=== PATIENT | female | born 1960 | race Caucasian/White ===

== ENCOUNTER 2023-05-26 19:11 | Inpatient (IN) ==
[2023-05-26] MEDS ORDERED: HYDROmorphone INJ 1 MG/ML SYRINGE IV STA (19:18)
[2023-05-26] MEDS ORDERED: OPTIRAY 320 500ml IV ONE (20:01)
[2023-05-26] MEDS ORDERED: LORazepam 2 MG/1 ML VIAL IV STA (20:02)
--- NOTE | 2023-05-26 20:21 | CT Scan Report ---
Exam(s): CTA CHEST W/WO Contrast IV Amt: 108 ml opti 320 EXAM: CT Angiography Chest Without and With Intravenous Contrast CLINICAL HISTORY: Reason for exam: ro dissection. TECHNIQUE: Axial computed tomographic angiography images of the chest without and with intravenous contrast. CTDI is 48 mGy and DLP is 1765.87 mGy-cm. Automated exposure control was utilized for the study. A dose lowering technique was utilized adhering to the principles of ALARA. MIP reconstructed images were created and reviewed. CONTRAST: Patient received 108 ml opti 320 of IV contrast COMPARISON: None FINDINGS: Pulmonary arteries: Unremarkable. No pulmonary embolus identified. Aorta: Atherosclerotic changes of the aorta. No aortic aneurysm or dissection. Lungs: Focal consolidation in the left lower lobe may represent pneumonia. Nonspecific mass cannot be excluded. Follow-up exam could be performed to reevaluate. Emphysematous changes. Pleural space: Unremarkable. No significant effusion. No pneumothorax. Heart: Coronary artery and aortic valve calcifications. No significant pericardial effusion. No evidence of RV dysfunction. Bones/joints: Degenerative changes of the spine. No acute fracture. No dislocation. Soft tissues: Unremarkable. Lymph nodes: Unremarkable. No enlarged lymph nodes. Liver: Hepatic steatosis. Kidneys and ureters: Left renal cyst. IMPRESSION: 1. No pulmonary embolus identified. 2. Focal consolidation in the left lower lobe may represent pneumonia. Nonspecific mass cannot be excluded. Follow-up exam could be performed to reevaluate. 3. Atherosclerotic changes of the aorta. No aortic aneurysm or dissection. 4. Emphysematous changes. Electronically signed by: Cherie Calzada M.D. 05/26/23 20:20 PM
--- NOTE | 2023-05-26 20:27 | CT Scan Report ---
Exam(s): CTA ABDOMEN + PELVIS With Contrast IV Amt: 108 ml opti 320 EXAM: CT Angiography Abdomen and Pelvis With Intravenous Contrast CLINICAL HISTORY: Reason for exam: ro dissection. TECHNIQUE: Axial computed tomographic angiography images of the abdomen and pelvis with intravenous contrast. CTDI is 48 mGy and DLP is 1765.87 mGy-cm. Automated exposure control was utilized for the study. A dose lowering technique was utilized adhering to the principles of ALARA. MIP reconstructed images were created and reviewed. CONTRAST: Patient received 108 ml opti 320 of IV contrast COMPARISON: None FINDINGS: VASCULATURE: Aorta: Atherosclerotic changes of the vasculature. Mild aneurysmal dilatation of the abdominal aorta, measuring approximately 3.4 cm in diameter. No aortic dissection. Celiac trunk and mesenteric arteries: No acute findings. No occlusion or significant stenosis. Renal arteries: No acute findings. No occlusion or significant stenosis. Iliac arteries: No acute findings. No occlusion or significant stenosis. Lung bases: Please see accompanying CT chest for further details. ABDOMEN: Liver: Hepatic steatosis. Hepatomegaly. Gallbladder and bile ducts: Unremarkable. No calcified stones. No ductal dilation. Pancreas: Unremarkable. No ductal dilation. No mass. Spleen: Splenomegaly. Adrenals: Unremarkable. No mass. Kidneys and ureters: Excreting contrast in the renal collecting systems. No hydronephrosis. Atrophy of the left kidney, hypoenhancement, and asymmetrically decreased excreting contrast. Left renal cyst. Stomach and bowel: Unremarkable. No mucosal thickening. No bowel obstruction or inflammation. PELVIS: Appendix: Normal appendix. Bladder: Distended bladder. Reproductive: Unremarkable as visualized. ABDOMEN and PELVIS: Intraperitoneal space: Unremarkable. No significant fluid collection. No free air. Bones/joints: Mild degenerative changes of the spine. No acute fracture. No dislocation. Soft tissues: Injection granulomas in the right gluteal soft tissues. Lymph nodes: Unremarkable. No enlarged lymph nodes. IMPRESSION: 1. Hepatic steatosis. Hepatomegaly. 2. Splenomegaly. 3. Atherosclerotic changes of the vasculature. Mild aneurysmal dilatation of the abdominal aorta, measuring approximately 3.4 cm in diameter. No aortic dissection. Electronically signed by: Cherie Calzada M.D. 05/26/23 20:25 PM
[2023-05-26 20:32] LABS: Basophils # (auto) 0.05 K/uL (0.00-0.20); Basophils % (auto) 0.6 %; Eosinophils # (auto) 0.11 K/uL (0.00-0.50); Eosinophils % (auto) 1.3 %; Hematocrit (blood only) 44.6 % (37.0-47.0); Hemoglobin 15.4 g/dl (12.0-16.0); Immature Granulocytes # (auto) 0.09 K/uL (0.01-0.20); Immature Granulocytes % (auto) 1.1 %; Lymphocytes # (auto) 1.78 K/uL (1.20-3.40); Lymphocytes % (auto) 21.3 %; Mean Corpuscular Hemoglobin 30.6 pg (25.0-34.0); Mean Corpuscular Hgb Conc 34.5 g/dL (32.0-36.0); Mean Corpuscular Volume 88.7 fL (80.0-100.0); Mean Platelet Volume 10.7 fL (9.4-12.4); Monocytes # (auto) 0.74 K/uL (0.11-0.59); Monocytes % (auto) 8.9 %; Neutrophils # (auto) 5.59 K/uL (1.40-6.50); Neutrophils % (auto) 66.8 %; Platelet Count 252 K/uL (130-400); RDW Coefficient of Variation 12.6 % (11.5-14.5); RDW Standard Deviation 40.7 fL (36.4-46.3); Red Blood Count 5.03 M/uL (4.20-5.40); White Blood Count 8.36 K/ul (4.8-10.8)
[2023-05-26 20:33] LABS: iSTAT Creatinine 0.8 mg/dl (0.6-1.3); iSTAT Hemoglobin 15.3 g/dl (12.0-16.0); iSTAT Ionized Calcium 1.13 mmol/l (1.12-1.32); iSTAT Potassium 5.2 mmol/L (3.3-5.0)
--- NOTE | 2023-05-26 20:38 | Emergency Department Note ---
History of Present Illness General Chief Complaint: Chest Pain Stated Complaint: CHEST PAIN, SOB Time Seen by Provider: 05/26/23 19:12 History of Present Illness Provider Complaint: chest pain Time: 12:00 Duration: intermittent Onset: during rest Pain Location: substernal and left chest Pain Radiation: LUE and jaw/teeth Severity: severe Maximum Pain Intensity: 10 Current Pain Intensity: 10 Quality: + heaviness and + sharp Relieved By: + nitroglycerin and + other (Morphine) Exacerbated By: + nothing Context: no recent illness, no recent surgery, no recent immobilization, no recent travel, no trauma/injury, no new medications or no history of DVT/PE Associated symptoms: + dyspnea; no nausea, no vomiting, no diaphoresis, no syncope, no palpitations, no fever, no cough or no leg swelling Treatments prior to arrival: aspirin, nitroglycerin, oxygen and other (Morphine) Home Medications Medication Instructions Recorded Confirmed Type aspirin 81 mg tablet,delayed 81 mg PO DAILY 01/09/20 05/26/23 History release (Adult Low Dose Aspirin) levothyroxine 50 mcg tablet 50 mcg PO DAILY 01/09/20 05/26/23 History (Synthroid) ondansetron HCl 4 mg tablet 4 mg PO QID PRN nausea and 07/28/22 05/26/23 Rx vomiting #30 tabs albuterol sulfate 90 mcg/actuation 2 puff inhalation QID PRN 01/13/23 05/26/23 Rx aerosol inhaler shortness of breath or wheezing #6.7 grams budesonide-formoterol HFA 80 2 puff inhalation BID #10.2 grams 01/13/23 05/26/23 Rx mcg-4.5 mcg/actuation aerosol inhaler (Symbicort) nitroglycerin 0.4 mg sublingual 0.4 mg sublingual Q5M PRN chest 01/14/23 05/26/23 Rx tablet pain #30 tabs clopidogrel 75 mg tablet (Plavix) 75 mg PO DAILY #90 tabs 03/30/23 05/26/23 Rx pregabalin 150 mg capsule (Lyrica) 150 mg PO TID #90 caps 04/30/23 05/26/23 Rx carvedilol 25 mg tablet 25 mg PO BID #60 tabs 05/05/23 05/26/23 Rx furosemide 40 mg tablet 40 mg PO DAILY PRN edema #30 tabs 05/05/23 05/26/23 Rx prednisone 20 mg tablet 40 mg PO DAILY 5 days #10 tabs 05/17/23 05/26/23 Rx metformin 500 mg tablet 500 mg PO BID #60 tabs 05/18/23 05/26/23 Rx hydrocodone 10 mg-acetaminophen 1 tab PO Q8H PRN pain #90 tabs 05/20/23 05/26/23 Rx 325 mg tablet atorvastatin 40 mg tablet 40 mg PO HS 05/26/23 05/26/23 History cholecalciferol (vitamin D3) 25 25 mcg PO DAILY 05/26/23 05/26/23 History mcg (1,000 unit) tablet (Vitamin D3) levocetirizine 5 mg tablet (Xyzal) 5 mg PO DAILY PRN allergies 05/26/23 05/26/23 History lorazepam 0.5 mg tablet (Ativan) 0.5 mg PO TID PRN anxiety 05/26/23 05/26/23 History Allergies Allergy/AdvReac Type Severity Reaction Status Date / Time Influenza Virus Vaccines AdvReac Unknown developed Verified 05/26/23 22:22 blood clots vaccine adjuvant system, AdvReac blood clots Verified 05/26/23 22:23 [id number] liposomal [From Shingrix (PF)] varicella-zoster virus AdvReac blood clots Verified 05/26/23 22:23 glycoprotein E, recombinant [From Shingrix (PF)] Past Med/Surg History Medical History COPD (chronic obstructive pulmonary disease) CVD (cardiovascular disease) History of myocardial infarction x 5 History of TIA (transient ischemic attack) Hypertensive urgency Hypotension Pt's BPs were changed over the phone by the architectural draftsperson provider a few days ago. she is basically now on the meds listed below. She came in today for a BP check and is dizzy. Her BP is very low. She is alert and awake and able to ambulate on her own. I had asked to go ahead and go home and that I will go over her meds and call her in a bit ( drove her home). pt was agreeable. the following is the task I sent regarding changing her meds (since she is obviously taking too many/too much): Please call pt and tell her that I reviewed her BP meds: she is currently on: -Amlodipine 2.5 mg daily. -Carvedilol 12.5mg BID. -Chlorthalidone 25mg daily. -Losartan 50mg daily. (PLEASE REVIEW THIS WITH HER TO MAKE SURE THAT IS WHAT SHE IS CURRENTLY TAKING). I want her to STOP the losartan but continue with the rest and come for BP check on wednesday (nurse visit). thank you very much! Hypothyroid Onychomycosis Routine health maintenance Surgical History History of section History of cholecystectomy History of cholecystectomy History of coronary artery stent placement Family History Mother Myocardial infarction Daughter Myocardial infarction Denies family history of Ovarian cancer Prostate cancer Breast cancer Colorectal cancer Social History Smoking Status: Former smoker Cigarettes Per Day: 5-10; Second Hand Exposure: Yes; Do You Dip or Chew Tobacco: No; Hx Alcohol Use: No Hx Substance Use: No Preferred Language: Tuvaluan Current Living Situation: Family current occupational status: disabled Feels Safe at Home: Yes caffeine: Yes (Coffee) Dental Care, Regularly: No Physical Activity Frequency: Daily Physical Activity Frequency Comment: Daily housework/activites Seatbelt Use: always Sunscreen Use: No Physical Exam Vital Signs Vital Signs - 24 hr 05/26/23 19:16 05/26/23 19:23 05/26/23 20:08 Temperature 36.9 C Temperature Source Oral Pulse Rate 80 95 H Pulse Rhythm Regular Pulse Strength Normal Respiratory Rate 24 Respiratory Effort / Characteristics Non-Labored Spontaneous Respiratory Depth Normal Respiratory Pattern Regular Blood Pressure 221/136 H Blood Pressure Mean 164 Blood Pressure Position Lying Pulse Oximetry 98 98 Oxygen Delivery Method Nasal Cannula Nasal Cannula Oxygen Flow Rate 2 2 Sepsis Recent Fever Within 48 Hours No Sepsis New/Unexplained Change in Mental Status N/A Sepsis Action Taken by Nursing No Action Required Physical Exam HENT: Exam performed. -Head: Normocephalic and atraumatic. -Mouth/Throat: The oropharynx is clear and moist. No trismus in the jaw. No dental abscesses or uvula swelling. No oropharyngeal exudate or tonsillar abs cesses. NECK: Normal range of motion. Neck supple. No JVD present. No tracheal deviation and normal range of motion present. CV: Normal rate, regular rhythm, normal heart sounds and intact distal pulses. There is no peripheral edema. Palpable radial pulses bue. PULM/CHEST: Scant expiratory wheezes. ABD: The abdomen is soft. There is no tenderness. There is no rebound, no guarding MUSC/SKEL: Normal range of motion. There is no peripheral edema, tenderness or deformity. Palpable radial pulses bilateral upper extremities. NEURO: Motor and sensation grossly intact. Course Course 1911: The patient was evaluated in room B4. A complete history and physical exam was performed Cardiac monitoring: An order was placed for continuous cardiac monitoring. The monitor shows a rate of 90 with sinus rhythm interpreted by me Patient is still reporting chest pain despite nitroglycerin and morphine. Her blood pressure is severely elevated. Patient be taken for CTA of the chest rule out dissection. 1999: CTA of the chest viewed by me shows no dissection. 2109: Vital signs stable. CTA angio of the chest and abdomen pelvis showed no dissection. EKG showed no STEMI. Patient is more comfortable status post Dilaudid. Troponin is mildly elevated at 18.1, [facility] team Dr. Claros notified. Administered Medications Discontinued Medications Hydrocodone Bitart/Acetaminophen (Hydrocodone/Acetaminophen 10/325 Tab) 1 tab PO NOW STA Stop: 05/26/23 21:53 Last Admin: 05/26/23 23:02 Dose: 1 tab Documented By: ACC Atorvastatin Calcium (Atorvastatin 40 Mg Tab) 40 mg PO NOW STA Stop: 05/26/23 21:53 Last Admin: 05/26/23 23:01 Dose: 40 mg Documented By: ACC Carvedilol (Carvedilol 25 Mg Tab) 25 mg PO NOW STA Stop: 05/26/23 21:58 Last Admin: 05/26/23 23:01 Dose: 25 mg Documented By: ACC Hydromorphone HCl (Hydromorphone Inj 1 Mg/Ml Syringe) 1 mg IV NOW STA Stop: 05/26/23 19:19 Last Admin: 05/26/23 20:01 Dose: 1 mg Documented By: ACC Ioversol (Optiray 320 500ml) 108 ml IV ONCE ONE Stop: 05/26/23 20:02 Last Admin: 05/26/23 20:01 Dose: 108 ml Documented By: PLW Lorazepam (Lorazepam 2 Mg/1 Ml Vial) 1 mg IV NOW STA Stop: 05/26/23 20:03 Last Admin: 05/26/23 20:15 Dose: 1 mg Documented By: ACC Lorazepam (Lorazepam 0.5 Mg Tab) 0.5 mg PO NOW STA Stop: 05/26/23 21:53 Last Admin: 05/26/23 23:02 Dose: 0.5 mg Documented By: ACC Pregabalin (Pregabalin 150 Mg Cap) 150 mg PO NOW STA Stop: 05/26/23 21:53 Last Admin: 05/26/23 23:02 Dose: 150 mg Documented By: ACC Medical Decision Making Laboratory Data Attestation: I reviewed the patient's lab results. 05/26/23 20:11 05/26/23 20:11 Labs: Lab Results 05/26/23 05/26/23 05/26/23 Range/Units 20:11 20:11 20:11 WBC 8.36 (4.8-10.8) K/ul RBC 5.03 (4.20-5.40) M/uL Hgb 15.4 (12.0-16.0) g/dl POC Hgb (12.0-16.0) g/dl Hct 44.6 (37.0-47.0) % POC Hct (37-47) % MCV 88.7 (80.0-100.0) fL MCH 30.6 (25.0-34.0) pg MCHC 34.5 (32.0-36.0) g/dL RDW Std Deviation 40.7 (36.4-46.3) fL RDW Coeff of Chanel 12.6 (11.5-14.5) % Plt Count 252 (130-400) K/uL MPV 10.7 (9.4-12.4) fL Immature Gran % (Auto) 1.1 % Neut % (Auto) 66.8 % Lymph % (Auto) 21.3 % Cowley % (Auto) 8.9 % Eos % (Auto) 1.3 % Baso % (Auto) 0.6 % Neut # (Auto) 5.59 (1.40-6.50) K/uL Lymph # (Auto) 1.78 (1.20-3.40) K/uL Cowley # (Auto) 0.74 H (0.11-0.59) K/uL Eos # (Auto) 0.11 (0.00-0.50) K/uL Baso # (Auto) 0.05 (0.00-0.20) K/uL Immature Gran # (Auto) 0.09 (0.01-0.20) K/uL PT 9.7 (9.0-12.0) Seconds INR 0.9 (0.9-1.1) APTT 26.0 (21.0-31.0) Seconds PTT Ratio 0.9 POC Sodium (135-144) mmol/L Sodium 128 L (136-145) mmol/L POC Potassium (3.3-5.0) mmol/L Potassium 4.2 (3.5-5.1) mmol/L POC Chloride (101-112) mmol/L Chloride 96 L (98-107) mmol/L Carbon Dioxide 28 (21-32) mmol/L POC Total CO2 (24-31) mmol/L Anion Gap 4 (3-11) POC Anion Gap (16-25) mmol/L POC BUN (7-18) mg/dl BUN 15 (6-23) mg/dl Creatinine 0.84 (0.6-1.2) mg/dl POC Creatinine (0.6-1.3) mg/dl Est Cr Clr Drug Dosing 85.9 ml/min Est GFR ( Amer) 85.1 ml/min Est GFR (Non-Af Amer) 73.4 ml/min BUN/Creatinine Ratio 17.9 (10-20) Glucose 161 H (70-99(Fasting)) mg/dl POC Glucose (other) (70-99) mg/dl Calcium 9.7 (8.6-10.3) mg/dl POC Ioniz Calcium Mariann (1.12-1.32) mmol/l Total Bilirubin 0.8 (0.2-1.0) mg/dl AST 11 L (13-39) U/L ALT 15 (7-52) U/L Alkaline Phosphatase 106 H (34-104) U/L Troponin I High Sens 18.1 H (0-14) pg/ml Total Protein 7.6 (6.0-8.3) gm/dl Albumin 4.4 (3.4-5.0) gm/dl Globulin 3.2 (2.5-4.0) gm/dl Albumin/Globulin Ratio 1.4 (0.9-2) Lipase 36 (11-82) U/L 05/26/23 Range/Units 20:20 WBC (4.8-10.8) K/ul RBC (4.20-5.40) M/uL Hgb (12.0-16.0) g/dl POC Hgb 15.3 (12.0-16.0) g/dl Hct (37.0-47.0) % POC Hct 45 (37-47) % MCV (80.0-100.0) fL MCH (25.0-34.0) pg MCHC (32.0-36.0) g/dL RDW Std Deviation (36.4-46.3) fL RDW Coeff of Chanel (11.5-14.5) % Plt Count (130-400) K/uL MPV (9.4-12.4) fL Immature Gran % (Auto) % Neut % (Auto) % Lymph % (Auto) % Cowley % (Auto) % Eos % (Auto) % Baso % (Auto) % Neut # (Auto) (1.40-6.50) K/uL Lymph # (Auto) (1.20-3.40) K/uL Cowley # (Auto) (0.11-0.59) K/uL Eos # (Auto) (0.00-0.50) K/uL Baso # (Auto) (0.00-0.20) K/uL Immature Gran # (Auto) (0.01-0.20) K/uL PT (9.0-12.0) Seconds INR (0.9-1.1) APTT (21.0-31.0) Seconds PTT Ratio POC Sodium 130 L (135-144) mmol/L Sodium (136-145) mmol/L POC Potassium 5.2 H (3.3-5.0) mmol/L Potassium (3.5-5.1) mmol/L POC Chloride 94 L (101-112) mmol/L Chloride (98-107) mmol/L Carbon Dioxide (21-32) mmol/L POC Total CO2 28 (24-31) mmol/L Anion Gap (3-11) POC Anion Gap 14.0 L (16-25) mmol/L POC BUN 18 (7-18) mg/dl BUN (6-23) mg/dl Creatinine (0.6-1.2) mg/dl POC Creatinine 0.8 (0.6-1.3) mg/dl Est Cr Clr Drug Dosing ml/min Est GFR ( Amer) ml/min Est GFR (Non-Af Amer) ml/min BUN/Creatinine Ratio (10-20) Glucose (70-99(Fasting)) mg/dl POC Glucose (other) 159 H (70-99) mg/dl Calcium (8.6-10.3) mg/dl POC Ioniz Calcium Mariann 1.13 (1.12-1.32) mmol/l Total Bilirubin (0.2-1.0) mg/dl AST (13-39) U/L ALT (7-52) U/L Alkaline Phosphatase (34-104) U/L Troponin I High Sens (0-14) pg/ml Total Protein (6.0-8.3) gm/dl Albumin (3.4-5.0) gm/dl Globulin (2.5-4.0) gm/dl Albumin/Globulin Ratio (0.9-2) Lipase (11-82) U/L Imaging Data CT scan - chest: Radiologist's impression: Exam(s): CTA CHEST W/WO Contrast IV Amt: 108 ml opti 320 EXAM: CT Angiography Chest Without and With Intravenous Contrast CLINICAL HISTORY: Reason for exam: ro dissection. TECHNIQUE: Axial computed tomographic angiography images of the chest without and with intravenous contrast. CTDI is 48 mGy and DLP is 1765.87 mGy-cm. Automated exposure control was utilized for the study. A dose lowering technique was utilized adhering to the principles of ALARA. MIP reconstructed images were created and reviewed. CONTRAST: Patient received 108 ml opti 320 of IV contrast COMPARISON: None FINDINGS: Pulmonary arteries: Unremarkable. No pulmonary embolus identified. Aorta: Atherosclerotic changes of the aorta. No aortic aneurysm or dissection. Lungs: Focal consolidation in the left lower lobe may represent pneumonia. Nonspecific mass cannot be excluded. Follow-up exam could be performed to reevaluate. Emphysematous changes. Pleural space: Unremarkable. No significant effusion. No pneumothorax. Heart: Coronary artery and aortic valve calcifications. No significant pericardial effusion. No evidence of RV dysfunction. Bones/joints: Degenerative changes of the spine. No acute fracture. No dislocation. Soft tissues: Unremarkable. Lymph nodes: Unremarkable. No enlarged lymph nodes. Liver: Hepatic steatosis. Kidneys and ureters: Left renal cyst. IMPRESSION: 1. No pulmonary embolus identified. 2. Focal consolidation in the left lower lobe may represent pneumonia. Nonspecific mass cannot be excluded. Follow-up exam could be performed to reevaluate. 3. Atherosclerotic changes of the aorta. No aortic aneurysm or dissection. 4. Emphysematous changes. Electronically signed by: Cherie Calzada M.D. 05/26/23 20:20 PM Dictated:05/26/232019 Transcribed: 05/26/232019 CT scan - abdomen: Radiologist's impression: Exam(s): CTA ABDOMEN + PELVIS With Contrast IV Amt: 108 ml opti 320 EXAM: CT Angiography Abdomen and Pelvis With Intravenous Contrast CLINICAL HISTORY: Reason for exam: ro dissection. TECHNIQUE: Axial computed tomographic angiography images of the abdomen and pelvis with intravenous contrast. CTDI is 48 mGy and DLP is 1765.87 mGy-cm. Automated exposure control was utilized for the study. A dose lowering technique was utilized adhering to the principles of ALARA. MIP reconstructed images were created and reviewed. CONTRAST: Patient received 108 ml opti 320 of IV contrast COMPARISON: None FINDINGS: VASCULATURE: Aorta: Atherosclerotic changes of the vasculature. Mild aneurysmal dilatation of the abdominal aorta, measuring approximately 3.4 cm in diameter. No aortic dissection. Celiac trunk and mesenteric arteries: No acute findings. No occlusion or significant stenosis. Renal arteries: No acute findings. No occlusion or significant stenosis. Iliac arteries: No acute findings. No occlusion or significant stenosis. Lung bases: Please see accompanying CT chest for further details. ABDOMEN: Liver: Hepatic steatosis. Hepatomegaly. Gallbladder and bile ducts: Unremarkable. No calcified stones. No ductal dilation. Pancreas: Unremarkable. No ductal dilation. No mass. Spleen: Splenomegaly. Adrenals: Unremarkable. No mass. Kidneys and ureters: Excreting contrast in the renal collecting systems. No hydronephrosis. Atrophy of the left kidney, hypoenhancement, and asymmetrically decreased excreting contrast. Left renal cyst. Stomach and bowel: Unremarkable. No mucosal thickening. No bowel obstruction or inflammation. PELVIS: Appendix: Normal appendix. Bladder: Distended bladder. Reproductive: Unremarkable as visualized. ABDOMEN and PELVIS: Intraperitoneal space: Unremarkable. No significant fluid collection. No free air. Bones/joints: Mild degenerative changes of the spine. No acute fracture. No dislocation. Soft tissues: Injection granulomas in the right gluteal soft tissues. Lymph nodes: Unremarkable. No enlarged lymph nodes. IMPRESSION: 1. Hepatic steatosis. Hepatomegaly. 2. Splenomegaly. 3. Atherosclerotic changes of the vasculature. Mild aneurysmal dilatation of the abdominal aorta, measuring approximately 3.4 cm in diameter. No aortic dissection. Electronically signed by: Cherie Calzada M.D. 05/26/23 20:25 PM Dictated:05/26/232024 Transcribed: 05/26/232024 Chest x-ray: Attestation: I personally reviewed and interpreted this imaging study as follows: My impression: Chest x-ray negative. Airway clear. No pneumothorax. No consolidation. No cardiomegaly or cephalization.. No free air under the diaphragm. No fractures of the skeletal structures. ECG Data Attestation: I personally reviewed and interpreted this ECG as follows: Additional Comments: EKG 1 at 1919: Sinus rhythm with rate of 79. MA 148 QRS [address] elevation or ST depression. EKG #2 at 2001: Sinus rhythm with a rate of 82. MA QRS and QTc intervals within normal limits. No ST elevation or ST depression. [facility] Narrative 1911: The patient was evaluated in room B4. A complete history and physical exam was performed Cardiac monitoring: An order was placed for continuous cardiac monitoring. The monitor shows a rate of 90 with sinus rhythm interpreted by me Patient is still reporting chest pain despite nitroglycerin and morphine. Her blood pressure is severely elevated. Patient be taken for CTA of the chest rule out dissection. 1999: CTA of the chest viewed by me shows no dissection. 2109: Vital signs stable. CTA angio of the chest and abdomen pelvis showed no dissection. EKG showed no STEMI. Patient is more comfortable status post Dilaudid. Troponin is mildly elevated at 18.1, patient will be admitted to the [facility] hospitalist team Dr. Claros notified. Impression & Plan Chest pain Discharge Plan Visit Data Chief Complaint: Chest Pain Stated Complaint: CHEST PAIN, SOB ED Provider: Cruzito Steve Discharge Problem: Chest pain Patient Disposition: Admitted As Inpatient Forms Stand Alone Forms: My [facility] Prescriptions Prescriptions: No Action ondansetron HCl 4 mg tablet 4 mg PO QID PRN (Reason: nausea and vomiting) Qty: 30 0RF clopidogrel [Plavix] 75 mg tablet 75 mg PO DAILY Qty: 90 1RF pregabalin [Lyrica] 150 mg capsule 150 mg PO TID Qty: 90 2RF metformin 500 mg tablet 500 mg PO BID Qty: 60 2RF hydrocodone-acetaminophen 10-325 mg tablet 1 tab PO Q8H PRN (Reason: pain) Qty: 90 0RF albuterol sulfate 90 mcg/actuation HFA aerosol inhaler 2 puff inhalation QID PRN (Reason: shortness of breath or wheezing) Qty: 6.7 0RF budesonide-formoterol [Symbicort] 80-4.5 mcg/actuation HFA aerosol inhaler 2 puff inhalation BID Qty: 10.2 3RF nitroglycerin 0.4 mg tablet, sublingual 0.4 mg sublingual Q5M PRN (Reason: chest pain) Qty: 30 4RF Rx Instructions: do not exceed 3 doses per episode. call 911 if ongoing chest pain. carvedilol 25 mg tablet 25 mg PO BID Qty: 60 5RF Rx Instructions: must administer with a meal/food furosemide 40 mg tablet 40 mg PO DAILY PRN (Reason: edema) Qty: 30 5RF levothyroxine [Synthroid] 50 mcg tablet 50 mcg PO DAILY aspirin [Adult Low Dose Aspirin] 81 mg tablet,delayed release (DR/EC) 81 mg PO DAILY prednisone 20 mg tablet 40 mg PO DAILY 5 Days Qty: 10 0RF Rx Instructions: Filled on 05/18/2023 for 5 days cholecalciferol (vitamin D3) [Vitamin D3] 25 mcg (1,000 unit) Tablet 25 mcg PO DAILY lorazepam [Ativan] 0.5 mg tablet 0.5 mg PO TID PRN (Reason: anxiety) levocetirizine [Xyzal] 5 mg tablet 5 mg PO DAILY PRN (Reason: allergies) atorvastatin 40 mg tablet 40 mg PO HS Rx Instructions: 40 mg PO at bedtime Referrals Referrals: Katarina Andre MD [Primary Care Provider] - Chest pain Qualifiers: Chest pain type: unspecified Qualified Code(s): R07.9 - Chest pain, unspecified
[2023-05-26 20:54] LABS: Albumin Globulin Ratio 1.4 (0.9-2); Albumin Level 4.4 gm/dl (3.4-5.0); BUN Creatinine Ratio 17.9 (10-20); Bilirubin,Total 0.8 mg/dl (0.2-1.0); Calcium 9.7 mg/dl (8.6-10.3); Creatinine Clr Calc Pharmacy 85.9 ml/min; Est GFR (African American) 85.1 ml/min; Est GFR (Non-African American) 73.4 ml/min; Globulin 3.2 gm/dl (2.5-4.0); Potassium 4.2 mmol/L (3.5-5.1); Total Protein 7.6 gm/dl (6.0-8.3)
[2023-05-26 21:00] LABS: Troponin I High Sensitivity 18.1 pg/ml (0-14)
[2023-05-26 21:05] LABS: INR 0.9 (0.9-1.1); Partial Thromboplastin Ratio 0.9; Prothrombin Time 9.7 Seconds (9.0-12.0)
[2023-05-26] MEDS ORDERED: LORazepam 0.5 MG TAB PO STA (21:52)
[2023-05-26] MEDS ORDERED: PREGABALIN 150 MG CAP PO STA (21:52)
[2023-05-26] MEDS ORDERED: ATORVASTATIN 40 MG TAB PO STA (21:52)
[2023-05-26] MEDS ORDERED: HYDROcodone/ACETAMINOPHEN 10/325 TAB PO STA (21:52)
--- NOTE | 2023-05-26 21:52 | History & Physical Report ---
Date of Service May 26, 2023 Assessment & Plan (1) Chest pain: Plan: Etiology unclear. NO acute EKG changes. Troponin very mildly elevated 18 --> 24. Atypical presentation, do not strongly suspect ACS. -Admit to PCU -Trend troponin -Check 2D echo -Morphine PRN pain -Nitro PRN pain (2) COPD (chronic obstructive pulmonary disease): Plan: With diffuse wheezing. Adequate oxygenation on room air -DuoNeb scheduled -Albuterol PRN -Continue Trelegy -Mucinex 1200mg po BID Followup CT to evaluate consolidation (3) Coronary artery disease: Plan: -ASA 81mg po daily -Continue Atorvasttin 40mg po qHS -Continue Carvedilol 25mg po BID -Continue Plavix 75mg po daily (4) HTN (hypertension), benign: Plan: Chronic. Markedly elevated blood pressure on arrival. Now improved -Continue home Carvedilol -Pain control with Morphine PRN (5) Hypothyroid: Plan: Chronic -Continue Synthroid History of Present Illness Chief Complaint: shoulder, chest pain Primary Care Provider: Katarina Andre MD Sanjuanita Santos is a 63yo female with history of COPD, HTN, HLP, Hypothyroidism and prior TIA presenting with episodes of left shoulder pain/chest pain and neck pain. Patient began having episodes of pain 3-4 days ago. They occur intermittently, last several minutes. Pain involves left face, shoulder, arm and chest. Pain 10/10 in severity, aching/stabbing in nature. She has associated nausea/vomiting as well as diaphoresis and SOB. Patient had an episode at 12:00 prior to arrival. She reports that her pain was very severe. She then had 5-6 additional episodes. She took Nitro and ASA with improvement in symptoms. She denies exacerbating factors. She reports the pain feels like when she needed a stent. Patient seen by her PCP on 05/17/23 with fatigue, congestion, cough and fever. She was started on Prednisone ER Course: Dilaudid 1mg Ativan 1mg Atorvastatin 25mg PO Lyrica 150mg PO Ativan 0.5mg po Morphine 2mg IV Zofran 4mg IV Ativan 0.5mg IV Allergies Allergy/AdvReac Type Severity Reaction Status Date / Time Influenza Virus Vaccines AdvReac Unknown developed Verified 05/26/23 22:22 blood clots vaccine adjuvant system, AdvReac blood clots Verified 05/26/23 22:23 AS01B liposomal [From Shing[employer] (PF)] varicella-zoster virus AdvReac blood clots Verified 05/26/23 22:23 glycoprotein E, recombinant [From [facility] ()] Home Medications Medication Instructions Recorded Confirmed Type aspirin 81 mg tablet,delayed 81 mg PO DAILY 01/09/20 05/26/23 History release (Adult Low Dose Aspirin) levothyroxine 50 mcg tablet 50 mcg PO DAILY 01/09/20 05/26/23 History (Synthroid) ondansetron HCl 4 mg tablet 4 mg PO QID PRN nausea and 07/28/22 05/26/23 Rx vomiting #30 tabs albuterol sulfate 90 mcg/actuation 2 puff inhalation QID PRN 01/13/23 05/26/23 Rx aerosol inhaler shortness of breath or wheezing #6.7 grams budesonide-formoterol HFA 80 2 puff inhalation BID #10.2 grams 01/13/23 05/26/23 Rx mcg-4.5 mcg/actuation aerosol inhaler (Symbicort) nitroglycerin 0.4 mg sublingual 0.4 mg sublingual Q5M PRN chest 01/14/23 05/26/23 Rx tablet pain #30 tabs clopidogrel 75 mg tablet (Plavix) 75 mg PO DAILY #90 tabs 03/30/23 05/26/23 Rx pregabalin 150 mg capsule (Lyrica) 150 mg PO TID #90 caps 04/30/23 05/26/23 Rx carvedilol 25 mg tablet 25 mg PO BID #60 tabs 05/05/23 05/26/23 Rx furosemide 40 mg tablet 40 mg PO DAILY PRN edema #30 tabs 05/05/23 05/26/23 Rx prednisone 20 mg tablet 40 mg PO DAILY 5 days #10 tabs 05/17/23 05/26/23 Rx metformin 500 mg tablet 500 mg PO BID #60 tabs 05/18/23 05/26/23 Rx hydrocodone 10 mg-acetaminophen 1 tab PO Q8H PRN pain #90 tabs 05/20/23 05/26/23 Rx 325 mg tablet atorvastatin 40 mg tablet 40 mg PO HS 05/26/23 05/26/23 History cholecalciferol (vitamin D3) 25 25 mcg PO DAILY 05/26/23 05/26/23 History mcg (1,000 unit) tablet (Vitamin D3) levocetirizine 5 mg tablet (Xyzal) 5 mg PO DAILY PRN allergies 05/26/23 05/26/23 History lorazepam 0.5 mg tablet (Ativan) 0.5 mg PO TID PRN anxiety 05/26/23 05/26/23 History Past Med/Surg History Medical History COPD (chronic obstructive pulmonary disease) CVD (cardiovascular disease) History of myocardial infarction x 5 History of TIA (transient ischemic attack) Hypertensive urgency Hypotension Pt's BPs were changed over the phone by the camera control operator provider a few days ago. she is basically now on the meds listed below. She came in today for a BP check and is dizzy. Her BP is very low. She is alert and awake and able to ambulate on her own. I had asked to go ahead and go home and that I will go over her meds and call her in a bit ( drove her home). pt was agreeable. the following is the task I sent regarding changing her meds (since she is obviously taking too many/too much): Please call pt and tell her that I reviewed her BP meds: she is currently on: -Amlodipine 2.5 mg daily. -Carvedilol 12.5mg BID. -Chlorthalidone 25mg daily. -Losartan 50mg daily. (PLEASE REVIEW THIS WITH HER TO MAKE SURE THAT IS WHAT SHE IS CURRENTLY TAKING). I want her to STOP the losartan but continue with the rest and come for BP check on wednesday (nurse visit). thank you very much! Hypothyroid Onychomycosis Routine health maintenance Surgical History History of section History of cholecystectomy History of cholecystectomy History of coronary artery stent placement Family History Mother Myocardial infarction Daughter Myocardial infarction Denies family history of Ovarian cancer Prostate cancer Breast cancer Colorectal cancer Social History Smoking Status: Former smoker Cigarettes Per Day: 5-10; Second Hand Exposure: Yes; Do You Dip or Chew Tobacco: No; Hx Alcohol Use: No Hx Substance Use: No Preferred Language: Vietnamese Communication Ability: Effective Pricer Required: No Beliefs That Will Affect Care: None Current Living Situation: Spouse current occupational status: disabled Other Information That Helps Us Care for You: No Feels Safe at Home: Yes Safety Concerns: Feels Safe At This Time caffeine: Yes (Coffee) Dental Care, Regularly: No Physical Activity Frequency: Daily Physical Activity Frequency Comment: Daily housework/activites Seatbelt Use: always Sunscreen Use: No Assistive Devices: None Review of Systems Review of Systems: All systems reviewed & are unremarkable except as noted in HPI & below Physical Exam Physical Exam: General: patient resting comfortably, NAD, non-toxic in appearance, AA&O x 4 Skin: warm, dry, intact, no rashes or lesions HEENT: NC/AT, PERRL, EOMI, anicteric sclera, conjunctiva without injection, external ear normal to inspection and nontender, nares patent, moist mucus membranes, dentition intact, no oropharyngeal lesions, neck supple, trachea midline, no LAD, no thyromegaly, no JVD Heart: +S1/S2, regular, no m/r/g, chest wall pain reproducible Lungs: equal air entry bilaterally, diffuse inspiratory and expiratory wheezing Abd: +BS, soft, NT/ND, no masses/organomegaly/ascites Ext: warm, 2+ pulses in UE/LE bilaterally, no clubbing/cyanosis or edema Neuro: nonfocal, patient AA&O x 4, speech intact, no facial droop, moving all extremities on command with equal strength 5/5 Results & Data Results & Data Vital Signs (Past 12 Hours) Vital Signs Temp Pulse Resp BP Pulse Ox O2 Del Method O2 Flow Rate 05/26/23 20:08 95 H 05/26/23 19:23 98 Nasal Cannula 2 05/26/23 19:16 36.9 C 80 24 221/136 H 98 Nasal Cannula 2 Laboratory Results Laboratory Results WBC 8.36 K/ul (4.8-10.8) 05/26/23 20:11 RBC 5.03 M/uL (4.20-5.40) 05/26/23 20:11 Hgb 15.4 g/dl (12.0-16.0) 05/26/23 20:11 POC Hgb 15.3 g/dl (12.0-16.0) 05/26/23 20:20 Hct 44.6 % (37.0-47.0) 05/26/23 20:11 POC Hct 45 % (37-47) 05/26/23 20:20 MCV 88.7 fL (80.0-100.0) 05/26/23 20:11 MCH 30.6 pg (25.0-34.0) 05/26/23 20:11 MCHC 34.5 g/dL (32.0-36.0) 05/26/23 20:11 RDW Std Deviation 40.7 fL (36.4-46.3) 05/26/23 20:11 RDW Coeff of Chanel 12.6 % (11.5-14.5) 05/26/23 20:11 Plt Count 252 K/uL (130-400) 05/26/23 20:11 MPV 10.7 fL (9.4-12.4) 05/26/23 20:11 Immature Gran % (Auto) 1.1 % 05/26/23 20:11 Neut % (Auto) 66.8 % 05/26/23 20:11 Lymph % (Auto) 21.3 % 05/26/23 20:11 [place] % (Auto) 8.9 % 05/26/23 20:11 Eos % (Auto) 1.3 % 05/26/23 20:11 Baso % (Auto) 0.6 % 05/26/23 20:11 Neut # (Auto) 5.59 K/uL (1.40-6.50) 05/26/23 20:11 Lymph # (Auto) 1.78 K/uL (1.20-3.40) 05/26/23 20:11 [place] # (Auto) 0.74 K/uL (0.11-0.59) H 05/26/23 20:11 Eos # (Auto) 0.11 K/uL (0.00-0.50) 05/26/23 20:11 Baso # (Auto) 0.05 K/uL (0.00-0.20) 05/26/23 20:11 Immature Gran # (Auto) 0.09 K/uL (0.01-0.20) 05/26/23 20:11 PT 9.7 Seconds (9.0-12.0) 05/26/23 20:11 INR 0.9 (0.9-1.1) 05/26/23 20:11 APTT 26.0 Seconds (21.0-31.0) 05/26/23 20:11 PTT Ratio 0.9 05/26/23 20:11 POC Sodium 130 mmol/L (135-144) L 05/26/23 20:20 Sodium 128 mmol/L (136-145) L 05/26/23 20:11 POC Potassium 5.2 mmol/L (3.3-5.0) H 05/26/23 20:20 Potassium 4.2 mmol/L (3.5-5.1) 05/26/23 20:11 POC Chloride 94 mmol/L (101-112) L 05/26/23 20:20 Chloride 96 mmol/L (98-107) L 05/26/23 20:11 Carbon Dioxide 28 mmol/L (21-32) 05/26/23 20:11 POC Total CO2 28 mmol/L (24-31) 05/26/23 20:20 Anion Gap 4 (3-11) 05/26/23 20:11 POC Anion Gap 14.0 mmol/L (16-25) L 05/26/23 20:20 POC BUN 18 mg/dl (7-18) 05/26/23 20:20 BUN 15 mg/dl (6-23) 05/26/23 20:11 Creatinine 0.84 mg/dl (0.6-1.2) 05/26/23 20:11 POC Creatinine 0.8 mg/dl (0.6-1.3) 05/26/23 20:20 Est Cr Clr Drug Dosing 85.9 ml/min 05/26/23 20:11 Est GFR ( Amer) 85.1 ml/min 05/26/23 20:11 Est GFR (Non-Af Amer) 73.4 ml/min 05/26/23 20:11 BUN/Creatinine Ratio 17.9 (10-20) 05/26/23 20:11 Glucose 161 mg/dl (70-99(Fasting)) H 05/26/23 20:11 POC Glucose (other) 159 mg/dl (70-99) H 05/26/23 20:20 Calcium 9.7 mg/dl (8.6-10.3) 05/26/23 20:11 POC Ioniz Calcium Mariann 1.13 mmol/l (1.12-1.32) 05/26/23 20:20 Magnesium 1.9 mg/dl (1.7-2.4) 05/27/23 00:57 Total Bilirubin 0.8 mg/dl (0.2-1.0) 05/26/23 20:11 AST 11 U/L (13-39) L 05/26/23 20:11 ALT 15 U/L (7-52) 05/26/23 20:11 Alkaline Phosphatase 106 U/L (34-104) H 05/26/23 20:11 Troponin I High Sens 24.1 pg/ml (0-14) H 05/27/23 00:57 Total Protein 7.6 gm/dl (6.0-8.3) 05/26/23 20:11 Albumin 4.4 gm/dl (3.4-5.0) 05/26/23 20:11 Globulin 3.2 gm/dl (2.5-4.0) 05/26/23 20:11 Albumin/Globulin Ratio 1.4 (0.9-2) 05/26/23 20:11 Lipase 36 U/L (11-82) 05/26/23 20:11 Impressions Abdomen/Pelvis CTA 05/26/23 19:19 Exam(s): CTA ABDOMEN + PELVIS With Contrast IV Amt: 108 ml opti 320 EXAM: CT Angiography Abdomen and Pelvis With Intravenous Contrast CLINICAL HISTORY: Reason for exam: ro dissection. TECHNIQUE: Axial computed tomographic angiography images of the abdomen and pelvis with intravenous contrast. CTDI is 48 mGy and DLP is 1765.87 mGy-cm. Automated exposure control was utilized for the study. A dose lowering technique was utilized adhering to the principles of ALARA. MIP reconstructed images were created and reviewed. CONTRAST: Patient received 108 ml opti 320 of IV contrast COMPARISON: None FINDINGS: VASCULATURE: Aorta: Atherosclerotic changes of the vasculature. Mild aneurysmal dilatation of the abdominal aorta, measuring approximately 3.4 cm in diameter. No aortic dissection. Celiac trunk and mesenteric arteries: No acute findings. No occlusion or significant stenosis. Renal arteries: No acute findings. No occlusion or significant stenosis. Iliac arteries: No acute findings. No occlusion or significant stenosis. Lung bases: Please see accompanying CT chest for further details. ABDOMEN: Liver: Hepatic steatosis. Hepatomegaly. Gallbladder and bile ducts: Unremarkable. No calcified stones. No ductal dilation. Pancreas: Unremarkable. No ductal dilation. No mass. Spleen: Splenomegaly. Adrenals: Unremarkable. No mass. Kidneys and ureters: Excreting contrast in the renal collecting systems. No hydronephrosis. Atrophy of the left kidney, hypoenhancement, and asymmetrically decreased excreting contrast. Left renal cyst. Stomach and bowel: Unremarkable. No mucosal thickening. No bowel obstruction or inflammation. PELVIS: Appendix: Normal appendix. Bladder: Distended bladder. Reproductive: Unremarkable as visualized. ABDOMEN and PELVIS: Intraperitoneal space: Unremarkable. No significant fluid collection. No free air. Bones/joints: Mild degenerative changes of the spine. No acute fracture. No dislocation. Soft tissues: Injection granulomas in the right gluteal soft tissues. Lymph nodes: Unremarkable. No enlarged lymph nodes. IMPRESSION: 1. Hepatic steatosis. Hepatomegaly. 2. Splenomegaly. 3. Atherosclerotic changes of the vasculature. Mild aneurysmal dilatation of the abdominal aorta, measuring approximately 3.4 cm in diameter. No aortic dissection. Electronically signed by: Cherie Calzada M.D. 05/26/23 20:25 PM Chest CTA 05/26/23 19:19 Exam(s): CTA CHEST W/WO Contrast IV Amt: 108 ml opti 320 EXAM: CT Angiography Chest Without and With Intravenous Contrast CLINICAL HISTORY: Reason for exam: ro dissection. TECHNIQUE: Axial computed tomographic angiography images of the chest without and with intravenous contrast. CTDI is 48 mGy and DLP is 1765.87 mGy-cm. Automated exposure control was utilized for the study. A dose lowering technique was utilized adhering to the principles of ALARA. MIP reconstructed images were created and reviewed. CONTRAST: Patient received 108 ml opti 320 of IV contrast COMPARISON: None FINDINGS: Pulmonary arteries: Unremarkable. No pulmonary embolus identified. Aorta: Atherosclerotic changes of the aorta. No aortic aneurysm or dissection. Lungs: Focal consolidation in the left lower lobe may represent pneumonia. Nonspecific mass cannot be excluded. Follow-up exam could be performed to reevaluate. Emphysematous changes. Pleural space: Unremarkable. No significant effusion. No pneumothorax. Heart: Coronary artery and aortic valve calcifications. No significant pericardial effusion. No evidence of RV dysfunction. Bones/joints: Degenerative changes of the spine. No acute fracture. No dislocation. Soft tissues: Unremarkable. Lymph nodes: Unremarkable. No enlarged lymph nodes. Liver: Hepatic steatosis. Kidneys and ureters: Left renal cyst. IMPRESSION: 1. No pulmonary embolus identified. 2. Focal consolidation in the left lower lobe may represent pneumonia. Nonspecific mass cannot be excluded. Follow-up exam could be performed to reevaluate. 3. Atherosclerotic changes of the aorta. No aortic aneurysm or dissection. 4. Emphysematous changes. Electronically signed by: Cherie Calzada M.D. 05/26/23 20:20 PM PG Care Time/CCT Total # of Minutes Spent Total Time Spent with Patient: Total time spent is greater than 50% in coordination of care (as documented) at patient's floor/unit and/or counseling patient: Coding Level of Care Code 84110 INT INP/OBS CARE 3/75MIN Diagnoses Chest pain R07.9 Chest pain type: unspecified COPD (chronic obstructive pulmonary disease) J44.9 Coronary artery disease I25.10 HTN (hypertension), benign I10 Hypothyroid E03.9 (1) Chest pain Chest pain type: unspecified Qualified Code(s): R07.9 - Chest pain, unspecified
[2023-05-26] MEDS ORDERED: carvediloL 25 MG TAB PO STA (21:57)
[2023-05-27] MEDS ORDERED: LORazepam 2 MG/1 ML VIAL IV PRN (00:38)
[2023-05-27] MEDS ORDERED: ALBUTEROL HFA 8 GM INHALER INH PRN (00:51)
[2023-05-27] MEDS ORDERED: NITROGLYCERIN SL 0.4 MG/TAB TAB SL PRN (00:51)
[2023-05-27] MEDS ORDERED: KETOROLAC TROMETHAMINE 15 MG/ML VIAL IV PRN (00:51)
[2023-05-27] MEDS ORDERED: ONDANSETRON INJ 2 MG/ML 2 ML VIAL IV PRN (00:51)
[2023-05-27] MEDS ORDERED: ALBUTEROL 0.5% NEB SOLN 2.5 MG/0.5 ML VIAL NEB PRN (00:51)
[2023-05-27] MEDS ORDERED: MoRPHine SULFATE 2 MG/ML CARP IV PRN (00:51)
[2023-05-27 01:27] LABS: Magnesium 1.9 mg/dl (1.7-2.4)
[2023-05-27] MEDS: MoRPHine SULFATE 2 MG/ML CARP IV PRN ×3 (01:30→20:30)
[2023-05-27 01:34] LABS: Troponin I High Sensitivity 24.1 pg/ml (0-14)
[2023-05-27] MEDS: ALBUT/IPRATROP 3MG/0.5MG NEB 3 ML VIAL NEB SCH ×7 (03:31→22:58)
[2023-05-27 04:43] LABS: Hematocrit (blood only) 40.4 % (37.0-47.0); Hemoglobin 14.1 g/dl (12.0-16.0); Mean Corpuscular Hemoglobin 31.2 pg (25.0-34.0); Mean Corpuscular Hgb Conc 34.9 g/dL (32.0-36.0); Mean Corpuscular Volume 89.4 fL (80.0-100.0); Mean Platelet Volume 10.8 fL (9.4-12.4); Platelet Count 199 K/uL (130-400); RDW Coefficient of Variation 12.6 % (11.5-14.5); Red Blood Count 4.52 M/uL (4.20-5.40); White Blood Count 7.46 K/ul (4.8-10.8)
[2023-05-27 04:59] LABS: Albumin Level 3.8 gm/dl (3.4-5.0); BUN Creatinine Ratio 14.5 (10-20); Bilirubin Direct 0.1 mg/dl (0-0.2); Bilirubin,Total 0.6 mg/dl (0.2-1.0); Calcium 9.2 mg/dl (8.6-10.3); Creatinine Clr Calc Pharmacy 86.9 ml/min; Est GFR (African American) 86.4 ml/min; Est GFR (Non-African American) 74.5 ml/min; Potassium 4.2 mmol/L (3.5-5.1); Total Protein 6.6 gm/dl (6.0-8.3)
[2023-05-27] MEDS: LEVOTHYROXINE SODIUM 50 MCG TABLET PO SCH (06:35)
--- NOTE | 2023-05-27 07:39 | XRay Report ---
XR chest 1V portable HISTORY: Chest pain, nonspecific COMPARISON: Chest 01/09/2022. Chest CTA 05/26/2023. FINDINGS: There is a lobular 4.0 x 1.9 cm left lower lobe mass again noted. No pneumothorax. No pleur al effusions. No new focal lung consolidations to suggest a pneumonia. The heart is normal in size. IMPRESSION: 1. Redemonstration of 4.0 x 1.9 cm left lower lobe mass. This is highly suspicious for a neoplasm. Fo llow-up nonemergent pulmonary consultation recommended for further evaluation. 2. This report was called/faxed to emergency department following dictation. ACT 112: Positive. There are findings on this exam that require communication between the performing entity and the patient following Patient Test Result Information Act ([place] Act 112) guidelines. Electronically signed by: Junior Chan M.D. 05/27/2023 7:37 AM
[2023-05-27] MEDS: FLUTICASONE/VILANTEROL 100/25MCG 14 PUFFS/INHALER INH SCH (07:46)
[2023-05-27] MEDS: guaiFENesin 600 MG TABCR PO SCH ×2 (07:46→20:26)
[2023-05-27] MEDS: ASPIRIN 81 MG ECTAB PO SCH (07:46)
[2023-05-27] MEDS: CLOPIDOGREL BISULFATE 75 MG TAB PO SCH (07:46)
[2023-05-27] MEDS: carvediloL 25 MG TAB PO SCH ×2 (07:46→20:26)
[2023-05-27] MEDS: HYDROcodone/ACETAMINOPHEN 10/325 TAB PO PRN ×2 (07:56→17:35)
[2023-05-27] MEDS ORDERED: Nursing to Pharmacy Communication SCH (08:00)
[2023-05-27] MEDS ORDERED: PREGABALIN 150 MG CAP PO SCH ×2 (08:00→09:00)
[2023-05-27] MEDS: PREGABALIN 150 MG CAP PO SCH ×3 (08:11→20:30)
--- NOTE | 2023-05-27 08:27 | Hospitalist Progress Note ---
Date of Service May 27, 2023 Assessment & Plan (1) Chest pain: (2) COPD (chronic obstructive pulmonary disease): (3) Coronary artery disease: (4) HTN (hypertension), benign: (5) Hypothyroid: (6) Mass of lower lobe of left lung: Plan Sanjuanita Santos is a 63yo female with history of CAD, COPD, HTN, HLP, Hypothyroidism and prior TIA presenting with episodes of left shoulder pain/chest pain and neck pain. #Elevated troponin - EKG without dynamic changes; Mildly elevated troponin: 18 -->24-->27-->43 - Echocardiogram ordered, no regional wall motion abnormalities noted, significant for grade 1 diastolic dysfunction, mild to moderate aortic stenosis - Cardiology consulted, recommend: - Given extensive cardiac history - Consider nuclear imaging study #Chest Pain - Given extensive work up without significant findings, it is unlikely that chest pain is of cardiac etiology, more likely to be GI or anxiety related - PPi therapy, start Pantoprazole 40mg daily #CAD - Continue ASA and Plavix - Continue Atorvastatin - Continue Carvedilol #Consolidation/mass of left lower lobe of lung: - CXR: Redemonstration of 4.0 x 1.9 cm left lower lobe mass. This is highly suspicious for a neoplasm. Follow-up nonemergent pulmonary consultation recommended for further evaluation - Recommend follow up in the outpatient setting #COPD - DuoNeb scheduled - Albuterol prn - Continue Trelegy - Mucinex BID #HTN - Continue Metoprolol - given labile blood pressure with hypertensive predominance, start Clonidine 0.1mg BID with additional dosing as needed #Hypothyroidism: - Continue Synthroid #Fibromyalgia -On lyrica #Anxiety -On prn lorazepam at home. -Considering all the stress she is under - recent son , terminally ill - Discussed adding SSRI - will start lexapro in am Diet: HH VTE ppx: Lovenox Admission and Anticipated Discharge Date Admission Date: May 26, 2023 Supervising Physician Co-Signing Physician Notes Resident Physician Supervision Note: I independently interviewed and examined the patient and verified the franks history and physical, reviewed labs and image studies and agree with resident findings and care plan. Subjective Sanjuanita Santos is a 63yo female with history of CAD, COPD, HTN, HLP, Hypothyroidism and prior TIA presenting with episodes of left shoulder pain/chest pain and neck pain. Patient evaluated at bedside, appears to be in mild discomfort. States that chest pain is much better but she still feels a baseline level of discomfort. Also endorses mild nausea, denies vomiting. Denies SOB. Review of Systems Review of Systems: All systems reviewed & are unremarkable except as noted in HPI & below Physical Exam Constitutional: WD/WN, vitals as above + acute distress Neck: trachea midline, no thyromegaly Respiratory: Bilateral wheezes appreciated on auscultation, breath sounds equal bilaterally, mildly diminished breath sounds. Cardiovascular: RRR, mild systolic murmur appreciated on auscultation. Reproducible pain with palpation of anterior chest wall. Gastrointestinal (Abdomen): Non-tender, non-distended. Normal bowel sounds. Skin: no rashes, warm and dry Psychiatric: A+Ox3, euthymic affect Results & Data Results & Data Vital Signs (Past 12 Hours) Vital Signs Pulse Pulse Resp BP BP Pulse Ox O2 Del Method 05/27/23 08:02 Room Air 05/27/23 08:01 74 20 195/114 H 95 Room Air 05/27/23 07:02 71 05/27/23 06:58 77 18 92 Room Air 05/27/23 03:34 78 17 100/60 92 Nasal Cannula 05/27/23 03:00 79 17 166/98 H 92 Nasal Cannula 05/27/23 03:25 85 18 94 Nasal Cannula 05/27/23 02:30 87 19 95 05/27/23 02:01 89 18 94 05/27/23 02:01 132/78 05/27/23 02:00 81 14 95 05/27/23 01:31 81 17 05/27/23 01:00 84 26 H 88 L 05/27/23 01:00 164/112 H 05/27/23 00:52 84 23 90 05/27/23 00:52 160/103 H 05/27/23 00:31 89 18 90 05/27/23 00:04 91 05/26/23 23:30 92 H 20 05/26/23 23:30 212/150 H 05/26/23 23:09 229/146 H 05/26/23 23:09 86 25 H 05/26/23 23:01 91 H 20 05/26/23 22:30 94 H 19 93 05/26/23 22:30 187/112 H 05/26/23 22:01 179/107 H 05/26/23 22:01 93 05/26/23 22:00 94 05/26/23 22:00 46/34 L 05/26/23 21:30 93 H 24 93 05/26/23 21:30 173/101 H 05/26/23 21:00 89 21 92 05/26/23 21:00 203/128 H 05/26/23 20:30 92 H 18 92 05/26/23 20:30 185/114 H 05/27/23 02:27 97 Nasal Cannula 05/27/23 00:51 92 H O2 Flow Rate 05/27/23 08:02 05/27/23 08:01 05/27/23 07:02 05/27/23 06:58 05/27/23 03:34 2 05/27/23 03:00 2 05/27/23 03:25 2 05/27/23 02:30 05/27/23 02:01 05/27/23 02:01 05/27/23 02:00 05/27/23 01:31 05/27/23 01:00 05/27/23 01:00 05/27/23 00:52 05/27/23 00:52 05/27/23 00:31 05/27/23 00:04 05/26/23 23:30 05/26/23 23:30 05/26/23 23:09 05/26/23 23:09 05/26/23 23:01 05/26/23 22:30 05/26/23 22:30 05/26/23 22:01 05/26/23 22:01 05/26/23 22:00 05/26/23 22:00 05/26/23 21:30 05/26/23 21:30 05/26/23 21:00 05/26/23 21:00 05/26/23 20:30 05/26/23 20:30 05/27/23 02:27 2 05/27/23 00:51 Laboratory Results Abnormal lab results 05/26/23 05/26/23 05/26/23 Range/Units 20:11 20:11 20:20 [place] # (Auto) 0.74 H (0.11-0.59) K/uL POC Sodium 130 L (135-144) mmol/L Sodium 128 L (136-145) mmol/L POC Potassium 5.2 H (3.3-5.0) mmol/L POC Chloride 94 L (101-112) mmol/L Chloride 96 L (98-107) mmol/L POC Anion Gap 14.0 L (16-25) mmol/L Glucose 161 H (70-99(Fasting)) mg/dl POC Glucose (other) 159 H (70-99) mg/dl AST 11 L (13-39) U/L Alkaline Phosphatase 106 H (34-104) U/L Troponin I High Sens 18.1 H (0-14) pg/ml 05/27/23 05/27/23 05/27/23 Range/Units 00:57 04:06 10:50 [place] # (Auto) (0.11-0.59) K/uL POC Sodium (135-144) mmol/L Sodium 131 L (136-145) mmol/L POC Potassium (3.3-5.0) mmol/L POC Chloride (101-112) mmol/L Chloride (98-107) mmol/L POC Anion Gap (16-25) mmol/L Glucose 230 H (70-99(Fasting)) mg/dl POC Glucose (other) (70-99) mg/dl AST 12 L (13-39) U/L Alkaline Phosphatase (34-104) U/L Troponin I High Sens 24.1 H 27.0 H 43.0 H D (0-14) pg/ml Diagnostic Findings Chest X-Ray 05/26/23 19:18 XR chest 1V portable HISTORY: Chest pain, nonspecific COMPARISON: Chest 01/09/2022. Chest CTA 05/26/2023. FINDINGS: There is a lobular 4.0 x 1.9 cm left lower lobe mass again noted. No pneumothorax. No pleural effusions. No new focal lung consolidations to suggest a pneumonia. The heart is normal in size. IMPRESSION: 1. Redemonstration of 4.0 x 1.9 cm left lower lobe mass. This is highly suspicious for a neoplasm. Follow-up nonemergent pulmonary consultation recommended for further evaluation. 2. This report was called/faxed to emergency department following dictation. ACT 112: Positive. There are findings on this exam that require communication between the performing entity and the patient following Patient Test Result Information Act ([place] Act 112) guidelines. Electronically signed by: Junior Chan M.D. 05/27/2023 7:37 AM Abdomen/Pelvis CTA 05/26/23 19:19 Exam(s): CTA ABDOMEN + PELVIS With Contrast IV Amt: 108 ml opti 320 EXAM: CT Angiography Abdomen and Pelvis With Intravenous Contrast CLINICAL HISTORY: Reason for exam: ro dissection. TECHNIQUE: Axial computed tomographic angiography images of the abdomen and pelvis with intravenous contrast. CTDI is 48 mGy and DLP is 1765.87 mGy-cm. Automated exposure control was utilized for the study. A dose lowering technique was utilized adhering to the principles of ALARA. MIP reconstructed images were created and reviewed. CONTRAST: Patient received 108 ml opti 320 of IV contrast COMPARISON: None FINDINGS: VASCULATURE: Aorta: Atherosclerotic changes of the vasculature. Mild aneurysmal dilatation of the abdominal aorta, measuring approximately 3.4 cm in diameter. No aortic dissection. Celiac trunk and mesenteric arteries: No acute findings. No occlusion or significant stenosis. Renal arteries: No acute findings. No occlusion or significant stenosis. Iliac arteries: No acute findings. No occlusion or significant stenosis. Lung bases: Please see accompanying CT chest for further details. ABDOMEN: Liver: Hepatic steatosis. Hepatomegaly. Gallbladder and bile ducts: Unremarkable. No calcified stones. No ductal dilation. Pancreas: Unremarkable. No ductal dilation. No mass. Spleen: Splenomegaly. Adrenals: Unremarkable. No mass. Kidneys and ureters: Excreting contrast in the renal collecting systems. No hydronephrosis. Atrophy of the left kidney, hypoenhancement, and asymmetrically decreased excreting contrast. Left renal cyst. Stomach and bowel: Unremarkable. No mucosal thickening. No bowel obstruction or inflammation. PELVIS: Appendix: Normal appendix. Bladder: Distended bladder. Reproductive: Unremarkable as visualized. ABDOMEN and PELVIS: Intraperitoneal space: Unremarkable. No significant fluid collection. No free air. Bones/joints: Mild degenerative changes of the spine. No acute fracture. No dislocation. Soft tissues: Injection granulomas in the right gluteal soft tissues. Lymph nodes: Unremarkable. No enlarged lymph nodes. IMPRESSION: 1. Hepatic steatosis. Hepatomegaly. 2. Splenomegaly. 3. Atherosclerotic changes of the vasculature. Mild aneurysmal dilatation of the abdominal aorta, measuring approximately 3.4 cm in diameter. No aortic dissection. Electronically signed by: Cherie Calzada M.D. 05/26/23 20:25 PM Chest CTA 05/26/23 19:19 Exam(s): CTA CHEST W/WO Contrast IV Amt: 108 ml opti 320 EXAM: CT Angiography Chest Without and With Intravenous Contrast CLINICAL HISTORY: Reason for exam: ro dissection. TECHNIQUE: Axial computed tomographic angiography images of the chest without and with intravenous contrast. CTDI is 48 mGy and DLP is 1765.87 mGy-cm. Automated exposure control was utilized for the study. A dose lowering technique was utilized adhering to the principles of ALARA. MIP reconstructed images were created and reviewed. CONTRAST: Patient received 108 ml opti 320 of IV contrast COMPARISON: None FINDINGS: Pulmonary arteries: Unremarkable. No pulmonary embolus identified. Aorta: Atherosclerotic changes of the aorta. No aortic aneurysm or dissection. Lungs: Focal consolidation in the left lower lobe may represent pneumonia. Nonspecific mass cannot be excluded. Follow-up exam could be performed to reevaluate. Emphysematous changes. Pleural space: Unremarkable. No significant effusion. No pneumothorax. Heart: Coronary artery and aortic valve calcifications. No significant pericardial effusion. No evidence of RV dysfunction. Bones/joints: Degenerative changes of the spine. No acute fracture. No dislocation. Soft tissues: Unremarkable. Lymph nodes: Unremarkable. No enlarged lymph nodes. Liver: Hepatic steatosis. Kidneys and ureters: Left renal cyst. IMPRESSION: 1. No pulmonary embolus identified. 2. Focal consolidation in the left lower lobe may represent pneumonia. Nonspecific mass cannot be excluded. Follow-up exam could be performed to reevaluate. 3. Atherosclerotic changes of the aorta. No aortic aneurysm or dissection. 4. Emphysematous changes. Electronically signed by: Cherie Calzada M.D. 05/26/23 20:20 PM Resident Activity Tracking Resident Involvement: Resident Care Provided Care Provided: Adult Hospital Medicine (1) Chest pain Chest pain type: unspecified Qualified Code(s): R07.9 - Chest pain, unspecified
[2023-05-27] MEDS: ACETAMINOPHEN 325 MG TAB PO PRN (10:06)
--- NOTE | 2023-05-27 11:58 | Cardiology Consultation ---
Date of Consultation May 27, 2023 Assessment & Plan (1) Chest pain: (2) Reflux esophagitis: (3) Labile hypertension: (4) Coronary artery disease: (5) S/P coronary artery stent placement: (6) S/P coronary artery stent placement: (7) COPD (chronic obstructive pulmonary disease): (8) Smoker: Plan 63-year-old woman with ongoing tobacco use and multiple prior percutaneous coronary interventions (at least 4 stents) who presents with severe chest pain and equivocal ECG/troponin findings. Given prior history of suspected gastrointestinal etiology for her symptoms during her 2018 hospitalization elsewhere, as well as recent increase in reflux symptoms and initiation of 2 known gastrointestinal irritants a week and a half ago (azithromycin and prednisone), suspect esophageal reflux with spasm as most likely explanation. As such, would recommend proton pump inhibitor such as pantoprazole 40 mg daily (it appears a dose was ordered but would not be given until tomorrow, recommend dosing today and consider Carafate or additional short-term agent if she has further chest pain). It appears her blood pressure has been quite labile both as an outpatient and inpatient. Chronic pain as well as known significant anxiety contribute to this lability, she takes lorazepam, pregabalin, and hydrocodone routinely. In addition to carvedilol she had previously been on amlodipine and chlorthalidone and she takes furosemide intermittently. She does not appear volume overloaded currently and aggressive volume unloading could exacerbate her tendency to hypotension at times, so no immediate need for diuretic. Would recommend clonidine 0.1 mg twice daily to address labile hypertension with minimal risk of hypotension, additional clonidine doses could be given (another at 0.1 mg up to 2 more times daily) on a PRN basis for any acute BP spike. Depending upon her rate of clonidine utilization and her tolerance of any side effects, could consider transitioning to clonidine patch as outpatient. It is reassuring that even when she has marked hypertension she has not had chest discomfort and that she has not had exertional symptoms, both factors weighing against her current chest pain being anginal. Would continue aspirin and clopidogrel given presence of stents and extensive prior history of CAD. Obtain ECG if she has further chest pain to monitor for any dynamic ECG changes. Could obtain myocardial nuclear imaging study to further quantify ischemic burden, if she remains asymptomatic this could be performed as an outpatient, if she continues to have symptoms could possibly obtain nuclear study tomorrow. Would NOT recommend dobutamine stress echocardiogram given her history of Takotsubo syndrome/stress cardiomyopathy, since adrenergic stimulation of dobutamine could precipitate another episode. Dr. River will be rounding tomorrow, I will ask him to follow-up with this patient. She does not yet have a primary cardiology tech, I would be glad to see her in the [facility] office for cardiology follow-up after discharge. History of Present Illness Reason for Consultation: Chest pain Requesting Physician: Angela Peterson MD Attending Physician: Angela Peterson MD History of Present Illness 63-year-old woman with CAD (at least 4 coronary stents, details unknown as she moved here from [place], first intervention 2014/last intervention 2017), Takotsubo cardiomyopathy 2018, labile hypertension, prior TIA, and ongoing tobacco use who was admitted 05/26/2023 with chest pain. She has been noting severe intermittent chest tightness/pain occurring at rest but not exertion. Pain radiates to her left arm and left neck. Can have associated dyspnea, diaphoresis, nausea, and at least 1 episode of vomiting. Nitroglycerin does not have any immediate effect. She can walk up a flight of stairs slowly without dyspnea or chest pain. Her ambulation in general is very limited by significant knee arthralgias. She does note an increase in reflux type symptoms over the past month. She had a recent cough and was started on prednisone and azithromycin. Records from 2018 include a nuclear study that showed mild ischemia of the mid inferior wall with no infarct, EF 68%. Of note, during an admission in 2018 which prompted the nuclear study, she had atypical chest pain which is felt to be potentially gastrointestinal, she was started on Protonix at that time. Evaluation after ER presentation here included 3 ECGs which show sinus rhythm with very mild anterior ST depression and mild lateral T wave inversions. The ST depression does appear new compared with 05/05/2023 ECG, but is unchanged on the 3 tracings here and does not appear dynamic. Troponin values range between 18 and 43 with an increase on the latest of 4 draws. BP has been very labile with values ranging from 100/60 mmHg to 221/136 mmHg. Rhythm has been sinus with rates of 70-90 bpm and no significant ectopy or dysrhythmias. She has not had chest pain since yesterday. Her BP has been very labile but she has had no symptoms associated with these blood pressure swings. She had no somatic complaints at the time of my evaluation this morning. Allergies Allergy/AdvReac Type Severity Reaction Status Date / Time Influenza Virus Vaccines AdvReac Unknown developed Verified 05/26/23 22: blood clots vaccine adjuvant system, AdvReac blood clots Verified 05/26/23 22:23 [id number] liposomal [From Shingrix (PF)] varicella-zoster virus AdvReac blood clots Verified 05/26/23 22: glycoprotein E, recombinant [From Shingrix (PF)] Home Medications Medication Instructions Recorded Confirmed Type aspirin 81 mg tablet,delayed 81 mg PO DAILY 01/09/20 05/26/23 History release (Adult Low Dose Aspirin) levothyroxine 50 mcg tablet 50 mcg PO DAILY 01/09/20 05/26/23 History (Synthroid) ondansetron HCl 4 mg tablet 4 mg PO QID PRN nausea and 07/28/22 05/26/23 Rx vomiting #30 tabs albuterol sulfate 90 mcg/actuation 2 puff inhalation QID PRN 01/13/23 05/26/23 Rx aerosol inhaler shortness of breath or wheezing #6.7 grams budesonide-formoterol HFA 80 2 puff inhalation BID #10.2 grams 01/13/23 05/26/23 Rx mcg-4.5 mcg/actuation aerosol inhaler (Symbicort) nitroglycerin 0.4 mg sublingual 0.4 mg sublingual Q5M PRN chest 01/14/23 05/26/23 Rx tablet pain #30 tabs clopidogrel 75 mg tablet (Plavix) 75 mg PO DAILY #90 tabs 03/30/23 05/26/23 Rx pregabalin 150 mg capsule (Lyrica) 150 mg PO TID #90 caps 04/30/23 05/26/23 Rx carvedilol 25 mg tablet 25 mg PO BID #60 tabs 05/05/23 05/26/23 Rx furosemide 40 mg tablet 40 mg PO DAILY PRN edema #30 tabs 05/05/23 05/26/23 Rx prednisone 20 mg tablet 40 mg PO DAILY 5 days #10 tabs 05/17/23 05/26/23 Rx metformin 500 mg tablet 500 mg PO BID #60 tabs 05/18/23 05/26/23 Rx hydrocodone 10 mg-acetaminophen 1 tab PO Q8H PRN pain #90 tabs 05/20/23 05/26/23 Rx 325 mg tablet atorvastatin 40 mg tablet 40 mg PO HS 05/26/23 05/26/23 History cholecalciferol (vitamin D3) 25 25 mcg PO DAILY 05/26/23 05/26/23 History mcg (1,000 unit) tablet (Vitamin D3) levocetirizine 5 mg tablet (Xyzal) 5 mg PO DAILY PRN allergies 05/26/23 05/26/23 History lorazepam 0.5 mg tablet (Ativan) 0.5 mg PO TID PRN anxiety 05/26/23 05/26/23 History Patient History Medical History COPD (chronic obstructive pulmonary disease) CVD (cardiovascular disease) History of myocardial infarction x 5 History of TIA (transient ischemic attack) Hypertensive urgency Hypotension Pt's BPs were changed over the phone by the oncology technician provider a few days ago. she is basically now on the meds listed below. She came in today for a BP check and is dizzy. Her BP is very low. She is alert and awake and able to ambulate on her own. I had asked to go ahead and go home and that I will go over her meds and call her in a bit ( drove her home). pt was agreeable. the following is the task I sent regarding changing her meds (since she is obviously taking too many/too much): Please call pt and tell her that I reviewed her BP meds: she is currently on: -Amlodipine 2.5 mg daily. -Carvedilol 12.5mg BID. -Chlorthalidone 25mg daily. -Losartan 50mg daily. (PLEASE REVIEW THIS WITH HER TO MAKE SURE THAT IS WHAT SHE IS CURRENTLY TAKING). I want her to STOP the losartan but continue with the rest and come for BP check on wednesday (nurse visit). thank you very much! Hypothyroid Onychomycosis Routine health maintenance Surgical History History of section History of cholecystectomy History of cholecystectomy History of coronary artery stent placement Family History Mother Myocardial infarction Daughter Myocardial infarction Denies family history of Ovarian cancer Prostate cancer Breast cancer Colorectal cancer Social History Smoking Status: Former smoker Cigarettes Per Day: 5-10; Second Hand Exposure: Yes; Do You Dip or Chew Tobacco: No; Hx Alcohol Use: No Hx Substance Use: No Preferred Language: Iranian Communication Ability: Effective Fountain Attendant Required: No Beliefs That Will Affect Care: None Current Living Situation: Spouse current occupational status: disabled Other Information That Helps Us Care for You: No Feels Safe at Home: Yes Safety Concerns: Feels Safe At This Time caffeine: Yes (Coffee) Dental Care, Regularly: No Physical Activity Frequency: Daily Physical Activity Frequency Comment: Daily housework/activites Seatbelt Use: always Sunscreen Use: No Assistive Devices: None Physical Exam Physical Exam: No distress. Somewhat somnolence but answered all questions appropriately and was fully oriented. Very labile BP, last reading 173/112 mmHg. Skin: no ecchymoses or generalized lesions. HEENT: unremarkable. Neck: JVP demonstrates wide respiratory variation with meniscus only minimally elevated, murmur transmitted to the carotids. Lungs: Moderately decreased breath sounds with occasional expiratory wheeze, no accessory muscle use or crackles. Cardiac: regular rhythm, intact aortic closure sound, 2/6 systolic ejection murmur right upper sternal border rating to the carotids, 2/6 apical holosystolic murmur, no diastolic murmur. Abdomen: Mild epigastric tenderness, nondistended. Extremities: no edema, pulses intact. Neurologic: Somnolent affect but appropriate conversation, grossly nonfocal. Results & Data Laboratory Results Troponin values 18, 24, 27, and 43. Sodium 131, normal potassium, BUN 12, creatinine 0.83. Normal CBC. Cholesterol from earlier this month was 118 total. Diagnostic Findings ECG as noted in HPI. Chest x-ray with left lower lobe mass. Chest CT with no pulmonary embolism but with emphysematous changes, atherosclerosis of the aorta, and focal consolidation of the left lower lobe. Abdominal CT showed hepatomegaly, splenomegaly, atherosclerotic vasculature changes, mild abdominal aortic dilatation (3.4 cm) without dissection. PG Care Time/CCT Total # of Minutes Spent Total Time Spent with Patient: Total time spent is greater than 50% in coordination of care (as documented) at patient's floor/unit and/or counseling patient: Coding Level of Care Code 37871 INT INP/OBS CARE MIN Diagnoses Chest pain R07.9 Chest pain type: unspecified Reflux esophagitis K21.00 Labile hypertension R09.89 Coronary artery disease I25.10 S/P coronary artery stent placement Z95.5 COPD (chronic obstructive pulmonary disease) J44.9 Smoker F17.200 (1) Chest pain Chest pain type: unspecified Qualified Code(s): R07.9 - Chest pain, unspecifi ed
[2023-05-27] MEDS ORDERED: cloNIDine HCL 0.1 MG TAB PO ONE (12:02)
[2023-05-27] MEDS ORDERED: PANTOprazole 40 MG TAB PO ONE (12:56)
--- NOTE | 2023-05-27 13:17 | Electrocardiogram Report ---
Test Reason : Blood Pressure : / mmHG Vent. Rate : 079 BPM Atrial Rate : 079 BPM P-R Int : 148 ms QRS Dur : 076 ms QT Int : 380 ms P-R-T Axes : 025 008 -29 degrees QTc Int : 435 ms Normal sinus rhythm Nonspecific ST abnormality Anterior leads Nonspecific T wave abnormality Lateral leads Abnormal ECG When compared with ECG of 05-MAY-2023 10:02, ST now depressed in Anterior leads Confirmed by Jhonatan Andrade ([id number]) on 05/27/2023 1:17:40 PM Referred By: REFERRED SELF Confirmed By:Jhonatan Andrade
--- NOTE | 2023-05-27 13:18 | Electrocardiogram Report ---
Test Reason : Blood Pressure : / mmHG Vent. Rate : 082 BPM Atrial Rate : 082 BPM P-R Int : 130 ms QRS Dur : 084 ms QT Int : 374 ms P-R-T Axes : -14 016 111 degrees QTc Int : 436 ms Normal sinus rhythm Nonspecific ST abnormality Anterior leads Nonspecific T wave abnormality Lateral leads Abnormal ECG When compared with ECG of 26-MAY-2023 19:20, No significant change was found Confirmed by Jhonatan Andrade ([id number]) on 05/27/2023 1:18:05 PM Referred By: REFERRED SELF Confirmed By:Jhonatan Andrade
--- NOTE | 2023-05-27 13:21 | Electrocardiogram Report ---
Test Reason : Blood Pressure : / mmHG Vent. Rate : 092 BPM Atrial Rate : 092 BPM P-R Int : 184 ms QRS Dur : 084 ms QT Int : 366 ms P-R-T Axes : 072 023 090 degrees QTc Int : 452 ms Normal sinus rhythm Nonspecific ST abnormality Anterior leads Nonspecific T wave abnormality Lateral leads Abnormal ECG When compared with ECG of 26-MAY-2023 20:02, No significant change Confirmed by Jhonatan Andrade ([id number]) on 05/27/2023 1:21:44 PM Referred By: REFERRED SELF Confirmed By:Jhonatan Andrade
--- NOTE | 2023-05-27 13:44 | XCELERA ---
[id number] \\[id number]
[2023-05-27] MEDS ORDERED: MELATONIN 3 MG TAB PO PRN (19:21)
[2023-05-27] MEDS: LORazepam 0.5 MG TAB PO PRN (20:26)
[2023-05-27] MEDS: cloNIDine HCL 0.1 MG TAB PO SCH (20:26)
[2023-05-27] MEDS: NYSTATIN CR 15 GM TUBE EXT SCH (20:30)
[2023-05-27] MEDS ORDERED: ENOXAPARIN INJ 40 MG/0.4 ML SYR SQ SCH (21:00)
[2023-05-27] MEDS ORDERED: ATORVASTATIN 40 MG TAB PO SCH (21:00)
[2023-05-27] MEDS: SUCRALFATE 1 GM TAB PO SCH (21:39)
[2023-05-27] MEDS ORDERED: ALBUT/IPRATROP 3MG/0.5MG NEB 3 ML VIAL NEB PRN (23:13)
[2023-05-28] MEDS: MoRPHine SULFATE 2 MG/ML CARP IV PRN ×2 (03:04→08:59)
[2023-05-28] MEDS ORDERED: METOPROLOL TARTRATE 1 MG/ML VIAL IV STA (03:25)
[2023-05-28] MEDS ORDERED: cloNIDine HCL 0.1 MG TAB PO ONE (03:28)
[2023-05-28] MEDS ORDERED: NICOTINE POLACRILEX 2 MG GUM MT PRN (03:28)
[2023-05-28] MEDS: LORazepam 0.5 MG TAB PO PRN (03:39)
[2023-05-28] MEDS: HYDROcodone/ACETAMINOPHEN 10/325 TAB PO PRN ×2 (03:39→11:53)
[2023-05-28] MEDS: LEVOTHYROXINE SODIUM 50 MCG TABLET PO SCH (05:44)
--- NOTE | 2023-05-28 06:38 | Hospitalist Progress Note ---
Date of Service May 28, 2023 Assessment & Plan (1) Chest pain: (2) COPD (chronic obstructive pulmonary disease): (3) Coronary artery disease: (4) HTN (hypertension), benign: (5) Hypothyroid: (6) Mass of lower lobe of left lung: Plan Sanjuanita Santos is a 63yo female with history of CAD, COPD, HTN, HLP, Hypothyroidism and prior TIA presenting with episodes of left shoulder pain/chest pain and neck pain. #Elevated troponin - EKG without dynamic changes; Mildly elevated troponin: 18 -->24-->27-->43 - Echocardiogram ordered, no regional wall motion abnormalities noted, significant for grade 1 diastolic dysfunction, mild to moderate aortic stenosis - Cardiology consulted, recommend: - Given extensive cardiac history - Consider nuclear imaging study #Chest Pain - Given extensive work up without significant findings, it is unlikely that chest pain is of cardiac etiology, more likely to be GI or anxiety related - PPi therapy, start Pantoprazole 40mg daily #CAD - Continue ASA and Plavix - Continue Atorvastatin - Continue Carvedilol #Consolidation/mass of left lower lobe of lung: - CXR: Redemonstration of 4.0 x 1.9 cm left lower lobe mass. This is highly suspicious for a neoplasm. Follow-up nonemergent pulmonary consultation recommended for further evaluation - Recommend follow up in the outpatient setting #COPD - DuoNeb scheduled - Albuterol prn - Continue Trelegy - Mucinex BID #HTN - Continue Metoprolol - given labile blood pressure with hypertensive predominance, start Clonidine 0.1mg BID with additional dosing as needed #Hypothyroidism: - Continue Synthroid #Fibromyalgia -On lyrica #Anxiety -On prn lorazepam at home. -Considering all the stress she is under - recent son , terminally ill - Discussed adding SSRI - will start lexapro in am Diet: HH VTE ppx: Lovenox Admission and Anticipated Discharge Date Admission Date: May 26, 2023 Subjective Sanjuanita Santos is a 63yo female with history of CAD, COPD, HTN, HLP, Hypothyroidism and prior TIA presenting with episodes of left shoulder pain/chest pain and neck pain. Patient evaluated at bedside, appears to be in mild discomfort. States that chest pain is much better but she still feels a baseline level of discomfort. Also endorses mild nausea, denies vomiting. Denies SOB. Physical Exam Constitutional: WD/WN, vitals as above + acute distress Neck: trachea midline, no thyromegaly Skin: no rashes, warm and dry Psychiatric: A+Ox3, euthymic affect Results & Data Results & Data Vital Signs (Past 12 Hours) Vital Signs Temp Pulse Pulse Resp BP Pulse Ox O2 Del Method 05/28/23 05:25 179/96 H 05/28/23 02:55 36.9 C 91 H 20 211/98 H 93 Room Air 05/27/23 22:59 62 05/27/23 22:45 36.7 C 106 H 20 148/90 H 88 L Room Air 05/27/23 21:17 Room Air 05/27/23 19:22 36.9 C 78 22 173/98 H 97 Room Air (1) Chest pain Chest pain type: unspecified Qualified Code(s): R07.9 - Chest pain, unspecified
[2023-05-28 06:45] LABS: Hematocrit (blood only) 40.7 % (37.0-47.0); Hemoglobin 13.9 g/dl (12.0-16.0); Mean Corpuscular Hemoglobin 30.2 pg (25.0-34.0); Mean Corpuscular Hgb Conc 34.2 g/dL (32.0-36.0); Mean Corpuscular Volume 88.5 fL (80.0-100.0); Mean Platelet Volume 11.1 fL (9.4-12.4); Platelet Count 193 K/uL (130-400); RDW Coefficient of Variation 12.4 % (11.5-14.5); RDW Standard Deviation 40.2 fL (36.4-46.3); White Blood Count 5.76 K/ul (4.8-10.8)
[2023-05-28 07:05] LABS: BUN Creatinine Ratio 19.8 (10-20); Calcium 9.3 mg/dl (8.6-10.3); Creatinine Clr Calc Pharmacy 89.5 ml/min; Est GFR (Non-African American) 76.8 ml/min; Potassium 4.2 mmol/L (3.5-5.1)
[2023-05-28 07:09] LABS: Partial Thromboplastin Time 28.1 Seconds (21.0-31.0)
[2023-05-28] MEDS: SUCRALFATE 1 GM TAB PO SCH ×2 (08:52→11:49)
[2023-05-28] MEDS: cloNIDine HCL 0.1 MG TAB PO SCH (08:53)
[2023-05-28] MEDS: guaiFENesin 600 MG TABCR PO SCH (08:53)
[2023-05-28] MEDS: ASPIRIN 81 MG ECTAB PO SCH (08:53)
[2023-05-28] MEDS: carvediloL 25 MG TAB PO SCH (08:53)
[2023-05-28] MEDS: CLOPIDOGREL BISULFATE 75 MG TAB PO SCH (08:54)
[2023-05-28] MEDS: FLUTICASONE/VILANTEROL 100/25MCG 14 PUFFS/INHALER INH SCH (08:55)
[2023-05-28] MEDS: NYSTATIN CR 15 GM TUBE EXT SCH (08:55)
[2023-05-28] MEDS: ACETAMINOPHEN 325 MG TAB PO PRN (08:59)
[2023-05-28] MEDS: PREGABALIN 150 MG CAP PO SCH ×2 (08:59→13:16)
[2023-05-28] MEDS ORDERED: ESCITALOPRAM OXALATE 10 MG TAB PO SCH (09:00)
[2023-05-28] MEDS ORDERED: PANTOprazole 40 MG TAB PO SCH ×2 (09:00)
[2023-05-28] MEDS ORDERED: ADVANCED PROBIOTIC 1250 MG CAPSULE PO SCH (11:00)
--- NOTE | 2023-05-28 11:45 | Cardiology Progress Note ---
Date of Service May 28, 2023 Assessment & Plan (1) Chest pain: (2) Reflux esophagitis: (3) Labile hypertension: (4) Coronary artery disease: (5) S/P coronary artery stent placement: (6) COPD (chronic obstructive pulmonary disease): (7) Smoker: Plan 1. Chest pain: She has had no further chest discomfort since admission. This is possibly anginal and probably should be investigated but probably can as an outpatient. 2. Coronary disease: She has known coronary disease with stent placement in the past. It is certainly possible she has had progression of disease and even a catheterization may be misleading because she could have progressed and without ischemia. I think a stress test is the best option, I would anticipate scheduling a nuclear stress test as an outpatient. She would like to go home rather than having that done here. I would continue platelet inhibition. 3. Hypertension: Her blood pressure remains elevated although quite labile. She will likely need her blood pressure medications adjusted but we can do this further as an outpatient. Admission and Anticipated Discharge Date Admission Date: May 26, 2023 Subjective She has not had recurrence of her chest discomfort after admission. She tells me that the symptoms prior to admission are identical to what she experienced in the past. Physical Exam Physical Exam: Constitutional: Alert, cooperative and in no distress. Pulmonary: Clear to auscultation bilaterally. Cardiac: Regular rhythm with a grade 2/6 crescendo decrescendo murmur at the base, no gallop or rub. Abdomen: Soft, nontender with normal bowel sounds. Extremities: No edema. Skin: No rash, ecchymoses or petechiae. Results & Data Vital Signs (Past 12 Hours) Vital Signs Temp Pulse Pulse Resp BP Pulse Ox O2 Del Method 05/28/23 08:00 78 05/28/23 08:00 Room Air 05/28/23 07:58 36.8 C 100 H 20 141/109 H 94 Room Air 05/28/23 05:25 179/96 H 05/28/23 02:55 36.9 C 91 H 20 211/98 H 93 Room Air Laboratory Results Cardiac Enzymes 05/27/23 Range/Units 18:18 Troponin I High Sens 44.2 H (0-14) pg/ml Coagulation 05/28/23 Range/Units 05:36 APTT 28.1 (21.0-31.0) Seconds CBC 05/28/23 Range/Units 05:36 WBC 5.76 (4.8-10.8) K/ul RBC 4.60 (4.20-5.40) M/uL Hgb 13.9 (12.0-16.0) g/dl Hct 40.7 (37.0-47.0) % Plt Count 193 (130-400) K/uL Comprehensive Metabolic Panel 05/28/23 Range/Units 05:36 Sodium 132 L (136-145) mmol/L Potassium 4.2 (3.5-5.1) mmol/L Chloride 97 L (98-107) mmol/L Carbon Dioxide 28 (21-32) mmol/L BUN 16 (6-23) mg/dl Creatinine 0.81 (0.6-1.2) mg/dl Glucose 272 H (70-99(Fasting)) mg/dl Calcium 9.3 (8.6-10.3) mg/dl Intake and Output 05/27/23 05/28/23 05/28/23 22:59 06:59 14:59 Intake Total 500 / 750 250 / 750 Balance 500 / 750 250 / 750 Intake: Oral 500 / 750 250 / 750 Other: # Unmeasured Voids 3 2 Weight 106.2 kg Weight Measurement Method Built in [facility] Diagnostic Findings Telemetry: Sinus rhythm with PVCs PG Care Time/CCT Total # of Minutes Spent Total Time Spent with Patient: Total time spent is greater than 50% in coordination of care (as documented) at patient's floor/unit and/or counseling patient: Coding Level of Care Code 08305 SUB INP/OBS CARE 2/35MIN Diagnoses Chest pain R07.9 Chest pain type: unspecified Reflux esophagitis K21.00 Labile hypertension R09.89 Coronary artery disease I25.10 S/P coronary artery stent placement Z95.5 COPD (chronic obstructive pulmonary disease) J44.9 Smoker F17.200 (1) Chest pain Chest pain type: unspecified Qualified Code(s): R07.9 - Chest pain, unspecified
--- NOTE | 2023-05-28 14:41 | Discharge Summary ---
Date of Service May 28, 2023 Admission HPI Per Admitting Provider Sanjuanita Santos is a 63yo female with history of COPD, HTN, HLP, Hypothyroidism and prior TIA presenting with episodes of left shoulder pain/chest pain and neck pain. Patient began having episodes of pain 3-4 days ago. They occur intermittently, last several minutes. Pain involves left face, shoulder, arm and chest. Pain 10/10 in severity, aching/stabbing in nature. She has associated nausea/vomiting as well as diaphoresis and SOB. Patient had an episode at 12:00 prior to arrival. She reports that her pain was very severe. She then had 5-6 additional episodes. She took Nitro and ASA with improvement in symptoms. She denies exacerbating factors. She reports the pain feels like when she needed a stent. Patient seen by her PCP on 05/17/23 with fatigue, congestion, cough and fever. She was started on Prednisone ER Course: Dilaudid 1mg Ativan 1mg Atorvastatin 25mg PO Lyrica 150mg PO Ativan 0.5mg po Morphine 2mg IV Zofran 4mg IV Ativan 0.5mg IV Admission Exam Per Admitting Provider General: patient resting comfortably, NAD, non-toxic in appearance, AA&O x 4 Skin: warm, dry, intact, no rashes or lesions HEENT: NC/AT, PERRL, EOMI, anicteric sclera, conjunctiva without injection, external ear normal to inspection and nontender, nares patent, moist mucus membranes, dentition intact, no oropharyngeal lesions, neck supple, trachea midline, no LAD, no thyromegaly, no JVD Heart: +S1/S2, regular, no m/r/g, chest wall pain reproducible Lungs: equal air entry bilaterally, diffuse inspiratory and expiratory wheezing Abd: +BS, soft, NT/ND, no masses/organomegaly/ascites Ext: warm, 2+ pulses in UE/LE bilaterally, no clubbing/cyanosis or edema Neuro: nonfocal, patient AA&O x 4, speech intact, no facial droop, moving all extremities on command with equal strength 5/5 Principal Diagnosis Chest pain Discharge Exam Constitutional WD/WN, vitals as above Respiratory good respiratory effort, with diminished breath sounds bilaterally, significant wheezes bilaterally Cardiovascular RRR, mild systolic ejection murmur Skin no rashes, warm and dry Psychiatric A+Ox3, euthymic affect Discharge Data Allergies Allergy/AdvReac Type Severity Reaction Status Date / Time Influenza Virus Vaccines AdvReac Unknown developed Verified 05/26/23 22:22 blood clots vaccine adjuvant system, AdvReac blood clots Verified 05/26/23 22:23 AS01B liposomal [From Shingrix (PF)] varicella-zoster virus AdvReac blood clots Verified 05/26/23 22:23 glycoprotein E, recombinant [From Shingrix (PF)] Consultations 05/27/23 00:51 Consult Cardiology Routine Ordered Studies 05/26/23 19:19 CT angio abdomen pelvis w con Stat CT angio chest dissec wo/w con Stat Hospital Course (1) Chest pain: (2) COPD (chronic obstructive pulmonary disease): (3) Coronary artery disease: (4) HTN (hypertension), benign: (5) Hypothyroid: (6) Mass of lower lobe of left lung: Plan Sanjuanita Santos is a 63yo female with history of CAD, COPD, HTN, HLP, Hypothyroidism and prior TIA who presented with episodes of left shoulder pain/chest pain and neck pain. #Elevated troponin - EKGs were without dynamic changes; Mildly elevated troponin: 18 -->24-->27-->43 - Echocardiogram demonstrated no regional wall motion abnormalities, was significant for grade 1 diastolic dysfunction, mild to moderate aortic stenosis - Cardiology consulted, recommended: - Given extensive cardiac history, could consider nuclear imaging study in the outpatient setting if chest pain persists #Chest Pain - Given extensive work up (CTA chest, CTA A/P, Echo, CXR) without significant findings, chest pain unlikely of cardiac etiology, more likely to be GI or anxiety related - Recommend PPi therapy, started Pantoprazole 40mg daily, continue for 14 days following discharged #CAD - Continued ASA and Plavix - Continued Atorvastatin - Continued Carvedilol #Consolidation/mass of left lower lobe of lung: - CXR was significant for:Redemonstration of 4.0 x 1.9 cm left lower lobe mass. This is highly suspicious for a neoplasm. Follow-up nonemergent pulmonary consultation recommended for further evaluation - Recommend follow up in the outpatient setting #COPD - DuoNeb scheduled - Albuterol prn - Continued Trelegy - Mucinex BID #HTN - Continued Carvedilol - given labile blood pressure with hypertensive predominance, Clonidine .1mg BID was started as recommended by cardiology - Patient also discharged on Amlodipine 2.5 mg daily - Recommend continued titration of antihypertensive regimen in the outpatient setting #Hypothyroidism: - Continued Synthroid #Fibromyalgia -Lyrica continued #Anxiety -On prn lorazepam at home. -Considering all the stress she is under - recent son , terminally ill - Discussed adding SSRI - Lexapro started in hospital, patient discharged on Lexapro 10mg daily Total Time Total Time Spent Total Time Spent (In Minutes): see attending attestation Discharge Plan Discharge Items Patient Disposition: Home - Self-Care Reason For Visit: CHEST PAIN Discharge Diagnosis: chest pain Activity: As commented below Activity Comment: Activity as tolerated Non-emergency contact: Primary Care Provider and Sign Designer Call non-emergency contact if: you have any medication questions, your symptoms worsen and your pain is not controlled Follow-up/Referrals: Katarina Andre MD [Primary Care Provider] - 06/01/23 10:30 am (Your appointment is with Nenita LUCERO) Diet: Heart Healthy Addtl Attending Provider Instructions: You were admitted to the hospital for evaluation of chest pain. You underwent multiple tests that indicated that the cause of your chest pain is not due to a blocked vessel of the heart. You were also seen by cardiology. It seems that the chest pain that you are experiencing is likely due to a combination of acid reflux and anxiety. To help address these issues, you were started on new medications, listed below. A discharge summary will be sent to your primary care physician to ensure continuity of care. Please bring this discharge summary with you to your next office appointment so that your provider can review it at that time. Medications: Your medication list has been reviewed and reconciled upon discharge to ensure accuracy and continuity of care. An updated list of all your medications is included with your hospital discharge paperwork. Please review this list closely and make note of any changes to your medications. THe medications below have been sent to your pharmacy. - You were started on a medication called Pantoprazole, this medication helps reduce symptoms of acid reflux, which can sometimes cause the feeling of chest pain. Please take this medication once daily for 14 days. - We also recommend trial of a probiotic. This can be purchased over the counter. - You were also started on Lexapro (Escitalopram), this medication is to help with anxiety but may take several weeks before you notice any improvement. Please take 1 10mg tablet daily. - You were also started on Clonidine, a medication that helps to lower blood pressure but may also help reduce feelings of anxiety. Place take this medication twice daily, morning and evening. - You are also being discharged with another medication to help lower your blood pressure medication called Amlodipine. Please take one tablet daily. Follow up appointments: - Make a follow up appointment with your PCP within the next week. It is very important that you follow up with them shortly after discharge from the hospital. - Please follow up with you copy coordinator as soon as possible. They can help determine whether any additional studies should be done. - Keep all of your follow up appointments as already scheduled. If you cannot make an appointment, notify your provider. CONTACT YOUR PRIMARY CARE PROVIDER if you experience any of the following: - Lack of symptom improvement over time - Difficulty following your treatment plan - Difficulty taking any of your medications CALL 911 OR GO TO THE EMERGENCY DEPARTMENT if you experience any of the followin g: - Sudden, severe abdominal pain or nausea/vomiting - Severe chest pain or chest pain that radiates to your jaw or arm - Sudden, severe shortness of breath or difficulty breathing Pending Studies at Discharge: No Stand-Alone Forms: My [facility] ChannelAdvisor, Smoking Cessation Medications and DC Order Prescriptions: New clonidine HCl 0.1 mg Tablet 0.1 mg PO BID 30 Days Qty: 60 0RF pantoprazole 40 mg Tablet,Delayed Release (Dr/Ec) 40 mg PO QAM 14 Days Qty: 14 0RF escitalopram oxalate 10 mg Tablet 10 mg PO QAM 30 Days Qty: 30 0RF amlodipine 2.5 mg tablet 2.5 mg PO DAILY Qty: 30 0RF Continued ondansetron HCl 4 mg tablet 4 mg PO QID PRN (Reason: nausea and vomiting) Qty: 30 0RF clopidogrel [Plavix] 75 mg tablet 75 mg PO DAILY Qty: 90 1RF pregabalin [Lyrica] 150 mg capsule 150 mg PO TID Qty: 90 2RF metformin 500 mg tablet 500 mg PO BID Qty: 60 2RF hydrocodone-acetaminophen 10-325 mg tablet 1 tab PO Q8H PRN (Reason: pain) Qty: 90 0RF albuterol sulfate 90 mcg/actuation HFA aerosol inhaler 2 puff inhalation QID PRN (Reason: shortness of breath or wheezing) Qty: 6.7 0RF budesonide-formoterol [Symbicort] 80-4.5 mcg/actuation HFA aerosol inhaler 2 puff inhalation BID Qty: 10.2 3RF nitroglycerin 0.4 mg tablet, sublingual 0.4 mg sublingual Q5M PRN (Reason: chest pain) Qty: 30 4RF Rx Instructions: do not exceed 3 doses per episode. call 911 if ongoing chest pain. carvedilol 25 mg tablet 25 mg PO BID Qty: 60 5RF Rx Instructions: must administer with a meal/food furosemide 40 mg tablet 40 mg PO DAILY PRN (Reason: edema) Qty: 30 5RF levothyroxine [Synthroid] 50 mcg tablet 50 mcg PO DAILY aspirin [Adult Low Dose Aspirin] 81 mg tablet,delayed release (DR/EC) 81 mg PO DAILY prednisone 20 mg tablet 40 mg PO DAILY 5 Days Qty: 10 0RF Rx Instructions: Filled on 05/18/2023 for 5 days cholecalciferol (vitamin D3) [Vitamin D3] 25 mcg (1,000 unit) Tablet 25 mcg PO DAILY lorazepam [Ativan] 0.5 mg tablet 0.5 mg PO TID PRN (Reason: anxiety) levocetirizine [Xyzal] 5 mg tablet 5 mg PO DAILY PRN (Reason: allergies) atorvastatin 40 mg tablet 40 mg PO HS Rx Instructions: 40 mg PO at bedtime Discharge Orders: Discharge Order (Routine); Ordered 05/28/23 Ordered By: Cruzito Galaviz Admission Data Admit Date/Time: 05/26/23 21:51 Attending Provider: Angela Peetrson Admit Provider: Nasreen Claros Primary Care Provider: Katarina Andre Other Providers: Juan Luis Arrieta Other Interventions: Discharge Summary Assessment (RN) Last Done: 05/28/23 13:04 Supervising Physician Co-Signing Physician Notes Resident Physician Supervision Note: I independently interviewed and examined the patient and verified the franks history and physical, reviewed labs and image studies and agree with resident findings and care plan. Resident Activity Tracking Resident Involvement: Resident Care Provided Care Provided: Adult Hospital Medicine
== END 2023-05-28 13:50 | disposition home or self-care (01) | DRG 392 ==
LOC: ED 19:11 → EDINP 21:51 → SUATTDRO 21:51 → 2E 05-27 00:52

== ENCOUNTER 2023-10-22 05:36 | Inpatient (IN) ==
--- NOTE | 2023-09-28 10:05 | Anesthesiology Consultation ---
Date of Service September 28, 2023 Assessment & Plan (1) Encounter for pre-operative examination: Plan - check BSG, CBC with diff, BMP STAT am DOS. To anesthesiologist discretion if additional testing is needed DOS. - awaiting results of 09/30/23 stress test. Cardiology office notified of anesthesia request for results ELIZABETH per discussion with Dr. Phillip who advised formal cardiology clearance is not needed. - awaiting COVID test and anesthesiologist evaluation of patient am DOS per discussion with Dr. Johnson regarding recent, persistent illness. - pulmonology office visit 08/23/23 [place]: "...Abnormal chest CT with left lower lobe mass 4.7 cm x 2.1 cm, no previous CT of the chest to compare...In a patient who has significant smoking history as well as history of lung cancer in father possibility of cancer is high...I will order PET/CT to be done as soon as possible, based on the finding on the PET/CT will decide whether bronchoscopy with EBUS will be needed for diagnosis...Based on the spirometry which was done today I do not think patient will be a good candidate for surgery...COPD with emphysema Gold E I will add Spiriva to patient's regimen of Symbicort..." - cardiology office visit 06/18/23 [place]: "...Hospital evaluation was equivocal with modest troponin elevation (peak 43) and minor ECG changes, but poor correlation between her intermittent chest pain and hemodynamic stresses such as intermittent hypertension (BP range 100/60 mmHg to 221/136 mmHg). In the absence of definite ECG changes during chest pain and given her prior history of esophageal issues, she was started on pantoprazole but this was only continued for 2 weeks posthospitalization. She was also initiated on clonidine for her labile hypertension with good results. Since hospital discharge she noticed 2 episodes of chest discomfort lasting a couple of minutes and responding to sublingual nitroglycerin. I had recommended nuclear perfusion study but she was inadvertently scheduled for dobutamine stress echocardiogram. This was canceled since she has a history of Takotsubo cardiomyopathy and an adrenaline analog (dobutamine) could precipitate recurrent stress-induced cardiomyopathy...ongoing tobacco use and multiple prior percutaneous coronary interventions (at least 4 stents) who was recently hospitalized with severe chest pain and equivocal ECG/troponin findings. Etiology of her symptoms remains equivocal. In the absence of dynamic EKG changes and given past history of gastrointestinal issues and recent reflux type symptoms, would continue pantoprazole to address potential reflux/esophageal spasm component. However, the possibility of angina is not definitively excluded, will obtain nuclear myocardial perfusion study to better clarify any ischemic burden. Since nitrates seem helpful and would benefit both esophageal spasm and coronary artery disease, will initiate long- acting nitrates, isosorbide mononitrate 30 mg daily. Encouraged continued liberal use of sublingual nitroglycerin as well. Fortunately, clonidine seems to be working well for BP control. Continue aspirin and clopidogrel given history of prior stents. Cardiology follow-up 1 month..." - Per claims clerk on 09/28/23: Cough, vomiting, diarrhea, fatigue, myalgias and nausea onset 09/15. I contacted patient who states that she continues to experience nasal congestion, diarrhea and nausea; reports intermittent chest discomfort; denies increased shortness of breath. She was strongly encouraged to seek prompt medical evaluation in the ER or her PCP regarding risks of her symptoms especially duration of illness; additionally needing a COVID test given interval to procedure. She verbalized understanding. Johanny with OR pulmonology was made aware of upcoming stress test, persistent illness, and patient needing COVID test. Chart Review Chart Review: Pending: Refer to Additional Notes / Consult section and Patient NOT seen in Pre Admission Testing History Surgery Operation Date: 10/01/23 13:30 Proposed Procedures p Bronchoscopy - Yumiko Lilly MD, [facility] s Endobronchial Ultrasound - Yumiko Lilly MD, [facility] Height/Weight Height: 5 ft 7 in Weight: 104.326 kg Allergies Allergy/AdvReac Type Severity Reaction Status Date / Time latex Allergy Unknown skin Verified 09/28/23 09:30 itching Influenza Virus Vaccines AdvReac Unknown developed Verified 09/28/23 09:30 blood clots vaccine adjuvant system, AdvReac blood clots Verified 09/28/23 09:30 AS01B liposomal [From Shingrix (PF)] varicella-zoster virus AdvReac blood clots Verified 09/28/23 09:30 glycoprotein E, recombinant [From Shingrix (PF)] Medications Home Medications Medication Instructions Recorded Confirmed Last Taken aspirin 81 mg tablet,delayed 81 mg PO QAM 01/09/20 09/28/23 Unknown release (Adult Low Dose Aspirin) levothyroxine 50 mcg tablet 50 mcg PO QAM 01/09/20 09/28/23 Unknown (Synthroid) budesonide-formoterol HFA 80 2 puff inhalation BID #10.2 grams 01/13/23 09/28/23 Unknown mcg-4.5 mcg/actuation aerosol inhaler (Symbicort) nitroglycerin 0.4 mg sublingual 0.4 mg sublingual Q5M PRN chest 01/14/23 09/28/23 Unknown tablet pain #30 tabs metformin 500 mg tablet 500 mg PO BID #60 tabs 05/18/23 09/28/23 Unknown levocetirizine 5 mg tablet (Xyzal) 5 mg PO DAILY PRN allergies 05/26/23 09/28/23 Unknown Wheeled Walker #1 ea 06/16/23 08/20/23 Unknown clonidine HCl 0.1 mg tablet 0.1 mg PO BID #180 tabs 06/18/23 09/28/23 Unknown pantoprazole 40 mg tablet,delayed 40 mg PO QAM #90 tabs 06/18/23 09/28/23 Unknown release pregabalin 150 mg capsule (Lyrica) 150 mg PO TID #90 caps 07/15/23 09/28/23 Unknown atorvastatin 40 mg tablet 40 mg PO HS #90 tabs 07/23/23 09/28/23 Unknown lorazepam 0.5 mg tablet (Ativan) 0.5 mg PO TID PRN anxiety #60 tabs 08/10/23 09/28/23 Unknown albuterol sulfate 90 mcg/actuation 2 puff inhalation QID PRN 08/23/23 09/28/23 Unknown aerosol inhaler shortness of breath or wheezing #6.7 grams tiotropium bromide 2.5 2 puff inhalation DAILY #4 grams 08/23/23 09/28/23 Unknown mcg/actuation mist for inhalation (Spiriva Respimat) amlodipine 2.5 mg tablet 2.5 mg PO QAM 09/17/23 09/28/23 Unknown carvedilol phosphate 40 mg 40 mg PO BID 09/17/23 09/28/23 Unknown capsule,[id number] multiphase (Coreg CR) clopidogrel 75 mg tablet (Plavix) 75 mg PO QAM 09/17/23 09/28/23 Unknown diphenhydramine HCl 25 mg capsule 25 mg PO HS PRN Allergy Symptoms 09/17/23 09/28/23 Unknown (Benadryl) furosemide 40 mg tablet 40 mg PO QAM PRN edema 09/17/23 09/28/23 Unknown nicotine 1 patch transdermal DAILY 09/17/23 09/28/23 Unknown 21mg/24hr-14mg/24hr-7mg/24hr daily transderm patches,sequentl oxycodone 10 mg tablet 10 mg PO TID PRN Pain 09/17/23 09/28/23 Unknown Past Medical History Medical History (Updated 09/28/23 @ 10:39 by Tahira Pulliam PA-C) Aneurysmal dilatation AAA, 3.4 cm Anxiety Aortic stenosis mild to moderate on 05/2023 echo (DAVIS 1.0 cm2, mean PG 15 mmHg) COPD (chronic obstructive pulmonary disease) Coronary artery disease s/p 5 stents, last in 2018 CVD (cardiovascular disease) Diabetes mellitus, type 2 History of COVID-19 07/2023 History of myocardial infarction x 5 History of TIA (transient ischemic attack) 2018, no deficits Hx of deep venous thrombosis years ago Hypertensive urgency Hypotension still occurring occasionally Hypothyroid Lumbar disc herniation Onychomycosis Peripheral neuropathy bilateral legs Takotsubo cardiomyopathy history of Takotsubo cardiomyopathy per [place] [facility] Past Family History Family History Mother Myocardial infarction Daughter Myocardial infarction Denies family history of Ovarian cancer Prostate cancer Breast cancer Colorectal cancer Past Surgical History Surgical History History of cardiac cath x 5 stents,between 2014- 2017, done in [place] History of section History of cholecystectomy History of coronary artery stent placement Social History Smoking Status: Current every day smoker Smoking cigarettes per day: 1 pack per day x 48 years- advised Do You Dip or Chew Tobacco: No Hx Alcohol Use: No Hx Substance Use: No substance use type: does not use Testing Electrocardiogram Date: 05/27/23 NSR, rate [address] abnormality anterior leads Nonspecific T wave abnormality lateral leads Chest X-Ray Date: 05/26/23 *1view* 1. Redemonstration of 4.0 x 1.9 cm left lower lobe mass. This is highly suspicious for a neoplasm. Follow-up nonemergent pulmonary consultation recommended for further evaluation. 2. This report was called/faxed to emergency department following dictation. Echocardiogram Date: 05/27/23 EF 55-60% No LV regional wall motion abnormalities Moderate cLVH Grade I diastolic dysfunction Mild to moderate aortic stenosis (DAVIS 1.0 cm2, mean PG 15 mmHg) Pulmonary Function Test Date: 08/23/23 Spirometry 08/23/2023: Severe obstructive lung dysfunction FVC 1.61 L 44%, FEV1 0.97 L 35%, FEV1/FVC 60% Other Testing PET scan 09/09/23 1. There is an approximately 7 cm markedly FDG avid left lower lobe lung mass. A pulmonary neoplasm is the diagnosis of exclusion. 2. Airspace consolidation at the left lung base is new from 05/26/2023 and like represents a postobstructive pneumonitis. Attention at follow-up is recommended. 3. There is an additional 9 mm FDG avid left apical pulmonary nodule. This was also seen on 05/26/2023, and could represent a pulmonary metastasis versus a second primary. 4. No FDG avid mediastinal or right hilar lymphadenopathy is identified. The left lower lobe lesion abuts the left hilum. 5. There is no evidence of FDG avid extrathoracic metastatic disease. 6. Emphysema. 7. There is markedly asymmetric cortical atrophy of the left kidney as compared to the right. 8. Additional findings as above. Chest CTA 05/26/23 1. No pulmonary embolus identified. 2. Focal consolidation in the left lower lobe may represent pneumonia. Nonspecific mass cannot be excluded. Follow-up exam could be performed to reevaluate. 3. Atherosclerotic changes of the aorta. No aortic aneurysm or dissection. 4. Emphysematous changes. Abdomen pelvis CTA 05/26/23 1. Hepatic steatosis. Hepatomegaly. 2. Splenomegaly. 3. Atherosclerotic changes of the vasculature. Mild aneurysmal dilatation of the abdominal aorta, measuring approximately 3.4 cm in diameter. No aortic dissection.
[2023-10-22 06:12] LABS: BUN Creatinine Ratio 14.1 (10-20); Creatinine Clr Calc Pharmacy 90.5 ml/min; Est GFR (African American) 93.1 ml/min; Est GFR (Non-African American) 80.3 ml/min; Potassium 4.4 mmol/L (3.5-5.1)
[2023-10-22] MEDS: LACTATED RINGER'S 1,000 ML IV SCH (06:43)
--- NOTE | 2023-10-22 07:31 | Communication Note ---
Date of Service: October 22, 2023 Patient with new onset chest congestion over past 3-4 days w/ significant SOB. B/L course BS w/ crackles at bases and I&E wheezes. Discussed w/ Dr Lilly, he agrees to cancel case and admit pt. for optimizing. 12 lead EKG obtained, pt w/ new onset Atrial fibrillation.
--- NOTE | 2023-10-22 08:12 | Pulmonary Consultation ---
Date of Consultation October 22, 2023 Assessment & Plan (1) Acute and chronic respiratory failure: (2) Atrial fibrillation: (3) Abnormal chest CT: (4) Pulmonary mass: (5) Obesity: (6) Smoker: (7) COPD (chronic obstructive pulmonary disease): Plan CT chest 05/26/2023 personally reviewed: Centrilobular emphysema appreciated bilaterally Left upper lobe pulmonary nodule 10 mm Left lower lobe opacity 4.7 cm x 2.1 cm No significant mediastinal lymphadenopathy 2D echo 05/27/2023: EF 55-60%, moderate concentric LVH, grade 1 diastolic dysfunction, mild to moderate aortic stenosis PFT 10/13/2023 personally reviewed: Moderate severe obstruction, insignificant bronchodilator response, lung volumes are not accurate, moderate decrease in DLCO FVC 1.65 L 46%, FEV1 1.15 L 42%, FEV1/FVC 70%, DLCO 59% -- Acute hypoxic respiratory failure COPD with emphysema Gold E On Symbicort and Spiriva at home. Patient is not using Spiriva on a daily basis Absolute eosinophil count 110 on 05/26/2023 -- Abnormal chest CT with left lower lobe mass 4.7 cm x 2.1 cm, no previous CT of the chest to compare The mass was PET positive We have been trying to schedule EBUS for approximately 4 weeks but it keeps getting delayed as patient has not been feeling well. Patient did have a chest x-ray done back in January which showed a left sided opacity and seems to be increasing in size In a patient who has significant smoking history as well as history of lung cancer in father possibility of cancer is high -- Current smoker >60 pack-year smoking history, currently smoking a pack a day -- Obesity Advised to lose weight diet and exercise --History of lung cancer in father who was a smoker --New onset A-fib Plan: Consent for the procedure has been obtained but it will be postponed probable to Wednesday if the patient's clinical status improves Treat the patient for COPD exacerbation, O2 supplementation to keep oxygen saturation between 90 to 92% BiPAP nightly and as needed shortness of breath Heparin drip. TSH to be done now. Cardiology has been consulted For hypertensive urgency continue with home blood pressure medications and reevaluate Case was discussed with patient's at bedside Sign-out was given to Dr. Adams Please note the above document was generated using voice recognition software. It may contain grammatical, syntax or spelling errors.Any formal questions or concerns about the content, text or information contained within the body of this dictation should be directly addressed to the provider for clarification. History of Present Illness Attending Physician: Yumiko Lilly MD, [facility] History of Present Illness 63-year-old female came to the hospital for EBUS but unfortunately was found to be hypertensive, new onset A-fib and actively wheezing short of breath Past medical history: Hypertension, hypothyroidism, diabetes, GERD Plan was made to get the patient admitted and optimized as we had been rescheduling her procedure for almost 4 weeks now. Patient had a CT chest done on 05/26/2023 and was asked to follow-up with pulmonary as soon as possible but unfortunately there was demise of her son and she was not able to Come to a previous appointment Patient's was also in the room at the time of examination At the time of examination patient systolic blood pressure was in the 190ssystolic in the 110s. She did not take her blood pressure medication today She stated that she has been having issues with coughing and shortness of breath going on since last couple of days. When she had the nuclear stress done she was complaining of shortness of breath. Cough is mostly dry when she does bring up phlegm is clear. No hemoptysis. No fever or chills No headache, no blurry vision No nausea or vomiting right now No night sweats, no unintentional weight loss Social history:>60 pack-year smoking history, currently smoking a pack a day, no alcohol, denies any illicit drug use. 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 Pets: None. No birds or poultry nearby Allergies: Seasonal Asthma: No personal or family history of asthma Lung cancer: History of lung cancer in father who was a smoker Allergies Allergy/AdvReac Type Severity Reaction Status Date / Time latex Allergy Unknown skin Verified 10/22/23 06:03 itching Influenza Virus Vaccines AdvReac Unknown developed Verified 10/22/23 06:03 blood clots vaccine adjuvant system, AdvReac blood clots Verified 10/22/23 06:03 AS01B liposomal [From Shingrix (PF)] varicella-zoster virus AdvReac blood clots Verified 10/22/23 06:03 glycoprotein E, recombinant [From Shingrix (PF)] Home Medications Medication Instructions Recorded Confirmed Type aspirin 81 mg tablet,delayed 81 mg PO QAM 01/09/20 10/22/23 History release (Adult Low Dose Aspirin) levothyroxine 50 mcg tablet 50 mcg PO QAM 01/09/20 10/22/23 History (Synthroid) budesonide-formoterol HFA 80 2 puff inhalation BID #10.2 grams 01/13/23 10/22/23 Rx mcg-4.5 mcg/actuation aerosol inhaler (Symbicort) nitroglycerin 0.4 mg sublingual 0.4 mg sublingual Q5M PRN chest 01/14/23 10/22/23 Rx tablet pain #30 tabs metformin 500 mg tablet 500 mg PO BID #60 tabs 05/18/23 10/22/23 Rx levocetirizine 5 mg tablet (Xyzal) 5 mg PO DAILY PRN allergies 05/26/23 10/22/23 History Wheeled Walker #1 ea 06/16/23 08/20/23 Rx clonidine HCl 0.1 mg tablet 0.1 mg PO BID #180 tabs 06/18/23 10/22/23 Rx pantoprazole 40 mg tablet,delayed 40 mg PO QAM #90 tabs 06/18/23 10/22/23 Rx release atorvastatin 40 mg tablet 40 mg PO HS #90 tabs 07/23/23 10/22/23 Rx lorazepam 0.5 mg tablet (Ativan) 0.5 mg PO TID PRN anxiety #60 tabs 08/10/23 10/22/23 Rx albuterol sulfate 90 mcg/actuation 2 puff inhalation QID PRN 08/23/23 10/22/23 Rx aerosol inhaler shortness of breath or wheezing #6.7 grams tiotropium bromide 2.5 2 puff inhalation DAILY #4 grams 08/23/23 10/22/23 Rx mcg/actuation mist for inhalation (Spiriva Respimat) amlodipine 2.5 mg tablet 2.5 mg PO QAM 09/17/23 10/22/23 History carvedilol phosphate 40 mg 40 mg PO BID 09/17/23 10/22/23 History capsule,[id number] multiphase (Coreg CR) clopidogrel 75 mg tablet (Plavix) 75 mg PO QAM 09/17/23 10/22/23 History diphenhydramine HCl 25 mg capsule 25 mg PO HS PRN Allergy Symptoms 09/17/23 10/22/23 History (Benadryl) furosemide 40 mg tablet 40 mg PO QAM PRN edema 09/17/23 10/22/23 History nicotine 1 patch transdermal DAILY 09/17/23 10/22/23 History 21mg/24hr-14mg/24hr-7mg/24hr daily transderm patches,sequentl azithromycin 250 mg tablet See Rx Instructions PO .COMPLEX #6 09/28/23 10/22/23 Rx tabs pregabalin 150 mg capsule (Lyrica) 150 mg PO TID #90 caps 10/01/23 10/22/23 Rx oxycodone 15 mg tablet 15 mg PO TID PRN pain #90 tabs 10/11/23 10/22/23 Rx Patient History Medical History (Updated 10/22/23 @ 13:29 by Yumiko Lilly MD, [facility]) Takotsubo cardiomyopathy history of Takotsubo cardiomyopathy per [place] [facility] Aortic stenosis mild to moderate on 05/2023 echo (DAVIS 1.0 cm2, mean PG 15 mmHg) Aneurysmal dilatation AAA, 3.4 cm History of COVID-19 07/2023 Lumbar disc herniation Peripheral neuropathy bilateral legs Diabetes mellitus, type 2 Hx of deep venous thrombosis years ago Anxiety Coronary artery disease s/p 5 stents, last in 2018 Onychomycosis Hypotension still occurring occasionally Hypertensive urgency Hypothyroid COPD (chronic obstructive pulmonary disease) CVD (cardiovascular disease) History of TIA (transient ischemic attack) 2018, no deficits History of myocardial infarction x 5 Surgical History History of cardiac cath x 5 stents,between 2014- 2017, done in [place] History of cholecystectomy History of section History of coronary artery stent placement Family History Mother Myocardial infarction Daughter Myocardial infarction Denies family history of Ovarian cancer Prostate cancer Breast cancer Colorectal cancer Social History Smoking Status: Current every day smoker Tobacco Type: Cigarettes Cigarettes Per Day: 1 pk; Smoking End Date: 10/22/23; Second Hand Exposure: Yes; Tobacco Cessation Education Requested by Patient: Yes Hx Alcohol Use: No Hx Substance Use: No Preferred Language: Amharic Communication Ability: Effective Metal Base Blocker Required: No Beliefs That Will Affect Care: None Current Living Situation: Spouse current occupational status: disabled Other Information That Helps Us Care for You: No Feels Safe at Home: Yes Safety Concerns: Feels Safe At This Time caffeine: Yes (Coffee) Dental Care, Regularly: No Physical Activity Frequency: Daily Physical Activity Frequency Comment: Daily housework/activites Seatbelt Use: always Sunscreen Use: No Assistive Devices: Nebulizer, Walker and Other Assistive Devices Comment: permanent upper plate Review of Systems 2 Review of Systems: All systems reviewed & are unremarkable except as noted in HPI & below Physical Exam 2 Physical Exam: Constitutional: No acute distress HEENT: EOMI, PERRLA Respiratory system: Decreased air entry bilaterally, no rhonchi, mild crackles bilaterally, positive expiratory wheeze bilaterally CVS: S1-S2 positive, no murmurs or gallops, irregular Abdomen: Soft, nontender, nondistended, positive bowel sounds x4 Extremities: +2 pulses bilaterally radialis/ dorsalis pedis, no cyanosis, minimal pitting edema bilateral lower extremity Neuro: Awake alert oriented x3 Psych: Normal mood and affect G/U: No [place] Skin: no rashes, warm and dry Lymphatic: no cervical or axillary lymphadenopathy Results & Data Results & Data Vital Signs (Past 12 Hours) Vital Signs Temp Pulse Resp BP BP BP Pulse Ox 10/22/23 06:25 185/115 H 181/140 H 195/110 H 10/22/23 06:20 98 H 24 186/117 H 95 10/22/23 06:17 10/22/23 06:17 36.7 C 91 H 24 195/110 H 95 O2 Del Method O2 Flow Rate 10/22/23 06:25 10/22/23 06:20 Room Air 10/22/23 06:17 Nasal Cannula 2 10/22/23 06:17 Room Air Laboratory Results 10/22/23 05:42 PG Care Time/CCT Total # of Minutes Spent Total Time Spent with Patient: Total time spent is greater than 50% in coordination of care (as documented) at patient's floor/unit and/or counseling patient: Coding Level of Care Code 70850 INT INP/OBS CARE 3/75MIN Diagnoses Acute and chronic respiratory failure J96.20 Atrial fibrillation I48.[address] R93.89 Pulmonary mass R91.8 Obesity E66.9 Smoker F17.200 COPD (chronic obstructive pulmonary disease) J44.9
[2023-10-22 08:40] LABS: Basophils # (auto) 0.04 K/uL (0.00-0.20); Basophils % (auto) 0.7 %; Eosinophils # (auto) 0.07 K/uL (0.00-0.50); Eosinophils % (auto) 1.2 %; Hematocrit (blood only) 41.6 % (37.0-47.0); Hemoglobin 13.2 g/dl (12.0-16.0); Immature Granulocytes # (auto) 0.04 K/uL (0.01-0.20); Immature Granulocytes % (auto) 0.7 %; Lymphocytes % (auto) 15.2 %; Mean Corpuscular Hemoglobin 27.6 pg (25.0-34.0); Mean Corpuscular Hgb Conc 31.7 g/dL (32.0-36.0); Mean Platelet Volume 9.3 fL (9.4-12.4); Monocytes # (auto) 0.43 K/uL (0.11-0.59); Monocytes % (auto) 7.3 %; Neutrophils # (auto) 4.45 K/uL (1.40-6.50); Neutrophils % (auto) 74.9 %; Platelet Count 343 K/uL (130-400); RDW Coefficient of Variation 14.5 % (11.5-14.5); RDW Standard Deviation 45.9 fL (36.4-46.3); Red Blood Count 4.78 M/uL (4.20-5.40); White Blood Count 5.93 K/ul (4.8-10.8)
[2023-10-22 08:42] LABS: Albumin Globulin Ratio 1.2 (0.9-2); Albumin Level 4.1 gm/dl (3.4-5.0); BUN Creatinine Ratio 16.7 (10-20); Bilirubin,Total 0.7 mg/dl (0.2-1.0); Calcium 9.7 mg/dl (8.6-10.3); Creatinine Clr Calc Pharmacy 101.1 ml/min; Est GFR (African American) 108.2 ml/min; Est GFR (Non-African American) 93.4 ml/min; Globulin 3.5 gm/dl (2.5-4.0); Potassium 4.3 mmol/L (3.5-5.1); Total Protein 7.6 gm/dl (6.0-8.3)
--- NOTE | 2023-10-22 08:47 | History & Physical Report ---
Date of Service October 22, 2023 Assessment & Plan (1) Uncontrolled hypertension: Plan: Patient presented for bronchoscopy found to have blood pressures markedly elevated. Medications include amlodipine carvedilol clonidinethis will be continued with adjustment of doses to control blood pressure (2) Atrial fibrillation: Plan: Concern for atrial fibrillation, rate not significantly elevated, laboratories are currently pending to check electrolytes, last TSH checked was May and in normal range Therapeutic anticoagulation with heparin therapy. Patient has a history of previous TIA Prehospital patient was on carvedilol we will continue that beta-brianna. If further rate control is needed consider diltiazem. Echocardiogram and cardiology consult pending Previous history of Takotsubo's cardiomyopathy in 2018, coronary artery disease with coronary artery stent placed x 4 Cardiac perfusion stress test performed 10/19/2023 showing possible very small area of apical ischemia Inferior inferoseptal fixed defects Ejection fraction 51% (3) Chronic respiratory failure: Plan: Patient follows with Dr. Lilly for COPD, Gold class E (severe) FEV1 0.97 L Symbicort and Spiriva as outpt acute exacerbation of COPD, given solu medrol, budesonide and formoterol nebs umeclidinium Current everyday smoker, 60+ pack year smoking history (4) Mass of lower lobe of left lung: Plan: Abnormal chest x-ray, and PET scan in the left lower lobe CT chest from May 31 shows a left lower lobe opacity 4.7 x 2.1 cm with no significant mediastinal lymphadenopathy Risk factor of lung cancer includes personal smoking and family history. Risk optimization possible bronchoscopy for diagnostic purposes. History of Present Illness Primary Care Provider: Katarina Andre MD 63-year-old female who came to the hospital for an outpatient bronchoscopy to be markedly hypertensive with new onset atrial fibrillation. Recent bronchoscopy was tried to diagnose a chest x-ray abnormality that is being followed in the left lower lobe, where mass was seen 4.7 x 2.1 cm. Patient has a significant smoking history and a family history of lung cancer. Patient has a history of COPD, history of Takotsubo's cardiomyopathy and mild aortic stenosis. She was admitted for control of blood pressure. She is given additional doses of oral medications. Her atrial fibrillation although new was rate controlled. She was instituted on heparin therapy. Allergies Allergy/AdvReac Type Severity Reaction Status Date / Time latex Allergy Unknown skin Verified 10/22/23 06:03 itching Influenza Virus Vaccines AdvReac Unknown developed Verified 10/22/23 06:03 blood clots vaccine adjuvant system, AdvReac blood clots Verified 10/22/23 06:03 [id number] liposomal [From Shingrix (PF)] varicella-zoster virus AdvReac blood clots Verified 10/22/23 06:03 glycoprotein E, recombinant [From Shingrix (PF)] Home Medications Medication Instructions Recorded Confirmed Type aspirin 81 mg tablet,delayed 81 mg PO QAM 01/09/20 10/22/23 History release (Adult Low Dose Aspirin) levothyroxine 50 mcg tablet 50 mcg PO QAM 01/09/20 10/22/23 History (Synthroid) budesonide-formoterol HFA 80 2 puff inhalation BID #10.2 grams 01/13/23 10/22/23 Rx mcg-4.5 mcg/actuation aerosol inhaler (Symbicort) nitroglycerin 0.4 mg sublingual 0.4 mg sublingual Q5M PRN chest 01/14/23 10/22/23 Rx tablet pain #30 tabs metformin 500 mg tablet 500 mg PO BID #60 tabs 05/18/23 10/22/23 Rx levocetirizine 5 mg tablet (Xyzal) 5 mg PO DAILY PRN allergies 05/26/23 10/22/23 History Wheeled Walker #1 ea 06/16/23 08/20/23 Rx clonidine HCl 0.1 mg tablet 0.1 mg PO BID #180 tabs 06/18/23 10/22/23 Rx pantoprazole 40 mg tablet,delayed 40 mg PO QAM #90 tabs 06/18/23 10/22/23 Rx release atorvastatin 40 mg tablet 40 mg PO HS #90 tabs 07/23/23 10/22/23 Rx lorazepam 0.5 mg tablet (Ativan) 0.5 mg PO TID PRN anxiety #60 tabs 08/10/23 10/22/23 Rx albuterol sulfate 90 mcg/actuation 2 puff inhalation QID PRN 08/23/23 10/22/23 Rx aerosol inhaler shortness of breath or wheezing #6.7 grams tiotropium bromide 2.5 2 puff inhalation DAILY #4 grams 08/23/23 10/22/23 Rx mcg/actuation mist for inhalation (Spiriva Respimat) amlodipine 2.5 mg tablet 2.5 mg PO QAM 09/17/23 10/22/23 History carvedilol phosphate 40 mg 40 mg PO BID 09/17/23 10/22/23 History capsule,[id number] multiphase (Coreg CR) clopidogrel 75 mg tablet (Plavix) 75 mg PO QAM 09/17/23 10/22/23 History diphenhydramine HCl 25 mg capsule 25 mg PO HS PRN Allergy Symptoms 09/17/23 10/22/23 History (Benadryl) furosemide 40 mg tablet 40 mg PO QAM PRN edema 09/17/23 10/22/23 History nicotine 1 patch transdermal DAILY 09/17/23 10/22/23 History 21mg/24hr-14mg/24hr-7mg/24hr daily transderm patches,sequentl azithromycin 250 mg tablet See Rx Instructions PO .COMPLEX #6 09/28/23 10/22/23 Rx tabs pregabalin 150 mg capsule (Lyrica) 150 mg PO TID #90 caps 10/01/23 10/22/23 Rx oxycodone 15 mg tablet 15 mg PO TID PRN pain #90 tabs 10/11/23 10/22/23 Rx Past Med/Surg History Medical History (Updated 10/22/23 @ 23:04 by Brian Lizama MD) Paroxysmal atrial fibrillation Takotsubo cardiomyopathy history of Takotsubo cardiomyopathy per [place] [facility] Aortic stenosis mild to moderate on 05/2023 echo (DAVIS 1.0 cm2, mean PG 15 mmHg) Aneurysmal dilatation AAA, 3.4 cm History of COVID-19 07/2023 Lumbar disc herniation Peripheral neuropathy bilateral legs Diabetes mellitus, type 2 Hx of deep venous thrombosis years ago Anxiety Coronary artery disease s/p 5 stents, last in 2018 Onychomycosis Hypotension still occurring occasionally Hypertensive urgency Hypothyroid COPD (chronic obstructive pulmonary disease) CVD (cardiovascular disease) History of TIA (transient ischemic attack) 2018, no deficits History of myocardial infarction x 5 Surgical History History of cardiac cath x 5 stents,between 2014- 2017, done in [place] History of cholecystectomy History of section History of coronary artery stent placement Family History Mother Myocardial infarction Daughter Myocardial infarction Denies family history of Ovarian cancer Prostate cancer Breast cancer Colorectal cancer Social History Smoking Status: Current every day smoker Tobacco Type: Cigarettes Cigarettes Per Day: 1 pk; Smoking End Date: 10/22/23; Second Hand Exposure: Yes; Tobacco Cessation Education Requested by Patient: Yes Hx Alcohol Use: No Hx Substance Use: No Preferred Language: Kinyarwanda Communication Ability: Effective Director Of Outside Sales Required: No Beliefs That Will Affect Care: None Current Living Situation: Spouse current occupational status: disabled Other Information That Helps Us Care for You: No Feels Safe at Home: Yes Safety Concerns: Feels Safe At This Time caffeine: Yes (Coffee) Dental Care, Regularly: No Physical Activity Frequency: Daily Physical Activity Frequency Comment: Daily housework/activites Seatbelt Use: always Sunscreen Use: No Assistive Devices: Nebulizer, Walker and Other Assistive Devices Comment: permanent upper plate Physical Exam Physical Exam: Pt seen after better rate control pulmonary exam much improved from intial description abd is soft and non tender ext with tr edema Results & Data Results & Data Vital Signs (Past 12 Hours) Vital Signs Temp Pulse Resp BP BP BP Pulse Ox 10/22/23 07:50 98.1 F 86 22 177/141 H 97 10/22/23 06:25 185/115 H 181/140 H 195/110 H 10/22/23 06:20 98 H 24 186/117 H 95 10/22/23 06:17 10/22/23 06:17 98.1 F 91 H 24 195/110 H 95 O2 Del Method O2 Flow Rate 10/22/23 07:50 Nasal Cannula 3 10/22/23 06:25 10/22/23 06:20 Room Air 10/22/23 06:17 Nasal Cannula 2 10/22/23 06:17 Room Air Code Status & VTE Plan VTE Prophylaxis Plan VTE Prophylaxis will be ordered: Yes PG Care Time/CCT Total # of Minutes Spent Total Time Spent with Patient: Total time spent is greater than 50% in coordination of care (as documented) at patient's floor/unit and/or counseling patient: Coding Level of Care Code 33357 INT INP/OBS CARE 3/75MIN Diagnoses Uncontrolled hypertension I10 Atrial fibrillation I48.91 Chronic respiratory failure J96.10 Mass of lower lobe of left lung R91.8
[2023-10-22] MEDS ORDERED: GLUCAGON FOR INJ 1 MG VIAL SQ PRN (08:50)
[2023-10-22] MEDS ORDERED: DEXTROSE 50% 50 ML SYRINGE IV PRN (08:50)
[2023-10-22] MEDS ORDERED: GLUCOSE 40% GEL 15 GM TUBE PO PRN (08:50)
[2023-10-22] MEDS ORDERED: GLUCOSE 10 TAB/TUBE PO PRN (08:50)
[2023-10-22] MEDS ORDERED: CARBOHYDRATES FOR HYPOGLYCEMIA PO PRN (08:50)
[2023-10-22 09:02] LABS: Magnesium 2.2 mg/dl (1.7-2.4)
[2023-10-22 09:17] LABS: Thyroid Stimulating Hormone 1.423 uIu/ml (0.300-4.500)
[2023-10-22] MEDS: PANTOprazole 40 MG TAB PO SCH (09:27)
[2023-10-22] MEDS: ASPIRIN 81 MG ECTAB PO SCH (09:28)
[2023-10-22] MEDS: SODIUM CHLORIDE 0.9% 1,000 ML IV SCH (09:31)
[2023-10-22] MEDS: hydrALAZINE HCL 20 MG/ML VIAL IV PRN (09:31)
[2023-10-22] MEDS: PREGABALIN 150 MG CAP PO SCH (09:31)
--- NOTE | 2023-10-22 09:37 | XRay Report ---
XR chest 1V portable HISTORY: 63 years-old Female f/u follow-up study in a patient with a left lung base mass COMPARISON: PET CT 09/09/2023 TECHNIQUE: AP view of the chest FINDINGS: Cardiomediastinal and hilar silhouettes are unchanged. Left infrahilar/left lower lobe mass redemonst rated which previously measured approximately 7 cm. Patchy left basilar airspace opacities. No pneumo thorax, pleural effusion or overt pulmonary edema. Bones appear grossly intact. IMPRESSION: Left infrahilar/left lower lobe mass redemonstrated with left basilar airspace opacities suggestive of postobstructive pneumonitis. ACT 112: Negative or not required by law. The above report was generated using voice recognition software. It may contain grammatical, syntax o r spelling errors. Electronically signed by: Garret Bowles M.D. 10/22/2023 9:35 AM
[2023-10-22] MEDS: ISOSORBIDE MONO EXTENDED REL 30 MG TABCR PO SCH (09:57)
[2023-10-22] MEDS: cloNIDine HCL 0.1 MG TAB PO SCH (09:57)
[2023-10-22] MEDS: LEVOTHYROXINE SODIUM 50 MCG TABLET PO SCH (09:57)
[2023-10-22] MEDS: HEPARIN SODIUM/DEXTROSE 25,000 UNITS/500 ML BAG IV SCH (10:00)
[2023-10-22] MEDS: oxyCODONE HCL IR 5 MG TAB (IMMEDIATE RELEASE) PO PRN (10:01)
[2023-10-22] MEDS: amLODIPine BESYLATE 5 MG TAB PO SCH (10:05)
[2023-10-22] MEDS: methylPREDNISolone 40 MG in SYRINGE 0 ML IV SCH (10:05)
[2023-10-22] MEDS: UMECLIDINIUM BROMIDE 62.5MCG/BLISTER 7 PUFFS/INHALER INH SCH (10:06)
[2023-10-22] MEDS: HEPARIN SOD (PORCINE) 1000 UNIT/ML IV ONE (10:33)
[2023-10-22 10:57] LABS: Partial Thromboplastin Ratio 1.2; Partial Thromboplastin Time 33 Seconds (21-31); Prothrombin Time 10.7 Seconds (9.0-12.0)
[2023-10-22] MEDS: Heparin IV Adult Wt-Based Standard w/ INITIAL Bolus Protocol IV STA (11:14)
[2023-10-22] MEDS: INSULIN ASPART PER UNIT CHARGE SC SCH (12:14)
--- NOTE | 2023-10-22 14:12 | Cardiology Consultation ---
Date of Consultation October 22, 2023 Assessment & Plan (1) Paroxysmal atrial fibrillation: (2) S/P coronary artery stent placement: (3) Coronary artery disease: (4) HTN (hypertension), benign: (5) Aortic stenosis: (6) Abnormal nuclear stress test: (7) Atypical chest pain: Plan ASSESSMENT/PLAN: 1. Paroxysmal atrial fibrillation: We discussed the diagnosis in detail. May be mildly symptomatic with some palpitations. Has been in sinus rhythm since admission but was in A-fib when presented for EBUS. Sinus rhythm earlier this week during nuclear stress. Recommend rate control strategy for now. If beta- brianna okay from a pulmonary standpoint, would continue carvedilol which she has taken and tolerated in the outpatient setting. Otherwise, can use oral diltiazem if needed. Continue anticoagulation for stroke risk reduction. 2. CAD s/p multiple PCI: Details of PCI not known. Has chronically been on aspirin and Plavix. With anticoagulation therapy on board, can discontinue Plavix from a cardiac standpoint. Continue aspirin 81 mg daily. Continue home beta-brianna if no contraindication. Continue high intensity statin therapy. Continue nitrate therapy. 3. Abnormal myocardial perfusion study: Possible very small area of apical ischemia. Her chest discomfort symptoms seem atypical and chronic. Continue nitrate therapy and can titrate if necessary. No urgent indication for cardiac catheterization. 4. Hypertension: Blood pressure has been elevated. Can continue amlodipine. Recommend resuming beta-brianna as above as she seems to have been tolerating it at home. Consider GUILHERME inhibitor or ARB if further blood pressure control necessary. 5. Dyslipidemia: Continue high intensity statin therapy. 6. Aortic stenosis: Nonsevere. Monitor as an outpatient for surveillance purposes. 7. Abdominal pain: As per primary service. 8. Disposition: Patient signed out to Dr. Cortés who will be on-call later this week and. Please call cardiology for any further questions or concerns. On discharge, follow-up with Dr. Andrade, her primary manager editorial. History of Present Illness Reason for Consultation: Atrial fibrillation Requesting Physician: Yumiko Lilly MD, [facility] Attending Physician: Yumiko Lilly MD, [facility] History of Present Illness Mrs. Santos is a pleasant 63-year-old female with a history significant for CAD s/p multiple PCI (4 or 5 in [id number]), Takotsubo cardiomyopathy 2018, TIA, chronic respiratory failure, COPD, pulmonary mass, recurrent DVT, aortic stenosis, hypertension, diabetes, hypothyroidism. Her primary manager editorial is Dr. Andrade. Between 2014 and 2017 while living in [place], she received 4 or 5 stents. Details of her PCI are not known at the time of this note. She has had chronic issues with chest discomfort and recently underwent myocardial perfusion study earlier this week as arranged by her primary manager editorial. It has been felt that perhaps her chest discomfort has been due to reflux or esophageal spasm when reviewing outpatient cardiology note. She was admitted on 10/22/2023 after presenting as an outpatient for EBUS to further investigate pulmonary mass which was PET positive. When evaluated prior to the procedure, she was noted to be wheezing and has been more short of breath in general for the past 5 to 6 days. She also has been experiencing right-sided abdominal pain. She has had increased cough with yellow sputum but no fevers. She has chronic orthopnea but no significant worsening in that regard. She has not noted any lower extremity edema. She continues to have intermittent substernal chest tightness lasting a few seconds up to 2 minutes. She takes nitroglycerin as needed with some relief. The chest discomfort has no specific trigger, occurring both with exertion and at rest. She was also noted to be in atrial fibrillation this morning and hypertensive. She had not taken her antihypertensive regimen this morning. Due to her respiratory issues and newly diagnosed A-fib, she was admitted for optimization in anticipation of pursuing EBUS after the weekend. She is being treated for COPD exacerbation. She has noted occasional palpitations recently over the past month. She has had recurrent DVT. The first was at the age of 17 after delivering her child. She had another 1 in her 40s and believes she may have had an accident prior to that. Review of systems: As above. Review of systems otherwise negative/unremarkable. Family history: Mother, father, brother all had CAD. Social history: She smokes a pack per day. She denies drug or alcohol abuse. She lives at home with her . She had 11 children, 6 biologic. 2 of her children have , most recently a son was murdered in 2022. She was unaccompanied. Allergies Allergy/AdvReac Type Severity Reaction Status Date / Time latex Allergy Unknown skin Verified 10/22/23 06:03 itching Influenza Virus Vaccines AdvReac Unknown developed Verified 10/22/23 06:03 blood clots vaccine adjuvant system, AdvReac blood clots Verified 10/22/23 06:03 AS01B liposomal [From [employer] (PF)] varicella-zoster virus AdvReac blood clots Verified 10/22/23 06:03 glycoprotein E, recombinant [From [employer] (PF)] Home Medications Medication Instructions Recorded Confirmed Type aspirin 81 mg tablet,delayed 81 mg PO QAM 01/09/20 10/22/23 History release (Adult Low Dose Aspirin) levothyroxine 50 mcg tablet 50 mcg PO QAM 01/09/20 10/22/23 History (Synthroid) budesonide-formoterol HFA 80 2 puff inhalation BID #10.2 grams 01/13/23 10/22/23 Rx mcg-4.5 mcg/actuation aerosol inhaler (Symbicort) nitroglycerin 0.4 mg sublingual 0.4 mg sublingual Q5M PRN chest 01/14/23 10/22/23 Rx tablet pain #30 tabs metformin 500 mg tablet 500 mg PO BID #60 tabs 05/18/23 10/22/23 Rx levocetirizine 5 mg tablet (Xyzal) 5 mg PO DAILY PRN allergies 05/26/23 10/22/23 History Wheeled Walker #1 ea 06/16/23 08/20/23 Rx clonidine HCl 0.1 mg tablet 0.1 mg PO BID #180 tabs 06/18/23 10/22/23 Rx pantoprazole 40 mg tablet,delayed 40 mg PO QAM #90 tabs 06/18/23 10/22/23 Rx release atorvastatin 40 mg tablet 40 mg PO HS #90 tabs 07/23/23 10/22/23 Rx lorazepam 0.5 mg tablet (Ativan) 0.5 mg PO TID PRN anxiety #60 tabs 08/10/23 10/22/23 Rx albuterol sulfate 90 mcg/actuation 2 puff inhalation QID PRN 08/23/23 10/22/23 Rx aerosol inhaler shortness of breath or wheezing #6.7 grams tiotropium bromide 2.5 2 puff inhalation DAILY #4 grams 08/23/23 10/22/23 Rx mcg/actuation mist for inhalation (Spiriva Respimat) amlodipine 2.5 mg tablet 2.5 mg PO QAM 09/17/23 10/22/23 History carvedilol phosphate 40 mg 40 mg PO BID 09/17/23 10/22/23 History capsule,[id number] multiphase (Coreg CR) clopidogrel 75 mg tablet (Plavix) 75 mg PO QAM 09/17/23 10/22/23 History diphenhydramine HCl 25 mg capsule 25 mg PO HS PRN Allergy Symptoms 09/17/23 10/22/23 History (Benadryl) furosemide 40 mg tablet 40 mg PO QAM PRN edema 09/17/23 10/22/23 History nicotine 1 patch transdermal DAILY 09/17/23 10/22/23 History 21mg/24hr-14mg/24hr-7mg/24hr daily transderm patches,sequentl azithromycin 250 mg tablet See Rx Instructions PO .COMPLEX #6 09/28/23 10/22/23 Rx tabs pregabalin 150 mg capsule (Lyrica) 150 mg PO TID #90 caps 10/01/23 10/22/23 Rx oxycodone 15 mg tablet 15 mg PO TID PRN pain #90 tabs 10/11/23 10/22/23 Rx Patient History Medical History (Updated 10/22/23 @ 23:04 by Brian Lizama MD) Paroxysmal atrial fibrillation Takotsubo cardiomyopathy history of Takotsubo cardiomyopathy per [facility] Aortic stenosis mild to moderate on 05/2023 echo (DAVIS 1.0 cm2, mean PG 15 mmHg) Aneurysmal dilatation AAA, 3.4 cm History of COVID-19 07/2023 Lumbar disc herniation Peripheral neuropathy bilateral legs Diabetes mellitus, type 2 Hx of deep venous thrombosis years ago Anxiety Coronary artery disease s/p 5 stents, last in 2018 Onychomycosis Hypotension still occurring occasionally Hypertensive urgency Hypothyroid COPD (chronic obstructive pulmonary disease) CVD (cardiovascular disease) History of TIA (transient ischemic attack) 2018, no deficits History of myocardial infarction x 5 Surgical History History of cardiac cath x 5 stents,between 2014- 2018, done in [place] History of cholecystectomy History of section History of coronary artery stent placement Family History Mother Myocardial infarction Daughter Myocardial infarction Denies family history of Ovarian cancer Prostate cancer Breast cancer Colorectal cancer Social History Smoking Status: Current every day smoker Tobacco Type: Cigarettes Cigarettes Per Day: 1 pk; Smoking End Date: 10/22/23; Second Hand Exposure: Yes; Tobacco Cessation Education Requested by Patient: Yes Hx Alcohol Use: No Hx Substance Use: No Preferred Language: Uzbek Communication Ability: Effective 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 Alert and oriented. HEENT: Anicteric sclera. Neck: No JVD. Cardiac: No ventricular heave. Regular. Normal S1-S2. 2/6 early peaking systolic ejection murmur. Pulmonary: Decreased breath sounds bilaterally with occasional wheezing and coarse breath sounds. Abdomen: Soft, nondistended, with normoactive bowel sounds. No bruits noted. Right abdominal tenderness. Extremities: 2+ radial pulses bilaterally. 2+ posterior tibialis pulses bilaterally. No edema or cyanosis. Results & Data Vital Signs (Past 12 Hours) Vital Signs Temp Pulse Pulse Pulse Resp BP BP 10/22/23 11:25 36.4 C L 87 22 10/22/23 10:00 170/103 H 10/22/23 09:05 138 H 10/22/23 09:03 10/22/23 09:01 36.4 C L 88 24 10/22/23 09:00 10/22/23 07:50 36.7 C 86 22 10/22/23 06:25 185/115 H 10/22/23 06:20 98 H 24 10/22/23 06:17 10/22/23 06:17 36.7 C 91 H 24 BP BP Pulse Ox O2 Del Method O2 Flow Rate 10/22/23 11:25 152/105 H 93 Nasal Cannula 2 10/22/23 10:00 10/22/23 09:05 10/22/23 09:03 187/112 H 10/22/23 09:01 207/110 H 97 Nasal Cannula 2 10/22/23 09:00 Nasal Cannula 2 10/22/23 07:50 177/141 H 97 Nasal Cannula 3 10/22/23 06:25 181/140 H 195/110 H 10/22/23 06:20 186/117 H 95 Room Air 10/22/23 06:17 Nasal Cannula 2 10/22/23 06:17 195/110 H 95 Room Air Intake & Output 10/20/23 10/21/23 10/22/23 10/23/23 06:59 06:59 06:59 06:59 Intake Total 1251.433 / 1251.433 Output Total 0 / 0 Balance 1251.433 / 1251.433 Weight 213 lb 13.574 oz 213 lb 13.574 oz Laboratory Results Laboratory Results - last 24 hr 10/22/23 10/22/23 10/22/23 05:42 05:57 08:12 WBC 5.93 RBC 4.78 Hgb 13.2 Hct 41.6 MCV 87.0 MCH 27.6 MCHC 31.7 L RDW Std Deviation 45.9 RDW Coeff of Chanel 14.5 Plt Count 343 MPV 9.3 L Immature Gran % (Auto) 0.7 Neut % (Auto) 74.9 Lymph % (Auto) 15.2 [place] % (Auto) 7.3 Eos % (Auto) 1.2 Baso % (Auto) 0.7 Neut # (Auto) 4.45 Lymph # (Auto) 0.90 L [place] # (Auto) 0.43 Eos # (Auto) 0.07 Baso # (Auto) 0.04 Immature Gran # (Auto) 0.04 PT INR APTT PTT Ratio Sodium 134 L 136 Potassium 4.4 4.3 Chloride 99 100 Carbon Dioxide 27 28 Anion Gap 8 8 BUN 11 11 Creatinine 0.78 0.66 Est Cr Clr Drug Dosing 90.5 101.1 Est GFR ( Amer) 93.1 108.2 Est GFR (Non-Af Amer) 80.3 93.4 BUN/Creatinine Ratio 14.1 16.7 Glucose 196 H 174 H POC Glucose 210 H Calcium 10.0 9.7 Magnesium 2.2 Total Bilirubin 0.7 AST 10 L ALT 10 Alkaline Phosphatase 90 B-Natriuretic Peptide 291 H Total Protein 7.6 Albumin 4.1 Globulin 3.5 Albumin/Globulin Ratio 1.2 Procalcitonin 0.28 TSH 1.423 Nasal Screen MRSA (PCR) 10/22/23 10/22/23 10/22/23 09:05 09:56 11:17 WBC RBC Hgb Hct MCV MCH MCHC RDW Std Deviation RDW Coeff of Chanel Plt Count MPV Immature Gran % (Auto) Neut % (Auto) Lymph % (Auto) [place] % (Auto) Eos % (Auto) Baso % (Auto) Neut # (Auto) Lymph # (Auto) [place] # (Auto) Eos # (Auto) Baso # (Auto) Immature Gran # (Auto) PT 10.7 INR 1.0 APTT 33 H PTT Ratio 1.2 Sodium Potassium Chloride Carbon Dioxide Anion Gap BUN Creatinine Est Cr Clr Drug Dosing Est GFR ( Amer) Est GFR (Non-Af Amer) BUN/Creatinine Ratio Glucose POC Glucose 168 H Calcium Magnesium Total Bilirubin AST ALT Alkaline Phosphatase B-Natriuretic Peptide Total Protein Albumin Globulin Albumin/Globulin Ratio Procalcitonin TSH Nasal Screen MRSA (PCR) Negative Diagnostic Findings Echo 10/22/2023: 1. Normal left ventricular size and systolic function. EF 55-60%. No regional wall motion abnormalities. Moderate concentric left ventricular hypertrophy. 2. Mild aortic stenosis. 3. Similar findings compared to prior study on 05/27/2023. ECG personally reviewed: ECG 10/22/2023 at 7:29 AM: A-fib RVR [address] abnormality. Suspect limb lead reversal. Repeat ECG personally ordered: ECG 10/22/2023 at 1434: Sinus rhythm 83 bpm. Telemetry personally reviewed: Sinus rhythm. No arrhythmia noted. Labs reviewed and notable for mildly elevated BNP, normal renal function, normal potassium, normal blood counts, nonelevated transaminase levels, normal TSH. Pulmonary consultation report reviewed. Chest x-ray 10/22/2023: Left infrahilar/left lower lobe mass with left basilar airspace opacities suggestive of postobstructive pneumonitis per radiology. Nuclear stress 10/19/2023: Possible very small area of apical ischemia. EF 51%. Normal wall motion. Sinus rhythm. Medications Administered Current Inpatient Medications Acetaminophen (Acetaminophen 325 Mg Tab) 650 mg PO Q4H PRN PRN Reason: Pain or Fever Stop: 11/21/23 07:44 Amlodipine Besylate (Amlodipine Besylate 5 Mg Tab) 5 mg PO QAM [facility] Stop: 11/21/23 08:09 Last Admin: 10/22/23 10:05 Dose: 5 mg Aspirin (Aspirin 81 Mg Ectab) 81 mg PO QAM [facility] Stop: 11/21/23 08:59 Last Admin: 10/22/23 09:28 Dose: 81 mg Atorvastatin Calcium (Atorvastatin 40 Mg Tab) 40 mg PO HS [facility] Stop: 11/21/23 20:59 Budesonide (Budesonide 0.5 Mg/2 Ml Vial (Pulmicort)) 0.5 mg NEB BIDR [facility] Stop: 11/21/23 18:59 Clonidine HCl (Clonidine Hcl 0.1 Mg Tab) 0.1 mg PO BID [facility] Stop: 11/21/23 08:59 Last Admin: 10/22/23 09:57 Dose: 0.1 mg Dextrose (Dextrose 50% 50 Ml Syringe) 25 - 50 ml IV UD PRN; Protocol PRN Reason: Hypoglycemia Protocol Stop: 11/21/23 08:49 Formoterol Fumarate (Formoterol 20 Mcg/2 Ml Vial) 20 mcg INH BIDR [facility] Stop: 11/21/23 18:59 Glucagon (Glucagon For Inj 1 Mg Vial) 1 mg SQ UD PRN; Protocol PRN Reason: Hypoglycemia Protocol Stop: 11/21/23 08:49 Glucose (Glucose 10 Tab/Tube) 4 - 8 tab PO UD PRN; Protocol PRN Reason: Hypoglycemia Treatment Stop: 11/21/23 08:49 Glucose (Glucose 40% Gel 15 Gm Tube) 15 - 30 gm PO UD PRN; Protocol PRN Reason: Hypoglycemia Protocol Stop: 11/21/23 08:49 Hydralazine HCl (Hydralazine Hcl 20 Mg/Ml Vial) 10 mg IV Q8 PRN PRN Reason: sbp>185 or dbp>95 Stop: 11/21/23 08:48 Last Admin: 10/22/23 09:31 Dose: 10 mg Lactated Ringer's (Lr) 1,000 mls @ 15 mls/hr IV .Q24H [facility] Stop: 11/21/23 06:44 Last Admin: 10/22/23 06:43 Dose: 15 mls/hr Sodium Chloride (Nss) 1,000 mls @ 100 mls/hr IV .Q10H [facility] Stop: 10/22/23 17:44 Last Admin: 10/22/23 09:31 Dose: 100 mls/hr Methylprednisolone 40 mg/ (Syringe) 0.64 mls @ 1.5 mls/min IV Q8 [facility] Stop: 11/21/23 07:59 Last Admin: 10/22/23 10:05 Dose: 1.5 mls/min Heparin Sodium/Dextrose (Heparin Sodium/Dextrose) 25,000 units in 500 mls @ 27 mls/hr IV .[id number] [facility]; Protocol Stop: 11/21/23 09:59 Last Admin: 10/22/23 10:00 Dose: 1,350 units/hr, 27 mls/hr Insulin Aspart (Insulin Aspart Per Unit Charge) 0 units SC ACHS [facility] Stop: 11/21/23 11:29 Last Admin: 10/22/23 12:14 Dose: 5 units Isosorbide Mononitrate (Isosorbide [place] Extended Rel 30 Mg Tabcr) 30 mg PO QAM [facility] Stop: 11/21/23 08:59 Last Admin: 10/22/23 09:57 Dose: 30 mg Levothyroxine Sodium (Levothyroxine Sodium 50 Mcg Tablet) 50 mcg PO DAILYBB [facility] Stop: 11/21/23 08:59 Last Admin: 10/22/23 09:57 Dose: 50 mcg Lorazepam (Lorazepam 0.5 Mg Tab) 0.5 mg PO TID PRN PRN Reason: anxiety Stop: 11/21/23 08:45 Miscellaneous (Carbohydrates For Hypoglycemia ) 15 - 30 gm PO UD PRN PRN Reason: Hypoglycemia Protocol Stop: 11/21/23 08:49 Morphine Sulfate (Morphine Sulfate 2 Mg/Ml Carp) 2 mg IV Q4 PRN PRN Reason: Moderate Pain (Scale 4, 5, 6) Stop: 11/05/23 13:42 Morphine Sulfate (Morphine Sulfate 4 Mg/Ml 1 Ml Carp\Vial) 4 mg IV Q4 PRN PRN Reason: Severe Pain (Scale 7, 8, 9,10) Stop: 11/05/23 13:42 Oxycodone HCl (Oxycodone Hcl Ir 5 Mg Tab (Immediate Release)) 15 mg PO TID PRN PRN Reason: pain Stop: 11/05/23 08:45 Last Admin: 10/22/23 10:01 Dose: 15 mg Pantoprazole Sodium (Pantoprazole 40 Mg Tab) 40 mg PO QAM [facility] Stop: 11/21/23 08:59 Last Admin: 10/22/23 09:27 Dose: 40 mg Pregabalin (Pregabalin 150 Mg Cap) 150 mg PO TID [facility] Stop: 11/21/23 08:59 Last Admin: 10/22/23 09:31 Dose: 150 mg Umeclidinium Doyle (Umeclidinium Doyle 62.5mcg/Blister 7 Puffs/Inhaler) 1 puffs INH DAILY [facility] Stop: 11/21/23 08:59 Last Admin: 10/22/23 10:06 Dose: 1 puffs PG Care Time/CCT Total # of Minutes Spent Total Time Spent with Patient: Total time spent is greater than 50% in coordination of care (as documented) at patient's floor/unit and/or counseling patient: Coding Level of Care Code 09886 INT INP/OBS CARE 3/75MIN Diagnoses Paroxysmal atrial fibrillation I48.0 S/P coronary artery stent placement Z95.5 Coronary artery disease I25.10 HTN (hypertension), benign I10 Aortic stenosis I35.0 Abnormal nuclear stress test R94.39 Atypical chest pain R07.89
--- NOTE | 2023-10-22 14:18 | XCELERA ---
[id number]
[2023-10-22] MEDS: MoRPHine SULFATE 2 MG/ML CARP IV PRN (14:26)
--- NOTE | 2023-10-22 16:00 | Electrocardiogram Report ---
Test Reason : Blood Pressure : / mmHG Vent. Rate : 117 BPM Atrial Rate : 098 BPM P-R Int : 000 ms QRS Dur : 084 ms QT Int : 326 ms P-R-T Axes : 000 169 203 degrees QTc Int : 454 ms Atrial fibrillation with rapid ventricular response Limb lead reversal Nonspecific ST abnormality Abnormal ECG When compared with ECG of 27-MAY-2023 00:50, Atrial fibrillation has replaced Sinus rhythm Limb lead reversal is now present Nonspecific T wave abnormality now evident in Inferior leads Confirmed by Brian Lizama ([id number]) on 10/22/2023 4:00:41 PM Referred By: Yumiko Lilly Confirmed By:Brian Lizama
--- NOTE | 2023-10-22 16:01 | Electrocardiogram Report ---
Test Reason : Blood Pressure : / mmHG Vent. Rate : 083 BPM Atrial Rate : 083 BPM P-R Int : 158 ms QRS Dur : 082 ms QT Int : 398 ms P-R-T Axes : 049 019 005 degrees QTc Int : 467 ms Normal sinus rhythm Normal ECG When compared with ECG of 22-OCT-2023 07:29, Sinus rhythm has replaced Atrial fibrillation Limb lead reversal is no longer present Confirmed by Brian Lizama ([id number]) on 10/22/2023 4:01:08 PM Referred By: Yumiko Lilly Confirmed By:Brian Lizama
[2023-10-22] MEDS: LORazepam 0.5 MG TAB PO PRN (17:13)
[2023-10-22 17:57] LABS: ANTI-Xa, UFH(UnfractionatedHep 0.29 IU/ml (0.3-0.7)
[2023-10-22] MEDS: ACETAMINOPHEN 325 MG TAB PO PRN (18:31)
[2023-10-22] MEDS: BUDESONIDE 0.5 MG/2 ML VIAL (PULMICORT) NEB SCH (19:32)
[2023-10-22] MEDS: FORMOTEROL 20 MCG/2 ML VIAL INH SCH (19:32)
[2023-10-22] MEDS: ATORVASTATIN 40 MG TAB PO SCH (20:38)
[2023-10-23 01:02] LABS: ANTI-Xa, UFH(UnfractionatedHep 0.29 IU/ml (0.3-0.7)
--- NOTE | 2023-10-23 07:25 | Pulmonology Progress Note ---
Date of Service October 23, 2023 Assessment & Plan (1) Acute and chronic respiratory failure: (2) Atrial fibrillation: (3) Abnormal chest CT: (4) Pulmonary mass: (5) Obesity: (6) Smoker: (7) COPD (chronic obstructive pulmonary disease): Plan CT chest 05/26/2023 personally reviewed: Centrilobular emphysema appreciated bilaterally Left upper lobe pulmonary nodule 10 mm Left lower lobe opacity 4.7 cm x 2.1 cm No significant mediastinal lymphadenopathy 2D echo 05/27/2023: EF 55-60%, moderate concentric LVH, grade 1 diastolic dysfunction, mild to moderate aortic stenosis PFT 10/13/2023 personally reviewed: Moderate severe obstruction, insignificant bronchodilator response, lung volumes are not accurate, moderate decrease in DLCO FVC 1.65 L 46%, FEV1 1.15 L 42%, FEV1/FVC 70%, DLCO 59% -- Acute hypoxic respiratory failure COPD with emphysema Gold E On Symbicort and Spiriva at home. Patient is not using Spiriva on a daily basis Absolute eosinophil count 110 on 05/26/2023 -- Abnormal chest CT with left lower lobe mass 4.7 cm x 2.1 cm, no previous CT of the chest to compare The mass was PET positive We have been trying to schedule EBUS for approximately 4 weeks but it keeps getting delayed as patient has not been feeling well. Patient did have a chest x-ray done back in January which showed a left sided opacity and seems to be increasing in size In a patient who has significant smoking history as well as history of lung cancer in father possibility of cancer is high -- Current smoker >60 pack-year smoking history, currently smoking a pack a day -- Obesity Advised to lose weight diet and exercise --History of lung cancer in father who was a smoker --New onset A-fib Plan: Add hypertonic saline nebulized twice a day Decree Solu-Medrol to 40 mg twice daily Keep O2 saturation between 90-92% BiPAP nightly and as needed shortness of breath Please note the above document was generated using voice recognition software. It may contain grammatical, syntax or spelling errors.Any formal questions or concerns about the content, text or information contained within the body of this dictation should be directly addressed to the provider for clarification. Admission and Anticipated Discharge Date Admission Date: October 22, 2023 Subjective Patient seen and examined at bedside. No acute distress, no adverse events overnight States that she is feeling better compared to how she was yesterday Coughing has decreased in intensity. Bringing up clear phlegm Denies any chest pain. Does have generalized bodyaches for which she takes medications at home. Blood pressure is better controlled Mild headache, no blurry vision Review of Systems 2 Review of Systems: All systems reviewed & are unremarkable except as noted in Subjective Physical Exam 2 Physical Exam: Constitutional: No acute distress HEENT: EOMI, PERRLA Respiratory system: Decreased air entry bilaterally, no rhonchi, mild crackles bilaterally, minimal expiratory wheeze bilaterally CVS: S1-S2 positive, no murmurs or gallops Abdomen: Soft, nontender, nondistended, positive bowel sounds x4, obese Extremities: +2 pulses bilaterally radialis/ dorsalis pedis, no cyanosis, minimal pitting edema bilateral lower extremity Neuro: Awake alert oriented x3 Psych: Normal mood and affect G/U: No [place] Skin: no rashes, warm and dry Lymphatic: no cervical or axillary lymphadenopathy Results & Data Results & Data Vital Signs (Past 12 Hours) Vital Signs Temp Pulse Pulse Resp BP BP Pulse Ox 10/23/23 07:05 79 18 98 10/23/23 03:53 37.1 C 79 20 158/97 H 94 10/23/23 00:47 91 H 10/22/23 23:33 168/86 H 10/22/23 23:01 36.9 C 10/22/23 20:20 10/22/23 20:00 83 18 10/22/23 19:32 78 18 98 10/22/23 19:26 166/89 H 10/22/23 19:26 85 18 96 O2 Del Method O2 Flow Rate 10/23/23 07:05 Nasal Cannula 2 10/23/23 03:53 Nasal Cannula 2 10/23/23 00:47 10/22/23 23:33 10/22/23 23:01 10/22/23 20:20 Nasal Cannula 2 10/22/23 20:00 10/22/23 19:32 Nasal Cannula 2 10/22/23 19:26 10/22/23 19:26 Laboratory Results 10/22/23 08:12 10/22/23 08:12 PG Care Time/CCT Total # of Minutes Spent Total Time Spent with Patient: Total time spent is greater than 50% in coordination of care (as documented) at patient's floor/unit and/or counseling patient: Coding Level of Care Code 89792 SUB INP/OBS CARE 3/50MIN Diagnoses Acute and chronic respiratory failure J96.20 Atrial fibrillation I48.[address] R93.89 Pulmonary mass R91.8 Obesity E66.9 Smoker F17.200 COPD (chronic obstructive pulmonary disease) J44.9
[2023-10-23] MEDS: dilTIAZem HCl 60 MG TAB PO SCH (08:08)
[2023-10-23 08:35] LABS: ANTI-Xa, UFH(UnfractionatedHep 0.31 IU/ml (0.3-0.7)
[2023-10-23] MEDS ORDERED: INSULIN HUMAN NPH SC ONE (12:01)
[2023-10-23] MEDS: NovoLIN-N (NPH) PER UNIT CHARGE SQ ONE (13:01)
--- NOTE | 2023-10-23 13:41 | Electrocardiogram Report ---
Test Reason : Blood Pressure : / mmHG Vent. Rate : 077 BPM Atrial Rate : 077 BPM P-R Int : 176 ms QRS Dur : 090 ms QT Int : 410 ms P-R-T Axes : 070 021 026 degrees QTc Int : 463 ms Normal sinus rhythm Normal ECG When compared with ECG of 22-OCT-2023 14:34, No significant change was found Confirmed by Juan Luis Arrieta ([id number]) on 10/23/2023 1:40:55 PM Referred By: Yumiko Lilly Confirmed By:Juan Luis Arrieta
--- NOTE | 2023-10-23 17:07 | Hospitalist Progress Note ---
Date of Service October 23, 2023 Assessment & Plan (1) Uncontrolled hypertension: Plan: Patient presented for bronchoscopy found to have blood pressures markedly elevated. HOME Medications include amlodipine carvedilol clonidine pulmonary wants to be conservative with B Blockers will continue clonidine and use diltiazem (2) Atrial fibrillation: Plan: Concern for atrial fibrillation, Therapeutic anticoagulation with heparin therapy. Patient has a history of previous TIA, heparin will be held for bronchoscopy Prehospital patient was on carvedilol we will convert to diltiazem. Echocardiogram normal EF Conc LVH, mild Previous history of Takotsubo's cardiomyopathy in 2018, coronary artery disease with coronary artery stent placed x 4 Cardiac perfusion stress test performed 10/19/2023 showing possible very small area of apical ischemia Inferior inferoseptal fixed defects Ejection fraction 51% (3) Chronic respiratory failure: Plan: Patient follows with Dr. Lilly for COPD, Gold class E (severe) FEV1 0.97 L Symbicort and Spiriva as outpt acute exacerbation of COPD, given solu medrol, budesonide and formoterol nebs umeclidinium glucose now with poor control with steroids adding basal insulin, check AIC Current everyday smoker, 60+ pack year smoking history (4) Mass of lower lobe of left lung: Plan: Abnormal chest x-ray, and PET scan in the left lower lobe CT chest from May 31 shows a left lower lobe opacity 4.7 x 2.1 cm with no s ignificant mediastinal lymphadenopathy Risk factor of lung cancer includes personal smoking and family history. Risk optimization possible bronchoscopy for diagnostic purposes. Admission and Anticipated Discharge Date Admission Date: October 22, 2023 Subjective pt without distress , breathing much easier, rate controlled afib, Physical Exam Physical Exam: continues with better rate control pulmonary exam much improved from intial description abd is soft and non tender ext with tr edema Results & Data Results & Data Vital Signs (Past 12 Hours) Vital Signs Temp Pulse Resp BP BP Pulse Ox O2 Del Method 10/23/23 14:06 71 162/79 H 10/23/23 11:25 98.2 F 74 22 146/78 H 95 Room Air 10/23/23 08:00 Room Air 10/23/23 07:55 97.5 F L 85 22 173/91 H 92 Room Air 10/23/23 07:05 79 18 98 Nasal Cannula O2 Flow Rate 10/23/23 14:06 10/23/23 11:25 10/23/23 08:00 10/23/23 07:55 10/23/23 07:05 2 PG Care Time/CCT Total # of Minutes Spent Total Time Spent with Patient: Total time spent is greater than 50% in coordination of care (as documented) at patient's floor/unit and/or counseling patient: Coding Level of Care Code 64359 SUB INP/OBS CARE 3/50MIN Diagnoses Uncontrolled hypertension I10 Atrial fibrillation I48.91 Chronic respiratory failure J96.10 Mass of lower lobe of left lung R91.8
[2023-10-23] MEDS: MoRPHine SULFATE 4 MG/ML 1 ML CARP\\VIAL IV PRN (17:09)
[2023-10-23] MEDS: SODIUM CHLOR 7% 4 ML NEB NEB SCH (19:56)
[2023-10-23] MEDS: COUGH DROP (SUGAR FREE) LOZ 24 LOZ/1 BOX BUCCAL STA (20:01)
[2023-10-23] MEDS: methylPREDNISolone 40 MG in SYRINGE 0 ML IV SCH (20:02)
[2023-10-23] MEDS: LANTUS PER UNIT CHARGE SQ SCH (20:08)
[2023-10-24 04:48] LABS: Hematocrit (blood only) 38.9 % (37.0-47.0); Hemoglobin 12.3 g/dl (12.0-16.0); Mean Corpuscular Hemoglobin 27.5 pg (25.0-34.0); Mean Corpuscular Hgb Conc 31.6 g/dL (32.0-36.0); Mean Corpuscular Volume 86.8 fL (80.0-100.0); Mean Platelet Volume 9.7 fL (9.4-12.4); Platelet Count 334 K/uL (130-400); RDW Coefficient of Variation 14.3 % (11.5-14.5); RDW Standard Deviation 45.5 fL (36.4-46.3); Red Blood Count 4.48 M/uL (4.20-5.40); White Blood Count 10.01 K/ul (4.8-10.8)
[2023-10-24 05:02] LABS: BUN Creatinine Ratio 25.7 (10-20); Calcium 9.9 mg/dl (8.6-10.3); Creatinine Clr Calc Pharmacy 96.2 ml/min; Est GFR (African American) 106.1 ml/min; Est GFR (Non-African American) 91.6 ml/min; Potassium 4.2 mmol/L (3.5-5.1)
[2023-10-24 05:08] LABS: ANTI-Xa, UFH(UnfractionatedHep 0.26 IU/ml (0.3-0.7)
--- NOTE | 2023-10-24 07:25 | Pulmonology Progress Note ---
Date of Service October 24, 2023 Assessment & Plan (1) Acute and chronic respiratory failure: (2) Atrial fibrillation: (3) Abnormal chest CT: (4) Pulmonary mass: (5) Obesity: (6) Smoker: (7) COPD (chronic obstructive pulmonary disease): Plan CT chest 05/26/2023 personally reviewed: Centrilobular emphysema appreciated bilaterally Left upper lobe pulmonary nodule 10 mm Left lower lobe opacity 4.7 cm x 2.1 cm No significant mediastinal lymphadenopathy 2D echo 05/27/2023: EF 55-60%, moderate concentric LVH, grade 1 diastolic dysfunction, mild to moderate aortic stenosis PFT 10/13/2023 personally reviewed: Moderate severe obstruction, insignificant bronchodilator response, lung volumes are not accurate, moderate decrease in DLCO FVC 1.65 L 46%, FEV1 1.15 L 42%, FEV1/FVC 70%, DLCO 59% -- Acute hypoxic respiratory failure COPD with emphysema Gold E On Symbicort and Spiriva at home. Patient is not using Spiriva on a daily basis Absolute eosinophil count 110 on 05/26/2023 -- Abnormal chest CT with left lower lobe mass 4.7 cm x 2.1 cm, no previous CT of the chest to compare The mass was PET positive We have been trying to schedule EBUS for approximately 4 weeks but it keeps getting delayed as patient has not been feeling well. Patient did have a chest x-ray done back in January which showed a left sided opacity and seems to be increasing in size In a patient who has significant smoking history as well as history of lung cancer in father possibility of cancer is high -- Current smoker >60 pack-year smoking history, currently smoking a pack a day -- Obesity Advised to lose weight diet and exercise --History of lung cancer in father who was a smoker --New onset A-fib Plan: Continue with hypertonic saline nebulized twice a day. Add nebulized Mucomyst Continue Solu-Medrol to 40 mg twice daily Patient's Coreg has been changed to diltiazem and amlodipine has been discontinued. Blood pressure still on the higher side, will add lisinopril 20 along with hydrochlorothiazide 12.5 mg, will consider giving another dose tonight if the blood pressure is still high N.p.o. postmidnight for EBUS tomorrow in the OR to be performed by me Keep O2 saturation between 90-92% BiPAP nightly and as needed shortness of breath Please note the above document was generated using voice recognition software. It may contain grammatical, syntax or spelling errors.Any formal questions or concerns about the content, text or information contained within the body of this dictation should be directly addressed to the provider for clarification. Admission and Anticipated Discharge Date Admission Date: October 22, 2023 Subjective Patient seen and examined at bedside. No acute distress, notable since overnight She states that she is feeling much better compared to when she came. Coughing up and bringing up clear phlegm Denies any headache today. No chest pain Fair appetite, no nausea or vomiting. Review of Systems 2 Review of Systems: All systems reviewed & are unremarkable except as noted in HPI & below Physical Exam 2 Physical Exam: Constitutional: No acute distress HEENT: EOMI, PERRLA Respiratory system: Decreased air entry bilaterally, no rhonchi, mild crackles bilaterally, minimal expiratory wheeze bilaterally CVS: S1-S2 positive, no murmurs or gallops Abdomen: Soft, nontender, nondistended, positive bowel sounds x4, obese Extremities: +2 pulses bilaterally radialis/ dorsalis pedis, no cyanosis, minimal pitting edema bilateral lower extremity Neuro: Awake alert oriented x3 Psych: Normal mood and affect G/U: No Henderson Skin: no rashes, warm and dry Lymphatic: no cervical or axillary lymphadenopathy Results & Data Results & Data Vital Signs (Past 12 Hours) Vital Signs Temp Pulse Pulse Resp BP BP Pulse Ox 10/24/23 03:12 36.8 C 75 18 174/85 H 94 10/23/23 23:00 67 10/23/23 22:52 37.1 C 67 12 158/72 H 95 10/23/23 19:57 76 19 95 10/23/23 19:32 10/23/23 19:31 36.9 C 85 23 167/83 H 94 O2 Del Method 10/24/23 03:12 Room Air 10/23/23 23:00 10/23/23 22:52 Room Air 10/23/23 19:57 Room Air 10/23/23 19:32 Room Air 10/23/23 19:31 Room Air Laboratory Results 10/24/23 04:15 10/24/23 04:15 PG Care Time/CCT Total # of Minutes Spent Total Time Spent with Patient: Total time spent is greater than 50% in coordination of care (as documented) at patient's floor/unit and/or counseling patient: Coding Level of Care Code 96104 SUB INP/OBS CARE 350MIN Diagnoses Acute and chronic respiratory failure J96.20 Atrial fibrillation I48.[address] R93.89 Pulmonary mass R91.8 Obesity E66.9 Smoker F17.200 COPD (chronic obstructive pulmonary disease) J44.9
[2023-10-24] MEDS: LISINOPRIL/HCTZ 20/12.5MG 1 TAB TAB PO SCH (08:29)
[2023-10-24] MEDS: ACETYLCYSTEINE 20% INHAL SOLN 4ML ***DISPENSED BY RESP. INH SCH (10:23)
--- NOTE | 2023-10-24 12:19 | Electrocardiogram Report ---
Test Reason : Blood Pressure : / mmHG Vent. Rate : 062 BPM Atrial Rate : 062 BPM P-R Int : 170 ms QRS Dur : 094 ms QT Int : 440 ms P-R-T Axes : 071 024 029 degrees QTc Int : 446 ms Normal sinus rhythm Minimal voltage criteria for LVH, may be normal variant Abnormal ECG When compared with ECG of 23-OCT-2023 06:05, Nonspecific T wave abnormality no longer evident in Lateral leads Confirmed by Orlando Cortés ([id number]) on 10/24/2023 12:18:45 PM Referred By: Yumiko Lilly Confirmed By:Serjio Cortés
[2023-10-24 12:44] LABS: ANTI-Xa, UFH(UnfractionatedHep 0.24 IU/ml (0.3-0.7)
--- NOTE | 2023-10-24 15:23 | Hospitalist Progress Note ---
Date of Service October 24, 2023 Assessment & Plan (1) Uncontrolled hypertension: Plan: Patient presented for bronchoscopy found to have blood pressures markedly elevated. HOME Medications include amlodipine carvedilol clonidine pulmonary wants to be conservative with B Blockers will continue clonidine and use diltiazem changing to extended release 10/26/23, adding lisinopril (2) Atrial fibrillation: Plan: Concern for atrial fibrillation, Therapeutic anticoagulation with heparin therapy. Patient has a history of previous TIA, heparin will be held for bronchoscopy Prehospital patient was on carvedilol we will convert to diltiazem, plan on extended release on wednesday 10/25 Echocardiogram normal EF Conc LVH, mild Previous history of Takotsubo's cardiomyopathy in 2018, coronary artery disease with coronary artery stent placed x 4 Cardiac perfusion stress test performed 10/19/2023 showing possible very small area of apical ischemia Inferior inferoseptal fixed defects Ejection fraction 51% (3) Chronic respiratory failure: Plan: Patient follows with Dr. Lilly for COPD, Gold class E (severe) FEV1 0.97 L Symbicort and Spiriva as outpt acute exacerbation of COPD, given solu medrol, budesonide and formoterol nebs umeclidinium glucose now with poor control with steroids adding basal insulin, check AIC Current everyday smoker, 60+ pack year smoking history (4) Mass of lower lobe of left lung: Plan: Abnormal chest x-ray, and PET scan in the left lower lobe CT chest from May 31 shows a left lower lobe opacity 4.7 x 2.1 cm with no significant mediastinal lymphadenopathy Risk factor of lung cancer includes personal smoking and family history. Risk optimization possible bronchoscopy for diagnostic purposes. Admission and Anticipated Discharge Date Admission Date: October 22, 2023 Subjective pt does have some more wheezes today compared to yesterday, acetylcistine started by pulm med for bronchoscopy 10/25/23 Afib with good rate control transitioned to po meds Physical Exam Physical Exam: continues with better rate control pulmonary exam much improved from intial description some coarse rhonchi R>L abd is soft and non tender ext with tr edema Results & Data Results & Data Vital Signs (Past 12 Hours) Vital Signs Temp Pulse Pulse Resp BP Pulse Ox O2 Del Method 10/24/23 11:53 98.1 F 68 21 130/53 L 93 Room Air 03/17/24 10:09 Room Air 10/24/23 08:30 98 F 64 18 176/80 H 93 Room Air 10/24/23 08:00 69 10/24/23 07:23 82 18 96 Room Air Laboratory Results reviewed cbc reviewed chemistry PG Care Time/CCT Total # of Minutes Spent Total Time Spent with Patient: Total time spent is greater than 50% in coordination of care (as documented) at patient's floor/unit and/or counseling patient: Coding Level of Care Code 44141 SUB INP/OBS CARE 3/50MIN Diagnoses Uncontrolled hypertension I10 Atrial fibrillation I48.91 Chronic respiratory failure J96.10 Mass of lower lobe of left lung R91.8
[2023-10-24] MEDS ORDERED: NovoLIN-N (NPH) PER UNIT CHARGE SC ONE (16:49)
[2023-10-24] MEDS: NovoLIN-N (NPH) PER UNIT CHARGE SC ONE (17:22)
[2023-10-24 19:55] LABS: ANTI-Xa, UFH(UnfractionatedHep 0.29 IU/ml (0.3-0.7)
[2023-10-24] MEDS: LANTUS PER UNIT CHARGE SQ SCH (20:12)
[2023-10-25 02:35] LABS: Hematocrit (blood only) 39.8 % (37.0-47.0); Hemoglobin 13.2 g/dl (12.0-16.0); Mean Corpuscular Hgb Conc 33.2 g/dL (32.0-36.0); Mean Corpuscular Volume 84.5 fL (80.0-100.0); Mean Platelet Volume 9.5 fL (9.4-12.4); Platelet Count 317 K/uL (130-400); RDW Coefficient of Variation 14.1 % (11.5-14.5); RDW Standard Deviation 43.4 fL (36.4-46.3); Red Blood Count 4.71 M/uL (4.20-5.40); White Blood Count 8.53 K/ul (4.8-10.8)
[2023-10-25 02:51] LABS: Creatinine Clr Calc Pharmacy 87.7 ml/min; Est GFR (African American) 94.6 ml/min; Est GFR (Non-African American) 81.6 ml/min; Potassium 4.2 mmol/L (3.5-5.1)
[2023-10-25 03:00] LABS: ANTI-Xa, UFH(UnfractionatedHep 0.33 IU/ml (0.3-0.7)
[2023-10-25] MEDS ORDERED: hydrOXYzine HCl 25 MG TAB PO PRN (07:12)
[2023-10-25] MEDS ORDERED: hydrALAZINE HCL 20 MG/ML VIAL IV PRN (07:12)
[2023-10-25 07:17] LABS: Estimated Average Glucose 134 mg/dl; Hemoglobin A1C 6.3 % (4.5-5.6)
[2023-10-25] MEDS: lisinopril 20 MG TAB PO SCH (08:14)
[2023-10-25] MEDS ORDERED: dilTIAZem HCL 180 MG CAPCR PO SCH (09:00)
[2023-10-25] MEDS ORDERED: ONDANSETRON INJ 2 MG/ML 2 ML VIAL ONE (10:15)
[2023-10-25] MEDS ORDERED: DEXAMETHASONE SOD INJ 4 MG/ML VIAL ONE (10:15)
[2023-10-25] MEDS ORDERED: fentaNYL citrate PF 100 MCG/2 ML VIAL ONE (10:15)
[2023-10-25] MEDS ORDERED: MIDAZOLAM HCL 1 MG/ML 2ML VIAL ONE (10:15)
[2023-10-25] MEDS ORDERED: PROPOFOL IV EMULSION 10 MG/ML 20 ML VIAL IV ONE (10:15)
[2023-10-25] MEDS ORDERED: LIDOCAINE 2% 2 ML VIAL/AMP(20MG/ML) INFIL ONE ×2 (10:15)
[2023-10-25] MEDS ORDERED: LARYING-O-JET KIT (LTA) ONE (11:40)
--- NOTE | 2023-10-25 12:15 | Pulmonology Progress Note ---
Date of Service October 25, 2023 Assessment & Plan (1) Acute and chronic respiratory failure: (2) Atrial fibrillation: (3) Abnormal chest CT: (4) Pulmonary mass: (5) Obesity: (6) Smoker: (7) COPD (chronic obstructive pulmonary disease): Plan CT chest 05/26/2023 personally reviewed: Centrilobular emphysema appreciated bilaterally Left upper lobe pulmonary nodule 10 mm Left lower lobe opacity 4.7 cm x 2.1 cm No significant mediastinal lymphadenopathy 2D echo 05/27/2023: EF 55-60%, moderate concentric LVH, grade 1 diastolic dysfunction, mild to moderate aortic stenosis PFT 10/13/2023 personally reviewed: Moderate severe obstruction, insignificant bronchodilator response, lung volumes are not accurate, moderate decrease in DLCO FVC 1.65 L 46%, FEV1 1.15 L 42%, FEV1/FVC 70%, DLCO 59% -- Acute hypoxic respiratory failure COPD with emphysema Gold E On Symbicort and Spiriva at home. Patient is not using Spiriva on a daily basis Absolute eosinophil count 110 on 05/26/2023 -- Abnormal chest CT with left lower lobe mass 4.7 cm x 2.1 cm, no previous CT of the chest to compare The mass was PET positive We have been trying to schedule EBUS for approximately 4 weeks but it keeps getting delayed as patient has not been feeling well. Patient did have a chest x-ray done back in January which showed a left sided opacity and seems to be increasing in size In a patient who has significant smoking history as well as history of lung cancer in father possibility of cancer is high -- Current smoker >60 pack-year smoking history, currently smoking a pack a day -- Obesity Advised to lose weight diet and exercise --History of lung cancer in father who was a smoker --New onset A-fib Plan: Continue with hypertonic saline nebulized twice a day. Add nebulized Mucomyst Continue Solu-Medrol to 40 mg twice daily For EBUS today, risk and benefit of the procedure was again explained to the patient in the presence of and son. They understand and patient is agreeable to the procedure. Consent was already signed last Wednesday. Keep O2 saturation between 90-92% BiPAP nightly and as needed shortness of breath Patient is asking if she could go home after the procedure. If everything goes well after the procedure then it is okay from my side to be sent home. Would recommend not to do any extensive exercise or lift anything heavy for 4-5 days postprocedure Can start her anticoagulation tomorrow if she is not having significant hemoptysis Please note the above document was generated using voice recognition software. It may contain grammatical, syntax or spelling errors.Any formal questions or concerns about the content, text or information contained within the body of this dictation should be directly addressed to the provider for clarification. Admission and Anticipated Discharge Date Admission Date: October 22, 2023 Subjective Patient seen and examined at bedside. No acute distress, no adverse events overnight. She was saturating 92-93% on room air. Overall she stated she is feeling better. Blood pressure is also better controlled She is n.p.o. for the procedure today. Review of Systems 2 Review of Systems: All systems reviewed & are unremarkable except as noted in Subjective Physical Exam 2 Physical Exam: Constitutional: No acute distress HEENT: EOMI, PERRLA Respiratory system: Decreased air entry bilaterally, no rhonchi, mild crackles bilaterally, minimal expiratory wheeze bilaterally (improved from before) CVS: S1-S2 positive, positive 2 out of 6 systolic murmur appreciated best at aorta Abdomen: Soft, nontender, nondistended, positive bowel sounds x4, obese Extremities: +2 pulses bilaterally radialis/ dorsalis pedis, no cyanosis, m inimal pitting edema bilateral lower extremity Neuro: Awake alert oriented x3 Psych: Normal mood and affect G/U: No Henderson Skin: no rashes, warm and dry Lymphatic: no cervical or axillary lymphadenopathy Results & Data Results & Data Vital Signs (Past 12 Hours) Vital Signs Temp Pulse Pulse Resp BP BP BP 10/25/23 11:02 36.6 C 10/25/23 11:00 64 19 10/25/23 11:00 148/66 H 10/25/23 10:00 63 14 10/25/23 08:08 183/87 H 10/25/23 08:08 86 20 10/25/23 08:00 10/25/23 08:00 36.9 C 10/25/23 07:30 86 18 10/25/23 05:39 180/106 H 184/100 H 10/25/23 04:39 37.0 C 70 18 206/98 H 10/25/23 00:48 176/87 H 03/18/24 00:14 36.3 C L 61 19 156/106 H Pulse Ox O2 Del Method 10/25/23 11:02 10/25/23 11:00 93 Room Air 10/25/23 11:00 10/25/23 10:00 10/25/23 08:08 10/25/23 08:08 96 Room Air 10/25/23 08:00 Room Air 10/25/23 08:00 10/25/23 07:30 92 Room Air 10/25/23 05:39 10/25/23 04:39 94 Room Air 10/25/23 00:48 10/25/23 00:14 91 Room Air Laboratory Results 10/25/23 02:19 10/25/23 02:19 PG Care Time/CCT Total # of Minutes Spent Total Time Spent with Patient: Total time spent is greater than 50% in coordination of care (as documented) at patient's floor/unit and/or counseling patient: Coding Level of Care Code 20295 SUB INP/OBS CARE 2/35MIN Diagnoses Acute and chronic respiratory failure J96.20 Atrial fibrillation I48.[address] R93.89 Pulmonary mass R91.8 Obesity E66.9 Smoker F17.200 COPD (chronic obstructive pulmonary disease) J44.9
--- NOTE | 2023-10-25 13:19 | Procedure Note ---
Procedure Note: Bronchoscopy Procedure PREOPERATIVE DIAGNOSIS: Left lower lobe mass POSTOPERATIVE DIAGNOSIS: Left lower lobe mass, preliminary small cell lung cancer PROCEDURE PERFORMED: EBUS along with flexible fiberoptic bronchoscopy with bronchoalveolar lavage and Endobronchial biopsies COMPLICATIONS: None. INDICATION: Rule out malignancy PROCEDURE: After obtaining an informed consent, the patient was brought to the OR. The patient had appropriate oxygen, blood pressure, heart rate, and respiratory rate monitoring applied and monitored continuously throughout the procedure. Sedation was managed by anesthesia, please refer to the notes Bronchoscope was advanced through the ETT. The trachea appeared normal.The bronchoscope was then advanced through the jones, which was sharp. The scope was then advanced into the right main stem and each segment, subsegement in the right upper lobe, right middle lobe and right lower lobe were visualized. There was minimal amount of thick grayish secretions which were suctioned out. There were no other findings including evidence of mass, anatomic distortions, or hemorrhage. The bronchoscope was subsequently withdrawn and advanced into the left mainstem. Secondary jones was widened. There was a fungating mass appreciated right at the uptake of left lower lobe. The lumen into the left lower lobe was significantly narrowed. I was able to advance the bronchoscope a little bit but with not able to visualize the subsegments. Minimal amount of thick redmond secretion was suctioned out from the left upper lobe. Flexible bronchoscope was withdrawn and EBUS was introduced Station 7, station 4L as well as station 10 L were examined. Only station 10 L was deemed to be biopsy able. It seemed that station 10 was indirect connection with the left lower lobe mass Station 10 L: 9 passes with multiple sweeps, preliminary diagnosis small cell lung cancer EBUS was withdrawn and flexible bronchoscope was reintroduced The bronchoscope was then wedged in the left lower lobe and bronchoalveolar lavage samples were obtained. 90 ml of saline was instilled and 45 ml of fluid was aspirated back.The bronchoscope was withdrawn and the area was suctioned clear. The bronchoscope was then re-advanced into the left lower lobe and multiple transbronchial biopsies were taken. Minimal hemorrhage was identified and suctioned clear without difficulty. Cold saline was utilized to achieve adequate hemostasis. The bronchoscope was then withdrawn to the mainstem. The area was suctioned clear. The bronchoscope was then withdrawn. The patient tolerated the procedure well without evidence of desaturation or complications. Bronchoalveolar lavage samples were sent for cell count, Gram stain and bacterial culture, AFB culture and smear, fungal culture and smear, and cytology. Transbronchial biopsies were sent for pathology. Recommendations: Follow-up micro, cytology and pathology Follow-up chest x-ray MRI of the brain will be ordered to be done as soon as possible. Patient will be referred to oncology. Please note the above document was generated using voice recognition software. It may contain grammatical, syntax or spelling errors.Any formal questions or concerns about the content, text or information contained within the body of this dictation should be directly addressed to the provider for clarification. [facility] [place]odes (Charges) Pulmonary/Thoracic Procedure 1: Pulmonary and Thoracic: 69056 Bronchoscopy, w/EBUS 1 or 2 mediastinal Procedure 2: Pulmonary and Thoracic: 70629 Bronchoscopy w bronchial or endobronchial bx Procedure 3: Pulmonary and Thoracic: 45109 Dx bronchoscopy/BAL
--- NOTE | 2023-10-25 13:47 | XRay Report ---
XR chest 1V portable CLINICAL HISTORY: Post Bronchoscopy TECHNIQUE: Single frontal radiograph of the chest was obtained. Comparison: Comparison is made to chest radiograph 10/22/2023 FINDINGS: No lines and tubes are seen. Cardiomegaly is noted. Left lower lung airspace opacity is seen. No evid ence of pleural effusion or pneumothorax. IMPRESSION: Left lower lung airspace opacity is unchanged from prior exam. This may represent airspace opacity ve rsus pulmonary mass. ACT 112: Negative or not required by law. Electronically signed by: David Mccann M.D. 10/25/2023 1:46 PM
[2023-10-25] MEDS ORDERED: ePHEDrine sulfate 50 MG/ML AMP IV PRN (13:49)
[2023-10-25] MEDS ORDERED: NALOXONE HCL 0.4 MG/1 ML VIAL/CARP IV PRN (13:49)
[2023-10-25] MEDS ORDERED: fentaNYL citrate PF 100 MCG/2 ML VIAL IV PRN (13:49)
[2023-10-25] MEDS ORDERED: ONDANSETRON INJ 2 MG/ML 2 ML VIAL IV PRN (13:49)
[2023-10-25] MEDS ORDERED: FLUMAZENIL 0.1 MG/1 ML 10 ML VIAL IV PRN (13:49)
[2023-10-25] MEDS ORDERED: PROMETHAZINE HCL 6.25 MG in SODIUM CHLORIDE 0.9% 50 ML IV PRN (13:49)
[2023-10-25] MEDS ORDERED: ATROPINE SULFATE 0.1 MG/ML 10ML SYR IV PRN (13:49)
--- NOTE | 2023-10-25 14:06 | Anesthesiology Progress Note ---
Date of Service October 25, 2023 Anesthesia Post Procedure Vital Signs Vital Signs: Temp Pulse Pulse Resp BP BP BP 10/25/23 14:00 36.1 C L 75 19 151/86 H 10/25/23 13:50 79 19 149/75 H 10/25/23 13:43 10/25/23 13:40 90 19 162/82 H 10/25/23 13:30 100 H 19 168/116 H 10/25/23 13:21 36.0 C L 99 H 19 186/105 H 10/25/23 11:02 36.6 C 10/25/23 11:00 64 19 10/25/23 11:00 148/66 H 10/25/23 10:00 63 14 10/25/23 08:08 183/87 H 10/25/23 08:08 86 20 10/25/23 08:00 10/25/23 08:00 36.9 C 10/25/23 07:30 86 18 10/25/23 05:39 180/106 H 184/100 H 10/25/23 04:39 37.0 C 70 18 206/98 H 10/25/23 00:48 176/87 H 10/25/23 00:14 36.3 C L 61 19 156/106 H 10/25/23 00:00 57 L 10/24/23 19:12 67 16 10/24/23 19:10 36.6 C 64 20 169/74 H 10/24/23 19:06 10/24/23 18:05 67 10/24/23 18:04 36.4 C 64 18 172/68 H Pulse Ox O2 Del Method O2 Flow Rate 10/25/23 14:00 95 Nasal Cannula 4 10/25/23 13:50 94 Nasal Cannula 4 10/25/23 13:43 Mechanical Vent 10/25/23 13:40 94 Nasal Cannula 4 10/25/23 13:30 99 Oxymask 5 10/25/23 13:21 99 Oxymask 5 10/25/23 11:02 10/25/23 11:00 93 Room Air 10/25/23 11:00 10/25/23 10:00 10/25/23 08:08 10/25/23 08:08 96 Room Air 10/25/23 08:00 Room Air 10/25/23 08:00 10/25/23 07:30 92 Room Air 10/25/23 05:39 10/25/23 04:39 94 Room Air 10/25/23 00:48 10/25/23 00:14 91 Room Air 10/25/23 00:00 10/24/23 19:12 94 Room Air 10/24/23 19:10 94 Room Air 10/24/23 19:06 Room Air 10/24/23 18:05 10/24/23 18:04 93 Room Air Transfer of Care Handoff Completed per policy Notes Mental Status: alert / awake / arousable Patient Amnestic to Procedure: Yes Nausea / Vomiting: adequately controlled Pain: adequately controlled Airway Patency, RR, SpO2: stable & adequate BP & HR: stable & adequate Hydration State: stable & adequate Anesthetic Complications: no major complications apparent
[2023-10-25 14:19] LABS: Neutrophil Body Fluid Man 74 %
[2023-10-25 14:20] LABS: Fluid Mono/Macrophage 19 %; Lymphocyte Body Fluid Man 7 %
--- NOTE | 2023-10-25 16:40 | Discharge Summary ---
Date of Service October 25, 2023 Admission HPI Per Admitting Provider 63-year-old female who came to the hospital for an outpatient bronchoscopy to be markedly hypertensive with new onset atrial fibrillation. Recent bronchoscopy was tried to diagnose a chest x-ray abnormality that is being followed in the left lower lobe, where mass was seen 4.7 x 2.1 cm. Patient has a significant smoking history and a family history of lung cancer. Patient has a history of COPD, history of Takotsubo's cardiomyopathy and mild aortic stenosis. She was admitted for control of blood pressure. She is given additional doses of oral medications. Her atrial fibrillation although new was rate controlled. She was instituted on heparin therapy. Principal Diagnosis Uncontrolled hypertension uncontrolled afib lung mass, preliminary diagnosis of small cell lung cancer uncontrolled diabetes Discharge Exam pt seen post procedure asked pt to stay another day told family we wanted pt to say pt wants to go home lungs are with some rhonchi no wheezes Discharge Data Allergies Allergy/AdvReac Type Severity Reaction Status Date / Time latex Allergy Unknown skin Verified 10/22/23 06:03 itching Influenza Virus Vaccines AdvReac Unknown developed Verified 10/22/23 06:03 blood clots vaccine adjuvant system, AdvReac blood clots Verified 10/22/23 06:03 AS01B liposomal [From Shingrix (PF)] varicella-zoster virus AdvReac blood clots Verified 10/22/23 06:03 glycoprotein E, recombinant [From Shingrix (PF)] Consultations 10/22/23 07:45 Consult Cardiology Routine Consult Pulmonology Routine Procedures Performed Operation Date: 10/25/23 12:15 Actual Procedures p Endobronchial Ultrasound Guided - Yumiko Lilly MD, [facility] s Bronchoscopy - Yumiko Lilly MD, [facility] Hospital Course (1) Uncontrolled hypertension: Patient presented for bronchoscopy found to have blood pressures markedly elevated. HOME Medications include amlodipine carvedilol clonidine pulmonary wants to be conservative with B Blockers will continue clonidine and use diltiazem changing to extended release 10/26/23, adding lisinopril continuing isosorbide and clonidine (2) Atrial fibrillation: Concern for atrial fibrillation, Therapeutic anticoagulation with eliquis start in the PM 10/26/23. Patient has a history of previous TIA, heparin will be held for bronchoscopy diltiazem 180 Echocardiogram normal EF Conc LVH, mild Previous history of Takotsubo's cardiomyopathy in 2018, coronary artery disease with coronary artery stent placed x 4 Cardiac perfusion stress test performed 10/19/2023 showing possible very small area of apical ischemia Inferior inferoseptal fixed defects Ejection fraction 51% (3) Chronic respiratory failure: Patient follows with Dr. Lilly for COPD, Gold class E (severe) FEV1 0.97 L Symbicort and Spiriva as outpt, changed to nebulized formoterol and budesonide, continue spiriva acute exacerbation of COPD, given solu medrol, budesonide and formoterol nebs umeclidinium glucose now with poor control with steroids , pt will be on steroid taper and on home metformin Current everyday smoker, 60+ pack year smoking history, on nicotine patch (4) Mass of lower lobe of left lung: Abnormal chest x-ray, and PET scan in the left lower lobe CT chest from May 31 shows a left lower lobe opacity 4.7 x 2.1 cm with no significant mediastinal lymphadenopathy Risk factor of lung cancer includes personal smoking and family history. bronchoscopy revealed small cell preminarily Total Time Total Time Spent Total Time Spent (In Minutes): It required greater than 30 minutes to prepare this patient for discharge. Discharge Plan Discharge Items Patient Disposition: Home - Self-Care Reason For Visit: Mediastinal Lymphadenopathy Discharge Diagnosis: Uncontrolled high blood pressure uncontrolled rapid heart rate lung mass, preliminary diagnosis of small cell lung cancer elevated blood sugar Activity: Per Instructions section Activity Comment: gradually increase activity Non-emergency contact: Primary Care Provider and Beam Builder Call non-emergency contact if: your symptoms worsen Follow-up/Referrals: Katarina Andre MD [Primary Care Provider] - 10/28/23 9:30 am Diet: Carb Consistent or DM2 Ambulatory Orders: SARS CoV2 RNA(COVID-19)Fusion (Routine) Timeframe: [id number] Location: Determined by Patient Ordered By: Tahira Deleontl Attending Provider Instructions: please complete tapering doses of prednisone, your blood sugar has been high please eat healthy lower sugar containing foods and eat lower amounts of starch limit your salt intake please follow up with Dr Lilly's office to arrange outpt MRI scan and [facility] Pending Studies at Discharge: No Stand-Alone Forms: My [facility], Smoking Cessation Medications and DC Order Prescriptions: New formoterol fumarate [Perforomist] 20 mcg/2 mL Solution For Nebulization 20 mcg inhalation BIDR Qty: 60 3RF Incruse Ellipta 62.5 mcg/actuation Blister With Device 1 inh inhalation DAILY Qty: 30 5RF diltiazem HCl 180 mg Capsule,Extended Release 24hr 180 mg PO QAM Qty: 30 5RF lisinopril 20 mg Tablet 20 mg PO QAM Qty: 30 5RF isosorbide mononitrate 30 mg Tablet Extended Release 24 Hr 30 mg PO QAM Qty: 30 5RF budesonide 0.5 mg/2 mL Suspension For Nebulization 0.5 mg NEB BIDR Qty: 60 5RF prednisone 10 mg tablet 10 mg PO DIRECTED Qty: 40 0RF Rx Instructions: see taper instructions 4 a day x 4 d>3 a day x 4 d>2 a day x 4 d>1 a day Eliquis 5 mg tablet 5 mg PO BID Qty: 60 0RF Rx Instructions: start 10/26/23 in the evening Continued metformin 500 mg tablet 500 mg PO BID Qty: 60 2RF (DME) Wheeled Walker Misc See Rx Instructions .Route Qty: 1 0RF Rx Instructions: w/ a seat and hand brakes atorvastatin 40 mg tablet 40 mg PO HS Qty: 90 1RF Rx Instructions: 40 mg PO at bedtime lorazepam [Ativan] 0.5 mg tablet 0.5 mg PO TID PRN (Reason: anxiety) Qty: 60 2RF pregabalin [Lyrica] 150 mg capsule 150 mg PO TID Qty: 90 2RF oxycodone 15 mg tablet 15 mg PO TID PRN (Reason: pain) Qty: 90 0RF nitroglycerin 0.4 mg tablet, sublingual 0.4 mg sublingual Q5M PRN (Reason: chest pain) Qty: 30 4RF Rx Instructions: do not exceed 3 doses per episode. call 911 if ongoing chest pain. levothyroxine [Synthroid] 50 mcg tablet 50 mcg PO QAM aspirin [Adult Low Dose Aspirin] 81 mg tablet,delayed release (DR/EC) 81 mg PO QAM clonidine HCl 0.1 mg tablet 0.1 mg PO BID Qty: 180 2RF pantoprazole 40 mg tablet,delayed release (DR/EC) 40 mg PO QAM Qty: 90 2RF albuterol sulfate 90 mcg/actuation HFA aerosol inhaler 2 puff inhalation QID PRN (Reason: shortness of breath or wheezing) Qty: 6.7 3RF levocetirizine [Xyzal] 5 mg tablet 5 mg PO DAILY PRN (Reason: allergies) clopidogrel [Plavix] 75 mg tablet 75 mg PO QAM nicotine 21-14-7 mg/24 hr patch, TD daily, sequential 1 patch transdermal DAILY Patient Comments: patient states not currently wearing Rx Instructions: apply 1-21 mg NICOTINE PATCH daily for 28 days; follow with 1-14 mg PATCH daily for 14 days, then 1-7mg PATCH daily for 14 days transdermal Discontinued azithromycin 250 mg tablet See Rx Instructions PO .COMPLEX Qty: 6 0RF Rx Instructions: take 500 mg today (day 1), then 250 mg for 4 days (days 2-5) budesonide-formoterol [Symbicort] 80-4.5 mcg/actuation HFA aerosol inhaler 2 puff inhalation BID Qty: 10.2 3RF Spiriva Respimat 2.5 mcg/actuation mist 2 puff inhalation DAILY Qty: 4 2RF carvedilol phosphate [Coreg CR] 40 mg Capsule, Er Multiphase 24 Hr 40 mg PO BID Rx Instructions: must administer with a meal/food amlodipine 2.5 mg tablet 2.5 mg PO QAM furosemide 40 mg tablet 40 mg PO QAM PRN (Reason: edema) diphenhydramine HCl [Benadryl] 25 mg Capsule 25 mg PO HS PRN (Reason: Allergy Symptoms) Discharge Orders: Discharge Order (Routine); Ordered 10/25/23 Ordered By: Salo Dinh/Other Patient Handouts: Managing Type 2 Diabetes Admission Data Admit Date/Time: 10/22/23 08:02 Attending Provider: Salo Adams Admit Provider: Yumiko Lilly Primary Care Provider: Katarina Andre Other Providers: Brian Lizama; Yumiko Lilly Other Interventions: Discharge Summary Assessment (RN) Last Done: 10/25/23 16:27 Coding Level of Care Code 38973 INP/OBS DISCH >30 MIN Diagnoses Uncontrolled hypertension I10 Atrial fibrillation I48.91 Chronic respiratory failure J96.10 Mass of lower lobe of left lung R91.8
[2023-10-26] MEDS ORDERED: dilTIAZem HCL 180 MG CAPCR PO SCH (09:00)
--- NOTE | 2023-11-01 22:02 | Coding Query ---
PATHOLOGY To promote full compliance with coding requirements relating to patient care, physician participation is requested in all cases of geotechnical engineer uncertainty. Please assist us with the question(s) below: Please review the Pathology report and please document any relevant diagnosis(es) below: The pathology report for the lymph node biopsy take during the patient's bronchoscopy are now available within the patient's chart. Those results indicate malignant cells present consistent with metastatic small cell carcinoma. Please confirm that you agree or disagree with those results below. -xx- I agree with the pathological findings from lymph node biopsy of malignant cells consistent with metastatic small cell carcinoma. -- I disagree with the pathological findings from lymph node biopsy of malignant cells consistent with metastatic small cell carcinoma. -- Other. Please specify. Thank you Gissell SCHAFFER
--- NOTE | 2023-11-01 22:13 | Coding Query ---
CODING QUERY To promote full compliance with coding requirements relating to patient care, provider participation is requested in all cases of foundation maker uncertainty. Please assist us with the question(s) below: Coding Question(s): Uncontrolled diabetes is documented in the medical record. To accurately assign codes to the patient's condition greater specificity is necessary. During the patient's stay, blood glucoses were documented as: 10/23/23 - 291 10/24/23 - 230 & 334 10/25/23 - 131 & 166 Based on your medical judgement, please clarify below the diagnosis related to these findings such as: -- Diabetes Type 2 with hyperglycemia -- Diabetes Type 2 with hypoglycemia -xx- Unable to determine. -- Other Physician's Response(s): Thank you Gissell Naylor Principal Diagnosis: "that condition established after study, to be chiefly responsible for occasioning the admission of the patient to the hospital for care." Co-Existing Principal Diagnosis: "when two or more diagnoses equally meet the criteria for principal diagnosis as determined by the circumstances of admission, diagnostic work up, and/or therapy provided, and the Alphabetic Index, Tabular List, or another coding guideline does not provide sequencing direction, any one of the diagnoses may be sequenced first." "When the physician has documented what appears to be a current diagnosis in the body of the record, but has not included the diagnosis in the final diagnostic statement, the physician should be asked whether the diagnosis should be added." (Source Coding Clinic 2 QTR90. p3-4) KARIME
== END 2023-10-25 17:00 | disposition home or self-care (01) | DRG 264 ==
LOC: ASU 05:36 → 1E 08:02 → SUATTDRO 08:02

== ENCOUNTER 2023-11-04 04:14 | Observation (INO) ==
[2023-11-04] MEDS: SODIUM CHLORIDE 0.9% 1,000 ML IV SCH ×2 (04:48→08:51)
[2023-11-04 04:54] LABS: Base Excess ABG 8.6 mEq/L (-9-1.8); HCO3 ABG 34 mmol/L (19-24); Oxygen Saturation ABG 95.6 % (90-95); PCO2 ABG 46 mmHg (35-46); PO2 ABG 70 mmHg (80-95); pH ABG 7.47 (7.35-7.45)
[2023-11-04 05:10] LABS: Basophils # (auto) 0.04 K/uL (0.00-0.20); Basophils % (auto) 0.3 %; Eosinophils % (auto) 0.8 %; Hematocrit (blood only) 40.5 % (37.0-47.0); Immature Granulocytes # (auto) 0.23 K/uL (0.01-0.20); Immature Granulocytes % (auto) 1.7 %; Lymphocytes # (auto) 1.23 K/uL (1.20-3.40); Lymphocytes % (auto) 9.3 %; Mean Corpuscular Hemoglobin 28.1 pg (25.0-34.0); Mean Corpuscular Hgb Conc 32.1 g/dL (32.0-36.0); Mean Corpuscular Volume 87.7 fL (80.0-100.0); Mean Platelet Volume 10.6 fL (9.4-12.4); Monocytes # (auto) 0.84 K/uL (0.11-0.59); Monocytes % (auto) 6.4 %; Neutrophils # (auto) 10.78 K/uL (1.40-6.50); Neutrophils % (auto) 81.5 %; Platelet Count 272 K/uL (130-400); RDW Coefficient of Variation 15.5 % (11.5-14.5); RDW Standard Deviation 49.5 fL (36.4-46.3); Red Blood Count 4.62 M/uL (4.20-5.40); White Blood Count 13.22 K/ul (4.8-10.8)
[2023-11-04 05:18] LABS: Allen Test Pos (Pos)
[2023-11-04 05:23] LABS: Albumin Globulin Ratio 1.1 (0.9-2); Albumin Level 3.5 gm/dl (3.4-5.0); BUN Creatinine Ratio 17.6 (10-20); Bilirubin,Total 1.1 mg/dl (0.2-1.0); Calcium 9.8 mg/dl (8.6-10.3); Creatinine Clr Calc Pharmacy 48.9 ml/min; Est GFR (African American) 41.2 ml/min; Est GFR (Non-African American) 35.6 ml/min; Globulin 3.3 gm/dl (2.5-4.0); Magnesium 1.7 mg/dl (1.7-2.4); Potassium 4.3 mmol/L (3.5-5.1); Total Protein 6.8 gm/dl (6.0-8.3)
[2023-11-04 05:29] LABS: Troponin I High Sensitivity 8.9 pg/ml (0-14)
[2023-11-04] MEDS: NALOXONE HCL 0.4 MG/1 ML VIAL/CARP IV STA (05:32)
[2023-11-04 05:38] LABS: Thyroid Stimulating Hormone 2.697 uIu/ml (0.300-4.500)
--- NOTE | 2023-11-04 05:38 | Emergency Department Note ---
Impression & Plan Altered mental status, Vomiting, Abdominal pain, Lung cancer metastatic to brain, Pneumonia, Polypharmacy, Hypotension ED Provider Note ED Provider Note NAME: SEAN GOLDMAN AGE:63 SEX: Female : 1960 ARRIVES VIA: EMS INFORMANT: Patient ED PROVIDER(s): Beatrice Roberts DO CHIEF COMPLAINT: Altered mental status, vomiting HPI: This is a 63-year-old female brought in by EMS due to concern for altered mental status and vomiting. Patient was at home with family who reports she was not acting appropriately, was moaning, and they found her covered in vomit in bed. Patient intermittently will answer yes/no questions however is unable to provide any additional history, moans when you palpate the abdomen. Family states she was recently diagnosed with metastatic lung cancer with mets to the brain. They states she has not yet started chemo or radiation and she does continue to smoke. He states she does not use oxygen at home, does use MDI/nebs. They state patient was recently started on Ambien to help with sleep. She also takes several pain medications. They state she was also started on blood thinners recently after she was diagnosed with A-fib. Family states she has fallen several times since being discharged home on blood thinners. They state over the course of the last 4 to 5 days she has had intermittent episodes of confusion, but tonight when they found her she was worse. PAST MEDICAL HISTORY:See Below PAST SURGICAL HISTORY:See Below FAMILY HISTORY:See Below SOCIAL HISTORY:See Below HOME MEDICATIONS:See Below ALLERGIES:See Below VITALS:See Below PHYSICAL EXAMINATION: GENERAL: alert, unwell appearing, well nourished, no distress, non-toxic EYE EXAM: normal conjunctiva, PERRL and EOM's grossly intact OROPHARYNX: no exudate, no erythema, lips, buccal mucosa, and tongue normal and mucous membranes are moist NECK: supple, no nuchal rigidity, no adenopathy, non-tender LUNGS: Clear to auscultation. Normal chest wall mechanics, no w/r/r HEART: no murmurs, S1 normal and S2 normal ABDOMEN: abdomen soft, non-tender, normo-active bowel sounds, no masses, no rebound or guarding. BACK: Back is symmetrical on inspection and there is no deformity, no midline tenderness, no CVA tenderness. SKIN: no rashes, petechiae, orbruising UPPER EXTREMITIES: upper extremities are grossly normal. FROM, nml pulses b/l. LOWER EXTREMITIES: No pitting edema. FROM, nml pulses b/l. NEURO EXAM: Moans, occasionally will answer yes/no questions, cranial nerves II- XII grossly intact, normal speech, no facial droop,nogross weakness of arms, no gross weakness of legs. Gross sensation intact. No ataxia. Vital Signs: reviewed and remarkable Differential Diagnosis: Polypharmacy, medication ADR, ICH, worsening brain metastases, pneumonia, aspiration, HERSON, UTI, bowel obstruction, perforation, GI bleed, as well as others were considered MEDICAL DECISION MAKING: This is a 63-year-old female who presents emergency department via EMS after family found her covered in vomit and with altered mental status. Patient brought in by EMS. She was initially afebrile and vital signs stable. She would respond intermittently to questions although seem to give different answers at various times to the same question was not a reliable historian. She did moan and wince with palpation of the abdomen. Labs drawn and sent, IV established, EKG and chest ray performed bedside interpreted by me and patient monitor on telemetry. She was started on gentle IV fluid hydration. An ABG was drawn and sent due to history of COPD and did not reveal any significant hypercapnia. Patient was given a small dose of Narcan due to family's reports that she takes several pain medications for ongoing and chronic pain. Patient was more alert and responsive, and did have an episode of vomiting following the administration of Narcan. She was given IV Zofran following this. Patient then sent for CT of the head, chest, abdomen and pelvis. Case was discussed with hospitalist for additional evaluation and management while awaiting formal interpretation of the CTs. Patient then developed a fever. In light of this blood cultures, lactic acid, and procalcitonin added. IV vancomycin and IV Zofran was ordered. Patient then noted to have an episode of hypotension. Initial maintenance rate IV fluids were opened up to a fluid bolus with improvement of the blood pressure. A second liter bag was added to her second IV site additionally and patient hydrated to achieve 30 mL/KG based on ideal body weight for volume resuscitation in case of evolving sepsis. Consultation(s): 0634: Discussed with Dr. Claros, [facility] hospitalist team, for additional evaluation and management. ER Treatment Provided: See below 0725: Nursing staff states patient now has a fever. She has been more awake since receiving Narcan earlier prior to going to CT. 0826: Hypotension now noted on repeat blood pressure check. I opened up IV fluids on the patient at bedside and blood pressure began to improve. I did hang a second liter and started it through the second IV site. I updated nursing staff. Will give additional IV fluids as I suspect patient possibly with evolving sepsis given fever and infectious changes noted on imaging. Patient is arousable to voice and painful stimuli. After fever had been noted earlier, patient given IV Tylenol, IV vancomycin, and IV Zofran after blood cultures, procalcitonin, and lactic acid were added and drawn. Diagnostics Interpreted By Me: -ECG: Normal sinus at 93, normal axis, normal intervals, no acute ST/T wave changes -Cardiac Monitoring: An order was placed for continuous cardiac monitoring. The monitor shows a rate of 99 with normal sinus rhythm. -Laboratory studies: As stated above and show below. -Imaging studies: Chest x-ray: Cardiomegaly noted, mass seen in left lung, no obvious pleural effusion, left diaphragm appears obscured from soft tissue shadowing, no pneumothorax Triage Nursing Note Reviewed Prior/Outside Records Reviewed -recent discharge summary from October 25, 2023 reviewed Critical Care: Critical care of 42 min performed to assess and manage high likelihood of life- threatening altered mental status and hypotension, involving labs and imaging performed with assessment to evaluate altered mental status and hypotension diagnosis with frequent reassessment. This time includes bedside time, treatment discussions with patient/family/consultants, documentation time and excludes procedure time. Past Med/Surg History Medical History Paroxysmal atrial fibrillation Takotsubo cardiomyopathy history of Takotsubo cardiomyopathy per [facility] Aortic stenosis mild to moderate on 05/2023 echo (DAVIS 1.0 cm2, mean PG 15 mmHg) Aneurysmal dilatation AAA, 3.4 cm History of COVID-19 07/2023 Lumbar disc herniation Peripheral neuropathy bilateral legs Diabetes mellitus, type 2 Hx of deep venous thrombosis years ago Anxiety Coronary artery disease s/p 5 stents, last in 2018 Onychomycosis Hypotension still occurring occasionally Hypertensive urgency Hypothyroid COPD (chronic obstructive pulmonary disease) CVD (cardiovascular disease) History of TIA (transient ischemic attack) 2018, no deficits History of myocardial infarction x 5 Surgical History History of cardiac cath x 5 stents,between 2015- 2018, done in [place] History of cholecystectomy History of section History of coronary artery stent placement Family History Mother Myocardial infarction Daughter Myocardial infarction Denies family history of Ovarian cancer Prostate cancer Breast cancer Colorectal cancer Social History Smoking Status: Current every day smoker Tobacco Type: Cigarettes Cigarettes Per Day: 1 pk; Second Hand Exposure: Yes; Hx Alcohol Use: No Hx Substance Use: No Preferred Language: Armenian Communication Ability: Effective Branch Office Administrator Required: No Beliefs That Will Affect Care: None Current Living Situation: Spouse current occupational status: disabled Feels Safe at Home: Yes caffeine: Yes (Coffee) Dental Care, Regularly: No Physical Activity Frequency: Daily Physical Activity Frequency Comment: Daily housework/activites Seatbelt Use: always Sunscreen Use: No Assistive Devices: Nebulizer, Walker and Other Allergies Allergies Allergy/AdvReac Type Severity Reaction Status Date / Time latex Allergy Unknown skin Verified 10/28/23 09:57 itching Influenza Virus Vaccines AdvReac Unknown developed Verified 10/28/23 09:57 blood clots vaccine adjuvant system, AdvReac blood clots Verified 10/28/23 09:57 [id number] liposomal [From Shingrix (PF)] varicella-zoster virus AdvReac blood clots Verified 10/28/23 09:57 glycoprotein E, recombinant [From Shingrix (PF)] Home Meds Home Medications Medication Instructions Recorded Confirmed aspirin 81 mg tablet,delayed 81 mg PO QAM 01/09/20 11/04/23 release (Adult Low Dose Aspirin) levothyroxine 50 mcg tablet 50 mcg PO QAM 01/09/20 11/04/23 (Synthroid) levocetirizine 5 mg tablet (Xyzal) 5 mg PO DAILY PRN allergies 05/26/23 11/04/23 clopidogrel 75 mg tablet (Plavix) 75 mg PO QAM 09/17/23 11/04/23 nicotine 1 patch transdermal DAILY 09/17/23 11/04/23 21mg/24hr-14mg/24hr-7mg/24hr daily transderm patches,sequentl olanzapine 2.5 mg tablet 2.5 mg PO UD PRN n/v 11/04/23 11/04/23 zolpidem 5 mg tablet 5 mg PO UD PRN Sleep 11/04/23 11/04/23 Previous Rx's Medication Instructions Recorded nitroglycerin 0.4 mg sublingual 0.4 mg sublingual Q5M PRN chest 01/14/23 tablet pain #30 tabs Wheeled Walker #1 ea 06/16/23 clonidine HCl 0.1 mg tablet 0.1 mg PO BID #180 tabs 06/18/23 pantoprazole 40 mg tablet,delayed 40 mg PO QAM #90 tabs 06/18/23 release atorvastatin 40 mg tablet 40 mg PO HS #90 tabs 07/23/23 albuterol sulfate 90 mcg/actuation 2 puff inhalation QID PRN 08/23/23 aerosol inhaler shortness of breath or wheezing #6.7 grams pregabalin 150 mg capsule (Lyrica) 150 mg PO TID #90 caps 10/01/23 apixaban 5 mg tablet (Eliquis) 5 mg PO BID #60 tabs 10/25/23 budesonide 0.5 mg/2 mL suspension 0.5 mg (2 mL) NEB BIDR #60 doses 10/25/23 for nebulization diltiazem HCl 180 mg 180 mg PO QAM #30 caps 10/25/23 capsule,extended release 24 hr isosorbide mononitrate 30 mg 30 mg PO QAM #30 tabs 10/25/23 tablet,extended release 24 hr lisinopril 20 mg tablet 20 mg PO QAM #30 tabs 10/25/23 prednisone 10 mg tablet 10 mg PO DIRECTED #40 tabs 10/25/23 umeclidinium 62.5 mcg/actuation 1 inh inhalation DAILY #30 ea 10/25/23 blister powder for inhalation (Incruse Ellipta) oxycodone 20 mg tablet 20 mg PO TID PRN pain #90 tabs 10/26/23 formoterol fumarate 20 mcg/2 mL 20 mcg (2 mL) inhalation BIDR #60 10/27/23 solution for nebulization doses (Perforomist) metformin 500 mg tablet 500 mg PO BID #60 tabs 10/27/23 blood sugar diagnostic (OneTouch #100 ea 10/28/23 Ultra Test strips) blood-glucose meter (OneTouch #1 ea 10/28/23 Ultra2 Meter) lancets 33 gauge (OneTouch Delica #100 ea 10/28/23 Plus Lancet) lorazepam 1 mg tablet 1 mg PO TID PRN anxiety, cancer 10/28/23 #90 tabs ondansetron HCl 4 mg tablet 4 mg PO QID PRN nausea and 10/28/23 vomiting #120 tabs Results & Data (ED) Vital Signs Vital Signs - 24 hr 11/04/23 04:18 11/04/23 04:18 11/04/23 04:41 Temperature 36.6 C Temperature Source Oral Pulse Rate 97 H 99 H Pulse Rate from SpO2 Sensor Pulse Rhythm Regular Pulse Strength Normal Respiratory Rate 22 Respiratory Effort / Characteristics Non-Labored Spontaneous Respiratory Depth Normal Respiratory Pattern Regular Blood Pressure 121/76 Blood Pressure Mean 91 Blood Pressure Position Sitting Pulse Oximetry 97 97 Oxygen Delivery Method Nasal Cannula Nasal Cannula Oxygen Flow Rate 2 2 Sepsis Recent Fever Within 48 Hours No Sepsis New/Unexplained Change in Mental Status N/A Sepsis Action Taken by Nursing No Action Required 11/04/23 04:42 11/04/23 05:00 11/04/23 05:30 Temperature Temperature Source Pulse Rate 99 H 91 H 91 H Pulse Rate from SpO2 Sensor 98 H 91 H 90 Pulse Rhythm Pulse Strength Respiratory Rate 23 21 22 Respiratory Effort / Characteristics Respiratory Depth Respiratory Pattern Blood Pressure 143/83 H Blood Pressure Mean 103 Blood Pressure Position Pulse Oximetry 97 93 95 Oxygen Delivery Method Nasal Cannula Oxymask Oxymask Oxygen Flow Rate 2 5 6 Sepsis Recent Fever Within 48 Hours Sepsis New/Unexplained Change in Mental Status Sepsis Action Taken by Nursing 11/04/23 06:10 11/04/23 06:30 Temperature Temperature Source Pulse Rate 103 H 98 H Pulse Rate from SpO2 Sensor 98 H Pulse Rhythm Pulse Strength Respiratory Rate 24 24 Respiratory Effort / Characteristics Respiratory Depth Respiratory Pattern Blood Pressure 143/81 H 105/78 Blood Pressure Mean 101 87 Blood Pressure Position Pulse Oximetry 95 95 Oxygen Delivery Method Oxymask Oxymask Oxygen Flow Rate 6 6 Sepsis Recent Fever Within 48 Hours Sepsis New/Unexplained Change in Mental Status Sepsis Action Taken by Nursing Laboratory Data 11/04/23 04:47 11/04/23 04:47 Lab Results 11/04/23 11/04/23 Range/Units 04:47 06:16 WBC 13.22 H (4.8-10.8) K/ul RBC 4.62 (4.20-5.40) M/uL Hgb 13.0 (12.0-16.0) g/dl Hct 40.5 (37.0-47.0) % MCV 87.7 (80.0-100.0) fL MCH 28.1 (25.0-34.0) pg MCHC 32.1 (32.0-36.0) g/dL RDW Std Deviation 49.5 H (36.4-46.3) fL RDW Coeff of Chanel 15.5 H (11.5-14.5) % Plt Count 272 (130-400) K/uL MPV 10.6 (9.4-12.4) fL Immature Gran % (Auto) 1.7 % Neut % (Auto) 81.5 % Lymph % (Auto) 9.3 % [place] % (Auto) 6.4 % Eos % (Auto) 0.8 % Baso % (Auto) 0.3 % Neut # (Auto) 10.78 H (1.40-6.50) K/uL Lymph # (Auto) 1.23 (1.20-3.40) K/uL [place] # (Auto) 0.84 H (0.11-0.59) K/uL Eos # (Auto) 0.10 (0.00-0.50) K/uL Baso # (Auto) 0.04 (0.00-0.20) K/uL Immature Gran # (Auto) 0.23 H (0.01-0.20) K/uL PT 10.9 (9.0-12.0) Seconds INR 1.0 (0.9-1.1) ABG pH 7.47 H (7.35-7.45) ABG pCO2 46 (35-46) mmHg ABG pO2 70 L (80-95) mmHg ABG HCO3 34 H (19-24) mmol/L ABG O2 Saturation 95.6 H (90-95) % ABG Base Excess 8.6 H (-9-1.8) mEq/L Naun Test Pos (Pos) Oxygen Given 2L Sodium 130 L (136-145) mmol/L Potassium 4.3 (3.5-5.1) mmol/L Chloride 87 L (98-107) mmol/L Carbon Dioxide 34 H (21-32) mmol/L Anion Gap 9 (3-11) BUN 27 H (6-23) mg/dl Creatinine 1.53 H (0.6-1.2) mg/dl Est Cr Clr Drug Dosing 48.9 ml/min Est GFR ( Amer) 41.2 ml/min Est GFR (Non-Af Amer) 35.6 ml/min BUN/Creatinine Ratio 17.6 (10-20) Glucose 160 H (70-99(Fasting)) mg/dl Lactate 1.7 (0.4-2.0) mmol/L Calcium 9.8 (8.6-10.3) mg/dl Magnesium 1.7 (1.7-2.4) mg/dl Total Bilirubin 1.1 H (0.2-1.0) mg/dl AST 55 H (13-39) U/L ALT 175 H (7-52) U/L Alkaline Phosphatase 167 H (34-104) U/L Troponin I High Sens 8.9 (0-14) pg/ml Total Protein 6.8 (6.0-8.3) gm/dl Albumin 3.5 (3.4-5.0) gm/dl Globulin 3.3 (2.5-4.0) gm/dl Albumin/Globulin Ratio 1.1 (0.9-2) Lipase 24 (11-82) U/L TSH 2.697 (0.300-4.500) uIu/ml Adenovirus (PCR) Not Detected (NotDetected) B. pertussis DNA (PCR) Not Detected (NotDetected) B.parapertussis DNA PCR Not Detected (NotDetected) C. pneumoniae DNA (PCR) Not Detected (NotDetected) Coronavirus OC43 (PCR) Not Detected (NotDetected) Coronavirus HKU1 (PCR) Not Detected (NotDetected) Coronavirus 229E (PCR) Not Detected (NotDetected) SARS-CoV-2 (PCR) Not Detected (NotDetected) Coronavirus NL63 (PCR) Not Detected (NotDetected) Human Metapneumovir PCR Not Detected (NotDetected) Influenza Type A (PCR) Not Detected (NotDetected) Influenza Type B (PCR) Not Detected (NotDetected) M. pneumoniae (PCR) Not Detected (NotDetected) Parainfluenza 1 (PCR) Not Detected (NotDetected) Parainfluenza 2 (PCR) Not Detected (NotDetected) Parainfluenza 3 (PCR) Not Detected (NotDetected) Parainfluenza 4 (PCR) Not Detected (NotDetected) RSV (PCR) Not Detected (NotDetected) Entero/Rhino (PCR) Not Detected (NotDetected) Administered Medications Vancomycin HCl 2,250 mg/ (Sodium Chloride) 545 mls @ 200 mls/hr IV NOW ONE Stop: 11/04/23 10:12 Last Admin: 11/04/23 08:48 Dose: 200 mls/hr Documented By: KOBY Sodium Chloride (Nss) 1,000 mls @ 999 mls/hr IV .Q1H1M [facility] Stop: 11/04/23 10:45 Last Admin: 11/04/23 08:51 Dose: 999 mls/hr Documented By: KOBY Discontinued Medications Sodium Chloride (Nss) 1,000 mls @ 125 mls/hr IV .Q8H [facility] Stop: 12/04/23 04:44 Last Admin: 11/04/23 04:48 Dose: 125 mls/hr Documented By: LEONARDO Piperacillin Sod/Tazobactam (Sod 4.5 gm/ Dextrose) 100 mls @ 200 mls/hr IV NOW ONE; Protocol Stop: 11/04/23 07:58 Last Admin: 11/04/23 08:04 Dose: 200 mls/hr Documented By: KOBY Acetaminophen (Ofirmev) 1,000 mg in 100 mls @ 400 mls/hr IV NOW STA Stop: 11/04/23 08:36 Last Admin: 11/04/23 08:54 Dose: 400 mls/hr Documented By: KOBY Ioversol (Optiray 350 500ml) 125 ml IV ONCE ONE Stop: 11/04/23 06:13 Last Admin: 11/04/23 06:12 Dose: 114 ml Documented By: ANGELO Naloxone HCl (Naloxone Hcl 0.4 Mg/1 Ml Vial/Carp) 0.4 mg IV NOW STA Stop: 11/04/23 05:26 Last Admin: 11/04/23 05:32 Dose: 0.4 mg Documented By: VERONICA Ondansetron HCl (Ondansetron Inj 2 Mg/Ml 2 Ml Vial) 4 mg IV NOW STA Stop: 11/04/23 05:39 Last Admin: 11/04/23 05:43 Dose: 4 mg Documented By: WINNIE Ondansetron HCl (Ondansetron Inj 2 Mg/Ml 2 Ml Vial) 4 mg IV NOW STA Stop: 11/04/23 07:38 Last Admin: 11/04/23 07:47 Dose: 4 mg Documented By: NRB Imaging Data Radiologist's Impression: Chest X-Ray 11/04/23 04:36 XR chest 1V portable HISTORY: Altered mental status. COMPARISON: Chest 10/25/2023. FINDINGS: The left perihilar/left lower lobe mass is again noted. Left basilar densities have progressed and may represent postobstructive pneumonitis or atelectasis. No pneumothorax. Chronic interstitial thickening. The heart is stable in size. The right lung is clear. No acute fractures. IMPRESSION: Redemonstration of the left lower lobe mass. Left basilar densities have progressed and may represent a postobstructive pneumonitis or atelectasis. ACT 112: Negative or not required by law. Electronically signed by: Junior Chan M.D. 11/04/2023 7:13 AM Abdomen/Pelvis CT 11/04/23 04:[address] WITH IV CONTRAST CT DOSE: HISTORY: abd pain, vomiting TECHNIQUE: Multiaxial CT images of the abdomen and pelvis were performed following the use of intravenous contrast. A dose lowering technique was utilized adhering to the principles of ALARA. COMPARISON STUDY: Abdomen and pelvis CTA 05/26/2023. FINDINGS: Please refer to the same day chest CTA for further evaluation of the left lower lobe mass and complete collapse of the left lower lobe. There is a small left pleural effusion. Patchy airspace opacities within the lung bases are also noted. No pneumoperitoneum. No pneumatosis. No suspicious lytic are blastic osseous lesions. Prior cholecystectomy. The punctate metallic density/surgical clips in the right hepatic lobe. There is a stable exophytic 13 mm hypodense nodule within the right hepatic lobe on image 172. This favors a benign lesion. The spleen remains mildly enlarged measuring 13 cm in length. The pancreas and adrenal glands unremarkable. Atrophic left kidney again noted containing a 2 cm cyst. Diminished enhancement of the left kidney, unchanged. The right kidney enhances normally. No hydronephrosis. Extensive calcified plaque within the abdominal aorta measuring up to 3.5 cm in diameter. This is similar to the prior study. No retroperitoneal or pelvic lymphadenopathy. The bladder, uterus, bilateral adnexa are unremarkable. Moderate fecal retention. Mildly dilated fluid-filled loops of proximal to mid small bowel measuring up to 3.5 cm in diameter. However, no definite transition point to suggest a small bowel obstruction at this time. No bowel wall thickening. Normal appendix. IMPRESSION: 1. Please refer to the same day chest CTA for further evaluation of the left lower lobe mass and complete collapse of the left lower lobe. 2. No evidence for metastatic disease within the abdomen or pelvis. 3. Mildly dilated fluid-filled loops of proximal to mid small bowel measuring up to 3.5 cm in diameter. However, no definite transition point to suggest a small bowel obstruction at this time. Therefore, this could represent an ileus or low- grade partial small bowel obstruction. 4. Additional findings as described above. ACT 112: Negative or not required by law. Electronically signed by: Junior Chan M.D. 11/04/2023 7:[address] 11/04/23 04:[address] DOSE: HISTORY: Altered mental status. TECHNIQUE: Multiaxial CT images of the head were performed without the use of intravenous contrast. Automated exposure control was utilized for this study. A dose lowering technique was utilized adhering to the principles of ALARA. Comparison: Brain MRI 10/29/2023. Findings: The paranasal sinuses and mastoid air cells are clear. Motion artifact results in suboptimal evaluation. The calvarium and skull base are intact. There is no midline shift or acute infarct. The patient's left cerebellar lesion is not clearly identified on this study likely due to the CT technique and motion artifact. No additional lesions identified within the brain. No intracranial hemorrhage. Impression: 1. No acute infarct or intracranial hemorrhage. 2. The patient's known left cerebellar lesion is not clearly identified on this study likely due to the CT technique and motion artifact. ACT 112: Negative or not required by law. Electronically signed by: Junior Chan M.D. 11/04/2023 7:26 AM Chest CTA 11/04/23 05:02 CHEST CTA for PULMONARY ARTER[address] DOSE: 3271.33 mGy.cm HISTORY: Shortness of breath. Lung cancer. TECHNIQUE: Multiaxial CT images of the chest were performed following the intravenous administration of contrast to evaluate the pulmonary arteries. 3D/Maximal intensity projection images were also obtained. Sagittal and coronal reformations were also reviewed. A dose lowering technique was utilized adhering to the principles of ALARA. COMPARISON STUDY: PET CT 09/09/2023. FINDINGS: Normal caliber thoracic aorta with no evidence for a dissection. The heart is borderline enlarged. There is a small left pleural effusion. No filling defects within the pulmonary arteries to suggest a pulmonary embolus. Moderate coronary artery calcifications. The patient's left lower lobe mass results in complete obstruction of the left lower lobe bronchus with complete collapse of the left lower lobe. This partially obscures the known left lower lobe mass which likely measures proximally 6.3 cm on image 85. This mass results in attenuation without obstruction of the left lower lobe pulmonary arteries. No mediastinal or right hilar lymphadenopathy. No pneumothorax. Emphysema again noted. There is a 9 mm irregular nodule again noted within the left upper lobe on image 154. There are few scattered patchy small groundglass and nodular airspace opacities seen throughout the lungs. This favors a mild pneumonitis. The scattered nodular densities favor a component of the inflammatory/infectious change. However, consider [address] follow-up to exclude the possibility of developing metastatic disease. Mild circumferential thickening of the esophagus. No suspicious lytic or blastic osseous lesions. IMPRESSION: 1. Interval development of complete collapse of the left lower lobe due obstruction. The left lower lobe bronchi from the patient's known left lower lobe mass. This obscures the majority of the left lower lobe mass which appears to measure up to 6.3 cm in size. 2. Small left pleural effusion. 3. Scattered patchy small groundglass and nodular airspace opacities seen throughout the lungs. This favors a mild pneumonitis. The scattered nodular densities favor a component of the inflammatory/infectious change. However, consider [address] follow-up to exclude the possibility of developing metastatic disease. 4. No evidence for a pulmonary embolus. 5. Redemonstration of a 9 mm left upper lobe nodule. This remains stable and could represent a separate primary bronchogenic malignancy. 6. Mild circumferential thickening of the esophagus. ACT 112: Negative or not required by law. Electronically signed by: Juniro Chan M.D. 11/04/2023 7:36 AM Discharge Plan Visit Data Chief Complaint: Altered Mental Status Stated Complaint: ALTERED, VOMITING, SOB ED Provider: Beatrice Roberts Discharge Problem: Altered mental status, Vomiting, Abdominal pain, Lung cancer metastatic to brain, Pneumonia, Polypharmacy, Hypotension Discharge Instructions Interventions: ED Discharge Assessment Last Done: 11/04/23 09:09
[2023-11-04 05:39] LABS: Prothrombin Time 10.9 Seconds (9.0-12.0)
[2023-11-04] MEDS: ONDANSETRON INJ 2 MG/ML 2 ML VIAL IV STA ×2 (05:43→07:47)
[2023-11-04] MEDS: OPTIRAY 350 500ml IV ONE (06:12)
--- NOTE | 2023-11-04 07:15 | XRay Report ---
XR chest 1V portable HISTORY: Altered mental status. COMPARISON: Chest 10/25/2023. FINDINGS: The left perihilar/left lower lobe mass is again noted. Left basilar densities have progres sed and may represent postobstructive pneumonitis or atelectasis. No pneumothorax. Chronic interstiti al thickening. The heart is stable in size. The right lung is clear. No acute fractures. IMPRESSION: Redemonstration of the left lower lobe mass. Left basilar densities have progressed and may represent a postobstructive pneumonitis or atelectasis. ACT 112: Negative or not required by law. Electronically signed by: Junior Chan M.D. 11/04/2023 7:13 AM
--- NOTE | 2023-11-04 07:22 | History & Physical Report ---
Date of Service November 04, 2023 Assessment & Plan (1) Altered mental status: Plan: Patient with somnolence, vomiting. Withdrawing all extremities to pain, PERRL. Ddx to include infection, HERSON, medication effects, possible CVA? worsening metastatic disease or bleeding? -Admit to PCU -Maintain aspiration precautions and fall precautions -Check ammonia, UA, PO4, Procalcitonin -Consider MRI brain if mental status worsens -LR at 125mL/hr x 2L -Zofran PRN nausea -Holding pain medication, Lyrica -Holding Eliquis, ASA and Plavix for now until CT head is read -Repeat chemistry at 14:00 today (2) Lung cancer metastatic to brain: Plan: Patient is to follow with Oncology next week to initiate treatment (3) Paroxysmal atrial fibrillation: Plan: -Hold Apixaban for now pending results of head CT -Continue Diltiazem (4) Uncontrolled hypertension: Plan: Blood pressure well controlled today, borderline low at 105/78 -Continue Clonidine -Continue Isosorbide (5) Reflux esophagitis: Plan: -Continue Protonix (6) Hypothyroid: Plan: -Continue Synthroid (7) COPD (chronic obstructive pulmonary disease): Plan: Diffuse scattered wheezing. Patient on Oxymask 6L/min with adequate oxygenation -DuoNeb q 4 hours -Albuterol q 2 hours PRN -Continue supplemental O2 - goal saturation 88-92% -Contineu Incruse Ellipta -Continue Formoterol -Continue Budesonide -Complete steroid taper from prior hospital discharge - patient has 3 days of Prednisone left (8) CVD (cardiovascular disease): Plan: Patient on ASA, Plavix, Atorvastatin. 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 She was admitted to [facility] from 10/21 - 10/24. Patient was admitted with hypertension and new onset atrial fibrillation following an outpatient bronchoscopy. She was treated with anti-hypertensives and heparin gtt. She had an EBUS with biopsy performed by Dr. Lilly on 10/24 - pathology revealed small cell lung carcinoma. Brain MRI 10/28 confirmed presence of 0.9cm rim enhancing lesion suggestive of solitary brain metastasis. She is to be seen next week by Oncology to start chemotherapy and XRT. Patient's blood pressure medications were adjusted - she was continued on Clonidine and Diltiazem was changed to ER. Lisinopril was added and Isosorbide and Clonidine were continued. Patient was also recently started on Ambien History today obtained by at the bedside as patient is unable to provide details. She has been having intermittent episodes of confusion. states that her memory is poor at times. She has had multiple falls over the last week as well with the last fall being this evening - no head trauma tonight. Her states that she was more confused today. She was groggy in the evening but still took her PM medications including her sleeping pill. She went to bed around 9 PM. Her came to bed around 01:00 and patient was restless, "fussing" and moaning. She had multiple episodes of vomiting. reports she has been constipated. He purchased a Fleets enema but patient has not used it yet. Allergies Allergy/AdvReac Type Severity Reaction Status Date / Time latex Allergy Unknown skin Verified 10/28/23 09:57 itching Influenza Virus Vaccines AdvReac Unknown developed Verified 10/28/23 09:57 blood clots vaccine adjuvant system, AdvReac blood clots Verified 10/28/23 09:57 [id number] liposomal [From Shingrix (PF)] varicella-zoster virus AdvReac blood clots Verified 10/28/23 09:57 glycoprotein E, recombinant [From Shingrix (PF)] Home Medications Medication Instructions Recorded Confirmed Type aspirin 81 mg tablet,delayed 81 mg PO QAM 01/09/20 10/28/23 History release (Adult Low Dose Aspirin) levothyroxine 50 mcg tablet 50 mcg PO QAM 01/09/20 10/28/23 History (Synthroid) nitroglycerin 0.4 mg sublingual 0.4 mg sublingual Q5M PRN chest 01/14/23 10/28/23 Rx tablet pain #30 tabs levocetirizine 5 mg tablet (Xyzal) 5 mg PO DAILY PRN allergies 05/26/23 10/28/23 History Wheeled Walker #1 ea 06/16/23 10/28/23 Rx clonidine HCl 0.1 mg tablet 0.1 mg PO BID #180 tabs 06/18/23 10/28/23 Rx pantoprazole 40 mg tablet,delayed 40 mg PO QAM #90 tabs 06/18/23 10/28/23 Rx release atorvastatin 40 mg tablet 40 mg PO HS #90 tabs 07/23/23 10/28/23 Rx albuterol sulfate 90 mcg/actuation 2 puff inhalation QID PRN 08/23/23 10/28/23 Rx aerosol inhaler shortness of breath or wheezing #6.7 grams clopidogrel 75 mg tablet (Plavix) 75 mg PO QAM 09/17/23 10/28/23 History nicotine 1 patch transdermal DAILY 09/17/23 10/28/23 History 21mg/24hr-14mg/24hr-7mg/24hr daily transderm patches,sequentl pregabalin 150 mg capsule (Lyrica) 150 mg PO TID #90 caps 10/01/23 10/28/23 Rx apixaban 5 mg tablet (Eliquis) 5 mg PO BID #60 tabs 10/25/23 10/28/23 Rx budesonide 0.5 mg/2 mL suspension 0.5 mg (2 mL) NEB BIDR #60 doses 10/25/23 10/28/23 Rx for nebulization diltiazem HCl 180 mg 180 mg PO QAM #30 caps 10/25/23 10/28/23 Rx capsule,extended release 24 hr isosorbide mononitrate 30 mg 30 mg PO QAM #30 tabs 10/25/23 10/28/23 Rx tablet,extended release 24 hr lisinopril 20 mg tablet 20 mg PO QAM #30 tabs 10/25/23 10/28/23 Rx prednisone 10 mg tablet 10 mg PO DIRECTED #40 tabs 10/25/23 10/28/23 Rx umeclidinium 62.5 mcg/actuation 1 inh inhalation DAILY #30 ea 10/25/23 10/28/23 Rx blister powder for inhalation (Incruse Ellipta) oxycodone 20 mg tablet 20 mg PO TID PRN pain #90 tabs 10/26/23 10/28/23 Rx formoterol fumarate 20 mcg/2 mL 20 mcg (2 mL) inhalation BIDR #60 10/27/23 10/28/23 Rx solution for nebulization doses (Perforomist) metformin 500 mg tablet 500 mg PO BID #60 tabs 10/27/23 10/28/23 Rx blood sugar diagnostic (OneTouch #100 ea 10/28/23 10/28/23 Rx Ultra Test strips) blood-glucose meter (OneTouch #1 ea 10/28/23 10/28/23 Rx Ultra2 Meter) lancets 33 gauge (OneTouch Delica #100 ea 10/28/23 10/28/23 Rx Plus Lancet) lorazepam 1 mg tablet 1 mg PO TID PRN anxiety, cancer 10/28/23 10/28/23 Rx #90 tabs ondansetron HCl 4 mg tablet 4 mg PO QID PRN nausea and 10/28/23 10/28/23 Rx vomiting #120 tabs Past Med/Surg History Medical History Paroxysmal atrial fibrillation Takotsubo cardiomyopathy history of Takotsubo cardiomyopathy per [facility] Aortic stenosis mild to moderate on 05/2023 echo (DAVIS 1.0 cm2, mean PG 15 mmHg) Aneurysmal dilatation AAA, 3.4 cm History of COVID-19 07/2023 Lumbar disc herniation Peripheral neuropathy bilateral legs Diabetes mellitus, type 2 Hx of deep venous thrombosis years ago Anxiety Coronary artery disease s/p 5 stents, last in 2018 Onychomycosis Hypotension still occurring occasionally Hypertensive urgency Hypothyroid COPD (chronic obstructive pulmonary disease) CVD (cardiovascular disease) History of TIA (transient ischemic attack) 2018, no deficits History of myocardial infarction x 5 Surgical History History of cardiac cath x 5 stents,between 2014- 2018, done in [place] History of cholecystectomy History of section History of coronary artery stent placement Family History Mother Myocardial infarction Daughter Myocardial infarction Denies family history of Ovarian cancer Prostate cancer Breast cancer Colorectal cancer Social History Smoking Status: Current every day smoker Tobacco Type: Cigarettes Cigarettes Per Day: 1 pk; Second Hand Exposure: Yes; Hx Alcohol Use: No Hx Substance Use: No Preferred Language: Lithuanian Communication Ability: Effective Plane Captain Required: No Beliefs That Will Affect Care: None Current Living Situation: Spouse current occupational status: disabled Feels Safe at Home: Yes caffeine: Yes (Coffee) Dental Care, Regularly: No Physical Activity Frequency: Daily Physical Activity Frequency Comment: Daily housework/activites Seatbelt Use: always Sunscreen Use: No Assistive Devices: Nebulizer, Walker and Other Review of Systems Review of Systems: All systems reviewed & are unremarkable except as noted in HPI & below Physical Exam Physical Exam: General: patient ill in appearance, somnolent, opens eyes to verbal and noxious stimuli, moaning but not answering questions or following commands. Skin: warm, dry, intact, no rashes or lesions HEENT: NC/AT, PERRL, anicteric sclera, conjunctiva without injection, external ear normal to inspection and nontender, nares patent, dry mucus membranes, dentition intact, no oropharyngeal lesions, neck supple, trachea midline, no LAD, no thyromegaly, no JVD Heart: +S1/S2, regular, no m/r/g Lungs: equal air entry bilaterally, scattered end-expiratory wheezing, diminished breath sounds in left base Abd: +BS, soft, mildly distended, appears to be tender - patient grimaces with abdominal palpation Ext: warm, 2+ pulses in UE/LE bilaterally, no clubbing/cyanosis, edema of LLE Neuro: nonfocal, patient AA&O x 4, speech intact, no facial droop, moving all extremities on command with equal strength 5/5 Results & Data Results & Data Vital Signs (Past 12 Hours) Vital Signs Temp Pulse Resp BP Pulse Ox O2 Del Method O2 Flow Rate 11/04/23 06:30 98 H 24 105/78 95 Oxymask 6 11/04/23 06:10 103 H 24 143/81 H 95 Oxymask 6 11/04/23 05:30 91 H 22 143/83 H 95 Oxymask 6 11/04/23 05:00 91 H 21 93 Oxymask 5 11/04/23 04:42 99 H 23 97 Nasal Cannula 2 11/04/23 04:41 99 H 11/04/23 04:18 97 Nasal Cannula 2 11/04/23 04:18 36.6 C 97 H 22 121/76 97 Nasal Cannula 2 Laboratory Results Laboratory Results WBC 13.22 K/ul (4.8-10.8) H 11/04/23 04:47 RBC 4.62 M/uL (4.20-5.40) 11/04/23 04:47 Hgb 13.0 g/dl (12.0-16.0) 11/04/23 04:47 Hct 40.5 % (37.0-47.0) 11/04/23 04:47 MCV 87.7 fL (80.0-100.0) 11/04/23 04:47 MCH 28.1 pg (25.0-34.0) 11/04/23 04:47 MCHC 32.1 g/dL (32.0-36.0) 11/04/23 04:47 RDW Std Deviation 49.5 fL (36.4-46.3) H 11/04/23 04:47 RDW Coeff of Chanel 15.5 % (11.5-14.5) H 11/04/23 04:47 Plt Count 272 K/uL (130-400) 11/04/23 04:47 MPV 10.6 fL (9.4-12.4) 11/04/23 04:47 Immature Gran % (Auto) 1.7 % 11/04/23 04:47 Neut % (Auto) 81.5 % 11/04/23 04:47 Lymph % (Auto) 9.3 % 11/04/23 04:47 [place] % (Auto) 6.4 % 11/04/23 04:47 Eos % (Auto) 0.8 % 11/04/23 04:47 Baso % (Auto) 0.3 % 11/04/23 04:47 Neut # (Auto) 10.78 K/uL (1.40-6.50) H 11/04/23 04:47 Lymph # (Auto) 1.23 K/uL (1.20-3.40) 11/04/23 04:47 [place] # (Auto) 0.84 K/uL (0.11-0.59) H 11/04/23 04:47 Eos # (Auto) 0.10 K/uL (0.00-0.50) 11/04/23 04:47 Baso # (Auto) 0.04 K/uL (0.00-0.20) 11/04/23 04:47 Immature Gran # (Auto) 0.23 K/uL (0.01-0.20) H 11/04/23 04:47 PT 10.9 Seconds (9.0-12.0) 11/04/23 04:47 INR 1.0 (0.9-1.1) 11/04/23 04:47 ABG pH 7.47 (7.35-7.45) H 11/04/23 04:47 ABG pCO2 46 mmHg (35-46) 11/04/23 04:47 ABG pO2 70 mmHg (80-95) L 11/04/23 04:47 ABG HCO3 34 mmol/L (19-24) H 11/04/23 04:47 ABG O2 Saturation 95.6 % (90-95) H 11/04/23 04:47 ABG Base Excess 8.6 mEq/L (-9-1.8) H 11/04/23 04:47 Naun Test Pos (Pos) 11/04/23 04:47 Oxygen Given 2L 11/04/23 04:47 Sodium 130 mmol/L (136-145) L 11/04/23 04:47 Potassium 4.3 mmol/L (3.5-5.1) 11/04/23 04:47 Chloride 87 mmol/L (98-107) L 11/04/23 04:47 Carbon Dioxide 34 mmol/L (21-32) H 11/04/23 04:47 Anion Gap 9 (3-11) 11/04/23 04:47 BUN 27 mg/dl (6-23) H 11/04/23 04:47 Creatinine 1.53 mg/dl (0.6-1.2) H 11/04/23 04:47 Est Cr Clr Drug Dosing 48.9 ml/min 11/04/23 04:47 Est GFR ( Amer) 41.2 ml/min 11/04/23 04:47 Est GFR (Non-Af Amer) 35.6 ml/min 11/04/23 04:47 BUN/Creatinine Ratio 17.6 (10-20) 11/04/23 04:47 Glucose 160 mg/dl (70-99(Fasting)) H 11/04/23 04:47 Lactate 1.7 mmol/L (0.4-2.0) 11/04/23 04:47 Calcium 9.8 mg/dl (8.6-10.3) 11/04/23 04:47 Magnesium 1.7 mg/dl (1.7-2.4) 11/04/23 04:47 Total Bilirubin 1.1 mg/dl (0.2-1.0) H 11/04/23 04:47 AST 55 U/L (13-39) H 11/04/23 04:47 ALT 175 U/L (7-52) H 11/04/23 04:47 Alkaline Phosphatase 167 U/L (34-104) H 11/04/23 04:47 Troponin I High Sens 8.9 pg/ml (0-14) 11/04/23 04:47 Total Protein 6.8 gm/dl (6.0-8.3) 11/04/23 04:47 Albumin 3.5 gm/dl (3.4-5.0) 11/04/23 04:47 Globulin 3.3 gm/dl (2.5-4.0) 11/04/23 04:47 Albumin/Globulin Ratio 1.1 (0.9-2) 11/04/23 04:47 Lipase 24 U/L (11-82) 11/04/23 04:47 TSH 2.697 uIu/ml (0.300-4.500) 11/04/23 04:47 Code Status & VTE Plan VTE Prophylaxis Plan VTE Prophylaxis will be ordered: Yes PG Care Time/CCT Total # of Minutes Spent Total Time Spent with Patient: Total time spent is greater than 50% in coordination of care (as documented) at patient's floor/unit and/or counseling patient: Coding Level of Care Code 36726 INT INP/OBS CARE 3/75MIN Diagnoses Altered mental status R41.82 Lung cancer metastatic to brain C34.90; C79.31 Paroxysmal atrial fibrillation I48.0 Uncontrolled hypertension I10 Reflux esophagitis K21.00 Hypothyroid E03.9 COPD (chronic obstructive pulmonary disease) J44.9 CVD (cardiovascular disease) I25.10
--- NOTE | 2023-11-04 07:28 | CT Scan Report ---
HEAD CT NONCONTRAST CT DOSE: HISTORY: Altered mental status. TECHNIQUE: Multiaxial CT images of the head were performed without the use of intravenous contrast. A utomated exposure control was utilized for this study. A dose lowering technique was utilized adheri ng to the principles of ALARA. Comparison: Brain MRI 10/29/2023. Findings: The paranasal sinuses and mastoid air cells are clear. Motion artifact results in suboptima l evaluation. The calvarium and skull base are intact. There is no midline shift or acute infarct. Th e patient's left cerebellar lesion is not clearly identified on this study likely due to the CT techn ique and motion artifact. No additional lesions identified within the brain. No intracranial hemorrha ge. Impression: 1. No acute infarct or intracranial hemorrhage. 2. The patient's known left cerebellar lesion is not clearly identified on this study likely due to t he CT technique and motion artifact. ACT 112: Negative or not required by law. Electronically signed by: Junior Chan M.D. 11/04/2023 7:26 AM
[2023-11-04] MEDS ORDERED: VANCOMYCIN CONSULT ACTIVE PRN (07:29)
[2023-11-04 07:30] LABS: Adenovirus PCR Not Detected (NotDetected); Bordetella parapertussis PCR Not Detected (NotDetected); Bordetella pertussis PCR Not Detected (NotDetected); Chlamydia pneumoniae PCR Not Detected (NotDetected); Coronavirus 229E PCR Not Detected (NotDetected); Coronavirus CoV-2 (COVID19)PCR Not Detected (NotDetected); Coronavirus HKU1 PCR Not Detected (NotDetected); Coronavirus NL63 PCR Not Detected (NotDetected); Coronavirus OC43PCR Not Detected (NotDetected); Human Metapneumovirus PCR Not Detected (NotDetected); Influenza A PCR Not Detected (NotDetected); Influenza B PCR Not Detected (NotDetected); Mycoplasma pneumoniae PCR Not Detected (NotDetected); Parainfluenza Virus 1 PCR Not Detected (NotDetected); Parainfluenza Virus 2 PCR Not Detected (NotDetected); Parainfluenza Virus 3 PCR Not Detected (NotDetected); Parainfluenza Virus 4 PCR Not Detected (NotDetected); Respiratory Syncytial VirusPCR Not Detected (NotDetected); Rhinovirus/Enterovirus PCR Not Detected (NotDetected)
--- NOTE | 2023-11-04 07:38 | CT Scan Report ---
CHEST CTA for PULMONARY ARTERIES CT DOSE: 3271.33 mGy.cm HISTORY: Shortness of breath. Lung cancer. TECHNIQUE: Multiaxial CT images of the chest were performed following the intravenous administration of contrast to evaluate the pulmonary arteries. 3D/Maximal intensity projection images were also obta ined. Sagittal and coronal reformations were also reviewed. A dose lowering technique was utilized a dhering to the principles of ALARA. COMPARISON STUDY: PET CT 09/09/2023. FINDINGS: Normal caliber thoracic aorta with no evidence for a dissection. The heart is borderline en larged. There is a small left pleural effusion. No filling defects within the pulmonary arteries to s uggest a pulmonary embolus. Moderate coronary artery calcifications. The patient's left lower lobe ma ss results in complete obstruction of the left lower lobe bronchus with complete collapse of the left lower lobe. This partially obscures the known left lower lobe mass which likely measures proximally 6.3 cm on image 85. This mass results in attenuation without obstruction of the left lower lobe pulmo nary arteries. No mediastinal or right hilar lymphadenopathy. No pneumothorax. Emphysema again noted. There is a 9 mm irregular nodule again noted within the left upper lobe on image 154. There are few scattered patchy small groundglass and nodular airspace opacities seen throughout the lungs. This fav ors a mild pneumonitis. The scattered nodular densities favor a component of the inflammatory/infecti ous change. However, consider [address] follow-up to exclude the possibility of developing met astatic disease. Mild circumferential thickening of the esophagus. No suspicious lytic or blastic oss eous lesions. IMPRESSION: 1. Interval development of complete collapse of the left lower lobe due obstruction. The left lower l obe bronchi from the patient's known left lower lobe mass. This obscures the majority of the left low er lobe mass which appears to measure up to 6.3 cm in size. 2. Small left pleural effusion. 3. Scattered patchy small groundglass and nodular airspace opacities seen throughout the lungs. This favors a mild pneumonitis. The scattered nodular densities favor a component of the inflammatory/infe ctious change. However, consider [address] follow-up to exclude the possibility of developing metastatic disease. 4. No evidence for a pulmonary embolus. 5. Redemonstration of a 9 mm left upper lobe nodule. This remains stable and could represent a separa te primary bronchogenic malignancy. 6. Mild circumferential thickening of the esophagus. ACT 112: Negative or not required by law. Electronically signed by: Junior Chan M.D. 11/04/2023 7:36 AM
--- NOTE | 2023-11-04 07:45 | CT Scan Report ---
ABDOMEN AND PELVIS CT WITH IV CONTRAST CT DOSE: HISTORY: abd pain, vomiting TECHNIQUE: Multiaxial CT images of the abdomen and pelvis were performed following the use of intrave nous contrast. A dose lowering technique was utilized adhering to the principles of ALARA. COMPARISON STUDY: Abdomen and pelvis CTA 05/26/2023. FINDINGS: Please refer to the same day chest CTA for further evaluation of the left lower lobe mass a nd complete collapse of the left lower lobe. There is a small left pleural effusion. Patchy airspace opacities within the lung bases are also noted. No pneumoperitoneum. No pneumatosis. No suspicious ly tic are blastic osseous lesions. Prior cholecystectomy. The punctate metallic density/surgical clips in the right hepatic lobe. There is a stable exophytic 13 mm hypodense nodule within the right hepati c lobe on image 172. This favors a benign lesion. The spleen remains mildly enlarged measuring 13 cm in length. The pancreas and adrenal glands unremarkable. Atrophic left kidney again noted containing a 2 cm cyst. Diminished enhancement of the left kidney, unchanged. The right kidney enhances normally . No hydronephrosis. Extensive calcified plaque within the abdominal aorta measuring up to 3.5 cm in diameter. This is similar to the prior study. No retroperitoneal or pelvic lymphadenopathy. The bladd er, uterus, bilateral adnexa are unremarkable. Moderate fecal retention. Mildly dilated fluid-filled loops of proximal to mid small bowel measuring up to 3.5 cm in diameter. However, no definite transit ion point to suggest a small bowel obstruction at this time. No bowel wall thickening. Normal appendi x. IMPRESSION: 1. Please refer to the same day chest CTA for further evaluation of the left lower lobe mass and comp lete collapse of the left lower lobe. 2. No evidence for metastatic disease within the abdomen or pelvis. 3. Mildly dilated fluid-filled loops of proximal to mid small bowel measuring up to 3.5 cm in diamete r. However, no definite transition point to suggest a small bowel obstruction at this time. Therefore , this could represent an ileus or low-grade partial small bowel obstruction. 4. Additional findings as described above. ACT 112: Negative or not required by law. Electronically signed by: Junior Chan M.D. 11/04/2023 7:43 AM
[2023-11-04 08:00] LABS: Appearance Urine Clear (Clear); Bacteria Urine Automated Negative (Negative); Bilirubin Urine Negative (Negative); Blood Urine Negative (Negative); Color Urine Dark Yellow; Epithelial Cell Urine Auto >30 /lpf (0-5); Glucose Urine UA Negative (Negative); Ketones Urine Negative (Negative); Leukocyte Esterase Urine Trace (Negative); Nitrite Urine Negative (Negative); Protein Urine Negative (Negative); RBC Urine Automated 0-4 /hpf (0-4); Specific Gravity Urine 1.022 (1.000-1.030); Urobilinogen Urine Negative (Negative); pH Urine 7.5 (4.5-7.5)
[2023-11-04] MEDS: PIPERACILLIN/TAZOBACTAM 4.5 GM in DEXTROSE 5% MINI-B 100 ML IV ONE (08:04)
[2023-11-04] MEDS: VANCOMYCIN HCL 2,250 MG in SODIUM CHLORIDE 0.9% 500 ML IV ONE (08:48)
[2023-11-04] MEDS: ACETAMINOPHEN 1,000 MG/100 ML VIAL IV STA (08:54)
[2023-11-04] MEDS ORDERED: GLUCOSE 10 TAB/TUBE PO PRN (09:08)
[2023-11-04] MEDS ORDERED: ALBUTEROL 0.5% NEB SOLN 2.5 MG/0.5 ML VIAL NEB PRN (09:08)
[2023-11-04] MEDS ORDERED: DEXTROSE 50% 50 ML SYRINGE IV PRN (09:08)
[2023-11-04] MEDS ORDERED: CARBOHYDRATES FOR HYPOGLYCEMIA PO PRN (09:08)
[2023-11-04] MEDS ORDERED: LORazepam 1 MG TAB PO PRN (09:08)
[2023-11-04] MEDS ORDERED: GLUCOSE 40% GEL 15 GM TUBE PO PRN (09:08)
[2023-11-04] MEDS ORDERED: GLUCAGON FOR INJ 1 MG VIAL SQ PRN (09:08)
[2023-11-04] MEDS: LACTATED RINGER'S 1,000 ML IV SCH (10:00)
[2023-11-04 10:16] LABS: Phosphorus 5.3 mg/dl (2.5-4.9)
[2023-11-04] MEDS: FORMOTEROL 20 MCG/2 ML VIAL INH SCH (10:24)
[2023-11-04] MEDS: BUDESONIDE 0.5 MG/2 ML VIAL (PULMICORT) NEB SCH (10:24)
[2023-11-04] MEDS: ALBUT/IPRATROP 3MG/0.5MG NEB 3 ML VIAL NEB SCH (10:25)
[2023-11-04] MEDS: cloNIDine HCL 0.1 MG TAB PO SCH (11:15)
[2023-11-04] MEDS: dilTIAZem HCL 180 MG CAPCR PO SCH (11:15)
[2023-11-04] MEDS: ISOSORBIDE MONO EXTENDED REL 30 MG TABCR PO SCH (11:15)
[2023-11-04] MEDS: INSULIN ASPART PER UNIT CHARGE SC SCH ×2 (11:17→18:07)
[2023-11-04] MEDS: MAGNESIUM SULFATE / D5W 1 GM/100 ML BAG IV SCH (11:27)
--- NOTE | 2023-11-04 11:52 | Ultrasound Report ---
LEFT LOWER EXTREMITY VENOUS DOPPLER HISTORY: Left lower leg pain. ?DVT COMPARISON STUDY: None. FINDINGS: There is normal compressibility, flow, and augmentation within the left lower extremity phu p venous system. IMPRESSION: No DVT within the left lower extremity. ACT 112: Negative or not required by law. Electronically signed by: Junior Chan M.D. 11/04/2023 11:51 AM
--- NOTE | 2023-11-04 12:27 | Electrocardiogram Report ---
Test Reason : Blood Pressure : / mmHG Vent. Rate : 093 BPM Atrial Rate : 093 BPM P-R Int : 152 ms QRS Dur : 080 ms QT Int : 320 ms P-R-T Axes : 060 017 073 degrees QTc Int : 397 ms Normal sinus rhythm Nonspecific ST abnormality Abnormal ECG When compared with ECG of 24-OCT-2023 06:30, Vent. rate has increased BY 31 BPM Criteria for Septal infarct are no longer Present Confirmed by Juan Luis Arrieta ([id number]) on 11/04/2023 12:27:04 PM Referred By: Confirmed By:Juan Luis Arrieta
[2023-11-04] MEDS: PANTOprazole 40 MG TAB PO SCH (12:31)
[2023-11-04] MEDS: LEVOTHYROXINE SODIUM 50 MCG TABLET PO SCH (12:32)
[2023-11-04] MEDS: UMECLIDINIUM BROMIDE 62.5MCG/BLISTER 7 PUFFS/INHALER INH SCH (12:33)
--- NOTE | 2023-11-04 13:38 | Pharmacy Report ---
Pharmacy PK ABX Note - Date of Service November 04, 2023 - Assessment and Plan Assessment 63 year old F receiving vancomycin and zosyn for treatment of pulmonary infection. MRSA nasal pending. No other culture data. (+) HERSON (baseline SCr ~ 0.8). Day # 1 of antimicrobial therapy. Plan Vancomycin * Loading dose: 2250 mg IV x 1 * Maintenance dose: 1000 mg IV every 24 hours * Regimen is predicted to achieve target AUC/RAMSEY of 400-600 mg/L.hr. Likely will require early adjustment if renal function returns to baseline. * Will obtain a level if therapy continues beyond 48h, or sooner if worsening renal function Pharmacy will continue to follow and will adjust dose/frequency as necessary. Thank you. Pharmacy has transitioned to AUC monitoring for vancomycin. AUC/RAMSEY is the preferred PK/PD target and is associated with decreased risk of nephrotoxicity compared to traditional trough targets.
[2023-11-04] MEDS: MoRPHine SULFATE 2 MG/ML CARP IV PRN (14:48)
[2023-11-04] MEDS: PIPERACILLIN/TAZOBACTAM 4.5 GM in DEXTROSE 5% MINI-B 100 ML IV SCH (14:51)
[2023-11-04] MEDS ORDERED: Nursing to Pharmacy Communication SCH (17:15)
[2023-11-04 17:26] LABS: Albumin Level 2.8 gm/dl (3.4-5.0); BUN Creatinine Ratio 18.7 (10-20); Bilirubin Direct 0.5 mg/dl (0-0.2); Bilirubin,Total 1.3 mg/dl (0.2-1.0); Calcium 8.1 mg/dl (8.6-10.3); Creatinine Clr Calc Pharmacy 45.7 ml/min; Est GFR (African American) 40.6 ml/min; Potassium 4.2 mmol/L (3.5-5.1); Total Protein 5.5 gm/dl (6.0-8.3)
[2023-11-04] MEDS: oxyCODONE HCL 10 MG TABCR (OxyCONTIN) PO SCH (20:55)
[2023-11-05] MEDS: ACETAMINOPHEN 325 MG TAB PO PRN (05:49)
[2023-11-05] MEDS: POLYETHYLENE (MIRALAX) 17 GM PACK PO PRN (05:50)
[2023-11-05 07:20] LABS: Basophils # (auto) 0.02 K/uL (0.00-0.20); Basophils % (auto) 0.2 %; Eosinophils # (auto) 0.06 K/uL (0.00-0.50); Eosinophils % (auto) 0.5 %; Hematocrit (blood only) 36.6 % (37.0-47.0); Immature Granulocytes # (auto) 0.09 K/uL (0.01-0.20); Immature Granulocytes % (auto) 0.8 %; Lymphocytes # (auto) 0.54 K/uL (1.20-3.40); Lymphocytes % (auto) 4.6 %; Mean Corpuscular Hemoglobin 28.4 pg (25.0-34.0); Mean Corpuscular Hgb Conc 32.8 g/dL (32.0-36.0); Mean Corpuscular Volume 86.7 fL (80.0-100.0); Mean Platelet Volume 10.7 fL (9.4-12.4); Monocytes # (auto) 0.49 K/uL (0.11-0.59); Monocytes % (auto) 4.1 %; Neutrophils # (auto) 10.66 K/uL (1.40-6.50); Neutrophils % (auto) 89.8 %; Platelet Count 189 K/uL (130-400); RDW Coefficient of Variation 15.5 % (11.5-14.5); RDW Standard Deviation 49.1 fL (36.4-46.3); Red Blood Count 4.22 M/uL (4.20-5.40); White Blood Count 11.86 K/ul (4.8-10.8)
[2023-11-05 07:45] LABS: Bilirubin,Total 2.5 mg/dl (0.2-1.0)
[2023-11-05 07:46] LABS: Albumin Globulin Ratio 1.1 (0.9-2); Albumin Level 3.2 gm/dl (3.4-5.0); BUN Creatinine Ratio 18.3 (10-20); Calcium 8.4 mg/dl (8.6-10.3); Creatinine Clr Calc Pharmacy 86.3 ml/min; Est GFR (African American) 87.6 ml/min; Est GFR (Non-African American) 75.6 ml/min; Globulin 2.9 gm/dl (2.5-4.0); Total Protein 6.1 gm/dl (6.0-8.3)
--- NOTE | 2023-11-05 08:19 | Hospitalist Progress Note ---
Date of Service November 05, 2023 Assessment & Plan (1) Altered mental status: Plan: - Presented to ED with somnolence, vomiting, AMS. Narcan administered due to taking several pain medications at home, and became more alert and responsive. - Lactate WNL so no concern for tissue hypoperfusion. Procal elevated so concern for bacterial infection. Antibiotics initiated. - Head CT, abdomen and pelvis CT, and venous Doppler negative - Elevated transaminases -- Most likely secondary to sludge. Cholecystectomy in ?2019 -- Check LFTs tomorrow. Ddx to include infection, HERSON, medication effects, worsening metastatic disease or bleeding? 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 OxyContin 10 mg BID and 2 mg morphine PRN while in hospital. - Oncology consult ordered (3) Paroxysmal atrial fibrillation: Plan: Continue Apixaban and Diltiazem (4) Uncontrolled hypertension: Plan: - Blood pressure well controlled during this hospital stay - Continue Clonidine and Isosorbide (5) COPD (chronic obstructive pulmonary disease): Plan: Diffuse scattered wheezing. Patient on Oxymask 6L/min with adequate oxygenation -DuoNeb q 4 hours -Albuterol q 2 hours PRN -Continue supplemental O2 - goal saturation 88-92% -Contineu Incruse Ellipta -Continue Formoterol -Continue Budesonide -Complete steroid taper from prior hospital discharge - last day of taper 11/07/2023 (6) CVD (cardiovascular disease): Plan: Patient on ASA, Plavix, Atorvastatin. Also on Eliquis for recent AF. Continue these. -Consider DC ASA -Holding Lisinopril for now due to decline in renal function Admission and Anticipated Discharge Date Admission Date: November 04, 2023 Physical Exam Physical Exam: General: patient ill in appearance, somnolent, opens eyes to verbal and noxious stimuli, moaning but not answering questions or following commands. Skin: warm, dry, intact, no rashes or lesions Heart: Regular rate and rhythm without murmurs gallops or rubs. Lungs: equal air entry bilaterally, scattered end-expiratory wheezing, diminished breath sounds in left base. No retractions or accessory muscle use. Abd: +BS, soft, mildly distended, appears to be tender - patient grimaces with abdominal palpation Ext: warm, 2+ pulses in UE/LE bilaterally, no clubbing/cyanosis, edema of LLE Neuro: nonfocal, patient AA&O x 4, speech intact, no facial droop, moving all extremities on command with equal strength 5/5 Results & Data Results & Data Vital Signs (Past 12 Hours) Vital Signs Temp Pulse Pulse Resp BP Pulse Ox O2 Del Method 11/05/23 07:31 93 H 16 95 Nasal Cannula 11/05/23 02:45 37.2 C 91 H 18 136/89 93 Nasal Cannula 11/04/23 22:08 36.9 C 86 18 135/85 99 Room Air 11/04/23 22:00 84 11/04/23 20:36 84 18 91 Nasal Cannula O2 Flow Rate 11/05/23 07:31 4 11/05/23 02:45 3 11/04/23 22:08 11/04/23 22:00 11/04/23 20:36 4 Laboratory Results Reviewed CBC Reviewed CMP PG Care Time/CCT Total # of Minutes Spent Total Time Spent with Patient: Total time spent is greater than 50% in coordination of care (as documented) at patient's floor/unit and/or counseling patient: Coding Level of Care Code 88755 SUB INP/OBS CARE 3/50MIN Diagnoses Altered mental status R41.82 Lung cancer metastatic to brain C34.90; C79.31 Paroxysmal atrial fibrillation I48.0 Uncontrolled hypertension I10 COPD (chronic obstructive pulmonary disease) J44.9 CVD (cardiovascular disease) I25.10
[2023-11-05] MEDS: CLOPIDOGREL BISULFATE 75 MG TAB PO SCH (10:30)
[2023-11-05] MEDS: VANCOMYCIN HCL 1,000 MG in SODIUM CHLORIDE 0.9% 250 ML IV SCH ×2 (10:30→10:38)
[2023-11-05] MEDS: APIXABAN 5 MG TABLET PO SCH (10:31)
[2023-11-05] MEDS: ONDANSETRON INJ 2 MG/ML 2 ML VIAL IV PRN (13:32)
--- NOTE | 2023-11-05 17:24 | Hospitalist Progress Note ---
Date of Service November 05, 2023 Assessment & Plan (1) Altered mental status: Plan: - Presented to ED with somnolence, vomiting, AMS. Narcan administered due to taking several pain medications at home, and became more alert and responsive. - Lactate WNL so no concern for tissue hypoperfusion. Procal elevated so concern for bacterial infection. Antibiotics initiated. - Head CT, abdomen and pelvis CT, and venous Doppler negative - Elevated transaminases -- Most likely secondary to sludge. Cholecystectomy over 30 years ago. -- Check LFTs tomorrow. 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 OxyContin 10 mg BID and 2 mg morphine PRN while in hospital. - Oncology consult ordered. Patient not fit for chemo at this time due to pneumonia. (3) Paroxysmal atrial fibrillation: Plan: Continue Apixaban and Diltiazem (4) Uncontrolled hypertension: Plan: - Blood pressure well controlled during this hospital stay - Continue Clonidine and Isosorbide (5) COPD (chronic obstructive pulmonary disease): Plan: Diffuse scattered wheezing. Patient on Oxymask 6L/min with adequate oxygenation -DuoNeb q 4 hours -Albuterol q 2 hours PRN -Continue supplemental O2 - goal saturation 88-92% -Contineu Incruse Ellipta -Continue Formoterol -Continue Budesonide -Complete steroid taper from prior hospital discharge - last day of taper 11/07/2023 (6) CVD (cardiovascular disease): Plan: Patient on ASA, Plavix, Atorvastatin. Also on Eliquis for recent AF. Continue these. -Consider DC ASA -Holding Lisinopril for now due to decline in renal function Admission and Anticipated Discharge Date Admission Date: November 04, 2023 Subjective Patient seen and evaluated at bedside. She reports right upper quadrant tenderness and shortness of breath. She is still fatigued, but significantly more alert and awake compared to yesterday. She had a few episodes of vomiting in the early afternoon, which has been relieved by Zofran. The plan moving forward is difficult as obstructed left lower lobe requires chemotherapy to reduce the obstruction, however chemotherapy cannot be initiated until pneumonia has been treated. Physical Exam Physical Exam: General: No acute distress, nondiaphoretic, well-developed, well-nourished. Skin: The skin was without rashes, erythema, edema, or bruising. Cardiac: Regular rate and rhythm without murmurs gallops or rubs. Pulm: Scattered end expiratory wheezing. No retractions or accessory muscle use. SpO2 96% on 5 L. Abdominal: Positive bowel sounds x 4. Soft, nontender, without masses or organomegaly. No guarding or rebound tenderness. Neuro: A&O x3. No focal neurological deficits. Results & Data Results & Data Vital Signs (Past 12 Hours) Vital Signs Temp Pulse Pulse Resp BP Pulse Ox O2 Del Method 11/05/23 15:35 36.7 C 87 16 138/89 96 Nasal Cannula 11/05/23 14:49 85 24 96 Nasal Cannula 11/05/23 10:54 87 22 96 11/05/23 10:40 36.8 C 88 20 120/69 95 Nasal Cannula 11/05/23 08:44 36.7 C 92 H 20 138/80 97 Nasal Cannula 11/05/23 08:00 90 11/05/23 08:00 Nasal Cannula 11/05/23 07:31 93 H 16 95 Nasal Cannula O2 Flow Rate 11/05/23 15:35 5 11/05/23 14:49 3 11/05/23 10:54 4 11/05/23 10:40 4.0 11/05/23 08:44 4.0 11/05/23 08:00 11/05/23 08:00 5 11/05/23 07:31 4 Laboratory Results Reviewed CBC Reviewed CMP PG Care Time/CCT Total # of Minutes Spent Total Time Spent with Patient: Total time spent is greater than 50% in coordination of care (as documented) at patient's floor/unit and/or counseling patient: Coding Level of Care Code 92155 SUB INP/OBS CARE 3/50MIN Diagnoses Altered mental status R41.82 Lung cancer metastatic to brain C34.90; C79.31 Paroxysmal atrial fibrillation I48.0 Uncontrolled hypertension I10 COPD (chronic obstructive pulmonary disease) J44.9 CVD (cardiovascular disease) I25.10
[2023-11-05] MEDS: MoRPHine SULFATE 2 MG/ML CARP IV PRN (17:46)
[2023-11-05] MEDS: ATORVASTATIN 40 MG TAB PO SCH (20:41)
[2023-11-06] MEDS: INSULIN ASPART PER UNIT CHARGE SC SCH (05:36)
[2023-11-06 08:24] LABS: Basophils # (auto) 0.02 K/uL (0.00-0.20); Basophils % (auto) 0.2 %; Eosinophils # (auto) 0.07 K/uL (0.00-0.50); Eosinophils % (auto) 0.8 %; Hemoglobin 11.2 g/dl (12.0-16.0); Immature Granulocytes # (auto) 0.06 K/uL (0.01-0.20); Immature Granulocytes % (auto) 0.7 %; Lymphocytes # (auto) 0.62 K/uL (1.20-3.40); Lymphocytes % (auto) 7.5 %; Mean Corpuscular Hemoglobin 27.2 pg (25.0-34.0); Mean Platelet Volume 10.6 fL (9.4-12.4); Monocytes # (auto) 0.52 K/uL (0.11-0.59); Monocytes % (auto) 6.3 %; Neutrophils # (auto) 7.02 K/uL (1.40-6.50); Neutrophils % (auto) 84.5 %; Platelet Count 180 K/uL (130-400); RDW Coefficient of Variation 15.1 % (11.5-14.5); Red Blood Count 4.12 M/uL (4.20-5.40); White Blood Count 8.31 K/ul (4.8-10.8)
[2023-11-06 08:32] LABS: Albumin Level 3.3 gm/dl (3.4-5.0); BUN Creatinine Ratio 13.2 (10-20); Bilirubin,Total 1.6 mg/dl (0.2-1.0); Calcium 8.7 mg/dl (8.6-10.3); Creatinine Clr Calc Pharmacy 104.1 ml/min; Est GFR (African American) 107.1 ml/min; Est GFR (Non-African American) 92.4 ml/min; Globulin 3.2 gm/dl (2.5-4.0); Potassium 3.9 mmol/L (3.5-5.1); Total Protein 6.5 gm/dl (6.0-8.3)
--- NOTE | 2023-11-06 10:27 | Hospitalist Progress Note ---
Date of Service November 06, 2023 Assessment & Plan (1) Altered mental status: Plan: - Presented to ED with somnolence, vomiting, AMS. Narcan administered due to taking several pain medications at home, and became more alert and responsive. - Lactate WNL so no concern for tissue hypoperfusion. Procal elevated so concern for bacterial infection. Antibiotics initiated. 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 Patient not fit for chemo at this time due to pneumonia. - Plan moving forward is difficult as obstructed left lower lobe requires chemotherapy to reduce the obstruction, however chemotherapy cannot be initiated until pneumonia has been treated. (3) Paroxysmal atrial fibrillation: Plan: Continue Apixaban and Diltiazem (4) Uncontrolled hypertension: Plan: - Blood pressure well controlled during this hospital stay - Continue Clonidine and Isosorbide (5) COPD (chronic obstructive pulmonary disease): Plan: Diffuse scattered wheezing. Patient on Oxymask 6L/min with adequate oxygenation -DuoNeb q 4 hours -Albuterol q 2 hours PRN -Continue supplemental O2 - goal saturation 88-92% -Contineu Incruse Ellipta -Continue Formoterol -Continue Budesonide -Complete steroid taper from prior hospital discharge - last day of taper 11/07/2023 (6) CVD (cardiovascular disease): Plan: Patient on ASA, Plavix, Atorvastatin. Also on Eliquis for recent AF. Continue these. -Consider DC ASA -Holding Lisinopril for now due to decline in renal function Admission and Anticipated Discharge Date Admission Date: November 04, 2023 Subjective Patient seen and evaluated at bedside. She was sitting upright at the edge of the bed. The patient's outlook on her situation and her overall mood seems more depressed today compared to yesterday. She has no specific complaints on this time. She repeatedly states "I just have cancer, there's nothing I can do." The patient and her family have questions for oncology and would like to discuss her case with them, however, oncology reports they are unavailable to meet with them this weekend. Patient was very anxious and agitated, but responded well to Ativan and has been calmer and more cooperative since then. Physical Exam Physical Exam: General: No acute distress, nondiaphoretic, well-developed, well-nourished. Skin: The skin was without rashes, erythema, edema, or bruising. Cardiac: Regular rate and rhythm without murmurs gallops or rubs. Pulm: Scattered end expiratory wheezing. No retractions or accessory muscle use. SpO2 94% on room air. Abdominal: Positive bowel sounds x 4. Soft, nontender, without masses or organomegaly. No guarding or rebound tenderness. Neuro: A&O x3. No focal neurological deficits. Depressed affect. Results & Data Results & Data Vital Signs (Past 12 Hours) Vital Signs Temp Pulse Resp BP BP Pulse Ox O2 Del Method 11/06/23 07:56 94 H 20 92 Room Air 11/06/23 07:50 Nasal Cannula 11/06/23 07:15 36.8 C 105 H 24 166/84 H 94 Room Air 11/06/23 04:07 37.1 C 86 18 125/72 95 Room Air 11/05/23 23:50 37.0 C 80 18 149/79 H 92 Room Air O2 Flow Rate 11/06/23 07:56 11/06/23 07:50 5 11/06/23 07:15 11/06/23 04:07 11/05/23 23:50 Laboratory Results Reviewed CBC Reviewed CMP PG Care Time/CCT Total # of Minutes Spent Total Time Spent with Patient: Total time spent is greater than 50% in coordination of care (as documented) at patient's floor/unit and/or counseling patient: Coding Level of Care Code 17349 SUB INP/OBS CARE 3/50MIN Diagnoses Altered mental status R41.82 Lung cancer metastatic to brain C34.90; C79.31 Paroxysmal atrial fibrillation I48.0 Uncontrolled hypertension I10 COPD (chronic obstructive pulmonary disease) J44.9 CVD (cardiovascular disease) I25.10
[2023-11-06] MEDS ORDERED: LORazepam 0.5 MG TAB PO PRN (11:49)
[2023-11-06] MEDS: LORazepam 0.5 MG in SYRINGE 0.25 ML IV STA (12:09)
[2023-11-06] MEDS: oxyCODONE HCL 10 MG TABCR (OxyCONTIN) PO ONE (12:09)
[2023-11-06] MEDS ORDERED: Nursing to Pharmacy Communication SCH (13:45)
[2023-11-06] MEDS: LORazepam 1 MG TAB PO SCH (14:03)
[2023-11-06] MEDS: MoRPHine SULFATE 4 MG/ML 1 ML CARP\\VIAL IV PRN (17:01)
[2023-11-06] MEDS: MoRPHine SULFATE 2 MG/ML CARP IV PRN (19:21)
[2023-11-06] MEDS: oxyCODONE HCL 20 MG TABCR (OxyCONTIN) PO SCH (20:54)
[2023-11-06] MEDS ORDERED: ALBUT/IPRATROP 3MG/0.5MG NEB 3 ML VIAL NEB PRN (21:15)
[2023-11-07 06:13] LABS: Basophils # (auto) 0.01 K/uL (0.00-0.20); Basophils % (auto) 0.2 %; Eosinophils # (auto) 0.08 K/uL (0.00-0.50); Eosinophils % (auto) 1.4 %; Hematocrit (blood only) 33.7 % (37.0-47.0); Immature Granulocytes # (auto) 0.07 K/uL (0.01-0.20); Immature Granulocytes % (auto) 1.2 %; Lymphocytes # (auto) 0.78 K/uL (1.20-3.40); Lymphocytes % (auto) 13.8 %; Mean Corpuscular Hemoglobin 27.8 pg (25.0-34.0); Mean Corpuscular Hgb Conc 32.6 g/dL (32.0-36.0); Mean Corpuscular Volume 85.1 fL (80.0-100.0); Mean Platelet Volume 10.7 fL (9.4-12.4); Monocytes # (auto) 0.43 K/uL (0.11-0.59); Monocytes % (auto) 7.6 %; Neutrophils # (auto) 4.27 K/uL (1.40-6.50); Neutrophils % (auto) 75.8 %; Platelet Count 164 K/uL (130-400); RDW Coefficient of Variation 15.1 % (11.5-14.5); RDW Standard Deviation 46.8 fL (36.4-46.3); Red Blood Count 3.96 M/uL (4.20-5.40); White Blood Count 5.64 K/ul (4.8-10.8)
[2023-11-07] MEDS: MoRPHine SULFATE 2 MG/ML CARP IV STA (06:14)
[2023-11-07 07:06] LABS: BUN Creatinine Ratio 12.3 (10-20); Bilirubin,Total 1.1 mg/dl (0.2-1.0); Calcium 8.3 mg/dl (8.6-10.3); Creatinine Clr Calc Pharmacy 100.8 ml/min; Est GFR (African American) 108.7 ml/min; Est GFR (Non-African American) 93.8 ml/min; Potassium 3.6 mmol/L (3.5-5.1)
[2023-11-07] MEDS: predniSONE 10 MG TABLET PO SCH (08:28)
--- NOTE | 2023-11-07 15:26 | Hospitalist Progress Note ---
Date of Service November 07, 2023 Assessment & Plan (1) Altered mental status: Plan: - Presented to ED with somnolence, vomiting, AMS. Narcan administered due to taking several pain medications at home, and became more alert and responsive. - Lactate WNL so no concern for tissue hypoperfusion. Procal elevated so concern for bacterial infection. Antibiotics initiated. 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 Vanco discontinued. Continue Zosyn. - OxyContin, morphine,and Ativan while in hospital for pain and anxiety - Oncology consult ordered. Patient not fit for chemo at this time due to pneumonia. - Plan moving forward is difficult as obstructed left lower lobe requires chemotherapy to reduce the obstruction, however chemotherapy cannot be initiated until pneumonia has been treated. -- Infection has improved. No leukocytosis. (3) Paroxysmal atrial fibrillation: Plan: Continue Apixaban and Diltiazem (4) Uncontrolled hypertension: Plan: - Blood pressure well controlled during this hospital stay - Continue Clonidine and Isosorbide (5) COPD (chronic obstructive pulmonary disease): Plan: Diffuse scattered wheezing. Patient on Oxymask 6L/min with adequate oxygenation -DuoNeb q 4 hours -Albuterol q 2 hours PRN -Continue supplemental O2 - goal saturation 88-92% -Contineu Incruse Ellipta -Continue Formoterol -Continue Budesonide -Complete steroid taper from prior hospital discharge - last day of taper 11/07/2023 (6) CVD (cardiovascular disease): Plan: Patient on ASA, Plavix, Atorvastatin. Also on Eliquis for recent AF. Continue these. -Consider DC ASA -Holding Lisinopril for now due to decline in renal function Admission and Anticipated Discharge Date Admission Date: November 04, 2023 Subjective Patient seen and evaluated at bedside with [place]. She appears to be in better spirits today. She reports her pain is better controlled today, and she finally slept well last night. Oncology plans to see the patient tomorrow and can discuss the case with her and her family. Pending any decisions made during that discussion, patient could possibly be discharged home tomorrow. Physical Exam Physical Exam: General: No acute distress, nondiaphoretic, well-developed, well-nourished. Skin: The skin was without rashes, erythema, edema, or bruising. Cardiac: Regular rate and rhythm without murmurs gallops or rubs. Pulm: Scattered end expiratory wheezing and rhonchi. No retractions or accessory muscle use. SpO2 96% on room air. Abdominal: Positive bowel sounds x 4. Soft, nontender, without masses or organomegaly. No guarding or rebound tenderness. Neuro: A&O x3. No focal neurological deficits. Depressed affect. Results & Data Results & Data Vital Signs (Past 12 Hours) Vital Signs Temp Pulse Resp BP Pulse Ox O2 Del Method O2 Del Method 11/07/23 11:09 36.6 C 82 20 113/76 96 Room Air 11/07/23 11:00 Nasal Cannula 11/07/23 08:41 Room Air 11/07/23 07:38 86 20 96 Room Air 11/07/23 07:24 37.1 C 69 20 122/78 93 Room Air O2 Flow Rate 11/07/23 11:09 11/07/23 11:00 4 11/07/23 08:41 11/07/23 07:38 11/07/23 07:24 Laboratory Results Reviewed CBC Reviewed CMP Reviewed blood cultures PG Care Time/CCT Total # of Minutes Spent Total Time Spent with Patient: Total time spent is greater than 50% in coordination of care (as documented) at patient's floor/unit and/or counseling patient: Coding Level of Care Code 53045 SUB INP/OBS CARE 3/50MIN Diagnoses Altered mental status R41.82 Lung cancer metastatic to brain C34.90; C79.31 Paroxysmal atrial fibrillation I48.0 Uncontrolled hypertension I10 COPD (chronic obstructive pulmonary disease) J44.9 CVD (cardiovascular disease) I25.10
[2023-11-08 10:12] LABS: Hemoglobin 11.1 g/dl (12.0-16.0); Mean Corpuscular Hemoglobin 28.2 pg (25.0-34.0); Mean Corpuscular Hgb Conc 33.6 g/dL (32.0-36.0); Mean Corpuscular Volume 83.8 fL (80.0-100.0); Mean Platelet Volume 10.5 fL (9.4-12.4); Platelet Count 162 K/uL (130-400); RDW Coefficient of Variation 14.9 % (11.5-14.5); RDW Standard Deviation 45.2 fL (36.4-46.3); Red Blood Count 3.94 M/uL (4.20-5.40); White Blood Count 4.93 K/ul (4.8-10.8)
[2023-11-08 10:39] LABS: Potassium 3.2 mmol/L (3.5-5.1)
[2023-11-08 10:40] LABS: Albumin Level 3.2 gm/dl (3.4-5.0); BUN Creatinine Ratio 12.7 (10-20); Bilirubin,Total 1.1 mg/dl (0.2-1.0); Calcium 8.6 mg/dl (8.6-10.3); Creatinine Clr Calc Pharmacy 95.8 ml/min; Est GFR (African American) 104.3 ml/min; Globulin 3.2 gm/dl (2.5-4.0); Total Protein 6.4 gm/dl (6.0-8.3)
[2023-11-08] MEDS ORDERED: MICONAZOLE NITRATE POWDER 85 GM EXT PRN (12:38)
--- NOTE | 2023-11-08 14:49 | Discharge Summary ---
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 She was admitted to [facility] from 10/21 - 10/24. Patient was admitted with hypertension and new onset atrial fibrillation following an outpatient bronchoscopy. She was treated with anti-hypertensives and heparin gtt. She had an EBUS with biopsy performed by Dr. Lilly on 10/24 - pathology revealed small cell lung carcinoma. Brain MRI 10/28 confirmed presence of 0.9cm rim enhancing lesion suggestive of solitary brain metastasis. She is to be seen next week by Oncology to start chemotherapy and XRT. Patient's blood pressure medications were adjusted - she was continued on Clonidine and Diltiazem was changed to ER. Lisinopril was added and Isosorbide and Clonidine were continued. Patient was also recently started on Ambien History today obtained by at the bedside as patient is unable to provide details. She has been having intermittent episodes of confusion. states that her memory is poor at times. She has had multiple falls over the last week as well with the last fall being this evening - no head trauma tonight. Her states that she was more confused today. She was groggy in the evening but still took her PM medications including her sleeping pill. She went to bed around 9 PM. Her came to bed around 01:00 and patient was restless, "fussing" and moaning. She had multiple episodes of vomiting. reports she has been constipated. He purchased a Fleets enema but patient has not used it yet. Admission Exam Per Admitting Provider General: patient ill in appearance, somnolent, opens eyes to verbal and noxious stimuli, moaning but not answering questions or following commands. Skin: warm, dry, intact, no rashes or lesions HEENT: NC/AT, PERRL, anicteric sclera, conjunctiva without injection, external ear normal to inspection and nontender, nares patent, dry mucus membranes, dentition intact, no oropharyngeal lesions, neck supple, trachea midline, no LAD, no thyromegaly, no JVD Heart: +S1/S2, regular, no m/r/g Lungs: equal air entry bilaterally, scattered end-expiratory wheezing, diminished breath sounds in left base Abd: +BS, soft, mildly distended, appears to be tender - patient grimaces with abdominal palpation Ext: warm, 2+ pulses in UE/LE bilaterally, no clubbing/cyanosis, edema of LLE Neuro: nonfocal, patient AA&O x 4, speech intact, no facial droop, moving all extremities on command with equal strength 5/5 Principal Diagnosis Altered mental status Obstructed left lower lobe pneumonia Small cell lung cancer with metastatic disease to brain Discharge Exam General: No acute distress, nondiaphoretic, well-developed, well-nourished. Skin: The skin was without rashes, erythema, edema, or bruising. Cardiac: Regular rate and rhythm without murmurs gallops or rubs. Pulm: Scattered end expiratory wheezing and rhonchi. No retractions or accessory muscle use. SpO2 95% on room air. Abdominal: Positive bowel sounds x 4. Soft, nontender, without masses or organomegaly. No guarding or rebound tenderness. Neuro: A&O x3. No focal neurological deficits. Depressed affect. Discharge Data Allergies Allergy/AdvReac Type Severity Reaction Status Date / Time latex Allergy Unknown skin Verified 10/28/23 09:57 itching Influenza Virus Vaccines AdvReac Unknown developed Verified 10/28/23 09:57 blood clots vaccine adjuvant system, AdvReac blood clots Verified 10/28/23 09:57 [id number] liposomal [From Shingrix (PF)] varicella-zoster virus AdvReac blood clots Verified 10/28/23 09:57 glycoprotein E, recombinant [From Shingrix (PF)] Consultations 11/04/23 07:30 ED Decision to Admit Stat 11/04/23 10:53 Consult Oncology Routine 11/08/23 07:42 Consult Radiation Oncology Routine Ordered Studies 11/04/23 04:37 CT abd pelvis IV con only Stat CT head/brain wo con Stat 11/04/23 05:02 CT angio chest PE protocol Stat 11/04/23 09:08 US venous doppler LE LT Routine 11/08/23 11:22 CT guide rad therapy chest Routine Hospital Course (1) Altered mental status: - Presented to ED with somnolence, vomiting, AMS. Narcan administered due to taking several pain medications at home, and became more alert and responsive. - Lactate WNL so no concern for tissue hypoperfusion. Procal elevated so concern for bacterial infection. Antibiotics initiated. 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 -- Infection has improved. No leukocytosis. -- Treated with IV vancomycin and Zosyn while inpatient. Discharged on Augmentin for 10 more days. -Radiation oncology simulation on 11/08/2023 -Oncology appointment 11/09/2023 to discuss chemotherapy (3) Paroxysmal atrial fibrillation: Continue Apixaban and Diltiazem (4) Uncontrolled hypertension: - Blood pressure well controlled during this hospital stay - Continue Clonidine and Isosorbide (5) COPD (chronic obstructive pulmonary disease): - Diffuse scattered wheezing. Continue at home regimen. - Completed steroid taper on 11/07/2023 from prior hospital discharge. (6) CVD (cardiovascular disease): Patient on ASA, Plavix, Atorvastatin. Also on Eliquis for recent AF. -Held lisinopril while inpatient due to decline in renal function Total Time Total Time Spent Total Time Spent (In Minutes): Greater than 30 minutes spent completing this discharge process including direct patient care, medication reconciliation, documentation, review of labs and images, and coordination of care. Discharge Plan Discharge Items Patient Disposition: Home - Self-Care Reason For Visit: CONFUSION, SOMNOLENCE Discharge Diagnosis: Obstructed left lower lobe pneumonia Small cell lung cancer with metastasis to brain Activity: Resume your previous activity Non-emergency contact: Primary Care Provider and Oncologist Call non-emergency contact if: you have any medication questions Follow-up/Referrals: Katarina Andre MD [Primary Care Provider] - 11/15/23 11:30 am Diet: Carb Consistent or DM2 Addtl Attending Provider Instructions: Mrs. Santos, [place] were admitted to the hospital due to having an altered mental status. This was most likely secondary to an infection as well as an overdose on pain medications from home. You were given Narcan in the emergency department, and became more alert and responsive afterwards. You had a CT scan of your chest which revealed a an obstructed left lower lobe of your lung with pneumonia. You were treated with IV antibiotics while in the hospital. Additionally, you met with radiation oncology for radiation oncology simulation to set you up for your radiation treatments. Upon discharge from the hospital: * Please take your oral antibiotic (Augmentin) twice daily for 10 more days. This is to treat the pneumonia in your lungs. I have sent this prescription to your pharmacy. * You are scheduled to meet with oncology (your chemotherapy doctors) tomorrow 11/09/2023 at 9 AM. This is to have a discussion about chemotherapy. They will print out a calendar with your upcoming appointments at that time. * Radiation oncology (your radiation doctors) will call you this week with the date and time for your radiation appointments. * Please continue to follow your at-home pain management regimen as prescribed. Please return to the hospital if you experience any of the following: Confusion, syncope (passing out), worsening shortness of breath, chest pain, or severe nausea with vomiting. It was a pleasure taking care of you while you were in the hospital, Claudia Richardson PA-C Pending Studies at Discharge: No Stand-Alone Forms: My [facility] Social Shop, Smoking Cessation Medications and DC Order Prescriptions: New amoxicillin-pot clavulanate 875-125 mg tablet 1 tab PO BID Qty: 20 0RF Continued (DME) Wheeled Walker Misc See Rx Instructions .Route Qty: 1 0RF Rx Instructions: w/ a seat and hand brakes atorvastatin 40 mg tablet 40 mg PO HS Qty: 90 1RF Rx Instructions: 40 mg PO at bedtime pregabalin [Lyrica] 150 mg capsule 150 mg PO TID Qty: 90 2RF oxycodone 20 mg tablet 20 mg PO TID PRN (Reason: pain) Qty: 90 0RF metformin 500 mg tablet 500 mg PO BID Qty: 60 2RF (DME) Hospital Bed Homecare Misc See Rx Instructions .Route Qty: 1 0RF Rx Instructions: As directed (DME) Wheelchair (Manual) Device See Rx Instructions .Route Qty: 1 0RF Rx Instructions: As directed nitroglycerin 0.4 mg tablet, sublingual 0.4 mg sublingual Q5M PRN (Reason: chest pain) Qty: 30 4RF Rx Instructions: do not exceed 3 doses per episode. call 911 if ongoing chest pain. levothyroxine [Synthroid] 50 mcg tablet 50 mcg PO QAM aspirin [Adult Low Dose Aspirin] 81 mg tablet,delayed release (DR/EC) 81 mg PO QAM clonidine HCl 0.1 mg tablet 0.1 mg PO BID Qty: 180 2RF pantoprazole 40 mg tablet,delayed release (DR/EC) 40 mg PO QAM Qty: 90 2RF albuterol sulfate 90 mcg/actuation HFA aerosol inhaler 2 puff inhalation QID PRN (Reason: shortness of breath or wheezing) Qty: 6.7 3RF ondansetron HCl 4 mg tablet 4 mg PO QID PRN (Reason: nausea and vomiting) Qty: 120 5RF lorazepam 1 mg tablet 1 mg PO TID PRN (Reason: anxiety, cancer) Qty: 90 5RF (DME) OneTouch Ultra Test Strip See Rx Instructions .Route Qty: 100 0RF Rx Instructions: As directed (DME) blood-glucose meter [OneTouch Ultra2 Meter] Misc See Rx Instructions .Route Qty: 1 0RF Rx Instructions: As directed (DME) lancets [OneTouch Delica Plus Lancet] 33 gauge misc See Rx Instructions .Route Qty: 100 0RF Rx Instructions: As directed formoterol fumarate [Perforomist] 20 mcg/2 mL solution for nebulization 20 mcg inhalation BIDR Qty: 60 3RF levocetirizine [Xyzal] 5 mg tablet 5 mg PO DAILY PRN (Reason: allergies) Incruse Ellipta 62.5 mcg/actuation Blister With Device 1 inh inhalation DAILY Qty: 30 5RF diltiazem HCl 180 mg Capsule,Extended Release 24hr 180 mg PO QAM Qty: 30 5RF lisinopril 20 mg Tablet 20 mg PO QAM Qty: 30 5RF isosorbide mononitrate 30 mg Tablet Extended Release 24 Hr 30 mg PO QAM Qty: 30 5RF budesonide 0.5 mg/2 mL Suspension For Nebulization 0.5 mg NEB BIDR Qty: 60 5RF prednisone 10 mg tablet 10 mg PO DIRECTED Qty: 40 0RF Rx Instructions: see taper instructions 4 a day x 4 d>3 a day x 4 d>2 a day x 4 d>1 a day Eliquis 5 mg tablet 5 mg PO BID Qty: 60 0RF Rx Instructions: start 10/26/23 in the evening clopidogrel [Plavix] 75 mg tablet 75 mg PO QAM nicotine 21-14-7 mg/24 hr patch, TD daily, sequential 1 patch transdermal DAILY Patient Comments: patient states not currently wearing Rx Instructions: apply 1-21 mg NICOTINE PATCH daily for 28 days; follow with 1-14 mg PATCH daily for 14 days, then 1-7mg PATCH daily for 14 days transdermal olanzapine 2.5 mg tablet 2.5 mg PO UD PRN (Reason: n/v) Rx Instructions: unable to verify 11/04/23 zolpidem 5 mg tablet 5 mg PO UD PRN (Reason: Sleep) Rx Instructions: unable to verify 11/04/23 Discharge Orders: Discharge Order (Routine); Ordered 11/08/23 Ordered By: Claudia Dinh/Other Patient Handouts: Radiation Therapy Ch, Radiation Therapy Resource s, Smoking Get Help to Quit, Kicking the Smoking Habit, Taking Opioid Medicine Admission Data Admit Date/Time: 11/04/23 06:56 Attending Provider: Salo Adams Admit Provider: Nasreen Claros Primary Care Provider: Katarina Andre Other Providers: Nasreen Claros; Micaela Kidd; Juan Benítez Other Interventions: Discharge Summary Assessment (RN) Last Done: 11/08/23 14:25 Coding Level of Care Code 36151 INP/OBS DISCH >30 MIN Diagnoses Altered mental status R41.82 Lung cancer metastatic to brain C34.90; C79.31 Paroxysmal atrial fibrillation I48.0 Uncontrolled hypertension I10 COPD (chronic obstructive pulmonary disease) J44.9 CVD (cardiovascular disease) I25.10
--- NOTE | 2023-11-17 15:16 | Coding Query ---
CODING QUERY To promote full compliance with coding requirements relating to patient care, provider participation is requested in all cases of senior engineering associate uncertainty. Please assist us with the question(s) below: Clinical Indicator(s): * Vitals: Temp - 36.6/Pulse - 97/Resp - 22/Pulse Ox - 97/BP - 121/76 * WBC - 13.22 * Presented to ED with somnolence, vomiting, AMS. * Procal elevated so concern for bacterial infection. * Chest CTA from admission revealed collapsed LLL, small left pleural effusion, and mild pneumonitis * Treated with IV vancomycin and Zosyn * Discharge diagnosis: Obstructed left lower lobe pneumonia Coding Question(s): Based on the above clinical indicators, are you able to further clarify the infection as: * Pnumonia, unspecified * Bacterial pneumonia, unspecified * Pneumonia due to aspiration * Pneumonitis, unspecified * Other (please specify * Unable to determine. Physician's Response(s): this is a post obstructive pneumonia from her cancer Thank you Annika SCHAFFER
== END 2023-11-08 14:47 | disposition home or self-care (01) | DRG 194 ==
LOC: ED 04:14 → SUATTDRO 06:56 → EDINP 06:56 → INTOOBSV 06:56 → 2S 09:09 → 2N 11-07 17:26

== ENCOUNTER 2023-12-28 14:01 | Inpatient (IN) ==
--- NOTE | 2023-12-28 14:18 | Emergency Department Note ---
History of Present Illness General Chief complaint: Chest Pain Stated complaint: CHEST PAIN Time Seen by Provider: 12/28/23 14:10 Source: patient, family ( who is at the bedside who is at the bedside), RN notes reviewed and old records reviewed (Records from the cancer center where the patient was receiving treatment today) Mode of arrival: ambulatory Limitations: no limitations History of Present Illness This patient 63-year-old female with history of extensive cardiac disease with multiple stents as well as current treatment for small cell carcinoma of the lung, comes in after having chest pain. She apparently had some vague chest pain that started before the chemo but has gotten worse. She received aspirin nitro she says she feels better now without pain they did check a troponin there was elevated to 28. I did give [facility] her EKG shows some nonspecific subtle ST depressions but no acute ST segment elevation to suggest a STEMI. The patient denies any shortness of breath beyond baseline. No fever chills no fall or trauma. She says she had chest pain off and on all week. No history of PE she is on Eliquis. No fever or cough. She has some nausea and vomiting at times. Home Medications Medication Instructions Recorded Confirmed Type aspirin 81 mg tablet,delayed 81 mg PO QAM 01/09/20 12/28/23 History release (Adult Low Dose Aspirin) levothyroxine 50 mcg tablet 50 mcg PO QAM 01/09/20 12/28/23 History (Synthroid) nitroglycerin 0.4 mg sublingual 0.4 mg sublingual Q5M PRN chest 01/14/23 12/28/23 Rx tablet pain #30 tabs levocetirizine 5 mg tablet (Xyzal) 5 mg PO DAILY PRN allergies 05/26/23 12/28/23 History Wheeled Walker #1 ea 06/16/23 12/27/23 Rx clonidine HCl 0.1 mg tablet 0.1 mg PO BID #180 tabs 06/18/23 12/28/23 Rx atorvastatin 40 mg tablet 40 mg PO HS #90 tabs 07/23/23 12/28/23 Rx nicotine 1 patch transdermal DAILY 09/17/23 12/28/23 History 21mg/24hr-14mg/24hr-7mg/24hr daily transderm patches,sequentl metformin 500 mg tablet 500 mg PO BID #60 tabs 10/27/23 12/28/23 Rx blood-glucose meter (OneTouch #1 ea 10/28/23 12/27/23 Rx Ultra2 Meter) lancets 33 gauge (OneTouch Delica #100 ea 10/28/23 12/27/23 Rx Plus Lancet) ondansetron HCl 4 mg tablet 4 mg PO QID PRN nausea and 10/28/23 12/28/23 Rx vomiting #120 tabs Hospital Bed Homecare #1 ea 11/04/23 12/27/23 Rx olanzapine 2.5 mg tablet 2.5 mg PO UD PRN n/v 11/04/23 12/28/23 History zolpidem 5 mg tablet 5 mg PO UD PRN Sleep 11/04/23 12/28/23 History WHEEL MOBILITY SCOOTER #1 ea 11/08/23 12/27/23 Rx Wheelchair (Manual) #1 ea 11/08/23 12/27/23 Rx lorazepam 1 mg tablet 1 mg PO TID PRN anxiety, cancer 11/09/23 12/28/23 Rx #90 tabs transport chair #1 ea 11/10/23 12/27/23 Rx Magic Mouthwash 300 mL mouthwash 10 ml mucous membrane ACHS PRN 11/22/23 12/28/23 Rx dysphagia #300 mL albuterol sulfate 90 mcg/actuation 2 puff inhalation QID PRN 11/22/23 12/28/23 Rx aerosol inhaler shortness of breath or wheezing #6.7 grams budesonide 0.5 mg/2 mL suspension 0.5 mg (2 mL) NEB BIDR #60 doses 11/22/23 12/28/23 Rx for nebulization formoterol fumarate 20 mcg/2 mL 20 mcg (2 mL) inhalation BIDR #60 11/22/23 12/28/23 Rx solution for nebulization doses (Perforomist) pantoprazole 40 mg tablet,delayed 40 mg PO QAM #90 tabs 11/22/23 12/28/23 Rx release umeclidinium 62.5 mcg/actuation 1 inh inhalation DAILY #30 ea 11/22/23 12/28/23 Rx blister powder for inhalation (Incruse Ellipta) clopidogrel 75 mg tablet (Plavix) 75 mg PO QAM #90 tabs 12/01/23 12/28/23 Rx apixaban 5 mg tablet (Eliquis) 5 mg PO BID #60 tabs 12/03/23 12/28/23 Rx diltiazem HCl 180 mg 180 mg PO QAM #30 caps 12/03/23 12/28/23 Rx capsule,extended release 24 hr isosorbide mononitrate 30 mg 30 mg PO QAM #30 tabs 12/03/23 12/28/23 Rx tablet,extended release 24 hr lisinopril 20 mg tablet 20 mg PO QAM #30 tabs 12/03/23 12/28/23 Rx hydrocodone 10 mg-acetaminophen 1 tab PO Q6H PRN pain #120 tabs 12/13/23 12/28/23 Rx 325 mg tablet pregabalin 150 mg capsule (Lyrica) 150 mg PO TID #90 caps 12/17/23 12/28/23 Rx oxycodone 5 mg tablet See Rx Instructions PO DAILY PRN 12/22/23 12/28/23 Rx C34.90, R91.8, M54.16, G89.29 #120 tabs blood sugar diagnostic (OneTouch #100 ea 12/27/23 12/27/23 Rx Ultra Test strips) levofloxacin 500 mg tablet 500 mg PO DAILY 12/28/23 12/28/23 History prochlorperazine maleate 10 mg 10 mg PO DIRECTED PRN 12/28/23 12/28/23 History tablet NAUSEA/VOMITING Allergies Allergy/AdvReac Type Severity Reaction Status Date / Time latex Allergy Intermediate skin Verified 12/28/23 15:08 itching Influenza Virus Vaccines AdvReac Severe developed Verified 12/28/23 15:08 blood clots vaccine adjuvant system, AdvReac Severe blood clots Verified 12/28/23 15:08 [id number] liposomal [From Shingrix (PF)] varicella-zoster virus AdvReac Severe blood clots Verified 12/28/23 15:08 glycoprotein E, recombinant [From Shingrix (PF)] Past Med/Surg History Problem List (Updated 12/28/23 @ 17:53 by Calixto Means MD) Refusal of blood transfusions as patient is [place] (Acute) Elevated troponin (Acute) Small cell carcinoma of lung (Acute) Anemia (Acute) Diabetes Anemia Chest pain (Acute) Unusual change in behavior Small cell carcinoma of lower lobe of left lung (Chronic 10/25/23) Hypotension (Acute) Polypharmacy (Acute) Pneumonia (Acute) Lung cancer metastatic to brain (Acute) Abdominal pain (Acute) Vomiting (Acute) Altered mental status (Acute) Small cell lung cancer in adult Paroxysmal atrial fibrillation Pulmonary mass Acute and chronic respiratory failure Uncontrolled hypertension Pulmonary nodule Lumbar degenerative disc disease Low back pain radiating to left leg Encounter for examination following treatment at hospital Mass of lower lobe of left lung Reflux esophagitis Labile hypertension S/P coronary artery stent placement (2018) ? details Chest pain (Acute) Abscess of upper gum Acute bronchitis Cough Allergic rhinitis Dyspnea on exertion Routine health maintenance Trochanteric bursitis of both hips Stress bladder incontinence, female Smoker Insomnia (Chronic) HTN (hypertension), benign (Chronic) Left hip pain (Acute) Anxiety (Acute) Asthma (Chronic) Lyme disease (Chronic) Fibromyalgia (Chronic) Chronic radicular lumbar pain (Chronic) Hypothyroid (Chronic) COPD (chronic obstructive pulmonary disease) (Chronic) CVD (cardiovascular disease) (Chronic) Medical History Chronic respiratory failure Obesity Takotsubo cardiomyopathy history of Takotsubo cardiomyopathy per [facility] Aortic stenosis mild to moderate on 05/2023 echo (DAVIS 1.0 cm2, mean PG 15 mmHg) Aneurysmal dilatation AAA, 3.4 cm History of COVID-19 07/2023 Lumbar disc herniation Peripheral neuropathy bilateral legs Diabetes mellitus, type 2 Hx of deep venous thrombosis years ago Anxiety Coronary artery disease s/p 5 stents, last in 2018 Onychomycosis Hypotension still occurring occasionally Hypertensive urgency History of TIA (transient ischemic attack) 2018, no deficits History of myocardial infarction x 5 Surgical History S/P coronary artery stent placement (2014) RCA & LAD History of cardiac cath x 5 stents,between 2014- 2017, done in [place] History of cholecystectomy History of section History of coronary artery stent placement Family History Mother Myocardial infarction Daughter Myocardial infarction Denies family history of Ovarian cancer Prostate cancer Breast cancer Colorectal cancer Social History Smoking Status: Current every day smoker Tobacco Type: Cigarettes Cigarettes Per Day: 1 pk; Second Hand Exposure: No; Do You Dip or Chew Tobacco: No; Hx Alcohol Use: No Hx Substance Use: No Preferred Language: Montserratian Communication Ability: Effective Visual Impairment: No Limitations Stoker Erector And Servicer Required: No Beliefs That Will Affect Care: Spiritual marital status: Current Living Situation: Spouse Current Living Situation Comment: and son current occupational status: disabled How many Children do You have: 6 Feels Safe at Home: Yes Childhood Exposure to Second-Hand Smoke: Yes Diet: diabetic and regular caffeine: Yes (Coffee) Dental Care, Regularly: No Physical Activity Frequency: Daily Physical Activity Frequency Comment: Daily housework/activites Seatbelt Use: always Sunscreen Use: No Assistive Devices: Bedside Commode and Nebulizer Review of Systems A total of 10 systems reviewed and were otherwise negative Physical Exam Vital Signs Vital Signs - 24 hr 12/28/23 14:07 12/28/23 14:07 12/28/23 14:07 Temperature 36.7 C Temperature Source Oral Pulse Rate 88 Pulse Rate from SpO2 Sensor Respiratory Rate 19 Blood Pressure 135/72 Blood Pressure Mean 93 Pulse Oximetry 91 94 94 Oxygen Delivery Method Room Air Room Air Room Air Sepsis Recent Fever Within 48 Hours No Sepsis New/Unexplained Change in Mental Status N/A Sepsis Action Taken by Nursing No Action Required 12/28/23 14:09 12/28/23 14:10 12/28/23 14:14 Temperature Temperature Source Pulse Rate 86 86 86 Pulse Rate from SpO2 Sensor 85 85 Respiratory Rate 18 24 Blood Pressure Blood Pressure Mean Pulse Oximetry 92 92 Oxygen Delivery Method Sepsis Recent Fever Within 48 Hours Sepsis New/Unexplained Change in Mental Status Sepsis Action Taken by Nursing 12/28/23 14:20 12/28/23 14:25 12/28/23 14:55 Temperature Temperature Source Pulse Rate 99 H Pulse Rate from SpO2 Sensor 100 H Respiratory Rate 22 Blood Pressure 138/81 Blood Pressure Mean 99 Pulse Oximetry 88 L 94 Oxygen Delivery Method Room Air Sepsis Recent Fever Within 48 Hours Sepsis New/Unexplained Change in Mental Status Sepsis Action Taken by Nursing 12/28/23 14:55 12/28/23 15:00 12/28/23 15:02 Temperature Temperature Source Pulse Rate 88 88 Pulse Rate from SpO2 Sensor 88 88 Respiratory Rate 22 19 Blood Pressure 135/74 Blood Pressure Mean 107 Pulse Oximetry 94 95 Oxygen Delivery Method Sepsis Recent Fever Within 48 Hours Sepsis New/Unexplained Change in Mental Status Sepsis Action Taken by Nursing 12/28/23 15:02 12/28/23 15:10 12/28/23 15:20 Temperature Temperature Source Pulse Rate 85 85 86 Pulse Rate from SpO2 Sensor 87 85 85 Respiratory Rate 22 19 17 Blood Pressure Blood Pressure Mean Pulse Oximetry 96 92 93 Oxygen Delivery Method Sepsis Recent Fever Within 48 Hours Sepsis New/Unexplained Change in Mental Status Sepsis Action Taken by Nursing 12/28/23 15:30 12/28/23 15:30 12/28/23 15:40 Temperature Temperature Source Pulse Rate 76 79 Pulse Rate from SpO2 Sensor 76 79 Respiratory Rate 16 16 Blood Pressure 112/66 Blood Pressure Mean 90 Pulse Oximetry 94 95 Oxygen Delivery Method Sepsis Recent Fever Within 48 Hours Sepsis New/Unexplained Change in Mental Status Sepsis Action Taken by Nursing 12/28/23 15:50 12/28/23 16:00 12/28/23 16:00 Temperature Temperature Source Pulse Rate 82 80 Pulse Rate from SpO2 Sensor 82 79 Respiratory Rate 17 19 Blood Pressure 141/71 H Blood Pressure Mean 105 Pulse Oximetry 95 94 Oxygen Delivery Method Sepsis Recent Fever Within 48 Hours Sepsis New/Unexplained Change in Mental Status Sepsis Action Taken by Nursing 12/28/23 16:10 12/28/23 16:20 12/28/23 16:30 Temperature Temperature Source Pulse Rate 78 79 78 Pulse Rate from SpO2 Sensor 79 80 78 Respiratory Rate 19 18 19 Blood Pressure Blood Pressure Mean Pulse Oximetry 94 93 91 Oxygen Delivery Method Sepsis Recent Fever Within 48 Hours Sepsis New/Unexplained Change in Mental Status Sepsis Action Taken by Nursing 12/28/23 16:30 12/28/23 16:40 12/28/23 16:50 Temperature Temperature Source Pulse Rate 91 H 83 Pulse Rate from SpO2 Sensor 88 81 Respiratory Rate 14 15 Blood Pressure 139/78 Blood Pressure Mean 85 Pulse Oximetry 91 94 Oxygen Delivery Method Sepsis Recent Fever Within 48 Hours Sepsis New/Unexplained Change in Mental Status Sepsis Action Taken by Nursing 12/28/23 17:00 12/28/23 17:01 12/28/23 17:01 Temperature Temperature Source Pulse Rate 78 Pulse Rate from SpO2 Sensor 79 Respiratory Rate 21 Blood Pressure 126/79 126/79 Blood Pressure Mean 99 99 Pulse Oximetry 92 Oxygen Delivery Method Sepsis Recent Fever Within 48 Hours Sepsis New/Unexplained Change in Mental Status Sepsis Action Taken by Nursing 12/28/23 17:01 12/28/23 17:10 12/28/23 17:20 Temperature Temperature Source Pulse Rate 78 79 98 H Pulse Rate from SpO2 Sensor 78 79 Respiratory Rate 18 17 20 Blood Pressure Blood Pressure Mean Pulse Oximetry 93 95 Oxygen Delivery Method Sepsis Recent Fever Within 48 Hours Sepsis New/Unexplained Change in Mental Status Sepsis Action Taken by Nursing 12/28/23 17:30 12/28/23 17:40 12/28/23 17:41 Temperature Temperature Source Pulse Rate 85 80 79 Pulse Rate from SpO2 Sensor 85 80 80 Respiratory Rate 14 20 16 Blood Pressure Blood Pressure Mean Pulse Oximetry 96 91 94 Oxygen Delivery Method Sepsis Recent Fever Within 48 Hours Sepsis New/Unexplained Change in Mental Status Sepsis Action Taken by Nursing 12/28/23 17:41 Temperature Temperature Source Pulse Rate Pulse Rate from SpO2 Sensor Respiratory Rate Blood Pressure 138/76 Blood Pressure Mean 98 Pulse Oximetry Oxygen Delivery Method Sepsis Recent Fever Within 48 Hours Sepsis New/Unexplained Change in Mental Status Sepsis Action Taken by Nursing General: Well developed well nourished middle-age female who appears in no acute distress, breathing comfortably on room air. Normal speech HEENT: Normal cephalic atraumatic. Pupils are equal round and reactive to light. Extraocular movements are intact. Oropharynx is pink with moist mucous membranes. No swelling of the mouth lips or tongue. Neck: Supple with a midline trachea. No meningeal signs or stiffness, no JVD or bruits. No Stridor. Chest: Clear to auscultation bilaterally. No wheezes or rhonchi. No increased work of breathing. Heart: Regular rate and rhythm without murmurs or gallops. Abdomen: Soft nontender, nondistended without rebound guarding or rigidity. Extremities: No cyanosis clubbing or edema. No calf tenderness or assymetry Spine/Back. Non tender to palpation. No CVA tenderness Skin: Good turgor without rashes. Neurologic exam: Cranial nerves two through 12 are intact. Motor and sensation are intact and symmetrical throughout. Course Administered Medications Metoprolol Tartrate (Metoprolol Tartrate 25 Mg Tab) 25 mg PO BID [facility] Stop: 01/27/24 17:36 Last Admin: 12/28/23 17:41 Dose: 25 mg Documented By: SHONA Pregabalin (Pregabalin 150 Mg Cap) 150 mg PO TID [facility] Stop: 01/27/24 16:49 Last Admin: 12/28/23 17:02 Dose: 150 mg Documented By: SHONA Discontinued Medications Ioversol (Optiray 320 125ml) 120 ml IV ONCE ONE Stop: 12/28/23 14:49 Last Admin: 12/28/23 14:49 Dose: 120 ml Documented By: LENORE Nitroglycerin (Nitroglycerin Sl 0.4 Mg/Tab Tab) 0.4 mg SL NOW STA Stop: 12/28/23 15:03 Last Admin: 12/28/23 15:05 Dose: 0.4 mg Documented By: RAFIQ Nitroglycerin (Nitroglycerin Sl 0.4 Mg/Tab Tab) Confirm Administered Dose 0.4 mg .ROUTE .STK-MED ONE Stop: 12/28/23 15:04 Last Admin: 12/28/23 15:05 Dose: Not Given Documented By: RAFIQ Nitroglycerin (Nitroglycerin 2% Ointment 30gm Tube) 1 inch EXT NOW ONE Stop: 12/28/23 15:20 Last Admin: 12/28/23 15:23 Dose: 1 inch Documented By: SHONA Nitroglycerin (Nitroglycerin 2% Ointment 30gm Tube) Confirm Administered Dose 18 inch EXT .STK-MED ONE Stop: 12/28/23 15:22 Last Admin: 12/28/23 15:23 Dose: Not Given Documented By: SHONA Pregabalin (Pregabalin 150 Mg Cap) Confirm Administered Dose 150 mg PO .STK-MED ONE Stop: 12/28/23 16:54 Last Admin: 12/28/23 17:02 Dose: Not Given Documented By: SHONA Critical Care Time Critical Care Time: Yes Total Critical Care Time: 38 Due to the patient's chest pain, concern for EKG changes need for multiple medications, consultations reassessment and workup, I have personally spent greater than 38 minutes of critical care time in the direct management of this patient. This includes bedside care, interpretation of diagnostic studies, and testing, discussion with consultants, patient, and family members, and other required patient management activities. This 38 minutes is in excess of all separately billable procedures. Medical Decision Making Differential Diagnosis Acute coronary syndrome, STEMI, PE, cancer related complication, myocarditis, electrolyte or metabolic abnormality, infection Medical Records Attestation: I reviewed the patient's medical records. Home Medications Current Medication List: was personally reviewed by me Laboratory Data Attestation: I reviewed the patient's lab results. 12/28/23 14:14 12/28/23 14:14 Lab Results 12/28/23 12/28/23 12/28/23 Range/Units 14:14 14:19 15:07 WBC 3.05 L (4.8-10.8) K/ul RBC 2.77 L (4.20-5.40) M/uL Hgb 8.3 L (12.0-16.0) g/dl POC Hgb 7.8 L (12.0-16.0) g/dl Hct 25.5 L (37.0-47.0) % POC Hct 23 L (37-47) % MCV 92.1 (80.0-100.0) fL MCH 30.0 (25.0-34.0) pg MCHC 32.5 (32.0-36.0) g/dL RDW Std Deviation 74.9 H (36.4-46.3) fL RDW Coeff of Chanel 22.1 H (11.5-14.5) % Plt Count 260 (130-400) K/uL MPV 10.2 (9.4-12.4) fL Immature Gran % (Auto) 5.2 % Neut % (Auto) 84.7 % Lymph % (Auto) 6.2 % [place] % (Auto) 3.6 % Eos % (Auto) 0.0 % Baso % (Auto) 0.3 % Neut # (Auto) 2.58 (1.40-6.50) K/uL Lymph # (Auto) 0.19 L (1.20-3.40) K/uL [place] # (Auto) 0.11 (0.11-0.59) K/uL Eos # (Auto) 0.00 (0.00-0.50) K/uL Baso # (Auto) 0.01 (0.00-0.20) K/uL Immature Gran # (Auto) 0.16 (0.01-0.20) K/uL Toxic Granulation 1+ Polychromasia 1+ Anisocytosis Present PT 11.4 (9.0-12.0) Seconds INR 1.1 (0.9-1.1) APTT 35 H (21-31) Seconds PTT Ratio 1.3 POC Sodium 131 L (135-144) mmol/L Sodium 131 L (136-145) mmol/L POC Potassium 4.3 (3.3-5.0) mmol/L Potassium 4.3 (3.5-5.1) mmol/L POC Chloride 98 L (101-112) mmol/L Chloride 100 (98-107) mmol/L Carbon Dioxide 23 (21-32) mmol/L POC Total CO2 21 L (24-31) mmol/L Anion Gap 8 (3-11) POC Anion Gap 17.0 (16-25) mmol/L POC BUN 7 (7-18) mg/dl BUN 9 (6-23) mg/dl Creatinine 0.75 (0.6-1.2) mg/dl POC Creatinine 0.7 (0.6-1.3) mg/dl Est Cr Clr Drug Dosing 88.0 ml/min Est GFR ( Amer) 97.6 ml/min Est GFR (Non-Af Amer) 84.2 ml/min BUN/Creatinine Ratio 12.0 (10-20) Glucose 225 H (70-99(Fasting)) mg/dl POC Glucose (other) 227 H (70-99) mg/dl Calcium 8.4 L (8.6-10.3) mg/dl POC Ioniz Calcium Mariann 1.16 (1.12-1.32) mmol/l Iron (35-150) mcg/dl TIBC (250-450) mcg/dl Unsaturated IBC (155-355) mcg/dl Transferrin % Sat (15-50) % Ferritin (8-388) ng/ml Total Bilirubin 0.6 (0.2-1.0) mg/dl AST 12 L (13-39) U/L ALT 11 (7-52) U/L Alkaline Phosphatase 93 (34-104) U/L Troponin I High Sens 201.8 H* (0-14) pg/ml Total Protein 6.6 (6.0-8.3) gm/dl Albumin 3.6 (3.4-5.0) gm/dl Globulin 3.0 (2.5-4.0) gm/dl Albumin/Globulin Ratio 1.2 (0.9-2) Lipase 12 (11-82) U/L Vitamin B12 (180-914) pg/ml Folate (>5.38) ng/ml Blood Type A Negative Antibody Screen NEGATIVE 12/28/23 12/28/23 Range/Units 15:08 16:59 WBC (4.8-10.8) K/ul RBC (4.20-5.40) M/uL Hgb (12.0-16.0) g/dl POC Hgb (12.0-16.0) g/dl Hct (37.0-47.0) % POC Hct (37-47) % MCV (80.0-100.0) fL MCH (25.0-34.0) pg MCHC (32.0-36.0) g/dL RDW Std Deviation (36.4-46.3) fL RDW Coeff of Chanel (11.5-14.5) % Plt Count (130-400) K/uL MPV (9.4-12.4) fL Immature Gran % (Auto) % Neut % (Auto) % Lymph % (Auto) % [place] % (Auto) % Eos % (Auto) % Baso % (Auto) % Neut # (Auto) (1.40-6.50) K/uL Lymph # (Auto) (1.20-3.40) K/uL [place] # (Auto) (0.11-0.59) K/uL Eos # (Auto) (0.00-0.50) K/uL Baso # (Auto) (0.00-0.20) K/uL Immature Gran # (Auto) (0.01-0.20) K/uL Toxic Granulation Polychromasia Anisocytosis PT (9.0-12.0) Seconds INR (0.9-1.1) APTT (21-31) Seconds PTT Ratio POC Sodium (135-144) mmol/L Sodium (136-145) mmol/L POC Potassium (3.3-5.0) mmol/L Potassium (3.5-5.1) mmol/L POC Chloride (101-112) mmol/L Chloride (98-107) mmol/L Carbon Dioxide (21-32) mmol/L POC Total CO2 (24-31) mmol/L Anion Gap (3-11) POC Anion Gap (16-25) mmol/L POC BUN (7-18) mg/dl BUN (6-23) mg/dl Creatinine (0.6-1.2) mg/dl POC Creatinine (0.6-1.3) mg/dl Est Cr Clr Drug Dosing ml/min Est GFR ( Amer) ml/min Est GFR (Non-Af Amer) ml/min BUN/Creatinine Ratio (10-20) Glucose (70-99(Fasting)) mg/dl POC Glucose (other) (70-99) mg/dl Calcium (8.6-10.3) mg/dl POC Ioniz Calcium Mariann (1.12-1.32) mmol/l Iron 35 (35-150) mcg/dl TIBC 269 (250-450) mcg/dl Unsaturated IBC 234 (155-355) mcg/dl Transferrin % Sat 13 L (15-50) % Ferritin 309.6 (8-388) ng/ml Total Bilirubin (0.2-1.0) mg/dl AST (13-39) U/L ALT (7-52) U/L Alkaline Phosphatase (34-104) U/L Troponin I High Sens 186.4 H* (0-14) pg/ml Total Protein (6.0-8.3) gm/dl Albumin (3.4-5.0) gm/dl Globulin (2.5-4.0) gm/dl Albumin/Globulin Ratio (0.9-2) Lipase (11-82) U/L Vitamin B12 287 (180-914) pg/ml Folate 8.92 (>5.38) ng/ml Blood Type Antibody Screen Imaging Data Attestation: I personally reviewed and interpreted this imaging study as follows: My Impression: Chest x-rayno acute infiltrate, failure, pneumothorax seen Radiologist's Impression: Chest CTA 12/28/23 14:11 CT ANGIOGRAPHY OF THE CHEST, PULMONARY EMBOLUS PROTOCOL CLINICAL HISTORY: Chest Pain, eval for PE. Lung cancer. COMPARISON STUDY: Chest CT November 04, 2023. PET/CT September 09, 2023. TECHNIQUE: Following IV administration of 120 mL of Optiray, helical axial images of the chest were obtained utilizing the pulmonary embolus protocol. Maximal intensity projections and sagittal and coronal reformats were viewed on an independent 3D workstation. IV contrast was administered without complication. Automated exposure control was utilized for the study. A dose lowering technique was utilized adhering to the principles of ALARA. CT DOSE: 836.19 mGy.cm FINDINGS: No pulmonary emboli are identified. There is no thoracic aortic dissection. No enlarged thoracic lymph nodes are identified. There is mild cardiomegaly and extensive coronary calcification. There is no pericardial effusion. No pneumothorax is present. There is a trace left pleural effusion. Masslike left lower lobe opacity has improved since CT of November 04, 2023. Residual left lower lobe opacity measures 6 x 4 cm. Interlobular septal thickening within the left lower lobe is present. Upper lobe predominant emphysema is noted. A 9 mm irregular left upper lobe nodule on image 189 of 237 is unchanged. No suspicious lesions are identified within the bony thorax. Visualized portions of the upper abdomen demonstrate intrahepatic biliary ductal dilatation, similar to prior abdominal CT. This is likely related to cholecystectomy. Left lower lobe aeration has significantly improved. A right PICC is in place. IMPRESSION: 1. No pulmonary emboli identified. 2. Mass-like left lower lobe opacity, significantly decreased since CT of November 04, 2023. The findings represent a partial treatment response. Interval improvement in left lower lobe aeration. Trace left pleural effusion. 3. No change in a 9 mm irregular left upper lobe nodule. This remains indeterminate. ACT 112: Negative or not required by law. Electronically signed by: Dinesh Torres M.D. 12/28/2023 3:14 PM Chest X-Ray 12/28/23 14:11 XR chest 1V portable CLINICAL HISTORY: Chest pain, nonspecific TECHNIQUE: Single frontal radiograph of the chest was obtained. Comparison: Comparison is made to chest radiograph 11/04/2023 FINDINGS: Interval placement of a right PICC with its tip at the cavoatrial junction. Cardiomegaly is noted. The aortic arch is calcified. The lungs are clear, in particular previously noted left lower lobe mass is less evident. No evidence of pleural effusion or pneumothorax. IMPRESSION: Previously noted left lower lobe mass is less conspicuous on today's exam. Otherwise no acute abnormality. ACT 112: Negative or not required by law. Electronically signed by: David Mccann M.D. 12/28/2023 2:39 PM ECG Data Attestation: I personally reviewed and interpreted this ECG as follows: Indication: + chest pain and + other (Poor baseline) Rate (beats per minute): 84 Rhythm: + normal sinus ECG Intervals/blocks: + Normal QT and + Normal DC ECG [place]: + Normal ECG ST segments: + ST depression ECG Findings: no PACs or no PVCs Comparison ECG Date: from (11/04/23) Change: no significant change MDM Narrative This patient comes in as described above. She was sent over from the cancer center after an chest pain did talk to the paramedics and gave ALS prehospital care and she is feeling better and denies pain at present her EKG may have some subtle ST depressions which may look a little bit worse. Given the significance of her symptoms and concern for acute coronary syndrome I did have them place her in room B1 and saw her immediately upon arrival. I did a stat Chem-8 and her hemoglobin is 7.8 so there could be demand ischemia although looking back through her she runs in the low 8 range I did type and screen her as well. She was placed in room B1. I did order CT angiography of the chest. There is no evidence of PE. When she came back from CAT scan she started getting the chest pain again she had no rash or any nausea or vomiting to suggest any allergic reaction. She was given nitro while 1 sublingual and felt better. Given this I did put 1 inch of paste on her. CAT scan was unremarkable for PE. I do think she needs to be admitted/observed. I did discuss case with Dr. Arrieta who is on- call for cardiology. I also discussed the case with Dr. Rai who is on-call for the medical team will be admitted her for further treatment and evaluation. She was found to be anemic although close to baseline. I did order type and screen but the patient declined because she says she is [employer] and would refuse any blood products. I talked her at length about this. She will be admitted/observed Continuous cardiac cath tech: Orders placed in EMR for continuous cardiac cath tech: Upon my evaluation patient noted to be in normal sinus rhythm with a rate of 90 Impression & Plan Chest pain, COPD (chronic obstructive pulmonary disease), S/P coronary artery stent placement, Anemia, Small cell carcinoma of lung, Elevated troponin, Refusal of blood transfusions as patient is [employer] Discharge Plan Visit Data Chief Complaint: Chest Pain Stated Complaint: CHEST PAIN ED Provider: Calixto Means Discharge Problem: Chest pain, COPD (chronic obstructive pulmonary disease), S/P coronary artery stent placement, Anemia, Small cell carcinoma of lung, Elevated troponin, Refusal of blood transfusions as patient is [employer] Forms Stand Alone Forms: My [facility] [address] [facility] Prescriptions Prescriptions: No Action (DME) Wheeled Walker Misc See Rx Instructions .Route Qty: 1 0RF Rx Instructions: w/ a seat and hand brakes atorvastatin 40 mg tablet 40 mg PO HS Qty: 90 1RF Rx Instructions: 40 mg PO at bedtime metformin 500 mg tablet 500 mg PO BID Qty: 60 2RF (DME) Hospital Bed Homecare Misc See Rx Instructions .Route Qty: 1 0RF Rx Instructions: As directed (DME) Wheelchair (Manual) Device See Rx Instructions .Route Qty: 1 0RF Rx Instructions: As directed (DME) WHEEL MOBILITY SCOOTER See Rx Instructions .Route .MEDSUPPLY Qty: 1 0RF Rx Instructions: As directed lorazepam 1 mg tablet 1 mg PO TID PRN (Reason: anxiety, cancer) Qty: 90 5RF (DME) transport chair See Rx Instructions .Route .MEDSUPPLY Qty: 1 0RF Rx Instructions: As directed Magic Mouthwash 300 mL mouthwash 10 ml mucous membrane ACHS PRN (Reason: dysphagia) Qty: 300 3RF clopidogrel [Plavix] 75 mg tablet 75 mg PO QAM Qty: 90 1RF Eliquis 5 mg tablet 5 mg PO BID Qty: 60 0RF Rx Instructions: start 10/26/23 in the evening diltiazem HCl 180 mg capsule,extended release 24hr 180 mg PO QAM Qty: 30 5RF isosorbide mononitrate 30 mg tablet extended release 24 hr 30 mg PO QAM Qty: 30 5RF lisinopril 20 mg tablet 20 mg PO QAM Qty: 30 5RF hydrocodone-acetaminophen 10-325 mg tablet 1 tab PO Q6H PRN (Reason: pain) Qty: 120 0RF pregabalin [Lyrica] 150 mg capsule 150 mg PO TID Qty: 90 2RF oxycodone 5 mg tablet See Rx Instructions PO DAILY PRN (Reason: C34.90, R91.8, M54.16, G89.29) Qty: 120 0RF Rx Instructions: 2-3 tabs orally daily PRN; Take one tablet daily PRN for breakthrough pain (DME) OneTouch Ultra Test Strip See Rx Instructions .Route Qty: 100 0RF Rx Instructions: As directed nitroglycerin 0.4 mg tablet, sublingual 0.4 mg sublingual Q5M PRN (Reason: chest pain) Qty: 30 4RF Rx Instructions: do not exceed 3 doses per episode. call 911 if ongoing chest pain. levothyroxine [Synthroid] 50 mcg tablet 50 mcg PO QAM aspirin [Adult Low Dose Aspirin] 81 mg tablet,delayed release (DR/EC) 81 mg PO QAM albuterol sulfate 90 mcg/actuation HFA aerosol inhaler 2 puff inhalation QID PRN (Reason: shortness of breath or wheezing) Qty: 6.7 3RF formoterol fumarate [Perforomist] 20 mcg/2 mL solution for nebulization 20 mcg inhalation BIDR Qty: 60 6RF budesonide 0.5 mg/2 mL suspension for nebulization 0.5 mg NEB BIDR Qty: 60 6RF Incruse Ellipta 62.5 mcg/actuation blister with device 1 inh inhalation DAILY Qty: 30 6RF pantoprazole 40 mg tablet,delayed release (DR/EC) 40 mg PO QAM Qty: 90 0RF clonidine HCl 0.1 mg tablet 0.1 mg PO BID Qty: 180 2RF ondansetron HCl 4 mg tablet 4 mg PO QID PRN (Reason: nausea and vomiting) Qty: 120 5RF (DME) blood-glucose meter [[employer] Ultra2 Meter] Misc See Rx Instructions .Route Qty: 1 0RF Rx Instructions: As directed (DME) lancets [OneTouch Delica Plus Lancet] 33 gauge misc See Rx Instructions .Route Qty: 100 0RF Rx Instructions: As directed levocetirizine [Xyzal] 5 mg tablet 5 mg PO DAILY PRN (Reason: allergies) nicotine 21-14-7 mg/24 hr patch, TD daily, sequential 1 patch transdermal DAILY Patient Comments: patient states not currently wearing Rx Instructions: apply 1-21 mg NICOTINE PATCH daily for 28 days; follow with 1-14 mg PATCH daily for 14 days, then 1-7mg PATCH daily for 14 days transdermal olanzapine 2.5 mg tablet 2.5 mg PO UD PRN (Reason: n/v) zolpidem 5 mg tablet 5 mg PO UD PRN (Reason: Sleep) prochlorperazine maleate 10 mg tablet 10 mg PO DIRECTED PRN (Reason: NAUSEA/VOMITING) levofloxacin 500 mg tablet 500 mg PO DAILY Rx Instructions: STARTED 12/28/23 FOR 14 DAYS. Referrals Referrals: Katarina Andre MD [Primary Care Provider] - Discharge Problem: Chest pain Qualifiers: Chest pain type: precordial pain Qualified Code(s): R07.2 - Precordial pain COPD (chronic obstructive pulmonary disease) Qualifiers: COPD type: unspecified COPD Qualified Code(s): J44.9 - Chronic obstructive pulmonary disease, unspecified Anemia Qualifiers: Anemia type: unspecified type Qualified Code(s): D64.9 - Anemia, unspecified
[2023-12-28 14:32] LABS: iSTAT Creatinine 0.7 mg/dl (0.6-1.3); iSTAT Hemoglobin 7.8 g/dl (12.0-16.0); iSTAT Ionized Calcium 1.16 mmol/l (1.12-1.32); iSTAT Potassium 4.3 mmol/L (3.3-5.0)
[2023-12-28 14:35] LABS: Hematocrit (blood only) 25.5 % (37.0-47.0); Hemoglobin 8.3 g/dl (12.0-16.0); Mean Corpuscular Hgb Conc 32.5 g/dL (32.0-36.0); Mean Corpuscular Volume 92.1 fL (80.0-100.0); Mean Platelet Volume 10.2 fL (9.4-12.4); Platelet Count 260 K/uL (130-400); RDW Coefficient of Variation 22.1 % (11.5-14.5); RDW Standard Deviation 74.9 fL (36.4-46.3); Red Blood Count 2.77 M/uL (4.20-5.40); White Blood Count 3.05 K/ul (4.8-10.8)
--- NOTE | 2023-12-28 14:40 | XRay Report ---
XR chest 1V portable CLINICAL HISTORY: Chest pain, nonspecific TECHNIQUE: Single frontal radiograph of the chest was obtained. Comparison: Comparison is made to chest radiograph 11/04/2023 FINDINGS: Interval placement of a right PICC with its tip at the cavoatrial junction. Cardiomegaly is noted. Th e aortic arch is calcified. The lungs are clear, in particular previously noted left lower lobe mass is less evident. No evidence of pleural effusion or pneumothorax. IMPRESSION: Previously noted left lower lobe mass is less conspicuous on today's exam. Otherwise no acute abnorma lity. ACT 112: Negative or not required by law. Electronically signed by: David Mccann M.D. 12/28/2023 2:39 PM
[2023-12-28] MEDS: OPTIRAY 320 125ml IV ONE (14:49)
[2023-12-28 14:52] LABS: Albumin Globulin Ratio 1.2 (0.9-2); Albumin Level 3.6 gm/dl (3.4-5.0); Bilirubin,Total 0.6 mg/dl (0.2-1.0); Calcium 8.4 mg/dl (8.6-10.3); Est GFR (African American) 97.6 ml/min; Est GFR (Non-African American) 84.2 ml/min; Potassium 4.3 mmol/L (3.5-5.1); Total Protein 6.6 gm/dl (6.0-8.3)
[2023-12-28 14:57] LABS: INR 1.1 (0.9-1.1); Partial Thromboplastin Ratio 1.3; Partial Thromboplastin Time 35 Seconds (21-31); Prothrombin Time 11.4 Seconds (9.0-12.0)
[2023-12-28] MEDS: NITROGLYCERIN SL 0.4 MG/TAB TAB ONE (15:05)
[2023-12-28] MEDS: NITROGLYCERIN SL 0.4 MG/TAB TAB SL STA (15:05)
--- NOTE | 2023-12-28 15:16 | CT Scan Report ---
CT ANGIOGRAPHY OF THE CHEST, PULMONARY EMBOLUS PROTOCOL CLINICAL HISTORY: Chest Pain, eval for PE. Lung cancer. COMPARISON STUDY: Chest CT November 04, 2023. PET/CT September 09, 2023. TECHNIQUE: Following IV administration of 120 mL of Optiray, helical axial images of the chest were o btained utilizing the pulmonary embolus protocol. Maximal intensity projections and sagittal and cor onal reformats were viewed on an independent 3D workstation. IV contrast was administered without co mplication. Automated exposure control was utilized for the study. A dose lowering technique was ut ilized adhering to the principles of ALARA. CT DOSE: 836.19 mGy.cm FINDINGS: No pulmonary emboli are identified. There is no thoracic aortic dissection. No enlarged th oracic lymph nodes are identified. There is mild cardiomegaly and extensive coronary calcification. T here is no pericardial effusion. No pneumothorax is present. There is a trace left pleural effusion. Masslike left lower lobe opacity has improved since CT of November 04, 2023. Residual left lower lobe op acity measures 6 x 4 cm. Interlobular septal thickening within the left lower lobe is present. Upper lobe predominant emphysema is noted. A 9 mm irregular left upper lobe nodule on image 189 of 237 is u nchanged. No suspicious lesions are identified within the bony thorax. Visualized portions of the upp er abdomen demonstrate intrahepatic biliary ductal dilatation, similar to prior abdominal CT. This is likely related to cholecystectomy. Left lower lobe aeration has significantly improved. A right PICC is in place. IMPRESSION: 1. No pulmonary emboli identified. 2. Mass-like left lower lobe opacity, significantly decreased since CT of November 04, 2023. The finding s represent a partial treatment response. Interval improvement in left lower lobe aeration. Trace lef t pleural effusion. 3. No change in a 9 mm irregular left upper lobe nodule. This remains indeterminate. ACT 112: Negative or not required by law. Electronically signed by: Dinesh Torres M.D. 12/28/2023 3:14 PM
[2023-12-28 15:17] LABS: Troponin I High Sensitivity 201.8 pg/ml (0-14)
[2023-12-28 15:19] LABS: Anisocytosis Present; Basophils # (auto) 0.01 K/uL (0.00-0.20); Basophils % (auto) 0.3 %; Immature Granulocytes # (auto) 0.16 K/uL (0.01-0.20); Immature Granulocytes % (auto) 5.2 %; Lymphocytes # (auto) 0.19 K/uL (1.20-3.40); Lymphocytes % (auto) 6.2 %; Monocytes # (auto) 0.11 K/uL (0.11-0.59); Monocytes % (auto) 3.6 %; Neutrophils # (auto) 2.58 K/uL (1.40-6.50); Neutrophils % (auto) 84.7 %; Polychromasia 1+; Toxic Granulation 1+
[2023-12-28] MEDS: NITROGLYCERIN 2% OINTMENT 30GM TUBE EXT ONE ×2 (15:23)
--- NOTE | 2023-12-28 15:33 | History & Physical Report ---
Date of Service December 28, 2023 Assessment & Plan (1) Abdominal pain: Plan: Chest pain Recurrent chest pain improved with nitro. Chest pain-free on initial assessment Troponin 228, repeat 201 EKG: Continue Nitropaste. Received aspirin prehospital Cardiology consulted Patient previously on aspirin/Plavix/Eliquis, this was narrowed to aspirin/Eliquis last month. Details of PCI are unavailable in our system; patient does have a reported history of 4-5 stents between and history of Takotsubo cardiomyopathy in 2018. Follows with [facility]. 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 Due to that she has not taken her clonidine in several weeks, and blood pressure still drops with some lightheadedness in the mornings As she has not been on clonidine for at least 3 weeks she is not in a rebound/withdrawal timeframe and will discontinue this on admission Ideally patient will be on a beta-brianna given her underlying cardiac disease. Will hold diltiazem and start metoprolol tomorrow morning. She reports she did take her morning Eliquis, did not take aspirin but received this prehospital Continue isosorbide Lisinopril temporarily held due to patient report of hypertension, dose reduce if needed. If blood pressure is high, may give this at [address] at time of admission (5) Anemia: Plan: Chronic anemia No abdominal pain, no acute bleeding HemoglobinBaseline of around 10-12, although gradually decreasing over the previous few months. Patient is not microcytic Denies GI bleeding She is a Pentec[employer]al and cannot receive blood products Iron studies ordered, B12/folate pending. May receive Venofer up to 300 mg daily x 3 doses for iron deficiency if needed. Differential includes anemia of chronic disease with underlying metastatic cancer (6) Diabetes: Plan: Basal bolus SSI while inpatient, orals held Goal BSG [id number] Plan Patient has a history of a stable infrarenal aneurysm. Patient was prescribed Levaquin prophylactically after chemo but has not started this, would defer fluoroquinolones due to underlying aneurysm. Follow fever curve. Empiric abx deferred on admit DVT prophylaxis: SCDs, Eliquis temporarily held pending additional evaluation and anemia evaluation CODE STATUS: Full code Disposition: PCU Diet: Clears History of Present Illness Primary Care Provider: Katarina Andre MD Sanjuanita is a 63-year-old female BIBA from [facility]. Undergoing tx for small cell. Trop at ccp 200s, EKG Hx 5 prior stents. [facility] ASA [facility], pain free by time of ER assessment EKG suspicious for ST depressions, no elevations are noted CTA no PE Recurrent chest pain in ER --> nitro --> chest pain resolved, nitro paste placed ____ Sanjuanita is seen at the bedside with her family present. 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 Her chest pain did resolve after an aspirin and nitro, however then recurred and subsequently resolved again after having Nitropaste placed in the ER. She reports she has a history of 5 stents placed from [facility] in [place]. Her last stent was around 2018. She has a picture of her RCA stent card, does not have a picture of her other stent cards She reports that she has had return of her chest pain just in the last week. This was initially on exertion and lasted less than 5 minutes and resolved with nitro however has become more severe over the last few days. 48 hours ago she had her first episode of severe substernal chest pain which occurred at rest and took about 4 minutes to resolve with nitro. Does feel similar to when she had prior pain around her stents. She is very concerned that this could be related to her chemo regimen and has discussed this with her oncologist. Denies shortness of breath or difficulty breathing. Denies new orthopnea. Denies lightheadedness/dizziness/syncope/presyncope. 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 Denies any bleeding and has not had melena/hematochezia/hemoptysis. Is okay with iron levels/B12/folate being checked. Medical History: Reviewed Medications: Reviewed Surgical History: Reviewed Family history: Reviewed Allergies: Reviewed. Pentecostal cannot receive blood. Itching to latex Social History: 1-1.5 pack/day history since teenage years. Quit 2 days ago. Declines patch. Denies alcohol use Code Status: Full code Allergies Allergy/AdvReac Type Severity Reaction Status Date / Time latex Allergy Intermediate skin Verified 12/28/23 15:08 itching Influenza Virus Vaccines AdvReac Severe developed Verified 12/28/23 15:08 blood clots vaccine adjuvant system, AdvReac Severe blood clots Verified 12/28/23 15:08 AS01B liposomal [From Shingrix (PF)] varicella-zoster virus AdvReac Severe blood clots Verified 12/28/23 15:08 glycoprotein E, recombinant [From [employer] (PF)] Home Medications Medication Instructions Recorded Confirmed Type aspirin 81 mg tablet,delayed 81 mg PO QAM 01/09/20 12/28/23 History release (Adult Low Dose Aspirin) levothyroxine 50 mcg tablet 50 mcg PO QAM 01/09/20 12/28/23 History (Synthroid) nitroglycerin 0.4 mg sublingual 0.4 mg sublingual Q5M PRN chest 01/14/23 12/28/23 Rx tablet pain #30 tabs levocetirizine 5 mg tablet (Xyzal) 5 mg PO DAILY PRN allergies 05/26/23 12/28/23 History Wheeled Walker #1 ea 06/16/23 12/27/23 Rx clonidine HCl 0.1 mg tablet 0.1 mg PO BID #180 tabs 06/18/23 12/28/23 Rx atorvastatin 40 mg tablet 40 mg PO HS #90 tabs 07/23/23 12/28/23 Rx nicotine 1 patch transdermal DAILY 09/17/23 12/28/23 History 21mg/24hr-14mg/24hr-7mg/24hr daily transderm patches,sequentl metformin 500 mg tablet 500 mg PO BID #60 tabs 10/27/23 12/28/23 Rx blood-glucose meter (SouthtreeTouch #1 ea 10/28/23 12/27/23 Rx Ultra2 Meter) lancets 33 gauge (OneTouch Delica #100 ea 10/28/23 12/27/23 Rx Plus Lancet) ondansetron HCl 4 mg tablet 4 mg PO QID PRN nausea and 10/28/23 12/28/23 Rx vomiting #120 tabs Hospital Bed Homecare #1 ea 11/04/23 12/27/23 Rx olanzapine 2.5 mg tablet 2.5 mg PO UD PRN n/v 11/04/23 12/28/23 History zolpidem 5 mg tablet 5 mg PO UD PRN Sleep 11/04/23 12/28/23 History WHEEL MOBILITY SCOOTER #1 ea 11/08/23 12/27/23 Rx Wheelchair (Manual) #1 ea 11/08/23 12/27/23 Rx lorazepam 1 mg tablet 1 mg PO TID PRN anxiety, cancer 11/09/23 12/28/23 Rx #90 tabs transport chair #1 ea 11/10/23 12/27/23 Rx Magic Mouthwash 300 mL mouthwash 10 ml mucous membrane ACHS PRN 11/22/23 12/28/23 Rx dysphagia #300 mL albuterol sulfate 90 mcg/actuation 2 puff inhalation QID PRN 11/22/23 12/28/23 Rx aerosol inhaler shortness of breath or wheezing #6.7 grams budesonide 0.5 mg/2 mL suspension 0.5 mg (2 mL) NEB BIDR #60 doses 11/22/23 12/28/23 Rx for nebulization formoterol fumarate 20 mcg/2 mL 20 mcg (2 mL) inhalation BIDR #60 11/22/23 12/28/23 Rx solution for nebulization doses (Perforomist) pantoprazole 40 mg tablet,delayed 40 mg PO QAM #90 tabs 11/22/23 12/28/23 Rx release umeclidinium 62.5 mcg/actuation 1 inh inhalation DAILY #30 ea 11/22/23 12/28/23 Rx blister powder for inhalation (Incruse Ellipta) clopidogrel 75 mg tablet (Plavix) 75 mg PO QAM #90 tabs 12/01/23 12/28/23 Rx apixaban 5 mg tablet (Eliquis) 5 mg PO BID #60 tabs 12/03/23 12/28/23 Rx diltiazem HCl 180 mg 180 mg PO QAM #30 caps 12/03/23 12/28/23 Rx capsule,extended release 24 hr isosorbide mononitrate 30 mg 30 mg PO QAM #30 tabs 12/03/23 12/28/23 Rx tablet,extended release 24 hr lisinopril 20 mg tablet 20 mg PO QAM #30 tabs 12/03/23 12/28/23 Rx hydrocodone 10 mg-acetaminophen 1 tab PO Q6H PRN pain #120 tabs 12/13/23 12/28/23 Rx 325 mg tablet pregabalin 150 mg capsule (Lyrica) 150 mg PO TID #90 caps 12/17/23 12/28/23 Rx oxycodone 5 mg tablet See Rx Instructions PO DAILY PRN 12/22/23 12/28/23 Rx C34.90, R91.8, M54.16, G89.29 #120 tabs blood sugar diagnostic (OneTouch #100 ea 12/27/23 12/27/23 Rx Ultra Test strips) levofloxacin 500 mg tablet 500 mg PO DAILY 12/28/23 12/28/23 History prochlorperazine maleate 10 mg 10 mg PO DIRECTED PRN 12/28/23 12/28/23 History tablet NAUSEA/VOMITING Past Med/Surg History Problem List (Updated 12/28/23 @ 16:42 by Andrea Allen MD) Diabetes Anemia Chest pain (Acute) Unusual change in behavior Small cell carcinoma of lower lobe of left lung (Chronic 10/25/23) Hypotension (Acute) Polypharmacy (Acute) Pneumonia (Acute) Lung cancer metastatic to brain (Acute) Abdominal pain (Acute) Vomiting (Acute) Altered mental status (Acute) Small cell lung cancer in adult Paroxysmal atrial fibrillation Pulmonary mass Acute and chronic respiratory failure Uncontrolled hypertension Pulmonary nodule Lumbar degenerative disc disease Low back pain radiating to left leg Encounter for examination following treatment at hospital Mass of lower lobe of left lung Reflux esophagitis Labile hypertension S/P coronary artery stent placement (2018) ? details Chest pain (Acute) Abscess of upper gum Acute bronchitis Cough Allergic rhinitis Dyspnea on exertion Routine health maintenance Trochanteric bursitis of both hips Stress bladder incontinence, female Smoker Insomnia (Chronic) HTN (hypertension), benign (Chronic) Left hip pain (Acute) Anxiety (Acute) Asthma (Chronic) Lyme disease (Chronic) Fibromyalgia (Chronic) Chronic radicular lumbar pain (Chronic) Hypothyroid (Chronic) COPD (chronic obstructive pulmonary disease) (Chronic) CVD (cardiovascular disease) (Chronic) Medical History Chronic respiratory failure Obesity Takotsubo cardiomyopathy history of Takotsubo cardiomyopathy per [facility] Aortic stenosis mild to moderate on 05/2023 echo (DAVIS 1.0 cm2, mean PG 15 mmHg) Aneurysmal dilatation AAA, 3.4 cm History of COVID-19 07/2023 Lumbar disc herniation Peripheral neuropathy bilateral legs Diabetes mellitus, type 2 Hx of deep venous thrombosis years ago Anxiety Coronary artery disease s/p 5 stents, last in 2018 Onychomycosis Hypotension still occurring occasionally Hypertensive urgency History of TIA (transient ischemic attack) 2018, no deficits History of myocardial infarction x 5 Surgical History S/P coronary artery stent placement (2014) RCA & LAD History of cardiac cath x 5 stents,between 2014- 2017, done in [place] History of cholecystectomy History of section History of coronary artery stent placement Family History Mother Myocardial infarction Daughter Myocardial infarction Denies family history of Ovarian cancer Prostate cancer Breast cancer Colorectal cancer Social History Smoking Status: Current every day smoker Tobacco Type: Cigarettes Cigarettes Per Day: 1 pk; Second Hand Exposure: No; Do You Dip or Chew Tobacco: No; Hx Alcohol Use: No Hx Substance Use: No Preferred Language: Citizen Of [place] Communication Ability: Effective Visual Impairment: No Limitations Production Underwriter Required: No Beliefs That Will Affect Care: Spiritual marital status: Current Living Situation: Spouse Current Living Situation Comment: and son current occupational status: disabled How many Children do You have: 6 Feels Safe at Home: Yes Childhood Exposure to Second-Hand Smoke: Yes Diet: diabetic and regular caffeine: Yes (Coffee) Dental Care, Regularly: No Physical Activity Frequency: Daily Physical Activity Frequency Comment: Daily housework/activites Seatbelt Use: always Sunscreen Use: No Assistive Devices: Bedside Commode and Nebulizer Physical Exam Physical Exam: General: A&Ox3. NAD. Cooperative. HEENT: Atraumatic, normocephalic. PERLAA. Vision/hearing intact Pulm: Scattered expiratory wheezing. Symmetrical chest rise. No increased work of breathing. No respiratory distress. Cardiac: RRR, soft sm. Radial pulses intact and symmetrical. Abdominal: Nontender, nondistended, soft. BS present. Results & Data Results & Data Vital Signs (Past 12 Hours) Vital Signs Temp Pulse Resp BP Pulse Ox O2 Del Method 12/28/23 15:20 86 17 93 12/28/23 15:10 85 19 92 12/28/23 15:02 85 22 96 12/28/23 15:02 135/74 12/28/23 15:00 88 19 95 12/28/23 14:55 88 22 94 12/28/23 14:55 138/81 12/28/23 14:25 94 Room Air 12/28/23 14:20 99 H 22 88 L 12/28/23 14:14 86 12/28/23 14:10 86 24 92 12/28/23 14:09 86 18 92 12/28/23 14:07 94 Room Air 12/28/23 14:07 94 Room Air 12/28/23 14:07 36.7 C 88 19 135/72 91 Room Air PG Care Time/CCT Total # of Minutes Spent Total Time Spent with Patient: Total time spent is greater than 50% in coordination of care (as documented) at patient's floor/unit and/or counseling patient: Coding Level of Care Code 17623 INT INP/OBS CARE 3/75MIN Diagnoses Abdominal pain R10.9 Lung cancer metastatic to brain C34.90; C79.31 Paroxysmal atrial fibrillation I48.0 HTN (hypertension), benign I10 Anemia D64.9 Diabetes E11.9
--- NOTE | 2023-12-28 15:49 | Electrocardiogram Report ---
Test Reason : Blood Pressure : / mmHG Vent. Rate : 087 BPM Atrial Rate : 087 BPM P-R Int : 184 ms QRS Dur : 092 ms QT Int : 390 ms P-R-T Axes : 059 019 108 degrees QTc Int : 469 ms Normal sinus rhythm Nonspecific ST and T wave abnormality Abnormal ECG When compared with ECG of 28-DEC-2023 14:07, (unconfirmed) ST now depressed in Anterior leads T wave inversion now evident in Anterior leads Confirmed by Juan Luis Arrieta ([id number]) on 12/28/2023 3:49:10 PM Referred By: REFERRED SELF Confirmed By:Juan Luis Arrieta
--- NOTE | 2023-12-28 16:27 | Electrocardiogram Report ---
Test Reason : Blood Pressure : / mmHG Vent. Rate : 084 BPM Atrial Rate : 084 BPM P-R Int : 184 ms QRS Dur : 096 ms QT Int : 382 ms P-R-T Axes : 045 030 086 degrees QTc Int : 451 ms Poor data quality, interpretation may be adversely affected Normal sinus rhythm Abnormal ECG When compared with ECG of 04-NOV-2023 04:23, QT has lengthened Confirmed by Juan Luis Arrieta ([id number]) on 12/28/2023 4:27:23 PM Referred By: REFERRED SELF Confirmed By:Juan Luis Arrieta
[2023-12-28] MEDS ORDERED: GLUCOSE 40% GEL 15 GM TUBE PO PRN (16:48)
[2023-12-28] MEDS ORDERED: CARBOHYDRATES FOR HYPOGLYCEMIA PO PRN (16:48)
[2023-12-28] MEDS ORDERED: GLUCAGON FOR INJ 1 MG VIAL SQ PRN (16:48)
[2023-12-28] MEDS ORDERED: DEXTROSE 50% 50 ML SYRINGE IV PRN (16:48)
[2023-12-28] MEDS ORDERED: GLUCOSE 10 TAB/TUBE PO PRN (16:48)
[2023-12-28] MEDS ORDERED: PHARMACY GLYCEMIC MGMT CONSULT PRN (16:48)
[2023-12-28] MEDS: PREGABALIN 150 MG CAP PO ONE (17:02)
[2023-12-28] MEDS: PREGABALIN 150 MG CAP PO SCH (17:02)
[2023-12-28 17:06] LABS: Ferritin 309.6 ng/ml (8-388)
[2023-12-28 17:10] LABS: Folate (Folic Acid),Ser orPlas 8.92 ng/ml (>5.38)
[2023-12-28] MEDS: METOPROLOL TARTRATE 25 MG TAB PO SCH (17:41)
[2023-12-28] MEDS ORDERED: ALBUTEROL HFA 8 GM INHALER INH PRN (19:01)
[2023-12-28] MEDS ORDERED: ACETAMINOPHEN 325 MG TAB PO PRN (19:01)
[2023-12-28] MEDS ORDERED: CETIRIZINE HCL 10 MG TABLET PO PRN (20:26)
[2023-12-28] MEDS: BUDESONIDE 0.5 MG/2 ML VIAL (PULMICORT) NEB SCH (20:46)
[2023-12-28] MEDS: FORMOTEROL 20 MCG/2 ML VIAL INH SCH (20:46)
[2023-12-28] MEDS: INSULIN ASPART PER UNIT CHARGE SC SCH (20:54)
[2023-12-28] MEDS: LORazepam 1 MG TAB PO PRN (20:55)
[2023-12-28] MEDS: ATORVASTATIN 40 MG TAB PO SCH (20:56)
[2023-12-28] MEDS ORDERED: METOPROLOL TARTRATE 25 MG TAB PO SCH (21:00)
[2023-12-28] MEDS: oxyCODONE HCL IR 5 MG TAB (IMMEDIATE RELEASE) PO PRN (21:03)
[2023-12-28] MEDS: NICOTINE 14 MG/24 HR PATCH TD SCH (22:04)
[2023-12-29 06:35] LABS: Hematocrit (blood only) 24.9 % (37.0-47.0); Hemoglobin 8.1 g/dl (12.0-16.0); Immature Granulocytes # (auto) 0.05 K/uL (0.01-0.20); Immature Granulocytes % (auto) 1.7 %; Lymphocytes # (auto) 0.16 K/uL (1.20-3.40); Lymphocytes % (auto) 5.3 %; Mean Corpuscular Hemoglobin 29.8 pg (25.0-34.0); Mean Corpuscular Hgb Conc 32.5 g/dL (32.0-36.0); Mean Corpuscular Volume 91.5 fL (80.0-100.0); Mean Platelet Volume 9.9 fL (9.4-12.4); Monocytes # (auto) 0.12 K/uL (0.11-0.59); Neutrophils # (auto) 2.68 K/uL (1.40-6.50); Platelet Count 263 K/uL (130-400); RDW Coefficient of Variation 21.6 % (11.5-14.5); RDW Standard Deviation 72.1 fL (36.4-46.3); Red Blood Count 2.72 M/uL (4.20-5.40); White Blood Count 3.01 K/ul (4.8-10.8)
[2023-12-29 06:47] LABS: BUN Creatinine Ratio 12.7 (10-20); Calcium 9.5 mg/dl (8.6-10.3); Creatinine Clr Calc Pharmacy 93.2 ml/min; Est GFR (African American) 104.3 ml/min; Potassium 4.8 mmol/L (3.5-5.1)
[2023-12-29 07:08] LABS: Anisocytosis Present; Polychromasia 1+
--- NOTE | 2023-12-29 07:20 | Hospitalist Progress Note ---
Date of Service December 29, 2023 Assessment & Plan (1) Abdominal pain: Plan: Chest pain Recurrent chest pain improved with nitro. Chest pain-free on initial assessment Troponin 228, repeat 201 EKG: subtle lateral ST changes not infarction Cardiology consulted, paroxysmal AF, diltiazem, recommended medical management starting Ranexa bid Patient previously on aspirin/Plavix/Eliquis, this was narrowed to aspirin/Eliquis last month. Details of PCI are unavailable in our system; patient does have a reported history of 4-5 stents between and history of Takotsubo cardiomyopathy in 2018. Follows with [facility]. (2) Lung cancer metastatic to brain: Plan: Small cell lung cancer, initially LLL palliative radiation therapy With intracranial metastatic disease Undergoing treatment with carboplatin/etoposide/atezolizumab/trilaciclib (3) HTN (hypertension), benign: Plan: History of hypertension Patient reports that more recently her blood pressures actually been very low with systolics dropping into the double digits after taking all of her morning medications at once. Due to that she has not taken her clonidine in several weeks, and blood pressure still drops with some lightheadedness in the mornings As she has not been on clonidine for at least 3 weeks she is not in a rebound/withdrawal timeframe and will discontinue this on admission Ideally patient will be on a beta-brianna given her underlying cardiac disease. Will hold diltiazem and start metoprolol tomorrow morning. She reports she did take her morning Eliquis, did not take aspirin but received this prehospital Continue isosorbide Lisinopril temporarily held due to patient report of hypertension, dose reduce if needed. (4) Anemia: Plan: Chronic anemia, now also leukopenia secondary to chemotherapy No abdominal pain, no acute bleeding She is a [employer] and cannot receive blood products Iron studies normal , B12/folate normal. (5) Diabetes: Plan: Basal bolus SSI while inpatient, orals held Goal BSG [id number] Plan Patient has a history of a stable infrarenal aneurysm. Patient was prescribed Levaquin prophylactically after chemo but has not started this, would defer fluoroquinolones due to underlying aneurysm. Follow fever curve. Empiric abx deferred on admit DVT prophylaxis: SCDs, Eliquis temporarily held pending additional evaluation and anemia evaluation CODE STATUS: Full code Admission and Anticipated Discharge Date Admission Date: December 28, 2023 Subjective pt feels much improved, has been seen by cardiology and started on Ranexa as feels medical management for potential CAD Pt is encouraged that her cancer seems to be responding to treatment encouraged to ambulate Physical Exam Physical Exam: pt is awake and alert, decreased breath sounds at the left base, cardiac is regular Results & Data Results & Data Vital Signs (Past 12 Hours) Vital Signs Temp Pulse Pulse Resp BP Pulse Ox O2 Del Method 12/29/23 03:01 98.1 F 75 18 116/61 90 Room Air 12/29/23 00:00 74 12/28/23 23:27 98.2 F 88 18 112/66 94 Room Air 12/28/23 20:47 72 18 93 Room Air 12/28/23 20:00 Room Air 12/28/23 19:57 97.7 F 72 18 112/62 91 Room Air 12/28/23 19:25 72 Laboratory Results reviewed cbc' reviewed chemistry PG Care Time/CCT Total # of Minutes Spent Total Time Spent with Patient: Total time spent is greater than 50% in coordination of care (as documented) at patient's floor/unit and/or counseling patient: Coding Level of Care Code 22447 SUB INP/OBS CARE 3/50MIN Diagnoses Abdominal pain R10.9 Lung cancer metastatic to brain C34.90; C79.31 HTN (hypertension), benign I10 Anemia D64.9 Diabetes E11.9
--- NOTE | 2023-12-29 08:19 | Pharmacy Report ---
Pharmacy Glycemic Short Note 2 - Date of Service December 29, 2023 - Glycemic Short BSG Results (Last 24 hours): 12/28/23 12/28/23 12/28/23 14:14 14:19 20:11 Glucose 225 H POC Glucose 319 H* POC Glucose (other) 227 H 12/28/23 12/28/23 12/29/23 20:15 23:40 06:03 Glucose 157 H POC Glucose 307 H* 171 H POC Glucose (other) 12/29/23 07:15 Glucose POC Glucose 177 H POC Glucose (other) OUTPATIENT ANTIDIABETIC REGIMEN: * Metformin 500mg BID * A1c: 6.3% 10/24/23 ASSESSMENT: * Patient presented after developing chest pain while receiving chemotherapy for small cell lung cancer with brain metastasis. Chest pain resolved with nitro. * Patient initially hyperglycemic last evening with BSG > 300 ng/dL. This has subsequently trended down after novolog last evening. Will tighten novolog parameters to a mild to moderately stressed weight based scale. PLAN FOR INPATIENT GLYCEMIC CONTROL: * Hold outpatient oral diabetes medications * Basal insulin * 5 units SC X1 * Bolus insulin * NovoLog per scale ACHS or Q6hrs while NPO * Goal Range: Low 110 mg/dL - High 140 mg/dL * Correction Factor: 35 mg/dL/unit * Nutritional / Prandial insulin per carb ratio of 1 unit per 12 grams CHO consumed
[2023-12-29] MEDS: LEVOTHYROXINE SODIUM 50 MCG TABLET PO SCH (08:57)
[2023-12-29] MEDS: UMECLIDINIUM BROMIDE 62.5MCG/BLISTER 7 PUFFS/INHALER INH SCH (08:57)
[2023-12-29] MEDS: OLANZAPINE 2.5 MG TAB PO PRN (08:58)
[2023-12-29] MEDS: ISOSORBIDE MONO EXTENDED REL 30 MG TABCR PO SCH (08:58)
[2023-12-29] MEDS: PANTOprazole 40 MG TAB PO SCH (08:58)
[2023-12-29] MEDS: ASPIRIN 81 MG ECTAB PO SCH (08:58)
[2023-12-29] MEDS: IRON SUCROSE 300 MG in SODIUM CHLORIDE 0.9% 250 ML IV SCH (08:59)
[2023-12-29] MEDS ORDERED: [UNRECOGNIZED DRUG - OTHER] transdermal SCH (09:00)
[2023-12-29] MEDS ORDERED: NICOTINE transdermal SCH (09:00)
[2023-12-29] MEDS ORDERED: NYSTATIN POWDER 15GM BTL EXT PRN (11:17)
[2023-12-29] MEDS: LANTUS PER UNIT CHARGE SC STA (12:28)
--- NOTE | 2023-12-29 13:27 | Cardiology Consultation ---
Date of Consultation December 29, 2023 Assessment & Plan (1) Chest pain: -current symptoms somewhat atypical, however, has known disease. -realizing her numerous comorbidities, especially metastatic lung carcinoma, would follow conservative care. -undertake a trial of ranolazine 500 mg b.i.d. (2) Coronary artery disease: -numerous intracoronary stents, details unknown. -interventions performed while living in [place]. -continue medical management as above. (3) Paroxysmal atrial fibrillation: -continue rate control and long-term anticoagulation. (4) Aortic stenosis: -mild in degree on echocardiogram, October 2023. -continued yearly surveillance echocardiograms. History of Present Illness Attending Physician: Salo Adams MD History of Present Illness Mrs. Santos is a 63-year-old female admitted yesterday with a chest pain syndr ome. This consultation was ordered to assist in her cardiac management. Of note, patient typically follows with Dr. Andrade in the outpatient setting. The patient was in usual state of health until yesterday when she was receiving chemotherapy in our oncology unit. She developed a stabbing substernal chest discomfort and was sent to the Emergency Room a for further evaluation. On arrival here, her initial high sensitivity troponin was elevated to 128, however, follow-up value decreased to 202. Her initial EKG showed nonspecific ST T wave changes. A CT scan of the chest ruled out a pulmonary embolism. The patient explains that she has had intermittent, stabbing, substernal chest pain over the last 1-2 weeks. This occurs spontaneously, however, has occurred several times with exertion. She does experience limiting dyspnea when climbing 1 flight of stairs. This remains in a stable pattern. The patient was recently diagnosed with metastatic small cell carcinoma of the lung (October 2023). She is currently undergoing treatment. She did have a Lexiscan stress test performed in October 2023 which showed a small area of apical ischemia. Left ventricular ejection fraction was normal 51%. Medical management was recommended. Currently, patient is resting comfortably in bed without complaints. Past medical and surgical history 1. Coronary artery disease 2. Multiple intracoronary [id number], [place] 3. Paroxysmal atrial fibrillation 4. Hypertension 5. Hypercholesterolemia 6. Aortic stenosis 7. History of Takotsubo cardiomyopathy-2017 8. Diabetes mellitus 9. Small cell lung carcinoma-October 2023 10. Brain metastases-October 2023 11. Anemia of chronic disease 12. Hypothyroidism 13. GERD 14. COPD 15. Anxiety 16. Lumbar disc disease 17. Cholecystectomy 18. Social history and lives with her Practicing [employer] Witness Smokes 1 pack of cigarettes daily, quit 5 days ago No alcohol Family history Early coronary artery disease in both parents and a brother Review of systems A 10 point review systems undertaken and negative except that described. Allergies Allergy/AdvReac Type Severity Reaction Status Date / Time latex Allergy Intermediate skin Verified 12/28/23 15:08 itching Influenza Virus Vaccines AdvReac Severe developed Verified 12/28/23 15:08 blood clots vaccine adjuvant system, AdvReac Severe blood clots Verified 12/28/23 15:08 AS01B liposomal [From Shingrix (PF)] varicella-zoster virus AdvReac Severe blood clots Verified 12/28/23 15:08 glycoprotein E, recombinant [From Shingrix (PF)] Home Medications Medication Instructions Recorded Confirmed Type aspirin 81 mg tablet,delayed 81 mg PO QAM 01/09/20 12/28/23 History release (Adult Low Dose Aspirin) levothyroxine 50 mcg tablet 50 mcg PO QAM 01/09/20 12/28/23 History (Synthroid) nitroglycerin 0.4 mg sublingual 0.4 mg sublingual Q5M PRN chest 01/14/23 12/28/23 Rx tablet pain #30 tabs levocetirizine 5 mg tablet (Xyzal) 5 mg PO DAILY PRN allergies 05/26/23 12/28/23 History Wheeled Walker #1 ea 06/16/23 12/27/23 Rx clonidine HCl 0.1 mg tablet 0.1 mg PO BID #180 tabs 06/18/23 12/28/23 Rx atorvastatin 40 mg tablet 40 mg PO HS #90 tabs 07/23/23 12/28/23 Rx nicotine 1 patch transdermal DAILY 09/17/23 12/28/23 History 21mg/24hr-14mg/24hr-7mg/24hr daily transderm patches,sequentl metformin 500 mg tablet 500 mg PO BID #60 tabs 10/27/23 12/28/23 Rx blood-glucose meter (Thinkorswim GroupTouch #1 ea 10/28/23 12/27/23 Rx Ultra2 Meter) lancets 33 gauge (OneTouch Delica #100 ea 10/28/23 12/27/23 Rx Plus Lancet) ondansetron HCl 4 mg tablet 4 mg PO QID PRN nausea and 10/28/23 12/28/23 Rx vomiting #120 tabs Hospital Bed Homecare #1 ea 11/04/23 12/27/23 Rx olanzapine 2.5 mg tablet 2.5 mg PO UD PRN n/v 11/04/23 12/28/23 History zolpidem 5 mg tablet 5 mg PO UD PRN Sleep 11/04/23 12/28/23 History WHEEL MOBILITY SCOOTER #1 ea 11/08/23 12/27/23 Rx Wheelchair (Manual) #1 ea 11/08/23 12/27/23 Rx lorazepam 1 mg tablet 1 mg PO TID PRN anxiety, cancer 11/09/23 12/28/23 Rx #90 tabs transport chair #1 ea 11/10/23 12/27/23 Rx Magic Mouthwash 300 mL mouthwash 10 ml mucous membrane ACHS PRN 11/22/23 12/28/23 Rx dysphagia #300 mL albuterol sulfate 90 mcg/actuation 2 puff inhalation QID PRN 11/22/23 12/28/23 Rx aerosol inhaler shortness of breath or wheezing #6.7 grams budesonide 0.5 mg/2 mL suspension 0.5 mg (2 mL) NEB BIDR #60 doses 11/22/23 12/28/23 Rx for nebulization formoterol fumarate 20 mcg/2 mL 20 mcg (2 mL) inhalation BIDR #60 11/22/23 12/28/23 Rx solution for nebulization doses (Perforomist) pantoprazole 40 mg tablet,delayed 40 mg PO QAM #90 tabs 11/22/23 12/28/23 Rx release umeclidinium 62.5 mcg/actuation 1 inh inhalation DAILY #30 ea 11/22/23 12/28/23 Rx blister powder for inhalation (Incruse Ellipta) clopidogrel 75 mg tablet (Plavix) 75 mg PO QAM #90 tabs 12/01/23 12/28/23 Rx apixaban 5 mg tablet (Eliquis) 5 mg PO BID #60 tabs 12/03/23 12/28/23 Rx diltiazem HCl 180 mg 180 mg PO QAM #30 caps 12/03/23 12/28/23 Rx capsule,extended release 24 hr isosorbide mononitrate 30 mg 30 mg PO QAM #30 tabs 12/03/23 12/28/23 Rx tablet,extended release 24 hr lisinopril 20 mg tablet 20 mg PO QAM #30 tabs 12/03/23 12/28/23 Rx hydrocodone 10 mg-acetaminophen 1 tab PO Q6H PRN pain #120 tabs 12/13/23 12/28/23 Rx 325 mg tablet pregabalin 150 mg capsule (Lyrica) 150 mg PO TID #90 caps 12/17/23 12/28/23 Rx oxycodone 5 mg tablet See Rx Instructions PO DAILY PRN 12/22/23 12/28/23 Rx C34.90, R91.8, M54.16, G89.29 #120 tabs blood sugar diagnostic (OneTouch #100 ea 12/27/23 12/27/23 Rx Ultra Test strips) levofloxacin 500 mg tablet 500 mg PO DAILY 12/28/23 12/28/23 History prochlorperazine maleate 10 mg 10 mg PO DIRECTED PRN 12/28/23 12/28/23 History tablet NAUSEA/VOMITING Patient History Medical History Chronic respiratory failure Obesity Takotsubo cardiomyopathy history of Takotsubo cardiomyopathy per [facility] Aortic stenosis mild to moderate on 05/2023 echo (DAVIS 1.0 cm2, mean PG 15 mmHg) Aneurysmal dilatation AAA, 3.4 cm History of COVID-19 07/2023 Lumbar disc herniation Peripheral neuropathy bilateral legs Diabetes mellitus, type 2 Hx of deep venous thrombosis years ago Anxiety Coronary artery disease s/p 5 stents, last in 2018 Onychomycosis Hypotension still occurring occasionally Hypertensive urgency History of TIA (transient ischemic attack) 2018, no deficits History of myocardial infarction x 5 Surgical History S/P coronary artery stent placement (2014) RCA & LAD History of cardiac cath x 5 stents,between 2014- 2017, done in [place] History of cholecystectomy History of section History of coronary artery stent placement Family History Mother Myocardial infarction Daughter Myocardial infarction Denies family history of Ovarian cancer Prostate cancer Breast cancer Colorectal cancer Social History Smoking Status: Former smoker Tobacco Type: Cigarettes Cigarettes Per Day: 1 pk; Second Hand Exposure: No; Do You Dip or Chew Tobacco: No; Hx Alcohol Use: No Hx Substance Use: No Preferred Language: Belarusian Communication Ability: Effective Visual Impairment: No Limitations Sack Repairer Required: No Beliefs That Will Affect Care: [employer] marital status: Current Living Situation: Spouse Current Living Situation Comment: and son current occupational status: disabled How many Children do You have: 6 Other Information That Helps Us Care for You: No Feels Safe at Home: Yes Safety Concerns: Feels Safe At This Time Childhood Exposure to Second-Hand Smoke: Yes Diet: diabetic and regular caffeine: Yes (Coffee) Dental Care, Regularly: No Physical Activity Frequency: Daily Physical Activity Frequency Comment: Daily housework/activites Seatbelt Use: always Sunscreen Use: No Assistive Devices: Hospital Bed, Nebulizer, Walker and Wheelchair Physical Exam Physical Exam: In general this is a well-developed well-nourished white female in no acute distress. HEENT exam is negative. Neck is supple with full carotid upstrokes. There are no carotid bruits. Jugular venous pressure is flat at 90. There is no thyromegaly. Cardiovascular exam reveals a regular rhythm with a normal S1 and S2. No S3, S4, or murmurs are noted. Lungs are clear without rales, rhonchi, or wheezes. Abdomen is soft and nontender without bruits. Extremities reveal intact radial artery pulses bilaterally. There is no peripheral edema. Results & Data Vital Signs (Past 12 Hours) Vital Signs Temp Pulse Pulse Resp BP Pulse Ox O2 Del Method 12/29/23 11:24 36.7 C 71 18 91/47 L 93 Room Air 12/29/23 11:00 71 12/29/23 08:24 70 18 96 Room Air 12/29/23 07:53 36.3 C L 90 20 101/60 91 Room Air 12/29/23 03:01 36.7 C 75 18 116/61 90 Room Air PG Care Time/CCT Total # of Minutes Spent Total Time Spent with Patient: Total time spent is greater than 50% in coordination of care (as documented) at patient's floor/unit and/or counseling patient: Coding Level of Care Code 38090 IN/OBS CONSULT LVL 4,60M Diagnoses Chest pain R07.2 Chest pain type: precordial pain Coronary artery disease I25.10 Paroxysmal atrial fibrillation I48.0 Aortic stenosis I35.0 (1) Chest pain Chest pain type: precordial pain Qualified Code(s): R07.2 - Precordial pain
[2023-12-29] MEDS: RANOLAZINE 500 MG ER TAB PO ONE (13:34)
--- NOTE | 2023-12-29 15:52 | XCELERA ---
[id number]
[2023-12-29] MEDS: ZOLPIDEM TARTRATE 5 MG TAB PO PRN (20:28)
[2023-12-29] MEDS: RANOLAZINE 500 MG ER TAB PO SCH (20:29)
[2023-12-29] MEDS: NITROGLYCERIN SL 0.4 MG/TAB TAB SL PRN (23:25)
[2023-12-30 06:49] LABS: Basophils # (auto) 0.01 K/uL (0.00-0.20); Basophils % (auto) 0.3 %; Hemoglobin 7.6 g/dl (12.0-16.0); Immature Granulocytes # (auto) 0.03 K/uL (0.01-0.20); Immature Granulocytes % (auto) 0.9 %; Lymphocytes # (auto) 0.33 K/uL (1.20-3.40); Lymphocytes % (auto) 10.4 %; Mean Corpuscular Hemoglobin 29.7 pg (25.0-34.0); Mean Corpuscular Hgb Conc 31.7 g/dL (32.0-36.0); Mean Corpuscular Volume 93.8 fL (80.0-100.0); Mean Platelet Volume 9.9 fL (9.4-12.4); Monocytes % (auto) 12.7 %; Neutrophils # (auto) 2.39 K/uL (1.40-6.50); Neutrophils % (auto) 75.7 %; Platelet Count 273 K/uL (130-400); RDW Coefficient of Variation 22.4 % (11.5-14.5); RDW Standard Deviation 76.1 fL (36.4-46.3); Red Blood Count 2.56 M/uL (4.20-5.40); White Blood Count 3.16 K/ul (4.8-10.8)
[2023-12-30 06:55] LABS: BUN Creatinine Ratio 25.3 (10-20); Calcium 9.5 mg/dl (8.6-10.3); Creatinine Clr Calc Pharmacy 80.5 ml/min; Est GFR (African American) 86.4 ml/min; Est GFR (Non-African American) 74.5 ml/min; Potassium 4.6 mmol/L (3.5-5.1)
[2023-12-30 07:28] LABS: Anisocytosis Present
[2023-12-30] MEDS: LANTUS PER UNIT CHARGE SC SCH (08:40)
[2023-12-30] MEDS: METOPROLOL SUCC 50MG EXT REL TAB PO SCH (08:44)
[2023-12-30] MEDS ORDERED: SODIUM CHLORIDE 0.65% NA SOLN 45 ML (OCEAN) PRN (10:14)
--- NOTE | 2023-12-30 11:34 | Cardiology Progress Note ---
Date of Service December 30, 2023 Assessment & Plan (1) Chest pain: Plan: -no exertional angina pectoris with ambulation today. -realizing her numerous comorbidities, especially metastatic lung carcinoma, would follow conservative care. -tolerating ranolazine 500 mg b.i.d. -stable for hospital discharge. -follow-up with Dr. Andrade as an outpatient. (2) Coronary artery disease: Plan: -numerous intracoronary stents, details unknown. -interventions performed while living in [place]. -continue medical management as above. (3) Paroxysmal atrial fibrillation: Plan: -continue rate control and long-term anticoagulation. (4) Aortic stenosis: Plan: -mild in degree on echocardiogram, October 2023. -continued yearly surveillance echocardiograms. Admission and Anticipated Discharge Date Admission Date: December 28, 2023 Subjective The patient is resting comfortably in bed without chest pain or dyspnea. She did ambulate in the hallway without exertional angina pectoris. Physical Exam Physical Exam: In general this is a well-developed well-nourished white female in no acute distress. HEENT exam is negative. Neck is supple with full carotid upstrokes. There are no carotid bruits. Jugular venous pressure is flat at 90. There is no thyromegaly. Cardiovascular exam reveals a regular rhythm with a normal S1 and S2. No S3, S4, or murmurs are noted. Lungs are clear without rales, rhonchi, or wheezes. Abdomen is soft and nontender without bruits. Extremities reveal intact radial artery pulses bilaterally. There is no peripheral edema. Results & Data Vital Signs (Past 12 Hours) Vital Signs Temp Pulse Resp BP Pulse Ox O2 Del Method 12/30/23 08:10 36.4 C L 61 18 133/78 99 Room Air 12/30/23 07:16 66 18 92 Room Air 12/30/23 03:11 36.5 C 60 18 114/63 95 Room Air Diagnostic Findings manager monitoring is benign. PG Care Time/CCT Total # of Minutes Spent Total Time Spent with Patient: Total time spent is greater than 50% in coordination of care (as documented) at patient's floor/unit and/or counseling patient: Coding Level of Care Code 61719 SUB INP/OBS CARE 3/50MIN Diagnoses Chest pain R07.2 Chest pain type: precordial pain Coronary artery disease I25.10 Paroxysmal atrial fibrillation I48.0 Aortic stenosis I35.0 (1) Chest pain Chest pain type: precordial pain Qualified Code(s): R07.2 - Precordial pain
--- NOTE | 2023-12-30 15:06 | Discharge Summary ---
Discharge Summary Date of Service December 30, 2023 Notes For Next Care Provider pt was started on Ranexa for the suspicion of cardiac disease, she did have improvement in symptoms. she also had her antihypertensive medications adjusted and transitioned to metoprolol Admission HPI Per Admitting Provider Sanjuanita is a 63-year-old female BIBA from [facility]. Undergoing tx for small cell. Trop at ccp 200s, EKG Hx 5 prior stents. Got ASA and nitro at [facility], pain free by time of ER assessment EKG suspicious for ST depressions, no elevations are noted CTA no PE Recurrent chest pain in ER --> nitro --> chest pain resolved, nitro paste placed ____ Sanjuanita is seen at the bedside with her family present. 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 Her chest pain did resolve after an aspirin and nitro, however then recurred and subsequently resolved again after having Nitropaste placed in the ER. She reports she has a history of 5 stents placed from [facility] in [place]. Her last stent was around 2017. She has a picture of her RCA stent card, does not have a picture of her other stent cards She reports that she has had return of her chest pain just in the last week. This was initially on exertion and lasted less than 5 minutes and resolved with nitro however has become more severe over the last few days. 48 hours ago she had her first episode of severe substernal chest pain which occurred at rest and took about 4 minutes to resolve with nitro. Does feel similar to when she had prior pain around her stents. She is very concerned that this could be related to her chemo regimen and has discussed this with her oncologist. Denies shortness of breath or difficulty breathing. Denies new orthopnea. Denies lightheadedness/dizziness/syncope/presyncope. She is chest pain-free at time of admitting assessment She is a [employer] and cannot take blood products. Denies any bleeding and has not had melena/hematochezia/hemoptysis. Is okay with iron levels/B12/folate being checked. Medical History: Reviewed Medications: Reviewed Surgical History: Reviewed Family history: Reviewed Allergies: Reviewed. [employer] cannot receive blood. Itching to latex Social History: 1-1.5 pack/day history since teenage years. Quit 2 days ago. Declines patch. Denies alcohol use Code Status: Full code Principal Dx & Hospital Course #1 = Principal Diagnosis (1) Chest pain: Chest pain Recurrent chest pain improved with nitro. Chest pain-free on initial assessment Troponin 228, repeat 201 EKG: subtle lateral ST changes not infarction Cardiology consulted, paroxysmal AF, diltiazem, recommended medical management starting Ranexa bid Patient previously on aspirin/Plavix/Eliquis, this was narrowed to aspirin/Eliquis last month. Details of PCI are unavailable in our system; patient does have a reported history of 4-5 stents between and history of Takotsubo cardiomyopathy in 2018. Follows with [facility]. (2) Lung cancer metastatic to brain: Small cell lung cancer, initially LLL palliative radiation therapy With intracranial metastatic disease Undergoing treatment with carboplatin/etoposide/atezolizumab/trilaciclib (3) HTN (hypertension), benign: History of hypertension Patient reports that more recently her blood pressures actually been very low with systolics dropping into the double digits after taking all of her morning medications at once. Due to that she has not taken her clonidine in several weeks, and blood pressure still drops with some lightheadedness in the mornings pt on isosorbide, metoprolol and ranexa ( for CAD) (4) Anemia: Chronic anemia, now also leukopenia secondary to chemotherapy No abdominal pain, no acute bleeding She is a [employer] and cannot receive blood products Iron studies normal , B12/folate normal. (5) Diabetes: return to home medications, basal bolus insulin Plan Patient has a history of a stable infrarenal aneurysm. Patient was prescribed Levaquin prophylactically after chemo but has not started this, would defer fluoroquinolones due to underlying aneurysm. Follow fever curve. Empiric abx deferred on admit CODE STATUS: Full code Updated Medication List Medication Instructions Recorded Confirmed Type aspirin 81 mg tablet,delayed 81 mg PO QAM 01/09/20 12/28/23 History release (Adult Low Dose Aspirin) levothyroxine 50 mcg tablet 50 mcg PO QAM 01/09/20 12/28/23 History (Synthroid) nitroglycerin 0.4 mg sublingual 0.4 mg sublingual Q5M PRN chest 01/14/23 12/28/23 Rx tablet pain #30 tabs levocetirizine 5 mg tablet (Xyzal) 5 mg PO DAILY PRN allergies 05/26/23 12/28/23 History Wheeled Walker #1 ea 06/16/23 12/27/23 Rx atorvastatin 40 mg tablet 40 mg PO HS #90 tabs 07/23/23 12/28/23 Rx nicotine 1 patch transdermal DAILY 09/17/23 12/28/23 History 21mg/24hr-14mg/24hr-7mg/24hr daily transderm patches,sequentl metformin 500 mg tablet 500 mg PO BID #60 tabs 10/27/23 12/28/23 Rx blood-glucose meter (SportisticTouch #1 ea 10/28/23 12/27/23 Rx Ultra2 Meter) lancets 33 gauge (OneTouch Delica #100 ea 10/28/23 12/27/23 Rx Plus Lancet) ondansetron HCl 4 mg tablet 4 mg PO QID PRN nausea and 10/28/23 12/28/23 Rx vomiting #120 tabs Hospital Bed Homecare #1 ea 11/04/23 12/27/23 Rx olanzapine 2.5 mg tablet 2.5 mg PO UD PRN n/v 11/04/23 12/28/23 History zolpidem 5 mg tablet 5 mg PO UD PRN Sleep 11/04/23 12/28/23 History WHEEL MOBILITY SCOOTER #1 ea 11/08/23 12/27/23 Rx Wheelchair (Manual) #1 ea 11/08/23 12/27/23 Rx lorazepam 1 mg tablet 1 mg PO TID PRN anxiety, cancer 11/09/23 12/28/23 Rx #90 tabs transport chair #1 ea 11/10/23 12/27/23 Rx Magic Mouthwash 300 mL mouthwash 10 ml mucous membrane ACHS PRN 11/22/23 12/28/23 Rx dysphagia #300 mL albuterol sulfate 90 mcg/actuation 2 puff inhalation QID PRN 11/22/23 12/28/23 Rx aerosol inhaler shortness of breath or wheezing #6.7 grams budesonide 0.5 mg/2 mL suspension 0.5 mg (2 mL) NEB BIDR #60 doses 11/22/23 12/28/23 Rx for nebulization formoterol fumarate 20 mcg/2 mL 20 mcg (2 mL) inhalation BIDR #60 11/22/23 12/28/23 Rx solution for nebulization doses (Perforomist) pantoprazole 40 mg tablet,delayed 40 mg PO QAM #90 tabs 11/22/23 12/28/23 Rx release umeclidinium 62.5 mcg/actuation 1 inh inhalation DAILY #30 ea 11/22/23 12/28/23 Rx blister powder for inhalation (Incruse Ellipta) clopidogrel 75 mg tablet (Plavix) 75 mg PO QAM #90 tabs 12/01/23 12/28/23 Rx apixaban 5 mg tablet (Eliquis) 5 mg PO BID #60 tabs 12/03/23 12/28/23 Rx isosorbide mononitrate 30 mg 30 mg PO QAM #30 tabs 12/03/23 12/28/23 Rx tablet,extended release 24 hr hydrocodone 10 mg-acetaminophen 1 tab PO Q6H PRN pain #120 tabs 12/13/23 12/28/23 Rx 325 mg tablet pregabalin 150 mg capsule (Lyrica) 150 mg PO TID #90 caps 12/17/23 12/28/23 Rx oxycodone 5 mg tablet See Rx Instructions PO DAILY PRN 12/22/23 12/28/23 Rx C34.90, R91.8, M54.16, G89.29 #120 tabs blood sugar diagnostic (OneTouch #100 ea 12/27/23 12/27/23 Rx Ultra Test strips) prochlorperazine maleate 10 mg 10 mg PO DIRECTED PRN 12/28/23 12/28/23 Histor y tablet NAUSEA/VOMITING metoprolol succinate 50 mg 50 mg PO DAILY #30 tabs 12/30/23 Rx tablet,extended release 24 hr ranolazine 500 mg tablet,extended 500 mg PO BID #60 tabs 12/30/23 Rx release,12 hr Hospital Stay Data Consultations 12/28/23 19:01 Consult Cardiology Routine Diagnostic Imagining Performed 12/28/23 14:11 CT angio chest PE protocol Stat Pending Results Patient Have Any Pending Studies at Discharge: No Discharge Instructions Given to Patient (Per Discharging Provider) please follow up with your primary care for continued evaluation of your blood pressure there are 2 new blood pressure/cardiac medicines in replace of 3 medicines that we are stopping Total Time Total Time Spent Total Time Spent (In Minutes): It required greater than 30 minutes to prepare this patient for discharge. Coding Level of Care Code 26605 INP/OBS DISCH >30 MIN Diagnoses Chest pain R07.2 Chest pain type: precordial pain Lung cancer metastatic to brain C34.90; C79.31 HTN (hypertension), benign I10 Anemia D64.9 Diabetes E11.9
--- NOTE | 2023-12-30 15:24 | Electrocardiogram Report ---
Test Reason : Blood Pressure : / mmHG Vent. Rate : 083 BPM Atrial Rate : 083 BPM P-R Int : 184 ms QRS Dur : 096 ms QT Int : 366 ms P-R-T Axes : 079 063 216 degrees QTc Int : 430 ms Normal sinus rhythm Abnormal ECG When compared with ECG of 28-DEC-2023 15:00, Nonspecific T wave abnormality now evident in Inferior leads T wave inversion no longer evident in Anterior leads T wave inversion now evident in Lateral leads Confirmed by Juan Luis Arrieta ([id number]) on 12/30/2023 3:24:33 PM Referred By: REFERRED SELF Confirmed By:Juan Luis Arrieta
== END 2023-12-30 12:49 | disposition home health service (06) | DRG 309 ==
LOC: ED 14:01 → 2E 16:29 → SUATTDRO 16:29 → 2E 19:35
DX: I25.10 Atherosclerotic heart disease of native coronary artery without angina pectoris; E11.9 Type 2 diabetes mellitus without complications; C34.32 Malignant neoplasm of lower lobe, left bronchus or lung; Z88.7 Allergy status to serum and vaccine; I10 Essential (primary) hypertension; Z79.82 Long term (current) use of aspirin; I35.0 Nonrheumatic aortic (valve) stenosis; Z79.84 Long term (current) use of oral hypoglycemic drugs; Z95.5 Presence of coronary angioplasty implant and graft; Z86.16 Personal history of COVID-19; F17.210 Nicotine dependence, cigarettes, uncomplicated; Z92.3 Personal history of irradiation; I48.0 Paroxysmal atrial fibrillation; D64.9 Anemia, unspecified; E03.9 Hypothyroidism, unspecified; Z79.890 Hormone replacement therapy; Z79.02 Long term (current) use of antithrombotics/antiplatelets; J44.9 Chronic obstructive pulmonary disease, unspecified; Z91.040 Latex allergy status; C79.31 Secondary malignant neoplasm of brain

== ENCOUNTER 2024-04-01 17:05 | Observation (INO) ==
[2024-04-01 18:38] LABS: Basophils # (auto) 0.02 K/uL (0.00-0.20); Basophils % (auto) 0.3 %; Eosinophils # (auto) 0.08 K/uL (0.00-0.50); Eosinophils % (auto) 1.3 %; Hematocrit (blood only) 37.9 % (37.0-47.0); Hemoglobin 12.2 g/dl (12.0-16.0); Immature Granulocytes # (auto) 0.05 K/uL (0.01-0.20); Immature Granulocytes % (auto) 0.8 %; Lymphocytes # (auto) 0.68 K/uL (1.20-3.40); Lymphocytes % (auto) 10.7 %; Mean Corpuscular Hemoglobin 28.4 pg (25.0-34.0); Mean Corpuscular Hgb Conc 32.2 g/dL (32.0-36.0); Mean Corpuscular Volume 88.3 fL (80.0-100.0); Mean Platelet Volume 10.9 fL (9.4-12.4); Monocytes # (auto) 0.65 K/uL (0.11-0.59); Monocytes % (auto) 10.2 %; Neutrophils % (auto) 76.7 %; Platelet Count 179 K/uL (130-400); RDW Coefficient of Variation 14.7 % (11.5-14.5); RDW Standard Deviation 47.5 fL (36.4-46.3); Red Blood Count 4.29 M/uL (4.20-5.40); White Blood Count 6.38 K/ul (4.8-10.8)
[2024-04-01] MEDS: MoRPHine SULFATE 4 MG/ML 1 ML CARP\\VIAL IV STA (18:42)
[2024-04-01] MEDS: SODIUM CHLORIDE 0.9% 1,000 ML IV SCH (18:42)
[2024-04-01] MEDS: ONDANSETRON INJ 2 MG/ML 2 ML VIAL IV STA (18:42)
--- NOTE | 2024-04-01 18:45 | Emergency Department Note ---
Impression & Plan Unwitnessed fall, Aspiration pneumonia, Elevated troponin, Cancer related pain ED Provider Note CHIEF COMPLAINT: Fall, "everything hurts" HISTORY OF PRESENT ILLNESS: This 64-year-old female patient presents to the emergency department via ambulance for evaluation after a fall. The patient states that she leaves sometime at around 3 AM, she went to the bathroom. She states the next thing she knew, it was about 9 AM and her found her lying on the floor. The patient states that it took about 2 hours to get her up because she was having muscle spasms. She states that she was on the floor until about 11 AM. The patient states she did pee and poop herself while on the floor. At this time, she states everything hurts. She is uncertain whether or not she hit her head. She does have some tenderness on the back of her head. She also complains of neck pain, bilateral arm and leg pain, abdominal pain, and back pain. The patient states she is feeling very thirsty. She does have a history of brain and lung cancer. She finished brain radiation last week. She denies any chest pain or shortness of breath. She denies any nausea or vomiting at this time. The patient has taken no medication for her pain. REVIEW OF SYSTEMS: A 10 system review of systems was performed with positives and pertinent negatives listed in the history of present illness. All other systems were reviewed and are negative. ALLERGIES: Latex, influenza vaccine, Shingrix PHYSICAL EXAM: VITALS: Vitals are noted on the nurse's note and reviewed by myself. Vital signs stable. GENERAL: This is a 64-year-old female, in no acute distress, nondiaphoretic, well-developed well-nourished. SKIN: The skin was without rashes, erythema, edema, or bruising. There is no tenting of the skin. Capillary refill less than 2 seconds. HEAD: Normocephalic atraumatic. EARS: External auditory canals clear, tympanic membranes pearly rojas without erythema or effusion bilaterally. No hemotympanum. Negative cunningham sign EYES: Pupils equal round and reactive to light and accommodation. Conjunctivae without injection, sclerae without icterus. Extraocular movements intact. NOSE: Patent, turbinates without inflammation or discharge. No sinus tenderness. MOUTH: Mucous membranes moist. Tonsils are not enlarged. Pharynx without erythema or exudate. Uvula midline. Airway patent. Tongue does not deviate. NECK: Supple without nuchal rigidity. No lymphadenopathy. Cervical spine is nontender. No JVD. HEART: Regular rate and rhythm without murmurs gallops or rubs. LUNGS: Clear to auscultation bilaterally without wheezes, rales or rhonchi. No retractions or accessory muscle use. ABDOMEN: Positive bowel sounds x 4. Soft, nontender, without masses or organomegaly. Mesa sign negative. No guarding or rebound tenderness. MUSCULOSKELETAL: No muscle atrophy, erythema, or edema noted. Full range of motion without joint tenderness in all extremities. No tenderness to palpation. Normal gait. Strength 5/5 throughout. NEURO: Patient was alert and oriented to person place and time. Normal sensation to light and sharp touch. Deep tendon reflexes 2+ throughout. No focal neurological deficits. An order was placed for continuous electronic device monitor. The monitor showed a normal sinus rhythm at a ventricular rate of 86 bpm, per my interpretation. EKG was reviewed by myself and found to be normal sinus rhythm at a rate of 86 beats per minute and per my interpretation reveals no ST elevation or depression. No T wave inversion. Patient does have a prolonged QT with a QTc of 476. When compared to EKG completed 12/29/2023, no significant change was noted. Imaging as interpreted by myself and the radiologist revealed no acute traumatic injury, with radiologist interpretation as above. I agree with the radiologist's findings as based upon my independent interpretation. There was concern for possible aspiration pneumonia with debris noted in the upper esophagus. EMERGENCY DEPARTMENT COURSE: The patient was seen and evaluated as above. The patient presents by ambulance for evaluation after a fall. The patient believes she fell at approximately 3 AM. She was found on the floor at 9 AM by her . The patient does not recall the fall at all. She is uncertain whether or not she struck her head, but is complaining of some head pain. On examination, the patient is complaining of diffuse pain in her head, neck, all extremities, as well as her torso. I did recommend thorough evaluation due to the prolonged downtime on the floor as well as the traumatic injury which was not witnessed and the patient is unable to recall the events. IV access was obtained, labs were drawn. Patient was medicated with IV morphine and Zofran. Patient was hydrated with IV fluids. Labs were reviewed. Per my interpretation, there is no concerning leukocytosis or anemia. No thrombocytopenia. INR is 1.0. Renal, hepatic function and electrolytes without acute abnormality. Troponin is elevated at 667.3 on initial evaluation. Repeat troponin completed approximately 2 hours later was 707.8. CK is 59. Urinalysis was positive for leukocyte esterase and red blood cells. Medical alcohol is negative. Urine drug screen is positive for marijuana and opiates. CT imaging of the head, cervical spine, chest, abdomen, and pelvis was completed and reviewed by myself and radiologist as noted. No acute traumatic findings. There was concern for debris within the upper esophagus. When I spoke with the patient on reassessment, she notes she has been eating Italian fries since arrival to the emergency department despite being advised not to have anything to eat or drink until her evaluation is completed. There was concern for possible aspiration pneumonia on CT of the chest. The patient is requesting additional pain medication. Patient medicated with her home dose of OxyContin 30 mg which she is due for this evening. It is unclear whether or not the patient took any of her additional home medications earlier in the day. I discussed findings with the patient at bedside. Given the elevated troponin as well as prolonged downtime on the floor and unknown etiology of the fall, I did recommend inpatient care. The patient was agreeable. The patient will be admitted to the [facility] hospitalist service. I did discuss the case with Agustín Mckeon PA-C and Dr. Naranjo. Please see hospitalist dictation regarding ongoing management and care of this patient. Case was discussed with the attending physician. This visit is during a period of high volume and high acuity in the emergency department. I attest that I have personally reviewed the patient medication list. I attest that I have reviewed the patient's blood pressure and it was found to be elevated. Referred to PCP. GCS: 15 In the evaluation and treatment of this patient the following differential diagnoses were entertained: Fracture, dislocation, contusion, intra-abdominal, pneumothorax, intrathoracic, intracranial, neurologic, compartment syndrome, rhabdomyolysis, as well as other pathologies. The chart was completed utilizing [employer] voice recognition software. Grammatical errors, random word insertions, pronoun errors, and incomplete sentences are an occasional consequence of this system due to software limitations, ambient noise, and hardware issues. Any formal questions or concerns about the content, text, or information contained within the body of this dictation should be directly addressed to the provider for clarification. 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 details Chest pain (Acute) Abscess of upper gum Acute bronchitis Cough Allergic rhinitis Dyspnea on exertion Routine health maintenance Trochanteric bursitis of both hips Stress bladder incontinence, female Smoker Insomnia (Chronic) HTN (hypertension), benign (Chronic) Left hip pain (Acute) Anxiety (Acute) Asthma (Chronic) Lyme disease (Chronic) Fibromyalgia (Chronic) Chronic radicular lumbar pain (Chronic) Hypothyroid (Chronic) COPD (chronic obstructive pulmonary disease) (Chronic) CVD (cardiovascular disease) (Chronic) Medical History Refusal of blood transfusions as patient is Baptism Lung cancer metastatic to brain Paroxysmal atrial fibrillation Aortic stenosis mild to moderate on 05/2023 echo (DAVIS 1.0 cm2, mean PG 15 mmHg) Coronary artery disease s/p 5 stents, last in 2018 Chronic respiratory failure Obesity Takotsubo cardiomyopathy history of Takotsubo cardiomyopathy per [place] [facility] Aneurysmal dilatation AAA, 3.4 cm History of COVID-19 07/2023 Lumbar disc herniation Peripheral neuropathy bilateral legs Diabetes mellitus, type 2 Hx of deep venous thrombosis years ago Anxiety Onychomycosis Hypotension still occurring occasionally Hypertensive urgency History of TIA (transient ischemic attack) 2018, no deficits History of myocardial infarction x 5 Surgical History History of cardiac cath History of cholecystectomy History of section History of coronary artery stent placement Family History Mother Myocardial infarction Daughter Myocardial infarction Denies family history of Ovarian cancer Prostate cancer Breast cancer Colorectal cancer Social History Smoking Status: Current every day smoker Tobacco Type: Cigarettes Age Started Using Tobacco: 15; packs per day: 1; Cigarettes Per Day: .5 to 1 pk -has cut back; Second Hand Exposure: No; Do You Dip or Chew Tobacco: No; Hx Alcohol Use: No Hx Substance Use: No Preferred Language: South African Communication Ability: Effective Visual Impairment: No Limitations Facilities Locator Required: No Beliefs That Will Affect Care: Moravian marital status: Current Living Situation: Spouse Current Living Situation Comment: and son current occupational status: disabled How many Children do You have: 6 Feels Safe at Home: Yes Childhood Exposure to Second-Hand Smoke: Yes Diet: diabetic and regular caffeine: Yes (Coffee) Dental Care, Regularly: No Physical Activity Frequency: Daily Physical Activity Frequency Comment: Daily housework/activites Seatbelt Use: always Sunscreen Use: No Assistive Devices: Hospital Bed, Nebulizer, Walker and Wheelchair Allergies Allergies Allergy/AdvReac Type Severity Reaction Status Date / Time latex Allergy Intermediate skin Verified 03/31/24 14:52 itching Influenza Virus Vaccines AdvReac Severe developed Verified 03/31/24 14:52 blood clots vaccine adjuvant system, AdvReac Severe blood clots Verified 03/31/24 14:52 [id number] liposomal [From Shingrix (PF)] varicella-zoster virus AdvReac Severe blood clots Verified 03/31/24 14:52 glycoprotein E, recombinant [From Shingrix (PF)] Home Meds Home Medications Medication Instructions Recorded Confirmed levothyroxine 50 mcg tablet 50 mcg PO QAM 01/09/20 04/01/24 (Synthroid) levocetirizine 5 mg tablet (Xyzal) 5 mg PO DAILY PRN allergies 05/26/23 04/01/24 nicotine 1 patch transdermal DAILY 09/17/23 04/01/24 21mg/24hr-14mg/24hr-7mg/24hr daily transderm patches,sequentl olanzapine 2.5 mg tablet 2.5 mg PO UD PRN n/v 11/04/23 04/01/24 zolpidem 5 mg tablet 5 mg PO UD PRN Sleep 11/04/23 04/01/24 prochlorperazine maleate 10 mg 10 mg PO DIRECTED PRN 12/28/23 04/01/24 tablet NAUSEA/VOMITING metformin 500 mg tablet 500 mg PO BID 03/01/24 04/01/24 Previous Rx's Medication Instructions Recorded nitroglycerin 0.4 mg sublingual 0.4 mg sublingual Q5M PRN chest 01/14/23 tablet pain #30 tabs Wheeled Walker #1 ea 06/16/23 atorvastatin 40 mg tablet 40 mg PO HS #90 tabs 07/23/23 blood-glucose meter (OneTouch #1 ea 10/28/23 Ultra2 Meter) lancets 33 gauge (OneTouch Delica #100 ea 10/28/23 Plus Lancet) ondansetron HCl 4 mg tablet 4 mg PO QID PRN nausea and 10/28/23 vomiting #120 tabs Hospital Bed Homecare #1 ea 11/04/23 WHEEL MOBILITY SCOOTER #1 ea 11/08/23 Wheelchair (Manual) #1 ea 11/08/23 transport chair #1 ea 11/10/23 Magic Mouthwash 300 mL mouthwash 10 ml mucous membrane ACHS PRN 11/22/23 dysphagia #300 mL pantoprazole 40 mg tablet,delayed 40 mg PO QAM #90 tabs 11/22/23 release isosorbide mononitrate 30 mg 30 mg PO QAM #30 tabs 12/03/23 tablet,extended release 24 hr blood sugar diagnostic (OneTouch #100 ea 12/27/23 Ultra Test strips) metoprolol succinate 50 mg 50 mg PO DAILY #30 tabs 12/30/23 tablet,extended release 24 hr ranolazine 500 mg tablet,extended 500 mg PO BID #60 tabs 12/30/23 release,12 hr lorazepam 1 mg tablet 1 mg PO TID PRN anxiety, cancer 02/08/24 #90 tabs albuterol sulfate 90 mcg/actuation 2 puff inhalation QID PRN 02/11/24 aerosol inhaler shortness of breath or wheezing #6.7 grams promethazine 6.25 mg-codeine 10 5 ml PO Q8H PRN cough #473 mL 02/11/24 mg/5 mL syrup umeclidinium 62.5 mcg/actuation 1 inh inhalation DAILY #30 ea 02/11/24 blister powder for inhalation (Incruse Ellipta) apixaban 5 mg tablet (Eliquis) 5 mg PO BID #60 tabs 02/14/24 budesonide 0.5 mg/2 mL suspension 0.5 mg (2 mL) NEB BID #60 doses 02/24/24 for nebulization formoterol fumarate 20 mcg/2 mL 20 mcg (2 mL) inhalation BIDR #60 02/28/24 solution for nebulization doses (Perforomist) pregabalin 150 mg capsule (Lyrica) 150 mg PO TID #90 caps 03/03/24 oxycodone-acetaminophen 10 mg-325 1 tab PO Q4H PRN pain #180 tabs 03/27/24 mg tablet (Percocet) nitrofurantoin 100 mg PO Q12H 7 days #14 caps 03/28/24 monohydrate/macrocrystals 100 mg capsule (Macrobid) Emotional Support Animal #1 ea 03/31/24 oxycodone 40 mg tablet,crush 40 mg PO BID #60 tabs 03/31/24 resistant,extended release 12 hr Results & Data (ED) Vital Signs Vital Signs - 24 hr 04/01/24 17:15 04/01/24 17:49 04/01/24 18:26 Temperature Temperature Source Pulse Rate 84 86 Pulse Rate [Apical] Pulse Rhythm Regular Pulse Strength Normal Respiratory Rate 20 Respiratory Effort / Characteristics Non-Labored Respiratory Depth Normal Respiratory Pattern Regular Blood Pressure 141/95 H Blood Pressure [Left Arm] Blood Pressure Mean 110 Blood Pressure Mean [Left Arm] Blood Pressure Position Lying Blood Pressure Position [Left Arm] Pulse Oximetry 93 92 Oxygen Delivery Method Room Air Room Air Sepsis Recent Fever Within 48 Hours No Sepsis New/Unexplained Change in Mental Status No Sepsis Action Taken by Nursing No Action Required 04/01/24 19:38 Temperature 37.2 C Temperature Source Oral Pulse Rate Pulse Rate [Apical] 77 Pulse Rhythm Pulse Strength Respiratory Rate 15 Respiratory Effort / Characteristics Non-Labored Spontaneous Respiratory Depth Normal Respiratory Pattern Regular Blood Pressure Blood Pressure [Left Arm] 109/61 Blood Pressure Mean Blood Pressure Mean [Left Arm] 77 Blood Pressure Position Blood Pressure Position [Left Arm] Semi-fowlers Pulse Oximetry 96 Oxygen Delivery Method Room Air Sepsis Recent Fever Within 48 Hours Sepsis New/Unexplained Change in Mental Status Sepsis Action Taken by Nursing Laboratory Data 04/01/24 17:18 04/01/24 17:18 Lab Results 04/01/24 04/01/24 04/01/24 Range/Units 17:18 18:50 19:27 WBC 6.38 (4.8-10.8) K/ul RBC 4.29 (4.20-5.40) M/uL Hgb 12.2 (12.0-16.0) g/dl POC Hgb 11.9 L (12.0-16.0) g/dl Hct 37.9 (37.0-47.0) % POC Hct 35 L (37-47) % MCV 88.3 (80.0-100.0) fL MCH 28.4 (25.0-34.0) pg MCHC 32.2 (32.0-36.0) g/dL RDW Std Deviation 47.5 H (36.4-46.3) fL RDW Coeff of Chanel 14.7 H (11.5-14.5) % Plt Count 179 (130-400) K/uL MPV 10.9 (9.4-12.4) fL Immature Gran % (Auto) 0.8 % Neut % (Auto) 76.7 % Lymph % (Auto) 10.7 % Simpson % (Auto) 10.2 % Eos % (Auto) 1.3 % Baso % (Auto) 0.3 % Neut # (Auto) 4.90 (1.40-6.50) K/uL Lymph # (Auto) 0.68 L (1.20-3.40) K/uL Simpson # (Auto) 0.65 H (0.11-0.59) K/uL Eos # (Auto) 0.08 (0.00-0.50) K/uL Baso # (Auto) 0.02 (0.00-0.20) K/uL Immature Gran # (Auto) 0.05 (0.01-0.20) K/uL PT 10.8 (9.0-12.0) Seconds INR 1.0 (0.9-1.1) POC Sodium 131 L (135-144) mmol/L Sodium 130 L (136-145) mmol/L POC Potassium 4.1 (3.3-5.0) mmol/L Potassium 4.2 (3.5-5.1) mmol/L POC Chloride 94 L (101-112) mmol/L Chloride 94 L (98-107) mmol/L Carbon Dioxide 29 (21-32) mmol/L POC Total CO2 27 (24-31) mmol/L Anion Gap 7 (3-11) POC Anion Gap 15.0 L (16-25) mmol/L POC BUN 14 (7-18) mg/dl BUN 15 (6-23) mg/dl Creatinine 0.75 (0.6-1.2) mg/dl POC Creatinine 0.8 (0.6-1.3) mg/dl Est Cr Clr Drug Dosing 86.1 ml/min Est GFR ( Amer) 96.9 ml/min Est GFR (Non-Af Amer) 83.6 ml/min BUN/Creatinine Ratio 20.0 (10-20) Glucose 160 H (70-99(Fasting)) mg/dl POC Glucose (other) 115 H (70-99) mg/dl Lactate 0.7 (0.4-2.0) mmol/L Calcium 9.7 (8.6-10.3) mg/dl POC Ioniz Calcium Mariann 1.18 (1.12-1.32) mmol/l Total Bilirubin 0.6 (0.2-1.0) mg/dl AST 42 H (13-39) U/L ALT 28 (7-52) U/L Alkaline Phosphatase 84 (34-104) U/L Total Creatine Kinase 59 (26-192) U/L Troponin I High Sens 667.3 H* 707.8 H* (0-14) pg/ml Total Protein 7.0 (6.0-8.3) gm/dl Albumin 3.8 (3.4-5.0) gm/dl Globulin 3.2 (2.5-4.0) gm/dl Albumin/Globulin Ratio 1.2 (0.9-2) Urine Color Urine Appearance (Clear) Urine pH (4.5-7.5) Ur Specific [place] (1.000-1.030) Urine Protein (Negative) Urine Glucose (UA) (Negative) Urine Ketones (Negative) Urine Blood (Negative) Urine Nitrite (Negative) Urine Bilirubin (Negative) Urine Urobilinogen (Negative) Ur Leukocyte Esterase (Negative) Urine WBC (Auto) (0-5) /hpf Urine RBC (Auto) (0-2) /hpf U Hyaline Cast (Auto) (0-2) /lpf U Epithel Cells (Auto) (0-2) /hpf Urine Bacteria (Auto) (None Seen) Urine Opiates Screen (Neg) Ur Methadone, Qual (Neg) Urine Fentanyl Screen (Neg) Urine Barbiturates (Neg) Ur Phencyclidine (PCP) (Neg) U Amphetamin/Meth Scrn (Neg) MDMA (Ecstasy) Screen (Neg) U Benzodiazepines Scrn (Neg) Ur Cocaine Metabolite (Neg) U Marijuana (THC) Screen (Neg) Ethyl Alcohol mg/dL < 10.0 (<10.0) mg/dl 04/01/24 Range/Units 19:53 WBC (4.8-10.8) K/ul RBC (4.20-5.40) M/uL Hgb (12.0-16.0) g/dl POC Hgb (12.0-16.0) g/dl Hct (37.0-47.0) % POC Hct (37-47) % MCV (80.0-100.0) fL MCH (25.0-34.0) pg MCHC (32.0-36.0) g/dL RDW Std Deviation (36.4-46.3) fL RDW Coeff of Chanel (11.5-14.5) % Plt Count (130-400) K/uL MPV (9.4-12.4) fL Immature Gran % (Auto) % Neut % (Auto) % Lymph % (Auto) % Simpson % (Auto) % Eos % (Auto) % Baso % (Auto) % Neut # (Auto) (1.40-6.50) K/uL Lymph # (Auto) (1.20-3.40) K/uL Simpson # (Auto) (0.11-0.59) K/uL Eos # (Auto) (0.00-0.50) K/uL Baso # (Auto) (0.00-0.20) K/uL Immature Gran # (Auto) (0.01-0.20) K/uL PT (9.0-12.0) Seconds INR (0.9-1.1) POC Sodium (135-144) mmol/L Sodium (136-145) mmol/L POC Potassium (3.3-5.0) mmol/L Potassium (3.5-5.1) mmol/L POC Chloride (101-112) mmol/L Chloride (98-107) mmol/L Carbon Dioxide (21-32) mmol/L POC Total CO2 (24-31) mmol/L Anion Gap (3-11) POC Anion Gap (16-25) mmol/L POC BUN (7-18) mg/dl BUN (6-23) mg/dl Creatinine (0.6-1.2) mg/dl POC Creatinine (0.6-1.3) mg/dl Est Cr Clr Drug Dosing ml/min Est GFR ( Amer) ml/min Est GFR (Non-Af Amer) ml/min BUN/Creatinine Ratio (10-20) Glucose (70-99(Fasting)) mg/dl POC Glucose (other) (70-99) mg/dl Lactate (0.4-2.0) mmol/L Calcium (8.6-10.3) mg/dl POC Ioniz Calcium Mariann (1.12-1.32) mmol/l Total Bilirubin (0.2-1.0) mg/dl AST (13-39) U/L ALT (7-52) U/L Alkaline Phosphatase (34-104) U/L Total Creatine Kinase (26-192) U/L Troponin I High Sens (0-14) pg/ml Total Protein (6.0-8.3) gm/dl Albumin (3.4-5.0) gm/dl Globulin (2.5-4.0) gm/dl Albumin/Globulin Ratio (0.9-2) Urine Color Dark Yellow Urine Appearance Clear (Clear) Urine pH 6.0 (4.5-7.5) Ur Specific [place] 1.044 H (1.000-1.030) Urine Protein Negative (Negative) Urine Glucose (UA) Negative (Negative) Urine Ketones Negative (Negative) Urine Blood Negative (Negative) Urine Nitrite Negative (Negative) Urine Bilirubin Negative (Negative) Urine Urobilinogen Negative (Negative) Ur Leukocyte Esterase Trace H (Negative) Urine WBC (Auto) 0-5 (0-5) /hpf Urine RBC (Auto) 3-5 H (0-2) /hpf U Hyaline Cast (Auto) 3-5 H (0-2) /lpf U Epithel Cells (Auto) 0-2 (0-2) /hpf Urine Bacteria (Auto) None Seen (None Seen) Urine Opiates Screen Pos H (Neg) Ur Methadone, Qual Neg (Neg) Urine Fentanyl Screen Neg (Neg) Urine Barbiturates Neg (Neg) Ur Phencyclidine (PCP) Neg (Neg) U Amphetamin/Meth Scrn Neg (Neg) MDMA (Ecstasy) Screen Neg (Neg) U Benzodiazepines Scrn Neg (Neg) Ur Cocaine Metabolite Neg (Neg) U Marijuana (THC) Screen Pos H (Neg) Ethyl Alcohol mg/dL (<10.0) mg/dl Administered Medications Nitrofurantoin Macrocrystals (Nitrofurantoin Monohydrate 100 Mg Cap) 100 mg PO BIDM [facility] Stop: 04/08/24 08:01 Last Admin: 04/01/24 22:51 Dose: Not Given Documented By: JOSSELYN Oxycodone HCl (Oxycodone Hcl 20 Mg Tabcr (Oxycontin)) 40 mg PO BID TANIA Stop: 04/15/24 22:44 Last Admin: 04/01/24 23:01 Dose: 40 mg Documented By: JOSSELYN Discontinued Medications Albuterol (Albut/Ipratrop 3mg/0.5mg Neb 3 Ml Vial) 3 ml NEB NOW STA; Protocol Stop: 04/01/24 21:10 Last Admin: 04/01/24 21:35 Dose: 3 ml Documented By: LORENA Sodium Chloride (Nss) 1,000 mls @ 999 mls/hr IV .Q1H1M TANIA Stop: 04/01/24 19:30 Last Infusion: 04/01/24 20:49 Dose: Infused Documented By: Admin: 04/01/24 18:42 Dose: 999 mls/hr Documented By: NICOLASA Ampicillin Sodium/Sulbactam Sodium (Unasyn) 3,000 mg in 100 mls @ 200 mls/hr IV ONE STA Stop: 04/01/24 21:44 Last Infusion: 04/01/24 22:05 Dose: Infused Documented By: Admin: 04/01/24 21:35 Dose: 200 mls/hr Documented By: LORENA Insulin Aspart (Insulin Aspart Per Unit Charge) 0 units SC ONE STA Stop: 04/01/24 21:17 Last Admin: 04/01/24 21:33 Dose: 1 units Documented By: LORENA Co-signed By: AURELIA Ioversol (Optiray 320 100ml) 90 ml IV ONCE ONE Stop: 04/01/24 19:29 Last Admin: 04/01/24 19:28 Dose: 90 ml Documented By: LENORE Morphine Sulfate (Morphine Sulfate 4 Mg/Ml 1 Ml Carp\\Vial) 4 mg IV NOW STA Stop: 04/01/24 18:27 Last Admin: 04/01/24 18:42 Dose: 4 mg Documented By: NICOLASA Ondansetron HCl (Ondansetron Inj 2 Mg/Ml 2 Ml Vial) 4 mg IV NOW STA Stop: 04/01/24 18:27 Last Admin: 04/01/24 18:42 Dose: 4 mg Documented By: NICOLASA Oxycodone HCl (Oxycodone Hcl 20 Mg Tabcr (Oxycontin)) 20 mg PO NOW STA Stop: 04/01/24 19:46 Last Admin: 04/01/24 20:01 Dose: 20 mg Documented By: LORENA Oxycodone HCl (Oxycodone Hcl 10 Mg Tabcr (Oxycontin)) 10 mg PO NOW STA Stop: 04/01/24 19:46 Last Admin: 04/01/24 20:01 Dose: 10 mg Documented By: LORENA Pregabalin (Pregabalin 150 Mg Cap) 150 mg PO ONE ONE Stop: 04/01/24 22:34 Last Admin: 04/01/24 23:01 Dose: 150 mg Documented By: OJSSELYN Ranolazine (Ranolazine 500 Mg Er Tab) 500 mg PO NOW STA Stop: 04/01/24 21:41 Last Admin: 04/01/24 22:31 Dose: 500 mg Documented By: JOSSELYN Imaging Data Radiologist's Impression: Abdomen/Pelvis CT 04/01/24 18:27 CT SCAN OF THE CHEST, ABDOMEN, AND PELVIS WITH IV CONTRAST CLINICAL HISTORY: Trauma. Fall. COMPARISON STUDY: Chest CT dated 12/28/2023. Abdominal CT dated 11/04/2023. PET/CT dated 09/09/2023. TECHNIQUE: Following the IV administration of 90 of Optiray 320, CT scan of the chest, abdomen, and pelvis was performed from the thoracic inlet to the proximal femora. Images are reviewed in the axial, sagittal, and coronal planes. IV contrast was administered without complication. A dose lowering technique was utilized adhering to the principles of ALARA. FINDINGS: CHEST: Thyroid: Imaged portions of the thyroid gland are normal in size and attenuation. Thoracic aorta: There is atherosclerotic calcification of the thoracic aorta, which is normal in caliber and demonstrates standard 3-vessel arch anatomy. No dissection is seen. Pulmonary vasculature: The pulmonary trunk is normal in caliber. There are no filling defects identified in the central pulmonary vessels to indicate pulmonary embolus. Note that this examination was not protocoled for evaluation of the pulmonary arteries. Heart: A right-sided PICC line is in place. The heart is normal in size and without pericardial effusion. The coronary arteries are densely calcified. Lungs and pleural spaces: Emphysematous change is noted. There is airspace consolidation/fibrosis seen throughout the left lung with architecture distortion and significant volume loss. This has significantly progressed from 12/27/2021. The left lower lobe mass lesion seen previously has decreased in size from previous. A residual masslike opacity at this site measures up to 5.2 cm seen on image #165. The irregular left apical nodule seen previously is not well-visualized. There are scarlike opacities in the anterior left upper lobe. There is compensatory hyperinflation of the right lung. Scarring/atelectasis is seen at the right lung base. The right lung is otherwise clear. No pneumothorax is seen. There is trace pleural fluid on the left. The trachea and central airways are clear. Mediastinum: There is no mediastinal hematoma or lymphadenopathy. Esophagus: The esophagus is widely dilated and filled with debris to the level of the thoracic inlet. Christy: The left hilum is obscured. No right hilar adenopathy is seen. Axillae: There is no axillary lymphadenopathy. Bony thorax: The skeletal structures are osteopenic. Mild degenerative change is noted in the thoracic spine. No lytic or blastic lesions are identified. ABDOMEN AND PELVIS: Liver: The contrast-enhanced liver is enlarged, measuring 21.3 cm in length. The liver is otherwise normal in contour and attenuation. There is mild intrahepatic biliary ductal dilatation. The hepatic veins and portal veins are patent. A clip or metallic foreign body is seen in the right hepatic lobe on image #133. This is unchanged. A 15 mm ovoid hypodense nodule along the inferior aspect of the liver on image #154 is unchanged and may represent a dropped gallstone. Gallbladder: Surgically absent noting clips in the gallbladder fossa. Spleen: The spleen is enlarged measuring 15.0 cm in length. Pancreas: Unremarkable. Adrenal glands: Unremarkable. Kidneys: There is asymmetric cortical atrophy of the left kidney as compared to the right. No hydronephrosis is seen. There is heterogeneously diminished enhancement of the left kidney as compared to the right. A 2 cm cyst is seen in the left upper pole. There is a punctate nonobstructing right renal calculus. Abdominal vasculature: There is advanced atherosclerotic calcification and ectasia of the abdominal aorta. There is nonaneurysmal dilatation of the infrarenal abdominal aorta which measures up to 3.7 cm in maximum diameter. Bowel: There is no bowel obstruction. Twar-zg-vulltedg fecal retention is seen throughout the colon. The appendix is well-visualized and normal. Peritoneum: There is no intraperitoneal free air or abdominal ascites. Lymphadenopathy: None. Pelvic viscera: The bladder, uterus, and adnexa are normal as visualized. Skeletal structures: The skeletal structures are osteopenic. The lumbosacral spine, bony pelvis, and proximal femora appear intact. There is desy-wo-bmaircda lumbosacral spondylosis. A hemangioma is seen in the body of L3. No lytic or blastic lesions are seen. IMPRESSION: 1. There is no acute posttraumatic intrathoracic abnormality. 2. Emphysema. 3. There is no evidence of solid organ injury in the abdomen or pelvis. 4. There is airspace consolidation with fibrosis, architectural distortion, and volume loss throughout the left lung. This has significantly progressed from 12/28/2023 and likely represents treatment related change. A superimposed pneumonia is not excluded and clinical correlation will be required. Residual tumor cannot be excluded. 5. The mass at the left lung base seen previously appears decreased in size and confluence from previous. 6. There is trace pleural fluid on the left. No pneumothorax is seen. 7. Hepatosplenomegaly. 8. Right-sided nephrolithiasis. 9. The esophagus is mildly dilated and filled with debris to the level of the thoracic inlet. Note that this may place the patient at risk for aspiration. 10. There is unchanged aneurysmal dilatation of the abdominal aorta which measures up to 3.7 cm in diameter. 11. Additional findings as above. ACT 112: Negative or not required by law. Electronically signed by: Onesimo Silvestre M.D. 04/01/2024 8:[address] 04/01/24 18:27 CT SCAN OF THE CERVICAL SPINE CLINICAL HISTORY: Trauma. COMPARISON STUDY: CT of the cervical spine dated 07/22/2023. TECHNIQUE: CT scan of the cervical spine is performed from the skull base to the upper thoracic spine. Images are reviewed in the axial, sagittal, and coronal planes. IV contrast was not administered for this examination. A dose lowering technique was utilized adhering to the principles of ALARA. FINDINGS: Skeletal structures: The skeletal structures are osteopenic. There is no evidence of fracture or subluxation involving the cervical spine. Vertebral body height and alignment are maintained. There is straightening of the cervical lordosis with mild reversal centered at C5. Anterior osteophytes are seen throughout. The odontoid process and lateral masses are intact. The atlantoaxial articulation is preserved noting productive degenerative change. The spinous processes appear intact. There is mild multilevel facet arthropathy. Intervertebral discs: There is moderate to severe disc space narrowing at C5-C6 and C6-C7 with associated endplate sclerosis. Moderate narrowing is seen at C3- C4 and C4-C5. Central canal: Posterior disc osteophyte complexes at C3-C4, C5-C6, and C6-C7 may contribute to mild acquired compromise of the central canal. Soft tissues: The prevertebral and paraspinous soft tissues are within normal limits. There is atherosclerotic calcification of the carotid bulbs. A PICC line is seen at the right thoracic inlet. The upper esophagus is filled with debris. Calvarium: The visualized calvarium at the skull base appears intact. Brain parenchyma: Partially visualized brain parenchyma at the skull base is within normal limits. Sinuses and mastoids: Mucosal thickening and secretions are seen in the right sphenoid sinus. The mastoid air cells are well pneumatized. Lung apices: Emphysematous change is noted. Apical lung parenchyma is otherwise clear as visualized. IMPRESSION: 1. There is no evidence of fracture or subluxation involving the cervical spine. 2. Osteopenia and spondylotic change as above. 3. Emphysema. 4. The upper esophagus is filled with debris. Note that this may place the patient at risk for aspiration. ACT 112: Negative or not required by law. Electronically signed by: Onesimo Silvestre M.D. 04/01/2024 7:[address] 04/01/24 18:27 CT SCAN OF THE CHEST, ABDOMEN, AND PELVIS WITH IV CONTRAST CLINICAL HISTORY: Trauma. Fall. COMPARISON STUDY: Chest CT dated 12/28/2023. Abdominal CT dated 11/04/2023. PET/CT dated 09/09/2023. TECHNIQUE: Following the IV administration of 90 of Optiray 320, CT scan of the chest, abdomen, and pelvis was performed from the thoracic inlet to the proximal femora. Images are reviewed in the axial, sagittal, and coronal planes. IV contrast was administered without complication. A dose lowering technique was utilized adhering to the principles of ALARA. FINDINGS: CHEST: Thyroid: Imaged portions of the thyroid gland are normal in size and attenuation. Thoracic aorta: There is atherosclerotic calcification of the thoracic aorta, which is normal in caliber and demonstrates standard 3-vessel arch anatomy. No dissection is seen. Pulmonary vasculature: The pulmonary trunk is normal in caliber. There are no filling defects identified in the central pulmonary vessels to indicate pulmonary embolus. Note that this examination was not protocoled for evaluation of the pulmonary arteries. Heart: A right-sided PICC line is in place. The heart is normal in size and without pericardial effusion. The coronary arteries are densely calcified. Lungs and pleural spaces: Emphysematous change is noted. There is airspace consolidation/fibrosis seen throughout the left lung with architecture distortion and significant volume loss. This has significantly progressed from 12/27/2021. The left lower lobe mass lesion seen previously has decreased in size from previous. A residual masslike opacity at this site measures up to 5.2 cm seen on image #165. The irregular left apical nodule seen previously is not well-visualized. There are scarlike opacities in the anterior left upper lobe. There is compensatory hyperinflation of the right lung. Scarring/atelectasis is seen at the right lung base. The right lung is otherwise clear. No pneumothorax is seen. There is trace pleural fluid on the left. The trachea and central airways are clear. Mediastinum: There is no mediastinal hematoma or lymphadenopathy. Esophagus: The esophagus is widely dilated and filled with debris to the level of the thoracic inlet. Christy: The left hilum is obscured. No right hilar adenopathy is seen. Axillae: There is no axillary lymphadenopathy. Bony thorax: The skeletal structures are osteopenic. Mild degenerative change is noted in the thoracic spine. No lytic or blastic lesions are identified. ABDOMEN AND PELVIS: Liver: The contrast-enhanced liver is enlarged, measuring 21.3 cm in length. The liver is otherwise normal in contour and attenuation. There is mild intrahepatic biliary ductal dilatation. The hepatic veins and portal veins are patent. A clip or metallic foreign body is seen in the right hepatic lobe on image #133. This is unchanged. A 15 mm ovoid hypodense nodule along the inferior aspect of the liver on image #154 is unchanged and may represent a dropped gallstone. Gallbladder: Surgically absent noting clips in the gallbladder fossa. Spleen: The spleen is enlarged measuring 15.0 cm in length. Pancreas: Unremarkable. Adrenal glands: Unremarkable. Kidneys: There is asymmetric cortical atrophy of the left kidney as compared to the right. No hydronephrosis is seen. There is heterogeneously diminished enhancement of the left kidney as compared to the right. A 2 cm cyst is seen in the left upper pole. There is a punctate nonobstructing right renal calculus. Abdominal vasculature: There is advanced atherosclerotic calcification and ectasia of the abdominal aorta. There is nonaneurysmal dilatation of the infrarenal abdominal aorta which measures up to 3.7 cm in maximum diameter. Bowel: There is no bowel obstruction. Yyld-gb-xxmtmely fecal retention is seen throughout the colon. The appendix is well-visualized and normal. Peritoneum: There is no intraperitoneal free air or abdominal ascites. Lymphadenopathy: None. Pelvic viscera: The bladder, uterus, and adnexa are normal as visualized. Skeletal structures: The skeletal structures are osteopenic. The lumbosacral spine, bony pelvis, and proximal femora appear intact. There is ywna-pt-ovyixzpq lumbosacral spondylosis. A hemangioma is seen in the body of L3. No lytic or blastic lesions are seen. IMPRESSION: 1. There is no acute posttraumatic intrathoracic abnormality. 2. Emphysema. 3. There is no evidence of solid organ injury in the abdomen or pelvis. 4. There is airspace consolidation with fibrosis, architectural distortion, and volume loss throughout the left lung. This has significantly progressed from 12/28/2023 and likely represents treatment related change. A superimposed pneumonia is not excluded and clinical correlation will be required. Residual tumor cannot be excluded. 5. The mass at the left lung base seen previously appears decreased in size and confluence from previous. 6. There is trace pleural fluid on the left. No pneumothorax is seen. 7. Hepatosplenomegaly. 8. Right-sided nephrolithiasis. 9. The esophagus is mildly dilated and filled with debris to the level of the thoracic inlet. Note that this may place the patient at risk for aspiration. 10. There is unchanged aneurysmal dilatation of the abdominal aorta which measures up to 3.7 cm in diameter. 11. Additional findings as above. ACT 112: Negative or not required by law. Electronically signed by: Onesimo Silvestre M.D. 04/01/2024 8:[address] 04/01/24 18:27 CT SCAN OF THE BRAIN WITHOUT IV CONTRAST CLINICAL HISTORY: Trauma. Fall. COMPARISON STUDY: CT of the brain dated 11/04/2023. TECHNIQUE: Unenhanced axial CT scan of the brain is performed from the vertex to the skull base. A dose lowering technique was utilized adhering to the principles of ALARA. CT DOSE: 3405.48 mGy.cm FINDINGS: Brain parenchyma: There is minimal microangiopathic change. There is no hemorrhage, mass effect, or evidence of acute territorial ischemia by CT criteria. Rojas-white matter differentiation is preserved. No extra-axial fluid collection is seen. Ventricles, sulci, cisterns: Normal in configuration. Intracranial vasculature: There is atherosclerotic calcification of the cavernous carotid arteries. Calvarium: Unremarkable. Sinuses and mastoids: Mucosal thickening and secretions are seen in the right sphenoid sinus. The remaining visualized paranasal sinuses are clear. The mastoid air cells are well pneumatized. Orbits: The bony orbits are grossly intact. IMPRESSION: No acute intracranial abnormality. ACT 112: Negative or not required by law. Electronically signed by: Onesimo Silvestre M.D. 04/01/2024 7:39 PM Discharge Plan Visit Data Chief Complaint: Fall ED Provider: Grace Barros ED Midlevel Provider: Morena Munoz Discharge Problem: Unwitnessed fall, Aspiration pneumonia, Elevated troponin, Cancer related pain Patient Disposition: Admitted As Inpatient Discharge Instructions Interventions: ED Discharge Assessment Last Done: 04/01/24 21:58
[2024-04-01 18:49] LABS: Prothrombin Time 10.8 Seconds (9.0-12.0)
[2024-04-01 18:54] LABS: Albumin Globulin Ratio 1.2 (0.9-2); Albumin Level 3.8 gm/dl (3.4-5.0); Bilirubin,Total 0.6 mg/dl (0.2-1.0); Calcium 9.7 mg/dl (8.6-10.3); Creatinine Clr Calc Pharmacy 86.1 ml/min; Est GFR (African American) 96.9 ml/min; Est GFR (Non-African American) 83.6 ml/min; Globulin 3.2 gm/dl (2.5-4.0); Potassium 4.2 mmol/L (3.5-5.1)
[2024-04-01 19:03] LABS: Troponin I High Sensitivity 667.3 pg/ml (0-14)
[2024-04-01 19:03] LABS: iSTAT Creatinine 0.8 mg/dl (0.6-1.3); iSTAT Hemoglobin 11.9 g/dl (12.0-16.0); iSTAT Ionized Calcium 1.18 mmol/l (1.12-1.32); iSTAT Potassium 4.1 mmol/L (3.3-5.0)
[2024-04-01] MEDS: OPTIRAY 320 100ml IV ONE (19:28)
--- NOTE | 2024-04-01 19:37 | CT Scan Report ---
CT SCAN OF THE CERVICAL SPINE CLINICAL HISTORY: Trauma. COMPARISON STUDY: CT of the cervical spine dated 07/22/2023. TECHNIQUE: CT scan of the cervical spine is performed from the skull base to the upper thoracic spine . Images are reviewed in the axial, sagittal, and coronal planes. IV contrast was not administered fo r this examination. A dose lowering technique was utilized adhering to the principles of ALARA. FINDINGS: Skeletal structures: The skeletal structures are osteopenic. There is no evidence of fracture or subl uxation involving the cervical spine. Vertebral body height and alignment are maintained. There is s traightening of the cervical lordosis with mild reversal centered at C5. Anterior osteophytes are see n throughout. The odontoid process and lateral masses are intact. The atlantoaxial articulation is pr eserved noting productive degenerative change. The spinous processes appear intact. There is mild mul tilevel facet arthropathy. Intervertebral discs: There is moderate to severe disc space narrowing at C5-C6 and C6-C7 with associ ated endplate sclerosis. Moderate narrowing is seen at C3-C4 and C4-C5. Central canal: Posterior disc osteophyte complexes at C3-C4, C5-C6, and C6-C7 may contribute to mild acquired compromise of the central canal. Soft tissues: The prevertebral and paraspinous soft tissues are within normal limits. There is athero sclerotic calcification of the carotid bulbs. A PICC line is seen at the right thoracic inlet. The up per esophagus is filled with debris. Calvarium: The visualized calvarium at the skull base appears intact. Brain parenchyma: Partially visualized brain parenchyma at the skull base is within normal limits. Sinuses and mastoids: Mucosal thickening and secretions are seen in the right sphenoid sinus. The mas toid air cells are well pneumatized. Lung apices: Emphysematous change is noted. Apical lung parenchyma is otherwise clear as visualized. IMPRESSION: 1. There is no evidence of fracture or subluxation involving the cervical spine. 2. Osteopenia and spondylotic change as above. 3. Emphysema. 4. The upper esophagus is filled with debris. Note that this may place the patient at risk for aspira tion. ACT 112: Negative or not required by law. Electronically signed by: Onesimo Silvestre M.D. 04/01/2024 7:35 PM
--- NOTE | 2024-04-01 19:41 | CT Scan Report ---
CT SCAN OF THE BRAIN WITHOUT IV CONTRAST CLINICAL HISTORY: Trauma. Fall. COMPARISON STUDY: CT of the brain dated 11/04/2023. TECHNIQUE: Unenhanced axial CT scan of the brain is performed from the vertex to the skull base. A d ose lowering technique was utilized adhering to the principles of ALARA. CT DOSE: 3405.48 mGy.cm FINDINGS: Brain parenchyma: There is minimal microangiopathic change. There is no hemorrhage, mass effect, or e vidence of acute territorial ischemia by CT criteria. Rjoas-white matter differentiation is preserved. No extra-axial fluid collection is seen. Ventricles, sulci, cisterns: Normal in configuration. Intracranial vasculature: There is atherosclerotic calcification of the cavernous carotid arteries. Calvarium: Unremarkable. Sinuses and mastoids: Mucosal thickening and secretions are seen in the right sphenoid sinus. The rem aining visualized paranasal sinuses are clear. The mastoid air cells are well pneumatized. Orbits: The bony orbits are grossly intact. IMPRESSION: No acute intracranial abnormality. ACT 112: Negative or not required by law. Electronically signed by: Onesimo Silvestre M.D. 04/01/2024 7:39 PM
[2024-04-01] MEDS: oxyCODONE HCL 20 MG TABCR (OxyCONTIN) PO STA (20:01)
[2024-04-01] MEDS: oxyCODONE HCL 10 MG TABCR (OxyCONTIN) PO STA (20:01)
--- NOTE | 2024-04-01 20:04 | CT Scan Report ---
CT SCAN OF THE CHEST, ABDOMEN, AND PELVIS WITH IV CONTRAST CLINICAL HISTORY: Trauma. Fall. COMPARISON STUDY: Chest CT dated 12/28/2023. Abdominal CT dated 11/04/2023. PET/CT dated 09/09/2023. TECHNIQUE: Following the IV administration of 90 of Optiray 320, CT scan of the chest, abdomen, and p samir was performed from the thoracic inlet to the proximal femora. Images are reviewed in the axial, sagittal, and coronal planes. IV contrast was administered without complication. A dose lowering te chnique was utilized adhering to the principles of ALARA. FINDINGS: CHEST: Thyroid: Imaged portions of the thyroid gland are normal in size and attenuation. Thoracic aorta: There is atherosclerotic calcification of the thoracic aorta, which is normal in [place] car[place] and demonstrates standard 3-vessel arch anatomy. No dissection is seen. Pulmonary vasculature: The pulmonary trunk is normal in caliber. There are no filling defects identif ied in the central pulmonary vessels to indicate pulmonary embolus. Note that this examination was no t protocoled for evaluation of the pulmonary arteries. Heart: A right-sided PICC line is in place. The heart is normal in size and without pericardial effus ion. The coronary arteries are densely calcified. Lungs and pleural spaces: Emphysematous change is noted. There is airspace consolidation/fibrosis see n throughout the left lung with architecture distortion and significant volume loss. This has signifi cantly progressed from 12/27/2021. The left lower lobe mass lesion seen previously has decreased in si ze from previous. A residual masslike opacity at this site measures up to 5.2 cm seen on image #165. The irregular left apical nodule seen previously is not well-visualized. There are scarlike opacities in the anterior left upper lobe. There is compensatory hyperinflation of the right lung. Scarring/at electasis is seen at the right lung base. The right lung is otherwise clear. No pneumothorax is seen. There is trace pleural fluid on the left. The trachea and central airways are clear. Mediastinum: There is no mediastinal hematoma or lymphadenopathy. Esophagus: The esophagus is widely dilated and filled with debris to the level of the thoracic inlet. Christy: The left hilum is obscured. No right hilar adenopathy is seen. Axillae: There is no axillary lymphadenopathy. Bony thorax: The skeletal structures are osteopenic. Mild degenerative change is noted in the thoraci c spine. No lytic or blastic lesions are identified. ABDOMEN AND PELVIS: Liver: The contrast-enhanced liver is enlarged, measuring 21.3 cm in length. The liver is otherwise n ormal in contour and attenuation. There is mild intrahepatic biliary ductal dilatation. The hepatic v eins and portal veins are patent. A clip or metallic foreign body is seen in the right hepatic lobe o n image #133. This is unchanged. A 15 mm ovoid hypodense nodule along the inferior aspect of the live r on image #154 is unchanged and may represent a dropped gallstone. Gallbladder: Surgically absent noting clips in the gallbladder fossa. Spleen: The spleen is enlarged measuring 15.0 cm in length. Pancreas: Unremarkable. Adrenal glands: Unremarkable. Kidneys: There is asymmetric cortical atrophy of the left kidney as compared to the right. No hydrone phrosis is seen. There is heterogeneously diminished enhancement of the left kidney as compared to th e right. A 2 cm cyst is seen in the left upper pole. There is a punctate nonobstructing right renal c alculus. Abdominal vasculature: There is advanced atherosclerotic calcification and ectasia of the abdominal a fam. There is nonaneurysmal dilatation of the infrarenal abdominal aorta which measures up to 3.7 cm in maximum diameter. Bowel: There is no bowel obstruction. Hbuh-hm-nymldfqm fecal retention is seen throughout the colon. The appendix is well-visualized and normal. Peritoneum: There is no intraperitoneal free air or abdominal ascites. Lymphadenopathy: None. Pelvic viscera: The bladder, uterus, and adnexa are normal as visualized. Skeletal structures: The skeletal structures are osteopenic. The lumbosacral spine, bony pelvis, and proximal femora appear intact. There is rlka-zm-tscunieu lumbosacral spondylosis. A hemangioma is see n in the body of L3. No lytic or blastic lesions are seen. IMPRESSION: 1. There is no acute posttraumatic intrathoracic abnormality. 2. Emphysema. 3. There is no evidence of solid organ injury in the abdomen or pelvis. 4. There is airspace consolidation with fibrosis, architectural distortion, and volume loss throughou t the left lung. This has significantly progressed from 12/28/2023 and likely represents treatment rel ated change. A superimposed pneumonia is not excluded and clinical correlation will be required. Resi dual tumor cannot be excluded. 5. The mass at the left lung base seen previously appears decreased in size and confluence from previ ous. 6. There is trace pleural fluid on the left. No pneumothorax is seen. 7. Hepatosplenomegaly. 8. Right-sided nephrolithiasis. 9. The esophagus is mildly dilated and filled with debris to the level of the thoracic inlet. Note th at this may place the patient at risk for aspiration. 10. There is unchanged aneurysmal dilatation of the abdominal aorta which measures up to 3.7 cm in [facility]. 11. Additional findings as above. ACT 112: Negative or not required by law. Electronically signed by: Onesimo Silvestre M.D. 04/01/2024 8:02 PM
[2024-04-01 20:11] LABS: Appearance Urine Clear (Clear); Bacteria Urine Automated None Seen (None Seen); Bilirubin Urine Negative (Negative); Blood Urine Negative (Negative); Color Urine Dark Yellow; Epithelial Cell Urine Auto 0-2 /hpf (0-2); Glucose Urine UA Negative (Negative); Ketones Urine Negative (Negative); Leukocyte Esterase Urine Trace (Negative); Nitrite Urine Negative (Negative); Protein Urine Negative (Negative); Specific Gravity Urine 1.044 (1.000-1.030); Urobilinogen Urine Negative (Negative); WBC Urine Automated 0-5 /hpf (0-5)
--- NOTE | 2024-04-01 20:22 | Emergency Department Note ---
ED Visit Note I was consulted by the Advanced Practice Provider. I personally made/approved the management plan and take responsibility for the patient management. I performed a substantive portion of the visit. This includes the aspects of: -History/Physical -MDM .
--- NOTE | 2024-04-01 20:33 | History & Physical Report ---
Date of Service April 01, 2024 Assessment & Plan (1) Unwitnessed fall: Plan: Admit to med telemetry on pulse oximetry Currently stable nontoxic-appearing Presented to the ED via EMS due to unwitnessed fall around 3 AM this morning Patient was found on the floor of her bathroom by her approximately 9 AM this morning Patient does not remember losing consciousness Has remained stable in the ED, nonfocal neurologic exam, no acute changes on CT of the head and brain without contrast Unsure of the pathology of her fall at this time, patient does have risk factors with her history of metastatic lung cancer to the brain No signs of arrhythmia ECG Cannot rule out polypharmacy as possible otology Continue to monitor on telemetry for now, follow-up precautions have been ordered, Will obtain TTE tomorrow, if clinical concern increases could obtain MRI of the brain with without contrast PT/OT consults ordered Home Eliquis for DVT prophylaxis Heart healthy/DM type II diet with aspiration precautions and easy to chew texture AM CBC, CMP, mag, PT/INR (2) Elevated troponin: Plan: Initial high-sensitivity troponin elevated at 667 --> 707 on 2-hour repeat No current chest pain, no acute ST segment or T wave changes on EKG Likely due to demand from patient's known coronary artery disease and significant stress with her fall and being on the ground for multiple hours today Continue to monitor on telemetry Continue to monitor high-sensitivity troponin every 6 hours overnight Follow TTE tomorrow (3) Aspiration pneumonia: Plan: CT of the chest notes possible aspiration pneumonia with some debris noted in the esophagus After speaking with the patient she may have been eating prior to getting her CT scan which may explain the debris in the esophagus For now we will start Unasyn and keep the patient on aspiration precautions with easy to chew diet Speech therapy consult placed (4) Cancer related pain: Plan: Patient recently had her pain management increased with oxycodone ER to 40 mg twice daily from 30 mg twice daily Also on Percocet 10/325 1 tab every 4 hours as needed, Lyrica 150 mg 3 times daily Difficult situation as she has legitimate reasons for pain but may be building tolerance Will continue on current pain regimen for now (5) Small cell carcinoma of lung: Plan: [facility]s [facility] and radiation oncology Continue follow-up with both on discharge (6) Paroxysmal atrial fibrillation: Plan: Currently in normal sinus rhythm Continue metoprolol and Eliquis (7) COPD (chronic obstructive pulmonary disease): Plan: Currently stable on room air but with significant expiratory wheezing Continue to stress importance of smoking cessation Will give DuoNeb now and then continue every 6 hours as needed Incentive spirometry, flutter therapy, as needed O2 to keep SpO2 between 89- 92% Continue home budesonide and formoterol nebs (8) Diabetes mellitus, type 2: Plan: Monitor BSG ACHS, goal is [id number] Hold metformin for now Start CF of 5 CR 15 ACHS for now Plan Patient was discussed with Dr. 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 Per the ED staff the patient reportedly fell while walking in the bathroom around 3 AM this morning. The last thing she remembers is waking on the floor and her found her around 9 AM this morning. It took her multiple hours to get get up due to abdominal pain. When her home health nurse came this afternoon and ordered would have been EMS was called. She remained stable in the ED. Labs were significant for a corrected sodium of 131, chloride of 94, initial high-sensitivity troponin of 667, UA consistent with dehydration negative alcohol level, with urine toxicology screen in process. CT of the head and brain without contrast was read as negative for acute findings. CT of the cervical spine was negative for acute trauma but noted that the upper esophagus is filled with debris making the patient high risk for aspiration. CT of the chest, abdomen, and pelvis with IV contrast was read as negative for posttraumatic intrathoracic abnormality. Emphysema. No evidence of solid organ injury in the abdomen or pelvis. There is airspace consolidation with fibrosis, architectural distortion, and volume loss throughout the left lung. This has significantly progressed from 12/28/2023 and likely represents treatment related change. Superimposed pneumonia is not excluded medical correlation required. Residual tumor cannot be excluded. The mass at the left lung base seen previously appears decreased in size and complements from previous. There is trace pleural fluid on the left chest. No pneumothorax is seen. Hepatosplenomegaly. Right-sided nephrolithiasis. The esophagus is mildly dilated and filled with debris to the level of the thoracic inlet. Note this may place the patient have her high risk for aspiration. There is unchanged aneurysmal dilation of the abdominal aorta which measures up to 3.7 cm in diameter. Prior to admission the patient was given 1 L normal saline, 4 mg IV morphine, 4 mg IV Zofran. 10 mg p.o. oxycodone, and additional 20 mg p.o. oxycodone. Patient was sitting in bed in no acute distress at the time of exam. She explains that she must of fallen when she walked to the bathroom around 3 AM this morning. Does not remember the events surrounding this event. Confirms the rest of the above history. After receiving her chronic pain meds in the ED her pain is significantly improved. Working on continue to reduce the amount she is smoking daily but still smoking at least a half a pack a day. States that she has not been sleeping well and wants to be started on his "sleeping pill". I explained that this would not be done inpatient as this will be an outpatient issue and explained that this would be very high risk given the manage sedating medication she is already on. Denies recent fever, chills, chest pain, current abdominal pain, nausea/vomiting, dysuria/hematuria, melena/diarrhea, states that left lower extremity is normally more swollen than her right. Wishes to be full code and for her to make medical decisions for her she not make them herself. Please refer to Dr. Naranjo's attestation for any changes to the treatment plan Allergies Allergy/AdvReac Type Severity Reaction Status Date / Time latex Allergy Intermediate skin Verified 03/31/24 14:52 itching Influenza Virus Vaccines AdvReac Severe developed Verified 03/31/24 14:52 blood clots vaccine adjuvant system, AdvReac Severe blood clots Verified 03/31/24 14:52 [id number] liposomal [From Shingrix (PF)] varicella-zoster virus AdvReac Severe blood clots Verified 03/31/24 14:52 glycoprotein E, recombinant [From Shingrix (PF)] Home Medications Medication Instructions Recorded Confirmed Type levothyroxine 50 mcg tablet 50 mcg PO QAM 01/09/20 04/01/24 History (Synthroid) nitroglycerin 0.4 mg sublingual 0.4 mg sublingual Q5M PRN chest 01/14/23 04/01/24 Rx tablet pain #30 tabs levocetirizine 5 mg tablet (Xyzal) 5 mg PO DAILY PRN allergies 05/26/23 04/01/24 History Wheeled Walker #1 ea 06/16/23 03/31/24 Rx atorvastatin 40 mg tablet 40 mg PO HS #90 tabs 07/23/23 04/01/24 Rx nicotine 1 patch transdermal DAILY 09/17/23 04/01/24 History 21mg/24hr-14mg/24hr-7mg/24hr daily transderm patches,sequentl blood-glucose meter (OneTouch #1 ea 10/28/23 03/31/24 Rx Ultra2 Meter) lancets 33 gauge (OneTouch Dellacey #100 ea 10/28/23 03/31/24 Rx Plus Lancet) ondansetron HCl 4 mg tablet 4 mg PO QID PRN nausea and 10/28/23 04/01/24 Rx vomiting #120 tabs Hospital Bed Homecare #1 ea 11/04/23 03/31/24 Rx olanzapine 2.5 mg tablet 2.5 mg PO UD PRN n/v 11/04/23 04/01/24 History zolpidem 5 mg tablet 5 mg PO UD PRN Sleep 11/04/23 04/01/24 History WHEEL MOBILITY SCOOTER #1 ea 11/08/23 03/31/24 Rx Wheelchair (Manual) #1 ea 11/08/23 03/31/24 Rx transport chair #1 ea 11/10/23 03/31/24 Rx Magic Mouthwash 300 mL mouthwash 10 ml mucous membrane ACHS PRN 11/22/23 04/01/24 Rx dysphagia #300 mL pantoprazole 40 mg tablet,delayed 40 mg PO QAM #90 tabs 11/22/23 04/01/24 Rx release isosorbide mononitrate 30 mg 30 mg PO QAM #30 tabs 12/03/23 04/01/24 Rx tablet,extended release 24 hr blood sugar diagnostic (OneTouch #100 ea 12/27/23 03/31/24 Rx Ultra Test strips) prochlorperazine maleate 10 mg 10 mg PO DIRECTED PRN 12/28/23 04/01/24 History tablet NAUSEA/VOMITING metoprolol succinate 50 mg 50 mg PO DAILY #30 tabs 12/30/23 04/01/24 Rx tablet,extended release 24 hr ranolazine 500 mg tablet,extended 500 mg PO BID #60 tabs 12/30/23 04/01/24 Rx release,12 hr lorazepam 1 mg tablet 1 mg PO TID PRN anxiety, cancer 02/08/24 04/01/24 Rx #90 tabs albuterol sulfate 90 mcg/actuation 2 puff inhalation QID PRN 02/11/24 04/01/24 Rx aerosol inhaler shortness of breath or wheezing #6.7 grams promethazine 6.25 mg-codeine 10 5 ml PO Q8H PRN cough #473 mL 02/11/24 04/01/24 Rx mg/5 mL syrup umeclidinium 62.5 mcg/actuation 1 inh inhalation DAILY #30 ea 02/11/24 04/01/24 Rx blister powder for inhalation (Incruse Ellipta) apixaban 5 mg tablet (Eliquis) 5 mg PO BID #60 tabs 02/14/24 04/01/24 Rx budesonide 0.5 mg/2 mL suspension 0.5 mg (2 mL) NEB BID #60 doses 02/24/24 04/01/24 Rx for nebulization formoterol fumarate 20 mcg/2 mL 20 mcg (2 mL) inhalation BIDR #60 02/28/24 04/01/24 Rx solution for nebulization doses (Perforomist) metformin 500 mg tablet 500 mg PO BID 03/01/24 04/01/24 History pregabalin 150 mg capsule (Lyrica) 150 mg PO TID #90 caps 03/03/24 04/01/24 Rx oxycodone-acetaminophen 10 mg-325 1 tab PO Q4H PRN pain #180 tabs 03/27/24 04/01/24 Rx mg tablet (Percocet) nitrofurantoin 100 mg PO Q12H 7 days #14 caps 03/28/24 04/01/24 Rx monohydrate/macrocrystals 100 mg capsule (Macrobid) Emotional Support Animal #1 ea 03/31/24 03/31/24 Rx oxycodone 40 mg tablet,crush 40 mg PO BID #60 tabs 03/31/24 04/01/24 Rx resistant,extended release 12 hr Past Med/Surg History Problem List (Updated 04/02/24 @ 17:56 by NIC Seymour) Lower extremity pain Unwitnessed fall (Acute) Aspiration pneumonia (Acute) Elevated troponin (Acute) Cancer related pain (Acute) Psychosocial problem Brain metastasis (Chronic) Hemoptysis Encounter for pain management Small cell carcinoma of lung (Acute) Anemia (Acute) Diabetes Unusual change in behavior 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 details Chest pain (Acute) Abscess of upper gum Acute bronchitis Cough Allergic rhinitis Dyspnea on exertion Routine health maintenance Trochanteric bursitis of both hips Stress bladder incontinence, female Smoker Insomnia (Chronic) HTN (hypertension), benign (Chronic) Left hip pain (Acute) Anxiety (Acute) Asthma (Chronic) Lyme disease (Chronic) Fibromyalgia (Chronic) Chronic radicular lumbar pain (Chronic) Hypothyroid (Chronic) COPD (chronic obstructive pulmonary disease) (Chronic) CVD (cardiovascular disease) (Chronic) Medical History Refusal of blood transfusions as patient is Shinto Lung cancer metastatic to brain Paroxysmal atrial fibrillation Aortic stenosis mild to moderate on 05/2023 echo (DAVIS 1.0 cm2, mean PG 15 mmHg) Coronary artery disease s/p 5 stents, last in 2018 Chronic respiratory failure Obesity Takotsubo cardiomyopathy history of Takotsubo cardiomyopathy per [place] [facility] Aneurysmal dilatation AAA, 3.4 cm History of COVID-19 07/2023 Lumbar disc herniation Peripheral neuropathy bilateral legs Diabetes mellitus, type 2 Hx of deep venous thrombosis years ago Anxiety Onychomycosis Hypotension still occurring occasionally Hypertensive urgency History of TIA (transient ischemic attack) 2018, no deficits History of myocardial infarction x 5 Surgical History History of cardiac cath History of cholecystectomy History of section History of coronary artery stent placement Family History Mother Myocardial infarction Daughter Myocardial infarction Denies family history of Ovarian cancer Prostate cancer Breast cancer Colorectal cancer Social History Smoking Status: Current every day smoker Tobacco Type: Cigarettes Age Started Using Tobacco: 15; packs per day: 1; Cigarettes Per Day: half a pack; Second Hand Exposure: No; Do You Dip or Chew Tobacco: No; Tobacco Cessation Education Requested by Patient: No Hx Alcohol Use: Yes Alcohol type: beer and wine Hx Substance Use: Yes Preferred Language: [place] Communication Ability: Effective Visual Impairment: No Limitations Stroke Coordinator Required: No Beliefs That Will Affect Care: Adventist Adventist Beliefs: Mormon marital status: Current Living Situation: Spouse Current Living Situation Comment: and son current occupational status: disabled How many Children do You have: 6 Other Information That Helps Us Care for You: No Feels Safe at Home: Yes Safety Concerns: Feels Safe At This Time Childhood Exposure to Second-Hand Smoke: Yes Diet: diabetic and regular caffeine: Yes (Coffee) Dental Care, Regularly: No Physical Activity Frequency: Daily Physical Activity Frequency Comment: Daily housework/activites Seatbelt Use: always Sunscreen Use: No Assistive Devices: Walker Physical Exam Physical Exam: Physical Exam: General: In no acute distress, older than stated age, poor hygiene, chronically ill-appearing but nontoxic HEENT: Normocephalic, atraumatic, no scleral icterus, pupils around round, symmetrical, and reactive to light, dry mucus membranes, trachea midline, no thyromegaly Chest/Pulm: No respiratory distress, symmetrical chest expansion, lung rhonchi noted in the left lower lobe with significant expiratory wheezing in all other lung dorantes Cardiac: Irregular rate and rhythm, 4/6 systolic murmur noted Abdomen: Negative for ascites and bruising, normoactive bowel sounds, soft, non-tender to palpation throughout Musculoskeletal: No acute trauma, able to move bilateral upper and lower extremities without issue, no pain on palpation of the entire/spine Extremities: Radial, dorsalis pedis, and posterior tibial pulses are intact and symmetrical, left lower extremity with erythema and swelling compared to right Skin: Erythema noted lower aspect of the left lower extremity consistent with otherwise no acute changes Neuro: Alert and oriented to person, place, month, year, and president, no focal defects, CN II-XII tested and intact, no tremors noted Psych: No acute distress, calm and cooperative during the exam Results & Data Results & Data Vital Signs (Past 12 Hours) Vital Signs Temp Pulse Pulse Resp BP BP Pulse Ox 04/01/24 19:38 37.2 C 77 15 109/61 96 04/01/24 18:26 92 04/01/24 17:49 86 04/01/24 17:15 84 20 141/95 H 93 O2 Del Method 04/01/24 19:38 Room Air 04/01/24 18:26 Room Air 04/01/24 17:49 04/01/24 17:15 Room Air Laboratory Results Abnormal lab results 04/01/24 04/01/24 04/01/24 Range/Units 17:18 18:50 19:27 POC Hgb 11.9 L (12.0-16.0) g/dl POC Hct 35 L (37-47) % RDW Std Deviation 47.5 H (36.4-46.3) fL RDW Coeff of Chanel 14.7 H (11.5-14.5) % Lymph # (Auto) 0.68 L (1.20-3.40) K/uL [place] # (Auto) 0.65 H (0.11-0.59) K/uL POC Sodium 131 L (135-144) mmol/L Sodium 130 L (136-145) mmol/L POC Chloride 94 L (101-112) mmol/L Chloride 94 L (98-107) mmol/L POC Anion Gap 15.0 L (16-25) mmol/L Glucose 160 H (70-99(Fasting)) mg/dl POC Glucose (70-99) mg/dl POC Glucose (other) 115 H (70-99) mg/dl AST 42 H (13-39) U/L Troponin I High Sens 667.3 H* 707.8 H* (0-14) pg/ml Ur Specific [place] (1.000-1.030) Ur Leukocyte Esterase (Negative) Urine RBC (Auto) (0-2) /hpf U Hyaline Cast (Auto) (0-2) /lpf Urine Opiates Screen (Neg) U Marijuana (THC) Screen (Neg) 04/01/24 04/01/24 Range/Units 19:53 20:57 POC Hgb (12.0-16.0) g/dl POC Hct (37-47) % RDW Std Deviation (36.4-46.3) fL RDW Coeff of Chanel (11.5-14.5) % Lymph # (Auto) (1.20-3.40) K/uL [place] # (Auto) (0.11-0.59) K/uL POC Sodium (135-144) mmol/L Sodium (136-145) mmol/L POC Chloride (101-112) mmol/L Chloride (98-107) mmol/L POC Anion Gap (16-25) mmol/L Glucose (70-99(Fasting)) mg/dl POC Glucose 180 H (70-99) mg/dl POC Glucose (other) (70-99) mg/dl AST (13-39) U/L Troponin I High Sens (0-14) pg/ml Ur Specific [place] 1.044 H (1.000-1.030) Ur Leukocyte Esterase Trace H (Negative) Urine RBC (Auto) 3-5 H (0-2) /hpf U Hyaline Cast (Auto) 3-5 H (0-2) /lpf Urine Opiates Screen Pos H (Neg) U Marijuana (THC) Screen Pos H (Neg) Diagnostic Findings Abdomen/Pelvis CT 04/01/24 18:27 CT SCAN OF THE CHEST, ABDOMEN, AND PELVIS WITH IV CONTRAST CLINICAL HISTORY: Trauma. Fall. COMPARISON STUDY: Chest CT dated 12/28/2023. Abdominal CT dated 11/04/2023. PET/CT dated 09/09/2023. TECHNIQUE: Following the IV administration of 90 of Optiray 320, CT scan of the chest, abdomen, and pelvis was performed from the thoracic inlet to the proximal femora. Images are reviewed in the axial, sagittal, and coronal planes. IV contrast was administered without complication. A dose lowering technique was utilized adhering to the principles of ALARA. FINDINGS: CHEST: Thyroid: Imaged portions of the thyroid gland are normal in size and attenuation. Thoracic aorta: There is atherosclerotic calcification of the thoracic aorta, which is normal in caliber and demonstrates standard 3-vessel arch anatomy. No dissection is seen. Pulmonary vasculature: The pulmonary trunk is normal in caliber. There are no filling defects identified in the central pulmonary vessels to indicate pulmonary embolus. Note that this examination was not protocoled for evaluation of the pulmonary arteries. Heart: A right-sided PICC line is in place. The heart is normal in size and without pericardial effusion. The coronary arteries are densely calcified. Lungs and pleural spaces: Emphysematous change is noted. There is airspace consolidation/fibrosis seen throughout the left lung with architecture distortion and significant volume loss. This has significantly progressed from 12/27/2021. The left lower lobe mass lesion seen previously has decreased in size from previous. A residual masslike opacity at this site measures up to 5.2 cm seen on image #165. The irregular left apical nodule seen previously is not well-visualized. There are scarlike opacities in the anterior left upper lobe. There is compensatory hyperinflation of the right lung. Scarring/atelectasis is seen at the right lung base. The right lung is otherwise clear. No pneumothorax is seen. There is trace pleural fluid on the left. The trachea and central airways are clear. Mediastinum: There is no mediastinal hematoma or lymphadenopathy. Esophagus: The esophagus is widely dilated and filled with debris to the level of the thoracic inlet. Christy: The left hilum is obscured. No right hilar adenopathy is seen. Axillae: There is no axillary lymphadenopathy. Bony thorax: The skeletal structures are osteopenic. Mild degenerative change is noted in the thoracic spine. No lytic or blastic lesions are identified. ABDOMEN AND PELVIS: Liver: The contrast-enhanced liver is enlarged, measuring 21.3 cm in length. The liver is otherwise normal in contour and attenuation. There is mild intrahepatic biliary ductal dilatation. The hepatic veins and portal veins are patent. A clip or metallic foreign body is seen in the right hepatic lobe on image #133. This is unchanged. A 15 mm ovoid hypodense nodule along the inferior aspect of the liver on image #154 is unchanged and may represent a dropped gallstone. Gallbladder: Surgically absent noting clips in the gallbladder fossa. Spleen: The spleen is enlarged measuring 15.0 cm in length. Pancreas: Unremarkable. Adrenal glands: Unremarkable. Kidneys: There is asymmetric cortical atrophy of the left kidney as compared to the right. No hydronephrosis is seen. There is heterogeneously diminished enhancement of the left kidney as compared to the right. A 2 cm cyst is seen in the left upper pole. There is a punctate nonobstructing right renal calculus. Abdominal vasculature: There is advanced atherosclerotic calcification and ectasia of the abdominal aorta. There is nonaneurysmal dilatation of the infrarenal abdominal aorta which measures up to 3.7 cm in maximum diameter. Bowel: There is no bowel obstruction. [id number] fecal retention is seen throughout the colon. The appendix is well-visualized and normal. Peritoneum: There is no intraperitoneal free air or abdominal ascites. Lymphadenopathy: None. Pelvic viscera: The bladder, uterus, and adnexa are normal as visualized. Skeletal structures: The skeletal structures are osteopenic. The lumbosacral spine, bony pelvis, and proximal femora appear intact. There is [id number] lumbosacral spondylosis. A hemangioma is seen in the body of L3. No lytic or blastic lesions are seen. IMPRESSION: 1. There is no acute posttraumatic intrathoracic abnormality. 2. Emphysema. 3. There is no evidence of solid organ injury in the abdomen or pelvis. 4. There is airspace consolidation with fibrosis, architectural distortion, and volume loss throughout the left lung. This has significantly progressed from 12/28/2023 and likely represents treatment related change. A superimposed pneumonia is not excluded and clinical correlation will be required. Residual tumor cannot be excluded. 5. The mass at the left lung base seen previously appears decreased in size and confluence from previous. 6. There is trace pleural fluid on the left. No pneumothorax is seen. 7. Hepatosplenomegaly. 8. Right-sided nephrolithiasis. 9. The esophagus is mildly dilated and filled with debris to the level of the thoracic inlet. Note that this may place the patient at risk for aspiration. 10. There is unchanged aneurysmal dilatation of the abdominal aorta which measures up to 3.7 cm in diameter. 11. Additional findings as above. ACT 112: Negative or not required by law. Electronically signed by: Onesimo Silvestre M.D. 04/01/2024 8:[address] 04/01/24 18:27 CT SCAN OF THE CERVICAL SPINE CLINICAL HISTORY: Trauma. COMPARISON STUDY: CT of the cervical spine dated 07/22/2023. TECHNIQUE: CT scan of the cervical spine is performed from the skull base to the upper thoracic spine. Images are reviewed in the axial, sagittal, and coronal planes. IV contrast was not administered for this examination. A dose lowering technique was utilized adhering to the principles of ALARA. FINDINGS: Skeletal structures: The skeletal structures are osteopenic. There is no evidence of fracture or subluxation involving the cervical spine. Vertebral body height and alignment are maintained. There is straightening of the cervical lordosis with mild reversal centered at C5. Anterior osteophytes are seen t hroughout. The odontoid process and lateral masses are intact. The atlantoaxial articulation is preserved noting productive degenerative change. The spinous processes appear intact. There is mild multilevel facet arthropathy. Intervertebral discs: There is moderate to severe disc space narrowing at C5-C6 and C6-C7 with associated endplate sclerosis. Moderate narrowing is seen at C3- C4 and C4-C5. Central canal: Posterior disc osteophyte complexes at C3-C4, C5-C6, and C6-C7 may contribute to mild acquired compromise of the central canal. Soft tissues: The prevertebral and paraspinous soft tissues are within normal limits. There is atherosclerotic calcification of the carotid bulbs. A PICC line is seen at the right thoracic inlet. The upper esophagus is filled with debris. Calvarium: The visualized calvarium at the skull base appears intact. Brain parenchyma: Partially visualized brain parenchyma at the skull base is within normal limits. Sinuses and mastoids: Mucosal thickening and secretions are seen in the right sphenoid sinus. The mastoid air cells are well pneumatized. Lung apices: Emphysematous change is noted. Apical lung parenchyma is otherwise clear as visualized. IMPRESSION: 1. There is no evidence of fracture or subluxation involving the cervical spine. 2. Osteopenia and spondylotic change as above. 3. Emphysema. 4. The upper esophagus is filled with debris. Note that this may place the patient at risk for aspiration. ACT 112: Negative or not required by law. Electronically signed by: Onesimo Silvestre M.D. 04/01/2024 7:[address] 04/01/24 18:27 CT SCAN OF THE CHEST, ABDOMEN, AND PELVIS WITH IV CONTRAST CLINICAL HISTORY: Trauma. Fall. COMPARISON STUDY: Chest CT dated 12/28/2023. Abdominal CT dated 11/04/2023. PET/CT dated 09/09/2023. TECHNIQUE: Following the IV administration of 90 of Optiray 320, CT scan of the chest, abdomen, and pelvis was performed from the thoracic inlet to the proximal femora. Images are reviewed in the axial, sagittal, and coronal planes. IV contrast was administered without complication. A dose lowering technique was utilized adhering to the principles of ALARA. FINDINGS: CHEST: Thyroid: Imaged portions of the thyroid gland are normal in size and attenuation. Thoracic aorta: There is atherosclerotic calcification of the thoracic aorta, which is normal in caliber and demonstrates standard 3-vessel arch anatomy. No dissection is seen. Pulmonary vasculature: The pulmonary trunk is normal in caliber. There are no filling defects identified in the central pulmonary vessels to indicate pulmonary embolus. Note that this examination was not protocoled for evaluation of the pulmonary arteries. Heart: A right-sided PICC line is in place. The heart is normal in size and without pericardial effusion. The coronary arteries are densely calcified. Lungs and pleural spaces: Emphysematous change is noted. There is airspace consolidation/fibrosis seen throughout the left lung with architecture distortion and significant volume loss. This has significantly progressed from 12/27/2021. The left lower lobe mass lesion seen previously has decreased in size from previous. A residual masslike opacity at this site measures up to 5.2 cm seen on image #165. The irregular left apical nodule seen previously is not well-visualized. There are scarlike opacities in the anterior left upper lobe. There is compensatory hyperinflation of the right lung. Scarring/atelectasis is seen at the right lung base. The right lung is otherwise clear. No pneumothorax is seen. There is trace pleural fluid on the left. The trachea and central airways are clear. Mediastinum: There is no mediastinal hematoma or lymphadenopathy. Esophagus: The esophagus is widely dilated and filled with debris to the level of the thoracic inlet. Christy: The left hilum is obscured. No right hilar adenopathy is seen. Axillae: There is no axillary lymphadenopathy. Bony thorax: The skeletal structures are osteopenic. Mild degenerative change is noted in the thoracic spine. No lytic or blastic lesions are identified. ABDOMEN AND PELVIS: Liver: The contrast-enhanced liver is enlarged, measuring 21.3 cm in length. The liver is otherwise normal in contour and attenuation. There is mild intrahepatic biliary ductal dilatation. The hepatic veins and portal veins are patent. A clip or metallic foreign body is seen in the right hepatic lobe on image #133. This is unchanged. A 15 mm ovoid hypodense nodule along the inferior aspect of the liver on image #154 is unchanged and may represent a dropped gallstone. Gallbladder: Surgically absent noting clips in the gallbladder fossa. Spleen: The spleen is enlarged measuring 15.0 cm in length. Pancreas: Unremarkable. Adrenal glands: Unremarkable. Kidneys: There is asymmetric cortical atrophy of the left kidney as compared to the right. No hydronephrosis is seen. There is heterogeneously diminished enhancement of the left kidney as compared to the right. A 2 cm cyst is seen in the left upper pole. There is a punctate nonobstructing right renal calculus. Abdominal vasculature: There is advanced atherosclerotic calcification and ectasia of the abdominal aorta. There is nonaneurysmal dilatation of the infrarenal abdominal aorta which measures up to 3.7 cm in maximum diameter. Bowel: There is no bowel obstruction. Vibs-kd-alredkbl fecal retention is seen throughout the colon. The appendix is well-visualized and normal. Peritoneum: There is no intraperitoneal free air or abdominal ascites. Lymphadenopathy: None. Pelvic viscera: The bladder, uterus, and adnexa are normal as visualized. Skeletal structures: The skeletal structures are osteopenic. The lumbosacral spine, bony pelvis, and proximal femora appear intact. There is [id number] lumbosacral spondylosis. A hemangioma is seen in the body of L3. No lytic or blastic lesions are seen. IMPRESSION: 1. There is no acute posttraumatic intrathoracic abnormality. 2. Emphysema. 3. There is no evidence of solid organ injury in the abdomen or pelvis. 4. There is airspace consolidation with fibrosis, architectural distortion, and volume loss throughout the left lung. This has significantly progressed from 12/28/2023 and likely represents treatment related change. A superimposed pneumonia is not excluded and clinical correlation will be required. Residual tumor cannot be excluded. 5. The mass at the left lung base seen previously appears decreased in size and confluence from previous. 6. There is trace pleural fluid on the left. No pneumothorax is seen. 7. Hepatosplenomegaly. 8. Right-sided nephrolithiasis. 9. The esophagus is mildly dilated and filled with debris to the level of the thoracic inlet. Note that this may place the patient at risk for aspiration. 10. There is unchanged aneurysmal dilatation of the abdominal aorta which measures up to 3.7 cm in diameter. 11. Additional findings as above. ACT 112: Negative or not required by law. Electronically signed by: Onesimo Silvestre M.D. 04/01/2024 8:[address] 04/01/24 18:27 CT SCAN OF THE BRAIN WITHOUT IV CONTRAST CLINICAL HISTORY: Trauma. Fall. COMPARISON STUDY: CT of the brain dated 11/04/2023. TECHNIQUE: Unenhanced axial CT scan of the brain is performed from the vertex to the skull base. A dose lowering technique was utilized adhering to the principles of ALARA. CT DOSE: 3405.48 mGy.cm FINDINGS: Brain parenchyma: There is minimal microangiopathic change. There is no h emorrhage, mass effect, or evidence of acute territorial ischemia by CT criteria. Rojas-white matter differentiation is preserved. No extra-axial fluid collection is seen. Ventricles, sulci, cisterns: Normal in configuration. Intracranial vasculature: There is atherosclerotic calcification of the cavernous carotid arteries. Calvarium: Unremarkable. Sinuses and mastoids: Mucosal thickening and secretions are seen in the right sphenoid sinus. The remaining visualized paranasal sinuses are clear. The mastoid air cells are well pneumatized. Orbits: The bony orbits are grossly intact. IMPRESSION: No acute intracranial abnormality. ACT 112: Negative or not required by law. Electronically signed by: Onesimo Silvestre M.D. 04/01/2024 7:39 PM Code Status & VTE Plan Code Status Full code VTE Prophylaxis Plan VTE Prophylaxis will be ordered: Yes Supervising Physician Co-Signing Physician Notes Attending addendum: I have physically seen this patient, have supervised the FANI's activities, and agree with the H&P unless as otherwise noted. Assessment and Plan: Status post unwitnessed fall- Patient reportedly fell about 3 AM this morning, and was first seen by her approximately 9 AM this morning. She does not remember the events Workup in the emergency department included CT scan head and brain without contrast which was negative CT chest and abdomen and pelvis was significant for emphysema, left lung base mass that was decreased in size, hepatosplenomegaly, and esophagus filled with fluid, given risk for aspiration The patient will be admitted to telemetry for serial cardiac enzymes, serial EKG's, cardiac rhythm monitoring and a 2-D echocardiogram with Dopplers. Consult PT/OT Elevated troponin/paroxysmal atrial fibrillation- The patient will be admitted to telemetry for serial cardiac enzymes, serial EKG's, cardiac rhythm monitoring and a 2-D echocardiogram with Dopplers. Troponin 667, with follow-up 707 No signs of ischemia on EKG Likely type II supply demand, I would be concerned regarding arrhythmia as a potential cause of falling Continue metoprolol and Eliquis Cardiology consult Aspiration pneumonia/COPD- Esophagus noted to be fluid-filled, and CT chest suggest possible aspiration pneumonia Patient reports that she did actually eat for the CT, so this may actually be a false positive for undigested food DuoNebs every 2 hours as needed Consulting speech therapy Small cell carcinoma of lung- [facility] and [facility] oncology Diabetes mellitus type 2- Hold metformin -Accu-Cheks with NovoLog [facility] PG Care Time/CCT Total # of Minutes Spent Total Time Spent with Patient: Total time spent is greater than 50% in coordination of care (as documented) at patient's floor/unit and/or counseling patient: Coding [place] [address] INT INP/OBS CARE 3/75MIN Patient Type Established Medical Decision Making High Complexity Diagnoses Unwitnessed fall R29.6 Elevated troponin R79.89 Aspiration pneumonia J69.0 Cancer related pain G89.3 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
[2024-04-01 20:41] LABS: Amphetamines+Metham, Urine Neg (Neg); Barbiturates, Urine Neg (Neg); Benzodiazepine, Urine Neg (Neg); Cocaine, Urine Neg (Neg); Fentanyl, Urine Neg (Neg); MDMA (Ecstacy), Urine Neg (Neg); Marijuana, Urine Pos (Neg); Methadone, Urine Neg (Neg); Opiate, Urine Pos (Neg); Phencyclidine, Urine Neg (Neg)
[2024-04-01] MEDS ORDERED: CARBOHYDRATES FOR HYPOGLYCEMIA PO PRN (20:51)
[2024-04-01] MEDS ORDERED: GLUCAGON FOR INJ 1 MG VIAL SQ PRN (20:51)
[2024-04-01] MEDS ORDERED: GLUCOSE 10 TAB/TUBE PO PRN (20:51)
[2024-04-01] MEDS ORDERED: DEXTROSE 50% 50 ML SYRINGE IV PRN (20:51)
[2024-04-01] MEDS ORDERED: GLUCOSE 40% GEL 15 GM TUBE PO PRN (20:51)
[2024-04-01] MEDS: INSULIN ASPART PER UNIT CHARGE SC STA (21:33)
[2024-04-01] MEDS: AMPICILLIN/SULBACTAM SOD 3,000 MG/100 ML BAG IV STA (21:35)
[2024-04-01] MEDS: ALBUT/IPRATROP 3MG/0.5MG NEB 3 ML VIAL NEB STA (21:35)
[2024-04-01] MEDS: RANOLAZINE 500 MG ER TAB PO STA (22:31)
[2024-04-01] MEDS: NITROFURANTOIN MONOHYDRATE 100 MG CAP PO SCH (22:51)
[2024-04-01] MEDS: PREGABALIN 150 MG CAP PO ONE (23:01)
[2024-04-01] MEDS: oxyCODONE HCL 20 MG TABCR (OxyCONTIN) PO SCH (23:01)
[2024-04-02 03:25] LABS: Basophils # (auto) 0.02 K/uL (0.00-0.20); Basophils % (auto) 0.5 %; Eosinophils # (auto) 0.12 K/uL (0.00-0.50); Eosinophils % (auto) 2.9 %; Hematocrit (blood only) 34.5 % (37.0-47.0); Hemoglobin 10.8 g/dl (12.0-16.0); Immature Granulocytes # (auto) 0.04 K/uL (0.01-0.20); Lymphocytes # (auto) 0.66 K/uL (1.20-3.40); Lymphocytes % (auto) 16.1 %; Mean Corpuscular Hemoglobin 28.3 pg (25.0-34.0); Mean Corpuscular Hgb Conc 31.3 g/dL (32.0-36.0); Mean Corpuscular Volume 90.6 fL (80.0-100.0); Mean Platelet Volume 9.8 fL (9.4-12.4); Monocytes # (auto) 0.57 K/uL (0.11-0.59); Monocytes % (auto) 13.9 %; Neutrophils # (auto) 2.69 K/uL (1.40-6.50); Neutrophils % (auto) 65.6 %; Platelet Count 152 K/uL (130-400); RDW Coefficient of Variation 14.9 % (11.5-14.5); RDW Standard Deviation 49.5 fL (36.4-46.3); Red Blood Count 3.81 M/uL (4.20-5.40)
[2024-04-02 03:27] LABS: Albumin Globulin Ratio 1.2 (0.9-2); Albumin Level 3.4 gm/dl (3.4-5.0); BUN Creatinine Ratio 19.5 (10-20); Bilirubin,Total 0.4 mg/dl (0.2-1.0); Calcium 9.4 mg/dl (8.6-10.3); Creatinine Clr Calc Pharmacy 83.5 ml/min; Est GFR (African American) 93.9 ml/min; Globulin 2.8 gm/dl (2.5-4.0); Magnesium 1.9 mg/dl (1.7-2.4); Potassium 4.3 mmol/L (3.5-5.1); Total Protein 6.2 gm/dl (6.0-8.3)
[2024-04-02 03:41] LABS: INR 0.9 (0.9-1.1)
[2024-04-02] MEDS: AMPICILLIN/SULBACTAM SOD 3,000 MG/100 ML BAG IV SCH (04:11)
[2024-04-02] MEDS: LEVOTHYROXINE SODIUM 50 MCG TABLET PO SCH (06:18)
[2024-04-02] MEDS: FORMOTEROL 20 MCG/2 ML VIAL INH SCH (07:05)
[2024-04-02] MEDS: ALBUT/IPRATROP 3MG/0.5MG NEB 3 ML VIAL NEB PRN (07:05)
[2024-04-02] MEDS: BUDESONIDE 0.5 MG/2 ML VIAL (PULMICORT) NEB SCH (07:05)
--- NOTE | 2024-04-02 09:12 | Ultrasound Report ---
LEFT LOWER EXTREMITY VENOUS DOPPLER HISTORY: Left leg erythema and swelling COMPARISON STUDY: None. FINDINGS: There is normal compressibility, flow, and augmentation within the left lower extremity phu p venous system. IMPRESSION: No DVT within the left lower extremity. ACT 112: Negative or not required by law. Electronically signed by: Junior Chan M.D. 04/02/2024 9:11 AM
[2024-04-02] MEDS: PREGABALIN 150 MG CAP PO SCH (09:24)
[2024-04-02] MEDS: ISOSORBIDE MONO EXTENDED REL 30 MG TABCR PO SCH (09:25)
[2024-04-02] MEDS: RANOLAZINE 500 MG ER TAB PO SCH (09:25)
[2024-04-02] MEDS: APIXABAN 5 MG TABLET PO SCH (09:25)
[2024-04-02] MEDS: METOPROLOL SUCC 50MG EXT REL TAB PO SCH (09:26)
[2024-04-02] MEDS: PANTOprazole 40 MG TAB PO SCH (09:26)
[2024-04-02] MEDS: INSULIN ASPART PER UNIT CHARGE SC SCH (09:32)
[2024-04-02] MEDS: ONDANSETRON INJ 2 MG/ML 2 ML VIAL IV STA (13:20)
--- NOTE | 2024-04-02 17:34 | Hospitalist Progress Note ---
Date of Service April 02, 2024 Assessment & Plan (1) Unwitnessed fall: Plan: Currently stable nontoxic-appearing Has remained stable, nonfocal neurologic exam, no acute changes on CT of the head and brain without contrast Unsure of the pathology of her fall at this time, although possibly secondary to polypharmacy/increase in opioid pain medication. No signs of arrhythmia ECG Continue to monitor on telemetry for now TTE - EF 50-55%, moderate concentric left ventricular hypertrophy, mild to moderate aortic stenosis. PT/OT consults ordered Home Eliquis for DVT prophylaxis Heart healthy/DM type II diet with aspiration precautions and easy to chew texture (2) Elevated troponin: Plan: Initial high-sensitivity troponin elevated at 667 --> 707 -->416 - TTE - EF 50-55%, moderate concentric left ventricular hypertrophy, mild to moderate aortic stenosis. No current chest pain, no acute ST segment or T wave changes on EKG Likely due to demand from patient's known coronary artery disease and significant stress with her fall and being on the ground for multiple hours today Continue to monitor on telemetry (3) Aspiration pneumonia: Plan: CT of the chest notes possible aspiration pneumonia with some debris noted in the esophagus After speaking with the patient she may have been eating prior to getting her CT scan which may explain the debris in the esophagus. - Speech therapy eval done today with a beside swallow - recommend aspiration precautions and reflux precautions. Also recommend barium swallow and video study for further evaluation. Unasyn d/c. Low clinical suspicion of aspiration pneumonia - pt has been stable, no acute changes, afebrile. (4) Cancer related pain: Plan: Patient recently had her pain management increased with oxycodone ER to 40 mg twice daily from 30 mg twice daily. Will continue, monitor closely. Also on Percocet 10/325 1 tab every 4 hours as needed. Instructed for patient to limit to 4 tabs/day for the next week to avoid adverse side effects - Lyrica 150 mg 3 times daily (5) Small cell carcinoma of lung: Plan: [facility] and radiation oncology Continue follow-up with both on discharge (6) Paroxysmal atrial fibrillation: Plan: Currently in normal sinus rhythm Continue metoprolol and Eliquis (7) COPD (chronic obstructive pulmonary disease): Plan: Continue to stress importance of smoking cessation Will give DuoNeb every 6 hours as needed Incentive spirometry, flutter therapy, as needed O2 to keep SpO2 between 89- 92% Continue home budesonide and formoterol nebs (8) Diabetes mellitus, type 2: Plan: Monitor BSG ACHS - Per nursing patient is refusing insulin. Only on 500mg metformin daily at home. Last A1c 6.3 in October. BS readings under 200. Continue to monitor. (9) Lower extremity pain: Plan: Doppler negative. Pt reports mild calf swelling. No significant swelling noted on examination. Plan PICC line - noted on exam by IV nurse - catheter was 6-7 cm external, which it was only 1 cm external with placement. Reviewed CT scan with Onesimo Garzon PA-C showing the PICC in the SVC. Onesimo is involved in her cancer care and states that even if the PICC line because midline it is still okay to use for her cancer treatment. IV nurse reports positive blood return. No reason to d/c at this time. Admission and Anticipated Discharge Date Admission Date: April 01, 2024 Supervising Physician Co-Signing Physician Notes I personally examined the patient and verified all franks points of history and exam, discussed case, and agree with decision making with A David LUCERO Feeling better and very much wants to go home. Family present. Updated to the best my ability and to their satisfaction. Answered all questions. Vitals noted, in general she is awake and alert pleasant no distress. HEENT normocephalic atraumatic mucous membranes moist. Breathing unlabored no accesso ry muscle use good effort. Skin without rashes pallor or icterus. Neuro without focal deficits. Unresponsive episodeseems most consistent with accidental overdose. Discussed in depth and at lengthher OxyContin had just been increased, and she was having a bad pain day so she took more than her usual of oxycodoneshe also notes that similar (it seems to have been implied less severe) situations have happened before. Continue to follow into tomorrow to ensure that no other new problems crop up to change the differentialbut it seems most likely that accidental overdose/polypharmacy was the culprit. Moving forward we discussed that her narcotics are unfortunately necessary because of her severe cancer pain, but also a fairly high risk medicationand that it would make sense for her family to help her administer her narcotic pain medications so that she does not accidentally take 1 if she is more sedated than she realizes. Esophageal issuesdysmotility versus stricture are possiblebarium swallow. If dysmotility, swallowing strategies, if stricture, GI consult. If neither, it is also possible that this was all situational related to her accidental overdose/narcotics slowing GI motility/etc. elevated troponindemand ischemia DVT prophylaxisanticoagulated on Eliquis otherwise as above Subjective Sanjuanita is a 64 y/o female who presented to the hospital s/p fall. Her son found her on the floor and she was there for a few hours. When he checked on her again, she was confused and hadn't improve so they brought her in to the hospital. They report that a similar situation occurred a few weeks ago where she was disoriented for a few hours, but she was in her bed the entire time and did not fall. She is sitting comfortably in her bed. She has chronic left back pain, some mild R frontal palpable head pain, but otherwise denies any new or worsening pains. No evidence of bruising or contusion noted on her head. She is currently following [facility] [place] for small cell lung cancer with metastasis to the brain. She recently had an increase of her Oxycontin. She takes Percocet for pain between 4-6 times/day. On Wednesday, she increased her dose of Oxycontin per prescriber order and also took 6 percocet pills throughout the day. When speaking with her, she feels this may have contributed to her fall. She has complaints of R frontal palpable headache to touch. Denies double vision, blurred vision, but reports recent loss of peripheral vision in both eyes - states this started prior to her fall and after she started whole brain radiation. Review of Systems Constitutional: no fever, no chills, no sweats and no body aches Eyes: + loss of peripheral vision (Bilaterally x a few weeks); no diplopia, no discharge, no eye pain and no spots in vision Respiratory: no cough, no chest congestion, no dyspnea and no dyspnea on exertion Cardiovascular: no chest pain and no dyspnea Gastrointestinal: no abdominal pain, no bloating, no early satiety, no nausea and no vomiting Genitourinary: no dysuria, no difficulty urinating, no urinary frequency and no urinary urgency Musculoskeletal: + back pain (R sided back pain, chronic secondary to cancer) Integumentary: no erythema Neurologic: + headache(s) (R frontal to touch); no g eneralized weakness, no tingling and no numbness Physical Exam Physical Exam: Physical Exam: General: No acute distress, chronically ill-appearing but nontoxic HEENT: Normocephalic, atraumatic, no scleral icterus, pupils around round, symmetrical, and reactive to light, dry mucus membranes, trachea midline, no thyromegaly Chest/Pulm: No respiratory distress, symmetrical chest expansion, lung rhonchi noted in the left lower lobe with significant expiratory wheezing in all other lung dorantes Cardiac: Irregular rate and rhythm, 4/6 systolic murmur noted Abdomen: Negative for ascites and bruising, normoactive bowel sounds, soft, non-tender to palpation throughout Musculoskeletal: No acute trauma, able to move bilateral upper and lower extremities without issue, no pain on palpation of the entire/spine Extremities: Radial, dorsalis pedis, and posterior tibial pulses are intact and symmetrical, left lower extremity with erythema and swelling compared to right Skin: Erythema noted lower aspect of the left lower extremity consistent with otherwise no acute changes Neuro: Alert and oriented to person, place, month, year, and president, no focal defects, CN II-XII tested and intact, no tremors noted Psych: No acute distress, calm and cooperative during the exam Constitutional: WD/WN, vitals as above Eyes: PERRL, conjunctivae normal, anicteric sclerae ENMT: external ear and nose normal, oropharynx normal Neck: trachea midline Respiratory: normal respiratory effort; no respiratory distress Auscultation: + wheezes (Bilateral expiratory wheezing lower lobes) Cardiovascular: Rate/Rhythm: regular rate and regular rhythm Gastrointestinal (Abdomen): normal bowel sounds, soft, nontender, no hepatosplenomegaly Musculoskeletal: no cyanosis or clubbing, extremities motor strength 5/5 No left calf swelling, erythema Skin: no rashes, warm and dry Neurologic: CN's II-XI intact bilaterally and awake; not confused Results & Data Results & Data Vital Signs (Past 12 Hours) Vital Signs Temp Pulse Pulse Resp BP Pulse Ox O2 Del Method 04/02/24 15:26 36.7 C 73 18 106/63 91 Room Air 04/02/24 11:33 36.6 C 77 18 120/77 91 Room Air 04/02/24 08:10 36.9 C 84 18 138/83 91 Room Air 04/02/24 07:45 76 04/02/24 07:05 87 17 92 Room Air PG Care Time/CCT Total # of Minutes Spent Total Time Spent with Patient: Total time spent is greater than 50% in coordination of care (as documented) at patient's floor/unit and/or counseling patient: Coding [place] [address] SUB INP/OBS CARE 3/50MIN Patient Type Established Medical Decision Making Moderate Complexity Diagnoses Unwitnessed fall R29.6 Elevated troponin R79.89 Aspiration pneumonia J69.0 Cancer related pain G89.3 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
[2024-04-02] MEDS: oxyCODONE/ACETAMINOPHEN 10-325 TAB PO PRN (22:23)
[2024-04-02] MEDS: PROCHLORPERAZINE 5 MG in SYRINGE 4 ML IV PRN (22:43)
[2024-04-03] MEDS: guaiFENesin/DEXTROM SYRUP 100MG/10MG 5ML UDC PO PRN (06:26)
--- NOTE | 2024-04-03 07:25 | Hospitalist Progress Note ---
Date of Service April 03, 2024 Assessment & Plan (1) Unwitnessed fall: (2) Elevated troponin: (3) Cancer related pain: (4) Brain metastasis: (5) Small cell carcinoma of lung: Plan 1) Unwitnessed fall Currently stable nontoxic-appearing stable in the ED, nonfocal neurologic exam, no acute changes on CT of the head and brain without contrast Unsure of the pathology of her fall at this time, patient does have risk factors with her history of metastatic lung cancer to the brain No signs of arrhythmia ECG, cannot rule out polypharmacy as possible etiology Continue to monitor on telemetry for now, follow-up precautions have been ordered, Will obtain TTE tomorrow, if clinical concern increases could obtain MRI of the brain with without contrast PT/OT consults ordered Heart healthy/DM type II diet with aspiration precautions and easy to chew texture AM CBC, CMP, Mg, PT/INR (2) Elevated troponin HS troponin, 195 <-- 707 <-- 667 (admission) No current chest pain, no acute ST segment or T wave changes on EKG Likely due to demand from patient's known coronary artery disease and significant stress with her fall and being on the ground for multiple hours today Continue to monitor on telemetry Echo: Aortic valve functionally bicuspid, LV EF, 50-55% (3) Aspiration pneumonia CT of the chest notes possible aspiration pneumonia with some debris noted in the esophagus patient mentioned she may have been eating prior to CT scan which may explain the debris in the esophagus For now we will start Unasyn and keep the patient on aspiration precautions with easy to chew diet Speech therapy consult placed, recommended barium swallow test and videography, (4) Cancer related pain Patient recently had her pain management increased with oxycodone ER to 40 mg twice daily from 30 mg twice daily Also on Percocet (oxy/acet) 10/325 1 tab every 4 hours as needed, Lyrica (pregab) 150 mg 3 times daily Difficult situation as she has legitimate reasons for pain but may be building tolerance Will continue on current pain regimen for now (5) Small cell carcinoma of lung [facility] and [facility] oncology Continue follow-up with both on discharge (6) Paroxysmal atrial fibrillation Currently in normal sinus rhythm Continue metoprolol and Eliquis (7) COPD (chronic obstructive pulmonary disease) Currently stable on room air but with significant expiratory wheezing Continue to stress importance of smoking cessation Will give DuoNeb now and then continue every 6 hours as needed Incentive spirometry, flutter therapy, as needed O2 to keep SpO2 between 89- 92% Continue home budesonide and formoterol nebs (8) Diabetes mellitus, type 2 Monitor BSG ACHS, goal is [id number] Hold metformin for now Start CF of 5 CR 15 ACHS for now Code status: Full code Disposition: Med-Surg Tele DVT Prophylaxis: Eliquis, 5mg, PO, BID PABLOI: NPO Admission and Anticipated Discharge Date Admission Date: April 01, 2024 Danitza Gann is a 64 y/o female who presented to the hospital s/p fall. Her son found her on the floor and she was there for a few hours. When he checked on her again, she was confused and hadn't improved so they brought her in to the hospital. They report that a similar situation occurred a few weeks ago where she was disoriented for a few hours but was in bed the entire time and did not fall. She has chronic left back pain, some mild R frontal palpable head pain, but otherwise denies any new or worsening pains. No evidence of bruising or contusion noted on her head. [facility] cell [facility] cancer with metastasis to the brain. She recently had an increase of her Oxycontin. She takes Percocet for pain between 4-6 times/day. On Wednesday, she increased her dose of Oxycontin per prescriber order and also took 6 percocet pills throughout the day. When speaking with her, she feels this may have contributed to her fall. Review of Systems Constitutional: no fever, no chills, no fatigue and no weakness Respiratory: + cough (productive cough ) and + dyspne a on exertion; no chest congestion Cardiovascular: no chest pain and no palpitations Gastrointestinal: no abdominal pain, no nausea, no vomiting, no constipation and no diarrhea/loose stools Genitourinary: no dysuria and no urinary frequency Neurologic: no tingling, no numbness and no headache(s) Physical Exam Constitutional: WD/WN, vitals as above Respiratory: normal respiratory effort, lungs clear to auscultation Cardiovascular: RRR, no murmur, no edema Extremities: normal capillary refill; no calf tenderness and no pedal edema Gastrointestinal (Abdomen): normal bowel sounds, soft, nontender, no hepatosplenomegaly Psychiatric: A+Ox3, euthymic affect Affect: + anxious affect Mood: + anxious mood Results & Data Results & Data Vital Signs (Past 12 Hours) Vital Signs Temp Pulse Pulse Resp BP Pulse Ox Pulse Ox 04/03/24 07:07 90 18 95 04/03/24 03:41 36.9 C 98 H 20 147/84 H 92 04/02/24 23:40 36.6 C 76 20 108/65 92 04/02/24 22:22 92 04/02/24 21:35 79 04/02/24 20:16 90 20 96 04/02/24 20:05 36.6 C 79 20 101/64 93 O2 Del Method O2 Del Method 04/03/24 07:07 Room Air 04/03/24 03:41 Room Air 04/02/24 23:40 Room Air 04/02/24 22:22 Room Air 04/02/24 21:35 04/02/24 20:16 Room Air 04/02/24 20:05 Room Air Resident Activity Tracking Resident Involvement: Resident Care Provided Care Provided: Adult Hospital Medicine (5) Small cell carcinoma of lung Laterality: left Lung location: lower lobe of lung Qualified Code(s): C34.32 - Malignant neoplasm of lower lobe, left bronchus or lung
[2024-04-03 07:45] LABS: Basophils # (auto) 0.02 K/uL (0.00-0.20); Basophils % (auto) 0.4 %; Eosinophils # (auto) 0.09 K/uL (0.00-0.50); Eosinophils % (auto) 1.8 %; Hematocrit (blood only) 34.4 % (37.0-47.0); Hemoglobin 10.8 g/dl (12.0-16.0); Immature Granulocytes # (auto) 0.07 K/uL (0.01-0.20); Immature Granulocytes % (auto) 1.4 %; Lymphocytes # (auto) 0.53 K/uL (1.20-3.40); Lymphocytes % (auto) 10.5 %; Mean Corpuscular Hemoglobin 28.6 pg (25.0-34.0); Mean Corpuscular Hgb Conc 31.4 g/dL (32.0-36.0); Mean Corpuscular Volume 91.2 fL (80.0-100.0); Mean Platelet Volume 9.4 fL (9.4-12.4); Monocytes # (auto) 0.49 K/uL (0.11-0.59); Monocytes % (auto) 9.7 %; Neutrophils # (auto) 3.86 K/uL (1.40-6.50); Neutrophils % (auto) 76.2 %; Platelet Count 159 K/uL (130-400); RDW Coefficient of Variation 14.9 % (11.5-14.5); RDW Standard Deviation 49.5 fL (36.4-46.3); Red Blood Count 3.77 M/uL (4.20-5.40); White Blood Count 5.06 K/ul (4.8-10.8)
[2024-04-03 07:53] LABS: INR 0.9 (0.9-1.1)
[2024-04-03 08:03] LABS: Albumin Globulin Ratio 1.3 (0.9-2); Albumin Level 3.5 gm/dl (3.4-5.0); BUN Creatinine Ratio 15.9 (10-20); Bilirubin,Total 0.6 mg/dl (0.2-1.0); Calcium 9.1 mg/dl (8.6-10.3); Creatinine Clr Calc Pharmacy 102.7 ml/min; Est GFR (African American) 109.1 ml/min; Est GFR (Non-African American) 94.1 ml/min; Globulin 2.8 gm/dl (2.5-4.0); Magnesium 1.7 mg/dl (1.7-2.4); Potassium 4.5 mmol/L (3.5-5.1); Total Protein 6.3 gm/dl (6.0-8.3)
[2024-04-03 11:41] VITALS: PULSE 69; RESP 18; O2SAT 90
[2024-04-03 16:06] VITALS: BP 112/70; TEMP 97.9
--- NOTE | 2024-04-03 17:16 | Discharge Summary ---
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 Per the ED staff the patient reportedly fell while walking in the bathroom around 3 AM this morning. The last thing she remembers is waking on the floor and her found her around 9 AM this morning. It took her multiple hours to get get up due to abdominal pain. When her home health nurse came this afternoon and ordered would have been EMS was called. She remained stable in the ED. Labs were significant for a corrected sodium of 131, chloride of 94, initial high-sensitivity troponin of 667, UA consistent with dehydration negative alcohol level, with urine toxicology screen in process. CT of the head and brain without contrast was read as negative for acute findings. CT of the cervical spine was negative for acute trauma but noted that the upper esophagus is filled with debris making the patient high risk for aspiration. CT of the chest, abdomen, and pelvis with IV contrast was read as negative for posttraumatic intrathoracic abnormality. Emphysema. No evidence of solid organ injury in the abdomen or pelvis. There is airspace consolidation with fibrosis, architectural distortion, and volume loss throughout the left lung. This has significantly progressed from 12/28/2023 and likely represents treatment related change. Superimposed pneumonia is not excluded medical correlation required. Residual tumor cannot be excluded. The mass at the left lung base seen previously appears decreased in size and complements from previous. There is trace pleural fluid on the left chest. No pneumothorax is seen. Hepatosplenomegaly. Right-sided nephrolithiasis. The esophagus is mildly dilated and filled with debris to the level of the thoracic inlet. Note this may place the patient have her high risk for aspiration. There is unchanged aneurysmal dilation of the abdominal aorta which measures up to 3.7 cm in diameter. Prior to admission the patient was given 1 L normal saline, 4 mg IV morphine, 4 mg IV Zofran. 10 mg p.o. oxycodone, and additional 20 mg p.o. oxycodone. Patient was sitting in bed in no acute distress at the time of exam. She explains that she must of fallen when she walked to the bathroom around 3 AM this morning. Does not remember the events surrounding this event. Confirms the rest of the above history. After receiving her chronic pain meds in the ED her pain is significantly improved. Working on continue to reduce the amount she is smoking daily but still smoking at least a half a pack a day. States that she has not been sleeping well and wants to be started on his "sleeping pill". I explained that this would not be done inpatient as this will be an outpatient issue and explained that this would be very high risk given the manage sedating medication she is already on. Denies recent fever, chills, chest pain, current abdominal pain, nausea/vomiting, dysuria/hematuria, melena/diarrhea, states that left lower extremity is normally more swollen than her right. Wishes to be full code and for her to make medical decisions for her she not make them herself. Please refer to Dr. Naranjo's attestation for any changes to the treatment plan Admission Exam Per Admitting Provider Physical Exam: General: In no acute distress, older than stated age, poor hygiene, chronically ill-appearing but nontoxic HEENT: Normocephalic, atraumatic, no scleral icterus, pupils around round, symmetrical, and reactive to light, dry mucus membranes, trachea midline, no thyromegaly Chest/Pulm: No respiratory distress, symmetrical chest expansion, lung rhonchi noted in the left lower lobe with significant expiratory wheezing in all other lung dorantes Cardiac: Irregular rate and rhythm, 4/6 systolic murmur noted Abdomen: Negative for ascites and bruising, normoactive bowel sounds, soft, non- tender to palpation throughout Musculoskeletal: No acute trauma, able to move bilateral upper and lower extremities without issue, no pain on palpation of the entire/spine Extremities: Radial, dorsalis pedis, and posterior tibial pulses are intact and symmetrical, left lower extremity with erythema and swelling compared to right Skin: Erythema noted lower aspect of the left lower extremity consistent with otherwise no acute changes Neuro: Alert and oriented to person, place, month, year, and president, no focal defects, CN II-XII tested and intact, no tremors noted Psych: No acute distress, calm and cooperative during the exam Principal Diagnosis Accidental opioid overdose, mild dysphagia Discharge Exam Constitutional WD/WN, vitals as above Respiratory normal respiratory effort, lungs clear to auscultation Cardiovascular RRR, no murmur, no edema Extremities: normal capillary refill; no calf tenderness and no pedal edema Gastrointestinal (Abdomen) normal bowel sounds, soft, nontender, no hepatosplenomegaly Psychiatric A+Ox3, euthymic affect Affect: + anxious affect Mood: + anxious mood Discharge Data Allergies Allergy/AdvReac Type Severity Reaction Status Date / Time latex Allergy Intermediate skin Verified 03/31/24 14:52 itching Influenza Virus Vaccines AdvReac Severe developed Verified 03/31/24 14:52 blood clots vaccine adjuvant system, AdvReac Severe blood clots Verified 03/31/24 14:52 [id number] liposomal [From Shingrix (PF)] varicella-zoster virus AdvReac Severe blood clots Verified 03/31/24 14:52 glycoprotein E, recombinant [From Shingrix (PF)] Consultations 04/01/24 20:14 ED Decision to Admit Stat Ordered Studies 04/01/24 18:27 CT abd pelvis IV con only Stat CT cervical spine wo con Stat CT chest diagnostic w con Stat CT head/brain wo con Stat 04/02/24 US venous doppler LE LT Routine 04/03/24 13:00 FL barium swallow Routine 04/03/24 13:30 FL video swallow Routine Hospital Course (1) Unwitnessed fall: (2) Elevated troponin: (3) Cancer related pain: (4) Brain metastasis: (5) Small cell carcinoma of lung: Plan 1) Unwitnessed fall/accidental opioid overdose Currently stable nontoxic-appearing stable in the ED, nonfocal neurologic exam, no acute changes on CT of the head and brain without contrast Unsure of the pathology of her fall at this time, patient does have risk factors with her history of metastatic lung cancer to the brain No signs of arrhythmia ECG, cannot rule out polypharmacy as possible etiology Continue to monitor on telemetry for now, follow-up precautions have been ordered, Heart healthy/DM type II diet with aspiration precautions and easy to chew texture - Patient recommended to take pain meds only when beginning to feel pain, not if afraid that pain is imminent; recommended to get second opinion regarding whether she needs her PRN pain meds (2) Elevated troponin HS troponin, 195 <-- 707 <-- 667 (admission) No current chest pain, no acute ST segment or T wave changes on EKG Likely due to demand from patient's known coronary artery disease and signif icant stress with her fall and being on the ground for multiple hours today Continue to monitor on telemetry Echo: Aortic valve functionally bicuspid, LV EF, 50-55% (3) Aspiration pneumonia CT of the chest notes possible aspiration pneumonia with some debris noted in the esophagus patient mentioned she may have been eating prior to CT scan which may explain the debris in the esophagus For now we will start Unasyn and keep the patient on aspiration precautions with easy to chew diet Speech therapy consult placed, recommended barium swallow test and videogra phy, - Barium swallow/videography showed moderate oropharyngeal dysphagia. (4) Cancer related pain Patient recently had her pain management increased with oxycodone ER to 40 mg twice daily from 30 mg twice daily Also on Percocet (oxy/acet) 10/325 1 tab every 4 hours as needed, Lyrica (pregab) 150 mg 3 times daily Difficult situation as she has legitimate reasons for pain but may be building tolerance Will continue on current pain regimen for now (5) Small cell carcinoma of lung [facility] and [facility] onc[facility] Continue follow-up with both on discharge (6) Paroxysmal atrial fibrillation Currently in normal sinus rhythm Continue metoprolol and Eliquis (7) COPD (chronic obstructive pulmonary disease) Currently stable on room air but with significant expiratory wheezing Continue to stress importance of smoking cessation Will give DuoNeb now and then continue every 6 hours as needed Incentive spirometry, flutter therapy, as needed O2 to keep SpO2 between 89- 92% Continue home budesonide and formoterol nebs (8) Diabetes mellitus, type 2 Monitor BSG ACHS, goal is [id number] Start CF of 5 CR 15 ACHS for now Continue metformin upon discharge Total Time Total Time Spent Total Time Spent (In Minutes): <30 Discharge Plan Discharge Items Patient Disposition: Home - Self-Care Reason For Visit: UNWITNESSED FALL, ELEVATED TROPONIN, GENERALIZED P Discharge Diagnosis: mild dysphagia, accidental opioid overdose Activity: Resume your previous activity Non-emergency contact: Primary Care Provider and Oncologist Call non-emergency contact if: you have any medication questions, your symptoms worsen and your pain is concerning for you Follow-up/Referrals: Katarina Andre MD [Primary Care Provider] - 04/13/24 11:30 am Diet: Carb Consistent or DM2 and Heart Healthy Addtl Attending Provider Instructions: You were admitted to the hospital for unwitnessed fall, elevated troponins, general confusion/disorientation. You were treated with your home meds. A discharge summary will be sent to your primary care physician to ensure continuity of care. Please bring this discharge summary with you to your next office appointment so that your provider can review it at that time. Follow-up appointments: We have requested a follow-up appointment with your primary care physician wi kendy one week of discharge. Please call their office if you do not hear from them.] Keep all your follow-up appointments as already scheduled. If you cannot make an appointment, notify your provider. Medications: Your medication list has been reviewed and reconciled upon discharge to ensure accuracy and continuity of care. An updated list of all your medications is included with your hospital discharge paperwork. Please review this list closely, and make note of any changes. Take your medications as instructed; do not skip a dose of your medicines. Make sure all of your doctors know every medicine you are taking (including todm-dja-styhalc medicines, vitamins, and supplements). Call your primary care provider before taking any new medicines (including dmhb-gxz-fdwafkn medicines, vitamins, and supplements), because some of these may interact with your current medications, or may make your symptoms worse. Tell your primary care provider if you cannot afford your medications. CONTACT YOUR PRIMARY CARE PROVIDER if you experience any of the following: recurrent falls, loss of consciousness, confusion/disorientation Difficulty following your treatment plan, or difficulty taking medications CALL 911 OR GO TO THE EMERGENCY DEPARTMENT if you experience any of the following: Sudden, severe abdominal pain or nausea/vomiting Severe chest pain, or chest pain that radiates (moves) to your jaw or arm Sudden, severe shortness of breath or difficulty breathing Thank you for allowing us to participate in your care. Pending Studies at Discharge: No Stand-Alone Forms: [facility], Smoking Cessation Medications and DC Order Prescriptions: Continued metformin 500 mg tablet 500 mg PO BID Patient Comments: admits has not been taking (DME) Wheeled Walker Misc See Rx Instructions .Route Qty: 1 0RF Rx Instructions: w/ a seat and hand brakes atorvastatin 40 mg tablet 40 mg PO HS Qty: 90 1RF Rx Instructions: 40 mg PO at bedtime (DME) Hospital Bed Homecare Misc See Rx Instructions .Route Qty: 1 0RF Rx Instructions: As directed (DME) Wheelchair (Manual) Device See Rx Instructions .Route Qty: 1 0RF Rx Instructions: As directed (DME) WHEEL MOBILITY SCOOTER See Rx Instructions .Route .MEDSUPPLY Qty: 1 0RF Rx Instructions: As directed (DME) transport chair See Rx Instructions .Route .MEDSUPPLY Qty: 1 0RF Rx Instructions: As directed Magic Mouthwash 300 mL mouthwash 10 ml mucous membrane ACHS PRN (Reason: dysphagia) Qty: 300 3RF isosorbide mononitrate 30 mg tablet extended release 24 hr 30 mg PO QAM Qty: 30 5RF (DME) OneTouch Ultra Test Strip See Rx Instructions .Route Qty: 100 0RF Rx Instructions: As directed lorazepam 1 mg tablet 1 mg PO TID PRN (Reason: anxiety, cancer) Qty: 90 5RF Eliquis 5 mg tablet 5 mg PO BID Qty: 60 0RF Rx Instructions: start 10/26/23 in the evening budesonide 0.5 mg/2 mL suspension for nebulization 0.5 mg NEB BID Qty: 60 6RF formoterol fumarate [Perforomist] 20 mcg/2 mL solution for nebulization 20 mcg inhalation BIDR Qty: 60 6RF pregabalin [Lyrica] 150 mg capsule 150 mg PO TID Qty: 90 2RF oxycodone-acetaminophen [Percocet] 10-325 mg tablet 1 tab PO Q4H PRN (Reason: pain) Qty: 180 0RF nitrofurantoin monohyd/m-cryst [Macrobid] 100 mg capsule 100 mg PO Q12H 7 Days Qty: 14 0RF Rx Instructions: must administer with a meal/food zolpidem [Ambien CR] 6.25 mg tablet,ext release multiphase 6.25 mg PO HS Qty: 30 0RF nitroglycerin 0.4 mg tablet, sublingual 0.4 mg sublingual Q5M PRN (Reason: chest pain) Qty: 30 4RF Rx Instructions: do not exceed 3 doses per episode. call 911 if ongoing chest pain. levothyroxine [Synthroid] 50 mcg tablet 50 mcg PO QAM pantoprazole 40 mg tablet,delayed release (DR/EC) 40 mg PO QAM Qty: 90 0RF ondansetron HCl 4 mg tablet 4 mg PO QID PRN (Reason: nausea and vomiting) Qty: 120 5RF (DME) blood-glucose meter [OneTouch Ultra2 Meter] Misc See Rx Instructions .Route Qty: 1 0RF Rx Instructions: As directed (DME) lancets [OneTouch Delica Plus Lancet] 33 gauge misc See Rx Instructions .Route Qty: 100 0RF Rx Instructions: As directed albuterol sulfate 90 mcg/actuation HFA aerosol inhaler 2 puff inhalation QID PRN (Reason: shortness of breath or wheezing) Qty: 6.7 3RF promethazine-codeine 6.25-10 mg/5 mL syrup 5 ml PO Q8H PRN (Reason: cough) Qty: 473 0RF Incruse Ellipta 62.5 mcg/actuation blister with device 1 inh inhalation DAILY Qty: 30 6RF oxycodone 40 mg tablet,oral only,ext.rel.12 hr 40 mg PO BID Qty: 60 0RF (DME) Emotional Support Animal See Rx Instructions .Route .MEDSUPPLY Qty: 1 0RF Rx Instructions: Patient needs this for Anxiety and overall health levocetirizine [Xyzal] 5 mg tablet 5 mg PO DAILY PRN (Reason: allergies) nicotine 21-14-7 mg/24 hr patch, TD daily, sequential 1 patch transdermal DAILY Patient Comments: patient states not currently wearing Rx Instructions: apply 1-21 mg NICOTINE PATCH daily for 28 days; follow with 1-14 mg PATCH daily for 14 days, then 1-7mg PATCH daily for 14 days transdermal olanzapine 2.5 mg tablet 2.5 mg PO UD PRN (Reason: n/v) prochlorperazine maleate 10 mg tablet 10 mg PO DIRECTED PRN (Reason: NAUSEA/VOMITING) ranolazine 500 mg Tablet Extended Release 12 Hr 500 mg PO BID Qty: 60 4RF metoprolol succinate 50 mg tablet extended release 24 hr 50 mg PO DAILY Qty: 30 4RF Discharge Orders: Discharge Order (Routine); Ordered 04/03/24 Ordered By: Orlando Toussaint Admission Data Admit Date/Time: 04/01/24 20:51 Attending Provider: Zbigniew Velasquez Admit Provider: Juan David Naranjo Primary Care Provider: Katarina Andre Other Providers: Juan David Naranjo; [facility],Home Healthcare Supervising Physician Co-Signing Physician Notes I personally examined the patient and verified all franks points of history and exam, discussed case, and agree with decision making with Dr Toussaint Feels okay and would like to go home. Extensive discussions. Vitals noted, in general she is awake and alert pleasant no distress. Breathing unlabored no accessory muscle use good effort. Skin without rashes pallor or icterus. Neuro without focal deficits. Accidental overdosesafe/stable for home. We discussed she is in a very difficult situation given that she has fairly severe and very real cancer pain, but at the same time she seems to have a bit of a propensity towards accidental overdose. Yesterday we discussed (with family present) that it would make sense for her as well as a family member to both agree prior to her taking a breakthrough medicationthis would allow for a safety net of someone else being able to see that she is awake and alert rather than taking medication when she might already be partially sedated. She is willing to do thisher family was quite willing. Today we discussed furtherand it sounds like she will often take a breakthrough medication out of fear of pain, but before she is really even started to feel pain starting. We discussed that this is quite common whenever people have chronic painbut to protect herself from further accidental overdoses, as well as to slow development of tolerance (which would obviously m cecilia the pain harder to control overall) it would behoove her to wait until she truly needs a breakthrough medication to take iteven if it is still a fairly low threshold when she does. Esophageal dysmotilitydiscussed diet changes and safe swallow strategiesone of her family works in a group home facility and expressed a good understanding of this and a willingness to help make it happen as well. Safe/stable for home. Otherwise as above Resident Activity Tracking Resident Involvement: Resident Care Provided Care Provided: Adult Hospital Medicine
--- NOTE | 2024-04-03 17:22 | Fluoroscopy Report ---
FL barium swallow CLINICAL HISTORY: hx of radiation, concern for possible aspiration COMPARISON STUDY: Chest CT 04/01/2024. FLUOROSCOPY TIME: 28 seconds FLUOROSCOPY IMAGES: 31 Ka,r: 10.7 mGy FINDINGS: The patient swallowed barium without difficulty. The contours of the hypopharynx are within normal limits. However, there is a small amount of aspiration identified during the early portion of examination. Therefore, examination was terminated. The esophagus is not well-distended but appears to be normal and course and caliber. IMPRESSION: Aspiration of barium identified during the examination. Therefore, the examination was te rminated early. ACT 112: Negative or not required by law. Electronically signed by: Junior Chan M.D. 04/03/2024 5:20 PM
--- NOTE | 2024-04-03 17:28 | Fluoroscopy Report ---
FL video swallow HISTORY: ? aspiration, esophageal debris on CT TECHNIQUE: Video fluoroscopic evaluation of swallowing was performed in the AP and lateral projection s by the speech pathology staff. The patient is fed nectar-thick and thin liquid barium, a barium coa osmar wafer, and barium pudding. FLUOROSCOPY TIME: 1 minute and 13 seconds. Ka,r: 7.5 mGy COMPARISON STUDY: None. FINDINGS: There is normal hyoid excursion and epiglottic deflection. There is premature spillover res ulting in multiple episodes of deep penetration to the level of the cords with the thin liquid and ne ctar thick liquid barium. No aspiration identified during the examination. Swallowing function with t he barium pudding and barium coated wafer was within normal limits. However, aspiration was identifie d during the barium swallow. IMPRESSION: 1. No aspiration identified during this examination. However, aspiration occurred during the barium s wallow 2. Please see the speech pathologist report for detailed findings and recommendations. ACT 112: Negative or not required by law. Electronically signed by: Junior Chan M.D. 04/03/2024 5:27 PM
--- NOTE | 2024-04-03 17:37 | Billing Data ---
Date of Service April 03, 2024 Coding Level of Care Code 94377 IN/OBS DISCH 30 MIN/LESS
[2024-04-05 09:42] LABS: Codeine Urine NEGATIVE ng/mL (<50); Hydrocodone Urine NEGATIVE ng/mL (<50); Hydromor Urine NEGATIVE ng/mL (<50); Marijuana Quant, GCMS Urine 62 ng/mL (<5); Morphine Urine 1180 ng/mL (<50); Norhydrocodone Conf Ur NEGATIVE ng/mL (<50); Noroxycodone Urine >10000 ng/mL (<50); Oxycodone Urine >10000 ng/mL (<50); Oxymorph Urine 8960 ng/mL (<50)
--- NOTE | 2024-04-05 15:42 | Electrocardiogram Report ---
Test Reason : Blood Pressure : */* mmHG Vent. Rate : 86 BPM Atrial Rate : 86 BPM P-R Int : 150 ms QRS Dur : 90 ms QT Int : 398 ms P-R-T Axes : 9 -7 161 degrees QTcB Int : 476 ms Normal sinus rhythm Minimal voltage criteria for LVH, may be normal variant ( Waldemar product ) Nonspecific ST and T wave abnormality Prolonged QT Abnormal ECG When compared with ECG of 29-Dec-2023 23:22, Questionable change in QRS axis ST no longer depressed in Inferior leads Confirmed by Meera Hudson ([id number]) on 04/02/2024 6:50:41 PM Referred By: REFERRED SELF Confirmed By: Meera Hudson
== END 2024-04-03 17:38 | disposition home or self-care (01) | DRG 917 ==
LOC: ED 17:05 → 2N 20:51 → SUATTDRO 20:51 → INTOOBSV 20:51 → 2N 21:58

== ENCOUNTER 2024-05-06 11:30 | Observation (INO) ==
[2024-05-06 11:58] LABS: Hematocrit (blood only) 38.4 % (37.0-47.0); Hemoglobin 12.4 g/dl (12.0-16.0); Mean Corpuscular Hemoglobin 29.2 pg (25.0-34.0); Mean Corpuscular Hgb Conc 32.3 g/dL (32.0-36.0); Mean Corpuscular Volume 90.6 fL (80.0-100.0); Mean Platelet Volume 10.5 fL (9.4-12.4); Platelet Count 168 K/uL (130-400); RDW Coefficient of Variation 16.4 % (11.5-14.5); RDW Standard Deviation 53.6 fL (36.4-46.3); Red Blood Count 4.24 M/uL (4.20-5.40); White Blood Count 4.75 K/ul (4.8-10.8)
[2024-05-06 12:02] LABS: Appearance Urine Clear (Clear); Bacteria Urine Automated None Seen (None Seen); Bilirubin Urine Negative (Negative); Blood Urine Negative (Negative); Cast Urine Automated 0-2 /lpf (0-2); Color Urine Yellow; Epithelial Cell Urine Auto 0-2 /hpf (0-2); Glucose Urine UA Negative (Negative); Ketones Urine Negative (Negative); Leukocyte Esterase Urine Trace (Negative); Nitrite Urine Negative (Negative); Protein Urine Negative (Negative); RBC Urine Automated 0-2 /hpf (0-2); Specific Gravity Urine 1.007 (1.000-1.030); Urobilinogen Urine Negative (Negative); WBC Urine Automated 0-5 /hpf (0-5); pH Urine 5.5 (4.5-7.5)
[2024-05-06 12:10] LABS: Base Excess VBG 3.8 mEq/L; HCO3 VBG 30 mmol/L; PCO2 VBG 49 mmHg (38-50); PO2 VBG 41 mmHg; pH VBG 7.39 (7.36-7.41)
--- NOTE | 2024-05-06 12:13 | Emergency Department Note ---
Impression & Plan Bilateral leg edema, Acute dyspnea, Acute hypoxemic respiratory failure, Non-ST elevation VA (NSTEMI), Elevated brain natriuretic peptide (BNP) level ED Provider Note HISTORY OF PRESENT ILLNESS: Patient is a 64-year-old female presenting with bilateral lower extremity edema and shortness of breath. Patient reports over the last week she has been having progressively worsening swelling of her lower extremities. She reports that she is not currently on any diuretics. Reports that she was significantly short of breath this morning. She has had a cough productive of yellow phlegm for the last 48 hours. She reports that members of her family were diagnosed with bronchitis recently. She has a history of COPD but does not wear any supplemental oxygen at baseline. She reports that she recently was told that she would need to have home oxygen and is in the process of getting that taken care of. She reports a history of CHF but is not on diuretics. She denies any chest pain with the shortness of breath. She denies any DVT or PE history. She has a history of lung cancer with mets to the brain. She reports she is on Plavix. ROS: as above PHYSICAL EXAM: Constitutional: Patient appears in no acute distress. HENT: Head: Normocephalic and atraumatic. Eyes: EOMI, PERRL Mouth/Throat: Mucous membranes moist. Neck: Trachea midline. Neck supple. Cardiovascular: RRR, No murmurs, rubs or gallops. Intact distal pulses. Pulmonary/Chest: Tachypneic. On 2 L nasal cannula. Slight expiratory wheezes bilaterally. Abdominal: Abdomen soft, no tenderness, rebound or guarding. Musculoskeletal: No tenderness or deformity noted. +2 pitting edema of the bilateral lower extremities extending to the knees. Skin: Warm and dry. No rash, erythema, pallor or cyanosis Psychiatric: Appropriate mood and affect for situation. Neurological: Alert and keenly responsive. CN II-XII grossly intact, moving all extremities equally and fully. MDM: - Vitals signs showed hypertension. Patient did ambulate to the restroom and when she got back on the monitor, she was found to be hypoxic to 87%. She was placed on 2 L nasal cannula. - History obtained via patient. History as above. 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 At this time, monitor showed rate of 70 bpm with normal sinus rhythm, per my interpretation. - External medical records reviewed. Discharge summary dated 04/03/2024 was reviewed. Patient was admitted that time after an accidental opioid overdose and with mild dysphagia. - EKG interpreted by myself showed normal sinus rhythm. Rate 75 bpm. QT 414. No acute ischemic changes. Noted to have some slight ST elevations in V1 and V2. - Laboratory workup interpreted by myself showed leukopenia (WBC 4.75); normal PT/INR; stable electrolytes; slightly elevated glucose (125 mg/dL); elevated troponin (36.3); elevated BNP (1129) - UA negative for infection - Viral respiratory panel negative. - VBG negative - CXR showed consolidation in the left midlung which is seen on previous x-rays, per my interpretation. - Patient given DuoNeb treatment for her work of breathing. On reassessment, she no longer seems to be struggling to catch her breath and her tachypnea has improved. She is given 80 mg IV Solu-Medrol and 40 mg IV Lasix. - Patient does appear clinically fluid overloaded and is on a new oxygen requirement. Will admit to hospitalist service - Discussion was had with hospice case manager about patient's case and need for admission - Hospitalist consulted for admission - Patient admitted to [facility] hospitalist service for further evaluation and management. ASSESSMENT AND PLAN: Diagnosis: Bilateral lower extremity edema; NSTEMI; elevated BNP; acute dyspnea; acute hypoxic respiratory failure Plan: Admit Past Med/Surg History Problem List (Updated 05/06/24 @ 14:15 by Bindu Mcqueen MD) Elevated brain natriuretic peptide (BNP) level (Acute) Non-ST elevation VA (NSTEMI) (Acute) Acute hypoxemic respiratory failure (Acute) Acute dyspnea (Acute) Bilateral leg edema (Acute) Lower extremity pain Unwitnessed fall (Acute) Aspiration pneumonia (Acute) Elevated troponin (Acute) Cancer related pain (Acute) Psychosocial problem Brain metastasis (Chronic) Hemoptysis Encounter for pain management Small cell carcinoma of lung (Acute) Anemia (Acute) Diabetes Unusual change in behavior 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 Lung cancer metastatic to brain Paroxysmal atrial fibrillation Aortic stenosis Coronary artery disease Chronic respiratory failure Obesity Takotsubo cardiomyopathy Aneurysmal dilatation History of COVID-19 Lumbar disc herniation Peripheral neuropathy Diabetes mellitus, type 2 Hx of deep venous thrombosis Anxiety Onychomycosis Hypotension Hypertensive urgency History of TIA (transient ischemic attack) History of myocardial infarction Surgical History History of cardiac cath History of cholecystectomy History of section History of coronary artery stent placement Family History Mother Myocardial infarction Daughter Myocardial infarction Denies family history of Ovarian cancer Prostate cancer Breast cancer Colorectal cancer Social History Smoking Status: Current every day smoker Tobacco Type: Cigarettes Age Started Using Tobacco: 15; packs per day: 1; Cigarettes Per Day: half a pack; Second Hand Exposure: No; Do You Dip or Chew Tobacco: No; Hx Alcohol Use: Yes Alcohol type: beer and wine Hx Substance Use: Yes Preferred Language: Northern Irish Communication Ability: Effective Visual Impairment: No Limitations Volunteer Firefighter Required: No Beliefs That Will Affect Care: Synagogue Synagogue Beliefs: Confucianism marital status: Current Living Situation: Spouse Current Living Situation Comment: and son current occupational status: disabled How many Children do You have: 6 Feels Safe at Home: Yes Childhood Exposure to Second-Hand Smoke: Yes Diet: diabetic and regular caffeine: Yes (Coffee) Dental Care, Regularly: No Physical Activity Frequency: Daily Physical Activity Frequency Comment: Daily housework/activites Seatbelt Use: always Sunscreen Use: No Assistive Devices: Walker Allergies Allergies Allergy/AdvReac Type Severity Reaction Status Date / Time latex Allergy Intermediate skin Verified 04/28/24 11:39 itching Influenza Virus Vaccines AdvReac Severe developed Verified 04/28/24 11:39 blood clots vaccine adjuvant system, AdvReac Severe blood clots Verified 04/28/24 11:39 [id number] liposomal [From Shingrix (PF)] varicella-zoster virus AdvReac Severe blood clots Verified 04/28/24 11:39 glycoprotein E, recombinant [From Shingrix (PF)] zolpidem [From Ambien] AdvReac Severe Hallucinati Verified 04/28/24 11:39 ng Home Meds Home Medications Medication Instructions Recorded Confirmed levothyroxine 50 mcg tablet 50 mcg PO QAM 01/09/20 04/28/24 (Synthroid) levocetirizine 5 mg tablet (Xyzal) 5 mg PO DAILY PRN allergies 05/26/23 04/28/24 nicotine 1 patch transdermal DAILY 09/17/23 04/28/24 21mg/24hr-14mg/24hr-7mg/24hr daily transderm patches,sequentl olanzapine 2.5 mg tablet 2.5 mg PO UD PRN n/v 11/04/23 04/28/24 prochlorperazine maleate 10 mg 10 mg PO DIRECTED PRN 12/28/23 04/28/24 tablet NAUSEA/VOMITING metformin 500 mg tablet 500 mg PO BID 03/01/24 04/28/24 fentanyl 50 mcg/hr transdermal 50 mcg transdermal Q72H 05/06/24 patch Previous Rx's Medication Instructions Recorded nitroglycerin 0.4 mg sublingual 0.4 mg sublingual Q5M PRN chest 01/14/23 tablet pain #30 tabs Wheeled Walker #1 ea 06/16/23 atorvastatin 40 mg tablet 40 mg PO HS #90 tabs 07/23/23 blood-glucose meter (OneTouch #1 ea 10/28/23 Ultra2 Meter) lancets 33 gauge (OneTouch Delica #100 ea 10/28/23 Plus Lancet) ondansetron HCl 4 mg tablet 4 mg PO QID PRN nausea and 10/28/23 vomiting #120 tabs Hospital Bed Homecare #1 ea 11/04/23 WHEEL MOBILITY SCOOTER #1 ea 11/08/23 Wheelchair (Manual) #1 ea 11/08/23 transport chair #1 ea 11/10/23 Magic Mouthwash 300 mL mouthwash 10 ml mucous membrane ACHS PRN 11/22/23 dysphagia #300 mL pantoprazole 40 mg tablet,delayed 40 mg PO QAM #90 tabs 11/22/23 release isosorbide mononitrate 30 mg 30 mg PO QAM #30 tabs 12/03/23 tablet,extended release 24 hr blood sugar diagnostic (OneTouch #100 ea 12/27/23 Ultra Test strips) metoprolol succinate 50 mg 50 mg PO DAILY #30 tabs 12/30/23 tablet,extended release 24 hr ranolazine 500 mg tablet,extended 500 mg PO BID #60 tabs 12/30/23 release,12 hr albuterol sulfate 90 mcg/actuation 2 puff inhalation QID PRN 02/11/24 aerosol inhaler shortness of breath or wheezing #6.7 grams promethazine 6.25 mg-codeine 10 5 ml PO Q8H PRN cough #473 mL 02/11/24 mg/5 mL syrup umeclidinium 62.5 mcg/actuation 1 inh inhalation DAILY #30 ea 02/11/24 blister powder for inhalation (Incruse Ellipta) budesonide 0.5 mg/2 mL suspension 0.5 mg (2 mL) NEB BID #60 doses 02/24/24 for nebulization formoterol fumarate 20 mcg/2 mL 20 mcg (2 mL) inhalation BIDR #60 02/28/24 solution for nebulization doses (Perforomist) Emotional Support Animal #1 ea 03/31/24 apixaban 5 mg tablet (Eliquis) 5 mg PO BID #60 tabs 04/19/24 pregabalin 150 mg capsule (Lyrica) 150 mg PO TID #90 caps 04/24/24 lorazepam 1 mg tablet 1 mg PO TID PRN anxiety, cancer 04/28/24 #90 tabs oxycodone-acetaminophen 10 mg-325 1 tab PO Q4H PRN cancer related 05/02/24 mg tablet (Percocet) breakthrough pain #180 tabs oxycodone 40 mg tablet,crush 40 mg PO BID cancer related pain 05/04/24 resistant,extended release 12 hr #60 tabs Results & Data (ED) Vital Signs Vital Signs - 24 hr 05/06/24 11:38 05/06/24 11:44 05/06/24 11:46 Temperature 36.7 C Temperature Source Oral Pulse Rate 72 83 Pulse Rate [Apical] Pulse Rhythm Regular Regular Pulse Strength Normal Respiratory Rate 22 22 Respiratory Effort / Characteristics Labored Respiratory Depth Normal Respiratory Pattern Regular Blood Pressure 171/110 H Blood Pressure [Right Arm] Blood Pressure Mean 130 Blood Pressure Mean [Right Arm] Blood Pressure Position Sitting Pulse Oximetry 91 91 93 Oxygen Delivery Method Room Air Nasal Cannula Nasal Cannula Oxygen Flow Rate 0 2 Sepsis Recent Fever Within 48 Hours No Sepsis New/Unexplained Change in Mental Status No Sepsis Action Taken by Nursing No Action Required Oxygen Flow Rate - Titration 1 Pulse Oximetry Post Tiitration 95 05/06/24 12:08 05/06/24 12:09 05/06/24 12:25 Temperature Temperature Source Pulse Rate 70 Pulse Rate [Apical] 70 70 Pulse Rhythm Pulse Strength Respiratory Rate 20 20 Respiratory Effort / Characteristics Non-Labored Non-Labored Respiratory Depth Normal Normal Respiratory Pattern Blood Pressure Blood Pressure [Right Arm] 171/110 H 162/90 H Blood Pressure Mean Blood Pressure Mean [Right Arm] 130 114 Blood Pressure Position Pulse Oximetry 94 96 Oxygen Delivery Method Nasal Cannula Nebulizer Oxygen Flow Rate 2 Sepsis Recent Fever Within 48 Hours Sepsis New/Unexplained Change in Mental Status Sepsis Action Taken by Nursing Oxygen Flow Rate - Titration Pulse Oximetry Post Tiitration 05/06/24 14:20 Temperature Temperature Source Pulse Rate Pulse Rate [Apical] Pulse Rhythm Pulse Strength Respiratory Rate Respiratory Effort / Characteristics Respiratory Depth Respiratory Pattern Blood Pressure Blood Pressure [Right Arm] Blood Pressure Mean Blood Pressure Mean [Right Arm] Blood Pressure Position Pulse Oximetry 87 L Oxygen Delivery Method Room Air Oxygen Flow Rate Sepsis Recent Fever Within 48 Hours Sepsis New/Unexplained Change in Mental Status Sepsis Action Taken by Nursing Oxygen Flow Rate - Titration Pulse Oximetry Post Tiitration Laboratory Data 05/06/24 11:40 05/06/24 11:40 Lab Results 05/06/24 05/06/24 05/06/24 Range/Units 11:40 11:45 11:47 WBC 4.75 L (4.8-10.8) K/ul RBC 4.24 (4.20-5.40) M/uL Hgb 12.4 (12.0-16.0) g/dl Hct 38.4 (37.0-47.0) % MCV 90.6 (80.0-100.0) fL MCH 29.2 (25.0-34.0) pg MCHC 32.3 (32.0-36.0) g/dL RDW Std Deviation 53.6 H (36.4-46.3) fL RDW Coeff of Chanel 16.4 H (11.5-14.5) % Plt Count 168 (130-400) K/uL MPV 10.5 (9.4-12.4) fL Immature Gran % (Auto) 0.8 % Neut % (Auto) 91.6 % Lymph % (Auto) 4.2 % [place] % (Auto) 2.1 % Eos % (Auto) 1.1 % Baso % (Auto) 0.2 % Neut # (Auto) 4.35 (1.40-6.50) K/uL Lymph # (Auto) 0.20 L (1.20-3.40) K/uL [place] # (Auto) 0.10 L (0.11-0.59) K/uL Eos # (Auto) 0.05 (0.00-0.50) K/uL Baso # (Auto) 0.01 (0.00-0.20) K/uL Immature Gran # (Auto) 0.04 (0.01-0.20) K/uL PT 11.0 (9.0-12.0) Seconds INR 1.0 (0.9-1.1) VBG pH (7.36-7.41) VBG pCO2 (38-50) mmHg VBG pO2 mmHg VBG HCO3 mmol/L VBG O2 Saturation % VBG Base Excess mEq/L Sodium 135 L (136-145) mmol/L Potassium 4.3 (3.5-5.1) mmol/L Chloride 100 (98-107) mmol/L Carbon Dioxide 30 (21-32) mmol/L Anion Gap 5 (3-11) BUN 9 (6-23) mg/dl Creatinine 0.75 (0.6-1.2) mg/dl Est Cr Clr Drug Dosing 88.8 ml/min Est GFR ( Amer) 96.9 ml/min Est GFR (Non-Af Amer) 83.6 ml/min BUN/Creatinine Ratio 12.0 (10-20) Glucose 125 H (70-99(Fasting)) mg/dl Calcium 9.6 (8.6-10.3) mg/dl Magnesium 1.8 (1.7-2.4) mg/dl Total Bilirubin 0.6 (0.2-1.0) mg/dl AST 14 (13-39) U/L ALT 10 (7-52) U/L Alkaline Phosphatase 80 (34-104) U/L Troponin I High Sens 36.3 H (0-14) pg/ml B-Natriuretic Peptide 1129 H (0-100) pg/ml Total Protein 7.0 (6.0-8.3) gm/dl Albumin 4.1 (3.4-5.0) gm/dl Globulin 2.9 (2.5-4.0) gm/dl Albumin/Globulin Ratio 1.4 (0.9-2) Urine Color Yellow Urine Appearance Clear (Clear) Urine pH 5.5 (4.5-7.5) Ur Specific [place] 1.007 (1.000-1.030) Urine Protein Negative (Negative) Urine Glucose (UA) Negative (Negative) Urine Ketones Negative (Negative) Urine Blood Negative (Negative) Urine Nitrite Negative (Negative) Urine Bilirubin Negative (Negative) Urine Urobilinogen Negative (Negative) Ur Leukocyte Esterase Trace H (Negative) Urine WBC (Auto) 0-5 (0-5) /hpf Urine RBC (Auto) 0-2 (0-2) /hpf U Hyaline Cast (Auto) 0-2 (0-2) /lpf U Epithel Cells (Auto) 0-2 (0-2) /hpf Urine Bacteria (Auto) None Seen (None Seen) Adenovirus (PCR) Not Detected (NotDetected) B. pertussis DNA (PCR) Not Detected (NotDetected) B.parapertussis DNA PCR Not Detected (NotDetected) C. pneumoniae DNA (PCR) Not Detected (NotDetected) Coronavirus OC43 (PCR) Not Detected (NotDetected) Coronavirus HKU1 (PCR) Not Detected (NotDetected) Coronavirus 229E (PCR) Not Detected (NotDetected) SARS-CoV-2 (PCR) Not Detected (NotDetected) Coronavirus NL63 (PCR) Not Detected (NotDetected) Human Metapneumovir PCR Not Detected (NotDetected) Influenza Type A (PCR) Not Detected (NotDetected) Influenza Type B (PCR) Not Detected (NotDetected) M. pneumoniae (PCR) Not Detected (NotDetected) Parainfluenza 1 (PCR) Not Detected (NotDetected) Parainfluenza 2 (PCR) Not Detected (NotDetected) Parainfluenza 3 (PCR) Not Detected (NotDetected) Parainfluenza 4 (PCR) Not Detected (NotDetected) RSV (PCR) Not Detected (NotDetected) Entero/Rhino (PCR) Not Detected (NotDetected) 05/06/24 05/06/24 Range/Units 12:05 13:40 WBC (4.8-10.8) K/ul RBC (4.20-5.40) M/uL Hgb (12.0-16.0) g/dl Hct (37.0-47.0) % MCV (80.0-100.0) fL MCH (25.0-34.0) pg MCHC (32.0-36.0) g/dL RDW Std Deviation (36.4-46.3) fL RDW Coeff of Chanel (11.5-14.5) % Plt Count (130-400) K/uL MPV (9.4-12.4) fL Immature Gran % (Auto) % Neut % (Auto) % Lymph % (Auto) % [place] % (Auto) % Eos % (Auto) % Baso % (Auto) % Neut # (Auto) (1.40-6.50) K/uL Lymph # (Auto) (1.20-3.40) K/uL [place] # (Auto) (0.11-0.59) K/uL Eos # (Auto) (0.00-0.50) K/uL Baso # (Auto) (0.00-0.20) K/uL Immature Gran # (Auto) (0.01-0.20) K/uL PT (9.0-12.0) Seconds INR (0.9-1.1) VBG pH 7.39 (7.36-7.41) VBG pCO2 49 (38-50) mmHg VBG pO2 41 mmHg VBG HCO3 30 mmol/L VBG O2 Saturation 70.0 % VBG Base Excess 3.8 mEq/L Sodium (136-145) mmol/L Potassium (3.5-5.1) mmol/L Chloride (98-107) mmol/L Carbon Dioxide (21-32) mmol/L Anion Gap (3-11) BUN (6-23) mg/dl Creatinine (0.6-1.2) mg/dl Est Cr Clr Drug Dosing ml/min Est GFR ( Amer) ml/min Est GFR (Non-Af Amer) ml/min BUN/Creatinine Ratio (10-20) Glucose (70-99(Fasting)) mg/dl Calcium (8.6-10.3) mg/dl Magnesium (1.7-2.4) mg/dl Total Bilirubin (0.2-1.0) mg/dl AST (13-39) U/L ALT (7-52) U/L Alkaline Phosphatase (34-104) U/L Troponin I High Sens 31.0 H (0-14) pg/ml B-Natriuretic Peptide (0-100) pg/ml Total Protein (6.0-8.3) gm/dl Albumin (3.4-5.0) gm/dl Globulin (2.5-4.0) gm/dl Albumin/Globulin Ratio (0.9-2) Urine Color Urine Appearance (Clear) Urine pH (4.5-7.5) Ur Specific [place] (1.000-1.030) Urine Protein (Negative) Urine Glucose (UA) (Negative) Urine Ketones (Negative) Urine Blood (Negative) Urine Nitrite (Negative) Urine Bilirubin (Negative) Urine Urobilinogen (Negative) Ur Leukocyte Esterase (Negative) Urine WBC (Auto) (0-5) /hpf Urine RBC (Auto) (0-2) /hpf U Hyaline Cast (Auto) (0-2) /lpf U Epithel Cells (Auto) (0-2) /hpf Urine Bacteria (Auto) (None Seen) Adenovirus (PCR) (NotDetected) B. pertussis DNA (PCR) (NotDetected) B.parapertussis DNA PCR (NotDetected) C. pneumoniae DNA (PCR) (NotDetected) Coronavirus OC43 (PCR) (NotDetected) Coronavirus HKU1 (PCR) (NotDetected) Coronavirus 229E (PCR) (NotDetected) SARS-CoV-2 (PCR) (NotDetected) Coronavirus NL63 (PCR) (NotDetected) Human Metapneumovir PCR (NotDetected) Influenza Type A (PCR) (NotDetected) Influenza Type B (PCR) (NotDetected) M. pneumoniae (PCR) (NotDetected) Parainfluenza 1 (PCR) (NotDetected) Parainfluenza 2 (PCR) (NotDetected) Parainfluenza 3 (PCR) (NotDetected) Parainfluenza 4 (PCR) (NotDetected) RSV (PCR) (NotDetected) Entero/Rhino (PCR) (NotDetected) Administered Medications Discontinued Medications Albuterol (Albut/Ipratrop 3mg/0.5mg Neb 3 Ml Vial) 3 ml NEB NOW STA; Protocol Stop: 05/06/24 12:14 Last Admin: 05/06/24 12:24 Dose: 3 ml Documented By: ES Furosemide (Furosemide 40 Mg/4 Ml Vial) 40 mg IV ONE ONE Stop: 05/06/24 13:45 Last Admin: 05/06/24 13:55 Dose: 40 mg Documented By: BMW Methylprednisolone (Methylprednisolone 125 Mg/2 Ml Vial) 80 mg IV NOW STA Stop: 05/06/24 13:45 Last Admin: 05/06/24 13:55 Dose: 80 mg Documented By: BMW Imaging Data Radiologist's Impression: Chest X-Ray 05/06/24 11:39 SINGLE VIEW CHEST CLINICAL HISTORY: Dyspnea. Lung cancer. FINDINGS: 2 AP, portable, upright chest radiographs are compared to study dated 04/07/2024 and correlated with chest CT dated 04/01/2024. The right-sided PICC line seen previously has been removed. The heart is mildly enlarged and none atherosclerotic calcification of the thoracic aorta. The pulmonary vasculature is noncongested. Emphysema and chronic interstitial thickening is similar to previous. Again seen is a focus of confluent consolidation in the left midlung. This is unchanged from 04/07/2024. There are also mild airspace opacities at the left lung base. No pleural effusion or pneumothorax is seen. The skeletal structures are osteopenic. The bony thorax appears intact. IMPRESSION: 1. Cardiomegaly and emphysema. 2. Again seen is confluent airspace consolidation in the left mid lung, which is unchanged from 04/07/2024. Airspace opacities are again seen in the left lung base. These findings likely represent the patient's known lung mass with associated treatment related change/fibrosis. Clinical correlation will be required. ACT 112: Negative or not required by law. Electronically signed by: Onesimo Silvestre M.D. 05/06/2024 1:31 PM Discharge Plan Visit Data Chief Complaint: Shortness of Breath/Dyspnea Stated Complaint: SOB ED Provider: Bindu Mcqueen Discharge Problem: Bilateral leg edema, Acute dyspnea, Acute hypoxemic respiratory failure, Non-ST elevation VA (NSTEMI), Elevated brain natriuretic peptide (BNP) level Forms Stand Alone Forms: My [employer] Prescriptions Prescriptions: No Action metformin 500 mg tablet 500 mg PO BID Patient Comments: admits has not been taking (DME) Wheeled Walker [facility] [place] See Rx Instructions .Route Qty: 1 0RF Rx Instructions: w/ a seat and hand brakes atorvastatin 40 mg tablet 40 mg PO HS Qty: 90 1RF Rx Instructions: 40 mg PO at bedtime (DME) [facility] See Rx Instructions .Route Qty: 1 0RF Rx Instructions: As directed (DME) Wheelchair (Manual) Device See Rx Instructions .Route Qty: 1 0RF Rx Instructions: As directed (DME) WHEEL MOBILITY SCOOTER See Rx Instructions .Route .MEDSUPPLY Qty: 1 0RF Rx Instructions: As directed (DME) transport chair See Rx Instructions .Route .MEDSUPPLY Qty: 1 0RF Rx Instructions: As directed Magic Mouthwash 300 mL mouthwash 10 ml mucous membrane ACHS PRN (Reason: dysphagia) Qty: 300 3RF isosorbide mononitrate 30 mg tablet extended release 24 hr 30 mg PO QAM Qty: 30 5RF (DME) OneTouch Ultra Test Strip See Rx Instructions .Route Qty: 100 0RF Rx Instructions: As directed budesonide 0.5 mg/2 mL suspension for nebulization 0.5 mg NEB BID Qty: 60 6RF formoterol fumarate [Perforomist] 20 mcg/2 mL solution for nebulization 20 mcg inhalation BIDR Qty: 60 6RF Eliquis 5 mg tablet 5 mg PO BID Qty: 60 3RF Rx Instructions: start 10/26/23 in the evening pregabalin [Lyrica] 150 mg capsule 150 mg PO TID Qty: 90 2RF oxycodone-acetaminophen [Percocet] 10-325 mg tablet 1 tab PO Q4H PRN (Reason: cancer related breakthrough pain) Qty: 180 0RF oxycodone 40 mg tablet,oral only,ext.rel.12 hr 40 mg PO BID Qty: 60 0RF nitroglycerin 0.4 mg tablet, sublingual 0.4 mg sublingual Q5M PRN (Reason: chest pain) Qty: 30 4RF Rx Instructions: do not exceed 3 doses per episode. call 911 if ongoing chest pain. levothyroxine [Synthroid] 50 mcg tablet 50 mcg PO QAM pantoprazole 40 mg tablet,delayed release (DR/EC) 40 mg PO QAM Qty: 90 0RF ondansetron HCl 4 mg tablet 4 mg PO QID PRN (Reason: nausea and vomiting) Qty: 120 5RF (DME) blood-glucose meter [OneTouch Ultra2 Meter] Misc See Rx Instructions .Route Qty: 1 0RF Rx Instructions: As directed (DME) lancets [OneTouch Delica Plus Lancet] 33 gauge misc See Rx Instructions .Route Qty: 100 0RF Rx Instructions: As directed albuterol sulfate 90 mcg/actuation HFA aerosol inhaler 2 puff inhalation QID PRN (Reason: shortness of breath or wheezing) Qty: 6.7 3RF promethazine-codeine 6.25-10 mg/5 mL syrup 5 ml PO Q8H PRN (Reason: cough) Qty: 473 0RF Incruse Ellipta 62.5 mcg/actuation blister with device 1 inh inhalation DAILY Qty: 30 6RF (DME) Emotional Support Animal See Rx Instructions .Route .MEDSUPPLY Qty: 1 0RF Rx Instructions: Patient needs this for Anxiety and overall health lorazepam 1 mg tablet 1 mg PO TID PRN (Reason: anxiety, cancer) Qty: 90 5RF levocetirizine [Xyzal] 5 mg tablet 5 mg PO DAILY PRN (Reason: allergies) nicotine 21-14-7 mg/24 hr patch, TD daily, sequential 1 patch transdermal DAILY Patient Comments: patient states not currently wearing Rx Instructions: apply 1-21 mg NICOTINE PATCH daily for 28 days; follow with 1-14 mg PATCH daily for 14 days, then 1-7mg PATCH daily for 14 days transdermal olanzapine 2.5 mg tablet 2.5 mg PO UD PRN (Reason: n/v) prochlorperazine maleate 10 mg tablet 10 mg PO DIRECTED PRN (Reason: NAUSEA/VOMITING) ranolazine 500 mg Tablet Extended Release 12 Hr 500 mg PO BID Qty: 60 4RF metoprolol succinate 50 mg tablet extended release 24 hr 50 mg PO DAILY Qty: 30 4RF fentanyl 50 mcg/hr patch 72 hour 50 mcg transdermal Q72H Referrals Referrals: Katarina Andre MD [Primary Care Provider] -
[2024-05-06 12:19] LABS: Albumin Globulin Ratio 1.4 (0.9-2); Albumin Level 4.1 gm/dl (3.4-5.0); Bilirubin,Total 0.6 mg/dl (0.2-1.0); Calcium 9.6 mg/dl (8.6-10.3); Creatinine Clr Calc Pharmacy 88.8 ml/min; Est GFR (African American) 96.9 ml/min; Est GFR (Non-African American) 83.6 ml/min; Globulin 2.9 gm/dl (2.5-4.0); Magnesium 1.8 mg/dl (1.7-2.4); Potassium 4.3 mmol/L (3.5-5.1)
[2024-05-06 12:20] LABS: Basophils # (auto) 0.01 K/uL (0.00-0.20); Basophils % (auto) 0.2 %; Eosinophils # (auto) 0.05 K/uL (0.00-0.50); Eosinophils % (auto) 1.1 %; Immature Granulocytes # (auto) 0.04 K/uL (0.01-0.20); Immature Granulocytes % (auto) 0.8 %; Lymphocytes % (auto) 4.2 %; Monocytes % (auto) 2.1 %; Neutrophils # (auto) 4.35 K/uL (1.40-6.50); Neutrophils % (auto) 91.6 %
[2024-05-06] MEDS: ALBUT/IPRATROP 3MG/0.5MG NEB 3 ML VIAL NEB STA (12:24)
[2024-05-06 12:25] LABS: Troponin I High Sensitivity 36.3 pg/ml (0-14)
[2024-05-06 12:53] LABS: Adenovirus PCR Not Detected (NotDetected); Bordetella parapertussis PCR Not Detected (NotDetected); Bordetella pertussis PCR Not Detected (NotDetected); Chlamydia pneumoniae PCR Not Detected (NotDetected); Coronavirus 229E PCR Not Detected (NotDetected); Coronavirus CoV-2 (COVID19)PCR Not Detected (NotDetected); Coronavirus HKU1 PCR Not Detected (NotDetected); Coronavirus NL63 PCR Not Detected (NotDetected); Coronavirus OC43PCR Not Detected (NotDetected); Human Metapneumovirus PCR Not Detected (NotDetected); Influenza A PCR Not Detected (NotDetected); Influenza B PCR Not Detected (NotDetected); Mycoplasma pneumoniae PCR Not Detected (NotDetected); Parainfluenza Virus 1 PCR Not Detected (NotDetected); Parainfluenza Virus 2 PCR Not Detected (NotDetected); Parainfluenza Virus 3 PCR Not Detected (NotDetected); Parainfluenza Virus 4 PCR Not Detected (NotDetected); Respiratory Syncytial VirusPCR Not Detected (NotDetected); Rhinovirus/Enterovirus PCR Not Detected (NotDetected)
--- NOTE | 2024-05-06 12:54 | Electrocardiogram Report ---
Test Reason : Blood Pressure : */* mmHG Vent. Rate : 75 BPM Atrial Rate : 75 BPM P-R Int : 160 ms QRS Dur : 88 ms QT Int : 414 ms P-R-T Axes : 55 40 38 degrees QTcB Int : 462 ms Normal sinus rhythm Possible Left atrial enlargement Poor R-wave progression: anterior OK vs. lead placement vs. LVH Nonspecific T wave abnormality Abnormal ECG When compared with ECG of 01-Apr-2024 17:12, No significant change was found Confirmed by Meera Hudson ([id number]) on 05/06/2024 12:54:12 PM Referred By: REFERRED SELF Confirmed By: Meera Hudson
--- NOTE | 2024-05-06 13:33 | XRay Report ---
SINGLE VIEW CHEST CLINICAL HISTORY: Dyspnea. Lung cancer. FINDINGS: 2 AP, portable, upright chest radiographs are compared to study dated 04/07/2024 and correla osmar with chest CT dated 04/01/2024. The right-sided PICC line seen previously has been removed. The he art is mildly enlarged and none atherosclerotic calcification of the thoracic aorta. The pulmonary va sculature is noncongested. Emphysema and chronic interstitial thickening is similar to previous. Agai n seen is a focus of confluent consolidation in the left midlung. This is unchanged from 04/07/2024. T here are also mild airspace opacities at the left lung base. No pleural effusion or pneumothorax is s een. The skeletal structures are osteopenic. The bony thorax appears intact. IMPRESSION: 1. Cardiomegaly and emphysema. 2. Again seen is confluent airspace consolidation in the left mid lung, which is unchanged from 2023. Airspace opacities are again seen in the left lung base. These findings likely represent the pa tient's known lung mass with associated treatment related change/fibrosis. Clinical correlation will be required. ACT 112: Negative or not required by law. Electronically signed by: Onesimo Silvestre M.D. 05/06/2024 1:31 PM
[2024-05-06] MEDS: FUROSEMIDE 40 MG/4 ML VIAL IV ONE (13:55)
[2024-05-06] MEDS: methylPREDNISolone 125 MG/2 ML VIAL IV STA (13:55)
--- NOTE | 2024-05-06 14:32 | History & Physical Report ---
Date of Service May 06, 2024 Assessment & Plan (1) Hypoxia: Plan: Admit to med/tele on pulse oximetry Currently stable on 2 L nasal cannula otherwise stable and nontoxic-appearing Presented to the ED via EMS for approximately 1 week of progressive dyspnea on exertion/shortness of breath with increased frequency of her chronic smoker's cough and increased mucus production with yellow sputum Noted to be on room air to the mid 80s Chest x-ray is without signs of volume overload, patient continues to have airspace opacities in the left lower/mid lung dorantes with her known lung mass and known radiation therapy Full respiratory BioFire was negative Was given 80 mg IV Solu-Medrol, 40 mg IV Lasix, and albuterol nebulizer treatment in the ED with mild improvement in symptoms Due to her increased respiratory symptoms we will begin treatment for COPD exacerbation at this time with the following > 40 mg IV Solu-Medrol 3 times daily > 500 mg IV azithromycin now, continue to 250 mg IV every 24 hours tomorrow > Incentive spirometry, flutter therapy, 4 times daily DuoNeb > BIDr budesonide and formoterol nebs > Q12H guaifenesin > As needed O2 to keep SpO2 between 89-92% Will try and obtain sputum culture with Gram stain Will obtain Pro-Harry, ESR, and CRP for further evaluation Will obtain CTA of the chest with PE protocol to rule out possible PE with patient's active cancer despite continued use of Eliquis due to hypoxia and sig ns of progressive heart failure Will also obtain TTE Home Eliquis for DVT prophylaxis for now, if she is found to have acute PEs will adjust regimen Heart healthy/DM type II diet with 2 g sodium and 1800 mL fluid restriction AM CBC, CMP, mag, PT/INR (2) Bilateral leg edema: Plan: Patient noted to have significant bilateral lower extremity edema on exam Notes she has been having increased dyspnea on exertion and bilateral lower extremity swelling for the past 2 weeks BNP significantly elevated today at 1100, up from 291 as of October of this year Workup thus far appears consistent with right-sided heart failure as she is without signs of congestive failure on chest x-ray along Will obtain CTA of the chest, TTE If any signs of PE on CTA of the chest will get bilateral venous Dopplers Status post 40 mg IV Lasix in the ED, will hold repeat IV diuretics until we see TTE results due to history of aortic stenosis to prevent hypotension Order placed to elevate bilateral lower extremities every shift (3) Elevated troponin: Plan: Initial high-sensitivity troponin elevated at 38, down to 31 and 2-hour repeat No acute ST segment or T wave changes on EKG, patient denies chest pain Likely due to demand ischemia from known coronary artery disease high suspicion for progression of right-sided heart failure Continue monitor on telemetry and follow TTE ordered at the time of admission (4) Coronary artery disease: Plan: Continue statin and ranolazine Continue Imdur (5) Paroxysmal atrial fibrillation: Plan: Currently normal sinus rhythm Continue Eliquis, metoprolol, episodes of substernal chest pain (6) Cancer related pain: Plan: Continue patient's current 40 mg oxycodone every 12 hours changes Continue home Percocet for pain equal to greater than 6 (7) 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 On arrival to the ED she has noted to be hypoxic on room air at 87%, hypertensive at 171/110, but otherwise stable. Labs were significant for VBG within normal limits, initial high-sensitivity troponin of 36 with 2-hour repeat down to 31, BNP of 1129 (up from 291 as of 10/22/2023), UA with trace leukocyte esterase otherwise unremarkable, and full respiratory BioFire negative. Chest x-ray was read as cardiomegaly and emphysema without signs of pleural effusion, pulmonary vascular congestion, or pneumothorax. Again seen is confluent airspace consolidation in the left midlung, which is unchanged from 04/07/2024. Airspace opacities are again seen in the left lung base. These findings likely resent the patient's known lung mass with associated treatment related change/fibrosis. Clinical correlation will be required. ECG showed normal sinus rhythm possible left atrial enlargement without acute ST segment or T wave changes compared to previous. Prior to admission the patient was given 80 mg IV methylprednisolone, 40 mg IV Lasix, and an albuterol nebulizing treatment. After initial treatment in the ED the patient had ambulatory pulse oximetry trial and desaturated back into the mid 80s on room air. Patient was sitting in bed in no acute distress at time of exam. States that over the past 1 to 2 weeks she has had significant increase dyspnea on exertion, bilateral lower extremity swelling. Notes increased cough frequency with yellow sputum production compared to her chronic smoker's cough. No recent fever or chills, chest pain, abdominal pain, nausea/vomiting, dysuria/hematuria, diarrhea, or recent falls. When asked, states that she has not missed doses of her Eliquis. She is still smoking approximately 1/2 packs of cigarettes daily and knows that she needs to stop completely. States that she is continue to follow with [facility], unsure of her current maintenance therapy. When asked about diet, she does state that she likes salty foods and tries to drink "lots of water" daily. When asked, she states that she is no longer requiring for cancer related pain and is back on 40 mg p.o. extended release oxycodone with as needed Percocet. Did not have her a.m. medications due to arriving to the hospital states she took all of her evening meds last night. Confirms she is a full code and would want her to make medical decisions for her if she cannot make herself. Please for Dr. Allen's attestation for any changes to the treatment plan Allergies Allergy/AdvReac Type Severity Reaction Status Date / Time latex Allergy Intermediate skin Verified 04/28/24 11:39 itching Influenza Virus Vaccines AdvReac Severe developed Verified 04/28/24 11:39 blood clots vaccine adjuvant system, AdvReac Severe blood clots Verified 04/28/24 11:39 [id number] liposomal [From Shingrix (PF)] varicella-zoster virus AdvReac Severe blood clots Verified 04/28/24 11:39 glycoprotein E, recombinant [From Shingrix (PF)] zolpidem [From Ambien] AdvReac Severe Hallucinati Verified 04/28/24 11:39 ng Home Medications Medication Instructions Recorded Confirmed Type levothyroxine 50 mcg tablet 50 mcg PO QAM 01/09/20 05/06/24 History (Synthroid) nitroglycerin 0.4 mg sublingual 0.4 mg sublingual Q5M PRN chest 01/14/23 05/06/24 Rx tablet pain #30 tabs levocetirizine 5 mg tablet (Xyzal) 5 mg PO DAILY PRN allergies 05/26/23 05/06/24 History Wheeled Walker #1 ea 06/16/23 04/28/24 Rx atorvastatin 40 mg tablet 40 mg PO HS #90 tabs 07/23/23 05/06/24 Rx nicotine 1 patch transdermal DAILY 09/17/23 05/06/24 History 21mg/24hr-14mg/24hr-7mg/24hr daily transderm patches,sequentl blood-glucose meter (KiyonTouch #1 ea 10/28/23 04/28/24 Rx Ultra2 Meter) lancets 33 gauge (KiyonTouch Delica #100 ea 10/28/23 04/28/24 Rx Plus Lancet) ondansetron HCl 4 mg tablet 4 mg PO QID PRN nausea and 10/28/23 05/06/24 Rx vomiting #120 tabs Hospital Bed Homecare #1 ea 11/04/23 04/28/24 Rx olanzapine 2.5 mg tablet 2.5 mg PO UD PRN n/v 11/04/23 05/06/24 History WHEEL MOBILITY SCOOTER #1 ea 11/08/23 04/28/24 Rx Wheelchair (Manual) #1 ea 11/08/23 04/28/24 Rx transport chair #1 ea 11/10/23 04/28/24 Rx Magic Mouthwash 300 mL mouthwash 10 ml mucous membrane ACHS PRN 11/22/23 05/06/24 Rx dysphagia #300 mL pantoprazole 40 mg tablet,delayed 40 mg PO QAM #90 tabs 11/22/23 05/06/24 Rx release isosorbide mononitrate 30 mg 30 mg PO QAM #30 tabs 12/03/23 05/06/24 Rx tablet,extended release 24 hr blood sugar diagnostic (OneTouch #100 ea 12/27/23 04/28/24 Rx Ultra Test strips) prochlorperazine maleate 10 mg 10 mg PO DIRECTED PRN 12/28/23 05/06/24 History tablet NAUSEA/VOMITING metoprolol succinate 50 mg 50 mg PO DAILY #30 tabs 12/30/23 05/06/24 Rx tablet,extended release 24 hr ranolazine 500 mg tablet,extended 500 mg PO BID #60 tabs 12/30/23 05/06/24 Rx release,12 hr albuterol sulfate 90 mcg/actuation 2 puff inhalation QID PRN 02/11/24 05/06/24 Rx aerosol inhaler shortness of breath or wheezing #6.7 grams promethazine 6.25 mg-codeine 10 5 ml PO Q8H PRN cough #473 mL 02/11/24 05/06/24 Rx mg/5 mL syrup umeclidinium 62.5 mcg/actuation 1 inh inhalation DAILY #30 ea 02/11/24 05/06/24 Rx blister powder for inhalation (Incruse Ellipta) budesonide 0.5 mg/2 mL suspension 0.5 mg (2 mL) NEB BID #60 doses 02/24/24 05/06/24 Rx for nebulization formoterol fumarate 20 mcg/2 mL 20 mcg (2 mL) inhalation BIDR #60 02/28/24 05/06/24 Rx solution for nebulization doses (Perforomist) metformin 500 mg tablet 500 mg PO BID 03/01/24 05/06/24 History Emotional Support Animal #1 ea 03/31/24 04/28/24 Rx apixaban 5 mg tablet (Eliquis) 5 mg PO BID #60 tabs 04/19/24 05/06/24 Rx pregabalin 150 mg capsule (Lyrica) 150 mg PO TID #90 caps 04/24/24 05/06/24 Rx lorazepam 1 mg tablet 1 mg PO TID PRN anxiety, cancer 04/28/24 05/06/24 Rx #90 tabs oxycodone-acetaminophen 10 mg-325 1 tab PO Q4H PRN cancer related 05/02/24 05/06/24 Rx mg tablet (Percocet) breakthrough pain #180 tabs oxycodone 40 mg tablet,crush 40 mg PO BID cancer related pain 05/04/24 05/06/24 Rx resistant,extended release 12 hr #60 tabs fentanyl 50 mcg/hr transdermal 50 mcg transdermal Q72H 05/06/24 05/06/24 History patch Past Med/Surg History Problem List (Updated 05/06/24 @ 15:03 by Agustín Mckeon PA-C) Hypoxia Elevated brain natriuretic peptide (BNP) level (Acute) Non-ST elevation IN (NSTEMI) (Acute) Acute hypoxemic respiratory failure (Acute) Acute dyspnea (Acute) Bilateral leg edema (Acute) Lower extremity pain Unwitnessed fall (Acute) Aspiration pneumonia (Acute) Elevated troponin (Acute) Cancer related pain (Acute) Psychosocial problem Brain metastasis (Chronic) Hemoptysis Encounter for pain management Small cell carcinoma of lung (Acute) Anemia (Acute) Diabetes Unusual change in behavior 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 details Chest pain (Acute) Abscess of upper gum Acute bronchitis Cough Allergic rhinitis Dyspnea on exertion Routine health maintenance Trochanteric bursitis of both hips Stress bladder incontinence, female Smoker Insomnia (Chronic) HTN (hypertension), benign (Chronic) Left hip pain (Acute) Anxiety (Acute) Asthma (Chronic) Lyme disease (Chronic) Fibromyalgia (Chronic) Chronic radicular lumbar pain (Chronic) Hypothyroid (Chronic) COPD (chronic obstructive pulmonary disease) (Chronic) CVD (cardiovascular disease) (Chronic) Medical History Refusal of blood transfusions as patient is Yazidi Lung cancer metastatic to brain Paroxysmal atrial fibrillation Aortic stenosis Coronary artery disease Chronic respiratory failure Obesity Takotsubo cardiomyopathy Aneurysmal dilatation History of COVID-19 Lumbar disc herniation Peripheral neuropathy Diabetes mellitus, type 2 Hx of deep venous thrombosis Anxiety Onychomycosis Hypotension Hypertensive urgency History of TIA (transient ischemic attack) History of myocardial infarction Surgical History History of cardiac cath History of cholecystectomy History of section History of coronary artery stent placement Family History Mother Myocardial infarction Daughter Myocardial infarction Denies family history of Ovarian cancer Prostate cancer Breast cancer Colorectal cancer Social History Smoking Status: Current every day smoker Tobacco Type: Cigarettes Age Started Using Tobacco: 15; packs per day: 1; Cigarettes Per Day: half a pack; Second Hand Exposure: No; Do You Dip or Chew Tobacco: No; Hx Alcohol Use: Yes Alcohol type: beer and wine Hx Substance Use: Yes Preferred Language: Mongolian Communication Ability: Effective Visual Impairment: No Limitations Piping Supervisor Required: No Beliefs That Will Affect Care: Sabianism Sabianism Beliefs: Zoroastrian marital status: Current Living Situation: Spouse Current Living Situation Comment: and son current occupational status: disabled How many Children do You have: 6 Feels Safe at Home: Yes Childhood Exposure to Second-Hand Smoke: Yes Diet: diabetic and regular caffeine: Yes (Coffee) Dental Care, Regularly: No Physical Activity Frequency: Daily Physical Activity Frequency Comment: Daily housework/activites Seatbelt Use: always Sunscreen Use: No Assistive Devices: Walker Physical Exam Physical Exam: Physical Exam: General: In no acute distress, stated age, chronically ill-appearing but nontoxic HEENT: Normocephalic, atraumatic, no scleral icterus, pupils around round, symmetrical, and reactive to light, moist mucus membranes, +JVD, trachea midline, no thyromegaly Chest/Pulm: No respiratory distress, symmetrical chest expansion, expiratory wheezing noted throughout with rhonchi noted in the left lower lobe Cardiac: Regular rate and rhythm, 4/6 systolic murmur noted, loudest in the aortic region Abdomen: Negative for ascites and bruising, normoactive bowel sounds, soft, non-tender to palpation throughout Musculoskeletal: Symmetrical and without signs of acute trauma, upper and lower extremities with full ROM, no atrophy, spasticity, or flaccidity Extremities: Radial, dorsalis pedis, and posterior tibial pulses are intact and symmetrical, 3+ pitting edema in the bilateral upper extremities Skin: Warm, dry, no rashes , lesions, or scars noted Neuro: Alert and oriented to person, place, month, year, and president, no focal defects, no tremors noted Psych: No acute distress, calm and cooperative during the exam Results & Data Results & Data Vital Signs (Past 12 Hours) Vital Signs Temp Pulse Pulse Resp BP BP Pulse Ox 05/06/24 14:20 87 L 05/06/24 12:25 70 20 162/90 H 96 05/06/24 12:09 70 20 171/110 H 94 05/06/24 12:08 70 05/06/24 11:46 83 22 93 05/06/24 11:44 91 05/06/24 11:38 36.7 C 72 22 171/110 H 91 O2 Del Method O2 Flow Rate 05/06/24 14:20 Room Air 05/06/24 12:25 Nebulizer 05/06/24 12:09 Nasal Cannula 2 05/06/24 12:08 05/06/24 11:46 Nasal Cannula 2 05/06/24 11:44 Nasal Cannula 0 05/06/24 11:38 Room Air Laboratory Results Abnormal lab results 05/06/24 05/06/24 05/06/24 Range/Units 11:39 11:40 11:45 WBC 4.75 L (4.8-10.8) K/ul RDW Std Deviation 53.6 H (36.4-46.3) fL RDW Coeff of Chanel 16.4 H (11.5-14.5) % Lymph # (Auto) 0.20 L (1.20-3.40) K/uL [place] # (Auto) 0.10 L (0.11-0.59) K/uL ESR 55 H (0-30) mm/hr Sodium 135 L (136-145) mmol/L Glucose 125 H (70-99(Fasting)) mg/dl Troponin I High Sens 36.3 H (0-14) pg/ml B-Natriuretic Peptide 1129 H (0-100) pg/ml Ur Leukocyte Esterase Trace H (Negative) 05/06/24 Range/Units 13:40 WBC (4.8-10.8) K/ul RDW Std Deviation (36.4-46.3) fL RDW Coeff of Chanel (11.5-14.5) % Lymph # (Auto) (1.20-3.40) K/uL [place] # (Auto) (0.11-0.59) K/uL ESR (0-30) mm/hr Sodium (136-145) mmol/L Glucose (70-99(Fasting)) mg/dl Troponin I High Sens 31.0 H (0-14) pg/ml B-Natriuretic Peptide (0-100) pg/ml Ur Leukocyte Esterase (Negative) Diagnostic Findings Chest X-Ray 05/06/24 11:39 SINGLE VIEW CHEST CLINICAL HISTORY: Dyspnea. Lung cancer. FINDINGS: 2 AP, portable, upright chest radiographs are compared to study dated 04/07/2024 and correlated with chest CT dated 04/01/2024. The right-sided PICC line seen previously has been removed. The heart is mildly enlarged and none atherosclerotic calcification of the thoracic aorta. The pulmonary vasculature is noncongested. Emphysema and chronic interstitial thickening is similar to previous. Again seen is a focus of confluent consolidation in the left midlung. This is unchanged from 04/07/2024. There are also mild airspace opacities at the left lung base. No pleural effusion or pneumothorax is seen. The skeletal structures are osteopenic. The bony thorax appears intact. IMPRESSION: 1. Cardiomegaly and emphysema. 2. Again seen is confluent airspace consolidation in the left mid lung, which is unchanged from 04/07/2024. Airspace opacities are again seen in the left lung base. These findings likely represent the patient's known lung mass with associated treatment related change/fibrosis. Clinical correlation will be required. ACT 112: Negative or not required by law. Electronically signed by: Onesimo Silvestre M.D. 05/06/2024 1:31 PM ECG Additional Comments: Normal sinus rhythm Possible Left atrial enlargement Poor R-wave progression: anterior IN vs. lead placement vs. LVH Nonspecific T wave abnormality Abnormal ECG When compared with ECG of 01-Apr-2024 17:12, No significant change was found Confirmed by Meera Hudson ([id number]) on 05/06/2024 12:54:12 PM Code Status & VTE Plan Code Status Full code VTE Prophylaxis Plan VTE Prophylaxis will be ordered: Yes Supervising Physician Co-Signing Physician Notes Patient seen and examined, chart reviewed, case discussed with Agustín Mckeon PA-C and I agree with the assessment and plan as above except as otherwise noted Labs and images reviewed 64-year-old female with a past medical history of COPD, CVD, small cell lung cancer, NSTEMI presented to the ER with 1 week of oppressive dyspnea and hypoxia. She is wheezing on exam and has had increased mucus production and change in quality to a yellow color. She also has lower extremity edema and elevated BNP and mildly elevated troponin. Suspect acute on chronic COPD with superimposed acute CHF. Agree with Solu-Medrol, azithromycin, and pulmonary toilet for COPD exacerbation as above. Also agree with diuresis for volume overload as above. No chest pain, suspect elevated troponin is demand. PG Care Time/CCT Total # of Minutes Spent Total Time Spent with Patient: Total time spent is greater than 50% in coordination of care (as documented) at patient's floor/unit and/or counseling patient: Coding [place] [address] INT INP/OBS CARE 3/75MIN Patient Type Established Medical Decision Making High Complexity Diagnoses Hypoxia R09.02 Bilateral leg edema R60.0 Elevated troponin R79.89 Coronary artery disease of [place] artery of [place] heart with stable angina pectoris I25.118 Associated angina: with stable angina Coronary Disease-Associated Artery/Lesion type: [place] artery [place] vs. 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 transplanted heart: [place] heart Qualified Code(s): I25.118 - Atherosclerotic heart disease of [place] coronary artery with other forms of angina pectoris
[2024-05-06] MEDS ORDERED: GLUCOSE 40% GEL 15 GM TUBE PO PRN (15:15)
[2024-05-06] MEDS ORDERED: DEXTROSE 50% 50 ML SYRINGE IV PRN (15:15)
[2024-05-06] MEDS ORDERED: GLUCOSE 10 TAB/TUBE PO PRN (15:15)
[2024-05-06] MEDS ORDERED: GLUCAGON FOR INJ 1 MG VIAL SQ PRN (15:15)
[2024-05-06] MEDS ORDERED: CARBOHYDRATES FOR HYPOGLYCEMIA PO PRN (15:15)
[2024-05-06 15:23] LABS: C Reactive Protein 3.52 mg/dl (0-0.5)
[2024-05-06] MEDS ORDERED: NALOXONE HCL 0.4 MG/1 ML VIAL/CARP IV PRN (15:28)
[2024-05-06] MEDS: ALBUT/IPRATROP 3MG/0.5MG NEB 3 ML VIAL NEB SCH (15:48)
[2024-05-06] MEDS: OPTIRAY 320 125ml IV ONE (16:12)
[2024-05-06] MEDS: oxyCODONE/ACETAMINOPHEN 10-325 TAB PO PRN (17:08)
[2024-05-06] MEDS: AZITHROMYCIN 500 MG in DEXTROSE 5% 250 ML IV STA (17:08)
[2024-05-06] MEDS: INSULIN ASPART PER UNIT CHARGE SC SCH (17:40)
[2024-05-06] MEDS: PREGABALIN 150 MG CAP PO ONE (17:43)
[2024-05-06] MEDS: guaiFENesin 600 MG TABCR PO STA (18:23)
[2024-05-06] MEDS: METOPROLOL SUCC 50MG EXT REL TAB PO STA (18:23)
--- NOTE | 2024-05-06 19:12 | CT Scan Report ---
CT ANGIOGRAM OF THE CHEST CLINICAL HISTORY: Dyspnea. Lung cancer. COMPARISON STUDY: Chest x-ray dated 04/28/2024. Chest CT dated 04/01/2024. TECHNIQUE: Following the IV administration of 119 cc of Optiray 320, CT angiogram of the chest was pe rformed from the upper abdomen to the thoracic inlet utilizing the pulmonary embolus protocol. Images are reviewed in the axial, sagittal, and coronal planes. 3-D MIPS images are created and assessed. I V contrast was administered without complication. A dose lowering technique was utilized adhering to the principles of ALARA. The examination is degraded by motion artifact. CT DOSE: 820.86 mGy.cm FINDINGS: Thyroid: Imaged portions of the thyroid gland are normal in size and attenuation. Thoracic aorta: There is atherosclerotic calcification of the thoracic aorta, which is normal in akua carmen and demonstrates standard 3-vessel arch anatomy. No dissection is seen. Pulmonary vasculature: The pulmonary trunk is normal in caliber. There are no filling defects identif ied in the central pulmonary vessels to indicate pulmonary embolus. Note that this examination was no t protocoled for evaluation of the pulmonary arteries. Heart: The heart is mildly enlarged and without pericardial effusion. The coronary arteries are dense ly calcified. Lungs and pleural spaces: Evaluation of the lung parenchyma is degraded by motion artifact. Emphysema tous change is noted. Again seen is airspace consolidation/fibrosis throughout the left lung with arc hitecture distortion and significant volume loss. Consolidation in the perihilar left upper lobe has increased from 04/01/2024. A residual masslike opacity in the left lower lobe measures approximately 5 cm seen on image #67. There are scarlike opacities in the anterior left upper lobe. There is compens atory hyperinflation of the right lung. Scarring/atelectasis is seen at the right lung base. The righ t lung is otherwise clear. No pneumothorax is seen. There is a small left pleural effusion, which has increased in size from 04/01/2024. The trachea and central airways are clear. Mediastinum: There is no mediastinal lymphadenopathy. Christy: The left hilum is obscured. No right hilar adenopathy is seen. Axillae: There is no axillary lymphadenopathy. Upper abdomen: Partially visualized upper abdominal viscera is within normal limits. Bony thorax: The skeletal structures are osteopenic. Mild degenerative change is noted in the thoraci c spine. No lytic or blastic lesions are identified. IMPRESSION: 1. There is no evidence of pulmonary embolus in the main, lobar, or segmental pulmonary arteries. 2. Emphysema. 3. There is airspace consolidation with fibrosis, architectural distortion, and volume loss throughou t the left lung, with increasingly confluent consolidation in the perihilar left upper lobe as compar ed to 04/01/2024. This could represent aggressive treatment related change/fibrosis. A superimposed pn eumonia is not excluded and clinical correlation will be required. Underlying residual tumor cannot b e excluded. 4. The mass at the left lung base seen previously is unchanged from 04/01/2024 but decreased in size a nd confluence from earlier examinations. 5. There is a left pleural effusion. This is increased in size from 04/01/2024. 6. Additional findings as above. ACT 112: Negative or not required by law. Electronically signed by: Onesimo Silvestre M.D. 05/06/2024 7:10 PM
[2024-05-06] MEDS: BUDESONIDE 0.5 MG/2 ML VIAL (PULMICORT) NEB SCH (20:11)
[2024-05-06] MEDS: FORMOTEROL 20 MCG/2 ML VIAL NEB SCH (20:12)
[2024-05-06] MEDS: RANOLAZINE 500 MG ER TAB PO SCH (20:39)
[2024-05-06] MEDS: PREGABALIN 150 MG CAP PO SCH (20:40)
[2024-05-06] MEDS: ATORVASTATIN 40 MG TAB PO SCH (20:40)
[2024-05-06] MEDS: guaiFENesin 600 MG TABCR PO SCH (20:40)
[2024-05-06] MEDS: APIXABAN 5 MG TABLET PO SCH (20:40)
[2024-05-06] MEDS: LORazepam 1 MG TAB PO PRN (20:40)
[2024-05-06] MEDS: LANTUS PER UNIT CHARGE SQ SCH (20:42)
[2024-05-06] MEDS: methylPREDNISolone 40 MG in SYRINGE 0 ML IV SCH (20:42)
[2024-05-06] MEDS: oxyCODONE HCL 20 MG TABCR (OxyCONTIN) PO SCH (20:44)
[2024-05-06] MEDS ORDERED: methylPREDNISolone 125 MG/2 ML VIAL IV SCH (21:00)
[2024-05-07] MEDS: LEVOTHYROXINE SODIUM 50 MCG TABLET PO SCH (05:39)
[2024-05-07 07:11] LABS: Hematocrit (blood only) 38.9 % (37.0-47.0); Hemoglobin 12.1 g/dl (12.0-16.0); Mean Corpuscular Hemoglobin 27.8 pg (25.0-34.0); Mean Corpuscular Hgb Conc 31.1 g/dL (32.0-36.0); Mean Corpuscular Volume 89.4 fL (80.0-100.0); Mean Platelet Volume 10.6 fL (9.4-12.4); Platelet Count 178 K/uL (130-400); RDW Coefficient of Variation 16.4 % (11.5-14.5); RDW Standard Deviation 53.1 fL (36.4-46.3); Red Blood Count 4.35 M/uL (4.20-5.40); White Blood Count 4.67 K/ul (4.8-10.8)
[2024-05-07 07:27] LABS: Albumin Globulin Ratio 1.4 (0.9-2); Albumin Level 3.8 gm/dl (3.4-5.0); BUN Creatinine Ratio 17.1 (10-20); Bilirubin,Total 0.7 mg/dl (0.2-1.0); Calcium 9.8 mg/dl (8.6-10.3); Creatinine Clr Calc Pharmacy 92.8 ml/min; Est GFR (African American) 105.4 ml/min; Est GFR (Non-African American) 90.9 ml/min; Globulin 2.8 gm/dl (2.5-4.0); Magnesium 1.7 mg/dl (1.7-2.4); Potassium 4.1 mmol/L (3.5-5.1); Total Protein 6.6 gm/dl (6.0-8.3)
[2024-05-07 07:33] LABS: INR 1.1 (0.9-1.1); Prothrombin Time 11.4 Seconds (9.0-12.0)
[2024-05-07 07:45] LABS: Immature Granulocytes # (auto) 0.04 K/uL (0.01-0.20); Immature Granulocytes % (auto) 0.9 %; Lymphocytes # (auto) 0.27 K/uL (1.20-3.40); Lymphocytes % (auto) 5.8 %; Monocytes # (auto) 0.08 K/uL (0.11-0.59); Monocytes % (auto) 1.7 %; Neutrophils # (auto) 4.28 K/uL (1.40-6.50); Neutrophils % (auto) 91.6 %; RBC Morphology Unremarkable
[2024-05-07] MEDS: ACETAMINOPHEN 325 MG TAB PO PRN (08:39)
[2024-05-07] MEDS: PANTOprazole 40 MG TAB PO SCH (08:40)
[2024-05-07] MEDS: METOPROLOL SUCC 50MG EXT REL TAB PO SCH (08:41)
[2024-05-07] MEDS ORDERED: ALBUTEROL 0.083% NEBU SOLN 3 ML VIAL NEB PRN (08:41)
[2024-05-07] MEDS: ISOSORBIDE MONO EXTENDED REL 30 MG TABCR PO SCH (08:41)
[2024-05-07] MEDS ORDERED: PHARMACY GLYCEMIC MGMT CONSULT PRN (08:44)
[2024-05-07] MEDS: LANTUS PER UNIT CHARGE SQ ONE (11:38)
[2024-05-07] MEDS: UMECLIDINIUM BROMIDE 62.5MCG/BLISTER 7 PUFFS/INHALER INH SCH (11:39)
--- NOTE | 2024-05-07 11:39 | Hospitalist Progress Note ---
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 Patient's bio fire was negative and chest x-ray showed cardiomegaly and emphysema and she had elevated BNP and elevated troponin She was given IV Solu-Medrol, nebulizers and IV Lasix in ED with improvement in her symptoms #Acute hypoxic respiratory failure Likely combination of COPD exacerbation and CHF Continue oxygen via nasal cannula to keep saturations between 89 to 92% and wean as tolerated #Acute exacerbation of COPD #Tobacco use disorder Pro-Harry is less than 0.02 CTA did not show any evidence of PE or infiltrates Solu-Medrol 40 mg IV 3 times daily Azithromycin 500 mg daily (day 1) Continue nebulizers Continue oxygen to keep saturation between 89 to 92% and wean as tolerated Smoking cessation counseling provided Patient declined nicotine replacement patch #Acute on chronic diastolic congestive heart failure with preserved ejection fraction of 50% #Coronary artery disease #Paroxysmal atrial fibrillation #Aortic stenosis #Elevated troponin, likely type II OR in setting of demand ischemia from CHF and COPD 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 Jhonatan Andrade Telemetry monitoring shows sinus rhythm 2D echo Lasix 20 mg IV x 1 dose now Continue apixaban 5 mg p.o. twice daily for anticoagulation Continue statin Continue Toprol-XL 50 mg daily Continue Ranexa and Imdur #Type 2 diabetes mellitus Check A1c Pharmacy consulted for glycemic control #Metastatic small cell lung cancer with mets to brain Outpatient oncologist Dr. Benítez status post chemo and radiation therapy on maintenance atezolizumab Patient on chronic opiates for pain management for cancer-related pain Follow-up with oncology on discharge CODE STATUS: Discussed with patient: Wishes to be full code DVT prophylaxis: Patient on apixaban Care plan discussed with patient, nursing staff Admission and Anticipated Discharge Date Admission Date: May 06, 2024 Subjective Patient seen and examined H&P reviewed Labs reviewed Radiology reviewed She is currently sitting up in bed and states her breathing is much better today She denies any chest pain, shortness of breath, fever, chills, cough She denies any nausea, vomiting, diarrhea, abdominal pain Social history she lives at home with her family and admits to smoking Review of Systems Review of Systems: As per HPI Physical Exam Physical Exam: General: No acute distress Psych: Awake and alert HEENT: Anicteric sclera, moist oral mucosa CVS: Regular rate and rhythm, systolic murmur audible Lungs: Bilateral air entry with mild expiratory wheezing Abdomen: Soft, nontender, no rebound, no guarding Ext: Trace lower extremity edema, no calf tenderness Neuro: No focal motor deficits noted Results & Data Results & Data Vital Signs (Past 12 Hours) Vital Signs Temp Pulse Pulse Pulse Pulse Resp BP 05/07/24 08:25 36.9 C 75 18 135/78 05/07/24 07:40 70 05/07/24 07:40 05/07/24 07:18 80 18 05/07/24 04:00 36.9 C 78 18 131/69 Pulse Ox O2 Del Method O2 Flow Rate 05/07/24 08:25 90 Room Air 05/07/24 07:40 05/07/24 07:40 Nasal Cannula 2 05/07/24 07:18 90 Room Air 05/07/24 04:00 95 Nasal Cannula 2 Laboratory Results Laboratory Results - last 24 hr 05/06/24 05/06/24 05/06/24 11:39 11:40 11:45 WBC 4.75 L RBC 4.24 Hgb 12.4 Hct 38.4 MCV 90.6 MCH 29.2 MCHC 32.3 RDW Std Deviation 53.6 H RDW Coeff of Chanel 16.4 H Plt Count 168 MPV 10.5 Immature Gran % (Auto) 0.8 Neut % (Auto) 91.6 Lymph % (Auto) 4.2 [place] % (Auto) 2.1 Eos % (Auto) 1.1 Baso % (Auto) 0.2 Neut # (Auto) 4.35 Lymph # (Auto) 0.20 L [place] # (Auto) 0.10 L Eos # (Auto) 0.05 Baso # (Auto) 0.01 Immature Gran # (Auto) 0.04 RBC Morphology ESR 55 H PT 11.0 INR 1.0 VBG pH VBG pCO2 VBG pO2 VBG HCO3 VBG O2 Saturation VBG Base Excess Sodium 135 L Potassium 4.3 Chloride 100 Carbon Dioxide 30 Anion Gap 5 BUN 9 Creatinine 0.75 Est Cr Clr Drug Dosing 88.8 Est GFR ( Amer) 96.9 Est GFR (Non-Af Amer) 83.6 BUN/Creatinine Ratio 12.0 Glucose 125 H POC Glucose Osmolality 284 Calcium 9.6 Magnesium 1.8 Total Bilirubin 0.6 AST 14 ALT 10 Alkaline Phosphatase 80 Troponin I High Sens 36.3 H C-Reactive Protein 3.52 H B-Natriuretic Peptide 1129 H Total Protein 7.0 Albumin 4.1 Globulin 2.9 Albumin/Globulin Ratio 1.4 Procalcitonin < 0.02 Urine Color Yellow Urine Appearance Clear Urine pH 5.5 Ur Specific [place] 1.007 Urine Protein Negative Urine Glucose (UA) Negative Urine Ketones Negative Urine Blood Negative Urine Nitrite Negative Urine Bilirubin Negative Urine Urobilinogen Negative Ur Leukocyte Esterase Trace H Urine WBC (Auto) 0-5 Urine RBC (Auto) 0-2 U Hyaline Cast (Auto) 0-2 U Epithel Cells (Auto) 0-2 Urine Bacteria (Auto) None Seen Urine Osmolality 190 L Ur Random Sodium 39 Adenovirus (PCR) B. pertussis DNA (PCR) B.parapertussis DNA PCR C. pneumoniae DNA (PCR) Coronavirus OC43 (PCR) Coronavirus HKU1 (PCR) Coronavirus 229E (PCR) SARS-CoV-2 (PCR) Coronavirus NL63 (PCR) Human Metapneumovir PCR Influenza Type A (PCR) Influenza Type B (PCR) M. pneumoniae (PCR) Parainfluenza 1 (PCR) Parainfluenza 2 (PCR) Parainfluenza 3 (PCR) Parainfluenza 4 (PCR) RSV (PCR) Entero/Rhino (PCR) 05/06/24 05/06/24 05/06/24 11:47 12:05 13:40 WBC RBC Hgb Hct MCV MCH MCHC RDW Std Deviation RDW Coeff of Chanel Plt Count MPV Immature Gran % (Auto) Neut % (Auto) Lymph % (Auto) [place] % (Auto) Eos % (Auto) Baso % (Auto) Neut # (Auto) Lymph # (Auto) [place] # (Auto) Eos # (Auto) Baso # (Auto) Immature Gran # (Auto) RBC Morphology ESR PT INR VBG pH 7.39 VBG pCO2 49 VBG pO2 41 VBG HCO3 30 VBG O2 Saturation 70.0 VBG Base Excess 3.8 Sodium Potassium Chloride Carbon Dioxide Anion Gap BUN Creatinine Est Cr Clr Drug Dosing Est GFR ( Amer) Est GFR (Non-Af Amer) BUN/Creatinine Ratio Glucose POC Glucose Osmolality Calcium Magnesium Total Bilirubin AST ALT Alkaline Phosphatase Troponin I High Sens 31.0 H C-Reactive Protein B-Natriuretic Peptide Total Protein Albumin Globulin Albumin/Globulin Ratio Procalcitonin Urine Color Urine Appearance Urine pH Ur Specific [place] Urine Protein Urine Glucose (UA) Urine Ketones Urine Blood Urine Nitrite Urine Bilirubin Urine Urobilinogen Ur Leukocyte Esterase Urine WBC (Auto) Urine RBC (Auto) U Hyaline Cast (Auto) U Epithel Cells (Auto) Urine Bacteria (Auto) Urine Osmolality Ur Random Sodium Adenovirus (PCR) Not Detected B. pertussis DNA (PCR) Not Detected B.parapertussis DNA PCR Not Detected C. pneumoniae DNA (PCR) Not Detected Coronavirus OC43 (PCR) Not Detected Coronavirus HKU1 (PCR) Not Detected Coronavirus 229E (PCR) Not Detected SARS-CoV-2 (PCR) Not Detected Coronavirus NL63 (PCR) Not Detected Human Metapneumovir PCR Not Detected Influenza Type A (PCR) Not Detected Influenza Type B (PCR) Not Detected M. pneumoniae (PCR) Not Detected Parainfluenza 1 (PCR) Not Detected Parainfluenza 2 (PCR) Not Detected Parainfluenza 3 (PCR) Not Detected Parainfluenza 4 (PCR) Not Detected RSV (PCR) Not Detected Entero/Rhino (PCR) Not Detected 05/06/24 05/06/24 05/07/24 16:59 20:22 06:05 WBC 4.67 L RBC 4.35 Hgb 12.1 Hct 38.9 MCV 89.4 MCH 27.8 MCHC 31.1 L RDW Std Deviation 53.1 H RDW Coeff of Chanel 16.4 H Plt Count 178 MPV 10.6 Immature Gran % (Auto) 0.9 Neut % (Auto) 91.6 Lymph % (Auto) 5.8 [place] % (Auto) 1.7 Eos % (Auto) 0.0 Baso % (Auto) 0.0 Neut # (Auto) 4.28 Lymph # (Auto) 0.27 L [place] # (Auto) 0.08 L Eos # (Auto) 0.00 Baso # (Auto) 0.00 Immature Gran # (Auto) 0.04 RBC Morphology Unremarkable ESR PT 11.4 INR 1.1 VBG pH VBG pCO2 VBG pO2 VBG HCO3 VBG O2 Saturation VBG Base Excess Sodium 135 L Potassium 4.1 Chloride 97 L Carbon Dioxide 29 Anion Gap 9 BUN 12 Creatinine 0.70 Est Cr Clr Drug Dosing 92.8 Est GFR ( Amer) 105.4 Est GFR (Non-Af Amer) 90.9 BUN/Creatinine Ratio 17.1 Glucose 187 H POC Glucose 207 H 186 H Osmolality Calcium 9.8 Magnesium 1.7 Total Bilirubin 0.7 AST 9 L ALT 8 Alkaline Phosphatase 70 Troponin I High Sens C-Reactive Protein B-Natriuretic Peptide Total Protein 6.6 Albumin 3.8 Globulin 2.8 Albumin/Globulin Ratio 1.4 Procalcitonin Urine Color Urine Appearance Urine pH Ur Specific [place] Urine Protein Urine Glucose (UA) Urine Ketones Urine Blood Urine Nitrite Urine Bilirubin Urine Urobilinogen Ur Leukocyte Esterase Urine WBC (Auto) Urine RBC (Auto) U Hyaline Cast (Auto) U Epithel Cells (Auto) Urine Bacteria (Auto) Urine Osmolality Ur Random Sodium Adenovirus (PCR) B. pertussis DNA (PCR) B.parapertussis DNA PCR C. pneumoniae DNA (PCR) Coronavirus OC43 (PCR) Coronavirus HKU1 (PCR) Coronavirus 229E (PCR) SARS-CoV-2 (PCR) Coronavirus NL63 (PCR) Human Metapneumovir PCR Influenza Type A (PCR) Influenza Type B (PCR) M. pneumoniae (PCR) Parainfluenza 1 (PCR) Parainfluenza 2 (PCR) Parainfluenza 3 (PCR) Parainfluenza 4 (PCR) RSV (PCR) Entero/Rhino (PCR) 05/07/24 08:03 WBC RBC Hgb Hct MCV MCH MCHC RDW Std Deviation RDW Coeff of Chanel Plt Count MPV Immature Gran % (Auto) Neut % (Auto) Lymph % (Auto) [place] % (Auto) Eos % (Auto) Baso % (Auto) Neut # (Auto) Lymph # (Auto) [place] # (Auto) Eos # (Auto) Baso # (Auto) Immature Gran # (Auto) RBC Morphology ESR PT INR VBG pH VBG pCO2 VBG pO2 VBG HCO3 VBG O2 Saturation VBG Base Excess Sodium Potassium Chloride Carbon Dioxide Anion Gap BUN Creatinine Est Cr Clr Drug Dosing Est GFR ( Amer) Est GFR (Non-Af Amer) BUN/Creatinine Ratio Glucose POC Glucose 248 H Osmolality Calcium Magnesium Total Bilirubin AST ALT Alkaline Phosphatase Troponin I High Sens C-Reactive Protein B-Natriuretic Peptide Total Protein Albumin Globulin Albumin/Globulin Ratio Procalcitonin Urine Color Urine Appearance Urine pH Ur Specific [place] Urine Protein Urine Glucose (UA) Urine Ketones Urine Blood Urine Nitrite Urine Bilirubin Urine Urobilinogen Ur Leukocyte Esterase Urine WBC (Auto) Urine RBC (Auto) U Hyaline Cast (Auto) U Epithel Cells (Auto) Urine Bacteria (Auto) Urine Osmolality Ur Random Sodium Adenovirus (PCR) B. pertussis DNA (PCR) B.parapertussis DNA PCR C. pneumoniae DNA (PCR) Coronavirus OC43 (PCR) Coronavirus HKU1 (PCR) Coronavirus 229E (PCR) SARS-CoV-2 (PCR) Coronavirus NL63 (PCR) Human Metapneumovir PCR Influenza Type A (PCR) Influenza Type B (PCR) M. pneumoniae (PCR) Parainfluenza 1 (PCR) Parainfluenza 2 (PCR) Parainfluenza 3 (PCR) Parainfluenza 4 (PCR) RSV (PCR) Entero/Rhino (PCR) Diagnostic Findings Chest X-Ray 05/06/24 11:39 SINGLE VIEW CHEST CLINICAL HISTORY: Dyspnea. Lung cancer. FINDINGS: 2 AP, portable, upright chest radiographs are compared to study dated 04/07/2024 and correlated with chest CT dated 04/01/2024. The right-sided PICC line seen previously has been removed. The heart is mildly enlarged and none atherosclerotic calcification of the thoracic aorta. The pulmonary vasculature is noncongested. Emphysema and chronic interstitial thickening is similar to previous. Again seen is a focus of confluent consolidation in the left midlung. This is unchanged from 04/07/2024. There are also mild airspace opacities at the left lung base. No pleural effusion or pneumothorax is seen. The skeletal structures are osteopenic. The bony thorax appears intact. IMPRESSION: 1. Cardiomegaly and emphysema. 2. Again seen is confluent airspace consolidation in the left mid lung, which is unchanged from 04/07/2024. Airspace opacities are again seen in the left lung base. These findings likely represent the patient's known lung mass with associated treatment related change/fibrosis. Clinical correlation will be requi red. ACT 112: Negative or not required by law. Electronically signed by: Onesimo Silvestre M.D. 05/06/2024 1:31 PM Chest CTA 05/06/24 14:48 CT ANGIOGRAM OF THE CHEST CLINICAL HISTORY: Dyspnea. Lung cancer. COMPARISON STUDY: Chest x-ray dated 04/28/2024. Chest CT dated 04/01/2024. TECHNIQUE: Following the IV administration of 119 cc of Optiray 320, CT kali ogram of the chest was performed from the upper abdomen to the thoracic inlet utilizing the pulmonary embolus protocol. Images are reviewed in the axial, sagittal, and coronal planes. 3-D MIPS images are created and assessed. IV contrast was administered without complication. A dose lowering technique was utilized adhering to the principles of ALARA. The examination is degraded by motion artifact. CT DOSE: 820.86 mGy.cm FINDINGS: Thyroid: Imaged portions of the thyroid gland are normal in size and attenuation. Thoracic aorta: There is atherosclerotic calcification of the thoracic aorta, which is normal in caliber and demonstrates standard 3-vessel arch anatomy. No dissection is seen. Pulmonary vasculature: The pulmonary trunk is normal in caliber. There are no filling defects identified in the central pulmonary vessels to indicate pulmonary embolus. Note that this examination was not protocoled for evaluation of the pulmonary arteries. Heart: The heart is mildly enlarged and without pericardial effusion. The coronary arteries are densely calcified. Lungs and pleural spaces: Evaluation of the lung parenchyma is degraded by motion artifact. Emphysematous change is noted. Again seen is airspace consolidation/fibrosis throughout the left lung with architecture distortion and significant volume loss. Consolidation in the perihilar left upper lobe has increased from 04/01/2024. A residual masslike opacity in the left lower lobe measures approximately 5 cm seen on image #67. There are scarlike opacities in the anterior left upper lobe. There is compensatory hyperinflation of the right lung. Scarring/atelectasis is seen at the right lung base. The right lung is otherwise clear. No pneumothorax is seen. There is a small left pleural effusion, which has increased in size from 04/01/2024. The trachea and central airways are clear. Mediastinum: There is no mediastinal lymphadenopathy. Christy: The left hilum is obscured. No right hilar adenopathy is seen. Axillae: There is no axillary lymphadenopathy. Upper abdomen: Partially visualized upper abdominal viscera is within normal limits. Bony thorax: The skeletal structures are osteopenic. Mild degenerative change is noted in the thoracic spine. No lytic or blastic lesions are identified. IMPRESSION: 1. There is no evidence of pulmonary embolus in the main, lobar, or segmental pulmonary arteries. 2. Emphysema. 3. There is airspace consolidation with fibrosis, architectural distortion, and volume loss throughout the left lung, with increasingly confluent consolidation in the perihilar left upper lobe as compared to 04/01/2024. This could represent aggressive treatment related change/fibrosis. A superimposed pneumonia is not excluded and clinical correlation will be required. Underlying residual tumor cannot be excluded. 4. The mass at the left lung base seen previously is unchanged from 04/01/2024 but decreased in size and confluence from earlier examinations. 5. There is a left pleural effusion. This is increased in size from 04/01/2024. 6. Additional findings as above. ACT 112: Negative or not required by law. Electronically signed by: Onesimo Silvestre M.D. 05/06/2024 7:10 PM PG Care Time/CCT Total # of Minutes Spent Total Time Spent with Patient: Total time spent is greater than 50% in coordination of care (as documented) at patient's floor/unit and/or counseling patient: Coding Level of Care Code 86751 SUB INP/OBS CARE 3/50MIN Diagnoses Acute hypoxemic respiratory failure J96.01 COPD with acute exacerbation J44.1 Acute on chronic diastolic (congestive) heart failure I50.33 Aortic stenosis I35.0 CAD (coronary artery disease) I25.10 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
[2024-05-07] MEDS: MAGNESIUM SULFATE / D5W 1 GM/100 ML BAG IV SCH (12:10)
[2024-05-07] MEDS: FUROSEMIDE INJ 20 MG/2 ML VIAL IV ONE (12:11)
--- NOTE | 2024-05-07 15:07 | Pharmacy Report ---
Pharmacy Glycemic Short Note 2 - Date of Service May 07, 2024 - Glycemic Short BSG Results (Last 24 hours): 05/06/24 05/06/24 05/07/24 16:59 20:22 06:05 Glucose 187 H POC Glucose 207 H 186 H 05/07/24 05/07/24 08:03 12:14 Glucose POC Glucose 248 H 266 H OUTPATIENT ANTIDIABETIC REGIMEN: * metformin 500 mg PO BID (patient reports not taking) * A1c = pending (6.3% in October 2023) ASSESSMENT: * Sanjuanita is a 64 yo T2M with h/o metastatic small cell lung cancer to the brain and COPD who presented with shortness of breath and productive cough. * She was started on antibiotics and high dose IV steroids (methylprednisolone 40 mg IV q8 hours) for COPD exacerbation. * Will initiate weight based SQ basal insulin and titrate based on response. * Post prandial BSGs trending down with current Novolog parameters, however BSG remains > 200 mg/dL. Will tighten Novolog CF and CR. PLAN FOR INPATIENT GLYCEMIC CONTROL: * Hold outpatient oral diabetes medications * Basal insulin * Lantus 5 units SQ at breakfast + additional 10 units prior to lunch * Start Lantus 0-9-16 units SQ BID (9 units for BSG 140-200, 16 units for BSG > 200 mg/dL) * Bolus insulin * NovoLog per scale ACHS or Q6hrs while NPO * Goal Range: Low 110 mg/dL - High 150 mg/dL * Correction Factor: 30 mg/dL/unit * Nutritional / Prandial insulin per carb ratio of 1 unit per 10 grams CHO consumed
[2024-05-07] MEDS: PNEUMOCOCCAL VACCINE (PCV20) 20-VAL CONJ-DIP CRM/PF 0.5 ML SYR IM ONE (15:40)
[2024-05-07] MEDS: AZITHROMYCIN 500 MG in DEXTROSE 5% 250 ML IV SCH (15:46)
[2024-05-07] MEDS: POLYETHYLENE (MIRALAX) 17 GM PACK PO SCH (15:54)
[2024-05-07] MEDS: MAGNESIUM OXIDE 400 MG TAB PO SCH (20:35)
[2024-05-07] MEDS: SENNA 8.6 MG TAB PO SCH (20:36)
[2024-05-07] MEDS: LANTUS PER UNIT CHARGE SQ SCH (20:41)
[2024-05-07] MEDS: ONDANSETRON 4 MG OD TAB PO PRN (22:25)
[2024-05-07] MEDS: CALCIUM CARBONATE 500 MG CHEWABLE TAB PO PRN (23:53)
[2024-05-08] MEDS: FAMOTIDINE 40 MG TABLET PO ONE (02:31)
[2024-05-08] MEDS: BISMUTH SUBSALICYLATE SUSP PO STA ×2 (03:26→21:41)
[2024-05-08 06:09] LABS: Hematocrit (blood only) 39.9 % (37.0-47.0); Hemoglobin 12.6 g/dl (12.0-16.0); Mean Corpuscular Hemoglobin 28.3 pg (25.0-34.0); Mean Corpuscular Hgb Conc 31.6 g/dL (32.0-36.0); Mean Corpuscular Volume 89.5 fL (80.0-100.0); Mean Platelet Volume 10.4 fL (9.4-12.4); Platelet Count 220 K/uL (130-400); RDW Coefficient of Variation 16.7 % (11.5-14.5); RDW Standard Deviation 54.4 fL (36.4-46.3); Red Blood Count 4.46 M/uL (4.20-5.40); White Blood Count 7.85 K/ul (4.8-10.8)
[2024-05-08 06:27] LABS: BUN Creatinine Ratio 25.3 (10-20); Calcium 10.3 mg/dl (8.6-10.3); Creatinine Clr Calc Pharmacy 78.3 ml/min; Est GFR (African American) 85.8 ml/min; Magnesium 2.2 mg/dl (1.7-2.4)
[2024-05-08 06:28] LABS: Basophils # (auto) 0.01 K/uL (0.00-0.20); Basophils % (auto) 0.1 %; Immature Granulocytes # (auto) 0.05 K/uL (0.01-0.20); Immature Granulocytes % (auto) 0.6 %; Lymphocytes # (auto) 0.27 K/uL (1.20-3.40); Lymphocytes % (auto) 3.4 %; Monocytes # (auto) 0.16 K/uL (0.11-0.59); Neutrophils # (auto) 7.36 K/uL (1.40-6.50); Neutrophils % (auto) 93.9 %; Polychromasia 1+
[2024-05-08] MEDS: BUMETANIDE 1 MG TAB PO SCH (08:23)
[2024-05-08] MEDS: CETIRIZINE HCL 10 MG TABLET PO PRN (08:23)
[2024-05-08 08:30] LABS: Estimated Average Glucose 111 mg/dl; Hemoglobin A1C 5.5 % (4.5-5.6)
[2024-05-08] MEDS: LANTUS PER UNIT CHARGE SQ SCH (09:03)
--- NOTE | 2024-05-08 10:37 | Hospitalist Progress Note ---
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 Patient's bio fire was negative and chest x-ray showed cardiomegaly and emphysema and she had elevated BNP and elevated troponin She was given IV Solu-Medrol, nebulizers and IV Lasix in ED with improvement in her symptoms #Acute hypoxic respiratory failure Likely combination of COPD exacerbation and CHF Continue oxygen via nasal cannula to keep saturations between 89 to 92% and wean as tolerated #Acute exacerbation of COPD #Acute bronchitis #Tobacco use disorder Pro-Harry is less than 0.02 CTA did not show any evidence of PE or infiltrates Sputum cultures preliminary growing group B strep Reduce Solu-Medrol to 40 mg IV twice daily Patient is received 1 day of IV azithromycin: Switch to oral Augmentin Continue nebulizers Continue oxygen to keep saturation between 89 to 92% and wean as tolerated Smoking cessation counseling provided Patient declined nicotine replacement patch #Acute on chronic diastolic congestive heart failure with preserved ejection fraction of 50% #Coronary artery disease #Paroxysmal atrial fibrillation # Moderate aortic stenosis #Elevated troponin, likely type II [place] in setting of demand ischemia from CHF and COPD 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 Jhonatan Andrade Telemetry monitoring shows sinus rhythm Patient had 1 run of nonsustained V. tach today and she was asymptomatic 2D echo shows mild concentric left ventricular hypertrophy with EF of 55% with grade 1 diastolic dysfunction with moderate valvular aortic stenosis Patient was initially diuresed with IV Lasix and has been switched to Bumex 1 mg p.o. daily Continue apixaban 5 mg p.o. twice daily for anticoagulation Continue statin Continue Toprol-XL 50 mg daily Continue Ranexa and Imdur Keep potassium greater than 4 and magnesium greater than 2 #Type 2 diabetes mellitus A1c is 5.5 Pharmacy managing glycemic control #Metastatic small cell lung cancer with mets to brain Outpatient oncologist Dr. Benítez status post chemo and radiation therapy on maintenance atezolizumab Patient on chronic opiates for pain management for cancer-related pain Follow-up with oncology on discharge CODE STATUS: Full code DVT prophylaxis: Patient on apixaban Discharge planning likely home tomorrow if medically stable. Patient will need home O2 evaluation prior to discharge Care plan discussed with patient, nursing staff Admission and Anticipated Discharge Date Admission Date: May 06, 2024 Subjective Patient seen and examined Labs reviewed Reports feeling much better today with improvement in her cough, shortness of breath She is determined to quit smoking She denies any nausea, vomiting, diarrhea, abdominal pain Review of Systems Review of Systems: As per HPI Physical Exam Physical Exam: General: No acute distress Psych: Awake and alert HEENT: Anicteric sclera, moist oral mucosa CVS: Regular rate and rhythm, systolic murmur audible Lungs: Bilateral air entry with mild expiratory wheezing Abdomen: Soft, nontender, no rebound, no guarding Ext: lower extremity no edema, no calf tenderness Neuro: No focal motor deficits noted Results & Data Results & Data Vital Signs (Past 12 Hours) Vital Signs Temp Pulse Pulse Pulse Resp BP Pulse Ox 05/08/24 08:16 36.7 C 77 16 151/89 H 96 05/08/24 07:55 62 16 94 05/08/24 07:21 78 05/08/24 05:53 80 150/71 H 05/08/24 03:29 36.6 C 107 H 18 182/120 H 94 05/07/24 23:31 87 05/07/24 23:30 36.7 C 75 18 144/89 H 93 05/07/24 22:40 O2 Del Method O2 Flow Rate 05/08/24 08:16 Room Air 05/08/24 07:55 Nasal Cannula 3 05/08/24 07:21 05/08/24 05:53 05/08/24 03:29 Nasal Cannula 3 05/07/24 23:31 05/07/24 23:30 Room Air 05/07/24 22:40 Nasal Cannula 2 Laboratory Results Laboratory Results - last 24 hr 05/07/24 05/07/24 05/07/24 12:14 17:02 20:13 WBC RBC Hgb Hct MCV MCH MCHC RDW Std Deviation RDW Coeff of Chanel Plt Count MPV Immature Gran % (Auto) Neut % (Auto) Lymph % (Auto) [place] % (Auto) Eos % (Auto) Baso % (Auto) Neut # (Auto) Lymph # (Auto) [place] # (Auto) Eos # (Auto) Baso # (Auto) Immature Gran # (Auto) Polychromasia Sodium Potassium Chloride Carbon Dioxide Anion Gap BUN Creatinine Est Cr Clr Drug Dosing Est GFR ( Amer) Est GFR (Non-Af Amer) BUN/Creatinine Ratio Glucose POC Glucose 266 H 167 H 227 H Estimat Average Glucose Hemoglobin A1c Calcium Magnesium Vitamin B12 05/08/24 05/08/24 05:34 08:05 WBC 7.85 RBC 4.46 Hgb 12.6 Hct 39.9 MCV 89.5 MCH 28.3 MCHC 31.6 L RDW Std Deviation 54.4 H RDW Coeff of Chanel 16.7 H Plt Count 220 MPV 10.4 Immature Gran % (Auto) 0.6 Neut % (Auto) 93.9 Lymph % (Auto) 3.4 [place] % (Auto) 2.0 Eos % (Auto) 0.0 Baso % (Auto) 0.1 Neut # (Auto) 7.36 H Lymph # (Auto) 0.27 L [place] # (Auto) 0.16 Eos # (Auto) 0.00 Baso # (Auto) 0.01 Immature Gran # (Auto) 0.05 Polychromasia 1+ Sodium 136 Potassium 4.0 Chloride 98 Carbon Dioxide 29 Anion Gap 9 BUN 21 Creatinine 0.83 Est Cr Clr Drug Dosing 78.3 Est GFR ( Amer) 85.8 Est GFR (Non-Af Amer) 74.0 BUN/Creatinine Ratio 25.3 H Glucose 165 H POC Glucose 175 H Estimat Average Glucose 111 Hemoglobin A1c 5.5 Calcium 10.3 Magnesium 2.2 Vitamin B12 255 PG Care Time/CCT Total # of Minutes Spent Total Time Spent with Patient: Total time spent is greater than 50% in coordination of care (as documented) at patient's floor/unit and/or counseling patient: Coding Level of Care Code 53125 SUB INP/OBS CARE 2/35MIN Diagnoses Acute hypoxemic respiratory failure J96.01 COPD with acute exacerbation J44.1 Acute on chronic diastolic (congestive) heart failure I50.33 Aortic stenosis I35.0 CAD (coronary artery disease) I25.10 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
[2024-05-08] MEDS: CYANOCOBALAMIN 1000 MCG/ML VIAL IM SCH (10:45)
--- NOTE | 2024-05-08 11:06 | Pharmacy Report ---
Pharmacy Glycemic Short Note 2 - Date of Service May 08, 2024 - Glycemic Short BSG Results (Last 24 hours): 05/07/24 05/07/24 05/07/24 12:14 17:02 20:13 Glucose POC Glucose 266 H 167 H 227 H 05/08/24 05/08/24 05:34 08:05 Glucose 165 H POC Glucose 175 H OUTPATIENT ANTIDIABETIC REGIMEN: * metformin 500 mg PO BID (patient reports not taking) * A1c = 5.5% 05/08/24 (6.3% in October 2023) ASSESSMENT: 05/08 * Pt has received 51 units of insulin over the past 24hrs * 31 units of basal with Lantus * 20 units of bolus with NovoLog * Blood sugars at goal or just above * Will begin once daily basal dose, decrease as steroids taper down (Solu-Medrol decreased from q8h to q12h today) 05/07 * Sanjuanita is a 64 yo T2M with h/o metastatic small cell lung cancer to the brain and COPD who presented with shortness of breath and productive cough. * She was started on antibiotics and high dose IV steroids (methylprednisolone 40 mg IV q8 hours) for COPD exacerbation. * Will initiate weight based SQ basal insulin and titrate based on response. * Post prandial BSGs trending down with current Novolog parameters, however BSG remains > 200 mg/dL. Will tighten Novolog CF and CR. PLAN FOR INPATIENT GLYCEMIC CONTROL: * Hold outpatient oral diabetes medications * Basal insulin * Lantus 25 units SQ Daily * Bolus insulin * NovoLog per scale ACHS or Q6hrs while NPO * Goal Range: Low 110 mg/dL - High 140 mg/dL * Correction Factor: 30 mg/dL/unit * Nutritional / Prandial insulin per carb ratio of 1 unit per 10 grams CHO consumed
[2024-05-08] MEDS: methylPREDNISolone 40 MG in SYRINGE 0 ML IV SCH (18:11)
[2024-05-08] MEDS: AMOXICILLIN/CLAVULANATE 875 MG TAB PO ONE (18:11)
[2024-05-09 06:23] LABS: BUN Creatinine Ratio 30.7 (10-20); Calcium 9.8 mg/dl (8.6-10.3); Est GFR (African American) 79.9 ml/min; Est GFR (Non-African American) 68.9 ml/min; Magnesium 2.1 mg/dl (1.7-2.4); Potassium 3.9 mmol/L (3.5-5.1)
[2024-05-09 07:48] VITALS: TEMP 97.7
[2024-05-09] MEDS: CYANOCOBALAMIN (B-12) 500 MCG TABLET PO SCH (09:22)
[2024-05-09] MEDS: AMOXICILLIN/CLAVULANATE 875 MG TAB PO SCH (09:22)
[2024-05-09] MEDS: LANTUS PER UNIT CHARGE SQ SCH (09:30)
[2024-05-09] MEDS: POTASSIUM CHLORIDE CRTAB 20 MEQ TABCR PO STA (10:43)
[2024-05-09 12:00] VITALS: RESP 16; O2SAT 93
--- NOTE | 2024-05-09 13:34 | Discharge Summary ---
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 Patient's bio fire was negative and chest x-ray showed cardiomegaly and emphyse ma and she had elevated BNP and elevated troponin She was given IV Solu-Medrol, nebulizers and IV Lasix in ED with improvement in her symptoms #Acute hypoxic respiratory failure Likely combination of COPD exacerbation and CHF Patient is no longer hypoxic She was seen by respiratory therapy and was evaluated for home oxygen use: Patient does not need oxygen for home use at this point and she is saturating well on room air #Acute exacerbation of COPD #Acute bronchitis #Tobacco use disorder Pro-Harry is less than 0.02 CTA did not show any evidence of PE or infiltrates Sputum culture grew group B strep Chest azithromycin was stopped and she was transitioned to oral Augmentin 875 mg p.o. twice daily short course for 5 days She was initially treated with IV steroids and has been transition to oral prednisone taper Patient will continue with her home nebulizers and inhalers Smoking cessation counseling provided Outpatient follow-up with PCP #Acute on chronic diastolic congestive heart failure with preserved ejection fraction of 50% #Coronary artery disease #Paroxysmal atrial fibrillation # Moderate aortic stenosis #Elevated troponin, likely type II ME in setting of demand ischemia from CHF and COPD Outpatient [facility] counselor Dr. Jhonatan Andrade Telemetry monitoring shows sinus rhythm Patient had 1 run of nonsustained V. tach on 05/08/2024 and she was asymptomatic 2D echo shows mild concentric left ventricular hypertrophy with EF of 55% with grade 1 diastolic dysfunction with moderate valvular aortic stenosis Patient was initially diuresed with IV Lasix and has been switched to Bumex 1 mg p.o. daily Continue apixaban 5 mg p.o. twice daily for anticoagulation Continue statin Continue Toprol-XL 50 mg daily Continue Ranexa and Imdur Patient has a history of orthostatic hypotension. Orthostatic vital signs were done before discharge and her standing blood pressure was 126/77 without any dizziness or lightheadedness by the patient. Outpatient follow-up with cardiology on discharge #Type 2 diabetes mellitus A1c is 5.5 Patient to resume metformin on discharge and follow-up with PCP as outpatient for diabetes management #Metastatic small cell lung cancer with mets to brain Outpatient oncologist Dr. Benítez status post chemo and radiation therapy on maintenance atezolizumab Patient on chronic opiates for pain management for cancer-related pain Follow-up with oncology on discharge Patient seen and examined today. She is not requiring oxygen. Patient denies any chest pain or shortness of breath and is saturating well on room air. Cough is improved with improvement in sputum production. Her leg edema has resolved. She is stable for discharge home. I gone over the discharge care plan, medications and follow-up with the patient in great detail and answered all her questions. Patient verbalized understanding of instructions This discharge took greater than 30 minutes to coordinate Admission HPI Per Admitting Provider Sanjuanita is a 64-year-old female with a past medical history is significant for metastatic small cell lung cancer to the brain status post chemo and radiation therapy (on maintenance atezolizumab), cancer related pain, hypothyroidism, moderate to severe aortic stenosis, COPD, atrial fibrillation on Eliquis, DM type II who presented to [facility] ED on 05/06/2024 via EMS with complaints of increased shortness of breath, productive cough with yellow sputum. On arrival to the ED she has noted to be hypoxic on room air at 87%, hypertensive at 171/110, but otherwise stable. Labs were significant for VBG within normal limits, initial high-sensitivity troponin of 36 with 2-hour repeat down to 31, BNP of 1129 (up from 291 as of 10/22/2023), UA with trace leukocyte esterase otherwise unremarkable, and full respiratory Bi oFire negative. Chest x-ray was read as cardiomegaly and emphysema without signs of pleural effusion, pulmonary vascular congestion, or pneumothorax. Again seen is confluent airspace consolidation in the left midlung, which is unchanged from 04/07/2024. Airspace opacities are again seen in the left lung base. These findings likely resent the patient's known lung mass with associated treatment related change/fibrosis. Clinical correlation will be required. ECG showed normal sinus rhythm possible left atrial enlargement without acute ST segment or T wave changes compared to previous. Prior to admission the patient was given 80 mg IV methylprednisolone, 40 mg IV Lasix, and an albuterol nebulizing treatment. After initial treatment in the ED the patient had ambulatory pulse oximetry trial and desaturated back into the mid 80s on room air. Patient was sitting in bed in no acute distress at time of exam. States that over the past 1 to 2 weeks she has had significant increase dyspnea on exertion, bilateral lower extremity swelling. Notes increased cough frequency with yellow sputum production compared to her chronic smoker's cough. No recent fever or chills, chest pain, abdominal pain, nausea/vomiting, dysuria/hematuria, diarrhea, or recent falls. When asked, states that she has not missed doses of her Eliquis. She is still smoking approximately 1/2 packs of cigarettes daily and knows that she needs to stop completely. States that she is [facility], unsure of her current maintenance therapy. When asked about diet, she does state that she likes salty foods and tries to drink "lots of water" daily. When asked, she states that she is no longer requiring for cancer related pain and is back on 40 mg p.o. extended release oxycodone with as needed Percocet. Did not have her a.m. medications due to arriving to the hospital states she took all of her evening meds last night. Confirms she is a full code and would want her to make medical decisions for her if she cannot make herself. Please for Dr. Allen's attestation for any changes to the treatment plan Discharge Exam Lying down blood pressure 147/88 Sitting down blood pressure 134/65 Standing blood pressure 126/77 General: No acute distress Psych: Awake and alert HEENT: Anicteric sclera, moist oral mucosa CVS: Regular rate and rhythm, systolic murmur audible Lungs: Bilateral air entry with mild expiratory wheezing Abdomen: Soft, nontender, no rebound, no guarding Ext: lower extremity no edema, no calf tenderness Neuro: No focal motor deficits noted Discharge Plan Discharge Items Patient Disposition: Home - Self-Care Reason For Visit: SOB, hypoxia Discharge Diagnosis: #Acute exacerbation of COPD #Acute bronchitis #Tobacco use disorder #Acute on chronic diastolic congestive heart failure with preserved ejection fraction of 50% #Coronary artery disease #Paroxysmal atrial fibrillation # Moderate aortic stenosis #Elevated troponin, likely type II ME in setting of demand ischemia from CHF and COPD #Type 2 diabetes mellitus #Metastatic small cell lung cancer with mets to brain Activity: As commented below Activity Comment: As tolerated with assistance Non-emergency contact: Primary Care Provider Call non-emergency contact if: you have any medication questions, your symptoms worsen, your pain is not controlled and you have a fever Follow-up/Referrals: Katarina Andre MD [Primary Care Provider] - 05/15/24 11:30 am Juan Benítez MD [Physician] - Jhonatan Andrade MD [Physician] - Diet: Carb Consistent or DM2 and Heart Healthy Addtl Attending Provider Instructions: DISCHARGE INSTRUCTION TO PATIENT/FAMILY: Follow-up with your primary care provider within 1 week regarding: Posthospital discharge, medication review, medication refills and follow-up on all your medical problems, type 2 diabetes mellitus, heart failure, vitamin B12 deficiency Please take all your discharge medications, discharge information and discharge instructions to all your doctors appointments. Avoid all NSAIDs including ibuprofen, Motrin, Advil, Aleve, naproxen, meloxicam, Toradol, diclofenac Follow-up with your veterans rehabilitation counselor Dr. Andrade regarding congestive heart failure and coronary artery disease Prednisone taper instructions: Starting 05/10/2024, take 4 tabs (40 MG) daily for 2 days, then 3 tabs (30 MG) daily for 2 days, then 2 tabs (20 MG) daily for 2 days, then 1 tab (10 MG) daily for 2 days and stop Follow-up with your oncologist Dr. Bentíez as outpatient as soon as possible regarding lung cancer and CTA chest done during inpatient stay for review You have been diagnosed with congestive heart failure. You have been prescribed a diuretic Bumex 1 mg p.o. daily. Please weigh yourself daily every morning at the same time and on the same scale. If you gain more than 2 pounds in 24 hours or are feeling short of breath with increasing leg swelling then take an extra pill of Bumex 1 mg in addition to your morning dose and call your veterans rehabilitation counselor or PCP for further advice/instructions Labs through PCP in 1 week: CBC, CMP, MG, VITAMIN D Pending Studies at Discharge: No Stand-Alone Forms: My [facility] [employer], Smoking Cessation Medications and DC Order Prescriptions: New amoxicillin-pot clavulanate 875-125 mg Tablet 1 tab PO BIDM Qty: 8 0RF bumetanide 1 mg Tablet 1 mg PO QAM Qty: 30 0RF cyanocobalamin (vitamin B-12) 500 mcg Tablet 500 mcg PO QAM Qty: 30 0RF prednisone 10 mg tablet 10 mg PO DIRECTED Qty: 20 0RF Rx Instructions: see taper instructions: Starting 05/10/2024, take 4 tabs daily for 2 days, then 3 tabs daily for 2 days, then 2 tabs daily for 2 days, then 1 tab daily for 2 days and stop Continued metformin 500 mg tablet 500 mg PO BID Patient Comments: admits has not been taking (DME) Wheeled Walker Misc See Rx Instructions .Route Qty: 1 0RF Rx Instructions: w/ a seat and hand brakes atorvastatin 40 mg tablet 40 mg PO HS Qty: 90 1RF Rx Instructions: 40 mg PO at bedtime (DME) Hospital Bed Homecare Misc See Rx Instructions .Route Qty: 1 0RF Rx Instructions: As directed (DME) Wheelchair (Manual) Device See Rx Instructions .Route Qty: 1 0RF Rx Instructions: As directed (DME) WHEEL MOBILITY SCOOTER See Rx Instructions .Route .MEDSUPPLY Qty: 1 0RF Rx Instructions: As directed (DME) transport chair See Rx Instructions .Route .MEDSUPPLY Qty: 1 0RF Rx Instructions: As directed Magic Mouthwash 300 mL mouthwash 10 ml mucous membrane ACHS PRN (Reason: dysphagia) Qty: 300 3RF isosorbide mononitrate 30 mg tablet extended release 24 hr 30 mg PO QAM Qty: 30 5RF (DME) OneTouch Ultra Test Strip See Rx Instructions .Route Qty: 100 0RF Rx Instructions: As directed budesonide 0.5 mg/2 mL suspension for nebulization 0.5 mg NEB BID Qty: 60 6RF formoterol fumarate [Perforomist] 20 mcg/2 mL solution for nebulization 20 mcg inhalation BIDR Qty: 60 6RF Eliquis 5 mg tablet 5 mg PO BID Qty: 60 3RF Rx Instructions: start 10/26/23 in the evening pregabalin [Lyrica] 150 mg capsule 150 mg PO TID Qty: 90 2RF oxycodone-acetaminophen [Percocet] 10-325 mg tablet 1 tab PO Q4H PRN (Reason: cancer related breakthrough pain) Qty: 180 0RF oxycodone 40 mg tablet,oral only,ext.rel.12 hr 40 mg PO BID Qty: 60 0RF nitroglycerin 0.4 mg tablet, sublingual 0.4 mg sublingual Q5M PRN (Reason: chest pain) Qty: 30 4RF Rx Instructions: do not exceed 3 doses per episode. call 911 if ongoing chest pain. levothyroxine [Synthroid] 50 mcg tablet 50 mcg PO QAM pantoprazole 40 mg tablet,delayed release (DR/EC) 40 mg PO QAM Qty: 90 0RF ondansetron HCl 4 mg tablet 4 mg PO QID PRN (Reason: nausea and vomiting) Qty: 120 5RF (DME) blood-glucose meter [[employer] Ultra2 Meter] Misc See Rx Instructions .Route Qty: 1 0RF Rx Instructions: As directed (DME) lancets [OneTouch Delica Plus Lancet] 33 gauge misc See Rx Instructions .Route Qty: 100 0RF Rx Instructions: As directed albuterol sulfate 90 mcg/actuation HFA aerosol inhaler 2 puff inhalation QID PRN (Reason: shortness of breath or wheezing) Qty: 6.7 3RF promethazine-codeine 6.25-10 mg/5 mL syrup 5 ml PO Q8H PRN (Reason: cough) Qty: 473 0RF Incruse Ellipta 62.5 mcg/actuation blister with device 1 inh inhalation DAILY Qty: 30 6RF (DME) Emotional Support Animal See Rx Instructions .Route .MEDSUPPLY Qty: 1 0RF Rx Instructions: Patient needs this for Anxiety and overall health lorazepam 1 mg tablet 1 mg PO TID PRN (Reason: anxiety, cancer) Qty: 90 5RF levocetirizine [Xyzal] 5 mg tablet 5 mg PO DAILY PRN (Reason: allergies) nicotine 21-14-7 mg/24 hr patch, TD daily, sequential 1 patch transdermal DAILY Patient Comments: patient states not currently wearing Rx Instructions: apply 1-21 mg NICOTINE PATCH daily for 28 days; follow with 1-14 mg PATCH daily for 14 days, then 1-7mg PATCH daily for 14 days transdermal olanzapine 2.5 mg tablet 2.5 mg PO UD PRN (Reason: n/v) prochlorperazine maleate 10 mg tablet 10 mg PO DIRECTED PRN (Reason: NAUSEA/VOMITING) ranolazine 500 mg Tablet Extended Release 12 Hr 500 mg PO BID Qty: 60 4RF metoprolol succinate 50 mg tablet extended release 24 hr 50 mg PO DAILY Qty: 30 4RF fentanyl 50 mcg/hr patch 72 hour 50 mcg transdermal Q72H Discharge Orders: Discharge Order- CHF (Routine); Ordered 05/09/24 Ordered By: Raheel Ramirez Admission Data Admit Date/Time: 05/06/24 14:32 Attending Provider: Raheel Ramirez Admit Provider: Andrea Allen Primary Care Provider: Katarina Andre Other Providers: Andrea Allen Hospital Stay Data Consultations 05/06/24 14:35 ED Decision to Admit Stat Diagnostic Imagining Performed 05/06/24 14:48 CT angio chest PE protocol Stat Chest X-Ray 05/06/24 11:39 SINGLE VIEW CHEST CLINICAL HISTORY: Dyspnea. Lung cancer. FINDINGS: 2 AP, portable, upright chest radiographs are compared to study dated 04/07/2024 and correlated with chest CT dated 04/01/2024. The right-sided PICC line seen previously has been removed. The heart is mildly enlarged and none atherosclerotic calcification of the thoracic aorta. The pulmonary vasculature is noncongested. Emphysema and chronic interstitial thickening is similar to previous. Again seen is a focus of confluent consolidation in the left midlung. This is unchanged from 04/07/2024. There are also mild airspace opacities at the left lung base. No pleural effusion or pneumothorax is seen. The skeletal structures are osteopenic. The bony thorax appears intact. IMPRESSION: 1. Cardiomegaly and emphysema. 2. Again seen is confluent airspace consolidation in the left mid lung, which is unchanged from 04/07/2024. Airspace opacities are again seen in the left lung base. These findings likely represent the patient's known lung mass with associated treatment related change/fibrosis. Clinical correlation will be required. ACT 112: Negative or not required by law. Electronically signed by: Onesimo Silvestre M.D. 05/06/2024 1:31 PM Chest CTA 05/06/24 14:48 CT ANGIOGRAM OF THE CHEST CLINICAL HISTORY: Dyspnea. Lung cancer. COMPARISON STUDY: Chest x-ray dated 04/28/2024. Chest CT dated 04/01/2024. TECHNIQUE: Following the IV administration of 119 cc of Optiray 320, CT angiogram of the chest was performed from the upper abdomen to the thoracic inlet utilizing the pulmonary embolus protocol. Images are reviewed in the axial, sagittal, and coronal planes. 3-D MIPS images are created and assessed. IV contrast was administered without complication. A dose lowering technique was utilized adhering to the principles of ALARA. The examination is degraded by motion artifact. CT DOSE: 820.86 mGy.cm FINDINGS: Thyroid: Imaged portions of the thyroid gland are normal in size and attenuation. Thoracic aorta: There is atherosclerotic calcification of the thoracic aorta, which is normal in caliber and demonstrates standard 3-vessel arch anatomy. No dissection is seen. Pulmonary vasculature: The pulmonary trunk is normal in caliber. There are no filling defects identified in the central pulmonary vessels to indicate pulmonary embolus. Note that this examination was not protocoled for evaluation of the pulmonary arteries. Heart: The heart is mildly enlarged and without pericardial effusion. The coronary arteries are densely calcified. Lungs and pleural spaces: Evaluation of the lung parenchyma is degraded by motion artifact. Emphysematous change is noted. Again seen is airspace consolidation/fibrosis throughout the left lung with architecture distortion and significant volume loss. Consolidation in the perihilar left upper lobe has increased from 04/01/2024. A residual masslike opacity in the left lower lobe measures approximately 5 cm seen on image #67. There are scarlike opacities in the anterior left upper lobe. There is compensatory hyperinflation of the right lung. Scarring/atelectasis is seen at the right lung base. The right lung is otherwise clear. No pneumothorax is seen. There is a small left pleural effusion, which has increased in size from 04/01/2024. The trachea and central airways are clear. Mediastinum: There is no mediastinal lymphadenopathy. Christy: The left hilum is obscured. No right hilar adenopathy is seen. Axillae: There is no axillary lymphadenopathy. Upper abdomen: Partially visualized upper abdominal viscera is within normal limits. Bony thorax: The skeletal structures are osteopenic. Mild degenerative change is noted in the thoracic spine. No lytic or blastic lesions are identified. IMPRESSION: 1. There is no evidence of pulmonary embolus in the main, lobar, or segmental pulmonary arteries. 2. Emphysema. 3. There is airspace consolidation with fibrosis, architectural distortion, and volume loss throughout the left lung, with increasingly confluent consolidation in the perihilar left upper lobe as compared to 04/01/2024. This could represent aggressive treatment related change/fibrosis. A superimposed pneumonia is not excluded and clinical correlation will be required. Underlying residual tumor cannot be excluded. 4. The mass at the left lung base seen previously is unchanged from 04/01/2024 but decreased in size and confluence from earlier examinations. 5. There is a left pleural effusion. This is increased in size from 04/01/2024. 6. Additional findings as above. ACT 112: Negative or not required by law. Electronically signed by: Onesimo Silvestre M.D. 05/06/2024 7:10 PM 05/06/24 05/06/24 05/06/24 11:39 11:40 11:45 WBC 4.75 L RBC 4.24 Hgb 12.4 Hct 38.4 MCV 90.6 MCH 29.2 MCHC 32.3 RDW Std Deviation 53.6 H RDW Coeff of Chanel 16.4 H Plt Count 168 MPV 10.5 Immature Gran % (Auto) 0.8 Neut % (Auto) 91.6 Lymph % (Auto) 4.2 [place] % (Auto) 2.1 Eos % (Auto) 1.1 Baso % (Auto) 0.2 Neut # (Auto) 4.35 Lymph # (Auto) 0.20 L [place] # (Auto) 0.10 L Eos # (Auto) 0.05 Baso # (Auto) 0.01 Immature Gran # (Auto) 0.04 RBC Morphology Polychromasia ESR 55 H PT 11.0 INR 1.0 VBG pH VBG pCO2 VBG pO2 VBG HCO3 VBG O2 Saturation VBG Base Excess Sodium 135 L Potassium 4.3 Chloride 100 Carbon Dioxide 30 Anion Gap 5 BUN 9 Creatinine 0.75 Est Cr Clr Drug Dosing 88.8 Est GFR ( Amer) 96.9 Est GFR (Non-Af Amer) 83.6 BUN/Creatinine Ratio 12.0 Glucose 125 H POC Glucose Estimat Average Glucose Hemoglobin A1c Osmolality 284 Calcium 9.6 Magnesium 1.8 Total Bilirubin 0.6 AST 14 ALT 10 Alkaline Phosphatase 80 Troponin I High Sens 36.3 H C-Reactive Protein 3.52 H B-Natriuretic Peptide 1129 H Total Protein 7.0 Albumin 4.1 Globulin 2.9 Albumin/Globulin Ratio 1.4 Vitamin B12 Procalcitonin < 0.02 Urine Color Yellow Urine Appearance Clear Urine pH 5.5 Ur Specific [place] 1.007 Urine Protein Negative Urine Glucose (UA) Negative Urine Ketones Negative Urine Blood Negative Urine Nitrite Negative Urine Bilirubin Negative Urine Urobilinogen Negative Ur Leukocyte Esterase Trace H Urine WBC (Auto) 0-5 Urine RBC (Auto) 0-2 U Hyaline Cast (Auto) 0-2 U Epithel Cells (Auto) 0-2 Urine Bacteria (Auto) None Seen Urine Osmolality 190 L Ur Random Sodium 39 Adenovirus (PCR) B. pertussis DNA (PCR) B.parapertussis DNA PCR C. pneumoniae DNA (PCR) Coronavirus OC43 (PCR) Coronavirus HKU1 (PCR) Coronavirus 229E (PCR) SARS-CoV-2 (PCR) Coronavirus NL63 (PCR) Human Metapneumovir PCR Influenza Type A (PCR) Influenza Type B (PCR) M. pneumoniae (PCR) Parainfluenza 1 (PCR) Parainfluenza 2 (PCR) Parainfluenza 3 (PCR) Parainfluenza 4 (PCR) RSV (PCR) Entero/Rhino (PCR) 05/06/24 05/06/24 05/06/24 11:47 12:05 13:40 WBC RBC Hgb Hct MCV MCH MCHC RDW Std Deviation RDW Coeff of Chanel Plt Count MPV Immature Gran % (Auto) Neut % (Auto) Lymph % (Auto) [place] % (Auto) Eos % (Auto) Baso % (Auto) Neut # (Auto) Lymph # (Auto) [place] # (Auto) Eos # (Auto) Baso # (Auto) Immature Gran # (Auto) RBC Morphology Polychromasia ESR PT INR VBG pH 7.39 VBG pCO2 49 VBG pO2 41 VBG HCO3 30 VBG O2 Saturation 70.0 VBG Base Excess 3.8 Sodium Potassium Chloride Carbon Dioxide Anion Gap BUN Creatinine Est Cr Clr Drug Dosing Est GFR ( Amer) Est GFR (Non-Af Amer) BUN/Creatinine Ratio Glucose POC Glucose Estimat Average Glucose Hemoglobin A1c Osmolality Calcium Magnesium Total Bilirubin AST ALT Alkaline Phosphatase Troponin I High Sens 31.0 H C-Reactive Protein B-Natriuretic Peptide Total Protein Albumin Globulin Albumin/Globulin Ratio Vitamin B12 Procalcitonin Urine Color Urine Appearance Urine pH Ur Specific [place] Urine Protein Urine Glucose (UA) Urine Ketones Urine Blood Urine Nitrite Urine Bilirubin Urine Urobilinogen Ur Leukocyte Esterase Urine WBC (Auto) Urine RBC (Auto) U Hyaline Cast (Auto) U Epithel Cells (Auto) Urine Bacteria (Auto) Urine Osmolality Ur Random Sodium Adenovirus (PCR) Not Detected B. pertussis DNA (PCR) Not Detected B.parapertussis DNA PCR Not Detected C. pneumoniae DNA (PCR) Not Detected Coronavirus OC43 (PCR) Not Detected Coronavirus HKU1 (PCR) Not Detected Coronavirus 229E (PCR) Not Detected SARS-CoV-2 (PCR) Not Detected Coronavirus NL63 (PCR) Not Detected Human Metapneumovir PCR Not Detected Influenza Type A (PCR) Not Detected Influenza Type B (PCR) Not Detected M. pneumoniae (PCR) Not Detected Parainfluenza 1 (PCR) Not Detected Parainfluenza 2 (PCR) Not Detected Parainfluenza 3 (PCR) Not Detected Parainfluenza 4 (PCR) Not Detected RSV (PCR) Not Detected Entero/Rhino (PCR) Not Detected 05/06/24 05/06/24 05/07/24 16:59 20:22 06:05 WBC 4.67 L RBC 4.35 Hgb 12.1 Hct 38.9 MCV 89.4 MCH 27.8 MCHC 31.1 L RDW Std Deviation 53.1 H RDW Coeff of Chanel 16.4 H Plt Count 178 MPV 10.6 Immature Gran % (Auto) 0.9 Neut % (Auto) 91.6 Lymph % (Auto) 5.8 [place] % (Auto) 1.7 Eos % (Auto) 0.0 Baso % (Auto) 0.0 Neut # (Auto) 4.28 Lymph # (Auto) 0.27 L [place] # (Auto) 0.08 L Eos # (Auto) 0.00 Baso # (Auto) 0.00 Immature Gran # (Auto) 0.04 RBC Morphology Unremarkable Polychromasia ESR PT 11.4 INR 1.1 VBG pH VBG pCO2 VBG pO2 VBG HCO3 VBG O2 Saturation VBG Base Excess Sodium 135 L Potassium 4.1 Chloride 97 L Carbon Dioxide 29 Anion Gap 9 BUN 12 Creatinine 0.70 Est Cr Clr Drug Dosing 92.8 Est GFR ( Amer) 105.4 Est GFR (Non-Af Amer) 90.9 BUN/Creatinine Ratio 17.1 Glucose 187 H POC Glucose 207 H 186 H Estimat Average Glucose Hemoglobin A1c Osmolality Calcium 9.8 Magnesium 1.7 Total Bilirubin 0.7 AST 9 L ALT 8 Alkaline Phosphatase 70 Troponin I High Sens C-Reactive Protein B-Natriuretic Peptide Total Protein 6.6 Albumin 3.8 Globulin 2.8 Albumin/Globulin Ratio 1.4 Vitamin B12 Procalcitonin Urine Color Urine Appearance Urine pH Ur Specific [place] Urine Protein Urine Glucose (UA) Urine Ketones Urine Blood Urine Nitrite Urine Bilirubin Urine Urobilinogen Ur Leukocyte Esterase Urine WBC (Auto) Urine RBC (Auto) U Hyaline Cast (Auto) U Epithel Cells (Auto) Urine Bacteria (Auto) Urine Osmolality Ur Random Sodium Adenovirus (PCR) B. pertussis DNA (PCR) B.parapertussis DNA PCR C. pneumoniae DNA (PCR) Coronavirus OC43 (PCR) Coronavirus HKU1 (PCR) Coronavirus 229E (PCR) SARS-CoV-2 (PCR) Coronavirus NL63 (PCR) Human Metapneumovir PCR Influenza Type A (PCR) Influenza Type B (PCR) M. pneumoniae (PCR) Parainfluenza 1 (PCR) Parainfluenza 2 (PCR) Parainfluenza 3 (PCR) Parainfluenza 4 (PCR) RSV (PCR) Entero/Rhino (PCR) 05/07/24 05/07/24 05/07/24 08:03 12:14 17:02 WBC RBC Hgb Hct MCV MCH MCHC RDW Std Deviation RDW Coeff of Chanel Plt Count MPV Immature Gran % (Auto) Neut % (Auto) Lymph % (Auto) [place] % (Auto) Eos % (Auto) Baso % (Auto) Neut # (Auto) Lymph # (Auto) [place] # (Auto) Eos # (Auto) Baso # (Auto) Immature Gran # (Auto) RBC Morphology Polychromasia ESR PT INR VBG pH VBG pCO2 VBG pO2 VBG HCO3 VBG O2 Saturation VBG Base Excess Sodium Potassium Chloride Carbon Dioxide Anion Gap BUN Creatinine Est Cr Clr Drug Dosing Est GFR ( Amer) Est GFR (Non-Af Amer) BUN/Creatinine Ratio Glucose POC Glucose 248 H 266 H 167 H Estimat Average Glucose Hemoglobin A1c Osmolality Calcium Magnesium Total Bilirubin AST ALT Alkaline Phosphatase Troponin I High Sens C-Reactive Protein B-Natriuretic Peptide Total Protein Albumin Globulin Albumin/Globulin Ratio Vitamin B12 Procalcitonin Urine Color Urine Appearance Urine pH Ur Specific [place] Urine Protein Urine Glucose (UA) Urine Ketones Urine Blood Urine Nitrite Urine Bilirubin Urine Urobilinogen Ur Leukocyte Esterase Urine WBC (Auto) Urine RBC (Auto) U Hyaline Cast (Auto) U Epithel Cells (Auto) Urine Bacteria (Auto) Urine Osmolality Ur Random Sodium Adenovirus (PCR) B. pertussis DNA (PCR) B.parapertussis DNA PCR C. pneumoniae DNA (PCR) Coronavirus OC43 (PCR) Coronavirus HKU1 (PCR) Coronavirus 229E (PCR) SARS-CoV-2 (PCR) Coronavirus NL63 (PCR) Human Metapneumovir PCR Influenza Type A (PCR) Influenza Type B (PCR) M. pneumoniae (PCR) Parainfluenza 1 (PCR) Parainfluenza 2 (PCR) Parainfluenza 3 (PCR) Parainfluenza 4 (PCR) RSV (PCR) Entero/Rhino (PCR) 05/07/24 05/08/24 05/08/24 20:13 05:34 08:05 WBC 7.85 RBC 4.46 Hgb 12.6 Hct 39.9 MCV 89.5 MCH 28.3 MCHC 31.6 L RDW Std Deviation 54.4 H RDW Coeff of Chanel 16.7 H Plt Count 220 MPV 10.4 Immature Gran % (Auto) 0.6 Neut % (Auto) 93.9 Lymph % (Auto) 3.4 [place] % (Auto) 2.0 Eos % (Auto) 0.0 Baso % (Auto) 0.1 Neut # (Auto) 7.36 H Lymph # (Auto) 0.27 L [place] # (Auto) 0.16 Eos # (Auto) 0.00 Baso # (Auto) 0.01 Immature Gran # (Auto) 0.05 RBC Morphology Polychromasia 1+ ESR PT INR VBG pH VBG pCO2 VBG pO2 VBG HCO3 VBG O2 Saturation VBG Base Excess Sodium 136 Potassium 4.0 Chloride 98 Carbon Dioxide 29 Anion Gap 9 BUN 21 Creatinine 0.83 Est Cr Clr Drug Dosing 78.3 Est GFR ( Amer) 85.8 Est GFR (Non-Af Amer) 74.0 BUN/Creatinine Ratio 25.3 H Glucose 165 H POC Glucose 227 H 175 H Estimat Average Glucose 111 Hemoglobin A1c 5.5 Osmolality Calcium 10.3 Magnesium 2.2 Total Bilirubin AST ALT Alkaline Phosphatase Troponin I High Sens C-Reactive Protein B-Natriuretic Peptide Total Protein Albumin Globulin Albumin/Globulin Ratio Vitamin B12 255 Procalcitonin Urine Color Urine Appearance Urine pH Ur Specific [place] Urine Protein Urine Glucose (UA) Urine Ketones Urine Blood Urine Nitrite Urine Bilirubin Urine Urobilinogen Ur Leukocyte Esterase Urine WBC (Auto) Urine RBC (Auto) U Hyaline Cast (Auto) U Epithel Cells (Auto) Urine Bacteria (Auto) Urine Osmolality Ur Random Sodium Adenovirus (PCR) B. pertussis DNA (PCR) B.parapertussis DNA PCR C. pneumoniae DNA (PCR) Coronavirus OC43 (PCR) Coronavirus HKU1 (PCR) Coronavirus 229E (PCR) SARS-CoV-2 (PCR) Coronavirus NL63 (PCR) Human Metapneumovir PCR Influenza Type A (PCR) Influenza Type B (PCR) M. pneumoniae (PCR) Parainfluenza 1 (PCR) Parainfluenza 2 (PCR) Parainfluenza 3 (PCR) Parainfluenza 4 (PCR) RSV (PCR) Entero/Rhino (PCR) 05/08/24 05/08/24 05/08/24 12:19 17:17 20:16 WBC RBC Hgb Hct MCV MCH MCHC RDW Std Deviation RDW Coeff of [place] Plt Count MPV Immature Gran % (Auto) Neut % (Auto) Lymph % (Auto) [place] % (Auto) Eos % (Auto) Baso % (Auto) Neut # (Auto) Lymph # (Auto) [place] # (Auto) Eos # (Auto) Baso # (Auto) Immature Gran # (Auto) RBC Morphology Polychromasia ESR PT INR VBG pH VBG pCO2 VBG pO2 VBG HCO3 VBG O2 Saturation VBG Base Excess Sodium Potassium Chloride Carbon Dioxide Anion Gap BUN Creatinine Est Cr Clr Drug Dosing Est GFR ( Amer) Est GFR (Non-Af Amer) BUN/Creatinine Ratio Glucose POC Glucose 170 H 158 H 234 H Estimat Average Glucose Hemoglobin A1c Osmolality Calcium Magnesium Total Bilirubin AST ALT Alkaline Phosphatase Troponin I High Sens C-Reactive Protein B-Natriuretic Peptide Total Protein Albumin Globulin Albumin/Globulin Ratio Vitamin B12 Procalcitonin Urine Color Urine Appearance Urine pH Ur Specific [place] Urine Protein Urine Glucose (UA) Urine Ketones Urine Blood Urine Nitrite Urine Bilirubin Urine Urobilinogen Ur Leukocyte Esterase Urine WBC (Auto) Urine RBC (Auto) U Hyaline Cast (Auto) U Epithel Cells (Auto) Urine Bacteria (Auto) Urine Osmolality Ur Random Sodium Adenovirus (PCR) B. pertussis DNA (PCR) B.parapertussis DNA PCR C. pneumoniae DNA (PCR) Coronavirus OC43 (PCR) Coronavirus HKU1 (PCR) Coronavirus 229E (PCR) SARS-CoV-2 (PCR) Coronavirus NL63 (PCR) Human Metapneumovir PCR Influenza Type A (PCR) Influenza Type B (PCR) M. pneumoniae (PCR) Parainfluenza 1 (PCR) Parainfluenza 2 (PCR) Parainfluenza 3 (PCR) Parainfluenza 4 (PCR) RSV (PCR) Entero/Rhino (PCR) 05/09/24 05/09/24 05/09/24 05:22 08:11 12:07 WBC RBC Hgb Hct MCV MCH MCHC RDW Std Deviation RDW Coeff of Chanel Plt Count MPV Immature Gran % (Auto) Neut % (Auto) Lymph % (Auto) [place] % (Auto) Eos % (Auto) Baso % (Auto) Neut # (Auto) Lymph # (Auto) [place] # (Auto) Eos # (Auto) Baso # (Auto) Immature Gran # (Auto) RBC Morphology Polychromasia ESR PT INR VBG pH VBG pCO2 VBG pO2 VBG HCO3 VBG O2 Saturation VBG Base Excess Sodium 138 Potassium 3.9 Chloride 99 Carbon Dioxide 33 H Anion Gap 6 BUN 27 H Creatinine 0.88 Est Cr Clr Drug Dosing 74.0 Est GFR ( Amer) 79.9 Est GFR (Non-Af Amer) 68.9 BUN/Creatinine Ratio 30.7 H Glucose 136 H POC Glucose 133 H 151 H Estimat Average Glucose Hemoglobin A1c Osmolality Calcium 9.8 Magnesium 2.1 Total Bilirubin AST ALT Alkaline Phosphatase Troponin I High Sens C-Reactive Protein B-Natriuretic Peptide Total Protein Albumin Globulin Albumin/Globulin Ratio Vitamin B12 Procalcitonin Urine Color Urine Appearance Urine pH Ur Specific [place] Urine Protein Urine Glucose (UA) Urine Ketones Urine Blood Urine Nitrite Urine Bilirubin Urine Urobilinogen Ur Leukocyte Esterase Urine WBC (Auto) Urine RBC (Auto) U Hyaline Cast (Auto) U Epithel Cells (Auto) Urine Bacteria (Auto) Urine Osmolality Ur Random Sodium Adenovirus (PCR) B. pertussis DNA (PCR) B.parapertussis DNA PCR C. pneumoniae DNA (PCR) Coronavirus OC43 (PCR) Coronavirus HKU1 (PCR) Coronavirus 229E (PCR) SARS-CoV-2 (PCR) Coronavirus NL63 (PCR) Human Metapneumovir PCR Influenza Type A (PCR) Influenza Type B (PCR) M. pneumoniae (PCR) Parainfluenza 1 (PCR) Parainfluenza 2 (PCR) Parainfluenza 3 (PCR) Parainfluenza 4 (PCR) RSV (PCR) Entero/Rhino (PCR) Pending Results Patient Have Any Pending Studies at Discharge: No Discharge Instructions Given to Patient (Per Discharging Provider) DISCHARGE INSTRUCTION TO PATIENT/FAMILY: Follow-up with your primary care provider within 1 week regarding: Posthospital discharge, medication review, medication refills and follow-up on all your medical problems, type 2 diabetes mellitus, heart failure, vitamin B12 deficiency Please take all your discharge medications, discharge information and discharge instructions to all your doctors appointments. Avoid all NSAIDs including ibuprofen, Motrin, Advil, Aleve, naproxen, meloxicam, Toradol, diclofenac Follow-up with your [facility] counselor Dr. Andrade regarding congestive heart failure and coronary artery disease Prednisone taper instructions: Starting 05/10/2024, take 4 tabs (40 MG) daily for 2 days, then 3 tabs (30 MG) daily for 2 days, then 2 tabs (20 MG) daily for 2 days, then 1 tab (10 MG) daily for 2 days and stop Follow-up with your oncologist Dr. Benítez as outpatient as soon as possible regarding lung cancer and CTA chest done during inpatient stay for review You have been diagnosed with congestive heart failure. You have been prescribed a diuretic Bumex 1 mg p.o. daily. Please weigh yourself daily every morning at the same time and on the same scale. If you gain more than 2 pounds in 24 hours or are feeling short of breath with increasing leg swelling then take an extra pill of Bumex 1 mg in addition to your morning dose and call your veterans rehabilitation counselor or PCP for further advice/instructions Labs through PCP in 1 week: CBC, CMP, MG, VITAMIN D Total Time Total Time Spent Total Time Spent (In Minutes): 40 minutes Total Time Includes: Examination of the Patient, Discharge Planning and Medication Reconciliation Coding Level of Care Code 58632 INP/OBS DISCH >30 MIN Diagnoses Acute hypoxemic respiratory failure J96.01 COPD with acute exacerbation J44.1 Acute on chronic diastolic (congestive) heart failure I50.33 Aortic stenosis I35.0 CAD (coronary artery disease) I25.10 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
[2024-05-09] MEDS: predniSONE 20 MG TAB PO STA (14:35)
[2024-05-09 14:38] VITALS: BP 151/87; PULSE 80
== END 2024-05-09 15:19 | disposition home or self-care (01) | DRG 280 ==
LOC: ED 11:30 → INTOOBSV 14:32 → 2W 14:32 → SUATTDRO 14:32 → 2W 15:12

== ENCOUNTER 2024-06-27 06:23 | Inpatient (IN) ==
[2024-06-27] MEDS: ALBUTEROL 0.5% NEB SOLN 2.5 MG/0.5 ML VIAL NEB STA (06:44)
[2024-06-27 06:52] LABS: Basophils # (auto) 0.02 K/uL (0.00-0.20); Basophils % (auto) 0.4 %; Eosinophils # (auto) 0.05 K/uL (0.00-0.50); Hemoglobin 13.8 g/dl (12.0-16.0); Immature Granulocytes # (auto) 0.06 K/uL (0.01-0.20); Immature Granulocytes % (auto) 1.2 %; Lymphocytes # (auto) 0.69 K/uL (1.20-3.40); Lymphocytes % (auto) 13.4 %; Mean Corpuscular Hemoglobin 30.3 pg (25.0-34.0); Mean Corpuscular Hgb Conc 32.9 g/dL (32.0-36.0); Mean Corpuscular Volume 92.3 fL (80.0-100.0); Mean Platelet Volume 10.3 fL (9.4-12.4); Monocytes # (auto) 0.43 K/uL (0.11-0.59); Monocytes % (auto) 8.3 %; Neutrophils # (auto) 3.91 K/uL (1.40-6.50); Neutrophils % (auto) 75.7 %; Platelet Count 179 K/uL (130-400); RDW Standard Deviation 59.4 fL (36.4-46.3); Red Blood Count 4.55 M/uL (4.20-5.40); White Blood Count 5.16 K/ul (4.8-10.8)
--- NOTE | 2024-06-27 07:07 | Emergency Department Note ---
Impression & Plan Flash pulmonary edema, Acute decompensated heart failure, Acute on chronic heart failure with preserved ejection fraction (HFpEF), Non-ST elevation OR (NSTEMI), Elevated brain natriuretic peptide (BNP) level, COPD with acute exacerbation ED Provider Note NAME: SEAN GOLDMAN AGE: 64 SEX: F : 1960 ARRIVES VIA: Ambulance INFORMANT: Patient, ED PROVIDER(S): Grace Barros MD CHIEF COMPLAINT: Shortness of breath HPI: This is a 64-year-old female presenting for shortness of breath. Patient notes that she has had lower extremity edema for the past 3 to 4 days, actually improving. She has that she was mildly short of breath yesterday, went to sleep and then woke up suddenly with new shortness of breath. That she cannot lay flat. She otherwise has been wheezing and using her home albuterol treatments. She notes contact with people who have been sick with cold-like symptoms otherwise. She reports chronic pain from her cancer. ROS: See above HPI for pertinent positives & negatives. A total of 10 systems reviewed and were otherwise negative. PAST MEDICAL HISTORY: See Below PAST SURGICAL HISTORY: See Below FAMILY HISTORY: See Below SOCIAL HISTORY: See Below HOME MEDICATIONS: See Below ALLERGIES: See Below VITALS: See Below PHYSICAL EXAMINATION: General: Significant respiratory distress, comfortable, anxious Head: Normocephalic and atraumatic Eyes: Normal inspection, extraocular muscles intact Ear, nose, throat: Normal external exam Neck: Normal range of motion Respiratory: Wheezing at the bases, diminished throughout, significant respiratory distress, conversational dyspnea Cardiovascular: Regular rate/rhythm, no murmur GI: soft, nontender, no guarding or rebound Extremities: nontender, moves all extremities 1+ pitting edema Neuro: The patient awake and alert, appropriately conversive, no focal deficits, symmetric faces Skin: Warm, dry, and intact MEDICAL DECISION MAKING: This is a 64-year-old female presenting for shortness of breath. At this time patient is currently tripoding and appears in skewed extremis due to shortness of breath. Will do BiPAP at this time for symptomatic relief. History of cancer, CHF and COPD. Appears to be consistent with a multifactorial cause, possibly COPD at the age of at same time. -Chest x-ray as independent read by me reveals increasing pulmonary vascular congestion, stable appearance of the left lower lobe opacity -Patient has discomfort with recurrent BiPAP. Will give small dose of Ativan to help with anxiety. Otherwise we will attempt event further sedation due to her tenuous respiratory status -Otherwise patient does note chronic pain from her lung cancer she is on high doses of opiates at home, will give Dilaudid here for symptom control -Repeat VBG after 1.5 hours is essentially the same, initial is 7.2/73, repeat is 7.2/70. -Patient is still increasingly tachycardic and hypotensive, rising to heart rates of 120s and blood pressure is over 210. Consider flash pulm edema as underlying etiology. Will start high-dose nitroglycerin drip to help with work of breathing -CTA ordered for PE rule out due to her EKG showing demand ischemia with troponin elevation. No PE is noted, does show cardiomegaly with interstitial pulmonary edema, trace pleural effusion, mild airspace opacities at lung bases representing atelectasis versus pneumonitis -On nitro drip, patient's blood pressure is downtrending to the 130s. She is calmer now with heart rates in the 90s. -After about another 45 minutes on the nitro drip, ABG is now improving, 7.29/55 -Discussed care with Dr. Estrella, hospitalist for manage in the for admission differential diagnosis: COPD, CHF, NSTEMI, PE ER treatment provided: See below Independent History obtained from: Diagnostics interpreted by me: ECG: ECG independently interpreted by me with sinus rhythm with a rate of 84, normal axis, prolonged QT, significant ST segment depressions in the lateral leads, no ST segment elevations consistent with STEMI criteria Cardiac Monitoring: An order was placed for continuous cardiac monitoring. The monitor shows a rate of 85 with sinus rhythm. Laboratory studies: As stated above and show below. Imaging studies: See below. Critical Care Note: I have personally spent 120 minutes of critical care time in the direct management of this patient. This includes bedside care, interpretation of diagnostic studies, and testing, discussion with consultants, patient, and family members, and other required patient management activities. This 120 minutes is in excess of all separately billable procedures. Past Med/Surg History Problem List (Updated 06/27/24 @ 14:33 by Grace Barros MD) Hypertensive emergency Acute on chronic heart failure with preserved ejection fraction (HFpEF) (Acute) Paroxysmal atrial fibrillation Aortic stenosis mild to moderate on 05/2023 echo (DAVIS 1.0 cm2, mean PG 15 mmHg) Diabetes mellitus, type 2 Flash pulmonary edema (Acute) Acute decompensated heart failure (Acute) Thrush, oral CAD (coronary artery disease) Tobacco dependence Acute on chronic diastolic (congestive) heart failure COPD with acute exacerbation (Acute) Coronary artery disease s/p 5 stents, last in 2018 Hypoxia Elevated brain natriuretic peptide (BNP) level (Acute) Non-ST elevation OR (NSTEMI) (Acute) Acute hypoxemic respiratory failure (Acute) Acute dyspnea (Acute) Bilateral leg edema (Acute) Lower extremity pain Unwitnessed fall (Acute) Aspiration pneumonia (Acute) Elevated troponin (Acute) Cancer related pain (Acute) Psychosocial problem Brain metastasis (Chronic) Hemoptysis Encounter for pain management Small cell carcinoma of lung (Acute) Anemia (Acute) Diabetes Unusual change in behavior 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 details Chest pain (Acute) Abscess of upper gum Acute bronchitis Cough Allergic rhinitis Dyspnea on exertion Routine health maintenance Trochanteric bursitis of both hips Stress bladder incontinence, female Smoker Insomnia (Chronic) HTN (hypertension), benign (Chronic) Left hip pain (Acute) Anxiety (Acute) Asthma (Chronic) Lyme disease (Chronic) Fibromyalgia (Chronic) Chronic radicular lumbar pain (Chronic) Hypothyroid (Chronic) COPD (chronic obstructive pulmonary disease) (Chronic) CVD (cardiovascular disease) (Chronic) Medical History Refusal of blood transfusions as patient is Oriental orthodox Lung cancer metastatic to brain Chronic respiratory failure Takotsubo cardiomyopathy history of Takotsubo cardiomyopathy per [place] [facility] Aneurysmal dilatation AAA, 3.4 cm History of COVID-19 07/2023 Lumbar disc herniation Peripheral neuropathy bilateral legs Hx of deep venous thrombosis years ago Anxiety Onychomycosis Hypotension still occurring occasionally Hypertensive urgency History of TIA (transient ischemic attack) 2018, no deficits History of myocardial infarction x 5 Surgical History History of cardiac cath History of cholecystectomy History of section History of coronary artery stent placement Family History Mother Myocardial infarction Daughter Myocardial infarction Denies family history of Ovarian cancer Prostate cancer Breast cancer Colorectal cancer Social History Smoking Status: Current some day smoker Tobacco Type: Cigarettes Age Started Using Tobacco: 15; packs per day: 1; Cigarettes Per Day: half a pack; Second Hand Exposure: No; Do You Dip or Chew Tobacco: No; Hx Alcohol Use: No Hx Substance Use: No Preferred Language: Palauan Communication Ability: Effective Visual Impairment: No Limitations Tool Distributor Required: No Beliefs That Will Affect Care: L[employer]-Day L[employer]-Day Beliefs: Oriental orthodox: Refusal of Blood Transfusion marital status: Current Living Situation: Spouse and Family Current Living Situation Comment: and son current occupational status: disabled How many Children do You have: 6 Other Information That Helps Us Care for You: No Feels Safe at Home: Yes Childhood Exposure to Second-Hand Smoke: Yes Diet: diabetic and regular caffeine: Yes (Coffee) Dental Care, Regularly: No Physical Activity Frequency: Daily Physical Activity Frequency Comment: Daily housework/activites Seatbelt Use: always Sunscreen Use: No Assistive Devices: None Allergies Allergies Allergy/AdvReac Type Severity Reaction Status Date / Time latex Allergy Intermediate skin Verified 05/15/24 10:08 itching Influenza Virus Vaccines AdvReac Severe developed Verified 05/15/24 10:08 blood clots vaccine adjuvant system, AdvReac Severe blood clots Verified 05/15/24 10:08 [id number] liposomal [From Shingrix (PF)] varicella-zoster virus AdvReac Severe blood clots Verified 05/15/24 10:08 glycoprotein E, recombinant [From Shingrix (PF)] zolpidem [From Ambien] AdvReac Severe Hallucinati Verified 05/15/24 10:08 ng Home Meds Home Medications Medication Instructions Recorded Confirmed levocetirizine 5 mg tablet (Xyzal) 5 mg PO DAILY PRN allergies 05/26/23 06/27/24 nicotine 1 patch transdermal DAILY 09/17/23 06/27/24 21mg/24hr-14mg/24hr-7mg/24hr daily transderm patches,sequentl olanzapine 2.5 mg tablet 2.5 mg PO UD PRN Nausea And 11/04/23 06/27/24 Vomiting prochlorperazine maleate 10 mg 10 mg PO DIRECTED PRN 12/28/23 06/27/24 tablet NAUSEA/VOMITING metformin 500 mg tablet 0 mg PO BID 03/01/24 06/27/24 formoterol fumarate 20 mcg/2 mL 0 mcg inhalation BIDR 06/27/24 06/27/24 solution for nebulization (Perforomist) pantoprazole 40 mg tablet,delayed 0 mg PO QAM 06/27/24 06/27/24 release umeclidinium 62.5 mcg/actuation 0 inh inhalation DAILY 06/27/24 06/27/24 blister powder for inhalation (Garett Rey) Previous Rx's Medication Instructions Recorded Wheeled Walker #1 ea 06/16/23 blood-glucose meter (OneTouch #1 ea 10/28/23 Ultra2 Meter) lancets 33 gauge (OneTouch Delica #100 ea 10/28/23 Plus Lancet) Hospital Bed Homecare #1 ea 11/04/23 WHEEL MOBILITY SCOOTER #1 ea 11/08/23 Wheelchair (Manual) #1 ea 11/08/23 transport chair #1 ea 11/10/23 Magic Mouthwash 300 mL mouthwash 10 ml mucous membrane ACHS PRN 11/22/23 dysphagia #300 mL isosorbide mononitrate 30 mg 30 mg PO QAM #30 tabs 12/03/23 tablet,extended release 24 hr blood sugar diagnostic (OneTouch #100 ea 12/27/23 Ultra Test strips) metoprolol succinate 50 mg 50 mg PO DAILY #30 tabs 12/30/23 tablet,extended release 24 hr ranolazine 500 mg tablet,extended 500 mg PO BID #60 tabs 12/30/23 release,12 hr albuterol sulfate 90 mcg/actuation 2 puff inhalation QID PRN 02/11/24 aerosol inhaler shortness of breath or wheezing #6.7 grams promethazine 6.25 mg-codeine 10 5 ml PO Q8H PRN cough #473 mL 02/11/24 mg/5 mL syrup budesonide 0.5 mg/2 mL suspension 0.5 mg (2 mL) NEB BID #60 doses 02/24/24 for nebulization Emotional Support Animal #1 ea 03/31/24 apixaban 5 mg tablet (Eliquis) 5 mg PO BID #60 tabs 04/19/24 nitroglycerin 0.4 mg sublingual 0.4 mg sublingual Q5M PRN chest 05/15/24 tablet pain #30 tabs nystatin 100,000 unit/mL oral See Rx Instructions PO DAILY 10 05/15/24 suspension days #60 mL bumetanide 1 mg tablet 1 mg PO QAM #30 tabs 06/05/24 cyanocobalamin (vitamin B-12) 500 500 mcg PO QAM #30 tabs 06/05/24 mcg tablet ondansetron HCl 4 mg tablet 4 mg PO QID PRN nausea and 06/05/24 vomiting #120 tabs oxycodone-acetaminophen 10 mg-325 1 tab PO Q4H PRN cancer related 06/13/24 mg tablet (Percocet) breakthrough pain #180 tabs pregabalin 150 mg capsule (Lyrica) 150 mg PO TID #90 caps 06/15/24 lorazepam 1 mg tablet 1 mg PO TID PRN anxiety, cancer 06/21/24 #90 tabs fentanyl 50 mcg/hr transdermal 50 mcg transdermal Q72H #5 ea 06/26/24 patch Results & Data (ED) Vital Signs Vital Signs - 24 hr 06/27/24 06:28 06/27/24 06:30 06/27/24 06:34 Temperature Temperature Source Pulse Rate 95 H 103 H Pulse Rate [Apical] Pulse Rate from SpO2 Sensor Pulse Rhythm Pulse Rhythm [Apical] Pulse Strength Respiratory Rate 24 Respiratory Effort / Characteristics Spontaneous Labored Short of Breath Respiratory Depth Shallow Respiratory Pattern Regular Blood Pressure 174/147 H Blood Pressure [Left Arm] Blood Pressure Mean 160 Blood Pressure Mean [Left Arm] Blood Pressure Position Pulse Oximetry 96 Oxygen Delivery Method Nasal Cannula Oxygen Flow Rate 6 6 Fraction of Inspired Oxygen SaO2/FiO2 Ratio Sepsis Recent Fever Within 48 Hours Sepsis New/Unexplained Change in Mental Status Sepsis Action Taken by Nursing Oxygen Flow Rate - Titration Pulse Oximetry Post Tiitration 06/27/24 06:38 06/27/24 06:40 06/27/24 06:45 Temperature 36.9 C Temperature Source Oral Pulse Rate 96 H 95 H Pulse Rate [Apical] Pulse Rate from SpO2 Sensor 95 H Pulse Rhythm Regular Pulse Rhythm [Apical] Pulse Strength Normal Respiratory Rate 24 21 Respiratory Effort / Characteristics Spontaneous Labored Short of Breath Respiratory Depth Shallow Respiratory Pattern Regular Blood Pressure 178/144 H 178/144 H Blood Pressure [Left Arm] Blood Pressure Mean 155 155 Blood Pressure Mean [Left Arm] Blood Pressure Position Lying Pulse Oximetry 91 96 95 Oxygen Delivery Method Nasal Cannula Nasal Cannula Oxygen Flow Rate 0 6 6 Fraction of Inspired Oxygen SaO2/FiO2 Ratio Sepsis Recent Fever Within 48 Hours No Sepsis New/Unexplained Change in Mental Status No Sepsis Action Taken by Nursing No Action Required Oxygen Flow Rate - Titration 6 Pulse Oximetry Post Tiitration 95 06/27/24 07:14 06/27/24 07:18 06/27/24 07:31 Temperature Temperature Source Pulse Rate 115 H Pulse Rate [Apical] 114 H 121 H Pulse Rate from SpO2 Sensor Pulse Rhythm Pulse Rhythm [Apical] Pulse Strength Respiratory Rate 22 25 H 20 Respiratory Effort / Characteristics Spontaneous Labored Pursed Lip Retracting Short of Breath Tripoding Respiratory Depth Retractive Respiratory Pattern Rapid/Shallow Tachypnea Blood Pressure Blood Pressure [Left Arm] 192/131 H 202/139 H Blood Pressure Mean Blood Pressure Mean [Left Arm] 151 160 Blood Pressure Position Pulse Oximetry 100 100 100 Oxygen Delivery Method BiPAP BiPAP Oxygen Flow Rate Fraction of Inspired Oxygen 45 SaO2/FiO2 Ratio Sepsis Recent Fever Within 48 Hours Sepsis New/Unexplained Change in Mental Status Sepsis Action Taken by Nursing Oxygen Flow Rate - Titration Pulse Oximetry Post Tiitration 06/27/24 08:18 06/27/24 08:23 06/27/24 08:28 Temperature Temperature Source Pulse Rate Pulse Rate [Apical] 120 H 121 H 113 H Pulse Rate from SpO2 Sensor Pulse Rhythm Pulse Rhythm [Apical] Regular Pulse Strength Respiratory Rate 28 H 30 H 28 H Respiratory Effort / Characteristics Short of Breath Tripoding Short of Breath Tripoding Short of Breath Tripoding Respiratory Depth Respiratory Pattern Tachypnea Tachypnea Blood Pressure Blood Pressure [Left Arm] 187/117 H 187/127 H 165/118 H Blood Pressure Mean Blood Pressure Mean [Left Arm] 140 147 133 Blood Pressure Position Pulse Oximetry 96 95 93 Oxygen Delivery Method BiPAP BiPAP BiPAP Oxygen Flow Rate Fraction of Inspired Oxygen 40 40 40 SaO2/FiO2 Ratio 240 237 232 Sepsis Recent Fever Within 48 Hours Sepsis New/Unexplained Change in Mental Status Sepsis Action Taken by Nursing Oxygen Flow Rate - Titration Pulse Oximetry Post Tiitration 06/27/24 08:31 06/27/24 08:36 06/27/24 08:42 Temperature Temperature Source Pulse Rate Pulse Rate [Apical] 117 H 118 H 114 H Pulse Rate from SpO2 Sensor Pulse Rhythm Pulse Rhythm [Apical] Pulse Strength Respiratory Rate 28 H 26 H 28 H Respiratory Effort / Characteristics Short of Breath Tripoding Short of Breath Tripoding Short of Breath Respiratory Depth Respiratory Pattern Blood Pressure Blood Pressure [Left Arm] 183/138 H 148/112 H 148/112 H Blood Pressure Mean Blood Pressure Mean [Left Arm] 153 124 124 Blood Pressure Position Pulse Oximetry 93 92 91 Oxygen Delivery Method BiPAP BiPAP BiPAP Oxygen Flow Rate Fraction of Inspired Oxygen 40 40 40 SaO2/FiO2 Ratio 232 230 227 Sepsis Recent Fever Within 48 Hours Sepsis New/Unexplained Change in Mental Status Sepsis Action Taken by Nursing Oxygen Flow Rate - Titration Pulse Oximetry Post Tiitration 06/27/24 08:45 06/27/24 08:47 06/27/24 08:50 Temperature Temperature Source Pulse Rate Pulse Rate [Apical] 110 H 111 H Pulse Rate from SpO2 Sensor Pulse Rhythm Pulse Rhythm [Apical] Pulse Strength Respiratory Rate 25 H 25 H Respiratory Effort / Characteristics Short of Breath Short of Breath Respiratory Depth Respiratory Pattern Blood Pressure Blood Pressure [Left Arm] 125/98 141/114 H Blood Pressure Mean Blood Pressure Mean [Left Arm] 107 123 Blood Pressure Position Pulse Oximetry 91 91 92 Oxygen Delivery Method BiPAP BiPAP Oxygen Flow Rate 40 Fraction of Inspired Oxygen 40 40 SaO2/FiO2 Ratio 227 230 Sepsis Recent Fever Within 48 Hours Sepsis New/Unexplained Change in Mental Status Sepsis Action Taken by Nursing Oxygen Flow Rate - Titration Pulse Oximetry Post Tiitration 06/27/24 08:55 06/27/24 09:00 Temperature Temperature Source Pulse Rate Pulse Rate [Apical] 106 H 102 H Pulse Rate from SpO2 Sensor Pulse Rhythm Pulse Rhythm [Apical] Regular Pulse Strength Respiratory Rate 24 26 H Respiratory Effort / Characteristics Short of Breath Respiratory Depth Respiratory Pattern Blood Pressure Blood Pressure [Left Arm] 146/97 H 144/98 H Blood Pressure Mean Blood Pressure Mean [Left Arm] 113 113 Blood Pressure Position Pulse Oximetry 93 93 Oxygen Delivery Method BiPAP BiPAP Oxygen Flow Rate Fraction of Inspired Oxygen 40 40 SaO2/FiO2 Ratio 232 232 Sepsis Recent Fever Within 48 Hours Sepsis New/Unexplained Change in Mental Status Sepsis Action Taken by Nursing Oxygen Flow Rate - Titration Pulse Oximetry Post Tiitration Laboratory Data 06/27/24 06:30 06/27/24 06:30 Lab Results 06/27/24 06/27/24 06/27/24 Range/Units 06:30 07:41 07:45 WBC 5.16 (4.8-10.8) K/ul RBC 4.55 (4.20-5.40) M/uL Hgb 13.8 (12.0-16.0) g/dl POC Hgb (12.0-16.0) g/dl Hct 42.0 (37.0-47.0) % POC Hct (37-47) % MCV 92.3 (80.0-100.0) fL MCH 30.3 (25.0-34.0) pg MCHC 32.9 (32.0-36.0) g/dL RDW Std Deviation 59.4 H (36.4-46.3) fL RDW Coeff of Chanel 18.0 H (11.5-14.5) % Plt Count 179 (130-400) K/uL MPV 10.3 (9.4-12.4) fL Immature Gran % (Auto) 1.2 % Neut % (Auto) 75.7 % Lymph % (Auto) 13.4 % [place] % (Auto) 8.3 % Eos % (Auto) 1.0 % Baso % (Auto) 0.4 % Neut # (Auto) 3.91 (1.40-6.50) K/uL Lymph # (Auto) 0.69 L (1.20-3.40) K/uL [place] # (Auto) 0.43 (0.11-0.59) K/uL Eos # (Auto) 0.05 (0.00-0.50) K/uL Baso # (Auto) 0.02 (0.00-0.20) K/uL Immature Gran # (Auto) 0.06 (0.01-0.20) K/uL PT 11.0 (9.0-12.0) Seconds INR 1.0 (0.9-1.1) APTT 33 H (21-31) Seconds PTT Ratio 1.2 Specimen Type POC pH (7.35-7.45) POC pCO2 (35-46) mmHg POC pO2 (80-95) mmHg POC HCO3 (19-24) damon/L POC Total CO2 (24-31) mmol/L POC Base Excess (-9-1.8) damon/L POC ABG O2 Sat (90-95) % VBG pH 7.20 L (7.36-7.41) VBG pCO2 73 H (38-50) mmHg VBG pO2 52 mmHg VBG HCO3 29 mmol/L VBG O2 Saturation 76.6 % VBG Base Excess -1.7 mEq/L POC Sodium (135-144) mmol/L Sodium 134 L (136-145) mmol/L POC Potassium (3.3-5.0) mmol/L Potassium 3.7 (3.5-5.1) mmol/L Chloride 96 L (98-107) mmol/L Carbon Dioxide 29 (21-32) mmol/L Anion Gap 9 (3-11) BUN 12 (6-23) mg/dl Creatinine 0.84 (0.6-1.2) mg/dl Est Cr Clr Drug Dosing 78.1 ml/min eGFR 77.07 BUN/Creatinine Ratio 14.3 (10-20) Glucose 147 H (70-99(Fasting)) mg/dl Calcium 10.5 H (8.6-10.3) mg/dl Total Bilirubin 0.7 (0.2-1.0) mg/dl AST 12 L (13-39) U/L ALT 7 (7-52) U/L Alkaline Phosphatase 65 (34-104) U/L Troponin I High Sens 80.6 H* (0-14) pg/ml B-Natriuretic Peptide 1179 H (0-100) pg/ml Total Protein 7.5 (6.0-8.3) gm/dl Albumin 4.2 (3.4-5.0) gm/dl Globulin 3.3 (2.5-4.0) gm/dl Albumin/Globulin Ratio 1.3 (0.9-2) Procalcitonin (0-0.5) ng/ml PTH Intact 48.3 (12.0-88.0) pg/ml Adenovirus (PCR) Not Detected (NotDetected) B. pertussis DNA (PCR) Not Detected (NotDetected) B.parapertussis DNA PCR Not Detected (NotDetected) C. pneumoniae DNA (PCR) Not Detected (NotDetected) Coronavirus OC43 (PCR) Not Detected (NotDetected) Coronavirus HKU1 (PCR) Not Detected (NotDetected) Coronavirus 229E (PCR) Not Detected (NotDetected) SARS-CoV-2 (PCR) Not Detected (NotDetected) Coronavirus NL63 (PCR) Not Detected (NotDetected) Human Metapneumovir PCR Not Detected (NotDetected) Influenza Type A (PCR) Not Detected (NotDetected) Influenza Type B (PCR) Not Detected (NotDetected) M. pneumoniae (PCR) Not Detected (NotDetected) Parainfluenza 1 (PCR) Not Detected (NotDetected) Parainfluenza 2 (PCR) Not Detected (NotDetected) Parainfluenza 3 (PCR) Not Detected (NotDetected) Parainfluenza 4 (PCR) Not Detected (NotDetected) RSV (PCR) Not Detected (NotDetected) Entero/Rhino (PCR) Not Detected (NotDetected) 06/27/24 06/27/24 Range/Units 07:47 08:33 WBC (4.8-10.8) K/ul RBC (4.20-5.40) M/uL Hgb (12.0-16.0) g/dl POC Hgb 15.3 (12.0-16.0) g/dl Hct (37.0-47.0) % POC Hct 45 (37-47) % MCV (80.0-100.0) fL MCH (25.0-34.0) pg MCHC (32.0-36.0) g/dL RDW Std Deviation (36.4-46.3) fL RDW Coeff of Chanel (11.5-14.5) % Plt Count (130-400) K/uL MPV (9.4-12.4) fL Immature Gran % (Auto) % Neut % (Auto) % Lymph % (Auto) % [place] % (Auto) % Eos % (Auto) % Baso % (Auto) % Neut # (Auto) (1.40-6.50) K/uL Lymph # (Auto) (1.20-3.40) K/uL [place] # (Auto) (0.11-0.59) K/uL Eos # (Auto) (0.00-0.50) K/uL Baso # (Auto) (0.00-0.20) K/uL Immature Gran # (Auto) (0.01-0.20) K/uL PT (9.0-12.0) Seconds INR (0.9-1.1) APTT (21-31) Seconds PTT Ratio Specimen Type TUAN POC pH 7.20 L (7.35-7.45) POC pCO2 70 H (35-46) mmHg POC pO2 71 L (80-95) mmHg POC HCO3 28 H (19-24) damon/L POC Total CO2 30 (24-31) mmol/L POC Base Excess 0.0 (-9-1.8) damon/L POC ABG O2 Sat 89.0 L (90-95) % VBG pH (7.36-7.41) VBG pCO2 (38-50) mmHg VBG pO2 mmHg VBG HCO3 mmol/L VBG O2 Saturation % VBG Base Excess mEq/L POC Sodium 132 L (135-144) mmol/L Sodium (136-145) mmol/L POC Potassium 4.1 (3.3-5.0) mmol/L Potassium (3.5-5.1) mmol/L Chloride (98-107) mmol/L Carbon Dioxide (21-32) mmol/L Anion Gap (3-11) BUN (6-23) mg/dl Creatinine (0.6-1.2) mg/dl Est Cr Clr Drug Dosing ml/min eGFR BUN/Creatinine Ratio (10-20) Glucose (70-99(Fasting)) mg/dl Calcium (8.6-10.3) mg/dl Total Bilirubin (0.2-1.0) mg/dl AST (13-39) U/L ALT (7-52) U/L Alkaline Phosphatase (34-104) U/L Troponin I High Sens (0-14) pg/ml B-Natriuretic Peptide (0-100) pg/ml Total Protein (6.0-8.3) gm/dl Albumin (3.4-5.0) gm/dl Globulin (2.5-4.0) gm/dl Albumin/Globulin Ratio (0.9-2) Procalcitonin 0.05 (0-0.5) ng/ml PTH Intact (12.0-88.0) pg/ml Adenovirus (PCR) (NotDetected) B. pertussis DNA (PCR) (NotDetected) B.parapertussis DNA PCR (NotDetected) C. pneumoniae DNA (PCR) (NotDetected) Coronavirus OC43 (PCR) (NotDetected) Coronavirus HKU1 (PCR) (NotDetected) Coronavirus 229E (PCR) (NotDetected) SARS-CoV-2 (PCR) (NotDetected) Coronavirus NL63 (PCR) (NotDetected) Human Metapneumovir PCR (NotDetected) Influenza Type A (PCR) (NotDetected) Influenza Type B (PCR) (NotDetected) M. pneumoniae (PCR) (NotDetected) Parainfluenza 1 (PCR) (NotDetected) Parainfluenza 2 (PCR) (NotDetected) Parainfluenza 3 (PCR) (NotDetected) Parainfluenza 4 (PCR) (NotDetected) RSV (PCR) (NotDetected) Entero/Rhino (PCR) (NotDetected) Administered Medications Nitroglycerin/Dextrose (Nitroglycerin/D5w 100 Mcg/Ml) 250 mls @ 0 mls/hr IV .Q0M [facility]; Protocol Stop: 07/27/24 08:14 Last Titration: 06/27/24 10:43 Dose: 0 mcg/min, 0 mls/hr Documented By: Titration: 06/27/24 09:32 Dose: 15 mcg/min, 9 mls/hr Documented By: Titration: 06/27/24 09:22 Dose: 10 mcg/min, 6 mls/hr Documented By: Titration: 06/27/24 08:47 Dose: 5 mcg/min, 3 mls/hr Documented By: Titration: 06/27/24 08:25 Dose: 200 mcg/min, 120 mls/hr Documented By: Admin: 06/27/24 08:15 Dose: 5 mcg/min, 3 mls/hr Documented By: NA Co-signed By: KOBY Doxycycline Hyclate 100 mg/ (Dextrose) 100 mls @ 50 mls/hr IV Q12H TANIA Stop: 07/02/24 10:59 Last Infusion: 06/27/24 14:03 Dose: Infused Documented By: Admin: 06/27/24 11:49 Dose: 50 mls/hr Documented By: KENNEDY Heparin Sodium/Dextrose (Heparin Sodium/Dextrose) 25,000 units in 500 mls @ 18 mls/hr IV .Q24H TANIA; Protocol Stop: 07/27/24 11:44 Last Admin: 06/27/24 12:26 Dose: 900 units/hr, 18 mls/hr Documented By: KENNEDY Co-signed By: MÓNICA Insulin Aspart (Insulin Aspart Per Unit Charge) 0 units SC Q6 [facility] Stop: 07/27/24 11:29 Last Admin: 06/27/24 12:18 Dose: 1 units Documented By: KENNEDY Co-signed By: MÓNICA Ondansetron HCl (Ondansetron Inj 2 Mg/Ml 2 Ml Vial) 4 mg IV Q6H [facility] Stop: 07/27/24 09:59 Last Admin: 06/27/24 11:49 Dose: 4 mg Documented By: KENNEDY Discontinued Medications Albuterol (Albuterol 0.5% Neb Soln 2.5 Mg/0.5 Ml Vial) 2.5 mg NEB NOW STA; Protocol Stop: 06/27/24 06:39 Last Admin: 06/27/24 06:44 Dose: 2.5 mg Documented By: FLORENCE Furosemide (Furosemide 40 Mg/4 Ml Vial) 40 mg IV ONE ONE Stop: 06/27/24 07:19 Last Admin: 06/27/24 07:28 Dose: 40 mg Documented By: STEVEN Heparin Sodium/Dextrose (Heparin Iv Adult Wt-Based Low-Dose *No* Initial Bolus Protocol) 1 each IV ONE STA; Protocol Stop: 06/27/24 11:21 Last Admin: 06/27/24 12:26 Dose: 1 each Documented By: KENNEDY Hydromorphone HCl (Hydromorphone Inj 0.5 Mg/0.5 Ml Syr) 0.5 mg IV NOW STA Stop: 06/27/24 07:33 Last Admin: 06/27/24 07:34 Dose: 0.5 mg Documented By: STEVEN Insulin Aspart (Insulin Aspart Per Unit Charge) 0 units SC [facility] Stop: 07/27/24 11:29 Last Admin: 06/27/24 12:08 Dose: Not Given Documented By: KENNEDY Ioversol (Optiray 320 125ml) 80 ml IV ONCE ONE Stop: 06/27/24 08:02 Last Admin: 06/27/24 08:01 Dose: 80 ml Documented By: FRED Lorazepam (Lorazepam 2 Mg/1 Ml Vial) 0.5 mg IV NOW STA Stop: 06/27/24 07:06 Last Admin: 06/27/24 07:11 Dose: 0.5 mg Documented By: STEVEN Lorazepam (Lorazepam 2 Mg/1 Ml Vial) 0.5 mg IV NOW STA Stop: 06/27/24 07:25 Last Admin: 06/27/24 07:26 Dose: 0.5 mg Documented By: STEVEN Whitlock (Rapid Sequence Induction Bag) Confirm Administered Dose 1 each N/A .STK-MED ONE Stop: 06/27/24 07:50 Last Admin: 06/27/24 09:38 Dose: Not Given Documented By: NGHIA Whitlock (Stat Iv Infusion Titration Per Protocol) 1 each N/A NOW STA Stop: 06/27/24 08:07 Last Admin: 06/27/24 09:38 Dose: Not Given Documented By: NGHIA Whitlock (Icu Protocol For Hyperglycemia) 1 each N/A ACHS [facility] Stop: 06/29/24 11:29 Last Admin: 06/27/24 12:30 Dose: Not Given Documented By: KENNEDY Imaging Data Radiologist's Impression: Chest X-Ray 06/27/24 06:38 EXAM: XR chest 1V portable CLINICAL HISTORY: DYSPNEA WTW TECHNIQUE: X-ray of the chest, portable view. COMPARISON: CR Chest DATED 05/06/2024 FINDINGS: Left basal opacity unchanged with respect to the prior study. An increase in interstitial patterns in both lungs Normal configuration of the mediastinum. The paxton are normal in size and position. The cardiac size appears increased. The bony thorax is unremarkable. The costophrenic and cardiophrenic angles are clear. IMPRESSION: 1. An increase in interstitial patterns in both lungs. The differential consideration is an infection versus bronchitis or bronchovascular congestion. 2. Left basal opacity unchanged for the prior study. It is suggested to rule out pneumonia. CT is recommended. Electronically signed by Liliya Zazueta 06-27-2024 07:50 AM Chest CTA 06/27/24 07:20 CT angio chest PE protocol CT DOSE: 968.9 mGy.cm HISTORY: 64 years-old Female with COPD, CHF, PE< PNA. Acute shortness of breath TECHNIQUE: Multiple CTA images of the chest were obtained after the intravenous administration of 80 ml Optiray. Coronal and sagittal MIPS were obtained from the axial data set and were submitted for review. All measurements were obtained according to NASCET criteria. A dose lowering technique was utilized adhering to the principles of ALARA. COMPARISON: 05/06/2024 FINDINGS: CTA: Heart is mildly enlarged. There is no pericardial effusion. Extensive coronary artery calcifications. Atherosclerosis of the thoracic aorta without aneurysm. Respiratory motion limits the study. No pulmonary emboli are identified. CT CHEST: Unremarkable thyroid. There are a few borderline-enlarged mediastinal and hilar lymph nodes measuring up to 12 mm. A precarinal 12 mm lymph node image 148 previously measured 8 mm. 11 mm subcarinal lymph node image 141 previously measured 8 mm. A 12 mm right hilar lymph node has also increased in size. Trace right and small left pleural effusions. Respiratory motion limits the study. Progressive intralobular septal thickening is noted along with bronchial wall thickening and moderate pulmonary emphysema. Mild patchy bibasilar airspace opacities. Left perihilar fibrosis redemonstrated along with a residual 5 cm masslike consolidation within the left lower lobe on image 88 series 4 which is generally unchanged from the comparison study. Mild tracheobronchial secretions. Atrophic left kidney. No acute upper abdominal abnormality. No acute fracture. IMPRESSION: 1. No pulmonary emboli identified. 2. Cardiomegaly with interstitial pulmonary edema, trace right and small left pleural effusions. 3. Mild airspace opacities of the lung bases and subpleural lungs may represent atelectasis versus a superimposed pneumonitis. 4. Left perihilar fibrosis redemonstrated along with an unchanged masslike area of consolidation the left lower lobe measuring 5 cm. 5. Mild mediastinal and hilar lymphadenopathy has increased in size from 05/06/2024. ACT 112: Negative or not required by law. The above report was generated using voice recognition software. It may contain grammatical, syntax or spelling errors. Electronically signed by: Garret oBwles M.D. 06/27/2024 8:29 AM Discharge Plan Visit Data Chief Complaint: Shortness of Breath/Dyspnea Stated Complaint: SOB X3 HOURS, HX OF LUNG CA AND OR ED Provider: Grace Barros Discharge Problem: Flash pulmonary edema, Acute decompensated heart failure, Acute on chronic heart failure with preserved ejection fraction (HFpEF), Non-ST elevation OR (NSTEMI), Elevated brain natriuretic peptide (BNP) level, COPD with acute exacerbation Patient Disposition: Admitted As Inpatient Discharge Instructions Interventions: ED Discharge Assessment Last Done: 06/27/24 09:39
[2024-06-27 07:08] LABS: Albumin Globulin Ratio 1.3 (0.9-2); Albumin Level 4.2 gm/dl (3.4-5.0); BUN Creatinine Ratio 14.3 (10-20); Bilirubin,Total 0.7 mg/dl (0.2-1.0); Calcium 10.5 mg/dl (8.6-10.3); Creatinine Clr Calc Pharmacy 78.1 ml/min; Globulin 3.3 gm/dl (2.5-4.0); Potassium 3.7 mmol/L (3.5-5.1); Total Protein 7.5 gm/dl (6.0-8.3)
[2024-06-27] MEDS: LORazepam 2 MG/1 ML VIAL IV STA ×3 (07:11→21:36)
[2024-06-27] MEDS: FUROSEMIDE 40 MG/4 ML VIAL IV ONE (07:28)
[2024-06-27] MEDS: HYDROmorphone INJ 0.5 MG/0.5 ML SYR IV STA (07:34)
--- NOTE | 2024-06-27 07:51 | XRay Report ---
EXAM: XR chest 1V portable CLINICAL HISTORY: DYSPNEA WTW TECHNIQUE: X-ray of the chest, portable view. COMPARISON: CR Chest DATED 05/06/2024 FINDINGS: Left basal opacity unchanged with respect to the prior study. An increase in interstitial patterns in both lungs Normal configuration of the mediastinum. The paxton are normal in size and position. The cardiac size appears increased. The bony thorax is unremarkable. The costophrenic and cardiophrenic angles are clear. IMPRESSION: 1. An increase in interstitial patterns in both lungs. The differential consideration is an infection versus bronchitis or bronchovascular congestion. 2. Left basal opacity unchanged for the prior study. It is suggested to rule out pneumonia. CT is recommended. Electronically signed by Liliya Zazueta 06-27-2024 07:50 AM
[2024-06-27 07:56] LABS: Base Excess VBG -1.7 mEq/L; HCO3 VBG 29 mmol/L; Oxygen Saturation VBG 76.6 %; PCO2 VBG 73 mmHg (38-50); PO2 VBG 52 mmHg
[2024-06-27 07:57] LABS: Adenovirus PCR Not Detected (NotDetected); Bordetella parapertussis PCR Not Detected (NotDetected); Bordetella pertussis PCR Not Detected (NotDetected); Chlamydia pneumoniae PCR Not Detected (NotDetected); Coronavirus 229E PCR Not Detected (NotDetected); Coronavirus CoV-2 (COVID19)PCR Not Detected (NotDetected); Coronavirus HKU1 PCR Not Detected (NotDetected); Coronavirus NL63 PCR Not Detected (NotDetected); Coronavirus OC43PCR Not Detected (NotDetected); Human Metapneumovirus PCR Not Detected (NotDetected); Influenza A PCR Not Detected (NotDetected); Influenza B PCR Not Detected (NotDetected); Mycoplasma pneumoniae PCR Not Detected (NotDetected); Parainfluenza Virus 1 PCR Not Detected (NotDetected); Parainfluenza Virus 2 PCR Not Detected (NotDetected); Parainfluenza Virus 3 PCR Not Detected (NotDetected); Parainfluenza Virus 4 PCR Not Detected (NotDetected); Respiratory Syncytial VirusPCR Not Detected (NotDetected); Rhinovirus/Enterovirus PCR Not Detected (NotDetected)
[2024-06-27] MEDS: OPTIRAY 320 125ml IV ONE (08:01)
[2024-06-27] MEDS: NITROGLYCERIN/D5W 100MCG/ML 250 ML IV SCH (08:15)
--- NOTE | 2024-06-27 08:31 | CT Scan Report ---
CT angio chest PE protocol CT DOSE: 968.9 mGy.cm HISTORY: 64 years-old Female with COPD, CHF, PE< PNA. Acute shortness of breath TECHNIQUE: Multiple CTA images of the chest were obtained after the intravenous administration of 80 ml Optiray. Coronal and sagittal MIPS were obtained from the axial data set and were submitted for [employer]. All measurements were obtained according to NASCET criteria. A dose lowering technique was ut ilized adhering to the principles of ALARA. COMPARISON: 05/06/2024 FINDINGS: CTA: Heart is mildly enlarged. There is no pericardial effusion. Extensive coronary artery calcifications. Atherosclerosis of the thoracic aorta without aneurysm. Respiratory motion limits the study. No pulm onary emboli are identified. CT CHEST: Unremarkable thyroid. There are a few borderline-enlarged mediastinal and hilar lymph nodes measuring up to 12 mm. A precarinal 12 mm lymph node image 148 previously measured 8 mm. 11 mm subcarinal lymp h node image 141 previously measured 8 mm. A 12 mm right hilar lymph node has also increased in size. Trace right and small left pleural effusions. Respiratory motion limits the study. Progressive intral obular septal thickening is noted along with bronchial wall thickening and moderate pulmonary emphyse ma. Mild patchy bibasilar airspace opacities. Left perihilar fibrosis redemonstrated along with a res idual 5 cm masslike consolidation within the left lower lobe on image 88 series 4 which is generally unchanged from the comparison study. Mild tracheobronchial secretions. Atrophic left kidney. No acute upper abdominal abnormality. No acute fracture. IMPRESSION: 1. No pulmonary emboli identified. 2. Cardiomegaly with interstitial pulmonary edema, trace right and small left pleural effusions. 3. Mild airspace opacities of the lung bases and subpleural lungs may represent atelectasis versus a superimposed pneumonitis. 4. Left perihilar fibrosis redemonstrated along with an unchanged masslike area of consolidation the left lower lobe measuring 5 cm. 5. Mild mediastinal and hilar lymphadenopathy has increased in size from 05/06/2024. ACT 112: Negative or not required by law. The above report was generated using voice recognition software. It may contain grammatical, syntax o r spelling errors. Electronically signed by: Garret Bowles M.D. 06/27/2024 8:29 AM
--- NOTE | 2024-06-27 08:58 | Electrocardiogram Report ---
Test Reason : Blood Pressure : */* mmHG Vent. Rate : 103 BPM Atrial Rate : 103 BPM P-R Int : 152 ms QRS Dur : 106 ms QT Int : 356 ms P-R-T Axes : 69 62 241 degrees QTcB Int : 466 ms Sinus tachycardia Incomplete left bundle block Marked ST abnormality, possible inferolateral subendocardial injury Abnormal ECG When compared with ECG of 06-May-2024 11:35, ST now depressed in Inferior leads ST now depressed in Lateral leads Inverted T waves have replaced nonspecific T wave abnormality in Inferior leads Confirmed by Brian Lizama ([id number]) on 06/27/2024 8:57:37 AM Referred By: Confirmed By: Brian Lizama
[2024-06-27 09:31] LABS: iSTAT Arterial Blood Gas HCO3 28 meg/L (19-24); iSTAT Arterial Blood Gas pCO2 70 mmHg (35-46); iSTAT Arterial Blood Gas pO2 71 mmHg (80-95); iSTAT Carbon Dioxide 30 mmol/L (24-31); iSTAT Hematocrit 45 % (37-47); iSTAT Hemoglobin 15.3 g/dl (12.0-16.0); iSTAT Potassium 4.1 mmol/L (3.3-5.0); iSTAT Sample Type VEN; iSTAT Sodium 132 mmol/L (135-144)
[2024-06-27] MEDS: RAPID SEQUENCE INDUCTION BAG ONE (09:38)
[2024-06-27] MEDS: STAT IV Infusion **Titration per Protocol STA (09:38)
--- NOTE | 2024-06-27 09:40 | History & Physical Report ---
Date of Service June 27, 2024 Assessment & Plan (1) Acute decompensated heart failure: Plan: Acute on chronic HFpEF Acute onset of SOB/dyspnea that woke her from sleep around 3 AM Chest CTA without pulmonary embolism BioFire negative Patient was placed on BiPAP on ED arrival and given IV Lasix, nitro drip-without significant proven over 1.5 hours Keep n.p.o. while on BiPAP Will plan to restart p.o. medications the evening of 06/27 barring any setbacks Initial AB.20/70/71/28; trend blood gases while on BiPAP BNP elevated at 1179 Troponin 80-->706 on arrival; trend q6h to peak EKG does show new ST depressions in the inferior and lateral leads Repeat EKG ordered, pending Echocardiogram ordered, pending Cardiology consult appreciated Daily weights Strict I&O monitoring A.m. CBC, BMP, VBG Admit to ICU in case of need for intubation (2) Coronary artery disease: Plan: S/p 5 stents, with the last being in 2018, with elevated troponin and ST depressions on ECG, with heart failure exacerbation NSTEMI Start aspirin, statin, heparin drip Trend troponin Cardiology consultation Check echocardiogram May need cardiac catheterization once heart failure exacerbation improved (3) Aortic stenosis: Plan: Moderate on last echocardiogram Checking echo here Avoid overdiuresis and hypotension (4) Cancer related pain: Plan: Patient was previously on oxycodone, but switched to fentanyl patch yesterday for cancer related lower back pain due to insurance issue Hold Percocet and fentanyl patch to hypercapnia IV acetaminophen and Dilaudid as needed Plan to restart pregabalin tonight (5) Anxiety: Plan: Patient is normally on lorazepam 1 mg TID Will convert to lorazepam 0.5 mg IV q8h PRN to decrease risk of oversedation while on BiPAP (6) Paroxysmal atrial fibrillation: Plan: Hold Eliquis Transition to Heparin IV while NPO / in the event patient requires cardiac cath (7) COPD (chronic obstructive pulmonary disease): Plan: Continue home inhalers Will defer additional steroids at this time (8) Tobacco dependence: Plan: Patient reports she is a current everyday tobacco cigarette smoker; 1 PPD Nicotine patch daily (9) Diabetes mellitus, type 2: Plan: Last A1c at 5.5% on 05/08/2024 Hold metformin Loose SSI with target BSG range 120-150mg/dL, CF 50, no carb ratio Keep n.p.o. 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 while on BiPAP VTE PPx: Heparin IV History of Present Illness Chief Complaint: SOB/dyspnea Primary Care Provider: Katarina Andre MD Sanjuanita is a 64-year-old female with PMH of LLL small cell lung cancer with metastasis to the brain, COPD, CVD, hypothyroidism, HTN, NSTEMI, CAD, and coronary artery stent placement. She presented on 06/27 for acute onset of SOB that woke her from sleep around 3 AM. Patient was placed on BiPAP upon ED arrival. Patient's (Alon) is at the bedside, and most history is obtained from him at this time as patient is currently on BiPAP. He reports that she has had trouble breathing for the past couple days. SOB is both at re st and with exertion (but worse with exertion). She is unable to lie flat on her back and reports it is much worse when she lies flat. She often sits up in bed at night and leans forward to help her breathing. Patient does not use supplemental oxygen at baseline or CPAP at night. No sick contacts. Her SOB has gotten worse over the past 2 days, and she can barely walk from her living room to the kitchen without eating to sit down. reports that she has also been lightheaded whenever she walks and often says that she feels like she is going to "faint". No syncopal episodes to his knowledge. also reports she has complained of intermittent chest pain both at rest and with exertion for the past several months. At time of admission, patient reports she does not have any chest pain; she reports it is a 0/10. She does report that she is having difficulty breathing and that she feels fatigued. Patient reports she did not take any of her regular morning medications today. Per , only recent change was that her oxycodone for cancer-related back pain was stopped by insurance this week, and she was started on a fentanyl patch yesterday (patient reports that she took off her fentanyl patch last night as she was concerned that this might be related to why she had difficulty breathing). Patient is hypertensive at 193/114, tachycardic at 101 bpm, and tachypneic at 26 RPM at time of admission. ED course: BiPAP Albuterol neb Lorazepam 0.5 mg IV x 2 Hydromorphone 0.5 mg Furosemide 40 mg IV Nitroglycerin/D5w Abbreviated ROS: Patient endorses SOB both at rest and with exertion, orthopnea, lightheadedness with walking, and generalized fatigue. Patient denies fever, syncope, or chest pain at present. Allergies Allergy/AdvReac Type Severity Reaction Status Date / Time latex Allergy Intermediate skin Verified 05/15/24 10:08 itching Influenza Virus Vaccines AdvReac Severe developed Verified 05/15/24 10:08 blood clots vaccine adjuvant system, AdvReac Severe blood clots Verified 05/15/24 10:08 AS01B liposomal [From Shingrix (PF)] varicella-zoster virus AdvReac Severe blood clots Verified 05/15/24 10:08 glycoprotein E, recombinant [From Shingrix (PF)] zolpidem [From Ambien] AdvReac Severe Hallucinati Verified 05/15/24 10:08 ng Home Medications Medication Instructions Recorded Confirmed Type levocetirizine 5 mg tablet (Xyzal) 5 mg PO DAILY PRN allergies 05/26/23 06/27/24 History Wheeled Walker #1 ea 06/16/23 05/15/24 Rx nicotine 1 patch transdermal DAILY 09/17/23 06/27/24 History 21mg/24hr-14mg/24hr-7mg/24hr daily transderm patches,sequentl blood-glucose meter (OneTouch #1 ea 10/28/23 05/15/24 Rx Ultra2 Meter) lancets 33 gauge (OneTouch Delica #100 ea 10/28/23 05/15/24 Rx Plus Lancet) Hospital Bed Homecare #1 ea 11/04/23 05/15/24 Rx olanzapine 2.5 mg tablet 2.5 mg PO UD PRN Nausea And 11/04/23 06/27/24 History Vomiting WHEEL MOBILITY SCOOTER #1 ea 11/08/23 05/15/24 Rx Wheelchair (Manual) #1 ea 11/08/23 05/15/24 Rx transport chair #1 ea 11/10/23 05/15/24 Rx Magic Mouthwash 300 mL mouthwash 10 ml mucous membrane ACHS PRN 11/22/23 06/27/24 Rx dysphagia #300 mL isosorbide mononitrate 30 mg 30 mg PO QAM #30 tabs 12/03/23 06/27/24 Rx tablet,extended release 24 hr blood sugar diagnostic (OneTouch #100 ea 12/27/23 05/15/24 Rx Ultra Test strips) prochlorperazine maleate 10 mg 10 mg PO DIRECTED PRN 12/28/23 06/27/24 History tablet NAUSEA/VOMITING metoprolol succinate 50 mg 50 mg PO DAILY #30 tabs 12/30/23 06/27/24 Rx tablet,extended release 24 hr ranolazine 500 mg tablet,extended 500 mg PO BID #60 tabs 12/30/23 06/27/24 Rx release,12 hr albuterol sulfate 90 mcg/actuation 2 puff inhalation QID PRN 02/11/24 06/27/24 Rx aerosol inhaler shortness of breath or wheezing #6.7 grams promethazine 6.25 mg-codeine 10 5 ml PO Q8H PRN cough #473 mL 02/11/24 06/27/24 Rx mg/5 mL syrup budesonide 0.5 mg/2 mL suspension 0.5 mg (2 mL) NEB BID #60 doses 02/24/24 06/27/24 Rx for nebulization metformin 500 mg tablet 0 mg PO BID 03/01/24 06/27/24 History Emotional Support Animal #1 ea 03/31/24 05/15/24 Rx apixaban 5 mg tablet (Eliquis) 5 mg PO BID #60 tabs 04/19/24 06/27/24 Rx nitroglycerin 0.4 mg sublingual 0.4 mg sublingual Q5M PRN chest 05/15/24 06/27/24 Rx tablet pain #30 tabs nystatin 100,000 unit/mL oral See Rx Instructions PO DAILY 10 05/15/24 06/27/24 Rx suspension days #60 mL bumetanide 1 mg tablet 1 mg PO QAM #30 tabs 06/05/24 06/27/24 Rx cyanocobalamin (vitamin B-12) 500 500 mcg PO QAM #30 tabs 06/05/24 06/27/24 Rx mcg tablet ondansetron HCl 4 mg tablet 4 mg PO QID PRN nausea and 06/05/24 06/27/24 Rx vomiting #120 tabs oxycodone-acetaminophen 10 mg-325 1 tab PO Q4H PRN cancer related 06/13/2406/09 Rx mg tablet (Percocet) breakthrough pain #180 tabs pregabalin 150 mg capsule (Lyrica) 150 mg PO TID #90 caps 06/15/24 06/27/24 Rx lorazepam 1 mg tablet 1 mg PO TID PRN anxiety, cancer 06/21/24 06/27/24 Rx #90 tabs fentanyl 50 mcg/hr transdermal 50 mcg transdermal Q72H #5 ea 06/26/24 06/27/24 Rx patch formoterol fumarate 20 mcg/2 mL 0 mcg inhalation BIDR 06/27/24 06/27/24 History solution for nebulization (Perforomist) pantoprazole 40 mg tablet,delayed 0 mg PO QAM 06/27/24 06/27/24 History release umeclidinium 62.5 mcg/actuation 0 inh inhalation DAILY 06/27/24 06/27/24 History blister powder for inhalation (Incruse Ellipta) Past Med/Surg History Problem List (Updated 06/27/24 @ 16:29 by Yumiko Lilly MD, [facility]) Acute on chronic respiratory failure with hypoxia and hypercapnia Metabolic encephalopathy Hypertensive emergency Acute on chronic heart failure with preserved ejection fraction (HFpEF) (Acute) Paroxysmal atrial fibrillation Aortic stenosis mild to moderate on 05/2023 echo (DAVIS 1.0 cm2, mean PG 15 mmHg) Diabetes mellitus, type 2 Flash pulmonary edema (Acute) Acute decompensated heart failure (Acute) Thrush, oral CAD (coronary artery disease) Tobacco dependence Acute on chronic diastolic (congestive) heart failure COPD with acute exacerbation (Acute) Coronary artery disease s/p 5 stents, last in 2018 Hypoxia Elevated brain natriuretic peptide (BNP) level (Acute) Non-ST elevation [place] (NSTEMI) (Acute) Acute hypoxemic respiratory failure (Acute) Acute dyspnea (Acute) Bilateral leg edema (Acute) Lower extremity pain Unwitnessed fall (Acute) Aspiration pneumonia (Acute) Elevated troponin (Acute) Cancer related pain (Acute) Psychosocial problem Brain metastasis (Chronic) Hemoptysis Encounter for pain management Small cell carcinoma of lung (Acute) Anemia (Acute) Diabetes Unusual change in behavior 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 details Chest pain (Acute) Abscess of upper gum Acute bronchitis Cough Allergic rhinitis Dyspnea on exertion Routine health maintenance Trochanteric bursitis of both hips Stress bladder incontinence, female Smoker Insomnia (Chronic) HTN (hypertension), benign (Chronic) Left hip pain (Acute) Anxiety (Acute) Asthma (Chronic) Lyme disease (Chronic) Fibromyalgia (Chronic) Chronic radicular lumbar pain (Chronic) Hypothyroid (Chronic) COPD (chronic obstructive pulmonary disease) (Chronic) CVD (cardiovascular disease) (Chronic) Medical History Refusal of blood transfusions as patient is Jewish Lung cancer metastatic to brain Chronic respiratory failure Takotsubo cardiomyopathy history of Takotsubo cardiomyopathy per [place] [facility] Aneurysmal dilatation AAA, 3.4 cm History of COVID-19 07/2023 Lumbar disc herniation Peripheral neuropathy bilateral legs Hx of deep venous thrombosis years ago Anxiety Onychomycosis Hypotension still occurring occasionally Hypertensive urgency History of TIA (transient ischemic attack) 2018, no deficits History of myocardial infarction x 5 Surgical History History of cardiac cath History of cholecystectomy History of section History of coronary artery stent placement Family History Mother Myocardial infarction Daughter Myocardial infarction Denies family history of Ovarian cancer Prostate cancer Breast cancer Colorectal cancer Social History Smoking Status: Current some day smoker Tobacco Type: Cigarettes Age Started Using Tobacco: 15; packs per day: 1; Cigarettes Per Day: half a pack; Second Hand Exposure: No; Do You Dip or Chew Tobacco: No; Hx Alcohol Use: No Hx Substance Use: No Preferred Language: [place] Communication Ability: Effective Visual Impairment: No Limitations Telemetry Monitor Required: No Beliefs That Will Affect Care: Alevism Alevism Beliefs: Jewish: Refusal of Blood Transfusion marital status: Current Living Situation: Spouse and Family Current Living Situation Comment: and son current occupational status: disabled How many Children do You have: 6 Other Information That Helps Us Care for You: No Feels Safe at Home: Yes Childhood Exposure to Second-Hand Smoke: Yes Diet: diabetic and regular caffeine: Yes (Coffee) Dental Care, Regularly: No Physical Activity Frequency: Daily Physical Activity Frequency Comment: Daily housework/activites Seatbelt Use: always Sunscreen Use: No Assistive Devices: None Review of Systems Review of Systems: See HPI above Physical Exam Physical Exam: General: Acute respiratory distress; lethargic; fatigue; non-toxic appearing; cooperative; SpO2 97% on BiPAP (FiO2 ratio 40) HEENT: normocephalic, atraumatic; no scleral icterus; PERRLA; vision and hearing grossly intact Neck: supple; no lymphadenopathy; trachea midline Skin: warm, dry without signs of tenting; no cyanosis; no rashes, bruising, lesions, or erythema noted CV: chest wall NTP; RR, tachycardic around 100-105 bpm; S1/S2 normal; 2/6 systolic ejection murmur auscultated at the second ICS MCL; pulses intact and symmetric at radial, DP, and PT Lungs: acute respiratory distress; conversational dyspnea; on BiPAP; symmetrical chest wall expansion; clear breath sounds across all lung dorantes w/o adventitious sounds; no wheezing ABD: Soft, NTP; BS present; no rebound/guarding; no distention MSK: no tics or fasciculations; nonpitting edema noted in the LEs b/l, nonerythematous Neuro: A&Ox3; patient responds to questioning and commands (such as wiggle toes and lift legs); normal mood and affect; no focal deficits appreciated; patient reports that sensation is intact and symmetric in the lower extremities bilaterally assessed via light touch Results & Data Results & Data Vital Signs (Past 12 Hours) Vital Signs Temp Pulse Pulse Resp BP BP Pulse Ox 06/27/24 09:31 101 H 26 H 193/114 H 97 06/27/24 09:25 102 H 24 163/103 H 95 06/27/24 09:20 99 H 24 148/97 H 94 06/27/24 09:15 97 H 24 155/109 H 94 06/27/24 09:10 98 H 24 142/93 H 93 06/27/24 09:05 100 H 24 128/94 06/27/24 09:00 102 H 26 H 144/98 H 93 06/27/24 08:55 106 H 24 146/97 H 93 06/27/24 08:50 111 H 25 H 141/114 H 92 06/27/24 08:47 110 H 25 H 125/98 91 06/27/24 08:42 114 H 28 H 148/112 H 91 06/27/24 08:36 118 H 26 H 148/112 H 92 06/27/24 08:31 117 H 28 H 183/138 H 93 06/27/24 08:28 113 H 28 H 165/118 H 93 06/27/24 08:23 121 H 30 H 187/127 H 95 06/27/24 08:18 120 H 28 H 187/117 H 96 06/27/24 07:31 121 H 20 202/139 H 100 06/27/24 07:18 115 H 25 H 100 06/27/24 07:14 114 H 22 192/131 H 100 06/27/24 06:45 95 H 21 178/144 H 95 06/27/24 06:40 36.9 C 96 H 24 178/144 H 96 06/27/24 06:38 91 06/27/24 06:34 103 H 06/27/24 06:30 95 H 24 174/147 H 96 06/27/24 06:28 O2 Del Method O2 Flow Rate FiO2 06/27/24 09:31 BiPAP 40 06/27/24 09:25 BiPAP 40 06/27/24 09:20 BiPAP 40 06/27/24 09:15 BiPAP 40 06/27/24 09:10 BiPAP 40 06/27/24 09:05 Room Air, BiPAP 40 06/27/24 09:00 BiPAP 40 06/27/24 08:55 BiPAP 40 06/27/24 08:50 BiPAP 40 06/27/24 08:47 BiPAP 40 06/27/24 08:42 BiPAP 40 06/27/24 08:36 BiPAP 40 06/27/24 08:31 BiPAP 40 06/27/24 08:28 BiPAP 40 06/27/24 08:23 BiPAP 40 06/27/24 08:18 BiPAP 40 06/27/24 07:31 BiPAP 06/27/24 07:18 45 06/27/24 07:14 BiPAP 06/27/24 06:45 6 06/27/24 06:40 Nasal Cannula 6 06/27/24 06:38 Nasal Cannula 0 06/27/24 06:34 06/27/24 06:30 6 06/27/24 06:28 Nasal Cannula 6 Laboratory Results Abnormal lab results 06/27/24 06/27/24 06/27/24 Range/Units 06:30 07:41 07:45 RDW Std Deviation 59.4 H (36.4-46.3) fL RDW Coeff of Chanel 18.0 H (11.5-14.5) % Lymph # (Auto) 0.69 L (1.20-3.40) K/uL POC pH (7.35-7.45) POC pCO2 (35-46) mmHg POC pO2 (80-95) mmHg POC HCO3 (19-24) damon/L POC ABG O2 Sat (90-95) % VBG pH 7.20 L (7.36-7.41) VBG pCO2 73 H (38-50) mmHg POC Sodium (135-144) mmol/L Sodium 134 L (136-145) mmol/L Chloride 96 L (98-107) mmol/L Glucose 147 H (70-99(Fasting)) mg/dl Calcium 10.5 H (8.6-10.3) mg/dl AST 12 L (13-39) U/L Troponin I High Sens 80.6 H* (0-14) pg/ml B-Natriuretic Peptide 1179 H (0-100) pg/ml 06/27/24 06/27/24 Range/Units 08:33 09:30 RDW Std Deviation (36.4-46.3) fL RDW Coeff of [place] (11.5-14.5) % Lymph # (Auto) (1.20-3.40) K/uL POC pH 7.20 L 7.29 L (7.35-7.45) POC pCO2 70 H 56 H (35-46) mmHg POC pO2 71 L (80-95) mmHg POC HCO3 28 H 27 H (19-24) damon/L POC ABG O2 Sat 89.0 L (90-95) % VBG pH (7.36-7.41) VBG pCO2 (38-50) mmHg POC Sodium 132 L 133 L (135-144) mmol/L Sodium (136-145) mmol/L Chloride (98-107) mmol/L Glucose (70-99(Fasting)) mg/dl Calcium (8.6-10.3) mg/dl AST (13-39) U/L Troponin I High Sens (0-14) pg/ml B-Natriuretic Peptide (0-100) pg/ml Diagnostic Findings Chest X-Ray 06/27/24 06:38 EXAM: XR chest 1V portable CLINICAL HISTORY: DYSPNEA WTW TECHNIQUE: X-ray of the chest, portable view. COMPARISON: CR Chest DATED 05/06/2024 FINDINGS: Left basal opacity unchanged with respect to the prior study. An increase in interstitial patterns in both lungs Normal configuration of the mediastinum. The paxton are normal in size and position. The cardiac size appears increased. The bony thorax is unremarkable. The costophrenic and cardiophrenic angles are clear. IMPRESSION: 1. An increase in interstitial patterns in both lungs. The differential consideration is an infection versus bronchitis or bronchovascular congestion. 2. Left basal opacity unchanged for the prior study. It is suggested to rule out pneumonia. CT is recommended. Electronically signed by Liliya Zazueta 06-27-2024 07:50 AM Chest CTA 06/27/24 07:20 CT angio chest PE protocol CT DOSE: 968.9 mGy.cm HISTORY: 64 years-old Female with COPD, CHF, PE< PNA. Acute shortness of breath TECHNIQUE: Multiple CTA images of the chest were obtained after the intravenous administration of 80 ml Optiray. Coronal and sagittal MIPS were obtained from the axial data set and were submitted for review. All measurements were obtained according to NASCET criteria. A dose lowering technique was utilized adhering to the principles of ALARA. COMPARISON: 05/06/2024 FINDINGS: CTA: Heart is mildly enlarged. There is no pericardial effusion. Extensive coronary artery calcifications. Atherosclerosis of the thoracic aorta without aneurysm. Respiratory motion limits the study. No pulmonary emboli are identified. CT CHEST: Unremarkable thyroid. There are a few borderline-enlarged mediastinal and hilar lymph nodes measuring up to 12 mm. A precarinal 12 mm lymph node image 148 previously measured 8 mm. 11 mm subcarinal lymph node image 141 previously measured 8 mm. A 12 mm right hilar lymph node has also increased in size. Trace right and small left pleural effusions. Respiratory motion limits the study. Progressive intralobular septal thickening is noted along with bronchial wall thickening and moderate pulmonary emphysema. Mild patchy bibasilar airspace opacities. Left perihilar fibrosis redemonstrated along with a residual 5 cm masslike consolidation within the left lower lobe on image 88 series 4 which is generally unchanged from the comparison study. Mild tracheobronchial secretions. Atrophic left kidney. No acute upper abdominal abnormality. No acute fracture. IMPRESSION: 1. No pulmonary emboli identified. 2. Cardiomegaly with interstitial pulmonary edema, trace right and small left pleural effusions. 3. Mild airspace opacities of the lung bases and subpleural lungs may represent atelectasis versus a superimposed pneumonitis. 4. Left perihilar fibrosis redemonstrated along with an unchanged masslike area of consolidation the left lower lobe measuring 5 cm. 5. Mild mediastinal and hilar lymphadenopathy has increased in size from 05/06/2024. ACT 112: Negative or not required by law. The above report was generated using voice recognition software. It may contain grammatical, syntax or spelling errors. Electronically signed by: Garret Bowles M.D. 06/27/2024 8:29 AM ECG Additional Comments: ECG revealed sinus tachycardia at 103 bpm; QTc 466; ST depressions appreciated in the inferior and lateral leads Given new onset of ST depressions and elevated troponin, will obtain repeat EKG Code Status & VTE Plan Code Status Full code (discussed with both patient and patient's at bedside; she reports that she would want intubation/CPR/defibrillation if needed) VTE Prophylaxis Plan VTE Prophylaxis will be ordered: Yes Supervising Physician Co-Signing Physician Notes PA Supervision Note: I personally saw and examined the patient. I verified all franks points and agree with JERONIMO Magallon with the following exceptions and/or additions: S-this patient is a 64-year-old female with a history of metastatic small cell carcinoma of the lung, CAD s/p coronary stents, paroxysmal atrial fibrillation on Eliquis, COPD, current smoker, anxiety, cancer related pain, DM2 who presents to the ER with significant respiratory distress, shortness of breath, and acute respiratory failure with hypoxemia and hypercarbia requiring BiPAP. She was placed on BiPAP and given IV Lasix, placed on nitro glycerin drip. She was noted to have significantly elevated blood pressures on arrival and significant ST depressions in the inferolateral leads on ECG with elevated troponin. She was not really having chest pain but a lot of shortness of breath. She is on high doses of oxycodone but was recently switched off of that to a fentanyl patch. She also takes lorazepam on a regular basis 3 times a day. Prior to me seeing her, she was given IV Ativan x 2 doses and IV Dilaudid to help her tolerate the BiPAP due to anxiety and to treat her pain, respectively. She was a bit sedated when I saw her. O- Vitals reviewed Gen: Lethargic but does wake up and answer questions, with BiPAP mask in place, oriented to person and place HEENT: Anicteric sclerae CV: RRR, 2/6 ORALIA at the RUSB Pulm: Positive wheezing bilateral, bibasilar crackles, mild tachypnea at rest with BiPAP in place Abd: +BS soft NT ND no masses or hernias Ext: Trace bilateral leg edema, 2+ DP pulses Skin: No rashes, warm/dry Neuro: Full strength throughout CBC, CMP, troponin, BNP, ABG, VBG, procalcitonin reviewed Chest x-ray and chest CT reviewed ECG reviewed A/N-85-[id number]-old female with history noted as above, here with acute respiratory failure with hypoxemia and hypercarbia secondary to acute on chronic HFpEF, flash pulmonary edema. Do not suspect pneumonia at this time although slight possibility given lung mass but no fevers, no leukocytosis or evidence of sepsis. Continue treating with BiPAP and intubate as needed for respiratory failure, follow ABG Continue diuresis, serial trend troponin, echocardiogram ordered, cardiology consult. Wean off nitroglycerin drip as she is preload dependent with aortic stenosis Avoid excessive opioids and benzodiazepines but avoid withdrawal from benzodiazepines given daily use Other management as per ICU, cardiology, and as above PG Care Time/CCT Total # of Minutes Spent Total Time Spent with Patient: Total time spent is greater than 50% in coordination of care (as documented) at patient's floor/unit and/or counseling patient: Coding [place] [address] INT INP/OBS CARE 3/75MIN Patient Type Established Medical Decision Making High Complexity Diagnoses Acute decompensated heart failure I50.9 Coronary artery disease of [place] artery of [place] heart with stable angina pectoris I25.118 Associated angina: with stable angina Coronary Disease-Associated Artery/Lesion type: [place] artery [place] vs. 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 transplanted heart: [place] heart Qualified Code(s): I25.118 - Atherosclerotic heart disease of [place] coronary artery with other forms of angina pectoris (7) COPD (chronic obstructive pulmonary disease) COPD type: unspecified COPD Qualified Code(s): J44.9 - Chronic obstructive pulmonary disease, unspecified
[2024-06-27 09:42] LABS: iSTAT Arterial Blood Gas HCO3 27 meg/L (19-24); iSTAT Arterial Blood Gas pCO2 56 mmHg (35-46); iSTAT Arterial Blood Gas pH 7.29 (7.35-7.45); iSTAT Arterial Blood Gas pO2 88 mmHg (80-95); iSTAT Carbon Dioxide 28 mmol/L (24-31); iSTAT Hematocrit 42 % (37-47); iSTAT Hemoglobin 14.3 g/dl (12.0-16.0); iSTAT Potassium 3.5 mmol/L (3.3-5.0); iSTAT Sample Type Arterial; iSTAT Sodium 133 mmol/L (135-144)
[2024-06-27] MEDS ORDERED: DEXTROSE 50% 50 ML SYRINGE IV PRN (09:44)
[2024-06-27] MEDS ORDERED: CARBOHYDRATES FOR HYPOGLYCEMIA PO PRN (09:44)
[2024-06-27] MEDS ORDERED: GLUCOSE 40% GEL 15 GM TUBE PO PRN (09:44)
[2024-06-27] MEDS ORDERED: GLUCAGON FOR INJ 1 MG VIAL SQ PRN (09:44)
[2024-06-27] MEDS ORDERED: GLUCOSE 10 TAB/TUBE PO PRN (09:44)
[2024-06-27] MEDS ORDERED: OLANZAPINE 2.5 MG TAB PO PRN (09:51)
[2024-06-27] MEDS ORDERED: LORazepam 2 MG/1 ML VIAL IV PRN (09:54)
--- NOTE | 2024-06-27 10:02 | Critical Care Consultation ---
Date of Consultation June 27, 2024 Assessment & Plan (1) Hypertensive emergency: (2) Acute on chronic heart failure with preserved ejection fraction (HFpEF): (3) Paroxysmal atrial fibrillation: (4) Aortic stenosis: (5) Diabetes mellitus, type 2: (6) Acute decompensated heart failure: (7) Tobacco dependence: (8) COPD with acute exacerbation: (9) Non-ST elevation MN (NSTEMI): (10) Metabolic encephalopathy: (11) Small cell lung cancer in adult: (12) Anxiety: (13) Acute on chronic respiratory failure with hypoxia and hypercapnia: (14) Lung cancer metastatic to brain: Plan Reason Critically Ill: 64-year-old female being admitted to the hospital for shortness of breath. Being transferred to the ICU as she was on nitro drip Past medical history: Hypertension, hypothyroidism, diabetes, GERD, small cell lung cancer metastatic, diagnosed 10/30 PFT 10/13/2023 personally reviewed: Moderate severe obstruction, insignificant bronchodilator response, lung volumes are not accurate, moderate decrease in DLCO FVC 1.65 L 46%, FEV1 1.15 L 42%, FEV1/FVC 70%, DLCO 59% Neuro - [facility] ICU: Negative --Metabolic encephalopathy Secondary to hypercapnia TSH within normal limit on 06/20/2024 Glucose, sodium within normal limit Calcium a bit on the higher side Follow-up PTH --Anxiety Takes lorazepam at home as needed Cardiac - --Hypertensive emergency With acute HFpEF BNP 1179 Respiratory BioFire negative for everything on 06/27/2024 Continue with nitro drip Try to decrease the MAP by 25% in the first 24 hours. Continue with diuresis --Elevated troponin Likely type II MN Follow-up 2D echo Cardiology on board EKG 06/27/2024 6:32 AM: Sinus tachycardia, normal axis, ST depressions appreciated on the lateral leads V4-V6 -- A-fib On apixaban Respiratory - CTA chest 06/27/2024 personally reviewed: Motion degraded study Interlobular thickening appreciated bilaterally upper and lower lobes Left lower lobe 4.9 cm opacity Small bilateral pleural effusion Elevated left hemidiaphragm Minimal mediastinal lymphadenopathy -- Acute on chronic hypercapnic hypoxic respiratory failure Multifactorial Hypoxia is likely from pulmonary edema Hypercapnia could be from medications, she takes lorazepam at home for anxiety, she is on chronic opioids at home as well, she also uses marijuana on a regular basis Follow-up urine drug screen --COPD with emphysema Gold E Currently on Incruse along with nebulized budesonide and formoterol Along with as needed albuterol PFT 10/13/2023 personally reviewed: Moderate severe obstruction, insignificant bronchodilator response, lung volumes are not accurate, moderate decrease in DLCO FVC 1.65 L 46%, FEV1 1.15 L 42%, FEV1/FVC 69%, DLCO 59%, DLCO/VA 90% Absolute eosinophil count 110 on 05/26/2023 -- 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 4.7 cm x 2.1 cm, no previous CT of the chest to compare S/p 2 cycles of chemo (Carboplatin, etoposide and atezolizumab with Trilaciclib) and radiation On maintenance atezolizumab 2D echo 05/27/2023: EF 55-60%, moderate concentric LVH, grade 1 diastolic dysfunction, mild to moderate aortic stenosis -- Current smoker >60 pack-year smoking history, currently smoking a pack a day -- Obesity Advised to lose weight diet and exercise GI - -- No acute issues RENAL/LYTES - -- Monitor BUN/creatinine Avoid nephrotoxic medication - -- Henderson for strict in and out ENDO - -- Hypercalcemia Calcium 10.5 with albumin 4.2 Follow-up PTH --ICU hypoglycemia protocol HEME - -- Normocytic anemia Monitor H&H ID - -- No clear source of infection Procalcitonin 0.05 Continue with doxycycline for COPD exacerbation --Prophylaxis VTE: Heparin drip GI: Pantoprazole Lines: Peripheral Diet: N.p.o. Plan: Strict ins/out Diuretics to keep the patient negative balance, aim for at least -1.5 L on a daily basis Repeat ABG did show improvement in pH from 7.20 --> 7.29, continue with BiPAP. If there is any worsening then we will plan to intubate Patient does have chronic changes in the left lower lobe, difficult to exclude superimposed infection. Follow-up procalcitonin. For hypertensive emergency would try to go down by MAP 25% and try to gradually taper off nitroglycerin Follow-up parathyroid hormone Case was discussed with cardiology, patient will ultimately need a cardiac cath Patient does have history of anxiety for which she takes lorazepam, she also takes opioids on a regular basis If she is anxious okay to give lorazepam but would want her to be on BiPAP following that given the hypercapnia I have personally spent 64 minutes of critical care time in the direct management of this patient. This is a life/limb threatening event. This includes time spent evaluating patient, direct bedside care, chart review, placing orders, interpretation of diagnostic studies, discussion with consultants, patient, and family members, as well as other required patient management activities. This time is exclusive of all separately billable procedures, and teaching time and separate from and in addition to any other critical care service time. History of Present Illness Attending Physician: Juanita Estrella MD History of Present Illness 64-year-old female being admitted to the hospital for shortness of breath Past medical history: Hypertension, hypothyroidism, diabetes, GERD, small cell lung cancer metastatic, diagnosed 10/30 Being transferred to the ICU as she was on nitro drip Currently on maintenance atezolizumab Patient had acute shortness of breath around 3 AM he was brought in by her . At the time of examination in the ICU, patient systolic blood pressure was in the 170s and diastolic in 100s, heart rate in 102 She was on BiPAP 20/10, 40%. Getting tidal volumes around 700. Respiratory it was in the low to mid 20s. She was answering all the questions appropriately Patient denies any chest pain at the time in ICU No dysuria, no diarrhea She says she is compliant with her medications. No fever or chills No night sweats, no unintentional weight loss No hematuria, no hematochezia, no epistaxis Social history:>60 pack-year smoking history, currently smoking a pack a day, no alcohol, denies any illicit drug use. 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 Pets: None. No birds or poultry nearby Allergies: Seasonal Asthma: No personal or family history of asthma Lung cancer: History of lung cancer in father who was a smoker Allergies Allergy/AdvReac Type Severity Reaction Status Date / Time latex Allergy Intermediate skin Verified 05/15/24 10:08 itching Influenza Virus Vaccines AdvReac Severe developed Verified 05/15/24 10:08 blood clots vaccine adjuvant system, AdvReac Severe blood clots Verified 05/15/24 10:08 AS01B liposomal [From Shingrix (PF)] varicella-zoster virus AdvReac Severe blood clots Verified 05/15/24 10:08 glycoprotein E, recombinant [From Shingrix (PF)] zolpidem [From Ambien] AdvReac Severe Hallucinati Verified 05/15/24 10:08 ng Home Medications Medication Instructions Recorded Confirmed Type levocetirizine 5 mg tablet (Xyzal) 5 mg PO DAILY PRN allergies 05/26/23 06/27/24 History Wheeled Walker #1 ea 06/16/23 05/15/24 Rx nicotine 1 patch transdermal DAILY 09/17/23 06/27/24 History 21mg/24hr-14mg/24hr-7mg/24hr daily transderm patches,sequentl blood-glucose meter (OneTouch #1 ea 10/28/23 05/15/24 Rx Ultra2 Meter) lancets 33 gauge (OneTouch [place] #100 ea 10/28/23 05/15/24 Rx Plus Lancet) Hospital Bed Homecare #1 ea 11/04/23 05/15/24 Rx olanzapine 2.5 mg tablet 2.5 mg PO UD PRN Nausea And 11/04/23 06/27/24 History Vomiting WHEEL MOBILITY SCOOTER #1 ea 11/08/23 05/15/24 Rx Wheelchair (Manual) #1 ea 11/08/23 05/15/24 Rx transport chair #1 ea 11/10/23 05/15/24 Rx Magic Mouthwash 300 mL mouthwash 10 ml mucous membrane ACHS PRN 11/22/23 06/27/24 Rx dysphagia #300 mL isosorbide mononitrate 30 mg 30 mg PO QAM #30 tabs 12/03/23 06/27/24 Rx tablet,extended release 24 hr blood sugar diagnostic (OneTouch #100 ea 12/27/23 05/15/24 Rx Ultra Test strips) prochlorperazine maleate 10 mg 10 mg PO DIRECTED PRN 12/28/23 06/27/24 History tablet NAUSEA/VOMITING metoprolol succinate 50 mg 50 mg PO DAILY #30 tabs 12/30/23 06/27/24 Rx tablet,extended release 24 hr ranolazine 500 mg tablet,extended 500 mg PO BID #60 tabs 12/30/23 06/27/24 Rx release,12 hr albuterol sulfate 90 mcg/actuation 2 puff inhalation QID PRN 02/11/24 06/27/24 Rx aerosol inhaler shortness of breath or wheezing #6.7 grams promethazine 6.25 mg-codeine 10 5 ml PO Q8H PRN cough #473 mL 02/11/24 06/27/24 Rx mg/5 mL syrup budesonide 0.5 mg/2 mL suspension 0.5 mg (2 mL) NEB BID #60 doses 02/24/24 06/27/24 Rx for nebulization metformin 500 mg tablet 0 mg PO BID 03/01/24 06/27/24 History Emotional Support Animal #1 ea 03/31/24 05/15/24 Rx apixaban 5 mg tablet (Eliquis) 5 mg PO BID #60 tabs 04/19/24 06/27/24 Rx nitroglycerin 0.4 mg sublingual 0.4 mg sublingual Q5M PRN chest 05/15/24 06/27/24 Rx tablet pain #30 tabs nystatin 100,000 unit/mL oral See Rx Instructions PO DAILY 10 05/15/24 06/27/24 Rx suspension days #60 mL bumetanide 1 mg tablet 1 mg PO QAM #30 tabs 06/05/24 06/27/24 Rx cyanocobalamin (vitamin B-12) 500 500 mcg PO QAM #30 tabs 06/05/24 06/27/24 Rx mcg tablet ondansetron HCl 4 mg tablet 4 mg PO QID PRN nausea and 06/05/24 06/27/24 Rx vomiting #120 tabs oxycodone-acetaminophen 10 mg-325 1 tab PO Q4H PRN cancer related 06/13/24 06/27/24 Rx mg tablet (Percocet) breakthrough pain #180 tabs pregabalin 150 mg capsule (Lyrica) 150 mg PO TID #90 caps 06/15/24 06/27/24 Rx lorazepam 1 mg tablet 1 mg PO TID PRN anxiety, cancer 06/21/24 06/27/24 Rx #90 tabs fentanyl 50 mcg/hr transdermal 50 mcg transdermal Q72H #5 ea 06/26/24 06/27/24 Rx patch formoterol fumarate 20 mcg/2 mL 0 mcg inhalation BIDR 06/27/24 06/27/24 History solution for nebulization (Perforomist) pantoprazole 40 mg tablet,delayed 0 mg PO QAM 06/27/24 06/27/24 History release umeclidinium 62.5 mcg/actuation 0 inh inhalation DAILY 06/27/24 06/27/24 History blister powder for inhalation (Incruse Ellipta) Patient History Medical History Refusal of blood transfusions as patient is [place]ism Lung cancer metastatic to brain Chronic respiratory failure [place]ub[place] cardiomyopathy history of [place] cardiomyopathy per [place] cardio Aneurysmal dilatation AAA, 3.4 cm History of COVID-19 07/2023 Lumbar disc herniation Peripheral neuropathy bilateral legs Hx of deep venous thrombosis years ago Anxiety Onychomycosis Hypotension still occurring occasionally Hypertensive urgency History of TIA (transient ischemic attack) 2018, no deficits History of myocardial infarction x 5 Surgical History History of cardiac cath History of cholecystectomy History of section History of coronary artery stent placement Family History Mother Myocardial infarction Daughter Myocardial infarction Denies family history of Ovarian cancer Prostate cancer Breast cancer Colorectal cancer Social History Smoking Status: Current some day smoker Tobacco Type: Cigarettes Age Started Using Tobacco: 15; packs per day: 1; Cigarettes Per Day: half a pack; Second Hand Exposure: No; Do You Dip or Chew Tobacco: No; Hx Alcohol Use: No Hx Substance Use: No Preferred Language: Welsh Communication Ability: Effective Visual Impairment: No Limitations Chicken Hatchery Helper Required: No Beliefs That Will Affect Care: Baptism Baptism Beliefs: [place]: Refusal of Blood Transfusion marital status: Current Living Situation: Spouse and Family Current Living Situation Comment: and son current occupational status: disabled How many Children do You have: 6 Other Information That Helps Us Care for You: No Feels Safe at Home: Yes Childhood Exposure to Second-Hand Smoke: Yes Diet: diabetic and regular caffeine: Yes (Coffee) Dental Care, Regularly: No Physical Activity Frequency: Daily Physical Activity Frequency Comment: Daily housework/activites Seatbelt Use: always Sunscreen Use: No Assistive Devices: None Review of Systems 2 Review of Systems: All systems reviewed & are unremarkable except as noted in HPI & below Physical Exam 2 Physical Exam: Constitutional: Respiratory distress HEENT: EOMI, PERRLA Respiratory system: Decreased air entry bilaterally, no wheeze, no rhonchi, positive crackles bilaterally more on the left side CVS: S1-S2 positive, 2 out of 6 systolic murmur appreciated best at aorta Abdomen: Soft, nontender, nondistended, positive bowel sounds x4 Extremities: +2 pulses bilaterally radialis/ dorsalis pedis, no cyanosis, +2 pitting edema bilateral lower extremity Neuro: Somnolent but easily arousable, oriented to self and place Psych: Unable to assess G/U: Positive [place] Skin: no rashes, warm and dry Lymphatic: no cervical or axillary lymphadenopathy Results & Data Results & Data Vital Signs (Past 12 Hours) Vital Signs Temp Pulse Pulse Resp BP BP Pulse Ox 06/27/24 09:40 103 H 26 H 148/105 H 96 06/27/24 09:35 106 H 24 159/111 H 97 06/27/24 09:31 101 H 26 H 193/114 H 97 06/27/24 09:25 102 H 24 163/103 H 95 06/27/24 09:20 99 H 24 148/97 H 94 06/27/24 09:15 97 H 24 155/109 H 94 06/27/24 09:10 98 H 24 142/93 H 93 06/27/24 09:05 100 H 24 128/94 06/27/24 09:00 102 H 26 H 144/98 H 93 06/27/24 08:55 106 H 24 146/97 H 93 06/27/24 08:50 111 H 25 H 141/114 H 92 06/27/24 08:47 110 H 25 H 125/98 91 06/27/24 08:45 91 06/27/24 08:42 114 H 28 H 148/112 H 91 06/27/24 08:36 118 H 26 H 148/112 H 92 06/27/24 08:31 117 H 28 H 183/138 H 93 06/27/24 08:28 113 H 28 H 165/118 H 93 06/27/24 08:23 121 H 30 H 187/127 H 95 06/27/24 08:18 120 H 28 H 187/117 H 96 06/27/24 07:31 121 H 20 202/139 H 100 06/27/24 07:18 115 H 25 H 100 06/27/24 07:14 114 H 22 192/131 H 100 06/27/24 06:45 95 H 21 178/144 H 95 06/27/24 06:40 36.9 C 96 H 24 178/144 H 96 06/27/24 06:38 91 06/27/24 06:34 103 H 06/27/24 06:30 95 H 24 174/147 H 96 06/27/24 06:28 O2 Del Method O2 Flow Rate FiO2 06/27/24 09:40 BiPAP 40 06/27/24 09:35 BiPAP 40 06/27/24 09:31 BiPAP 40 06/27/24 09:25 BiPAP 40 06/27/24 09:20 BiPAP 40 06/27/24 09:15 BiPAP 40 06/27/24 09:10 BiPAP 40 06/27/24 09:05 Room Air, BiPAP 40 06/27/24 09:00 BiPAP 40 06/27/24 08:55 BiPAP 40 06/27/24 08:50 BiPAP 40 06/27/24 08:47 BiPAP 40 06/27/24 08:45 40 06/27/24 08:42 BiPAP 40 06/27/24 08:36 BiPAP 40 06/27/24 08:31 BiPAP 40 06/27/24 08:28 BiPAP 40 06/27/24 08:23 BiPAP 40 06/27/24 08:18 BiPAP 40 06/27/24 07:31 BiPAP 06/27/24 07:18 45 06/27/24 07:14 BiPAP 06/27/24 06:45 6 06/27/24 06:40 Nasal Cannula 6 06/27/24 06:38 Nasal Cannula 0 06/27/24 06:34 06/27/24 06:30 6 06/27/24 06:28 Nasal Cannula 6 Laboratory Results 06/27/24 06:30 06/27/24 06:30 Coding Level of Care Code 42983 CRITICAL CARE 1ST 30-74M Diagnoses Hypertensive emergency I16.1 Acute on chronic heart failure with preserved ejection fraction (HFpEF) I50.33 Paroxysmal atrial fibrillation I48.0 Aortic stenosis I35.0 Diabetes mellitus, type 2 E11.9 Acute decompensated heart failure I50.9 Tobacco dependence F17.200 COPD with acute exacerbation J44.1 Non-ST elevation [place] (NSTEMI) I21.4 Metabolic encephalopathy G93.41 Small cell lung cancer in adult C34.90 Anxiety F41.9 Acute on chronic respiratory failure with hypoxia and hypercapnia J96.21; J96.22 Lung cancer metastatic to brain C34.90; C79.31
--- NOTE | 2024-06-27 11:19 | Cardiology Consultation ---
Date of Consultation June 27, 2024 Assessment & Plan (1) Acute on chronic heart failure with preserved ejection fraction (HFpEF): (2) Non-ST elevation CT (NSTEMI): (3) Aortic stenosis: (4) CAD (coronary artery disease): (5) S/P coronary artery stent placement: (6) Paroxysmal atrial fibrillation: (7) Tobacco dependence: (8) Hypertensive emergency: Plan ASSESSMENT/PLAN: 1. Acute heart failure with preserved EF: Agree with diuresis. Try to achieve at least 1 to 2 L net negative fluid balance today. Nitrate therapy has been provided for preload reduction. On BiPAP. Echo pending. Can consider SGLT2 inhibitor if no contraindication in the future. Low-sodium diet. Strict I's and O's. Daily weights. Recommend heart failure program on discharge. 2. CAD s/p PCI/NSTEMI: PCI details unknown. Has been using nitroglycerin for chest discomfort. Troponin elevated and trending upward. Troponin elevation likely due to demand ischemia in the setting of hypertension, respiratory failure, CHF, and in the setting of CAD. Echo pending. Once clinically impro juan m from a heart failure standpoint, we will further discuss her potential anginal symptoms. Considering coronary angiography once able to lay flat for cardiac catheterization. She was chest pain-free at the time of admission as per discussion with admitting hospitalist. Recommend aspirin. Continue beta- brianna. On Ranexa chronically. Recommend high intensity statin therapy. 3. Aortic stenosis: Echo pending to further characterize her aortic stenosis. 4. Paroxysmal atrial fibrillation: Sinus rhythm today. Continue beta-brianna. Continue anticoagulation for stroke risk reduction if no contraindication. Given that there may be upcoming procedure, can use heparin drip for now in place of Eliquis. 5. Hypertension: Severely hypertensive earlier in the ER. Blood pressure has significantly improved and was normotensive while at the bedside. Continue current plan. 6. Dyslipidemia: Had been on atorvastatin 40 mg daily in the past. Recommend high intensity statin therapy if no contraindication. 7. 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 Follows with oncology. 8. Hypertensive emergency: As above. Managed by critical care team and primary hospitalist service with significant improvement in blood pressure. 9. Acute on chronic hypercapnic hypoxic respiratory failure: Hypervolemic. Diuresing. On BiPAP. Has known COPD with emphysema. As per critical care team. 10. Tobacco abuse: Smoking cessation. 11. Disposition: Cardiology will continue to follow. Patient care discussed with admitting hospitalist service, Junior Magallon PA-C, and critical care attending, Dr. Lilly. Highly complex medical issues. 45 minutes of critical care time. Thank you for allowing me to participate in the care of your patient. Please ca ll for any other questions or concerns. Sincerely, Martinez Lizama M.D. History of Present Illness Reason for Consultation: CHF Requesting Physician: Juanita Estrella MD Attending Physician: Juanita Estrella MD History of Present Illness Mrs. Santos is a pleasant 64-year-old female with a history significant for CAD s/p multiple PCI (4 or 5 in [id number]), Takotsubo cardiomyopathy 2017, paroxysmal atrial fibrillation (dx October 2023),TIA, chronic respiratory failure, COPD, small cell lung CA with brain met, recurrent DVT, aortic stenosis, hypertension, diabetes, hypothyroidism. Her primary property management intern is Dr. Andrade. Between 2014 and 2017 while living in [place], she received 4 or 5 stents. Details of her PCI are not known at the time of this note. She was admitted today with hypoxia and respiratory distress. The history was obtained by speaking with the , discussing with admitting hospitalist team, and reviewing records as she was on BiPAP and somnolent at the time of this consult. Her states that she has been coughing with dark mucus and sometimes clear sputum. She has been short of breath over the past several days and has had increased edema over the past week. She was placed on Bumex 1 mg daily at the beginning of May when discharged from the hospital. Her states that that was improving her edema but more recently, her symptoms progressed despite the Bumex. She maintains a low-sodium diet. At approximately 3 AM this morning, she became even more acutely short of breath, prompting her ER visit. Leading up to this, she had reported orthopnea. Her states that she has not had any fevers, melena, hematochezia, hematuria, or syncope. She has been having chest discomfort both with exertion and at rest. He has been giving her nitroglycerin over the past week, which would provide relief of her symptoms. She was placed on BiPAP and started on a nitroglycerin drip in the ER. She was significantly hypertensive. She was also administered Lasix 40 mg IV. During today's visit, she was unable to provide any meaningful history. She has had recurrent DVT. The first was at the age of 17 after delivering her child. She had another 1 in her 40s and may have had an accident prior to that. Review of systems: As above. Review of systems otherwise unobtainable. Family history: Mother, father, brother all had CAD. Social history: She smokes a pack per day. She denies drug or alcohol abuse. She lives at home with her . She had 11 children, 6 biologic. 2 of her children have , most recently a son was murdered in 2022. Her was present at the bedside. Allergies Allergy/AdvReac Type Severity Reaction Status Date / Time latex Allergy Intermediate skin Verified 05/15/24 10:08 itching Influenza Virus Vaccines AdvReac Severe developed Verified 05/15/24 10:08 blood clots vaccine adjuvant system, AdvReac Severe blood clots Verified 05/15/24 10:08 [id number] liposomal [From Shingrix (PF)] varicella-zoster virus AdvReac Severe blood clots Verified 05/15/24 10:08 glycoprotein E, recombinant [From Shingrix (PF)] zolpidem [From Ambien] AdvReac Severe Hallucinati Verified 05/15/24 10:08 ng Home Medications Medication Instructions Recorded Confirmed Type levocetirizine 5 mg tablet (Xyzal) 5 mg PO DAILY PRN allergies 05/26/23 06/27/24 History Wheeled Walker #1 ea 06/16/23 05/15/24 Rx nicotine 1 patch transdermal DAILY 09/17/23 06/27/24 History 21mg/24hr-14mg/24hr-7mg/24hr daily transderm patches,sequentl blood-glucose meter (OneTouch #1 ea 10/28/23 05/15/24 Rx Ultra2 Meter) lancets 33 gauge (OneTouch Delica #100 ea 10/28/23 05/15/24 Rx Plus Lancet) Hospital Bed Homecare #1 ea 11/04/23 05/15/24 Rx olanzapine 2.5 mg tablet 2.5 mg PO UD PRN Nausea And 11/04/23 06/27/24 History Vomiting WHEEL MOBILITY SCOOTER #1 ea 11/08/23 05/15/24 Rx Wheelchair (Manual) #1 ea 11/08/23 05/15/24 Rx transport chair #1 ea 11/10/23 05/15/24 Rx Magic Mouthwash 300 mL mouthwash 10 ml mucous membrane ACHS PRN 11/22/23 06/27/24 Rx dysphagia #300 mL isosorbide mononitrate 30 mg 30 mg PO QAM #30 tabs 12/03/23 06/27/24 Rx tablet,extended release 24 hr blood sugar diagnostic (OneTouch #100 ea 12/27/23 05/15/24 Rx Ultra Test strips) prochlorperazine maleate 10 mg 10 mg PO DIRECTED PRN 12/28/23 06/27/24 History tablet NAUSEA/VOMITING metoprolol succinate 50 mg 50 mg PO DAILY #30 tabs 12/30/23 06/27/24 Rx tablet,extended release 24 hr ranolazine 500 mg tablet,extended 500 mg PO BID #60 tabs 12/30/23 06/27/24 Rx release,12 hr albuterol sulfate 90 mcg/actuation 2 puff inhalation QID PRN 02/11/24 06/27/24 Rx aerosol inhaler shortness of breath or wheezing #6.7 grams promethazine 6.25 mg-codeine 10 5 ml PO Q8H PRN cough #473 mL 02/11/24 06/27/24 Rx mg/5 mL syrup budesonide 0.5 mg/2 mL suspension 0.5 mg (2 mL) NEB BID #60 doses 02/24/24 06/27/24 Rx for nebulization metformin 500 mg tablet 0 mg PO BID 03/01/24 06/27/24 History Emotional Support Animal #1 ea 03/31/24 05/15/24 Rx apixaban 5 mg tablet (Eliquis) 5 mg PO BID #60 tabs 04/19/24 06/27/24 Rx nitroglycerin 0.4 mg sublingual 0.4 mg sublingual Q5M PRN chest 05/15/24 06/27/24 Rx tablet pain #30 tabs nystatin 100,000 unit/mL oral See Rx Instructions PO DAILY 10 05/15/24 06/27/24 Rx suspension days #60 mL bumetanide 1 mg tablet 1 mg PO QAM #30 tabs 06/05/24 06/27/24 Rx cyanocobalamin (vitamin B-12) 500 500 mcg PO QAM #30 tabs 06/05/24 06/27/24 Rx mcg tablet ondansetron HCl 4 mg tablet 4 mg PO QID PRN nausea and 06/05/24 06/27/24 Rx vomiting #120 tabs oxycodone-acetaminophen 10 mg-325 1 tab PO Q4H PRN cancer related 06/13/24 06/27/24 Rx mg tablet (Percocet) breakthrough pain #180 tabs pregabalin 150 mg capsule (Lyrica) 150 mg PO TID #90 caps 06/15/24 06/27/24 Rx lorazepam 1 mg tablet 1 mg PO TID PRN anxiety, cancer 06/21/24 06/27/24 Rx #90 tabs fentanyl 50 mcg/hr transdermal 50 mcg transdermal Q72H #5 ea 06/26/24 06/27/24 Rx patch formoterol fumarate 20 mcg/2 mL 0 mcg inhalation BIDR 06/27/24 06/27/24 History solution for nebulization (Perforomist) pantoprazole 40 mg tablet,delayed 0 mg PO QAM 06/27/24 06/27/24 History release umeclidinium 62.5 mcg/actuation 0 inh inhalation DAILY 06/27/24 06/27/24 History blister powder for inhalation (Incruse Ellipta) Problem List (Updated 06/27/24 @ 12:59 by Brian Lizama MD) Hypertensive emergency Acute on chronic heart failure with preserved ejection fraction (HFpEF) Paroxysmal atrial fibrillation Aortic stenosis mild to moderate on 05/2023 echo (DAVIS 1.0 cm2, mean PG 15 mmHg) Diabetes mellitus, type 2 Flash pulmonary edema Acute decompensated heart failure Thrush, oral CAD (coronary artery disease) Tobacco dependence Acute on chronic diastolic (congestive) heart failure COPD with acute exacerbation Coronary artery disease s/p 5 stents, last in 2018 Hypoxia Elevated brain natriuretic peptide (BNP) level (Acute) Non-ST elevation CT (NSTEMI) (Acute) Acute hypoxemic respiratory failure (Acute) Acute dyspnea (Acute) Bilateral leg edema (Acute) Lower extremity pain Unwitnessed fall (Acute) Aspiration pneumonia (Acute) Elevated troponin (Acute) Cancer related pain (Acute) Psychosocial problem Brain metastasis (Chronic) Hemoptysis Encounter for pain management Small cell carcinoma of lung (Acute) Anemia (Acute) Diabetes Unusual change in behavior 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 details Chest pain (Acute) Abscess of upper gum Acute bronchitis Cough Allergic rhinitis Dyspnea on exertion Routine health maintenance Trochanteric bursitis of both hips Stress bladder incontinence, female Smoker Insomnia (Chronic) HTN (hypertension), benign (Chronic) Left hip pain (Acute) Anxiety (Acute) Asthma (Chronic) Lyme disease (Chronic) Fibromyalgia (Chronic) Chronic radicular lumbar pain (Chronic) Hypothyroid (Chronic) COPD (chronic obstructive pulmonary disease) (Chronic) CVD (cardiovascular disease) (Chronic) Patient History Medical History Refusal of blood transfusions as patient is Mosque Lung cancer metastatic to brain Chronic respiratory failure Takotsubo cardiomyopathy history of Takotsubo cardiomyopathy per [facility] Aneurysmal dilatation AAA, 3.4 cm History of COVID-19 07/2023 Lumbar disc herniation Peripheral neuropathy bilateral legs Hx of deep venous thrombosis years ago Anxiety Onychomycosis Hypotension still occurring occasionally Hypertensive urgency History of TIA (transient ischemic attack) 2018, no deficits History of myocardial infarction x 5 Surgical History History of cardiac cath History of cholecystectomy History of section History of coronary artery stent placement Family History Mother Myocardial infarction Daughter Myocardial infarction Denies family history of Ovarian cancer Prostate cancer Breast cancer Colorectal cancer Social History Smoking Status: Current some day smoker Tobacco Type: Cigarettes Age Started Using Tobacco: 15; packs per day: 1; Cigarettes Per Day: half a pack; Second Hand Exposure: No; Do You Dip or Chew Tobacco: No; Hx Alcohol Use: No Hx Substance Use: No Preferred Language: Estonian Communication Ability: Effective Visual Impairment: No Limitations Pm Technician Required: No Beliefs That Will Affect Care: Anglican Anglican Beliefs: Mosque: Refusal of Blood Transfusion marital status: Current Living Situation: Spouse and Family Current Living Situation Comment: and son current occupational status: disabled How many Children do You have: 6 Other Information That Helps Us Care for You: No Feels Safe at Home: Yes Childhood Exposure to Second-Hand Smoke: Yes Diet: diabetic and regular caffeine: Yes (Coffee) Dental Care, Regularly: No Physical Activity Frequency: Daily Physical Activity Frequency Comment: Daily housework/activites Seatbelt Use: always Sunscreen Use: No Assistive Devices: None Physical Exam Physical Exam: Gen.: No acute distress. Somnolent on BiPAP but arousable to verbal stimuli. HEENT: Anicteric sclera. Neck: Thick neck and difficult exam on bipap. Cardiac: Regular. Normal S1-S2. Systolic murmur difficult to characterize in current state. Pulmonary: Occasional coarse breath sounds. No rales. Abdomen: Soft, nontender, nondistended, with normoactive bowel sounds. No bruits noted. Extremities: 2+ radial pulses bilaterally. 2+ posterior tibialis pulses bilaterally. 1-2+ bilateral lower extremity edema to the knees. No cyanosis. Results & Data Vital Signs (Past 12 Hours) Vital Signs Temp Pulse Pulse Resp BP BP Pulse Ox 06/27/24 09:40 103 H 26 H 148/105 H 96 06/27/24 09:35 106 H 24 159/111 H 97 06/27/24 09:31 101 H 26 H 193/114 H 97 06/27/24 09:25 102 H 24 163/103 H 95 06/27/24 09:20 99 H 24 148/97 H 94 06/27/24 09:15 97 H 24 155/109 H 94 06/27/24 09:10 98 H 24 142/93 H 93 06/27/24 09:05 100 H 24 128/94 06/27/24 09:00 102 H 26 H 144/98 H 93 06/27/24 08:55 106 H 24 146/97 H 93 06/27/24 08:50 111 H 25 H 141/114 H 92 06/27/24 08:47 110 H 25 H 125/98 91 06/27/24 08:45 91 06/27/24 08:42 114 H 28 H 148/112 H 91 06/27/24 08:36 118 H 26 H 148/112 H 92 06/27/24 08:31 117 H 28 H 183/138 H 93 06/27/24 08:28 113 H 28 H 165/118 H 93 06/27/24 08:23 121 H 30 H 187/127 H 95 06/27/24 08:18 120 H 28 H 187/117 H 96 06/27/24 07:31 121 H 20 202/139 H 100 06/27/24 07:18 115 H 25 H 100 06/27/24 07:14 114 H 22 192/131 H 100 06/27/24 06:45 95 H 21 178/144 H 95 06/27/24 06:40 36.9 C 96 H 24 178/144 H 96 06/27/24 06:38 91 06/27/24 06:34 103 H 06/27/24 06:30 95 H 24 174/147 H 96 06/27/24 06:28 O2 Del Method O2 Flow Rate FiO2 06/27/24 09:40 BiPAP 40 06/27/24 09:35 BiPAP 40 06/27/24 09:31 BiPAP 40 06/27/24 09:25 BiPAP 40 06/27/24 09:20 BiPAP 40 06/27/24 09:15 BiPAP 40 06/27/24 09:10 BiPAP 40 06/27/24 09:05 Room Air, BiPAP 40 06/27/24 09:00 BiPAP 40 06/27/24 08:55 BiPAP 40 06/27/24 08:50 BiPAP 40 06/27/24 08:47 BiPAP 40 06/27/24 08:45 40 06/27/24 08:42 BiPAP 40 06/27/24 08:36 BiPAP 40 06/27/24 08:31 BiPAP 40 06/27/24 08:28 BiPAP 40 06/27/24 08:23 BiPAP 40 06/27/24 08:18 BiPAP 40 06/27/24 07:31 BiPAP 06/27/24 07:18 45 06/27/24 07:14 BiPAP 06/27/24 06:45 6 06/27/24 06:40 Nasal Cannula 6 06/27/24 06:38 Nasal Cannula 0 06/27/24 06:34 06/27/24 06:30 6 06/27/24 06:28 Nasal Cannula 6 Intake & Output 06/25/24 06/26/24 06/27/24 06/28/24 06:59 06:59 06:59 06:59 Intake Total 47.25 / 47.25 Balance 47.25 / 47.25 Weight 212 lb 4.882 oz Laboratory Results Laboratory Results - last 24 hr 06/27/24 06/27/24 06/27/24 06:30 07:41 07:45 WBC 5.16 RBC 4.55 Hgb 13.8 POC Hgb Hct 42.0 POC Hct MCV 92.3 MCH 30.3 MCHC 32.9 RDW Std Deviation 59.4 H RDW Coeff of Chanel 18.0 H Plt Count 179 MPV 10.3 Immature Gran % (Auto) 1.2 Neut % (Auto) 75.7 Lymph % (Auto) 13.4 Meigs % (Auto) 8.3 Eos % (Auto) 1.0 Baso % (Auto) 0.4 Neut # (Auto) 3.91 Lymph # (Auto) 0.69 L Meigs # (Auto) 0.43 Eos # (Auto) 0.05 Baso # (Auto) 0.02 Immature Gran # (Auto) 0.06 PT 11.0 INR 1.0 APTT 33 H PTT Ratio 1.2 Specimen Type POC pH POC pCO2 POC pO2 POC HCO3 POC Total CO2 POC Base Excess POC ABG O2 Sat VBG pH 7.20 L VBG pCO2 73 H VBG pO2 52 VBG HCO3 29 VBG O2 Saturation 76.6 VBG Base Excess -1.7 POC Sodium Sodium 134 L POC Potassium Potassium 3.7 Chloride 96 L Carbon Dioxide 29 Anion Gap 9 BUN 12 Creatinine 0.84 Est Cr Clr Drug Dosing 78.1 eGFR 77.07 BUN/Creatinine Ratio 14.3 Glucose 147 H POC Glucose Calcium 10.5 H Total Bilirubin 0.7 AST 12 L ALT 7 Alkaline Phosphatase 65 Troponin I High Sens 80.6 H* B-Natriuretic Peptide 1179 H Total Protein 7.5 Albumin 4.2 Globulin 3.3 Albumin/Globulin Ratio 1.3 Procalcitonin PTH Intact 48.3 Urine Color Urine Appearance Urine pH Ur Specific [place] Urine Protein Urine Glucose (UA) Urine Ketones Urine Blood Urine Nitrite Urine Bilirubin Urine Urobilinogen Ur Leukocyte Esterase Nasal Screen MRSA (PCR) Urine Opiates Screen Ur Methadone, Qual Urine Fentanyl Screen Urine Barbiturates Ur Phencyclidine (PCP) U Amphetamin/Meth Scrn MDMA (Ecstasy) Screen U Benzodiazepines Scrn Ur Cocaine Metabolite U Marijuana (THC) Screen Adenovirus (PCR) Not Detected B. pertussis DNA (PCR) Not Detected B.parapertussis DNA PCR Not Detected C. pneumoniae DNA (PCR) Not Detected Coronavirus OC43 (PCR) Not Detected Coronavirus HKU1 (PCR) Not Detected Coronavirus 229E (PCR) Not Detected SARS-CoV-2 (PCR) Not Detected Coronavirus NL63 (PCR) Not Detected Human Metapneumovir PCR Not Detected Influenza Type A (PCR) Not Detected Influenza Type B (PCR) Not Detected M. pneumoniae (PCR) Not Detected Parainfluenza 1 (PCR) Not Detected Parainfluenza 2 (PCR) Not Detected Parainfluenza 3 (PCR) Not Detected Parainfluenza 4 (PCR) Not Detected RSV (PCR) Not Detected Entero/Rhino (PCR) Not Detected 06/27/24 06/27/24 06/27/24 07:47 08:33 09:30 WBC RBC Hgb POC Hgb 15.3 14.3 Hct POC Hct 45 42 MCV MCH MCHC RDW Std Deviation RDW Coeff of Chanel Plt Count MPV Immature Gran % (Auto) Neut % (Auto) Lymph % (Auto) Meigs % (Auto) Eos % (Auto) Baso % (Auto) Neut # (Auto) Lymph # (Auto) Meigs # (Auto) Eos # (Auto) Baso # (Auto) Immature Gran # (Auto) PT INR APTT PTT Ratio Specimen Type TUAN Arterial POC pH 7.20 L 7.29 L POC pCO2 70 H 56 H POC pO2 71 L 88 POC HCO3 28 H 27 H POC Total CO2 30 28 POC Base Excess 0.0 0.0 POC ABG O2 Sat 89.0 L 95.0 VBG pH VBG pCO2 VBG pO2 VBG HCO3 VBG O2 Saturation VBG Base Excess POC Sodium 132 L 133 L Sodium POC Potassium 4.1 3.5 Potassium Chloride Carbon Dioxide Anion Gap BUN Creatinine Est Cr Clr Drug Dosing eGFR BUN/Creatinine Ratio Glucose POC Glucose Calcium Total Bilirubin AST ALT Alkaline Phosphatase Troponin I High Sens B-Natriuretic Peptide Total Protein Albumin Globulin Albumin/Globulin Ratio Procalcitonin 0.05 PTH Intact Urine Color Urine Appearance Urine pH Ur Specific [place] Urine Protein Urine Glucose (UA) Urine Ketones Urine Blood Urine Nitrite Urine Bilirubin Urine Urobilinogen Ur Leukocyte Esterase Nasal Screen MRSA (PCR) Urine Opiates Screen Ur Methadone, Qual Urine Fentanyl Screen Urine Barbiturates Ur Phencyclidine (PCP) U Amphetamin/Meth Scrn MDMA (Ecstasy) Screen U Benzodiazepines Scrn Ur Cocaine Metabolite U Marijuana (THC) Screen Adenovirus (PCR) B. pertussis DNA (PCR) B.parapertussis DNA PCR C. pneumoniae DNA (PCR) Coronavirus OC43 (PCR) Coronavirus HKU1 (PCR) Coronavirus 229E (PCR) SARS-CoV-2 (PCR) Coronavirus NL63 (PCR) Human Metapneumovir PCR Influenza Type A (PCR) Influenza Type B (PCR) M. pneumoniae (PCR) Parainfluenza 1 (PCR) Parainfluenza 2 (PCR) Parainfluenza 3 (PCR) Parainfluenza 4 (PCR) RSV (PCR) Entero/Rhino (PCR) 06/27/24 06/27/24 06/27/24 09:38 10:18 11:59 WBC RBC Hgb POC Hgb Hct POC Hct MCV MCH MCHC RDW Std Deviation RDW Coeff of Chanel Plt Count MPV Immature Gran % (Auto) Neut % (Auto) Lymph % (Auto) Me[place] % (Auto) Eos % (Auto) Baso % (Auto) Neut # (Auto) Lymph # (Auto) [place] # (Auto) Eos # (Auto) Baso # (Auto) Immature Gran # (Auto) PT INR APTT PTT Ratio Specimen Type POC pH POC pCO2 POC pO2 POC HCO3 POC Total CO2 POC Base Excess POC ABG O2 Sat VBG pH VBG pCO2 VBG pO2 VBG HCO3 VBG O2 Saturation VBG Base Excess POC Sodium Sodium POC Potassium Potassium Chloride Carbon Dioxide Anion Gap BUN Creatinine Est Cr Clr Drug Dosing eGFR BUN/Creatinine Ratio Glucose POC Glucose 171 H Calcium Total Bilirubin AST ALT Alkaline Phosphatase Troponin I High Sens 706.2 H* D B-Natriuretic Peptide Total Protein Albumin Globulin Albumin/Globulin Ratio Procalcitonin PTH Intact Urine Color Urine Appearance Urine pH Ur Specific [place] Urine Protein Urine Glucose (UA) Urine Ketones Urine Blood Urine Nitrite Urine Bilirubin Urine Urobilinogen Ur Leukocyte Esterase Nasal Screen MRSA (PCR) Pending Urine Opiates Screen Ur Methadone, Qual Urine Fentanyl Screen Urine Barbiturates Ur Phencyclidine (PCP) U Amphetamin/Meth Scrn MDMA (Ecstasy) Screen U Benzodiazepines Scrn Ur Cocaine Metabolite U Marijuana (THC) Screen Adenovirus (PCR) B. pertussis DNA (PCR) B.parapertussis DNA PCR C. pneumoniae DNA (PCR) Coronavirus OC43 (PCR) Coronavirus HKU1 (PCR) Coronavirus 229E (PCR) SARS-CoV-2 (PCR) Coronavirus NL63 (PCR) Human Metapneumovir PCR Influenza Type A (PCR) Influenza Type B (PCR) M. pneumoniae (PCR) Parainfluenza 1 (PCR) Parainfluenza 2 (PCR) Parainfluenza 3 (PCR) Parainfluenza 4 (PCR) RSV (PCR) Entero/Rhino (PCR) 06/27/24 12:06 WBC RBC Hgb POC Hgb Hct POC Hct MCV MCH MCHC RDW Std Deviation RDW Coeff of Chanel Plt Count MPV Immature Gran % (Auto) Neut % (Auto) Lymph % (Auto) [place] % (Auto) Eos % (Auto) Baso % (Auto) Neut # (Auto) Lymph # (Auto) [place] # (Auto) Eos # (Auto) Baso # (Auto) Immature Gran # (Auto) PT INR APTT PTT Ratio Specimen Type POC pH POC pCO2 POC pO2 POC HCO3 POC Total CO2 POC Base Excess POC ABG O2 Sat VBG pH VBG pCO2 VBG pO2 VBG HCO3 VBG O2 Saturation VBG Base Excess POC Sodium Sodium POC Potassium Potassium Chloride Carbon Dioxide Anion Gap BUN Creatinine Est Cr Clr Drug Dosing eGFR BUN/Creatinine Ratio Glucose POC Glucose Calcium Total Bilirubin AST ALT Alkaline Phosphatase Troponin I High Sens B-Natriuretic Peptide Total Protein Albumin Globulin Albumin/Globulin Ratio Procalcitonin PTH Intact Urine Color Yellow Urine Appearance Clear Urine pH 5.5 Ur Specific [place] 1.019 Urine Protein Negative Urine Glucose (UA) 1+ H Urine Ketones Negative Urine Blood Negative Urine Nitrite Negative Urine Bilirubin Negative Urine Urobilinogen Negative Ur Leukocyte Esterase Negative Nasal Screen MRSA (PCR) Urine Opiates Screen Pending Ur Methadone, Qual Pending Urine Fentanyl Screen Pending Urine Barbiturates Pending Ur Phencyclidine (PCP) Pending U Amphetamin/Meth Scrn Pending MDMA (Ecstasy) Screen Pending U Benzodiazepines Scrn Pending Ur Cocaine Metabolite Pending U Marijuana (THC) Screen Pending Adenovirus (PCR) B. pertussis DNA (PCR) B.parapertussis DNA PCR C. pneumoniae DNA (PCR) Coronavirus OC43 (PCR) Coronavirus HKU1 (PCR) Coronavirus 229E (PCR) SARS-CoV-2 (PCR) Coronavirus NL63 (PCR) Human Metapneumovir PCR Influenza Type A (PCR) Influenza Type B (PCR) M. pneumoniae (PCR) Parainfluenza 1 (PCR) Parainfluenza 2 (PCR) Parainfluenza 3 (PCR) Parainfluenza 4 (PCR) RSV (PCR) Entero/Rhino (PCR) Diagnostic Findings Telemetry personally reviewed: Sinus tachycardia improving to normal sinus rhythm. No arrhythmia. Labs reviewed and notable for elevated high-sensitivity troponin, initially 80, increasing to 706. BNP elevated. Normal potassium, mild hyponatremia, normal renal function, nonelevated transaminase levels, normal TSH on 06/20/2024, normal blood counts. Nuclear stress report reviewed from 10/19/2023: Possible very small area of apical ischemia. EF 51%. Most recent echo report reviewed from 05/06/2024: Normal LV systolic function and wall motion. EF 55 to 60%. Moderate aortic stenosis. ECGs personally reviewed: ECG 06/28/2024 6:32 AM: Sinus tachycardia [address]/T wave abnormality. ECG 06/27/2024 at 11:03 AM: Sinus rhythm [address]/T wave abnormality. Prolonged QT. History and physical report reviewed. CTA chest report reviewed 05/02: No PE. Interstitial pulmonary edema with trace right and small left pleural effusions. Mild airspace opacities of the lung bases and subpleural lungs. Left perihilar fibrosis with unchanged masslike area of consolidation of the left lower lobe measuring 5 cm. Mild mediastinal and hilar lymphadenopathy increased in size from 05/06/2024 per radiology. Medications Administered Current Inpatient Medications Budesonide (Budesonide 0.5 Mg/2 Ml Vial (Pulmicort)) 0.5 mg NEB BID TANIA Stop: 07/27/24 20:59 Dextrose (Dextrose 50% 50 Ml Syringe) 25 - 50 ml IV UD PRN; Protocol PRN Reason: Hypoglycemia Protocol Stop: 07/27/24 09:43 Formoterol Fumarate (Formoterol 20 Mcg/2 Ml Vial) 20 mcg INH BIDR TANIA Stop: 07/27/24 18:59 Glucagon (Glucagon For Inj 1 Mg Vial) 1 mg SQ UD PRN; Protocol PRN Reason: Hypoglycemia Protocol Stop: 07/27/24 09:43 Glucose (Glucose 40% Gel 15 Gm Tube) 15 - 30 gm PO UD PRN; Protocol PRN Reason: Hypoglycemia Protocol Stop: 07/27/24 09:43 Glucose (Glucose 10 Tab/Tube) 4 - 8 tab PO UD PRN; Protocol PRN Reason: Hypoglycemia Protocol Stop: 07/27/24 09:43 Hydromorphone HCl (Hydromorphone Inj 0.5 Mg/0.5 Ml Syr) 0.5 mg IV Q3H PRN PRN Reason: Moderate Pain (4,5,6) on NRS Stop: 07/11/24 09:53 Hydromorphone HCl (Hydromorphone Inj 1 Mg/Ml Syringe) 1 mg IV Q3H PRN PRN Reason: Severe Pain (7,8,9,10) on NRS Stop: 07/11/24 09:53 Nitroglycerin/Dextrose (Nitroglycerin/D5w 100 Mcg/Ml) 250 mls @ 0 mls/hr IV .Q0M TANIA; Protocol Stop: 07/27/24 08:14 Last Titration: 06/27/24 10:43 Dose: 0 mcg/min, 0 mls/hr Acetaminophen (Ofirmev) 1,000 mg in 100 mls @ 400 mls/hr IV Q8H PRN PRN Reason: Fever/Mild Pain (Pain 1,2,3) Stop: 06/30/24 09:53 Doxycycline Hyclate 100 mg/ (Dextrose) 100 mls @ 50 mls/hr IV Q12H [facility] Stop: 07/02/24 10:59 Last Admin: 06/27/24 11:49 Dose: 50 mls/hr Bumetanide 1 mg/ Syringe 4 mls @ 4 mls/min IV BID17 [facility] Stop: 07/27/24 16:59 Heparin Sodium/Dextrose (Heparin Sodium/Dextrose) 25,000 units in 500 mls @ 18 mls/hr IV .Q24H [facility]; Protocol Stop: 07/27/24 11:44 Last Admin: 06/27/24 12:26 Dose: 900 units/hr, 18 mls/hr Insulin Aspart (Insulin Aspart Per Unit Charge) 0 units SC Q6 [facility] Stop: 07/27/24 11:29 Last Admin: 06/27/24 12:18 Dose: 1 units Isosorbide Mononitrate (Isosorbide [place] Extended Rel 30 Mg Tabcr) 30 mg PO QAM [facility] Stop: 07/28/24 08:59 Lorazepam (Lorazepam 2 Mg/1 Ml Vial) 0.5 mg IV Q8H PRN PRN Reason: Anxiety/Agitation Stop: 07/27/24 09:53 Metoprolol Succinate (Metoprolol Succ 50mg Ext Rel Tab) 50 mg PO DAILY [facility] Stop: 07/28/24 08:59 Miscellaneous (Carbohydrates For Hypoglycemia ) 15 - 30 gm PO UD PRN PRN Reason: Hypoglycemia Protocol Stop: 07/27/24 09:43 Miscellaneous (Remove Nicoderm Patch) 1 each N/A DAILY@0859 [facility] Stop: 07/28/24 08:58 Multi-Ingredient Mouthwash/Gargle (First - Mouthwash Blm 119 Ml) 10 ml MT ACHS PRN PRN Reason: dysphagia Stop: 07/27/24 09:50 Nicotine (Nicotine 21 Mg/24 Hr Tdsy) 1 patch TD [facility] Stop: 07/28/24 08:59 Olanzapine (Olanzapine 2.5 Mg Tab) 2.5 mg PO DAILY PRN PRN Reason: Nausea And Vomiting Stop: 07/27/24 09:50 Ondansetron HCl (Ondansetron Inj 2 Mg/Ml 2 Ml Vial) 4 mg IV Q6H [facility] Stop: 07/27/24 09:59 Last Admin: 06/27/24 11:49 Dose: 4 mg Pantoprazole Sodium (Pantoprazole 40 Mg Tab) 40 mg PO QAM [facility] Stop: 07/28/24 08:59 Pregabalin (Pregabalin 150 Mg Cap) 150 mg PO TID [facility] Stop: 07/27/24 20:59 Ranolazine (Ranolazine 500 Mg Er Tab) 500 mg PO BID [facility] Stop: 07/27/24 20:59 Umeclidinium [place] (Umeclidinium [place] 62.5mcg/Blister 7 Puffs/Inhaler) 1 puffs INH DAILY TANIA Stop: 07/28/24 08:59 PG Care Time/CCT Total # of Minutes Spent Total Time Spent with Patient: Total time spent is greater than 50% in coordination of care (as documented) at patient's floor/unit and/or counseling patient: Critical Care Time: Yes Total Critical Care Time: 45 Coding Level of Care Code 83834 CRITICAL CARE 1ST 30-74M Diagnoses Acute on chronic heart failure with preserved ejection fraction (HFpEF) I50.33 Non-ST elevation CT (NSTEMI) I21.4 Aortic stenosis I35.0 CAD (coronary artery disease) I25.10 S/P coronary artery stent placement Z95.5 Paroxysmal atrial fibrillation I48.0 Tobacco dependence F17.200 Hypertensive emergency I16.1 Additional Codes Critical Care Time - Critical Care Time: Yes ([id number])
[2024-06-27] MEDS ORDERED: Nursing to Pharmacy Communication SCH (11:45)
[2024-06-27] MEDS: ONDANSETRON INJ 2 MG/ML 2 ML VIAL IV SCH (11:49)
[2024-06-27] MEDS: DOXYCYCLINE HYCLATE 100 MG in DEXTROSE 5% MINI-B 100 ML IV SCH (11:49)
[2024-06-27 12:07] LABS: Partial Thromboplastin Ratio 1.2; Partial Thromboplastin Time 33 Seconds (21-31)
[2024-06-27] MEDS: INSULIN ASPART PER UNIT CHARGE SC SCH ×2 (12:08→12:18)
[2024-06-27 12:18] LABS: Appearance Urine Clear (Clear); Bilirubin Urine Negative (Negative); Blood Urine Negative (Negative); Color Urine Yellow; Glucose Urine UA 1+ (Negative); Ketones Urine Negative (Negative); Leukocyte Esterase Urine Negative (Negative); Nitrite Urine Negative (Negative); Protein Urine Negative (Negative); Specific Gravity Urine 1.019 (1.000-1.030); Urobilinogen Urine Negative (Negative); pH Urine 5.5 (4.5-7.5)
[2024-06-27] MEDS: Heparin IV Adult Wt-Based Low-Dose *NO* INITIAL Bolus Protocol IV STA (12:26)
[2024-06-27] MEDS: HEPARIN SODIUM/DEXTROSE 25,000 UNITS/500 ML BAG IV SCH (12:26)
[2024-06-27] MEDS: ICU Protocol for HYPERglycemia SCH (12:30)
[2024-06-27 12:45] LABS: Amphetamines+Metham, Urine Neg (Neg); Barbiturates, Urine Neg (Neg); Benzodiazepine, Urine Neg (Neg); Cocaine, Urine Neg (Neg); Fentanyl, Urine Pos (Neg); MDMA (Ecstacy), Urine Neg (Neg); Marijuana, Urine Neg (Neg); Methadone, Urine Neg (Neg); Opiate, Urine Pos (Neg); Phencyclidine, Urine Neg (Neg)
[2024-06-27] MEDS: ASPIRIN CHEW 324 MG PO STA ×2 (15:43→17:45)
[2024-06-27] MEDS ORDERED: BUMETANIDE 1 MG in SYRINGE 0 ML IV SCH (17:00)
--- NOTE | 2024-06-27 17:13 | XCELERA ---
[id number]
[2024-06-27] MEDS: BUMETANIDE 1 MG in SYRINGE 0 ML IV SCH (17:45)
[2024-06-27] MEDS: HYDROmorphone INJ 0.5 MG/0.5 ML SYR IV PRN (17:46)
--- NOTE | 2024-06-27 18:16 | Electrocardiogram Report ---
Test Reason : Blood Pressure : */* mmHG Vent. Rate : 84 BPM Atrial Rate : 84 BPM P-R Int : 164 ms QRS Dur : 104 ms QT Int : 418 ms P-R-T Axes : 32 55 122 degrees QTcB Int : 493 ms Normal sinus rhythm Prolonged QT Abnormal ECG When compared with ECG of 27-Jun-2024 06:32, ST less depressed in Lateral leads T wave inversion no longer evident in Inferior leads Confirmed by Brian Lizama [id number]) on 06/27/2024 6:16:27 PM Referred By: REFERRED SELF Confirmed By: Brian Lizama
[2024-06-27 19:42] LABS: ANTI-Xa, UFH(UnfractionatedHep 0.76 IU/ml (0.3-0.7)
[2024-06-27] MEDS: PREGABALIN 150 MG CAP PO SCH (20:08)
[2024-06-27] MEDS: RANOLAZINE 500 MG ER TAB PO SCH (20:08)
[2024-06-27] MEDS: BUDESONIDE 0.5 MG/2 ML VIAL (PULMICORT) NEB SCH (20:16)
[2024-06-27] MEDS: FORMOTEROL 20 MCG/2 ML VIAL INH SCH (20:16)
[2024-06-27] MEDS ORDERED: APIXABAN 5 MG TABLET PO SCH (21:00)
[2024-06-27] MEDS: LORazepam 2 MG/1 ML VIAL IV PRN (21:06)
[2024-06-27] MEDS: LORazepam 0.5 MG TAB PO STA (21:41)
[2024-06-28 02:10] LABS: Base Excess VBG 6.4 mEq/L; HCO3 VBG 31 mmol/L; Oxygen Saturation VBG 82.6 %; PCO2 VBG 45 mmHg (38-50); PO2 VBG 50 mmHg; pH VBG 7.45 (7.36-7.41)
[2024-06-28 02:12] LABS: Basophils # (auto) 0.01 K/uL (0.00-0.20); Basophils % (auto) 0.2 %; Eosinophils # (auto) 0.02 K/uL (0.00-0.50); Eosinophils % (auto) 0.4 %; Hematocrit (blood only) 34.1 % (37.0-47.0); Hemoglobin 11.2 g/dl (12.0-16.0); Immature Granulocytes # (auto) 0.04 K/uL (0.01-0.20); Immature Granulocytes % (auto) 0.9 %; Lymphocytes # (auto) 0.65 K/uL (1.20-3.40); Lymphocytes % (auto) 14.3 %; Mean Corpuscular Hemoglobin 30.1 pg (25.0-34.0); Mean Corpuscular Hgb Conc 32.8 g/dL (32.0-36.0); Mean Corpuscular Volume 91.7 fL (80.0-100.0); Mean Platelet Volume 10.9 fL (9.4-12.4); Monocytes # (auto) 0.52 K/uL (0.11-0.59); Monocytes % (auto) 11.5 %; Neutrophils # (auto) 3.29 K/uL (1.40-6.50); Neutrophils % (auto) 72.7 %; Platelet Count 154 K/uL (130-400); RDW Standard Deviation 59.5 fL (36.4-46.3); Red Blood Count 3.72 M/uL (4.20-5.40); White Blood Count 4.53 K/ul (4.8-10.8)
[2024-06-28 02:28] LABS: BUN Creatinine Ratio 13.6 (10-20); Calcium 9.3 mg/dl (8.6-10.3); Creatinine Clr Calc Pharmacy 80.1 ml/min; Magnesium 1.6 mg/dl (1.7-2.4); Potassium 3.4 mmol/L (3.5-5.1)
[2024-06-28 02:34] LABS: Troponin I High Sensitivity 2470.3 pg/ml (0-14)
[2024-06-28 04:40] LABS: Phosphorus 3.9 mg/dl (2.5-4.9)
[2024-06-28] MEDS: ACETAMINOPHEN 1,000 MG/100 ML VIAL IV PRN (05:58)
[2024-06-28] MEDS: MAGNESIUM SULFATE / D5W 1 GM/100 ML BAG IV SCH (06:59)
[2024-06-28] MEDS: POTASSIUM CHLORIDE CRTAB 20 MEQ TABCR PO STA ×2 (06:59→08:55)
--- NOTE | 2024-06-28 07:18 | Critical Care Progress Note ---
Date of Service June 28, 2024 Assessment & Plan (1) Hypertensive emergency: (2) Acute on chronic heart failure with preserved ejection fraction (HFpEF): (3) Paroxysmal atrial fibrillation: (4) Aortic stenosis: (5) Diabetes mellitus, type 2: (6) Acute decompensated heart failure: (7) Tobacco dependence: (8) COPD with acute exacerbation: (9) Non-ST elevation MA (NSTEMI): (10) Metabolic encephalopathy: (11) Small cell lung cancer in adult: (12) Anxiety: (13) Acute on chronic respiratory failure with hypoxia and hypercapnia: (14) Lung cancer metastatic to brain: Plan Reason Critically Ill: 64-year-old female being admitted to the hospital for shortness of breath. Being transferred to the ICU as she was on nitro drip Past medical history: Hypertension, hypothyroidism, diabetes, GERD, small cell lung cancer metastatic, diagnosed 10/30 PFT 10/13/2023 personally reviewed: Moderate severe obstruction, insignificant bronchodilator response, lung volumes are not accurate, moderate decrease in DLCO FVC 1.65 L 46%, FEV1 1.15 L 42%, FEV1/FVC 70%, DLCO 59% Neuro - [facility] ICU: Negative --Metabolic encephalopathy Secondary to hypercapnia TSH within normal limit on 06/20/2024 Glucose, sodium within normal limit Calcium a bit on the higher side PTH is within normal limit UDS positive for opioid and fentanyl --Anxiety Takes lorazepam at home as needed Cardiac - --Hypertensive emergency With acute HFpEF BNP 1179 Respiratory BioFire negative for everything on 06/27/2024 S/p nitro drip Continue with diuresis --Elevated troponin Likely type II MA Follow-up 2D echo Cardiology on board EKG 06/27/2024 6:32 AM: Sinus tachycardia, normal axis, ST depressions appreciated on the lateral leads V4-V6 -- A-fib On apixaban Respiratory - CTA chest 06/27/2024 personally reviewed: Motion degraded study Interlobular thickening appreciated bilaterally upper and lower lobes Left lower lobe 4.9 cm opacity Small bilateral pleural effusion Elevated left hemidiaphragm Minimal mediastinal lymphadenopathy -- Acute on chronic hypercapnic hypoxic respiratory failure Multifactorial Hypoxia is likely from pulmonary edema Hypercapnia could be from medications, she takes lorazepam at home for anxiety, she is on chronic opioids at home as well, she also uses marijuana on a regular basis UDS was positive for opioid and fentanyl --COPD with emphysema Gold E Currently on Incruse along with nebulized budesonide and formoterol Along with as needed albuterol PFT 10/13/2023 personally reviewed: Moderate severe obstruction, insignificant bronchodilator response, lung volumes are not accurate, moderate decrease in DLCO FVC 1.65 L 46%, FEV1 1.15 L 42%, FEV1/FVC 69%, DLCO 59%, DLCO/VA 90% Absolute eosinophil count 110 on 05/26/2023 -- 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 4.7 cm x 2.1 cm, no previous CT of the chest to compare S/p 2 cycles of chemo (Carboplatin, etoposide and atezolizumab with Trilaciclib) and radiation On maintenance atezolizumab 2D echo 05/27/2023: EF 55-60%, moderate concentric LVH, grade 1 diastolic dysfunction, mild to moderate aortic stenosis -- Current smoker >60 pack-year smoking history, currently smoking a pack a day -- Obesity Advised to lose weight diet and exercise GI - -- No acute issues RENAL/LYTES - -- Monitor BUN/creatinine Avoid nephrotoxic medication - -- Henderson for strict in and out ENDO - -- Hypercalcemia --> resolved Calcium 10.5 with albumin 4.2 on presentation, normalized following that PTH within normal limit, this goes with primary hyperparathyroidism --ICU hypoglycemia protocol HEME - -- Normocytic anemia Monitor H&H ID - -- No clear source of infection Procalcitonin 0.05 Continue with doxycycline for COPD exacerbation --Prophylaxis VTE: Heparin drip GI: Pantoprazole Lines: Peripheral Diet: N.p.o. Plan: In/out: -1.1 L, urine output 1880 Potassium and magnesium being replaced Continue with bumetanide 1 mg twice daily Plan is for the patient to have cardiac cath today. Case discussed with cardiology Due to chronic respiratory failure consequent to COPD, it is causing recurrent hypercapnic respiratory failure with a PaCo2 of 70 patient now requires a noninvasive home ventilator. Bilevel therapy with and without a rate would be ineffective as patient requires a volume targeted mode. Patient would benefit greatly from noninvasive ventilation which would improve lung function and potentially reduce worsening of symptoms. A BiPAP would be ineffective as patient requires a volume targeted mode. Interruption of ventilator support would lead to a decline of health status. NIMV settings should be AVAPS-AE; Breath rate: auto; Inspiratory time:auto; Sigh: off; Tidal Volume: 350-450, PS min: 4-10 PS max: 12-20; EPAP min: 6-10; EPAP max: 10-16; AVAPS rate: 14 during sleep and as needed Patient does have history of anxiety for which she takes lorazepam, she also takes opioids on a regular basis If she is anxious okay to give lorazepam but would want her to be on BiPAP following that given the hypercapnia Please note the above document was generated using voice recognition software. It may contain grammatical, syntax or spelling errors.Any formal questions or concerns about the content, text or information contained within the body of this dictation should be directly addressed to the provider for clarification. Admission and Anticipated Discharge Date Admission Date: June 27, 2024 Review of Systems 2 Review of Systems: All systems reviewed & are unremarkable except as noted in Subjective Physical Exam 2 Physical Exam: Constitutional: Distress HEENT: EOMI, PERRLA Respiratory system: Decreased air entry bilaterally, no wheeze, no rhonchi, positive crackles bilaterally, L>R CVS: S1-S2 positive, 2 out of 6 systolic murmur appreciated best at aorta Abdomen: Soft, nontender, nondistended, positive bowel sounds x4 Extremities: +2 pulses bilaterally radialis/ dorsalis pedis, no cyanosis, +2 pitting edema bilateral lower extremity Neuro: Awake alert oriented x 3 Psych: Normal mood and affect G/U: Positive Henderson Skin: no rashes, warm and dry Lymphatic: no cervical or axillary lymphadenopathy Results & Data Results & Data Vital Signs (Past 12 Hours) Vital Signs Temp Pulse Pulse Resp BP BP Pulse Ox 06/28/24 06:30 86 19 134/79 96 06/28/24 05:00 37.0 C 84 18 140/79 94 06/28/24 04:00 37 C 75 19 141/83 H 94 06/28/24 03:00 77 14 130/70 94 06/28/24 02:30 79 18 94 06/28/24 02:00 37.2 C 80 18 138/81 94 06/28/24 01:00 37.2 C 83 18 132/78 94 06/28/24 00:00 74 06/28/24 00:00 36.5 C 70 16 118/62 95 06/28/24 00:00 37.2 C 79 22 129/73 93 06/27/24 23:00 37.2 C 80 19 128/75 93 06/27/24 22:00 06/27/24 22:00 37.3 C 81 23 125/68 93 06/27/24 21:45 37.3 C 84 20 128/75 92 06/27/24 21:20 85 21 94 06/27/24 20:22 86 18 96 06/27/24 19:30 37.4 C 88 19 133/87 93 O2 Del Method O2 Flow Rate FiO2 06/28/24 06:30 Nasal Cannula 2 06/28/24 05:00 Nasal Cannula 2 06/28/24 04:00 BiPAP 25 06/28/24 03:00 BiPAP 25 06/28/24 02:30 25 06/28/24 02:00 BiPAP 25 06/28/24 01:00 BiPAP 25 06/28/24 00:00 06/28/24 00:00 Nasal Cannula 2 06/28/24 00:00 BiPAP 25 06/27/24 23:00 BiPAP 25 06/27/24 22:00 BiPAP 25 06/27/24 22:00 BiPAP 25 06/27/24 21:45 BiPAP 25 06/27/24 21:20 25 06/27/24 20:22 Nasal Cannula 3 06/27/24 19:30 Nasal Cannula 2 Laboratory Results 06/28/24 01:55 06/28/24 01:55 Coding Level of Care Code 00384 SUB INP/OBS CARE 3/50MIN Diagnoses Hypertensive emergency I16.1 Acute on chronic heart failure with preserved ejection fraction (HFpEF) I50.33 Paroxysmal atrial fibrillation I48.0 Aortic stenosis I35.0 Diabetes mellitus, type 2 E11.9 Acute decompensated heart failure I50.9 Tobacco dependence F17.200 COPD with acute exacerbation J44.1 Non-ST elevation MA (NSTEMI) I21.4 Metabolic encephalopathy G93.41 Small cell lung cancer in adult C34.90 Anxiety F41.9 Acute on chronic respiratory failure with hypoxia and hypercapnia J96.21; J96.22 Lung cancer metastatic to brain C34.90; C79.31
[2024-06-28] MEDS: FIRST - Mouthwash BLM 119 ML MT PRN (08:56)
[2024-06-28] MEDS: NICOTINE 21 MG/24 HR TDSY TD SCH (08:56)
[2024-06-28] MEDS: UMECLIDINIUM BROMIDE 62.5MCG/BLISTER 7 PUFFS/INHALER INH SCH (08:56)
[2024-06-28] MEDS: LORazepam 2 MG/1 ML VIAL IV PRN (08:58)
[2024-06-28] MEDS: PANTOprazole 40 MG TAB PO SCH (08:59)
[2024-06-28] MEDS: ASPIRIN 81 MG ECTAB PO SCH (08:59)
[2024-06-28] MEDS: ISOSORBIDE MONO EXTENDED REL 30 MG TABCR PO SCH (08:59)
[2024-06-28] MEDS: ATORVASTATIN 40 MG TAB PO SCH (08:59)
[2024-06-28] MEDS: METOPROLOL SUCC 50MG EXT REL TAB PO SCH (08:59)
[2024-06-28] MEDS ORDERED: BUMETANIDE 1 MG in SYRINGE 0 ML IV SCH (09:00)
[2024-06-28] MEDS: HYDROmorphone INJ 1 MG/ML SYRINGE IV PRN (09:18)
--- NOTE | 2024-06-28 10:05 | Cardiology Progress Note ---
Date of Service June 28, 2024 Assessment & Plan (1) Acute HFrEF (heart failure with reduced ejection fraction): (2) Non-ST elevation OK (NSTEMI): (3) Cardiomyopathy: (4) Aortic stenosis: (5) CAD (coronary artery disease): (6) S/P coronary artery stent placement: (7) Paroxysmal atrial fibrillation: (8) Tobacco dependence: (9) Hypertensive emergency: Plan ASSESSMENT/PLAN: 1. Acute heart failure with reduced EF: Volume status much improved. Continue diuresis. Monitor electrolytes and renal function. Continue metoprolol succinate. Will initiate low-dose Entresto and spironolactone. Can consider SGLT2 inhibitor if no contraindication in the future. Low-sodium diet. Strict I's and O's. Daily weights. Recommend heart failure program on discharge. 2. CAD s/p PCI/NSTEMI: PCI details unknown. She gives a history of crescendo angina. Had NSTEMI. Troponin elevation likely due to demand ischemia in the setting of hypertension, respiratory failure, CHF, and in the setting of CAD. Continue aspirin. Continue beta-brianna. On Ranexa chronically. Continue high intensity statin therapy. Recommend cardiac catheterization. Risk and benefits were discussed with her and with her at the bedside. They were made aware that CT surgery is not available at this facility. She is agreeable to proceed with cardiac catheterization later today when the lab is available. She is already NPO. 3. Aortic stenosis: Moderate to severe. Cardiac cath later today. 4. Paroxysmal atrial fibrillation: Sinus rhythm today. Continue beta-brianna. Continue anticoagulation for stroke risk reduction if no contraindication. Continue heparin drip for now. Chronically on Eliquis. 5. Hypertension: Severely hypertensive in the ER on presentation. Blood pressure now normotensive. Continue current plan. 6. Dyslipidemia: Continue high intensity statin therapy. 7. 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 Follows with oncology. 8. Hypertensive emergency: As above. Now normotensive. 9. Acute on chronic hypercapnic hypoxic respiratory failure: Hypervolemic presentation, improved with intravenous diuretic therapy. BiPAP has been discontinued. Has known COPD with emphysema. As per critical care team. 10. Tobacco abuse: Smoking cessation. 11. Disposition: Cardiology will continue to follow. Patient care communicated with primary hospitalist, Dr. Estrella, and critical care attending, Dr. Lilly. Highly complex medical issues. Admission and Anticipated Discharge Date Admission Date: June 27, 2024 Subjective Patient seen this morning. Breathing is much improved. She is now off of BiPAP. Breathing is not yet back to baseline. She is currently chest pain-f ree. Her chest discomfort however that she has been experiencing over the past several weeks or months has been increasing in frequency. It was even worse in the past week, prompting nitroglycerin use. It is a substernal chest discomfort, reminiscent of her previous angina. She denies syncope, near syncope, palpitations. Edema has improved. Her and son presented to the bedside. Physical Exam Physical Exam: Gen.: No acute distress. Alert. Oriented. HEENT: Anicteric sclera. Neck: No obvious JVD. Cardiac: Regular. Normal S1-S2. 2/6 mid-to-late peaking systolic ejection murmur. Pulmonary: Decreased breath sounds but clear to auscultation bilaterally. Abdomen: Soft, nontender, nondistended, with normoactive bowel sounds. No bruits noted. Extremities: 2+ radial pulses bilaterally. 2+ posterior tibialis pulses bilaterally. Trace bilateral lower extremity edema. No cyanosis. Results & Data Vital Signs (Past 12 Hours) Vital Signs Temp Pulse Pulse Resp BP Pulse Ox O2 Del Method 06/28/24 10:00 36.8 C 66 17 94 06/28/24 10:00 127/75 06/28/24 09:00 135/76 06/28/24 09:00 36.8 C 73 22 93 06/28/24 08:00 139/77 06/28/24 07:51 36.9 C 90 19 92 Nasal Cannula 06/28/24 07:37 84 20 96 Nasal Cannula 06/28/24 07:12 37.0 C 89 20 94 06/28/24 07:00 145/93 H 06/28/24 06:30 86 19 134/79 96 Nasal Cannula 06/28/24 05:00 37.0 C 84 18 140/79 94 Nasal Cannula 06/28/24 04:00 37 C 75 19 141/83 H 94 BiPAP 06/28/24 03:00 77 14 130/70 94 BiPAP 06/28/24 02:30 79 18 94 06/28/24 02:00 37.2 C 80 18 138/81 94 BiPAP 06/28/24 01:00 37.2 C 83 18 132/78 94 BiPAP 06/28/24 00:00 74 06/28/24 00:00 36.5 C 70 16 118/62 95 Nasal Cannula 06/28/24 00:00 37.2 C 79 22 129/73 93 BiPAP 06/27/24 23:00 37.2 C 80 19 128/75 93 BiPAP O2 Flow Rate FiO2 06/28/24 10:00 06/28/24 10:00 06/28/24 09:00 06/28/24 09:00 06/28/24 08:00 06/28/24 07:51 2 06/28/24 07:37 2 06/28/24 07:12 06/28/24 07:00 06/28/24 06:30 2 06/28/24 05:00 2 06/28/24 04:00 25 06/28/24 03:00 25 06/28/24 02:30 25 06/28/24 02:00 25 06/28/24 01:00 25 06/28/24 00:00 06/28/24 00:00 2 06/28/24 00:00 25 06/27/24 23:00 25 Intake & Output 06/26/24 06/27/24 06/28/24 06/29/24 06:59 06:59 06:59 06:59 Intake Total 604.433 / 604.433 300.283 / 300.283 Output Total 1880 / 1880 100 / 100 Balance -1275.567 / -1275.567 200.283 / 200.283 Weight 212 lb 4.882 oz 206 lb 9.17 oz Laboratory Results Laboratory Results - last 24 hr 06/27/24 06/27/24 06/27/24 06:30 07:47 09:38 WBC RBC Hgb Hct MCV MCH MCHC RDW Std Deviation RDW Coeff of Chanel Plt Count MPV Immature Gran % (Auto) Neut % (Auto) Lymph % (Auto) Bureau % (Auto) Eos % (Auto) Baso % (Auto) Neut # (Auto) Lymph # (Auto) Bureau # (Auto) Eos # (Auto) Baso # (Auto) Immature Gran # (Auto) PT 11.0 INR 1.0 APTT 33 H PTT Ratio 1.2 Heparin Anti-Xa, Unfract VBG pH VBG pCO2 VBG pO2 VBG HCO3 VBG O2 Saturation VBG Base Excess Sodium Potassium Chloride Carbon Dioxide Anion Gap BUN Creatinine Est Cr Clr Drug Dosing eGFR BUN/Creatinine Ratio Glucose POC Glucose Calcium Phosphorus Magnesium Troponin I High Sens 706.2 H* D Procalcitonin 0.05 PTH Intact 48.3 Urine Color Urine Appearance Urine pH Ur Specific [place] Urine Protein Urine Glucose (UA) Urine Ketones Urine Blood Urine Nitrite Urine Bilirubin Urine Urobilinogen Ur Leukocyte Esterase Nasal Screen MRSA (PCR) Urine Opiates Screen U Codeine Confrm GC/MS Ur Morphine (GC/MS) Ur Hydrocodone (GC/MS) Ur Norhydrocodone Ur Noroxycodone Urine Oxycodone (GC/MS) U Oxymorphone GC/MS Ur Methadone, Qual Ur Hydromorphone (GC/MS) Fentanyl Comments Drug Monitor Fentanyl Fentanyl Confirmation Drug Monitor Norfentanyl Urine Fentanyl Screen Ur Norfentanyl Confirm Urine Barbiturates Ur Phencyclidine (PCP) U Amphetamin/Meth Scrn MDMA (Ecstasy) Screen U Benzodiazepines Scrn Ur Cocaine Metabolite U Marijuana (THC) Screen Drug Screen Comment Toxicology Comment Drug Monitor Historic Res 06/27/24 06/27/24 06/27/24 10:18 11:59 12:06 WBC RBC Hgb Hct MCV MCH MCHC RDW Std Deviation RDW Coeff of Chanel Plt Count MPV Immature Gran % (Auto) Neut % (Auto) Lymph % (Auto) Bureau % (Auto) Eos % (Auto) Baso % (Auto) Neut # (Auto) Lymph # (Auto) Bureau # (Auto) Eos # (Auto) Baso # (Auto) Immature Gran # (Auto) PT INR APTT PTT Ratio Heparin Anti-Xa, Unfract VBG pH VBG pCO2 VBG pO2 VBG HCO3 VBG O2 Saturation VBG Base Excess Sodium Potassium Chloride Carbon Dioxide Anion Gap BUN Creatinine Est Cr Clr Drug Dosing eGFR BUN/Creatinine Ratio Glucose POC Glucose 171 H Calcium Phosphorus Magnesium Troponin I High Sens Procalcitonin PTH Intact Urine Color Yellow Urine Appearance Clear Urine pH 5.5 Ur Specific [place] 1.019 Urine Protein Negative Urine Glucose (UA) 1+ H Urine Ketones Negative Urine Blood Negative Urine Nitrite Negative Urine Bilirubin Negative Urine Urobilinogen Negative Ur Leukocyte Esterase Negative Nasal Screen MRSA (PCR) Negative Urine Opiates Screen Pos H U Codeine Confrm GC/MS Pending Ur Morphine (GC/MS) Pending Ur Hydrocodone (GC/MS) Pending Ur Norhydrocodone Pending Ur Noroxycodone Pending Urine Oxycodone (GC/MS) Pending U Oxymorphone GC/MS Pending Ur Methadone, Qual Neg Ur Hydromorphone (GC/MS) Pending Fentanyl Comments Pending Drug Monitor Fentanyl Pending Fentanyl Confirmation Pending Drug Monitor Norfentanyl Pending Urine Fentanyl Screen Pos H Ur Norfentanyl Confirm Pending Urine Barbiturates Neg Ur Phencyclidine (PCP) Neg U Amphetamin/Meth Scrn Neg MDMA (Ecstasy) Screen Neg U Benzodiazepines Scrn Neg Ur Cocaine Metabolite Neg U Marijuana (THC) Screen Neg Drug Screen Comment Pending Toxicology Comment Pending Drug Monitor Historic Res Pending 06/27/24 06/27/24 06/27/24 15:54 18:01 18:32 WBC RBC Hgb Hct MCV MCH MCHC RDW Std Deviation RDW Coeff of Chanel Plt Count MPV Immature Gran % (Auto) Neut % (Auto) Lymph % (Auto) Bureau % (Auto) Eos % (Auto) Baso % (Auto) Neut # (Auto) Lymph # (Auto) Bureau # (Auto) Eos # (Auto) Baso # (Auto) Immature Gran # (Auto) PT INR APTT PTT Ratio Heparin Anti-Xa, Unfract 0.76 H* VBG pH VBG pCO2 VBG pO2 VBG HCO3 VBG O2 Saturation VBG Base Excess Sodium Potassium Chloride Carbon Dioxide Anion Gap BUN Creatinine Est Cr Clr Drug Dosing eGFR BUN/Creatinine Ratio Glucose POC Glucose 134 H Calcium Phosphorus Magnesium Troponin I High Sens 2950.9 H* D Procalcitonin PTH Intact Urine Color Urine Appearance Urine pH Ur Specific [place] Urine Protein Urine Glucose (UA) Urine Ketones Urine Blood Urine Nitrite Urine Bilirubin Urine Urobilinogen Ur Leukocyte Esterase Nasal Screen MRSA (PCR) Urine Opiates Screen U Codeine Confrm GC/MS Ur Morphine (GC/MS) Ur Hydrocodone (GC/MS) Ur Norhydrocodone Ur Noroxycodone Urine Oxycodone (GC/MS) U Oxymorphone GC/MS Ur Methadone, Qual Ur Hydromorphone (GC/MS) Fentanyl Comments Drug Monitor Fentanyl Fentanyl Confirmation Drug Monitor Norfentanyl Urine Fentanyl Screen Ur Norfentanyl Confirm Urine Barbiturates Ur Phencyclidine (PCP) U Amphetamin/Meth Scrn MDMA (Ecstasy) Screen U Benzodiazepines Scrn Ur Cocaine Metabolite U Marijuana (THC) Screen Drug Screen Comment Toxicology Comment Drug Monitor Historic Res 06/27/24 06/27/24 06/28/24 21:21 23:35 01:55 WBC 4.53 L RBC 3.72 L Hgb 11.2 L Hct 34.1 L MCV 91.7 MCH 30.1 MCHC 32.8 RDW Std Deviation 59.5 H RDW Coeff of Chanel 18.0 H Plt Count 154 MPV 10.9 Immature Gran % (Auto) 0.9 Neut % (Auto) 72.7 Lymph % (Auto) 14.3 Bureau % (Auto) 11.5 Eos % (Auto) 0.4 Baso % (Auto) 0.2 Neut # (Auto) 3.29 Lymph # (Auto) 0.65 L Bureau # (Auto) 0.52 Eos # (Auto) 0.02 Baso # (Auto) 0.01 Immature Gran # (Auto) 0.04 PT INR APTT PTT Ratio Heparin Anti-Xa, Unfract 0.60 VBG pH 7.45 H VBG pCO2 45 VBG pO2 50 VBG HCO3 31 VBG O2 Saturation 82.6 VBG Base Excess 6.4 Sodium 137 Potassium 3.4 L Chloride 101 Carbon Dioxide 30 Anion Gap 6 BUN 11 Creatinine 0.81 Est Cr Clr Drug Dosing 80.1 eGFR 80.51 BUN/Creatinine Ratio 13.6 Glucose 112 H POC Glucose 128 H Calcium 9.3 Phosphorus 3.9 Magnesium 1.6 L Troponin I High Sens 2347.1 H* D 2470.3 H* Procalcitonin PTH Intact Urine Color Urine Appearance Urine pH Ur Specific [place] Urine Protein Urine Glucose (UA) Urine Ketones Urine Blood Urine Nitrite Urine Bilirubin Urine Urobilinogen Ur Leukocyte Esterase Nasal Screen MRSA (PCR) Urine Opiates Screen U Codeine Confrm GC/MS Ur Morphine (GC/MS) Ur Hydrocodone (GC/MS) Ur Norhydrocodone Ur Noroxycodone Urine Oxycodone (GC/MS) U Oxymorphone GC/MS Ur Methadone, Qual Ur Hydromorphone (GC/MS) Fentanyl Comments Drug Monitor Fentanyl Fentanyl Confirmation Drug Monitor Norfentanyl Urine Fentanyl Screen Ur Norfentanyl Confirm Urine Barbiturates Ur Phencyclidine (PCP) U Amphetamin/Meth Scrn MDMA (Ecstasy) Screen U Benzodiazepines Scrn Ur Cocaine Metabolite U Marijuana (THC) Screen Drug Screen Comment Toxicology Comment Drug Monitor Historic Res 06/28/24 05:56 WBC RBC Hgb Hct MCV MCH MCHC RDW Std Deviation RDW Coeff of Chanel Plt Count MPV Immature Gran % (Auto) Neut % (Auto) Lymph % (Auto) Bureau % (Auto) Eos % (Auto) Baso % (Auto) Neut # (Auto) Lymph # (Auto) Bureau # (Auto) Eos # (Auto) Baso # (Auto) Immature Gran # (Auto) PT INR APTT PTT Ratio Heparin Anti-Xa, Unfract VBG pH VBG pCO2 VBG pO2 VBG HCO3 VBG O2 Saturation VBG Base Excess Sodium Potassium Chloride Carbon Dioxide Anion Gap BUN Creatinine Est Cr Clr Drug Dosing eGFR BUN/Creatinine Ratio Glucose POC Glucose 123 H Calcium Phosphorus Magnesium Troponin I High Sens Procalcitonin PTH Intact Urine Color Urine Appearance Urine pH Ur Specific [place] Urine Protein Urine Glucose (UA) Urine Ketones Urine Blood Urine Nitrite Urine Bilirubin Urine Urobilinogen Ur Leukocyte Esterase Nasal Screen MRSA (PCR) Urine Opiates Screen U Codeine Confrm GC/MS Ur Morphine (GC/MS) Ur Hydrocodone (GC/MS) Ur Norhydrocodone Ur Noroxycodone Urine Oxycodone (GC/MS) U Oxymorphone GC/MS Ur Methadone, Qual Ur Hydromorphone (GC/MS) Fentanyl Comments Drug Monitor Fentanyl Fentanyl Confirmation Drug Monitor Norfentanyl Urine Fentanyl Screen Ur Norfentanyl Confirm Urine Barbiturates Ur Phencyclidine (PCP) U Amphetamin/Meth Scrn MDMA (Ecstasy) Screen U Benzodiazepines Scrn Ur Cocaine Metabolite U Marijuana (THC) Screen Drug Screen Comment Toxicology Comment Drug Monitor Historic Res Diagnostic Findings Labs reviewed and notable for mild hypokalemia, stable renal function, mild anemia. Troponin peaked at 2950. ECG personally reviewed 06/27/2024 1757: Sinus rhythm 93 bpm. LVH with repolarization abnormality. Echo 06/27/2024: Normal LV size. EF 30-35%. Severe hypokinesis to akinesis of the inferior and inferolateral wall. Otherwise global hypokinesis. Moderate LVH. Normal RV size and systolic function. Moderate left atrial dilation. Moderate to severe aortic stenosis. Mild MR. Telemetry personally reviewed: Sinus rhythm. No arrhythmia. Medications Administered Current Inpatient Medications Aspirin (Aspirin 81 Mg Ectab) 81 mg PO QAM [facility] Stop: 07/28/24 08:59 Last Admin: 06/28/24 08:59 Dose: 81 mg Atorvastatin Calcium (Atorvastatin 40 Mg Tab) 40 mg PO QAM [facility] Stop: 07/28/24 08:59 Last Admin: 06/28/24 08:59 Dose: 40 mg Budesonide (Budesonide 0.5 Mg/2 Ml Vial (Pulmicort)) 0.5 mg NEB BID [facility] Stop: 07/27/24 20:59 Last Admin: 06/28/24 09:49 Dose: 0.5 mg Dextrose (Dextrose 50% 50 Ml Syringe) 25 - 50 ml IV UD PRN; Protocol PRN Reason: Hypoglycemia Protocol Stop: 07/27/24 09:43 Formoterol Fumarate (Formoterol 20 Mcg/2 Ml Vial) 20 mcg INH BIDR [facility] Stop: 07/27/24 18:59 Last Admin: 06/28/24 07:38 Dose: 20 mcg Glucagon (Glucagon For Inj 1 Mg Vial) 1 mg SQ UD PRN; Protocol PRN Reason: Hypoglycemia Protocol Stop: 07/27/24 09:43 Glucose (Glucose 40% Gel 15 Gm Tube) 15 - 30 gm PO UD PRN; Protocol PRN Reason: Hypoglycemia Protocol Stop: 07/27/24 09:43 Glucose (Glucose 10 Tab/Tube) 4 - 8 tab PO UD PRN; Protocol PRN Reason: Hypoglycemia Protocol Stop: 07/27/24 09:43 Hydromorphone HCl (Hydromorphone Inj 0.5 Mg/0.5 Ml Syr) 0.5 mg IV Q3H PRN PRN Reason: Moderate Pain (4,5,6) on NRS Stop: 07/11/24 09:53 Last Admin: 06/28/24 06:15 Dose: 0.5 mg Hydromorphone HCl (Hydromorphone Inj 1 Mg/Ml Syringe) 1 mg IV Q3H PRN PRN Reason: Severe Pain (7,8,9,10) on NRS Stop: 07/11/24 09:53 Last Admin: 06/28/24 09:18 Dose: 1 mg Acetaminophen (Ofirmev) 1,000 mg in 100 mls @ 400 mls/hr IV Q8H PRN PRN Reason: Fever/Mild Pain (Pain 1,2,3) Stop: 06/30/24 09:53 Last Infusion: 06/28/24 06:14 Dose: Infused Doxycycline Hyclate 100 mg/ (Dextrose) 100 mls @ 50 mls/hr IV Q12H [facility] Stop: 07/02/24 10:59 Last Infusion: 06/28/24 01:26 Dose: Infused Bumetanide 1 mg/ Syringe 4 mls @ 4 mls/min IV [id number] [facility] Stop: 07/27/24 16:59 Last Admin: 06/28/24 08:56 Dose: 4 mls/min Heparin Sodium/Dextrose (Heparin Sodium/Dextrose) 25,000 units in 500 mls @ 17 mls/hr IV .Q24H [facility]; Protocol Stop: 07/27/24 11:44 Last Titration: 06/28/24 07:13 Dose: 850 units/hr, 17 mls/hr Magnesium Sulfate/Dextrose (Magnesium Sulfate / D5w) 1 gm in 100 mls @ 50 mls/hr IV Q2H [facility] Stop: 06/28/24 10:44 Last Admin: 06/28/24 08:57 Dose: 50 mls/hr Insulin Aspart (Insulin Aspart Per Unit Charge) 0 units SC Q6 [facility] Stop: 07/27/24 11:29 Last Admin: 06/28/24 05:57 Dose: Not Given Isosorbide Mononitrate (Isosorbide Bureau Extended Rel 30 Mg Tabcr) 30 mg PO QAM [facility] Stop: 07/28/24 08:59 Last Admin: 06/28/24 08:59 Dose: 30 mg Lorazepam (Lorazepam 2 Mg/1 Ml Vial) 1 mg IV Q8H PRN PRN Reason: Anxiety/Agitation Stop: 07/27/24 09:53 Last Admin: 06/28/24 08:58 Dose: 1 mg Metoprolol Succinate (Metoprolol Succ 50mg Ext Rel Tab) 50 mg PO DAILY [facility] Stop: 07/28/24 08:59 Last Admin: 06/28/24 08:59 Dose: 50 mg Miscellaneous (Carbohydrates For Hypoglycemia ) 15 - 30 gm PO UD PRN PRN Reason: Hypoglycemia Protocol Stop: 07/27/24 09:43 Miscellaneous (Remove Nicoderm Patch) 1 each N/A DAILY@0859 [facility] Stop: 07/28/24 08:58 Last Admin: 06/28/24 08:59 Dose: 1 each Multi-Ingredient Mouthwash/Gargle (First - Mouthwash Blm 119 Ml) 10 ml MT ACHS PRN PRN Reason: dysphagia Stop: 07/27/24 09:50 Last Admin: 06/28/24 08:56 Dose: 10 ml Nicotine (Nicotine 21 Mg/24 Hr Tdsy) 1 patch TD QAM [facility] Stop: 07/28/24 08:59 Last Admin: 06/28/24 08:56 Dose: 1 patch Olanzapine (Olanzapine 2.5 Mg Tab) 2.5 mg PO DAILY PRN PRN Reason: Nausea And Vomiting Stop: 07/27/24 09:50 Ondansetron HCl (Ondansetron Inj 2 Mg/Ml 2 Ml Vial) 4 mg IV Q6H [facility] Stop: 07/27/24 09:59 Last Admin: 06/28/24 09:01 Dose: 4 mg Pantoprazole Sodium (Pantoprazole 40 Mg Tab) 40 mg PO QAM [facility] Stop: 07/28/24 08:59 Last Admin: 06/28/24 08:59 Dose: 40 mg Pregabalin (Pregabalin 150 Mg Cap) 150 mg PO TID [facility] Stop: 07/27/24 20:59 Last Admin: 06/28/24 08:56 Dose: 150 mg Ranolazine (Ranolazine 500 Mg Er Tab) 500 mg PO BID [facility] Stop: 07/27/24 20:59 Last Admin: 06/28/24 08:59 Dose: 500 mg Umeclidinium Thorp (Umeclidinium Thorp 62.5mcg/Blister 7 Puffs/Inhaler) 1 puffs INH DAILY [facility] Stop: 07/28/24 08:59 Last Admin: 06/28/24 08:56 Dose: 1 puffs PG Care Time/CCT Total # of Minutes Spent Total Time Spent with Patient: Total time spent is greater than 50% in coordination of care (as documented) at patient's floor/unit and/or counseling patient: Coding Level of Care Code 91299 SUB INP/OBS CARE 3/50MIN Diagnoses Acute HFrEF (heart failure with reduced ejection fraction) I50.21 Non-ST elevation OK (NSTEMI) I21.4 Cardiomyopathy I42.9 Aortic stenosis I35.0 CAD (coronary artery disease) I25.10 S/P coronary artery stent placement Z95.5 Paroxysmal atrial fibrillation I48.0 Tobacco dependence F17.200 Hypertensive emergency I16.1
--- NOTE | 2024-06-28 14:11 | Pre Anesthesia Assessment ---
Date of Service June 28, 2024 Pre Sedation Assessment Vital Signs Temp Pulse Pulse Resp BP BP Pulse Ox 06/28/24 13:41 69 18 105/53 L 95 06/28/24 13:00 103/56 L 06/28/24 12:51 37.0 C 70 20 96 06/28/24 12:00 108/65 06/28/24 11:54 36.8 C 72 21 97 06/28/24 11:00 135/71 06/28/24 11:00 36.8 C 71 18 95 06/28/24 10:00 36.8 C 66 17 94 06/28/24 10:00 127/75 06/28/24 09:00 135/76 06/28/24 09:00 36.8 C 73 22 93 06/28/24 08:00 139/77 06/28/24 08:00 06/28/24 08:00 06/28/24 07:51 36.9 C 90 19 92 06/28/24 07:37 84 20 96 06/28/24 07:12 37.0 C 89 20 94 06/28/24 07:00 145/93 H 06/28/24 06:30 86 19 134/79 96 06/28/24 05:00 37.0 C 84 18 140/79 94 06/28/24 04:00 37 C 75 19 141/83 H 94 06/28/24 03:00 77 14 130/70 94 06/28/24 02:30 79 18 94 06/28/24 02:00 37.2 C 80 18 138/81 94 06/28/24 01:00 37.2 C 83 18 132/78 94 06/28/24 00:00 74 06/28/24 00:00 36.5 C 70 16 118/62 95 06/28/24 00:00 37.2 C 79 22 129/73 93 06/27/24 23:00 37.2 C 80 19 128/75 93 06/27/24 22:00 06/27/24 22:00 37.3 C 81 23 125/68 93 06/27/24 21:45 37.3 C 84 20 128/75 92 06/27/24 21:20 85 21 94 06/27/24 20:22 86 18 96 06/27/24 19:30 37.4 C 88 19 133/87 93 06/27/24 17:01 136/87 06/27/24 17:00 37.3 C 82 18 94 06/27/24 16:30 152/73 H 06/27/24 16:30 37.2 C 85 22 93 06/27/24 16:09 37.2 C 86 21 95 06/27/24 16:03 85 06/27/24 16:01 128/93 06/27/24 15:32 86 21 96 06/27/24 15:30 37.2 C 85 21 98 06/27/24 15:30 116/79 06/27/24 15:00 110/77 06/27/24 14:57 37.1 C 84 20 96 06/27/24 14:30 109/87 06/27/24 14:27 37.1 C 82 23 96 O2 Del Method O2 Del Method O2 Flow Rate O2 Flow Rate FiO2 06/28/24 13:41 Room Air 06/28/24 13:00 06/28/24 12:51 06/28/24 12:00 06/28/24 11:54 06/28/24 11:00 06/28/24 11:00 06/28/24 10:00 06/28/24 10:00 06/28/24 09:00 06/28/24 09:00 06/28/24 08:00 06/28/24 08:00 Nasal Cannula 2 06/28/24 08:00 Nasal Cannula 2 06/28/24 07:51 Nasal Cannula 2 06/28/24 07:37 Nasal Cannula 2 06/28/24 07:12 06/28/24 07:00 06/28/24 06:30 Nasal Cannula 2 06/28/24 05:00 Nasal Cannula 2 06/28/24 04:00 BiPAP 25 06/28/24 03:00 BiPAP 25 06/28/24 02:30 25 06/28/24 02:00 BiPAP 25 06/28/24 01:00 BiPAP 25 06/28/24 00:00 06/28/24 00:00 Nasal Cannula 2 06/28/24 00:00 BiPAP 25 06/27/24 23:00 BiPAP 25 06/27/24 22:00 BiPAP 25 06/27/24 22:00 BiPAP 25 06/27/24 21:45 BiPAP 25 06/27/24 21:20 25 06/27/24 20:22 Nasal Cannula 3 06/27/24 19:30 Nasal Cannula 2 06/27/24 17:01 06/27/24 17:00 06/27/24 16:30 06/27/24 16:30 06/27/24 16:09 06/27/24 16:03 06/27/24 16:01 06/27/24 15:32 25 06/27/24 15:30 06/27/24 15:30 06/27/24 15:00 06/27/24 14:57 06/27/24 14:30 06/27/24 14:27 Cardiovascular + regular rhythm + murmur Respiratory + clear to auscultation bilaterally Pre-Sedation Airway Assessment Smoking Status: Current some day smoker Short, Thick Neck: No Thyromental Distance: > or= 3.5 Finger Breadths Oral Cavity: + WNL Mallampati Class: IV ASA: ASA3 NPO Status Date of Last Intake of Fluids: 06/27/24 Time of Last Intake of Fluids: 18:00 Date of Last Intake of Solid Food: 06/27/24 Time of Last Intake of Solid Foods: 18:00 Procedure Planning Contraindications for Sedation: none Current Medications Reviewed: Yes Notes The planned sedation has been discussed with the patient. Informed Consent was obtained. I have identified the patient, determined the appropriateness of sedation and have assessed the patient immediately prior to the procedure. All medicine(s) and interventions are by my order.
[2024-06-28] MEDS: MIDAZOLAM HCL 1 MG/ML 2ML VIAL ONE (14:43)
[2024-06-28] MEDS: HEPARIN (PORCINE) 1000 UNIT/ML 10 ML (CATH LAB USE ONLY) ONE (14:43)
[2024-06-28] MEDS: niCARdipine 2,000 MCG/20 ML SYR ONE (14:43)
[2024-06-28] MEDS: fentaNYL citrate PF 100 MCG/2 ML VIAL ONE (14:44)
[2024-06-28] MEDS: OPTIRAY 350 ONE (14:44)
[2024-06-28] MEDS: NITROGLYCERIN/D5W 100MCG/ML 20ML SYR ONE (14:45)
--- NOTE | 2024-06-28 15:41 | Post Operative Brief Note ---
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 Left to right collaterals. Complications none
--- NOTE | 2024-06-28 15:42 | Post Anesthesia Assessment ---
Date of Service June 28, 2024 Post Sedation Assessment Vital Signs Temp Pulse Pulse Resp BP BP Pulse Ox 06/28/24 14:56 75 18 134/82 95 06/28/24 13:41 69 18 105/53 L 95 06/28/24 13:00 103/56 L 06/28/24 12:51 37.0 C 70 20 96 06/28/24 12:00 108/65 06/28/24 11:54 36.8 C 72 21 97 06/28/24 11:00 135/71 06/28/24 11:00 36.8 C 71 18 95 06/28/24 10:00 36.8 C 66 17 94 06/28/24 10:00 127/75 06/28/24 09:00 135/76 06/28/24 09:00 36.8 C 73 22 93 06/28/24 08:00 139/77 06/28/24 08:00 06/28/24 08:00 06/28/24 07:51 36.9 C 90 19 92 06/28/24 07:37 84 20 96 06/28/24 07:12 37.0 C 89 20 94 06/28/24 07:00 145/93 H 06/28/24 06:30 86 19 134/79 96 06/28/24 05:00 37.0 C 84 18 140/79 94 06/28/24 04:00 37 C 75 19 141/83 H 94 06/28/24 03:00 77 14 130/70 94 06/28/24 02:30 79 18 94 06/28/24 02:00 37.2 C 80 18 138/81 94 06/28/24 01:00 37.2 C 83 18 132/78 94 06/28/24 00:00 74 06/28/24 00:00 36.5 C 70 16 118/62 95 06/28/24 00:00 37.2 C 79 22 129/73 93 06/27/24 23:00 37.2 C 80 19 128/75 93 06/27/24 22:00 06/27/24 22:00 37.3 C 81 23 125/68 93 06/27/24 21:45 37.3 C 84 20 128/75 92 06/27/24 21:20 85 21 94 06/27/24 20:22 86 18 96 06/27/24 19:30 37.4 C 88 19 133/87 93 06/27/24 17:01 136/87 06/27/24 17:00 37.3 C 82 18 94 06/27/24 16:30 152/73 H 06/27/24 16:30 37.2 C 85 22 93 06/27/24 16:09 37.2 C 86 21 95 06/27/24 16:03 85 06/27/24 16:01 128/93 O2 Del Method O2 Del Method O2 Flow Rate O2 Flow Rate FiO2 06/28/24 14:56 Nasal Cannula 06/28/24 13:41 Room Air 06/28/24 13:00 06/28/24 12:51 06/28/24 12:00 06/28/24 11:54 06/28/24 11:00 06/28/24 11:00 06/28/24 10:00 06/28/24 10:00 06/28/24 09:00 06/28/24 09:00 06/28/24 08:00 06/28/24 08:00 Nasal Cannula 2 06/28/24 08:00 Nasal Cannula 2 06/28/24 07:51 Nasal Cannula 2 06/28/24 07:37 Nasal Cannula 2 06/28/24 07:12 06/28/24 07:00 06/28/24 06:30 Nasal Cannula 2 06/28/24 05:00 Nasal Cannula 2 06/28/24 04:00 BiPAP 25 06/28/24 03:00 BiPAP 25 06/28/24 02:30 25 06/28/24 02:00 BiPAP 25 06/28/24 01:00 BiPAP 25 06/28/24 00:00 06/28/24 00:00 Nasal Cannula 2 06/28/24 00:00 BiPAP 25 06/27/24 23:00 BiPAP 25 06/27/24 22:00 BiPAP 25 06/27/24 22:00 BiPAP 25 06/27/24 21:45 BiPAP 25 06/27/24 21:20 25 06/27/24 20:22 Nasal Cannula 3 06/27/24 19:30 Nasal Cannula 2 06/27/24 17:01 06/27/24 17:00 06/27/24 16:30 06/27/24 16:30 06/27/24 16:09 06/27/24 16:03 06/27/24 16:01 Recovery Score Activity: Moves 4 extremities Respiration: Deep Breath/Cough Circulation: +/-20% PreAnes Value Consciousness: Fully Awake Oxygen Saturation: O2 needed for >90% Post Anesthesia Score: 9 Discharge Sedation Level of Care: Fast Track Phase II Post Sedation Plan On clinical assessment, the patient appears to have tolerated the sedation without complications. Patient is recovering as anticipated. Patient will continue to be monitored by nursing and may be discharged when sedation discharge criteria are met per below protocol. Upon Completions of procedure up to 15 minutes continue every 5 minute vital signs and the P.A.R. score; then discharge to a Phase I or Fast Track to Phase II per the following guidelines: * Discharge Patient to appropriate Phase II area if PAR is 8 or greater or return to pre- procedure baseline. The post - procedure orders will be as directed. * If PAR score is less than 8 or not return to pre-procedure baseline then patient will follow Phase I monitoring till PAR is reached for Phase II. The Phase I may be done in procedure room or may call to secure a Phase I area. * If naloxone or flumazenil are used for reversal, hold in Phase I for continued monitoring from when last reversal dose was given for a minimum of 60 minutes or longer pending the nurse and/or physician discretion of patient condition before discharge to Phase II. Please call the Sedation Physician to re-evaluate and complete post-note for discharge to Phase II area. Do NOT discharge from procedure sedation or Phase 1 until post- sedation evaluation note is complete by procedure /sedation MD Sedation Discharge Instructions to be given to the patient at discharge to home.
--- NOTE | 2024-06-28 15:52 | Cardiac Catheterization ---
[facility] Data: Log Yard Manager Cardiac Status Clinical evaluation leading to the procedure CAD Presenation: Non STEMI Anginal Classification: CCS III Heart Failure: No Cardiogenic Shock within 24 Hours: No Cardiac Arrest within 24 Hours: No Imaging Studies Past 6 Months: Yes Stress Studies Past 6 Months: No Coronary Anatomy Dominant: Right Diagnostic Physicians Name: Brian Lizama MD Status: Elective Closure Device Percutaneous Entry Location: Radial Closure Device: Radial Band Recommendations: Management Recommendatons Cardiac Cath Procedure Full Procedure Date June 28, 2024 Pre-Procedure Diagnosis Pre-Procedure Diagnosis: Non STEMI, CHF and Cardiomyopathy AUC Score AUC Score: 8 Post-Procedure Diagnosis Post-Procedure Diagnosis: Severe CAD Procedure(s) Performed Procedure(s) Performed: Coronary Angiography Publications Production Supervisor Brian Lizama MD Barrel Drainer(s) Deibler Estimated Blood Loss Estimated Blood Loss: < 20 ml Medication(s) Medication(s): Fentanyl, Heparin, Lidocaine 1%, Nicardipine and Versed Summary of Findings Procedures: 1. Coronary angiography 2. Moderate sedation Indication: Mrs. 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 She presented with acute heart failure with reduced EF and acute on chronic hypercapnic hypoxic respiratory failure. She was chest pain-free but had had crescendo angina over the past few months, worsened over the preceding week. Coronary angiography: 1. Left main: Calcifications noted. Left main 95%. TOYA-3 flow. 2. Left anterior descending: Large-caliber vessel. Ostial LAD 30%. Early mid LAD 50-60% and then diffuse 40 to 50% stenosis. Mid LAD stent patent. Mid LAD 50% just distal to mid LAD stent. Large D1 with ostial 70-80%. Medium caliber D2. TOYA-3 flow. 3. Circumflex: Ostial/proximal circumflex 98%. Distal circumflex 40%. Large caliber OM1 with medium caliber superior branch. OM1 mid 50-60%. TOYA-3 flow in the circumflex system. 4. Right coronary artery: RCA is large and dominant. Early mid RCA 10%. Mid RCA stent with subtotal occlusion in-stent restenosis. TOYA I flow. PDA and PL fill via [id number] collaterals. Moderate sedation: 1. Sedation start time: 1430 2. Sedation end time: 1446 Procedural notes: 1. Coronary angiography was performed via the right radial artery without known complication. 2. There was no attempt to cross the previously documented stenotic aortic valve. Impression: 1. Severe multivessel CAD, including left main and subtotal occlusion in-stent restenosis of mid RCA stent. 2. Left to right collaterals. Plan: 1. Discussed options with patient and family. Patient was adamant before sedation that she would not want to undergo CABG. Given her metastatic lung cancer to the brain, she is not an optimal CABG candidate. Discussed options such as, referral to CT surgery capable center to discuss options formally by CT surgeon, where could also consider high risk PCI options, if deemed a candidate. After discussion, decision was made to pursue medical therapy with an attempt to improve quality of life. 2. Optimize heart failure therapy with GDMT. 3. Recommend palliative care consultation. Patient/family agreeable. Hemodynamics Rest Ao:: 107/76 Final Ao: 127/67 LV: n/a Recommendations Recommendations: Management Recommendatons Specimens Specimens: None Radiation Exposure (mGy) 838 mGy. Fluoro time 3.4 min. Contrast (mls) 60 ml Procedural Complication(s) None Disposition ICU I attest to the content of the Intraoperative Record and any orders documented therein. Any exceptions are noted below. [facility] Card Cath Procedure Codes Cardiac Catheterization Procedure 1: Cardiovascular Cath Procedures: 76163 Coronaries Moderate Sedation Procedure 1: Sedation/Anesthesia: 83259 Mod Sedation by the same physician;Init15 Min Child Age 5 & Up Procedure 2: Sedation/Anesthesia: 50128 Mod Sedation by the same physician; Ea [id number] Minutes PG Care Time/CCT Total # of Minutes Spent Total Time Spent with Patient: Total time spent is greater than 50% in coordination of care (as documented) at patient's floor/unit and/or counseling patient:
--- NOTE | 2024-06-28 16:25 | Hospitalist Progress Note ---
Date of Service June 28, 2024 Assessment & Plan (1) Acute HFrEF (heart failure with reduced ejection fraction): Plan: Presented with acutely worsening shortness of breath, orthopnea, requiring BiPAP on admission with acute respiratory failure with hypoxemia and hypercapnia Chest CTA without pulmonary embolism but with small bilateral pleural effusions, pulmonary edema, cardiomegaly. Viral respiratory BioFire negative, BNP elevated at 1179 Initially given IV Lasix, nitro drip and admitted to ICU With NSTEMI with troponin peaking at 2900 Echocardiogram with severely reduced EF of 30-35% with significant inferior and inferolateral wall motion abnormalities, and moderate to severe aortic stenosis EKG showed new ST depressions in the inferior and lateral leads Diuresed with IV Bumex and improved, weaned off BiPAP to 2 L nasal cannula Cardiac catheterization 06/28 shows severe multivessel disease including left main disease Given that she has metastatic lung cancer currently on immunotherapy, and she does not desire open heart surgery due to being high risk, will pursue medical management and palliative medicine consultation for goals of care discussion Continue IV Bumex Continue to follow BMP and magnesium and replace electrolytes-give IV magnesium 2 g today and oral potassium Follow I's and O's, daily weights Continue isosorbide, metoprolol succinate, started Entresto and spironolactone Monitor on telemetry for arrhythmias (2) Coronary artery disease: Plan: S/p 5 stents, with the last being in 2018, with elevated troponin and ST depressions on ECG, with heart failure exacerbation NSTEMI as noted above with cardiac catheterization as noted above Continue aspirin, statin, heparin drip for another 24 hours and then stop Continue isosorbide, heart failure medications as noted above (3) Aortic stenosis: Plan: Moderate on last echocardiogram, now with moderate to severe aortic stenosis Avoid overdiuresis and hypotension (4) Cancer related pain: Plan: Patient was previously on oxycodone total of 60 mg daily, but switched to fent anyl patch a few days prior to admission due to insurance coverage issues Opioids are for cancer related lower back pain Initially holding fentanyl patch to hypercapnia. 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: Plan: With metastases to the brain, received a whole brain radiation recently Follows with CCP; on maintenance atezolizumab Palliative medicine consultation requested Patient is considering going home with hospice (6) Anxiety: Plan: Patient is normally on lorazepam 1 mg TID Continue IV as needed lorazepam for now (7) Paroxysmal atrial fibrillation: Plan: Hold Eliquis and on heparin drip-discontinue heparin drip likely tomorrow and revert to Eliquis (8) COPD (chronic obstructive pulmonary disease): Plan: Continue home inhalers Will defer additional steroids at this time (9) Tobacco dependence: Plan: Patient reports she is a current everyday tobacco cigarette smoker; 1 PPD Nicotine patch daily (10) Diabetes mellitus, type 2: Plan: Last A1c at 5.5% on 05/08/2024 Hold metformin Loose SSI with target BSG range 120-150mg/dL, CF 50, no carb ratio Keep n.p.o. while on BiPAP BSG q4h Adjust regimen as needed Plan Disposition: Downgrade out of ICU to PCU Full code for now-patient and her family are still wanting this despite wanting hospice. Patient was too drowsy from opioids to have further discussion and family asked that they think about it and discuss further tomorrow VTE PPx: Heparin IV Admission and Anticipated Discharge Date Admission Date: June 27, 2024 Subjective Patient just returned from cardiac catheterization and understands that she has severe multivessel CAD including left main disease and wants to take a palliative approach. However, when I discussed the possibility of going home on hospice and she said she wanted this, she continues to state that she wants to be a full code. She did continue to fall asleep while I talk to her as she had just taken IV Dilaudid. Her and son at the bedside also insists that she is a full code but yet want her to be on hospice. They are agreeable to a more in-depth discussion tomorrow when she is not drowsy from opioids. She is currently denying shortness of breath but was having pain and anxiety all over and received IV Dilaudid and Ativan on several occasions today. I discussed her care with the project scheduler as well as the forklift supervisor Physical Exam Constitutional: + ill appearing and + lethargic; no acut e distress Respiratory: normal respiratory effort; no cough Auscultation: + diminished lung sounds (Through); no crackles, no rhonchi and no wheezes Cardiovascular: Rate/Rhythm: regular rate and regular rhythm Heart Sounds: + murmur (2/6 ORALIA at the RUSB) Extremities: + edema (Trace lower extremity edema) Gastrointestinal (Abdomen): normal bowel sounds, soft, nontender, no hepatosplenomegaly Results & Data Results & Data Vital Signs (Past 12 Hours) Vital Signs Temp Pulse Pulse Resp BP Pulse Ox O2 Del Method 06/28/24 14:56 75 18 134/82 95 Nasal Cannula 06/28/24 13:41 69 18 105/53 L 95 Room Air 06/28/24 13:00 103/56 L 06/28/24 12:51 37.0 C 70 20 96 06/28/24 12:00 108/65 06/28/24 11:54 36.8 C 72 21 97 06/28/24 11:00 135/71 06/28/24 11:00 36.8 C 71 18 95 06/28/24 10:00 36.8 C 66 17 94 06/28/24 10:00 127/75 06/28/24 09:00 135/76 06/28/24 09:00 36.8 C 73 22 93 06/28/24 08:00 139/77 06/28/24 08:00 Nasal Cannula 06/28/24 08:00 06/28/24 07:51 36.9 C 90 19 92 Nasal Cannula 06/28/24 07:37 84 20 96 Nasal Cannula 06/28/24 07:12 37.0 C 89 20 94 06/28/24 07:00 145/93 H 06/28/24 06:30 86 19 134/79 96 Nasal Cannula 06/28/24 05:00 37.0 C 84 18 140/79 94 Nasal Cannula O2 Del Method O2 Flow Rate O2 Flow Rate 06/28/24 14:56 06/28/24 13:41 06/28/24 13:00 06/28/24 12:51 06/28/24 12:00 06/28/24 11:54 06/28/24 11:00 06/28/24 11:00 06/28/24 10:00 06/28/24 10:00 06/28/24 09:00 06/28/24 09:00 06/28/24 08:00 06/28/24 08:00 2 06/28/24 08:00 Nasal Cannula 2 06/28/24 07:51 2 06/28/24 07:37 2 06/28/24 07:12 06/28/24 07:00 06/28/24 06:30 2 06/28/24 05:00 2 Laboratory Results CBC, BMP, VBG, anti-10-A level, magnesium, troponin levels reviewed PG Care Time/CCT Total # of Minutes Spent Total Time Spent with Patient: Total time spent is greater than 50% in coordination of care (as documented) at patient's floor/unit and/or counseling patient: Coding Level of Care Code 47023 SUB INP/OBS CARE 3/50MIN Diagnoses Acute HFrEF (heart failure with reduced ejection fraction) I50.21 Coronary artery disease of [place] artery of [place] heart with stable angina pectoris I25.118 Associated angina: with stable angina Coronary Disease-Associated Artery/Lesion type: [place] artery [place] vs. transplanted heart: [place] heart Aortic stenosis I35.0 Cancer related pain G89.3 Small cell carcinoma of lower lobe of left lung C34.32 Anxiety F41.9 Paroxysmal atrial fibrillation I48.0 COPD (chronic obstructive pulmonary disease) J44.9 COPD type: unspecified COPD Tobacco dependence F17.200 Diabetes mellitus, type 2 E11.9 (2) Coronary artery disease Associated angina: with stable angina Coronary Disease-Associated Artery/Lesion type: [place] artery [place] vs. transplanted heart: [place] heart Qualified Code(s): I25.118 - Atherosclerotic heart disease of [place] coronary artery with other forms of angina pectoris (8) COPD (chronic obstructive pulmonary disease) COPD type: unspecified COPD Qualified Code(s): J44.9 - Chronic obstructive pulmonary disease, unspecified
[2024-06-28] MEDS ORDERED: Nursing to Pharmacy Communication SCH (19:30)
[2024-06-28] MEDS: VALSARTAN/SACUBITRIL 26/24MG TAB PO SCH (20:21)
[2024-06-28] MEDS: INSULIN ASPART PER UNIT CHARGE SC SCH (21:09)
[2024-06-29 00:02] LABS: ANTI-Xa, UFH(UnfractionatedHep 0.31 IU/ml (0.3-0.7)
[2024-06-29 05:34] LABS: Basophils # (auto) 0.01 K/uL (0.00-0.20); Basophils % (auto) 0.3 %; Eosinophils # (auto) 0.09 K/uL (0.00-0.50); Eosinophils % (auto) 2.8 %; Hematocrit (blood only) 35.1 % (37.0-47.0); Hemoglobin 11.4 g/dl (12.0-16.0); Immature Granulocytes # (auto) 0.03 K/uL (0.01-0.20); Immature Granulocytes % (auto) 0.9 %; Lymphocytes # (auto) 0.58 K/uL (1.20-3.40); Lymphocytes % (auto) 18.4 %; Mean Corpuscular Hemoglobin 30.2 pg (25.0-34.0); Mean Corpuscular Hgb Conc 32.5 g/dL (32.0-36.0); Mean Corpuscular Volume 93.1 fL (80.0-100.0); Mean Platelet Volume 10.5 fL (9.4-12.4); Monocytes # (auto) 0.45 K/uL (0.11-0.59); Monocytes % (auto) 14.2 %; Neutrophils % (auto) 63.4 %; Platelet Count 157 K/uL (130-400); RDW Coefficient of Variation 17.9 % (11.5-14.5); RDW Standard Deviation 61.4 fL (36.4-46.3); Red Blood Count 3.77 M/uL (4.20-5.40); White Blood Count 3.16 K/ul (4.8-10.8)
[2024-06-29 05:44] LABS: BUN Creatinine Ratio 15.7 (10-20); Calcium 9.2 mg/dl (8.6-10.3); Creatinine Clr Calc Pharmacy 77.9 ml/min; Magnesium 1.9 mg/dl (1.7-2.4); Potassium 3.7 mmol/L (3.5-5.1)
--- NOTE | 2024-06-29 05:56 | Electrocardiogram Report ---
Test Reason : Blood Pressure : */* mmHG Vent. Rate : 93 BPM Atrial Rate : 93 BPM P-R Int : 162 ms QRS Dur : 96 ms QT Int : 394 ms P-R-T Axes : 53 43 125 degrees QTcB Int : 489 ms Poor data quality, interpretation may be adversely affected Normal sinus rhythm Left ventricular hypertrophy with repolarization abnormality Abnormal ECG When compared with ECG of 27-Jun-2024 11:03, ST now depressed in Anterior leads Confirmed by Brian Lizama ([id number]) on 06/29/2024 5:55:55 AM Referred By: REFERRED SELF Confirmed By: Brian Lizama
[2024-06-29 06:00] LABS: ANTI-Xa, UFH(UnfractionatedHep 0.26 IU/ml (0.3-0.7)
[2024-06-29] MEDS: CALCIUM CARBONATE 500 MG CHEWABLE TAB ONE (07:33)
[2024-06-29] MEDS ORDERED: CALCIUM CARBONATE 500 MG CHEWABLE TAB PO PRN (07:35)
[2024-06-29] MEDS: SPIRONOLACTONE 25 MG TAB PO SCH (07:42)
[2024-06-29] MEDS: POTASSIUM CHLORIDE CRTAB 20 MEQ TABCR PO STA (08:00)
[2024-06-29] MEDS: MAGNESIUM SULFATE / D5W 1 GM/100 ML BAG IV ONE (08:01)
--- NOTE | 2024-06-29 08:08 | Pulmonology Progress Note ---
Date of Service June 29, 2024 Assessment & Plan (1) Acute on chronic heart failure with preserved ejection fraction (HFpEF): (2) Tobacco dependence: (3) COPD with acute exacerbation: (4) Small cell lung cancer in adult: (5) Anxiety: (6) Acute on chronic respiratory failure with hypoxia and hypercapnia: (7) Lung cancer metastatic to brain: Plan 64-year-old female being admitted to the hospital for shortness of breath. Being transferred to the ICU as she was on nitro drip Past medical history: Hypertension, hypothyroidism, diabetes, GERD, small cell lung cancer metastatic, diagnosed 10/30 PFT 10/13/2023 personally reviewed: Moderate severe obstruction, insignificant bronchodilator response, lung volumes are not accurate, moderate decrease in DLCO FVC 1.65 L 46%, FEV1 1.15 L 42%, FEV1/FVC 70%, DLCO 59% CTA chest 06/27/2024 personally reviewed: Motion degraded study Interlobular thickening appreciated bilaterally upper and lower lobes Left lower lobe 4.9 cm opacity Small bilateral pleural effusion Elevated left hemidiaphragm Minimal mediastinal lymphadenopathy -- Acute on chronic hypercapnic hypoxic respiratory failure Multifactorial Hypoxia is likely from pulmonary edema Hypercapnia could be from medications, she takes lorazepam at home for anxiety, she is on chronic opioids at home as well, she also uses marijuana on a regular basis UDS was positive for opioid and fentanyl --COPD with emphysema Gold E Currently on Incruse along with nebulized budesonide and formoterol Along with as needed albuterol PFT 10/13/2023 personally reviewed: Moderate severe obstruction, insignificant bronchodilator response, lung volumes are not accurate, moderate decrease in DLCO FVC 1.65 L 46%, FEV1 1.15 L 42%, FEV1/FVC 69%, DLCO 59%, DLCO/VA 90% Absolute eosinophil count 110 on 05/26/2023 -- 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 4.7 cm x 2.1 cm, no previous CT of the chest to compare S/p 2 cycles of chemo (Carboplatin, etoposide and atezolizumab with Trilaciclib) and radiation On maintenance atezolizumab 2D echo 05/27/2023: EF 55-60%, moderate concentric LVH, grade 1 diastolic dysfunction, mild to moderate aortic stenosis -- Current smoker >60 pack-year smoking history, currently smoking a pack a day -- Obesity Advised to lose weight diet and exercise Due to chronic respiratory failure consequent to COPD, it is causing recurrent hypercapnic respiratory failure with a PaCo2 of 70 patient now requires a noninvasive home ventilator. Bilevel therapy with and without a rate would be ineffective as patient requires a volume targeted mode. Patient would benefit greatly from noninvasive ventilation which would improve lung function and potentially reduce worsening of symptoms. A BiPAP would be ineffective as patient requires a volume targeted mode. Interruption of ventilator support would lead to a decline of health status. NIMV settings should be AVAPS-AE; Breath rate: auto; Inspiratory time:auto; Sigh: off; Tidal Volume: 350-450, PS min: 4-10 PS max: 12-20; EPAP min: 6-10; EPAP max: 10-16; AVAPS rate: 14 during sleep and as needed Plan: In/out: -2 L, urine output 3440 Potassium and magnesium being replaced Unfortunately patient has multivessel disease. She will need to have bypass surgery but she would not be a good candidate given the metastatic lung cancer as well as radiation to the chest. She would like to know more about it. Although there was an in-depth discussion between cardiology team and the patient with family members yesterday. She is going to have a palliative care consult as well. RUEL Henderson Please note the above document was generated using voice recognition software. It may contain grammatical, syntax or spelling errors.Any formal questions or concerns about the content, text or information contained within the body of this dictation should be directly addressed to the provider for clarification. Admission and Anticipated Discharge Date Admission Date: June 27, 2024 Subjective Patient seen and examined at bedside. No acute distress, notable symptoms overnight She was saturating 93-94% on 1 L nasal cannula She did use BiPAP overnight for couple of hours Has been urinating well. Denies any chest pain, no abdominal pain. No bowel movement but has been having flatulence Fair appetite, no nausea vomiting Review of Systems 2 Review of Systems: All systems reviewed & are unremarkable except as noted in Subjective Physical Exam 2 Physical Exam: Constitutional: Distress HEENT: EOMI, PERRLA Respiratory system: Decreased air entry bilaterally, no wheeze, no rhonchi, positive crackles bilaterally, L>R CVS: S1-S2 positive, 2 out of 6 systolic murmur appreciated best at aorta Abdomen: Soft, nontender, nondistended, positive bowel sounds x4 Extremities: +2 pulses bilaterally radialis/ dorsalis pedis, no cyanosis, +1 pitting edema bilateral lower extremity Neuro: Awake alert oriented x 3 Psych: Normal mood and affect G/U: Positive Henderson Skin: no rashes, warm and dry Lymphatic: no cervical or axillary lymphadenopathy Results & Data Results & Data Vital Signs (Past 12 Hours) Vital Signs Temp Pulse Pulse Resp BP Pulse Ox O2 Del Method 06/29/24 07:27 75 20 92 Nasal Cannula 06/29/24 07:00 122/81 06/29/24 07:00 37.2 C 74 20 95 06/29/24 05:00 75 20 100/58 L 93 Nasal Cannula 06/29/24 04:00 77 22 123/68 94 Nasal Cannula 06/29/24 02:00 37.1 C 73 22 105/61 93 Nasal Cannula 06/28/24 23:51 78 20 95 06/28/24 23:09 74 06/28/24 23:00 37.6 C H 75 20 138/85 95 Nasal Cannula O2 Flow Rate FiO2 06/29/24 07:27 2 06/29/24 07:00 06/29/24 07:00 06/29/24 05:00 2 06/29/24 04:00 06/29/24 02:00 2 06/28/24 23:51 25 06/28/24 23:09 06/28/24 23:00 2 Laboratory Results 06/29/24 04:51 06/29/24 04:51 PG Care Time/CCT Total # of Minutes Spent Total Time Spent with Patient: Total time spent is greater than 50% in coordination of care (as documented) at patient's floor/unit and/or counseling patient: Coding Level of Care Code 68169 SUB INP/OBS CARE 3/50MIN Diagnoses Acute on chronic heart failure with preserved ejection fraction (HFpEF) I50.33 Tobacco dependence F17.200 COPD with acute exacerbation J44.1 Small cell lung cancer in adult C34.90 Anxiety F41.9 Acute on chronic respiratory failure with hypoxia and hypercapnia J96.21; J96.22 Lung cancer metastatic to brain C34.90; C79.31
--- NOTE | 2024-06-29 08:40 | Palliative Care Consultation ---
Date of Consultation June 29, 2024 Assessment & Plan (1) Acute on chronic heart failure with preserved ejection fraction (HFpEF): (2) Non-ST elevation ND (NSTEMI): (3) Aortic stenosis: (4) CAD (coronary artery disease): (5) S/P coronary artery stent placement: (6) Paroxysmal atrial fibrillation: (7) Tobacco dependence: encourage smoking cessation (8) Hypertensive emergency: resolved Plan ASSESSMENT/PLAN: Lengthy discussion with patient and her spouse and children concerning goals of care, see separate family meeting note for details. Ultimately patient and family in agreement to transition to comfort directed care. Pt requests discharge to home as soon as able. CM with family working to have oxygen and other required DME delivered to home and identify hospice team to best help pt. Pt will be transported home once oxygen is available in home. Continue current medications per cardiology recs for optimization until discharge. Continue fentanyl patch and add roxanol for symptom management. History of Present Illness Reason for Consultation: goals of care Requesting Physician: Juanita Estrella MD Attending Physician: Juanita Estrella MD History of Present Illness this patient is a 64-year-old female with a history of metastatic small cell carcinoma of the lung, CAD s/p coronary stents, paroxysmal atrial fibrillation on Eliquis, COPD, current smoker, anxiety, cancer related pain, DM2 who presents to the ER with significant respiratory distress, shortness of breath, and acute respiratory failure with hypoxemia and hypercarbia requiring BiPAP. She was placed on BiPAP and given IV Lasix, placed on nitro glycerin drip. She was hypertensive on arrival with significant ST depressions in the inferolateral leads on ECG and elevated troponin. Cardiology performed Echocardiogram and LHC and found pt to have hypokinesis with significantly diminished heart function and severe multi-vessel disease. Pt has declined surgical intervention given risks likely outweighing benefits. Palliative care consulted for assistance with goals of care. Allergies Allergy/AdvReac Type Severity Reaction Status Date / Time latex Allergy Intermediate skin Verified 05/15/24 10:08 itching Influenza Virus Vaccines AdvReac Severe developed Verified 05/15/24 10:08 blood clots vaccine adjuvant system, AdvReac Severe blood clots Verified 05/15/24 10:08 AS01B liposomal [From Shingrix (PF)] varicella-zoster virus AdvReac Severe blood clots Verified 05/15/24 10:08 glycoprotein E, recombinant [From Shingrix (PF)] zolpidem [From Ambien] AdvReac Severe Hallucinati Verified 05/15/24 10:08 ng Home Medications Medication Instructions Recorded Confirmed Type levocetirizine 5 mg tablet (Xyzal) 5 mg PO DAILY PRN allergies 05/26/23 06/27/24 History Wheeled Walker #1 ea 06/16/23 05/15/24 Rx blood-glucose meter (OneTouch #1 ea 10/28/23 05/15/24 Rx Ultra2 Meter) lancets 33 gauge (OneTouch Delica #100 ea 10/28/23 05/15/24 Rx Plus Lancet) Hospital Bed Homecare #1 ea 11/04/23 05/15/24 Rx olanzapine 2.5 mg tablet 2.5 mg PO UD PRN Nausea And 11/04/23 06/27/24 History Vomiting WHEEL MOBILITY SCOOTER #1 ea 11/08/23 05/15/24 Rx Wheelchair (Manual) #1 ea 11/08/23 05/15/24 Rx transport chair #1 ea 11/10/23 05/15/24 Rx Magic Mouthwash 300 mL mouthwash 10 ml mucous membrane ACHS PRN 11/22/23 06/27/24 Rx dysphagia #300 mL blood sugar diagnostic (OneTouch #100 ea 12/27/23 05/15/24 Rx Ultra Test strips) prochlorperazine maleate 10 mg 10 mg PO DIRECTED PRN 12/28/23 06/27/24 History tablet NAUSEA/VOMITING metoprolol succinate 50 mg 50 mg PO DAILY #30 tabs 12/30/23 06/27/24 Rx tablet,extended release 24 hr ranolazine 500 mg tablet,extended 500 mg PO BID #60 tabs 12/30/23 06/27/24 Rx release,12 hr albuterol sulfate 90 mcg/actuation 2 puff inhalation QID PRN 02/11/24 06/27/24 Rx aerosol inhaler shortness of breath or wheezing #6.7 grams promethazine 6.25 mg-codeine 10 5 ml PO Q8H PRN cough #473 mL 02/11/24 06/27/24 Rx mg/5 mL syrup budesonide 0.5 mg/2 mL suspension 0.5 mg (2 mL) NEB BID #60 doses 02/24/24 06/27/24 Rx for nebulization Emotional Support Animal #1 ea 03/31/24 05/15/24 Rx apixaban 5 mg tablet (Eliquis) 5 mg PO BID #60 tabs 04/19/24 06/27/24 Rx nitroglycerin 0.4 mg sublingual 0.4 mg sublingual Q5M PRN chest 05/15/24 06/27/24 Rx tablet pain #30 tabs ondansetron HCl 4 mg tablet 4 mg PO QID PRN nausea and 06/05/24 06/27/24 Rx vomiting #120 tabs pregabalin 150 mg capsule (Lyrica) 150 mg PO TID #90 caps 06/15/24 06/27/24 Rx lorazepam 1 mg tablet 1 mg PO TID PRN anxiety, cancer 06/21/24 06/27/24 Rx #90 tabs fentanyl 50 mcg/hr transdermal 50 mcg transdermal Q72H #5 ea 06/26/24 06/27/24 Rx patch formoterol fumarate 20 mcg/2 mL 0 mcg inhalation BIDR 06/27/24 06/27/24 History solution for nebulization (Perforomist) pantoprazole 40 mg tablet,delayed 0 mg PO QAM 06/27/24 06/27/24 History release umeclidinium 62.5 mcg/actuation 0 inh inhalation DAILY 06/27/24 06/27/24 History blister powder for inhalation (Incruse Ellipta) aspirin 81 mg tablet,delayed 81 mg PO QAM #30 tabs 06/29/24 Rx release atorvastatin 40 mg tablet 40 mg PO QAM #30 tabs 06/29/24 Rx bumetanide 1 mg tablet 1 mg PO BID #60 tabs 06/29/24 Rx isosorbide mononitrate 60 mg 60 mg PO QAM #30 tabs 06/29/24 Rx tablet,extended release 24 hr morphine concentrate 100 mg/5 mL 5 - 10 mg (0.25 - 0.5 mL) PO Q4H 06/29/24 Rx (20 mg/mL) oral solution PRN pain or shortness of breath #30 mL sacubitril 24 mg-valsartan 26 mg 1 tab PO BID #60 tabs 11/21/24 Rx tablet (Entresto) spironolactone 25 mg tablet 25 mg PO QAM #30 tabs 06/29/24 Rx Patient History Medical History Refusal of blood transfusions as patient is Anabaptism Lung cancer metastatic to brain Chronic respiratory failure Takotsubo cardiomyopathy history of Takotsubo cardiomyopathy per [place] [facility] Aneurysmal dilatation AAA, 3.4 cm History of COVID-19 07/2023 Lumbar disc herniation Peripheral neuropathy bilateral legs Hx of deep venous thrombosis years ago Anxiety Onychomycosis Hypotension still occurring occasionally Hypertensive urgency History of TIA (transient ischemic attack) 2018, no deficits History of myocardial infarction x 5 Surgical History History of cardiac cath History of cholecystectomy History of section History of coronary artery stent placement Family History Mother Myocardial infarction Daughter Myocardial infarction Denies family history of Ovarian cancer Prostate cancer Breast cancer Colorectal cancer Social History (Updated 06/29/24 @ 08:49 by NIC Jules) Smoking Status: Current some day smoker Tobacco Type: Cigarettes Age Started Using Tobacco: 15; packs per day: 1; Cigarettes Per Day: half a pack; Second Hand Exposure: No; Do You Dip or Chew Tobacco: No; Hx Alcohol Use: No Hx Substance Use: No Preferred Language: Kazakh Communication Ability: Effective Visual Impairment: No Limitations Epic Manager Required: No Beliefs That Will Affect Care: Islam Islam Beliefs: Anabaptism: Refusal of Blood Transfusion marital status: Current Living Situation: Spouse and Family Current Living Situation Comment: lives at home with . current occupational status: disabled How many Children do You have: 6 How many Children do You have Comment: 11 children, 6 biologic - 2 , son murdered in 2022 Feels Safe at Home: Yes Childhood Exposure to Second-Hand Smoke: Yes Diet: diabetic and regular caffeine: Yes (Coffee) Dental Care, Regularly: No Physical Activity Frequency: Daily Physical Activity Frequency Comment: Daily housework/activites Seatbelt Use: always Sunscreen Use: No Assistive Devices: Hospital Bed Review of Systems Constitutional: + malaise and + weakness Eyes: no problem reported Respiratory: + cough, + chest congestion, + dyspnea a nd + dyspnea on exertion Cardiovascular: + dyspnea, + dyspnea at rest, + orthopne a, + palpitations and + edema; no chest pain Gastrointestinal: + early satiety; no nausea, no vomiting and no constipation Musculoskeletal: generalized weakness Neurologic: + generalized weakness Physical Exam Physical Exam: Gen.: No acute distress. Alert. Oriented. HEENT: Anicteric sclera. Neck: No obvious JVD. Cardiac: Regular. Normal S1-S2. 2/6 mid-to-late peaking systolic ejection murmur. Pulmonary: Decreased breath sounds throughout with expiratory wheezing bilaterally. Abdomen: Soft, nontender, nondistended, with normoactive bowel sounds. No bruits noted. Extremities: 2+ radial pulses bilaterally. 2+ posterior tibialis pulses bilaterally. No significant edema. No cyanosis. Results & Data Vital Signs (Past 12 Hours) Vital Signs Temp Pulse Pulse Resp BP Pulse Ox O2 Del Method 06/29/24 07:27 75 20 92 Nasal Cannula 06/29/24 07:00 122/81 06/29/24 07:00 37.2 C 74 20 95 06/29/24 05:00 75 20 100/58 L 93 Nasal Cannula 06/29/24 04:00 77 22 123/68 94 Nasal Cannula 06/29/24 02:00 37.1 C 73 22 105/61 93 Nasal Cannula 06/28/24 23:51 78 20 95 06/28/24 23:09 74 06/28/24 23:00 37.6 C H 75 20 138/85 95 Nasal Cannula O2 Flow Rate FiO2 06/29/24 07:27 2 06/29/24 07:00 06/29/24 07:00 06/29/24 05:00 2 06/29/24 04:00 06/29/24 02:00 2 06/28/24 23:51 25 06/28/24 23:09 06/28/24 23:00 2 Laboratory Results Abnormal lab results 06/28/24 06/28/24 06/28/24 Range/Units 10:58 14:34 21:08 WBC (4.8-10.8) K/ul RBC (4.20-5.40) M/uL Hgb (12.0-16.0) g/dl Hct (37.0-47.0) % RDW Std Deviation (36.4-46.3) fL RDW Coeff of Chanel (11.5-14.5) % Lymph # (Auto) (1.20-3.40) K/uL Activ Coag Time Kaolin 171 H (94-140) SECONDS Heparin Anti-Xa, Unfract (0.3-0.7) IU/ml POC Glucose 147 H 107 H (70-99) mg/dl 06/29/24 Range/Units 04:51 WBC 3.16 L (4.8-10.8) K/ul RBC 3.77 L (4.20-5.40) M/uL Hgb 11.4 L (12.0-16.0) g/dl Hct 35.1 L (37.0-47.0) % RDW Std Deviation 61.4 H (36.4-46.3) fL RDW Coeff of Chanel 17.9 H (11.5-14.5) % Lymph # (Auto) 0.58 L (1.20-3.40) K/uL Activ Coag Time Kaolin (94-140) SECONDS Heparin Anti-Xa, Unfract 0.26 L (0.3-0.7) IU/ml POC Glucose (70-99) mg/dl Diagnostic Findings CBC 06/29/24 Range/Units 04:51 WBC 3.16 L (4.8-10.8) K/ul RBC 3.77 L (4.20-5.40) M/uL Hgb 11.4 L (12.0-16.0) g/dl Hct 35.1 L (37.0-47.0) % Plt Count 157 (130-400) K/uL Neut # (Auto) 2.00 (1.40-6.50) K/uL Lymph # (Auto) 0.58 L (1.20-3.40) K/uL Price # (Auto) 0.45 (0.11-0.59) K/uL Eos # (Auto) 0.09 (0.00-0.50) K/uL Baso # (Auto) 0.01 (0.00-0.20) K/uL Comprehensive Metabolic Panel 06/29/24 Range/Units 04:51 Sodium 137 (136-145) mmol/L Potassium 3.7 (3.5-5.1) mmol/L Chloride 101 (98-107) mmol/L Carbon Dioxide 30 (21-32) mmol/L BUN 13 (6-23) mg/dl Creatinine 0.83 (0.6-1.2) mg/dl Glucose 94 (70-99(Fasting)) mg/dl Calcium 9.2 (8.6-10.3) mg/dl Intake and Output 06/28/24 06/29/24 06/29/24 22:59 06:59 14:59 Intake Total 669.951 / 1583.567 168 / 1583.567 114.00 / 114.00 Output Total 1550 / 3460 410 / 3460 Balance -880.049 / -1876.433 -242 / -1876.433 114.00 / 114.00 Intake: IV 59.951 / 823.567 168 / 823.567 114.00 / 114.00 Doxycycline Hyclate 100 mg In 100 / 200 Dextrose 5% Mini-B 100 ml @ 50 mls/hr IV Q12H [facility] Rx#:[id number] Heparin Sodium/Dextrose 25,000 59.951 / 423.467 68 / 423.467 114.00 / 114.00 units In 500 ml @ 850 UNITS/HR 17 mls/hr IV .Q24H [facility] Rx#: [id number] Oral 610 / 760 Output: Urine 60 / 60 Urine Amount (Catheter) 1550 / 3400 350 / 3400 [place]/Indwelling 1550 / 3400 350 / 3400 Other: Weight 94 kg Chest X-Ray 06/27/24 06:38 EXAM: XR chest 1V portable CLINICAL HISTORY: DYSPNEA WTW TECHNIQUE: X-ray of the chest, portable view. COMPARISON: CR Chest DATED 05/06/2024 FINDINGS: Left basal opacity unchanged with respect to the prior study. An increase in interstitial patterns in both lungs Normal configuration of the mediastinum. The paxton are normal in size and position. The cardiac size appears increased. The bony thorax is unremarkable. The costophrenic and cardiophrenic angles are clear. IMPRESSION: 1. An increase in interstitial patterns in both lungs. The differential consideration is an infection versus bronchitis or bronchovascular congestion. 2. Left basal opacity unchanged for the prior study. It is suggested to rule out pneumonia. CT is recommended. Electronically signed by Liliya Zazueta 06-27-2024 07:50 AM Chest CTA 06/27/24 07:20 CT angio chest PE protocol CT DOSE: 968.9 mGy.cm HISTORY: 64 years-old Female with COPD, CHF, PE< PNA. Acute shortness of breath TECHNIQUE: Multiple CTA images of the chest were obtained after the intravenous administration of 80 ml Optiray. Coronal and sagittal MIPS were obtained from the axial data set and were submitted for review. All measurements were obtained according to NASCET criteria. A dose lowering technique was utilized adhering to the principles of ALARA. COMPARISON: 05/06/2024 FINDINGS: CTA: Heart is mildly enlarged. There is no pericardial effusion. Extensive coronary artery calcifications. Atherosclerosis of the thoracic aorta without aneurysm. Respiratory motion limits the study. No pulmonary emboli are identified. CT CHEST: Unremarkable thyroid. There are a few borderline-enlarged mediastinal and hilar lymph nodes measuring up to 12 mm. A precarinal 12 mm lymph node image 148 previously measured 8 mm. 11 mm subcarinal lymph node image 141 previously measured 8 mm. A 12 mm right hilar lymph node has also increased in size. Trace right and small left pleural effusions. Respiratory motion limits the study. Progressive intralobular septal thickening is noted along with bronchial wall thickening and moderate pulmonary emphysema. Mild patchy bibasilar airspace opacities. Left perihilar fibrosis redemonstrated along with a residual 5 cm masslike consolidation within the left lower lobe on image 88 series 4 which is generally unchanged from the comparison study. Mild tracheobronchial secretions. Atrophic left kidney. No acute upper abdominal abnormality. No acute fracture. IMPRESSION: 1. No pulmonary emboli identified. 2. Cardiomegaly with interstitial pulmonary edema, trace right and small left pleural effusions. 3. Mild airspace opacities of the lung bases and subpleural lungs may represent atelectasis versus a superimposed pneumonitis. 4. Left perihilar fibrosis redemonstrated along with an unchanged masslike area of consolidation the left lower lobe measuring 5 cm. 5. Mild mediastinal and hilar lymphadenopathy has increased in size from 05/06/2024. ACT 112: Negative or not required by law. The above report was generated using voice recognition software. It may contain grammatical, syntax or spelling errors. Electronically signed by: Garret Bowles M.D. 06/27/2024 8:29 AM Medications Administered Current Inpatient Medications Apixaban (Apixaban 5 Mg Tablet) 5 mg PO BID [facility] Stop: 07/29/24 07:44 Aspirin (Aspirin 81 Mg Ectab) 81 mg PO QAM [facility] Stop: 07/28/24 08:59 Last Admin: 06/29/24 07:42 Dose: 81 mg Atorvastatin Calcium (Atorvastatin 40 Mg Tab) 40 mg PO QAM [facility] Stop: 07/28/24 08:59 Last Admin: 06/29/24 07:42 Dose: 40 mg Budesonide (Budesonide 0.5 Mg/2 Ml Vial (Pulmicort)) 0.5 mg NEB BID [facility] Stop: 07/27/24 20:59 Last Admin: 06/29/24 07:26 Dose: 0.5 mg Calcium Carbonate (Calcium Carbonate 500 Mg Chewable Tab) 1,500 mg PO BID PRN PRN Reason: Indigestion Stop: 07/29/24 07:34 Dextrose (Dextrose 50% 50 Ml Syringe) 25 - 50 ml IV UD PRN; Protocol PRN Reason: Hypoglycemia Protocol Stop: 07/27/24 09:43 Formoterol Fumarate (Formoterol 20 Mcg/2 Ml Vial) 20 mcg INH BIDR [facility] Stop: 07/27/24 18:59 Last Admin: 06/29/24 07:27 Dose: 20 mcg Glucagon (Glucagon For Inj 1 Mg Vial) 1 mg SQ UD PRN; Protocol PRN Reason: Hypoglycemia Protocol Stop: 07/27/24 09:43 Glucose (Glucose 40% Gel 15 Gm Tube) 15 - 30 gm PO UD PRN; Protocol PRN Reason: Hypoglycemia Protocol Stop: 07/27/24 09:43 Glucose (Glucose 10 Tab/Tube) 4 - 8 tab PO UD PRN; Protocol PRN Reason: Hypoglycemia Protocol Stop: 07/27/24 09:43 Hydromorphone HCl (Hydromorphone Inj 0.5 Mg/0.5 Ml Syr) 0.5 mg IV Q3H PRN PRN Reason: Moderate Pain (4,5,6) on NRS Stop: 07/11/24 09:53 Last Admin: 06/29/24 04:03 Dose: 0.5 mg Hydromorphone HCl (Hydromorphone Inj 1 Mg/Ml Syringe) 1 mg IV Q3H PRN PRN Reason: Severe Pain (7,8,9,10) on NRS Stop: 07/11/24 09:53 Last Admin: 06/29/24 07:33 Dose: 1 mg Doxycycline Hyclate 100 mg/ (Dextrose) 100 mls @ 50 mls/hr IV Q12H [facility] Stop: 07/02/24 10:59 Last Infusion: 06/29/24 01:40 Dose: Infused Bumetanide 1 mg/ Syringe 4 mls @ 4 mls/min IV BID17 [facility] Stop: 07/27/24 16:59 Last Admin: 06/29/24 07:35 Dose: 4 mls/min Magnesium Sulfate/Dextrose (Magnesium Sulfate / D5w) 1 gm in 100 mls @ 50 mls/hr IV ONE ONE Stop: 06/29/24 09:59 Last Admin: 06/29/24 08:01 Dose: 50 mls/hr Insulin Aspart (Insulin Aspart Per Unit Charge) 0 units SC ACHS [facility] Stop: 07/27/24 11:59 Last Admin: 06/29/24 07:01 Dose: Not Given Isosorbide Mononitrate (Isosorbide Price Extended Rel 30 Mg Tabcr) 30 mg PO QAM [facility] Stop: 07/28/24 08:59 Last Admin: 06/29/24 07:42 Dose: 30 mg Lorazepam (Lorazepam 2 Mg/1 Ml Vial) 1 mg IV Q8H PRN PRN Reason: Anxiety/Agitation Stop: 07/27/24 09:53 Last Admin: 06/29/24 07:34 Dose: 1 mg Metoprolol Succinate (Metoprolol Succ 50mg Ext Rel Tab) 50 mg PO DAILY [facility] Stop: 07/28/24 08:59 Last Admin: 06/29/24 07:42 Dose: 50 mg Miscellaneous (Carbohydrates For Hypoglycemia ) 15 - 30 gm PO UD PRN PRN Reason: Hypoglycemia Protocol Stop: 07/27/24 09:43 Miscellaneous (Remove Nicoderm Patch) 1 each N/A DAILY@0859 [facility] Stop: 07/28/24 08:58 Last Admin: 06/29/24 07:34 Dose: 1 each Multi-Ingredient Mouthwash/Gargle (First - Mouthwash Blm 119 Ml) 10 ml MT ACHS PRN PRN Reason: dysphagia Stop: 07/27/24 09:50 Last Admin: 06/29/24 07:38 Dose: 10 ml Nicotine (Nicotine 21 Mg/24 Hr Tdsy) 1 patch TD QAM [facility] Stop: 07/28/24 08:59 Last Admin: 06/29/24 07:38 Dose: 1 patch Olanzapine (Olanzapine 2.5 Mg Tab) 2.5 mg PO DAILY PRN PRN Reason: Nausea And Vomiting Stop: 07/27/24 09:50 Ondansetron HCl (Ondansetron Inj 2 Mg/Ml 2 Ml Vial) 4 mg IV Q6H [facility] Stop: 07/27/24 09:59 Last Admin: 06/29/24 04:04 Dose: 4 mg Pantoprazole Sodium (Pantoprazole 40 Mg Tab) 40 mg PO QAM [facility] Stop: 07/28/24 08:59 Last Admin: 06/29/24 07:42 Dose: 40 mg Pregabalin (Pregabalin 150 Mg Cap) 150 mg PO TID [facility] Stop: 07/27/24 20:59 Last Admin: 06/29/24 07:34 Dose: 150 mg Ranolazine (Ranolazine 500 Mg Er Tab) 500 mg PO BID [facility] Stop: 07/27/24 20:59 Last Admin: 06/29/24 07:42 Dose: 500 mg Sacubitril/Valsartan (Valsartan/Sacubitril 26/24mg Tab) 1 tab PO BID [facility] Stop: 07/28/24 20:59 Last Admin: 06/29/24 07:42 Dose: 1 tab Spironolactone (Spironolactone 25 Mg Tab) 25 mg PO QAM [facility] Stop: 07/29/24 08:59 Last Admin: 06/29/24 07:42 Dose: 25 mg Umeclidinium [place] (Umeclidinium [place] 62.5mcg/Blister 7 Puffs/Inhaler) 1 puffs INH DAILY [facility] Stop: 07/28/24 08:59 Last Admin: 06/29/24 07:37 Dose: 1 puffs PG Care Time/CCT Total # of Minutes Spent Total Time Spent with Patient: Total time spent is greater than 50% in coordination of care (as documented) at patient's floor/unit and/or counseling patient: Advanced Care Planning [id number] Advanced Care Planning 30 [place] [address] INT INP/OBS CARE 255MIN Patient Type New History Expanded Problem Focused Exam Expanded Problem Focused Medical Decision Making Moderate Complexity Diagnoses Acute on chronic heart failure with preserved ejection fraction (HFpEF) I50.33 Non-ST elevation ND (NSTEMI) I21.4 Aortic stenosis I35.0 CAD (coronary artery disease) I25.10 S/P coronary artery stent placement Z95.5 Paroxysmal atrial fibrillation I48.0 Tobacco dependence F17.200 Hypertensive emergency I16.1 Additional Codes Advanced Care Planning - 93096 Advanced Care Planning 30 Min: 84947 Advanced Care Planning 30 Min ([id number])
--- NOTE | 2024-06-29 09:54 | Cardiology Progress Note ---
Date of Service June 29, 2024 Assessment & Plan (1) Acute HFrEF (heart failure with reduced ejection fraction): (2) Non-ST elevation SD (NSTEMI): (3) Cardiomyopathy: (4) Aortic stenosis: (5) CAD (coronary artery disease): (6) S/P coronary artery stent placement: (7) Paroxysmal atrial fibrillation: (8) Tobacco dependence: (9) Hypertensive emergency: Plan ASSESSMENT/PLAN: 1. Acute heart failure with reduced EF: Volume status much improved. Continue to keep negative net fluid balance as she does not appear to be hypovolemic and no azotemia with labs. She still requires supplemental oxygen, but also has COPD. Can likely reduce diuretics in the near future. Monitor electrolytes and renal function. Continue metoprolol succinate. Likely increase metoprolol succinate to 100 mg daily tomorrow if tolerated. Entresto and spironolactone initiated. Can consider SGLT2 inhibitor if no contraindication in the future. Low-sodium diet. Strict I's and O's. Daily weights. Recommend heart failure program on discharge. 2. CAD s/p PCI/NSTEMI: She has severe multivessel CAD including left main and subtotaled RCA with [id number] collaterals. There is also severe ostial circumflex disease. She is not an ideal CABG candidate and unclear if CT surgery would be agreeable to pursue CABG given her metastatic lung cancer to her brain. No further angina although did have different chest discomfort this morning. Continue antianginal therapy. Increase isosorbide mononitrate to 60 mg daily. Will consider increasing metoprolol succinate tomorrow for her heart failure regimen as well, if blood pressure remains stable. She has made it clear yesterday and again today that she does not want to pursue CABG as a surgical opinion was offered if she would like to pursue. Unclear if PCI would be an option, however it would be quite high risk. She did not wish to pursue this either and confirms today that she wants medical therapy with a goal of improving her quality of life as much as possible. Continue aspirin 81 mg daily. Continue statin therapy. Continue beta-brianna. 3. Aortic stenosis: Moderate to severe. She does not want to pursue aggressive measures from a surgical standpoint. 4. Paroxysmal atrial fibrillation: Sinus rhythm today. Continue beta-brianna. Continue anticoagulation for stroke risk reduction if no contraindication. 5. Hypertension: Severely hypertensive in the ER on presentation. Blood pressure now normotensive. Continue current plan. Adjusting medical therapy for her multivessel CAD and heart failure as above. 6. Dyslipidemia: Continue high intensity statin therapy. 7. 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 Follows with oncology. 8. Hypertensive emergency: As above. Now normotensive. 9. Acute on chronic hypercapnic hypoxic respiratory failure: Hypervolemic presentation, improved with intravenous diuretic therapy. BiPAP was used on presentation. Has known COPD with emphysema. Followed by pulmonology. 10. Tobacco abuse: Smoking cessation. 11. Disposition: Cardiology will continue to follow. Patient care discussed with primary hospitalist, Dr. Estrella. Recommended palliative care consultation yesterday, which is currently pending. Patient and family were agreeable. Poor prognosis. Highly complex medical issues. Admission and Anticipated Discharge Date Admission Date: June 27, 2024 Subjective Patient was seen this morning. She was resting in bed. She requested that her Henderson catheter be removed. She would like to use the bedside commode and get out of bed. She would like to go home. She denies shortness of breath but remains on supplemental oxygen. She had an episode of chest discomfort this morning that felt different than her angina. She stated that it felt like heartburn. It lasted approximately 10 minutes and occurred while in bed. She denies lightheadedness, syncope, near syncope, palpitations, edema, or bleeding. She was unaccompanied this morning. Physical Exam Physical Exam: Gen.: No acute distress. Alert. Oriented. HEENT: Anicteric sclera. Neck: No obvious JVD. Cardiac: Regular. Normal S1-S2. 2/6 mid-to-late peaking systolic ejection murmur. Pulmonary: Decreased breath sounds throughout with expiratory wheezing bilaterally. Abdomen: Soft, nontender, nondistended, with normoactive bowel sounds. No bruits noted. Extremities: 2+ radial pulses bilaterally. 2+ posterior tibialis pulses bilaterally. No significant edema. No cyanosis. Results & Data Vital Signs (Past 12 Hours) Vital Signs Temp Pulse Pulse Resp BP Pulse Ox O2 Del Method 06/29/24 08:00 119/73 06/29/24 08:00 37.0 C 78 19 91 06/29/24 08:00 Nasal Cannula 06/29/24 08:00 06/29/24 07:27 75 20 92 Nasal Cannula 06/29/24 07:00 122/81 06/29/24 07:00 122/81 06/29/24 07:00 122/81 06/29/24 07:00 37.2 C 74 20 95 06/29/24 05:00 75 20 100/58 L 93 Nasal Cannula 06/29/24 04:00 77 22 123/68 94 Nasal Cannula 06/29/24 02:00 37.1 C 73 22 105/61 93 Nasal Cannula 06/28/24 23:51 78 20 95 06/28/24 23:09 74 06/28/24 23:00 37.6 C H 75 20 138/85 95 Nasal Cannula O2 Del Method O2 Flow Rate O2 Flow Rate FiO2 06/29/24 08:00 06/29/24 08:00 06/29/24 08:00 2 06/29/24 08:00 Nasal Cannula 2 06/29/24 07:27 2 06/29/24 07:00 06/29/24 07:00 06/29/24 07:00 06/29/24 07:00 06/29/24 05:00 2 06/29/24 04:00 06/29/24 02:00 2 06/28/24 23:51 25 06/28/24 23:09 06/28/24 23:00 2 Laboratory Results Laboratory Results - last 24 hr 06/28/24 06/28/24 06/28/24 10:58 14:34 16:11 WBC RBC Hgb Hct MCV MCH MCHC RDW Std Deviation RDW Coeff of Chanel Plt Count MPV Immature Gran % (Auto) Neut % (Auto) Lymph % (Auto) Roosevelt % (Auto) Eos % (Auto) Baso % (Auto) Neut # (Auto) Lymph # (Auto) Roosevelt # (Auto) Eos # (Auto) Baso # (Auto) Immature Gran # (Auto) Activ Coag Time Kaolin 171 H Heparin Anti-Xa, Unfract Sodium Potassium Chloride Carbon Dioxide Anion Gap BUN Creatinine Est Cr Clr Drug Dosing eGFR BUN/Creatinine Ratio Glucose POC Glucose 147 H 91 Calcium Phosphorus Magnesium 06/28/24 06/28/24 06/29/24 21:08 22:54 04:51 WBC 3.16 L RBC 3.77 L Hgb 11.4 L Hct 35.1 L MCV 93.1 MCH 30.2 MCHC 32.5 RDW Std Deviation 61.4 H RDW Coeff of Chanel 17.9 H Plt Count 157 MPV 10.5 Immature Gran % (Auto) 0.9 Neut % (Auto) 63.4 Lymph % (Auto) 18.4 Roosevelt % (Auto) 14.2 Eos % (Auto) 2.8 Baso % (Auto) 0.3 Neut # (Auto) 2.00 Lymph # (Auto) 0.58 L Roosevelt # (Auto) 0.45 Eos # (Auto) 0.09 Baso # (Auto) 0.01 Immature Gran # (Auto) 0.03 Activ Coag Time Kaolin Heparin Anti-Xa, Unfract 0.31 0.26 L Sodium 137 Potassium 3.7 Chloride 101 Carbon Dioxide 30 Anion Gap 6 BUN 13 Creatinine 0.83 Est Cr Clr Drug Dosing 77.9 eGFR 78.18 BUN/Creatinine Ratio 15.7 Glucose 94 POC Glucose 107 H Calcium 9.2 Phosphorus 3.0 Magnesium 1.9 Diagnostic Findings Labs reviewed and notable for stable renal function, normal potassium, stable hemoglobin, mild leukopenia. Telemetry personally reviewed: Sinus rhythm. No arrhythmia. Pulmonary note reviewed from today. Medications Administered Current Inpatient Medications Apixaban (Apixaban 5 Mg Tablet) 5 mg PO BID [facility] Stop: 07/29/24 07:44 Aspirin (Aspirin 81 Mg Ectab) [facility] Stop: 07/28/24 08:59 Last Admin: 06/29/24 07:42 Dose: 81 mg Atorvastatin Calcium (Atorvastatin 40 Mg Tab) [facility] Stop: 07/28/24 08:59 Last Admin: 06/29/24 07:42 Dose: 40 mg Budesonide (Budesonide 0.5 Mg/2 Ml Vial (Pulmicort)) 0.5 mg NEB BIDR [facility] Stop: 07/29/24 18:59 Calcium Carbonate (Calcium Carbonate 500 Mg Chewable Tab) 1,500 mg PO BID PRN PRN Reason: Indigestion Stop: 07/29/24 07:34 Dextrose (Dextrose 50% 50 Ml Syringe) 25 - 50 ml IV UD PRN; Protocol PRN Reason: Hypoglycemia Protocol Stop: 07/27/24 09:43 Formoterol Fumarate (Formoterol 20 Mcg/2 Ml Vial) 20 mcg INH BIDR [facility] Stop: 07/27/24 18:59 Last Admin: 06/29/24 07:27 Dose: 20 mcg Glucagon (Glucagon For Inj 1 Mg Vial) 1 mg SQ UD PRN; Protocol PRN Reason: Hypoglycemia Protocol Stop: 07/27/24 09:43 Glucose (Glucose 40% Gel 15 Gm Tube) 15 - 30 gm PO UD PRN; Protocol PRN Reason: Hypoglycemia Protocol Stop: 07/27/24 09:43 Glucose (Glucose 10 Tab/Tube) 4 - 8 tab PO UD PRN; Protocol PRN Reason: Hypoglycemia Protocol Stop: 07/27/24 09:43 Hydromorphone HCl (Hydromorphone Inj 0.5 Mg/0.5 Ml Syr) 0.5 mg IV Q3H PRN PRN Reason: Moderate Pain (4,5,6) on NRS Stop: 07/11/24 09:53 Last Admin: 06/29/24 04:03 Dose: 0.5 mg Hydromorphone HCl (Hydromorphone Inj 1 Mg/Ml Syringe) 1 mg IV Q3H PRN PRN Reason: Severe Pain (7,8,9,10) on NRS Stop: 07/11/24 09:53 Last Admin: 06/29/24 07:33 Dose: 1 mg Doxycycline Hyclate 100 mg/ (Dextrose) 100 mls @ 50 mls/hr IV Q12H [facility] Stop: 07/02/24 10:59 Last Infusion: 06/29/24 01:40 Dose: Infused Bumetanide 1 mg/ Syringe 4 mls @ 4 mls/min IV BID17 [facility] Stop: 07/27/24 16:59 Last Admin: 06/29/24 07:35 Dose: 4 mls/min Magnesium Sulfate/Dextrose (Magnesium Sulfate / D5w) 1 gm in 100 mls @ 50 ml s/hr IV ONE ONE Stop: 06/29/24 09:59 Last Admin: 06/29/24 08:01 Dose: 50 mls/hr Insulin Aspart (Insulin Aspart Per Unit Charge) 0 units SC ACHS [facility] Stop: 07/27/24 11:59 Last Admin: 06/29/24 07:01 Dose: Not Given Isosorbide Mononitrate (Isosorbide [place] Extended Rel 30 Mg Tabcr) 30 mg PO QAM [facility] Stop: 07/28/24 08:59 Last Admin: 06/29/24 07:42 Dose: 30 mg Lorazepam (Lorazepam 2 Mg/1 Ml Vial) 1 mg IV Q8H PRN PRN Reason: Anxiety/Agitation Stop: 07/27/24 09:53 Last Admin: 06/29/24 07:34 Dose: 1 mg Metoprolol Succinate (Metoprolol Succ 50mg Ext Rel Tab) 50 mg PO DAILY [facility] Stop: 07/28/24 08:59 Last Admin: 06/29/24 07:42 Dose: 50 mg Miscellaneous (Carbohydrates For Hypoglycemia ) 15 - 30 gm PO UD PRN PRN Reason: Hypoglycemia Protocol Stop: 07/27/24 09:43 Miscellaneous (Remove Nicoderm Patch) 1 each N/A DAILY@0859 [facility] Stop: 07/28/24 08:58 Last Admin: 06/29/24 07:34 Dose: 1 each Multi-Ingredient Mouthwash/Gargle (First - Mouthwash Blm 119 Ml) 10 ml MT ACHS PRN PRN Reason: dysphagia Stop: 07/27/24 09:50 Last Admin: 06/29/24 07:38 Dose: 10 ml Nicotine (Nicotine 21 Mg/24 Hr Tdsy) 1 patch TD QAM [facility] Stop: 07/28/24 08:59 Last Admin: 06/29/24 07:38 Dose: 1 patch Olanzapine (Olanzapine 2.5 Mg Tab) 2.5 mg PO DAILY PRN PRN Reason: Nausea And Vomiting Stop: 07/27/24 09:50 Ondansetron HCl (Ondansetron Inj 2 Mg/Ml 2 Ml Vial) 4 mg IV Q6H [facility] Stop: 07/27/24 09:59 Last Admin: 06/29/24 04:04 Dose: 4 mg Pantoprazole Sodium (Pantoprazole 40 Mg Tab) 40 mg PO QAM [facility] Stop: 07/28/24 08:59 Last Admin: 06/29/24 07:42 Dose: 40 mg Pregabalin (Pregabalin 150 Mg Cap) 150 mg PO TID [facility] Stop: 07/27/24 20:59 Last Admin: 06/29/24 07:34 Dose: 150 mg Ranolazine (Ranolazine 500 Mg Er Tab) 500 mg PO BID [facility] Stop: 07/27/24 20:59 Last Admin: 06/29/24 07:42 Dose: 500 mg Sacubitril/Valsartan (Valsartan/Sacubitril 26/24mg Tab) 1 tab PO BID [facility] Stop: 07/28/24 20:59 Last Admin: 06/29/24 07:42 Dose: 1 tab Spironolactone (Spironolactone 25 Mg Tab) 25 mg PO QAM [facility] Stop: 07/29/24 08:59 Last Admin: 06/29/24 07:42 Dose: 25 mg Umeclidinium [place] (Umeclidinium [place] 62.5mcg/Blister 7 Puffs/Inhaler) 1 puffs INH DAILY [facility] Stop: 07/28/24 08:59 Last Admin: 06/29/24 07:37 Dose: 1 puffs PG Care Time/CCT Total # of Minutes Spent Total Time Spent with Patient: Total time spent is greater than 50% in coordination of care (as documented) at patient's floor/unit and/or counseling patient: Coding Level of Care Code 07999 SUB INP/OBS CARE 3/50MIN Diagnoses Acute HFrEF (heart failure with reduced ejection fraction) I50.21 Non-ST elevation SD (NSTEMI) I21.4 Cardiomyopathy I42.9 Aortic stenosis I35.0 CAD (coronary artery disease) I25.10 S/P coronary artery stent placement Z95.5 Paroxysmal atrial fibrillation I48.0 Tobacco dependence F17.200 Hypertensive emergency I16.1
[2024-06-29] MEDS: APIXABAN 5 MG TABLET PO SCH (10:23)
[2024-06-29 12:52] VITALS: TEMP 99.1; O2SAT 90
[2024-06-29 14:38] VITALS: BP 105/62
--- NOTE | 2024-06-29 14:47 | Discharge Summary ---
Discharge Summary Date of Service June 29, 2024 Principal Dx & Hospital Course #1 = Principal Diagnosis (1) Acute HFrEF (heart failure with reduced ejection fraction): Presented with acutely worsening shortness of breath, orthopnea, requiring BiPAP on admission with acute respiratory failure with hypoxemia and hypercapnia Chest CTA without pulmonary embolism but with small bilateral pleural effusions, pulmonary edema, cardiomegaly. Viral respiratory BioFire negative, BNP elevated at 1179 Initially given IV Lasix, nitro drip and admitted to ICU With NSTEMI with troponin peaking at 2900 Echocardiogram with severely reduced EF of 30-35% with significant inferior and inferolateral wall motion abnormalities, and moderate to severe aortic stenosis EKG showed new ST depressions in the inferior and lateral leads Diuresed with IV Bumex and improved, weaned off BiPAP to 2 L nasal cannula Cardiac catheterization 06/28 shows severe multivessel disease including left main disease Given that she has metastatic lung cancer currently on immunotherapy, and she does not desire open heart surgery due to being high risk, will pursue medical management and palliative medicine consultation for goals of care discussion Ultimately, pt decided to go home with Hospice and focus on comfort and quality of the time she has left. She is agreeable to continuing on GDMT for CHF but wants to stop treatment for her lung CA and understands this will certainly lead to her demise if her CHF and severe CAD does not catch up with her first. Dc to home on bumex 1mg po bid (increased dose from home dose), increased dose of isosorbide 60mg, metoprolol succinate Started Entresto and spironolactone here No need for SGLT-2i or further management as she will be on hospice (2) Coronary artery disease: S/p 5 stents, with the last being in 2018, with elevated troponin and ST depressions on ECG, with heart failure exacerbation NSTEMI as noted above with cardiac catheterization w/ severe, multivessel disease including 95% left main dz. Not good CABG candidate and does not desire surgery STarted aspirin, statin Was on heparin drip for 48 hrs, now back on home Eliquis Continue increased dose of isosorbide, heart failure medications as noted above Pursuing palliative approach and very anxious to get home as soon as possible (3) Aortic stenosis: Moderate on last echocardiogram, now with moderate to severe aortic stenosis Avoid overdiuresis and hypotension (4) Cancer related pain: Patient was previously on oxycodone total of 60 mg daily, but switched to fentanyl patch a few days prior to admission due to insurance coverage issues Opioids are for cancer related back pain Initially holding fentanyl patch to hypercapnia. 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, received a whole brain radiation recently Follows with [facility]CP; on maintenance atezolizumab but now plans to stop taking this on hospice Palliative medicine consultation appreciated Patient is going home with hospice due to metastatic cancer as well as severe inoperable CAD and severe CHF (6) Anxiety: continue home lorazepam 1 mg TID (7) Paroxysmal atrial fibrillation: continue Eliquis and metoprolol in NSR here (8) COPD (chronic obstructive pulmonary disease): Continue home inhalers and nebs now on O2 3LNC-ordered for pt at home (9) Tobacco dependence: Patient reports she is a current everyday tobacco cigarette smoker; 1 PPD (10) Diabetes mellitus, type 2: can dc metformin on discharge dc B12 supplement on hospice no need for glucose checks at home Plan Disposition: dc to home with hospice Notes For Next Care Provider Now on home hospice Admission HPI Per Admitting Provider Sanjuanita is a 64-year-old female with PMH of LLL small cell lung cancer with metastasis to the brain, COPD, CVD, hypothyroidism, HTN, NSTEMI, CAD, and coronary artery stent placement. She presented on 06/27 for acute onset of SOB that woke her from sleep around 3 AM. Patient was placed on BiPAP upon ED arrival. Patient's (Alon) is at the bedside, and most history is obtained from him at this time as patient is currently on BiPAP. He reports that she has had trouble breathing for the past couple days. SOB is both at rest and with exertion (but worse with exertion). She is unable to lie flat on her back and reports it is much worse when she lies flat. She often sits up in bed at night and leans forward to help her breathing. Patient does not use supplemental oxygen at baseline or CPAP at night. No sick contacts. Her SOB has gotten worse over the past 2 days, and she can barely walk from her living room to the kitchen without eating to sit down. reports that she has also been lightheaded whenever she walks and often says that she feels like she is going to "faint". No syncopal episodes to his knowledge. also reports she has complained of intermittent chest pain both at rest and with exertion for the past several months. At time of admission, patient reports she does not have any chest pain; she reports it is a 0/10. She does report that she is having difficulty breathing and that she feels fatigued. Patient reports she did not take any of her regular morning medications today. Per , only recent change was that her oxycodone for cancer-related back pain was stopped by insurance this week, and she was started on a fentanyl patch yesterday (patient reports that she took off her fentanyl patch last night as she was concerned that this might be related to why she had difficulty breathing). Patient is hypertensive at 193/114, tachycardic at 101 bpm, and tachypneic at 26 RPM at time of admission. ED course: BiPAP Albuterol neb Lorazepam 0.5 mg IV x 2 Hydromorphone 0.5 mg Furosemide 40 mg IV Nitroglycerin/D5w Abbreviated ROS: Patient endorses SOB both at rest and with exertion, orthopnea, lightheadedness with walking, and generalized fatigue. Patient denies fever, syncope, or chest pain at present. Discharge Exam Constitutional no acute distress Respiratory normal respiratory effort; no cough Cardiovascular Extremities: + edema (Trace lower extremity edema) Gastrointestinal (Abdomen) normal bowel sounds, soft, nontender, no hepatosplenomegaly Psychiatric Orientation: alert and oriented x 3 Discharge Plan Discharge Items Patient Disposition: Hospice - Home Reason For Visit: ACUTE DECOMPENSATED HF, FLASH PULMONARY EDEMA Discharge Diagnosis: Congestive heart failure Non ST elevation myocardial infarction (heart attack) Metastatic lung cancer Severe coronary artery disease Condition on Discharge: Fair Activity: As commented below Lifting: None Bathing: No limitations Exercise/Sports: As tolerated Non-emergency contact: Primary Care Provider Call non-emergency contact if: you have any medication questions and your symptoms worsen Diet: Low Sodium (2gm) Addtl Attending Provider Instructions: You were admitted with congestive heart failure and a heart attack. You were found to have severe heart disease/blockages in your heart. These would require open heart surgery to fix and because of your underlying cancer and with being high risk for and complications from the procedure, you have chosen to not have open heart surgery. It is not even clear if you would be an acceptable candidate for surgery because you are on treatment for your cancer. You have chosen to go home with hospice and focus on comfort and improving the quality of your life for the time you have left. You should continue using oxygen at 2-3 L via the nasal cannula. You were started on a few new medications to keep the fluid off your lungs and help you breathe more easily with your hea rt failure. You can continue using the fentanyl patch and also can take liquid morphine drops as needed for breakthrough pain and for shortness of breath. You can continue taking the ativan as needed for anxiety. ACTIVITY RECOMMENDATIONS: Excess manipulation of the wrist should be avoided for the next 24-48 hours. * No lifting over 2 pounds (approximately a 1/2 gallon of milk) with the utilized arm for 24 hours. * No strenuous activity such as bowling or tennis for 3 days. * Keep the site of the procedure covered with a bandage for 24 hours. *You may shower the day after the procedure. Do not take a tub bath or submerge the puncture site in water for the next 3 days. *Do not operate any motorized equipment for 3 days. SPECIAL CARE INSTRUCTIONS: The site may be slightly bruised and sore following your procedure. Should any of the following occur, contact the Dr. who performed your procedure. 1. Redness/inflammation, swelling, chills, or fever, or colored drainage at procedure site within 3-7 days after your procedure. 2. Coldness, discoloration, ongoing numbness, severe pain, or swelling. Expect mild tingling of hand and tenderness at the puncture site for up to three days. If this persists beyond three days, or other symptoms develop, notify the Dr. who performed your procedure. BLEEDING: If the procedure site on your wrist begins to bleed, do not panic 1. Place 1 or 2 fingers firmly just slightly above the insertion site to stop the bleeding. You may be able to feel your pulse as you hold pressure. 2. Lift your finger after 5 minutes to see if the bleeding has stopped. 3. Once the bleeding has stopped, gently wipe the wrist area clean with a bandage. * If the bleeding from your wrist does not stop after 10 minutes, or if there is a large amount of bleeding or spurting, call 911 (do not drive yourself to the hospital). SKIN IRRITATION: * You may experience some redness and/or swelling in the area where radiation was administered. If any skin irritation occurs, please contact your family physician. Call your Primary Care doctor if any of the following symptoms or problems start or get worse: * Shortness of breath or difficulty breathing * Wake up at night short of breath * Chest pain * Cough * Swelling of your hands, feet, or legs * More fatigued or tired with your normal activity * Palpitations - sudden fast heart beats WEIGHT * Weigh yourself every morning after using the bathroom. * Use the same scale. * Wear the same amount of clothing. * Write your weight down on a chart. * Call your Primary Care doctor if you gain more than 2-3 pounds in 1-2 days. MEDICATIONS * Use this discharge instruction sheet for medication instructions. * Take your medications at the time your doctor ordered. * Do not skip a dose of your medicines. * If you miss a dose of medicine, take it as soon as possible, but DO NOT DOUBLE A DOSE. * Read your medicine information when you get home. * Know all of the side effects of your medicine. If in doubt, ask your pharmacist * Call your Primary Care doctor's office if you have any side effects. * Be sure all of your doctors know what medicine and herbs you take (including cold, flu, and herbal medicine). Take the following with you to your follow-up doctor appointments: * Weight Chart * Medication List * List of questions Do not drink excessive alcohol, beer or wine. Pending Studies at Discharge: No Stand-Alone Forms: [facility] Medications and DC Order Prescriptions: New atorvastatin 40 mg Tablet 40 mg PO QAM Qty: 30 0RF isosorbide mononitrate 60 mg Tablet Extended Release 24 Hr 60 mg PO QAM Qty: 30 0RF spironolactone 25 mg Tablet 25 mg PO QAM Qty: 30 0RF Entresto 24-26 mg Tablet 1 tab PO BID Qty: 60 0RF aspirin 81 mg Tablet,Delayed Release (Dr/Ec) 81 mg PO QAM Qty: 30 0RF morphine concentrate 100 mg/5 mL (20 mg/mL) solution 5 - 10 mg PO Q4H PRN (Reason: pain or shortness of breath) Qty: 30 0RF Continued (DME) [place] [facility] [place] .Route Qty: 1 0RF Rx Instructions: w/ a seat and hand brakes (DME) [place] [facility] [place]ructions .Route Qty: 1 0RF Rx Instructions: As directed (DME) Wheelchair (Manual) Device See Rx Instructions .Route Qty: 1 0RF Rx Instructions: As directed (DME) WHEEL MOBILITY SCOOTER See Rx Instructions .Route .MEDSUPPLY Qty: 1 0RF Rx Instructions: As directed (DME) transport chair See Rx Instructions .Route .MEDSUPPLY Qty: 1 0RF Rx Instructions: As directed Magic Mouthwash 300 mL mouthwash 10 ml mucous membrane ACHS PRN (Reason: dysphagia) Qty: 300 3RF (DME) OneTouch Ultra Test Strip See Rx Instructions .Route Qty: 100 0RF Rx Instructions: As directed budesonide 0.5 mg/2 mL suspension for nebulization 0.5 mg NEB BID Qty: 60 6RF Eliquis 5 mg tablet 5 mg PO BID Qty: 60 3RF Rx Instructions: start 10/26/23 in the evening ondansetron HCl 4 mg tablet 4 mg PO QID PRN (Reason: nausea and vomiting) Qty: 120 5RF pregabalin [Lyrica] 150 mg capsule 150 mg PO TID Qty: 90 2RF lorazepam 1 mg tablet 1 mg PO TID PRN (Reason: anxiety, cancer) Qty: 90 5RF fentanyl 50 mcg/hr patch 72 hour 50 mcg transdermal Q72H Qty: 5 0RF (DME) blood-glucose meter [OneTouch Ultra2 Meter[place] [facility] [place] .Route Qty: 1 0RF Rx Instructions: As directed (DME) lancets [OneTouch Delica Plus Lancet] [address] [facility] [place] See Rx Instructions .Route Qty: 100 0RF Rx Instructions: As directed albuterol sulfate 90 mcg/actuation HFA aerosol inhaler 2 puff inhalation QID PRN (Reason: shortness of breath or wheezing) Qty: 6.7 3RF promethazine-codeine 6.25-10 mg/5 mL syrup 5 ml PO Q8H PRN (Reason: cough) Qty: 473 0RF (DME) Emotional Support Animal See Rx Instructions .Route .MEDSUPPLY Qty: 1 0RF Rx Instructions: Patient needs this for Anxiety and overall health nitroglycerin 0.4 mg tablet, sublingual 0.4 mg sublingual Q5M PRN (Reason: chest pain) Qty: 30 4RF Rx Instructions: do not exceed 3 doses per episode. call 911 if ongoing chest pain. levocetirizine [Xyzal] 5 mg tablet 5 mg PO DAILY PRN (Reason: allergies) Rx Instructions: Unable to verify OTC meds at this date/time pantoprazole 40 mg tablet,delayed release (DR/EC) 0 mg PO QAM Rx Instructions: Unable to verify med with patient/family/pharmacy at this date/time. Not on file w/ pharmacy. Original Directions: 40mg by mouth daily formoterol fumarate [Perforomist] 20 mcg/2 mL solution for nebulization 0 mcg inhalation BIDR Rx Instructions: Unable to verify med with patient/family/pharmacy at this date/time. Not on file w/ pharmacy. Original Directions: 20mcg BID Incruse Ellipta 62.5 mcg/actuation blister with device 0 inh inhalation DAILY Rx Instructions: Unable to verify med with patient/family/pharmacy at this date/time. Not on file w/ pharmacy. Original Directions: 1 inh daily olanzapine 2.5 mg tablet 2.5 mg PO UD PRN (Reason: Nausea And Vomiting) prochlorperazine maleate 10 mg tablet 10 mg PO DIRECTED PRN (Reason: NAUSEA/VOMITING) ranolazine 500 mg Tablet Extended Release 12 Hr 500 mg PO BID Qty: 60 4RF metoprolol succinate 50 mg tablet extended release 24 hr 50 mg PO DAILY Qty: 30 4RF Changed bumetanide 1 mg tablet 1 mg PO BID Qty: 60 0RF Discontinued metformin 500 mg tablet 0 mg PO BID Patient Comments: admits has not been taking Rx Instructions: Unable to verify med with patient/family/pharmacy at this date/time. Not on file w/ pharmacy. Original Directions: 500mg by mouth BID isosorbide mononitrate 30 mg tablet extended release 24 hr 30 mg PO QAM Qty: 30 5RF cyanocobalamin (vitamin B-12) 500 mcg tablet 500 mcg PO QAM Qty: 30 5RF oxycodone-acetaminophen [Percocet] 10-325 mg tablet 1 tab PO Q4H PRN (Reason: cancer related breakthrough pain) Qty: 180 0RF Hold Instructions: not covered by insurance nystatin 100,000 unit/mL suspension See Rx Instructions PO DAILY 10 Days Qty: 60 0RF Rx Instructions: 4mL PO (swish around mouth and retain for as long as possible before swallowing orally daily). nicotine 21-14-7 mg/24 hr patch, TD daily, sequential 1 patch transdermal DAILY Patient Comments: patient states not currently wearing Rx Instructions: Unable to verify OTC meds at this date/time. apply 1-21 mg NICOTINE PATCH daily for 28 days; follow with 1-14 mg PATCH daily for 14 days, then 1-7mg PATCH daily for 14 days transdermal Discharge Orders: Discharge Order- CHF (Routine); Ordered 06/29/24 Ordered By: Juanita Estrella Admission Data Admit Date/Time: 06/27/24 09:03 Attending Provider: Juanita Estrella Admit Provider: Juanita Estrella Primary Care Provider: Katarina Andre Other Providers: Brian Lizama; Yumiko Lilly; Juanita Estrella; Norma Trujillo Other Interventions: Discharge Summary Assessment (RN) Last Done: 06/29/24 14:34 Hospital Stay Data Consultations 06/27/24 09:05 Consult Cardiology Routine 06/27/24 09:44 Consult Controls Design Engineer Routine 06/27/24 10:11 ED Decision to Admit Stat 06/28/24 15:03 Consult Palliative Care Routine Procedures Performed Operation Date: 06/28/24 14:00 Actual Procedures p Cineradiography w/Routine Exam - Brian Lizama MD s Cath, Coronaries ONLY (no LV) - Brian Lizama MD Diagnostic Imagining Performed 06/27/24 07:20 CT for pulmonary embolism PE [CT angio chest PE protocol] Stat 06/28/24 13:44 CL Cath Imgs for PACS use only Routine Pending Results Patient Have Any Pending Studies at Discharge: No Discharge Instructions Given to Patient (Per Discharging Provider) You were admitted with congestive heart failure and a heart attack. You were found to have severe heart disease/blockages in your heart. These would require open heart surgery to fix and because of your underlying cancer and with being high risk for and complications from the procedure, you have chosen to not have open heart surgery. It is not even clear if you would be an acceptable candidate for surgery because you are on treatment for your cancer. You have chosen to go home with hospice and focus on comfort and improving the q uality of your life for the time you have left. You should continue using oxygen at 2-3 L via the nasal cannula. You were started on a few new medications to keep the fluid off your lungs and help you breathe more easily with your heart failure. You can continue using the fentanyl patch and also can take liquid morphine drops as needed for breakthrough pain and for shortness of breath. You can co ntinue taking the ativan as needed for anxiety. ACTIVITY RECOMMENDATIONS: Excess manipulation of the wrist should be avoided for the next 24-48 hours. * No lifting over 2 pounds (approximately a 1/2 gallon of milk) with the utilized arm for 24 hours. * No strenuous activity such as bowling or tennis for 3 days. * Keep the site of the procedure covered with a bandage for 24 hours. *You may shower the day after the procedure. Do not take a tub bath or submerge the puncture site in water for the next 3 days. *Do not operate any motorized equipment for 3 days. SPECIAL CARE INSTRUCTIONS: The site may be slightly bruised and sore following your procedure. Should any of the following occur, contact the Dr. who performed your procedure. 1. Redness/inflammation, swelling, chills, or fever, or colored drainage at procedure site within 3-7 days after your procedure. 2. Coldness, discoloration, ongoing numbness, severe pain, or swelling. Expect mild tingling of hand and tenderness at the puncture site for up to three days. If this persists beyond three days, or other symptoms develop, notify the Dr. who performed your procedure. BLEEDING: If the procedure site on your wrist begins to bleed, do not panic 1. Place 1 or 2 fingers firmly just slightly above the insertion site to stop the bleeding. You may be able to feel your pulse as you hold pressure. 2. Lift your finger after 5 minutes to see if the bleeding has stopped. 3. Once the bleeding has stopped, gently wipe the wrist area clean with a bandage. * If the bleeding from your wrist does not stop after 10 minutes, or if there is a large amount of bleeding or spurting, call 911 (do not drive yourself to the spital). SKIN IRRITATION: * You may experience some redness and/or swelling in the area where radiation was administered. If any skin irritation occurs, please contact your family physician. Call your Primary Care doctor if any of the following symptoms or problems start or get worse: * Shortness of breath or difficulty breathing * Wake up at night short of breath * Chest pain * Cough * Swelling of your hands, feet, or legs * More fatigued or tired with your normal activity * Palpitations - sudden fast heart beats WEIGHT * Weigh yourself every morning after using the bathroom. * Use the same scale. * Wear the same amount of clothing. * Write your weight down on a chart. * Call your Primary Care doctor if you gain more than 2-3 pounds in 1-2 days. MEDICATIONS * Use this discharge instruction sheet for medication instructions. * Take your medications at the time your doctor ordered. * Do not skip a dose of your medicines. * If you miss a dose of medicine, take it as soon as possible, but DO NOT DOUBLE A DOSE. * Read your medicine information when you get home. * Know all of the side effects of your medicine. If in doubt, ask your pharmacist * Call your Primary Care doctor's office if you have any side effects. * Be sure all of your doctors know what medicine and herbs you take (including cold, flu, and herbal medicine). Take the following with you to your follow-up doctor appointments: * Weight Chart * Medication List * List of questions Do not drink excessive alcohol, beer or wine. Total Time Total Time Spent Total Time Spent (In Minutes): 35 min Total Time Includes: Examination of the Patient, Discharge Planning, Medication Reconciliation and Communication With Other Providers (Cardiology, Pulmonology,Palliative Med) Coding Level of Care Code 10561 INP/OBS DISCH >30 MIN Diagnoses Acute HFrEF (heart failure with reduced ejection fraction) I50.21 Coronary artery disease of [place] artery of [place] heart with stable angina pectoris I25.118 Associated angina: with stable angina Coronary Disease-Associated Artery/Lesion type: [place] artery [place] vs. transplanted heart: [place] heart Aortic stenosis I35.0 Cancer related pain G89.3 Small cell carcinoma of lower lobe of left lung C34.32 Anxiety F41.9 Paroxysmal atrial fibrillation I48.0 COPD (chronic obstructive pulmonary disease) J44.9 COPD type: unspecified COPD Tobacco dependence F17.200 Diabetes mellitus, type 2 E11.9
--- NOTE | 2024-06-29 15:09 | Palliative Family Discussion ---
Date of Service June 29, 2024 Patient Directed Conference Time of Meetin Participants: Shila Ronnie AGACNP Patient participation: yes Patient Support System: Spouse Ady, dtr Selam and multiple other children Other Healthcare Provider Participation: None Meeting Location: at bedside Advanced Directive available: No If yes, descriptors: The patient's surrogate medical decision maker participated: spouse Legally authorized health care proxy: n/a Other surrogate: Pt verbally expressed that she trust and would want her spouse Ady Santos ([phone]) to be her primary MDM proxy with her daughter Selam Trujillo ([phone])secondary proxy in event that she is lacks decisiona l capacity. A family meeting was held for SEAN SANTOS. This meeting was necessary for determining the appropriate course of treatment. Met with pt and large family at bedside. Pt was drowsy but arousable and able to convey working knowledge of her medical history and admission course. Pt does currently possess decisional capacity given her ability to relay adequate knowledge of her medical history, HPI and current hospital course as well as treatment options and risks/benefits of those treatments, and ability to make decisions based on this knowledge. She shaared that she does not have a living will or advanced directive but verbally expressed that she trust and would want her spouse Ady Santos ([phone]) to be her primary MDM proxy with her daughter Selam Trujillo ([phone])secondary proxy in event that she is lacks decisional capacity. Pt shared that she is aware that her heart failure is very advanced and will only get worse from here. She shared that, given her limited prognosis, the most important thing to her is to be at home with her children and spouse. Family is appropriately tearful and supportive of pt and her wishes. Pt stated that she does not wish to have any further aggressive treatments and would like to go home now with hospice. She expressed concern that she "may any day" and does not wish to spend another minute in hospital. Discussed transition to comfort directed care and what home hospice might look like. Helped family and pt understand that hospice care is appropriate to maximize her quality of life when life prolonging therapies are no longer being pursued. Shared that the hospice team will be available to them for emotional support and symptom management but do not stay in home or offer 24hr hands on care/supervision. Selam shared that she is a SURG RN and would take care of the pt at home, and her siblings would join to be sure that the pt has 24hr care. Discussed continuing current medications through discharge to ensure stability for transport as well as risk of cardiovasular collapse at any time. Pt requests DNR/DNI at this time but would want to continue all other medications through this admission and complete POLST//enroll in hospice at home. Attending team and CM made aware of request for CAREER DEVELOPMENT DIRECTOR and discharge home with hospice. Topics of Discussion Topics of Discussion: 1. medical history/current medical condition/HPI and admission course 2. Continued life prolonging therapies vs comfort directed care 3. plan for discharge home with hospice 4. anticipatory guidance Other Content of Meetin. Opportunity given for participants to speak and ask questions. 2. Participants were assured of attention to patient comfort. 3. Reassurance provided. 4. Support was provided for informed, good-arcelia decisions. 5. Emotions expressed by family were acknowledged and addressed. 6. Follow-up Outpatient: will enroll with hospice care on arrival at home 7. Plan of Care: discharge home with ongoing hospice care * Dying patients fear dyspnea and pain, therefore, symptom control is one cornerstone of pulmonary palliative care. Dyspnea is a prominent symptom of the patient with advanced respiratory disease of any cause: nearly all patients with COPD had dyspnea during the last 3 days of their lives. Providers routinely care for patients with chronic or advanced respiratory diseases and critical illnesses. The ATS recognizes: the growing importance and complexity of palliative care for patients with life-threatening and life- limiting diseases and disorders and the need for improving professional competence and teamwork in providing such care. The statement strongly en dorses the concept that palliative care should be available to patients at all stages of illness and should be individualized based on the needs and preferences of the patient and the patients family. Clinicians should consult with palliative care specialists as appropriate for managing palliative care situations beyond the clinicians level of competence. * (ATS Clinical Policy Statement: Palliative Care for Patients with Respiratory Diseases and Critical Illnesses; Grace Dorsey et al., for the [employer], the [employer], the [employer], and the Respiratory Society* Diagnosis and Management of Stable Chronic Obstructive Pulmonary Disease: A Clinical Practice Guideline Update from the [employer], [employer], [employer] Society, and Respiratory Society . [employer]. 2011;155:179-191.) * Dying process: Discussed changes pt may move through in the dying process including but not limited to sleeping more, disorientation when awake, restlessness, diminished senses/inability to respond to stimulus although ability to be aware of them remains intact longer, and changes in body temperatures, skin changes/mottling/cyanosis, respiratory pattern changes, and oral secretions. Family verbalized understanding. The goal is to assure a peaceful . * EOL Rally: When a person facing the end of life rallies, they seem to become "more stable" - may want to talk or even begin taking PO; this phenomenon is usually seen as a sudden burst of energy before . This period of perking up can be accompanied by such a notable change in mental clarity that is often referred to as terminal lucidity. This change in cognition and behavior goes against everything families learn about the physical signs that the end of life is near. It is important to note that evidence-based data is elusive, if nonexistent. Theories support that it may be a search for a final, strong connection. Also, as organs shut down, they can release a steroid like compound that briefly rouses the body - in the specific case of brain tumors, swelling occurs in the confined space of the skull. The edema shrinks as EOL care patients are weaned off food and drink, waking up the brain a bit. Families and caregivers may grasp at what seems to be a turnaround in a loved ones health, however, the EOL Rally is a hallmark pre- sign. It is not uncommon for patients to show improvement before : they may want to talk while others may become restless or act as if they need to start preparing for a trip. Some patients will become more relaxed yet remain tuned in to what is going on around them, others will show signs of physical stability when, seconds before, they seemed on the verge of letting go. A rally can last for a few moments or even days. Short or long, these temporary improvements can have a profound effect on loved ones who are keeping sena. Like a moment of clarity for someone who has dementia, a rally is one last opportunity to connect with a loved one. Each persons experience is unique and impossible to predict with total accuracy. Life is full of questions, and some of them simply are not meant to be answered. Read more: h [email or web address] * Oxygen at EOL: For patients at the end of life, oxygen delivered by a nasal cannula provides no additional symptomatic benefit for relief of refractory dyspnea in patients with life-limiting illness compared with room air: there's a point at which that the oxygen level gets so low that it's no longer compatible with life. By providing supplemental oxygen, the dying process will be unnecessarily prolonged. Please use less burdensome but more effective strategies such as comfort care meds, oscillating fan, massage, repositioning, etc. (Evangelina AP, Quique CF, Ines PA, et al. Effect of palliative oxygen versus room air in relief of breathlessness in patients with refractory dyspnoea: a double-blind, randomised controlled trial. Lancet. 2010;376(2298):264-793. doi:10.1016/H6663-9097(02)3220082-8) * Secretions at EOL/management: I discussed with family that as the level of consciousness decreases in the dying process, patients lose their ability to swallow and clear oral secretions. As air moves over the secretions, which have pooled in the oropharynx and bronchi, the resulting turbulence produces noisy ventilation with each breath, described as gurgling or rattling noises. While there is no evidence that patients find this rattle disturbing, evidence from bereaved surveys suggests the noises can be disturbing to the patients visitors and caregivers who may fear that the patient is choking to . We recommend a combination of Non- Pharmacological and Pharmacological Treatments: * 1. Position the patient on their side or in a semi-prone position to facilitate postural drainage * 2. Communication with family and caregivers to reaffirm commitment to their loves ones care, reduce anxiety and fears. * 3. Gentle oropharyngeal suctioning is used although this can be ineffective when fluids are beyond the reach of the catheter. Avoid deep suctioning as it is very irritating. Note that frequent suctioning is disturbing to both the patient and the visitors. * 4. Reduction of fluid intake. * 5. Consider a 1-2 min Trendelenburg positioning, to move fluids up into the oropharynx for easier removal BUT note that ASPIRATION RISK WILL INCREASE. * 6. Muscarinic receptor blockers (anti-cholinergic drugs) are most often used: glycopyrrolate (Robinul), scopolamine (Transderm Scop), hyoscyamine and atropine. Of these, I prefer to using glycopyrrolate as first line treatment, because it is a quaternary amine (therefore does not cross the blood-brain barrier) which reduces the potential anti cholinergic agent associated DRAINAGE DESIGN COORDINATOR toxicity (sedation, delirium). * 7. Glycopyrrolate has five times the anti-secretory potency compared to atropine, while scopolamine dries/thickens secretions and causes dry mouth, which may be more distressing to the patient and detract from comfort. Time Involved in Meeting: I spent 40 minutes overall in direct Advance Care Planning/Goals of Care discussions as detailed above in note.
[2024-06-29 16:22] LABS: Codeine Urine NEGATIVE ng/mL (<50); Fentanyl, Urine 6.3 ng/mL (<0.5); Hydrocodone Urine NEGATIVE ng/mL (<50); Hydromor Urine 64 ng/mL (<50); Morphine Urine NEGATIVE ng/mL (<50); Norfentanyl, Urine 4.6 ng/mL (<0.5); Norhydrocodone Conf Ur NEGATIVE ng/mL (<50); Noroxycodone Urine 1330 ng/mL (<50); Oxycodone Urine 906 ng/mL (<50); Oxymorph Urine 1430 ng/mL (<50); medMATCH Fentanyl, Urine DNR; medMATCH Norfentanyl, Urine DNR
[2024-06-29 16:24] VITALS: PULSE 72; RESP 16
[2024-06-29] MEDS ORDERED: BUDESONIDE 0.5 MG/2 ML VIAL (PULMICORT) NEB SCH (19:00)
[2024-06-30] MEDS ORDERED: ISOSORBIDE MONO EXTENDED REL 60 MG TABCR PO SCH (09:00)
== END 2024-06-29 17:30 | disposition hospice, home (50) | DRG 280 ==
LOC: ED 06:23 → 1E 09:03
PROC: CLB.CCO (2024-06-28 14:00)

== ENCOUNTER 2024-07-09 03:23 | Inpatient (IN) ==
[2024-07-09] MEDS ORDERED: ALBUT/IPRATROP 3MG/0.5MG NEB 3 ML VIAL ONE (03:29)
[2024-07-09 04:08] LABS: Basophils # (auto) 0.09 K/uL (0.00-0.20); Basophils % (auto) 0.6 %; Eosinophils # (auto) 0.05 K/uL (0.00-0.50); Eosinophils % (auto) 0.4 %; Hematocrit (blood only) 42.4 % (37.0-47.0); Hemoglobin 13.9 g/dl (12.0-16.0); Immature Granulocytes # (auto) 0.14 K/uL (0.01-0.20); Lymphocytes # (auto) 1.56 K/uL (1.20-3.40); Lymphocytes % (auto) 11.1 %; Mean Corpuscular Hemoglobin 30.4 pg (25.0-34.0); Mean Corpuscular Hgb Conc 32.8 g/dL (32.0-36.0); Mean Corpuscular Volume 92.8 fL (80.0-100.0); Mean Platelet Volume 10.7 fL (9.4-12.4); Monocytes # (auto) 1.04 K/uL (0.11-0.59); Monocytes % (auto) 7.4 %; Neutrophils # (auto) 11.23 K/uL (1.40-6.50); Neutrophils % (auto) 79.5 %; Platelet Count 440 K/uL (130-400); RDW Coefficient of Variation 15.7 % (11.5-14.5); RDW Standard Deviation 53.2 fL (36.4-46.3); Red Blood Count 4.57 M/uL (4.20-5.40); White Blood Count 14.11 K/ul (4.8-10.8)
--- NOTE | 2024-07-09 04:14 | Emergency Department Note ---
Impression & Plan Respiratory failure, Acute kidney injury, Acute hyponatremia admit to the [facility] ED Provider Note NAME: SEAN GOLDMAN AGE: 64 SEX: Female INFORMANT: Patient's son ED PROVIDER(S): Nidia Calderon DO CHIEF COMPLAINT: increasing shortness of breath and weakness PLAN: Disposition: admit to the [facility] MEDICAL DECISION MAKING: this is a 64-year-old female patient with a history of end-stage cardiac disease for which she is on hospice who presents to the emergency department with increasing shortness of breath and generalized weakness. Patient describes episodes of chest discomfort throughout the day today for which she was taking nitroglycerin. Patient became suddenly increasingly short of breath. Family administered 2 doses of morphine for comfort but symptoms progressively got worse. They increased her supplemental oxygen but she continued with severe dyspnea. She was brought to the emergency department for evaluation. laboratory studies revealed a mild leukocytosis with a white count of 14.1. H&H were stable. Sodium has decreased to 129. Creatinine is increased to 1.25. Patient is hyperglycemic with a blood sugar of 352. Patient's troponin is elevated at 60. However, the patient has had multiple previous episodes of elevated troponin. ABG was obtained because of the patient's respiratory failure requiring BiPAP. pH was 7.31. pCO2 is 56. pO2 was 105. Bicarb was 28.8. this is consistent with a respiratory acidosis most likely partially compensated. patient is hyponatremic state could certainly explain her significant weakness and difficulty with walking. Chest x-ray actually appears to be improved from her previous admission to the hospital. There was no evidence of significant flash pulmonary edema. However, the patient requires BiPAP to maintain O2 saturations and for comfort. Care/management discussed with: fleet dispatch manager and [facility]. Triage Nursing notes: reviewed and agree With them. Vital Signs: reviewed and remarkable for Tachycardia Additional History obtained from: patient's and son Chronic Medical/Social Conditions affecting care: COPD, throat cancer, brain cancer, end-stage heart disease with a decreased ejection fraction Differential Diagnosis: CHF, COPD exacerbation, PE, pneumonia Diagnostics, independently interpreted by me: ECG: sinus tachycardia at a rate of [address] segment depression anteriorly and laterally. Cardiac Monitoring: Sinus tachycardia at a rate of 123. Imaging studies: portable chest x-ray: Left-sided opacity which appears to be unchanged from previous x-rays. HPI: 64 year old Female arrives for evaluation of Shortness of breath and chest discomfort. patient has a history of throat cancer and brain cancer and is currently on hospice for end-stage heart disease. Family explains that she had increasing generalized weakness today and difficulty with walking. Tonight, the patient had a sudden onset of shortness of breath and describes having episodes of chest discomfort throughout the day for which she was taking nitroglycerin.. PAST MEDICAL HISTORY: See Below, PAST SURGICAL HISTORY: See Below, SOCIAL HISTORY: See Below, HOME MEDICATIONS: See list ALLERGIES: see list VITALS: See Below PHYSICAL EXAMINATION: HEENT: Head - normocephalic and atraumatic. Pupils are equal, round, and reactive to light. Extraocular eye muscles are intact, and sclera are anicteric. Nose - moist nasal mucosa without discharge. Mouth - moist buccal mucosa. Oropharynx is nonerythematous and there is no tonsillar exudate or edema noted. Neck: Supple; no JVD, Or nuchal rigidity. Heart: Regular rate and rhythm. There is a normal S1 and S2 with no murmurs, clicks, or gallops appreciated. Lungs: Diminished breath sounds in all lung dorantes. Abdomen: Soft, completely nontender, nondistended, with good bowel sounds. There are no palpable pulsatile masses or hepatosplenomegaly. There is no guarding, rigidity, or rebound noted. Extremities: 1-2+ pitting edema. Skin: warm and dry with good turgor and no rashes. Emergency department course: The patient was evaluated in room B-3. A complete history and physical was performed. Previous electronic medical records were reviewed. Laboratory studies were drawn as above. An order was placed for continuous cardiac monitoring. The patient was in a sinus tachycardia at a rate of 123. The patient was feeling more comfortable on BiPAP. Portable chest x-ray was obtained as described above. ABG was obtained. I reviewed the radiographic findings and laboratory findings with the patient and her family. I believe she will require admission to the hospital because her breathing is much more comfortable on BiPAP. I discussed the case with the [facility] Hospitalist. Past Med/Surg History Problem List Acute hyponatremia (Acute) Acute kidney injury (Acute) Respiratory failure (Acute) Cardiomyopathy Acute HFrEF (heart failure with reduced ejection fraction) Acute on chronic respiratory failure with hypoxia and hypercapnia Metabolic encephalopathy Hypertensive emergency Acute on chronic heart failure with preserved ejection fraction (HFpEF) (Acute) Paroxysmal atrial fibrillation Aortic stenosis mild to moderate on 05/2023 echo (DAVIS 1.0 cm2, mean PG 15 mmHg) Diabetes mellitus, type 2 Flash pulmonary edema (Acute) Acute decompensated heart failure (Acute) Thrush, oral CAD (coronary artery disease) Tobacco dependence Acute on chronic diastolic (congestive) heart failure COPD with acute exacerbation (Acute) Coronary artery disease s/p 5 stents, last in 2018 Hypoxia Elevated brain natriuretic peptide (BNP) level (Acute) Non-ST elevation NM (NSTEMI) (Acute) Acute hypoxemic respiratory failure (Acute) Acute dyspnea (Acute) Bilateral leg edema (Acute) Lower extremity pain Unwitnessed fall (Acute) Aspiration pneumonia (Acute) Elevated troponin (Acute) Cancer related pain (Acute) Psychosocial problem Brain metastasis (Chronic) Hemoptysis Encounter for pain management Small cell carcinoma of lung (Acute) Anemia (Acute) Diabetes Unusual change in behavior 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 details Chest pain (Acute) Abscess of upper gum Acute bronchitis Cough Allergic rhinitis Dyspnea on exertion Routine health maintenance Trochanteric bursitis of both hips Stress bladder incontinence, female Smoker Insomnia (Chronic) HTN (hypertension), benign (Chronic) Left hip pain (Acute) Anxiety (Acute) Asthma (Chronic) Lyme disease (Chronic) Fibromyalgia (Chronic) Chronic radicular lumbar pain (Chronic) Hypothyroid (Chronic) COPD (chronic obstructive pulmonary disease) (Chronic) CVD (cardiovascular disease) (Chronic) Medical History Refusal of blood transfusions as patient is Anabaptist Lung cancer metastatic to brain Chronic respiratory failure Takotsubo cardiomyopathy history of Takotsubo cardiomyopathy per [place] [facility] Aneurysmal dilatation AAA, 3.4 cm History of COVID-19 07/2023 Lumbar disc herniation Peripheral neuropathy bilateral legs Hx of deep venous thrombosis years ago Anxiety Onychomycosis Hypotension still occurring occasionally Hypertensive urgency History of TIA (transient ischemic attack) 2018, no deficits History of myocardial infarction x 5 Surgical History History of cardiac cath x 5 stents,between 2014- 2017, done in [place] History of cholecystectomy History of section History of coronary artery stent placement Family History Mother Myocardial infarction Daughter Myocardial infarction Denies family history of Ovarian cancer Prostate cancer Breast cancer Colorectal cancer Social History Smoking Status: Current every day smoker Tobacco Type: Cigarettes Age Started Using Tobacco: 15; packs per day: 1; Cigarettes Per Day: half a pack; Second Hand Exposure: No; Do You Dip or Chew Tobacco: No; Hx Alcohol Use: No Hx Substance Use: No Preferred Language: Mauritanian Communication Ability: Effective Visual Impairment: No Limitations Straight Cutter Machine Required: No Beliefs That Will Affect Care: Restoration Restoration Beliefs: Anabaptist: Refusal of Blood Transfusion marital status: Current Living Situation: Spouse and Family Current Living Situation Comment: lives at home with . current occupational status: disabled How many Children do You have: 6 How many Children do You have Comment: 11 children, 6 biologic - 2 , son murdered in 2022 Feels Safe at Home: Yes Childhood Exposure to Second-Hand Smoke: Yes Diet: diabetic and regular caffeine: Yes (Coffee) Dental Care, Regularly: No Physical Activity Frequency: Daily Physical Activity Frequency Comment: Daily housework/activites Seatbelt Use: always Sunscreen Use: No Assistive Devices: Hospital Bed Allergies Allergies Allergy/AdvReac Type Severity Reaction Status Date / Time latex Allergy Intermediate skin Verified 05/15/24 10:08 itching Influenza Virus Vaccines AdvReac Severe developed Verified 05/15/24 10:08 blood clots vaccine adjuvant system, AdvReac Severe blood clots Verified 05/15/24 10:08 AS01B liposomal [From Shingrix (PF)] varicella-zoster virus AdvReac Severe blood clots Verified 05/15/24 10:08 glycoprotein E, recombinant [From Shingrix (PF)] zolpidem [From Ambien] AdvReac Severe Hallucinati Verified 05/15/24 10:08 ng Home Meds Home Medications Medication Instructions Recorded Confirmed levocetirizine 5 mg tablet (Xyzal) 5 mg PO DAILY PRN allergies 05/26/23 06/27/24 olanzapine 2.5 mg tablet 2.5 mg PO UD PRN Nausea And 11/04/23 06/27/24 Vomiting prochlorperazine maleate 10 mg 10 mg PO DIRECTED PRN 12/28/23 06/27/24 tablet NAUSEA/VOMITING formoterol fumarate 20 mcg/2 mL 0 mcg inhalation BIDR 06/27/24 06/27/24 solution for nebulization (Perforomist) pantoprazole 40 mg tablet,delayed 0 mg PO QAM 06/27/24 06/27/24 release umeclidinium 62.5 mcg/actuation 0 inh inhalation DAILY 06/27/24 06/27/24 blister powder for inhalation (Incruse Ellipta) Previous Rx's Medication Instructions Recorded Wheeled Walker #1 ea 06/16/23 blood-glucose meter (OneTouch #1 ea 10/28/23 Ultra2 Meter) lancets 33 gauge (OneTouch Delica #100 ea 10/28/23 Plus Lancet) Hospital Bed Homecare #1 ea 11/04/23 WHEEL MOBILITY SCOOTER #1 ea 11/08/23 Wheelchair (Manual) #1 ea 11/08/23 transport chair #1 ea 11/10/23 Magic Mouthwash 300 mL mouthwash 10 ml mucous membrane ACHS PRN 11/22/23 dysphagia #300 mL blood sugar diagnostic (OneTouch #100 ea 12/27/23 Ultra Test strips) metoprolol succinate 50 mg 50 mg PO DAILY #30 tabs 12/30/23 tablet,extended release 24 hr ranolazine 500 mg tablet,extended 500 mg PO BID #60 tabs 12/30/23 release,12 hr albuterol sulfate 90 mcg/actuation 2 puff inhalation QID PRN 02/11/24 aerosol inhaler shortness of breath or wheezing #6.7 grams promethazine 6.25 mg-codeine 10 5 ml PO Q8H PRN cough #473 mL 02/11/24 mg/5 mL syrup budesonide 0.5 mg/2 mL suspension 0.5 mg (2 mL) NEB BID #60 doses 02/24/24 for nebulization Emotional Support Animal #1 ea 03/31/24 apixaban 5 mg tablet (Eliquis) 5 mg PO BID #60 tabs 04/19/24 ondansetron HCl 4 mg tablet 4 mg PO QID PRN nausea and 06/05/24 vomiting #120 tabs pregabalin 150 mg capsule (Lyrica) 150 mg PO TID #90 caps 06/15/24 lorazepam 1 mg tablet 1 mg PO TID PRN anxiety, cancer 06/21/24 #90 tabs fentanyl 50 mcg/hr transdermal 50 mcg transdermal Q72H #5 ea 06/26/24 patch aspirin 81 mg tablet,delayed 81 mg PO QAM #30 tabs 06/29/24 release atorvastatin 40 mg tablet 40 mg PO QAM #30 tabs 06/29/24 bumetanide 1 mg tablet 1 mg PO BID #60 tabs 06/29/24 isosorbide mononitrate 60 mg 60 mg PO QAM #30 tabs 06/29/24 tablet,extended release 24 hr morphine concentrate 100 mg/5 mL 5 - 10 mg (0.25 - 0.5 mL) PO Q4H 06/29/24 (20 mg/mL) oral solution PRN pain or shortness of breath #30 mL sacubitril 24 mg-valsartan 26 mg 1 tab PO BID #60 tabs 06/29/24 tablet (Entresto) spironolactone 25 mg tablet 25 mg PO QAM #30 tabs 06/29/24 nitroglycerin 0.4 mg sublingual 0.4 mg sublingual Q5M PRN chest 06/30/24 tablet pain #30 tabs Results & Data (ED) Vital Signs Vital Signs - 24 hr 07/09/24 03:15 07/09/24 03:31 07/09/24 03:32 Temperature 36.9 C Temperature Source Oral Pulse Rate 142 H Pulse Rate from SpO2 Sensor Pulse Rhythm Regular Pulse Strength Normal Respiratory Rate 25 H 22 Respiratory Effort / Characteristics Spontaneous Labored Short of Breath SOB on Exertion Spontaneous Short of Breath Respiratory Depth Shallow Normal Respiratory Pattern Rapid/Shallow Regular Blood Pressure 164/99 H Blood Pressure Mean 120 Pulse Oximetry 95 95 93 Oxygen Delivery Method BiPAP BiPAP Fraction of Inspired Oxygen 35 35 SaO2/FiO2 Ratio 265 Sepsis Recent Fever Within 48 Hours No Sepsis New/Unexplained Change in Mental Status No Sepsis Action Taken by Nursing Physician Notified 07/09/24 03:47 07/09/24 03:55 07/09/24 04:05 Temperature Temperature Source Pulse Rate 125 H 123 H Pulse Rate from SpO2 Sensor Pulse Rhythm Regular Pulse Strength Respiratory Rate 24 Respiratory Effort / Characteristics Labored Respiratory Depth Respiratory Pattern Regular Blood Pressure Blood Pressure Mean Pulse Oximetry Oxygen Delivery Method BiPAP BiPAP Fraction of Inspired Oxygen 35 35 SaO2/FiO2 Ratio Sepsis Recent Fever Within 48 Hours Sepsis New/Unexplained Change in Mental Status Sepsis Action Taken by Nursing 07/09/24 04:30 07/09/24 05:30 07/09/24 06:00 Temperature Temperature Source Pulse Rate 116 H 108 H 108 H Pulse Rate from SpO2 Sensor 117 H Pulse Rhythm Pulse Strength Respiratory Rate 21 22 20 Respiratory Effort / Characteristics Respiratory Depth Respiratory Pattern Blood Pressure 119/89 134/94 136/100 Blood Pressure Mean 94 102 113 Pulse Oximetry 96 98 99 Oxygen Delivery Method Fraction of Inspired Oxygen SaO2/FiO2 Ratio Sepsis Recent Fever Within 48 Hours Sepsis New/Unexplained Change in Mental Status Sepsis Action Taken by Nursing 07/09/24 06:30 Temperature Temperature Source Pulse Rate 105 H Pulse Rate from SpO2 Sensor 105 H Pulse Rhythm Pulse Strength Respiratory Rate 17 Respiratory Effort / Characteristics Respiratory Depth Respiratory Pattern Blood Pressure 138/109 H Blood Pressure Mean 118 Pulse Oximetry 97 Oxygen Delivery Method Fraction of Inspired Oxygen SaO2/FiO2 Ratio Sepsis Recent Fever Within 48 Hours Sepsis New/Unexplained Change in Mental Status Sepsis Action Taken by Nursing Laboratory Data 07/09/24 03:34 07/09/24 03:34 Lab Results 07/09/24 07/09/24 07/09/24 Range/Units 03:34 04:55 05:01 WBC 14.11 H (4.8-10.8) K/ul RBC 4.57 (4.20-5.40) M/uL Hgb 13.9 (12.0-16.0) g/dl POC Hgb (12.0-16.0) g/dl Hct 42.4 (37.0-47.0) % POC Hct (37-47) % MCV 92.8 (80.0-100.0) fL MCH 30.4 (25.0-34.0) pg MCHC 32.8 (32.0-36.0) g/dL RDW Std Deviation 53.2 H (36.4-46.3) fL RDW Coeff of Chanel 15.7 H (11.5-14.5) % Plt Count 440 H (130-400) K/uL MPV 10.7 (9.4-12.4) fL Immature Gran % (Auto) 1.0 % Neut % (Auto) 79.5 % Lymph % (Auto) 11.1 % Daggett % (Auto) 7.4 % Eos % (Auto) 0.4 % Baso % (Auto) 0.6 % Neut # (Auto) 11.23 H (1.40-6.50) K/uL Lymph # (Auto) 1.56 (1.20-3.40) K/uL Daggett # (Auto) 1.04 H (0.11-0.59) K/uL Eos # (Auto) 0.05 (0.00-0.50) K/uL Baso # (Auto) 0.09 (0.00-0.20) K/uL Immature Gran # (Auto) 0.14 (0.01-0.20) K/uL Specimen Type POC pH (7.35-7.45) POC pCO2 (35-46) mmHg POC pO2 (80-95) mmHg POC HCO3 (19-24) damon/L POC Total CO2 (24-31) mmol/L POC Base Excess (-9-1.8) damon/L POC ABG O2 Sat (90-95) % POC Sodium (135-144) mmol/L Sodium 129 L (136-145) mmol/L POC Potassium (3.3-5.0) mmol/L Potassium 3.9 (3.5-5.1) mmol/L Chloride 90 L (98-107) mmol/L Carbon Dioxide 27 (21-32) mmol/L Anion Gap 12 H (3-11) BUN 14 (6-23) mg/dl Creatinine 1.25 H (0.6-1.2) mg/dl Est Cr Clr Drug Dosing 50.9 ml/min eGFR 47.83 BUN/Creatinine Ratio 11.2 (10-20) Glucose 352 H* (70-99(Fasting)) mg/dl Calcium 10.6 H (8.6-10.3) mg/dl Total Bilirubin 0.8 (0.2-1.0) mg/dl AST 14 (13-39) U/L ALT 11 (7-52) U/L Alkaline Phosphatase 74 (34-104) U/L Troponin I High Sens 60.6 H* 138.4 H* D (0-14) pg/ml B-Natriuretic Peptide 1106 H (0-100) pg/ml Total Protein 7.6 (6.0-8.3) gm/dl Albumin 4.2 (3.4-5.0) gm/dl Globulin 3.4 (2.5-4.0) gm/dl Albumin/Globulin Ratio 1.2 (0.9-2) 07/09/24 Range/Units 05:36 WBC (4.8-10.8) K/ul RBC (4.20-5.40) M/uL Hgb (12.0-16.0) g/dl POC Hgb 12.9 (12.0-16.0) g/dl Hct (37.0-47.0) % POC Hct 38 (37-47) % MCV (80.0-100.0) fL MCH (25.0-34.0) pg MCHC (32.0-36.0) g/dL RDW Std Deviation (36.4-46.3) fL RDW Coeff of Chanel (11.5-14.5) % Plt Count (130-400) K/uL MPV (9.4-12.4) fL Immature Gran % (Auto) % Neut % (Auto) % Lymph % (Auto) % Daggett % (Auto) % Eos % (Auto) % Baso % (Auto) % Neut # (Auto) (1.40-6.50) K/uL Lymph # (Auto) (1.20-3.40) K/uL Daggett # (Auto) (0.11-0.59) K/uL Eos # (Auto) (0.00-0.50) K/uL Baso # (Auto) (0.00-0.20) K/uL Immature Gran # (Auto) (0.01-0.20) K/uL Specimen Type Arterial POC pH 7.32 L (7.35-7.45) POC pCO2 56 H (35-46) mmHg POC pO2 105 H (80-95) mmHg POC HCO3 29 H (19-24) damon/L POC Total CO2 30 (24-31) mmol/L POC Base Excess 3.0 H (-9-1.8) damon/L POC ABG O2 Sat 97.0 H (90-95) % POC Sodium 130 L (135-144) mmol/L Sodium (136-145) mmol/L POC Potassium 3.5 (3.3-5.0) mmol/L Potassium (3.5-5.1) mmol/L Chloride (98-107) mmol/L Carbon Dioxide (21-32) mmol/L Anion Gap (3-11) BUN (6-23) mg/dl Creatinine (0.6-1.2) mg/dl Est Cr Clr Drug Dosing ml/min eGFR BUN/Creatinine Ratio (10-20) Glucose (70-99(Fasting)) mg/dl Calcium (8.6-10.3) mg/dl Total Bilirubin (0.2-1.0) mg/dl AST (13-39) U/L ALT (7-52) U/L Alkaline Phosphatase (34-104) U/L Troponin I High Sens (0-14) pg/ml B-Natriuretic Peptide (0-100) pg/ml Total Protein (6.0-8.3) gm/dl Albumin (3.4-5.0) gm/dl Globulin (2.5-4.0) gm/dl Albumin/Globulin Ratio (0.9-2) Imaging Data Radiologist's Impression: Chest X-Ray 07/09/24 03:49 EXAM: XR chest 1V portable CLINICAL HISTORY: dyspnea [facility]ST POSSIBLE TECHNIQUE: An X-ray image of the chest is obtained in AP projection. COMPARISON: 06/27/2024 FINDINGS: Pulmonary Parenchyma: Prominent coarse broncho vascular markings are noted at perihilar and basal regions. Unchanged. Left middle lung zone airspace opacity is noted with ill-defined margins, associated with a peripheral wedge shape opacity with well-defined margins likely atelectasis, unchanged with respect to the prior study. The costophrenic and cardiophrenic angles are clear. Heart and Mediastinum: The cardiac size appears increased. Unchanged. No mediastinal widening or masses. No hilar or mediastinal lymphadenopathy. Elevated left hemidiaphragm. Bony Thorax: Bony thorax appears intact without fractures or deformities. Soft Tissues: Soft tissues overlying the chest wall are unremarkable. IMPRESSION: 1. Left middle lung zone airspace opacity and peripheral wedge shape opacity. Possibilities of a pneumonic process with possible underlying neoplastic lesion and distal collapse cannot be ruled out, Further evaluation by CT is advised. 2. Prominent broncho vascular markings. 3. Elevated left hemidiaphragm 4. No interval changes. [facility]'s ER was called at [phone] at 4:21 AM EMU FARMER, 07/09/2024, and Nurse Mendy was informed regarding the presence of Important Medical Findings on this report. Electronically signed by Liliya Zazueta 07-09-2024 05:23 AM Discharge Plan Visit Data Chief Complaint: Shortness of Breath/Dyspnea Stated Complaint: SOB, Chest Pain ED Provider: Nidia Caldeorn Discharge Problem: Respiratory failure, Acute kidney injury, Acute hyponatremia Forms Stand Alone Forms: My [facility] Prescriptions Prescriptions: No Action (DME) Wheeled Walker Misc See Rx Instructions .Route Qty: 1 0RF Rx Instructions: w/ a seat and hand brakes (DME) Hospital Bed Homecare Misc See Rx Instructions .Route Qty: 1 0RF Rx Instructions: As directed (DME) Wheelchair (Manual) Device See Rx Instructions .Route Qty: 1 0RF Rx Instructions: As directed (DME) WHEEL MOBILITY SCOOTER See Rx Instructions .Route .MEDSUPPLY Qty: 1 0RF Rx Instructions: As directed (DME) transport chair See Rx Instructions .Route .MEDSUPPLY Qty: 1 0RF Rx Instructions: As directed Magic Mouthwash 300 mL mouthwash 10 ml mucous membrane ACHS PRN (Reason: dysphagia) Qty: 300 3RF (DME) OneTouch Ultra Test Strip See Rx Instructions .Route Qty: 100 0RF Rx Instructions: As directed budesonide 0.5 mg/2 mL suspension for nebulization 0.5 mg NEB BID Qty: 60 6RF Eliquis 5 mg tablet 5 mg PO BID Qty: 60 3RF Rx Instructions: start 10/26/23 in the evening ondansetron HCl 4 mg tablet 4 mg PO QID PRN (Reason: nausea and vomiting) Qty: 120 5RF pregabalin [Lyrica] 150 mg capsule 150 mg PO TID Qty: 90 2RF lorazepam 1 mg tablet 1 mg PO TID PRN (Reason: anxiety, cancer) Qty: 90 5RF fentanyl 50 mcg/hr patch 72 hour 50 mcg transdermal Q72H Qty: 5 0RF nitroglycerin 0.4 mg tablet, sublingual 0.4 mg sublingual Q5M PRN (Reason: chest pain) Qty: 30 4RF Rx Instructions: do not exceed 3 doses per episode. call 911 if ongoing chest pain. (DME) blood-glucose meter [iMICROQuch Ultra2 Meter] Misc See Rx Instructions .Route Qty: 1 0RF Rx Instructions: As directed (DME) lancets [[email or web address] Delica Plus Lancet] 33 gauge misc See Rx Instructions .Route Qty: 100 0RF Rx Instructions: As directed albuterol sulfate 90 mcg/actuation HFA aerosol inhaler 2 puff inhalation QID PRN (Reason: shortness of breath or wheezing) Qty: 6.7 3RF promethazine-codeine 6.25-10 mg/5 mL syrup 5 ml PO Q8H PRN (Reason: cough) Qty: 473 0RF (DME) Emotional Support Animal See Rx Instructions .Route .MEDSUPPLY Qty: 1 0RF Rx Instructions: Patient needs this for Anxiety and overall health levocetirizine [Xyzal] 5 mg tablet 5 mg PO DAILY PRN (Reason: allergies) Rx Instructions: Unable to verify OTC meds at this date/time pantoprazole 40 mg tablet,delayed release (DR/EC) 0 mg PO QAM Rx Instructions: Unable to verify med with patient/family/pharmacy at this date/time. Not on file w/ pharmacy. Original Directions: 40mg by mouth daily formoterol fumarate [Perforomist] 20 mcg/2 mL solution for nebulization 0 mcg inhalation BIDR Rx Instructions: Unable to verify med with patient/family/pharmacy at this date/time. Not on file w/ pharmacy. Original Directions: 20mcg BID Incruse Ellipta 62.5 mcg/actuation blister with device 0 inh inhalation DAILY Rx Instructions: Unable to verify med with patient/family/pharmacy at this date/time. Not on file w/ pharmacy. Original Directions: 1 inh daily atorvastatin 40 mg Tablet 40 mg PO QAM Qty: 30 0RF isosorbide mononitrate 60 mg Tablet Extended Release 24 Hr 60 mg PO QAM Qty: 30 0RF spironolactone 25 mg Tablet 25 mg PO QAM Qty: 30 0RF Entresto 24-26 mg Tablet 1 tab PO BID Qty: 60 0RF aspirin 81 mg Tablet,Delayed Release (Dr/Ec) 81 mg PO QAM Qty: 30 0RF morphine concentrate 100 mg/5 mL (20 mg/mL) solution 5 - 10 mg PO Q4H PRN (Reason: pain or shortness of breath) Qty: 30 0RF bumetanide 1 mg tablet 1 mg PO BID Qty: 60 0RF olanzapine 2.5 mg tablet 2.5 mg PO UD PRN (Reason: Nausea And Vomiting) prochlorperazine maleate 10 mg tablet 10 mg PO DIRECTED PRN (Reason: NAUSEA/VOMITING) ranolazine 500 mg Tablet Extended Release 12 Hr 500 mg PO BID Qty: 60 4RF metoprolol succinate 50 mg tablet extended release 24 hr 50 mg PO DAILY Qty: 30 4RF Referrals Referrals: Katarina Andre MD [Primary Care Provider] -
[2024-07-09 04:28] LABS: Albumin Globulin Ratio 1.2 (0.9-2); Albumin Level 4.2 gm/dl (3.4-5.0); BUN Creatinine Ratio 11.2 (10-20); Bilirubin,Total 0.8 mg/dl (0.2-1.0); Calcium 10.6 mg/dl (8.6-10.3); Creatinine Clr Calc Pharmacy 50.9 ml/min; Globulin 3.4 gm/dl (2.5-4.0); Potassium 3.9 mmol/L (3.5-5.1); Total Protein 7.6 gm/dl (6.0-8.3)
[2024-07-09 04:29] LABS: Troponin I High Sensitivity 60.6 pg/ml (0-14)
--- NOTE | 2024-07-09 05:24 | XRay Report ---
EXAM: XR chest 1V portable CLINICAL HISTORY: dyspnea KFK BEST POSSIBLE TECHNIQUE: An X-ray image of the chest is obtained in AP projection. COMPARISON: 06/27/2024 FINDINGS: Pulmonary Parenchyma: Prominent coarse broncho vascular markings are noted at perihilar and basal regions. Unchanged. Left middle lung zone airspace opacity is noted with ill-defined margins, associated with a peripheral wedge shape opacity with well-defined margins likely atelectasis, unchanged with respect to the prior study. The costophrenic and cardiophrenic angles are clear. Heart and Mediastinum: The cardiac size appears increased. Unchanged. No mediastinal widening or masses. No hilar or mediastinal lymphadenopathy. Elevated left hemidiaphragm. Bony Thorax: Bony thorax appears intact without fractures or deformities. Soft Tissues: Soft tissues overlying the chest wall are unremarkable. IMPRESSION: 1. Left middle lung zone airspace opacity and peripheral wedge shape opacity. Possibilities of a pneumonic process with possible underlying neoplastic lesion and distal collapse cannot be ruled out, Further evaluation by CT is advised. 2. Prominent broncho vascular markings. 3. Elevated left hemidiaphragm 4. No interval changes. [facility]'s ER was called at [phone] at 4:21 AM TOOL SHAPER SET UP OPERATOR, 07/09/2024, and Nurse Mendy was informed regarding the presence of Important Medical Findings on this report. Electronically signed by Liliya Zazueta 07-09-2024 05:23 AM
[2024-07-09 05:50] LABS: iSTAT Arterial Blood Gas HCO3 29 meg/L (19-24); iSTAT Arterial Blood Gas pCO2 56 mmHg (35-46); iSTAT Arterial Blood Gas pH 7.32 (7.35-7.45); iSTAT Arterial Blood Gas pO2 105 mmHg (80-95); iSTAT Carbon Dioxide 30 mmol/L (24-31); iSTAT Hematocrit 38 % (37-47); iSTAT Hemoglobin 12.9 g/dl (12.0-16.0); iSTAT Potassium 3.5 mmol/L (3.3-5.0); iSTAT Sample Type Arterial; iSTAT Sodium 130 mmol/L (135-144)
[2024-07-09 05:57] LABS: Troponin I High Sensitivity 138.4 pg/ml (0-14)
--- NOTE | 2024-07-09 06:23 | History & Physical Report ---
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 Patient reports URI symptoms ongoing for the last several days with chest congestion and cough, generalized weakness. Patient with respiratory distress upon arrival requiring BiPAP. Differential diagnosis to include acute exacerbation of CHF - patient with similar presentation during most recent hospital admission. Possible URI contributing, possible COPD exacerbation, possible PNA -Admit to PCU -Continue supplemental O2 with goal saturation 92% -BiPAP PRN -Will give additional dose of Bumex 1mg IV now and resume home dose of 1mg po BID -DuoNeb q 4 hours -Albuterol HFA PRN -Continue home Budesonide, Performist, Garett Rey (2) Acute HFrEF (heart failure with reduced ejection fraction): Plan: Patient with recent NSTEMI, Echo performed on 06/27/24 with EF of 30-35% with severe hypokinesis to akinesis of the inferior and inferolateral irizarry as well as moderate to severe aortic stenosis -Bumex 1mg IV x 1 dose now then resume Bumex 1mg po BID -Monitor UOP -Monitor I/Os -Continue Entresto 1tab po BID -Continue Spironolactone -Continue Metoprolol (3) Acute hyponatremia: Plan: [id number], likely secondary to volume overload. Patient with baseline hyponat remia - Na 132-137 over the last month -Bumex diuresis -Monitor Na levels (4) Paroxysmal atrial fibrillation: Plan: Patient with paroxysmal atrial fibrillation. Elevated heart rate presently in setting of respiratory illness -Continue Apixaban 5mg po BID -Continue Metoprolol 50mg po daily (5) Diabetes mellitus, type 2: Plan: Elevated blood [id number]=147. Overall well controlled - last HgbA1C on 05/08/24=5.5 -ISS (6) Coronary artery disease: Plan: Patient with severe multivessel CAD with left main disease. She is not a good candidate for CABG due to complicating comorbidities at this time. 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 Patient was recently admitted to [facility] from 06/27 - 06/29/24 with acute shortness of breath that woke her from sleep. She was managed with BiPAP and diuretics at that time. Found to have an NSTEMI. Echo with severely reduced EF of 30-35%, significant wall motion abnormalities in the inferior and inferolateral irizarry and moderate to sever . Cardiac catheterization was performed and patient found to have severe multivessel disease including the left main. She was ultimately discharged home with Hospice Services and GDMT for her CAD and new HFrEF. Patient reports having URI symptoms for the last several days including cough and chest congestion and generalized weakness. She also reports an episode of vomiting yesterday AM and several episodes of non-bloody diarrhea. Her family has been ill as well with similar symptoms. Yesterday she had intermittent episodes of chest pain throughout the day and took several doses of morphine for her discomfort. Around 02:00 she woke with acute SOB. She turned up her O2 but did not receive any relief. She received DuoNeb x 2 by EMS and was placed on CPAP prior to arrival. In the ER patient afebrile, tachycardic, tachypneic. She was transitioned to BiPAP. During my encounter she reports that she feels slightly improved with use of the BiPAP. No additional complaints at this time - presently CP free ER Course: BiPAP Allergies Allergy/AdvReac Type Severity Reaction Status Date / Time latex Allergy Intermediate skin Verified 05/15/24 10:08 itching Influenza Virus Vaccines AdvReac Severe developed Verified 05/15/24 10:08 blood clots vaccine adjuvant system, AdvReac Severe blood clots Verified 05/15/24 10:08 AS01B liposomal [From Shingrix (PF)] varicella-zoster virus AdvReac Severe blood clots Verified 05/15/24 10:08 glycoprotein E, recombinant [From Shingrix (PF)] zolpidem [From Ambien] AdvReac Severe Hallucinati Verified 05/15/24 10:08 ng Home Medications Medication Instructions Recorded Confirmed Type levocetirizine 5 mg tablet (Xyzal) 5 mg PO DAILY PRN allergies 05/26/23 06/27/24 History Wheeled Walker #1 ea 06/16/23 05/15/24 Rx blood-glucose meter (OneTouch #1 ea 10/28/23 05/15/24 Rx Ultra2 Meter) lancets 33 gauge (OneTouch Delica #100 ea 10/28/23 05/15/24 Rx Plus Lancet) Hospital Bed Homecare #1 ea 11/04/23 05/15/24 Rx olanzapine 2.5 mg tablet 2.5 mg PO UD PRN Nausea And 11/04/23 06/27/24 History Vomiting WHEEL MOBILITY SCOOTER #1 ea 11/08/23 05/15/24 Rx Wheelchair (Manual) #1 ea 11/08/23 05/15/24 Rx transport chair #1 ea 11/10/23 05/15/24 Rx Magic Mouthwash 300 mL mouthwash 10 ml mucous membrane ACHS PRN 11/22/23 06/27/24 Rx dysphagia #300 mL blood sugar diagnostic (OneTouch #100 ea 12/27/23 05/15/24 Rx Ultra Test strips) prochlorperazine maleate 10 mg 10 mg PO DIRECTED PRN 12/28/23 06/27/24 History tablet NAUSEA/VOMITING metoprolol succinate 50 mg 50 mg PO DAILY #30 tabs 12/30/23 06/27/24 Rx tablet,extended release 24 hr ranolazine 500 mg tablet,extended 500 mg PO BID #60 tabs 12/30/23 06/27/24 Rx release,12 hr albuterol sulfate 90 mcg/actuation 2 puff inhalation QID PRN 02/11/24 06/27/24 Rx aerosol inhaler shortness of breath or wheezing #6.7 grams promethazine 6.25 mg-codeine 10 5 ml PO Q8H PRN cough #473 mL 02/11/24 06/27/24 Rx mg/5 mL syrup budesonide 0.5 mg/2 mL suspension 0.5 mg (2 mL) NEB BID #60 doses 02/24/24 06/27/24 Rx for nebulization Emotional Support Animal #1 ea 03/31/24 05/15/24 Rx apixaban 5 mg tablet (Eliquis) 5 mg PO BID #60 tabs 04/19/24 06/27/24 Rx ondansetron HCl 4 mg tablet 4 mg PO QID PRN nausea and 06/05/24 06/27/24 Rx vomiting #120 tabs pregabalin 150 mg capsule (Lyrica) 150 mg PO TID #90 caps 06/15/24 06/27/24 Rx lorazepam 1 mg tablet 1 mg PO TID PRN anxiety, cancer 06/21/24 06/27/24 Rx #90 tabs fentanyl 50 mcg/hr transdermal 50 mcg transdermal Q72H #5 ea 06/26/24 06/27/24 Rx patch formoterol fumarate 20 mcg/2 mL 0 mcg inhalation BIDR 06/27/24 06/27/24 History solution for nebulization (Perforomist) pantoprazole 40 mg tablet,delayed 0 mg PO QAM 06/27/24 06/27/24 History release umeclidinium 62.5 mcg/actuation 0 inh inhalation DAILY 06/27/24 06/27/24 History blister powder for inhalation (Incruse Ellipta) aspirin 81 mg tablet,delayed 81 mg PO QAM #30 tabs 06/29/24 Rx release atorvastatin 40 mg tablet 40 mg PO QAM #30 tabs 06/29/24 Rx bumetanide 1 mg tablet 1 mg PO BID #60 tabs 06/29/24 Rx isosorbide mononitrate 60 mg 60 mg PO QAM #30 tabs 06/29/24 Rx tablet,extended release 24 hr morphine concentrate 100 mg/5 mL 5 - 10 mg (0.25 - 0.5 mL) PO Q4H 06/29/24 Rx (20 mg/mL) oral solution PRN pain or shortness of breath #30 mL sacubitril 24 mg-valsartan 26 mg 1 tab PO BID #60 tabs 06/29/24 Rx tablet (Entresto) spironolactone 25 mg tablet 25 mg PO QAM #30 tabs 06/29/24 Rx nitroglycerin 0.4 mg sublingual 0.4 mg sublingual Q5M PRN chest 06/30/24 Rx tablet pain #30 tabs Past Med/Surg History Problem List Acute hyponatremia (Acute) Acute kidney injury (Acute) Respiratory failure (Acute) Cardiomyopathy Acute HFrEF (heart failure with reduced ejection fraction) Acute on chronic respiratory failure with hypoxia and hypercapnia Metabolic encephalopathy Hypertensive emergency Acute on chronic heart failure with preserved ejection fraction (HFpEF) (Acute) Paroxysmal atrial fibrillation Aortic stenosis mild to moderate on 05/2023 echo (DAVIS 1.0 cm2, mean PG 15 mmHg) Diabetes mellitus, type 2 Flash pulmonary edema (Acute) Acute decompensated heart failure (Acute) Thrush, oral CAD (coronary artery disease) Tobacco dependence Acute on chronic diastolic (congestive) heart failure COPD with acute exacerbation (Acute) Coronary artery disease s/p 5 stents, last in 2018 Hypoxia Elevated brain natriuretic peptide (BNP) level (Acute) Non-ST elevation SD (NSTEMI) (Acute) Acute hypoxemic respiratory failure (Acute) Acute dyspnea (Acute) Bilateral leg edema (Acute) Lower extremity pain Unwitnessed fall (Acute) Aspiration pneumonia (Acute) Elevated troponin (Acute) Cancer related pain (Acute) Psychosocial problem Brain metastasis (Chronic) Hemoptysis Encounter for pain management Small cell carcinoma of lung (Acute) Anemia (Acute) Diabetes Unusual change in behavior 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 details Chest pain (Acute) Abscess of upper gum Acute bronchitis Cough Allergic rhinitis Dyspnea on exertion Routine health maintenance Trochanteric bursitis of both hips Stress bladder incontinence, female Smoker Insomnia (Chronic) HTN (hypertension), benign (Chronic) Left hip pain (Acute) Anxiety (Acute) Asthma (Chronic) Lyme disease (Chronic) Fibromyalgia (Chronic) Chronic radicular lumbar pain (Chronic) Hypothyroid (Chronic) COPD (chronic obstructive pulmonary disease) (Chronic) CVD (cardiovascular disease) (Chronic) Medical History Refusal of blood transfusions as patient is Orthodox Lung cancer metastatic to brain Chronic respiratory failure Takotsubo cardiomyopathy history of Takotsubo cardiomyopathy per [place] cardio Aneurysmal dilatation AAA, 3.4 cm History of COVID-19 07/2023 Lumbar disc herniation Peripheral neuropathy bilateral legs Hx of deep venous thrombosis years ago Anxiety Onychomycosis Hypotension still occurring occasionally Hypertensive urgency History of TIA (transient ischemic attack) 2018, no deficits History of myocardial infarction x 5 Surgical History History of cardiac cath x 5 stents,between 2014- 2017, done in [place] History of cholecystectomy History of section History of coronary artery stent placement Family History Mother Myocardial infarction Daughter Myocardial infarction Denies family history of Ovarian cancer Prostate cancer Breast cancer Colorectal cancer Social History Smoking Status: Current every day smoker Tobacco Type: Cigarettes Age Started Using Tobacco: 15; packs per day: 1; Cigarettes Per Day: half a pack; Second Hand Exposure: No; Do You Dip or Chew Tobacco: No; Hx Alcohol Use: No Hx Substance Use: No Preferred Language: Greenlandic Communication Ability: Effective Visual Impairment: No Limitations Ticket Marker Required: No Beliefs That Will Affect Care: L[employer]-Day L[employer]-Day Beliefs: Orthodox: Refusal of Blood Transfusion marital status: Current Living Situation: Spouse and Family Current Living Situation Comment: lives at home with . current occupational status: disabled How many Children do You have: 6 How many Children do You have Comment: 11 children, 6 biologic - 2 , son murdered in 2022 Feels Safe at Home: Yes Childhood Exposure to Second-Hand Smoke: Yes Diet: diabetic and regular caffeine: Yes (Coffee) Dental Care, Regularly: No Physical Activity Frequency: Daily Physical Activity Frequency Comment: Daily housework/activites Seatbelt Use: always Sunscreen Use: No Assistive Devices: Hospital Bed Review of Systems Review of Systems: All systems reviewed & are unremarkable except as noted in HPI & below Physical Exam Physical Exam: General: patient chronically ill in appearance, BiPAP in place, NAD Skin: warm, dry, intact, no rashes or lesions HEENT: NC/AT, PERRL, EOMI, anicteric sclera, conjunctiva without injection, external ear normal to inspection and nontender, nares patent, moist mucus membranes, dentition intact, no oropharyngeal lesions, neck supple, trachea midline, no LAD, no thyromegaly, no JVD Heart: +S1/S2, irregularly irregular, tachycardic, 3/6 ORALIA at right 2nd ICS with radiation to carotids and across precordium Lungs: patient with tachypnea, crackles present in left mid-lung with diffuse wheezing Abd: +BS, soft, NT/ND, no masses/organomegaly/ascites Ext: warm, 2+ pulses in UE/LE bilaterally, no clubbing/cyanosis, trace bilateral LE edema Neuro: nonfocal, patient AA&O x 4, speech intact, no facial droop, moving all extremities on command with equal strength 5/5 Results & Data Results & Data Vital Signs (Past 12 Hours) Vital Signs Temp Pulse Resp BP Pulse Ox O2 Del Method FiO2 07/09/24 05:30 108 H 22 134/94 98 07/09/24 04:30 116 H 21 119/89 96 07/09/24 04:05 123 H 24 BiPAP 35 07/09/24 03:55 125 H 07/09/24 03:47 BiPAP 35 07/09/24 03:32 36.9 C 142 H 22 164/99 H 93 BiPAP 35 07/09/24 03:31 95 BiPAP 07/09/24 03:15 25 H 95 35 Laboratory Results Laboratory Results WBC 14.11 K/ul (4.8-10.8) H 07/09/24 03:34 RBC 4.57 M/uL (4.20-5.40) 07/09/24 03:34 Hgb 13.9 g/dl (12.0-16.0) 07/09/24 03:34 POC Hgb 12.9 g/dl (12.0-16.0) 07/09/24 05:36 Hct 42.4 % (37.0-47.0) 07/09/24 03:34 POC Hct 38 % (37-47) 07/09/24 05:36 MCV 92.8 fL (80.0-100.0) 07/09/24 03:34 MCH 30.4 pg (25.0-34.0) 07/09/24 03:34 MCHC 32.8 g/dL (32.0-36.0) 07/09/24 03:34 RDW Std Deviation 53.2 fL (36.4-46.3) H 07/09/24 03:34 RDW Coeff of Chanel 15.7 % (11.5-14.5) H 07/09/24 03:34 Plt Count 440 K/uL (130-400) H 07/09/24 03:34 MPV 10.7 fL (9.4-12.4) 07/09/24 03:34 Immature Gran % (Auto) 1.0 % 07/09/24 03:34 Neut % (Auto) 79.5 % 07/09/24 03:34 Lymph % (Auto) 11.1 % 07/09/24 03:34 Buchanan % (Auto) 7.4 % 07/09/24 03:34 Eos % (Auto) 0.4 % 07/09/24 03:34 Baso % (Auto) 0.6 % 07/09/24 03:34 Neut # (Auto) 11.23 K/uL (1.40-6.50) H 07/09/24 03:34 Lymph # (Auto) 1.56 K/uL (1.20-3.40) 07/09/24 03:34 Buchanan # (Auto) 1.04 K/uL (0.11-0.59) H 07/09/24 03:34 Eos # (Auto) 0.05 K/uL (0.00-0.50) 07/09/24 03:34 Baso # (Auto) 0.09 K/uL (0.00-0.20) 07/09/24 03:34 Immature Gran # (Auto) 0.14 K/uL (0.01-0.20) 07/09/24 03:34 Specimen Type Arterial 07/09/24 05:36 POC pH 7.32 (7.35-7.45) L 07/09/24 05:36 POC pCO2 56 mmHg (35-46) H 07/09/24 05:36 POC pO2 105 mmHg (80-95) H 07/09/24 05:36 POC HCO3 29 damon/L (19-24) H 07/09/24 05:36 POC Total CO2 30 mmol/L (24-31) 07/09/24 05:36 POC Base Excess 3.0 damon/L (-9-1.8) H 07/09/24 05:36 POC ABG O2 Sat 97.0 % (90-95) H 07/09/24 05:36 POC Sodium 130 mmol/L (135-144) L 07/09/24 05:36 Sodium 129 mmol/L (136-145) L 07/09/24 03:34 POC Potassium 3.5 mmol/L (3.3-5.0) 07/09/24 05:36 Potassium 3.9 mmol/L (3.5-5.1) 07/09/24 03:34 Chloride 90 mmol/L (98-107) L 07/09/24 03:34 Carbon Dioxide 27 mmol/L (21-32) 07/09/24 03:34 Anion Gap 12 (3-11) H 07/09/24 03:34 BUN 14 mg/dl (6-23) 07/09/24 03:34 Creatinine 1.25 mg/dl (0.6-1.2) H 07/09/24 03:34 Est Cr Clr Drug Dosing 50.9 ml/min 07/09/24 03:34 eGFR 47.83 07/09/24 03:34 BUN/Creatinine Ratio 11.2 (10-20) 07/09/24 03:34 Glucose 352 mg/dl (70-99(Fasting)) H* 07/09/24 03:34 Calcium 10.6 mg/dl (8.6-10.3) H 07/09/24 03:34 Total Bilirubin 0.8 mg/dl (0.2-1.0) 07/09/24 03:34 AST 14 U/L (13-39) 07/09/24 03:34 ALT 11 U/L (7-52) 07/09/24 03:34 Alkaline Phosphatase 74 U/L (34-104) 07/09/24 03:34 Troponin I High Sens 138.4 pg/ml (0-14) H* D 07/09/24 05:01 B-Natriuretic Peptide 1106 pg/ml (0-100) H 07/09/24 04:55 Total Protein 7.6 gm/dl (6.0-8.3) 07/09/24 03:34 Albumin 4.2 gm/dl (3.4-5.0) 07/09/24 03:34 Globulin 3.4 gm/dl (2.5-4.0) 07/09/24 03:34 Albumin/Globulin Ratio 1.2 (0.9-2) 07/09/24 03:34 Impressions Chest X-Ray 07/09/24 03:49 EXAM: XR chest 1V portable CLINICAL HISTORY: dyspnea KFK BEST POSSIBLE TECHNIQUE: An X-ray image of the chest is obtained in AP projection. COMPARISON: 06/27/2024 FINDINGS: Pulmonary Parenchyma: Prominent coarse broncho vascular markings are noted at perihilar and basal regions. Unchanged. Left middle lung zone airspace opacity is noted with ill-defined margins, associated with a peripheral wedge shape opacity with well-defined margins likely atelectasis, unchanged with respect to the prior study. The costophrenic and cardiophrenic angles are clear. Heart and Mediastinum: The cardiac size appears increased. Unchanged. No mediastinal widening or masses. No hilar or mediastinal lymphadenopathy. Elevated left hemidiaphragm. Bony Thorax: Bony thorax appears intact without fractures or deformities. Soft Tissues: Soft tissues overlying the chest wall are unremarkable. IMPRESSION: 1. Left middle lung zone airspace opacity and peripheral wedge shape opacity. Possibilities of a pneumonic process with possible underlying neoplastic lesion and distal collapse cannot be ruled out, Further evaluation by CT is advised. 2. Prominent broncho vascular markings. 3. Elevated left hemidiaphragm 4. No interval changes. [facility]'s ER was called at [phone] at 4:21 AM JEWELRY MOLD MAKER, 07/09/2024, and Nurse Mendy was informed regarding the presence of Important Medical Findings on this report. Electronically signed by Liliya Zazueta 07-09-2024 05:23 AM ECG Additional Comments: EKG with ST at 146bpm, KH=248, BEI=515, WJ=713 Code Status & VTE Plan VTE Prophylaxis Plan VTE Prophylaxis will be ordered: Yes PG Care Time/CCT Total # of Minutes Spent Total Time Spent with Patient: Total time spent is greater than 50% in coordination of care (as documented) at patient's floor/unit and/or counseling patient: Coding Level of Care Code 55955 INT INP/OBS CARE 3/75MIN Diagnoses Acute on chronic respiratory failure with hypoxia and hypercapnia J96.21; J96.22 Acute HFrEF (heart failure with reduced ejection fraction) I50.21 Acute hyponatremia E87.1 Paroxysmal atrial fibrillation I48.0 Diabetes mellitus, type 2 E11.9 Coronary artery disease of ely shoshone artery of ely shoshone heart with stable angina pectoris I25.118 Coronary Disease-Associated Artery/Lesion type: ely sh[place]one artery [place] vs. transplanted heart: ely shoshone heart Associated angina: with stable angina (6) Coronary artery disease Coronary Disease-Associated Artery/Lesion type: ely [place]one artery [place] vs. transplanted heart: ely shoshone heart Associated angina: with stable angina Qualif ied Code(s): I25.118 - Atherosclerotic heart disease of ely shoshone coronary artery with other forms of angina pectoris
[2024-07-09] MEDS: MoRPHine SULFATE 4 MG/ML 1 ML CARP\\VIAL ONE (07:09)
--- NOTE | 2024-07-09 07:57 | CT Scan Report ---
EXAM: CT chest diagnostic wo con CLINICAL HISTORY: h/o cancer, SOB TECHNIQUE: Contiguous axial CT images of the chest were acquired without administration of intravenous contrast. Coronal and sagittal reconstructions were obtained. One of the following dose reduction techniques were utilized for this exam: Automated exposure control, adjustment of the mA and/or kV according to patient size, use of iterative reconstruction. COMPARISON: X ray on the same day and CT angio dated 06/27/2024. FINDINGS: Lungs: Patchy area of consolidation with airbronchogram noted parahilar in the left upper, lower lung lobes and in the medial lingula. Smooth interlobular septal thickening noted at both lungs more pronounced at both lower lung lobes, middle irene and lingula with associated faint small patches of ground glass opacities. Mild bilateral upper lobar centrilobular emphysema. Mild bilateral pleural effusion. No pulmonary nodules or masses are identified.. Mediastinum: The mediastinum is normal in size and contour. The heart size is enlarged with enlarged left ventricle. Prominent mediastinal lymphnodes with the largest seen retrocaval measures 9mm in short axis. Hilar Structures: The hilar structures appear normal without enlargement or abnormality. Trachea and Main Bronchi: The trachea and main bronchi are patent without evidence of obstruction or abnormality. Chest Wall: The chest wall is unremarkable with no evidence of soft tissue or bony abnormalities. Upper Abdomen: Visualized portions of the liver, spleen, adrenal glands, and kidneys are unremarkable. Bones: Spine degenerative changes, no evidence of fracture or lytic/sclerotic lesions. IMPRESSION: 1. The heart size is enlarged with an enlarged left ventricle. 2. Patchy area of consolidation with airbronchogram noted parahilar in the left upper, and lower lung lobes and in the medial lingula. 3. Smooth interlobular septal thickening was noted at both lungs more pronounced at both lower lung lobes, middle lobe, and lingula with associated faint small patches of ground glass opacities. 4. Mild bilateral pleural effusion. 5. Findings suggestive of pulmonary edema, clinical correlation is advised. 6. No interval changes compared to prior studies. [facility]'s ER was called at [phone], at 6:50 AM LOOPER FIXER, 07/09/[address] Roberts was informed about the presence of significant medical findings. Electronically signed by Liliya Zazueta 07-09-2024 07:57 AM
[2024-07-09 08:04] LABS: Adenovirus PCR Not Detected (NotDetected); Bordetella parapertussis PCR Not Detected (NotDetected); Bordetella pertussis PCR Not Detected (NotDetected); Chlamydia pneumoniae PCR Not Detected (NotDetected); Coronavirus 229E PCR Not Detected (NotDetected); Coronavirus CoV-2 (COVID19)PCR Not Detected (NotDetected); Coronavirus HKU1 PCR Not Detected (NotDetected); Coronavirus NL63 PCR Not Detected (NotDetected); Coronavirus OC43PCR Not Detected (NotDetected); Human Metapneumovirus PCR Not Detected (NotDetected); Influenza A PCR Not Detected (NotDetected); Influenza B PCR Not Detected (NotDetected); Mycoplasma pneumoniae PCR Not Detected (NotDetected); Parainfluenza Virus 1 PCR Not Detected (NotDetected); Parainfluenza Virus 2 PCR Not Detected (NotDetected); Parainfluenza Virus 3 PCR Not Detected (NotDetected); Parainfluenza Virus 4 PCR Not Detected (NotDetected); Respiratory Syncytial VirusPCR Not Detected (NotDetected); Rhinovirus/Enterovirus PCR Not Detected (NotDetected)
[2024-07-09] MEDS ORDERED: ALBUTEROL HFA 8 GM INHALER INH PRN (09:23)
[2024-07-09] MEDS ORDERED: DEXTROSE 50% 50 ML SYRINGE IV PRN (09:23)
[2024-07-09] MEDS ORDERED: GLUCOSE 40% GEL 15 GM TUBE PO PRN (09:23)
[2024-07-09] MEDS ORDERED: NITROGLYCERIN SL 0.4 MG/TAB TAB SL PRN (09:23)
[2024-07-09] MEDS ORDERED: GLUCOSE 10 TAB/TUBE PO PRN (09:23)
[2024-07-09] MEDS ORDERED: GLUCAGON FOR INJ 1 MG VIAL SQ PRN (09:23)
[2024-07-09] MEDS ORDERED: CARBOHYDRATES FOR HYPOGLYCEMIA PO PRN (09:23)
[2024-07-09] MEDS ORDERED: FIRST - Mouthwash BLM 5 ML UDP PO PRN (09:40)
[2024-07-09] MEDS ORDERED: BUMETANIDE 1 MG in SYRINGE 0 ML IV ONE (09:45)
[2024-07-09] MEDS ORDERED: methylPREDNISolone 10 mg/mL (For Ped Dose < 7mg) IV SCH (10:15)
[2024-07-09] MEDS: BUDESONIDE 0.5 MG/2 ML VIAL (PULMICORT) NEB SCH (10:38)
[2024-07-09] MEDS: FORMOTEROL 20 MCG/2 ML VIAL INH SCH (10:38)
[2024-07-09] MEDS: guaiFENesin 600 MG TABCR PO SCH (10:43)
[2024-07-09] MEDS: PANTOprazole 40 MG TAB PO SCH (10:43)
[2024-07-09] MEDS: METOPROLOL SUCC 50MG EXT REL TAB PO SCH (10:43)
[2024-07-09] MEDS: APIXABAN 5 MG TABLET PO SCH (10:43)
[2024-07-09] MEDS: ISOSORBIDE MONO EXTENDED REL 60 MG TABCR PO SCH (10:44)
[2024-07-09] MEDS: RANOLAZINE 500 MG ER TAB PO SCH (10:44)
[2024-07-09] MEDS: ATORVASTATIN 40 MG TAB PO SCH (10:44)
[2024-07-09] MEDS: SPIRONOLACTONE 25 MG TAB PO SCH (10:44)
[2024-07-09] MEDS: ASPIRIN 81 MG ECTAB PO SCH (10:45)
[2024-07-09] MEDS: BUMETANIDE 2 MG in SYRINGE 0 ML IV ONE (10:45)
[2024-07-09 10:49] LABS: Magnesium 1.5 mg/dl (1.7-2.4)
[2024-07-09] MEDS: MoRPHine SULFATE 4 MG/ML 1 ML CARP\\VIAL IV PRN (11:06)
[2024-07-09] MEDS: VALSARTAN/SACUBITRIL 26/24MG TAB PO SCH (11:06)
[2024-07-09] MEDS: INSULIN ASPART PER UNIT CHARGE SC SCH (11:17)
[2024-07-09] MEDS: ONDANSETRON INJ 2 MG/ML 2 ML VIAL IV PRN (11:27)
[2024-07-09] MEDS: PREGABALIN 150 MG CAP PO SCH (11:28)
[2024-07-09] MEDS: ACETAMINOPHEN 325 MG TAB PO PRN (11:28)
[2024-07-09] MEDS: PIPERACILLIN/TAZOBACTAM 4.5 GM/100 ML BAG IV ONE (12:00)
--- NOTE | 2024-07-09 12:15 | Electrocardiogram Report ---
Test Reason : Blood Pressure : */* mmHG Vent. Rate : 146 BPM Atrial Rate : 146 BPM P-R Int : 100 ms QRS Dur : 116 ms QT Int : 326 ms P-R-T Axes : 71 58 100 degrees QTcB Int : 508 ms Sinus tachycardia with short FL Left ventricular hypertrophy with QRS widening and repolarization abnormality Cannot rule out Septal infarct , age undetermined Abnormal ECG When compared with ECG of 27-Jun-2024 17:57, Significant changes have occurred Confirmed by Juan Luis Arrieta ([id number]) on 07/09/2024 12:14:51 PM Referred By: REFERRED SELF Confirmed By: Juan Luis Arrieta
[2024-07-09] MEDS: MoRPHine SULFATE 2 MG/ML CARP IV PRN (13:39)
[2024-07-09] MEDS: methylPREDNISolone 40 MG in SYRINGE 0 ML IV SCH (14:30)
[2024-07-09] MEDS: SODIUM CHLORIDE 0.9% 250 ML IV ONE ×2 (16:02→21:41)
[2024-07-09] MEDS: BUMETANIDE 1 MG TAB PO SCH (16:04)
[2024-07-09] MEDS ORDERED: BUMETANIDE 1 MG in SYRINGE 0 ML IV SCH (17:00)
[2024-07-09] MEDS: oxyCODONE HCL IR 5 MG TAB (IMMEDIATE RELEASE) PO PRN (19:27)
[2024-07-09] MEDS: PIPERACILLIN/TAZOBACTAM 4.5 GM/100 ML BAG IV SCH (19:49)
[2024-07-09] MEDS: UMECLIDINIUM BROMIDE 62.5MCG/BLISTER 7 PUFFS/INHALER INH SCH (19:50)
[2024-07-10 06:52] LABS: Hematocrit (blood only) 35.2 % (37.0-47.0); Hemoglobin 11.4 g/dl (12.0-16.0); Mean Corpuscular Hemoglobin 30.1 pg (25.0-34.0); Mean Corpuscular Hgb Conc 32.4 g/dL (32.0-36.0); Mean Corpuscular Volume 92.9 fL (80.0-100.0); Mean Platelet Volume 10.4 fL (9.4-12.4); Platelet Count 256 K/uL (130-400); RDW Coefficient of Variation 16.2 % (11.5-14.5); RDW Standard Deviation 55.4 fL (36.4-46.3); Red Blood Count 3.79 M/uL (4.20-5.40); White Blood Count 6.49 K/ul (4.8-10.8)
[2024-07-10 07:08] LABS: BUN Creatinine Ratio 14.5 (10-20); Creatinine Clr Calc Pharmacy 48.6 ml/min; Potassium 4.5 mmol/L (3.5-5.1)
[2024-07-10 07:26] VITALS: RESP 19; TEMP 97.7; O2SAT 96
[2024-07-10 07:30] LABS: Basophils # (auto) 0.01 K/uL (0.00-0.20); Basophils % (auto) 0.2 %; Immature Granulocytes # (auto) 0.05 K/uL (0.01-0.20); Immature Granulocytes % (auto) 0.8 %; Lymphocytes # (auto) 0.32 K/uL (1.20-3.40); Lymphocytes % (auto) 4.9 %; Monocytes # (auto) 0.19 K/uL (0.11-0.59); Monocytes % (auto) 2.9 %; Neutrophils # (auto) 5.92 K/uL (1.40-6.50); Neutrophils % (auto) 91.2 %
[2024-07-10] MEDS ORDERED: LORazepam 1 MG TAB PO PRN (07:32)
[2024-07-10] MEDS: fentaNYL 50 MCG/HR TDSY TD SCH (08:02)
[2024-07-10] MEDS: CHECK fentaNYL PATCH PLACEMENT SCH (08:03)
--- NOTE | 2024-07-10 12:20 | Discharge Summary ---
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 Patient reports chest congestion and cough, generalized weakness. Patient with respiratory distress upon arrival requiring BiPAP. Chest CT on arrival consistent possibly with pneumonia Differential diagnosis to include acute exacerbation of CHF, with possible pneumonia on top of COPD and lung cancer She also ran out of lorazepam at home for 3 days and there may have been a significant anxiety or benzodiazepine withdrawal component to her shortness of breath She was admitted to PCU and weaned off BiPAP back to nasal cannula 2 to 3 L She was initially given IV Bumex but then had severe hypotension with blood pressures down to the 60s systolic and was given IV fluids with improvement in her blood pressure Once blood pressures were improved, she was mentating normally and was very anxious to be discharged back to home and reenrolled back in hospice She can continue on her usual p.o. Bumex and heart failure medications to prevent pulmonary edema Finish out a course of oral antibiotics for possible pneumonia Patient would like minimal interventions at this point and will go home with hospice (2) Acute HFrEF (heart failure with reduced ejection fraction): Patient with recent NSTEMI, Echo performed on 06/27/24 with EF of 30-35% with severe hypokinesis to akinesis of the inferior and inferolateral irizarry as well as moderate to severe aortic stenosis She had a cardiac catheterization which showed severe disease including left main-she is not a candidate for CABG due to her metastatic lung cancer as well as desire to not have surgery With treatment as above resulting hypotension which is now resolved Resume home Bumex, Entresto, spironolactone, metoprolol on discharge (3) Acute hyponatremia: Dkmisp=270, likely secondary to volume overload. Patient with baseline hyponatremia - Na 132-137 over the last month Sodium levels improved after diuresis on the day of discharge (4) Paroxysmal atrial fibrillation: Patient with paroxysmal atrial fibrillation. Here with sinus rhythm Continue Apixaban 5mg po BID Continue Metoprolol 50mg po daily (5) Diabetes mellitus, type 2: She does not desire to have insulin or Accu-Cheks Her home metformin was discontinued last admission as she is now on hospice (6) Coronary artery disease: Patient with severe multivessel CAD with left main disease. She is not a good candidate for CABG due to complicating comorbidities at this time. Her troponin did trend back up again to 2735 here which is likely secondary to demand ischemia in the setting of hypotension and hypoxemia but she did not have chest pain Continue ASA, Atorvastatin, Metoprolol Continue Isosorbide and Ranolazine Entresto and Spironolactone for CHF Plan Chronic pain-continue fentanyl patch and oxycodone as needed. 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 Patient was recently admitted to [facility] from 06/27 - 06/29/24 with acute shortness of breath that woke her from sleep. She was managed with BiPAP and diuretics at that time. Found to have an NSTEMI. Echo with severely reduced EF of 30-35%, significant wall motion abnormalities in the inferior and inferolateral irizarry and moderate to sever . Cardiac catheterization was performed and patient found to have severe multivessel disease including the left main. She was ultimately discharged home with Hospice Services and GDMT for her CAD and new HFrEF. Patient reports having URI symptoms for the last several days including cough and chest congestion and generalized weakness. She also reports an episode of vomiting yesterday AM and several episodes of non-bloody diarrhea. Her family has been ill as well with similar symptoms. Yesterday she had intermittent episodes of chest pain throughout the day and took several doses of morphine for her discomfort. Around 02:00 she woke with acute SOB. She turned up her O2 but did not receive any relief. She received DuoNeb x 2 by EMS and was placed on CPAP prior to arrival. In the ER patient afebrile, tachycardic, tachypneic. She was transitioned to BiPAP. During my encounter she reports that she feels slightly improved with use of the BiPAP. No additional complaints at this time - presently CP free ER Course: BiPAP Discharge Exam Constitutional WD/WN, vitals as above Respiratory normal respiratory effort Auscultation: + diminished lung sounds (Throughout); no rales, no rhonchi and no wheezes Cardiovascular RRR, no murmur, no edema Gastrointestinal (Abdomen) normal bowel sounds, soft, nontender, no hepatosplenomegaly Psychiatric Orientation: alert and oriented x 3 Affect: + irritable affect Discharge Plan Discharge Items Patient Disposition: Hospice - Home Reason For Visit: SHORTNESS OF BREATH Discharge Diagnosis: Heart failure Pneumonia Respiratory failure Hypotension Condition on Discharge: Fair Activity: Resume your previous activity Non-emergency contact: Primary Care Provider Call non-emergency contact if: you have any medication questions and your symptoms worsen Follow-up/Referrals: Katarina Adnre MD [Primary Care Provider] - 07/13/24 10:30 am (Hospital follow up scheduled July 13 at 10:30) Diet: Regular Addtl Attending Provider Instructions: You were admitted for shortness of breath, heart failure, pneumonia, and low blood pressure. This improved and you will go home with hospice again with pain medication in the form of Fentanyl patch and oxycodone as needed for breakthrough pain. We will STOP the liquid morphine for now as this seems to make your blood pressure low. You should continue taking all the heart and blood pressure medications as they will help keep fluid out of your lungs from the heart failure. Please finish out 6 more days of the antibiotic for your pneumonia. Pending Studies at Discharge: No Stand-Alone Forms: [facility] Medications and DC Order Prescriptions: New oxycodone 5 mg Tablet 10 mg PO Q6H PRN (Reason: pain or breathlessness) Qty: 30 0RF amoxicillin-pot clavulanate 875-125 mg tablet 1 tab PO BID Qty: 12 0RF Continued (DME) Wheeled Walker Misc See Rx Instructions .Route Qty: 1 0RF Rx Instructions: w/ a seat and hand brakes (DME) Hospital Bed Homecare Misc See Rx Instructions .Route Qty: 1 0RF Rx Instructions: As directed (DME) Wheelchair (Manual) Device See Rx Instructions .Route Qty: 1 0RF Rx Instructions: As directed (DME) WHEEL MOBILITY SCOOTER See Rx Instructions .Route .MEDSUPPLY Qty: 1 0RF Rx Instructions: As directed (DME) transport chair See Rx Instructions .Route .MEDSUPPLY Qty: 1 0RF Rx Instructions: As directed Magic Mouthwash 300 mL mouthwash 10 ml mucous membrane ACHS PRN (Reason: dysphagia) Qty: 300 3RF (DME) OneTouch Ultra Test Strip See Rx Instructions .Route Qty: 100 0RF Rx Instructions: As directed budesonide 0.5 mg/2 mL suspension for nebulization 0.5 mg NEB BID Qty: 60 6RF Eliquis 5 mg tablet 5 mg PO BID Qty: 60 3RF Rx Instructions: start 10/26/23 in the evening ondansetron HCl 4 mg tablet 4 mg PO QID PRN (Reason: nausea and vomiting) Qty: 120 5RF pregabalin [Lyrica] 150 mg capsule 150 mg PO TID Qty: 90 2RF nitroglycerin 0.4 mg tablet, sublingual 0.4 mg sublingual Q5M PRN (Reason: chest pain) Qty: 30 4RF Rx Instructions: do not exceed 3 doses per episode. call 911 if ongoing chest pain. (DME) blood-glucose meter [OneTouch Ultra2 Meter] Misc See Rx Instructions .Route Qty: 1 0RF Rx Instructions: As directed ([facility] [place]) lancets [OneTouch Delica Plus Lancet] 33 gauge misc See Rx Instructions .Route Qty: 100 0RF Rx Instructions: As directed albuterol sulfate 90 mcg/actuation HFA aerosol inhaler 2 puff inhalation QID PRN (Reason: shortness of breath or wheezing) Qty: 6.7 3RF (DME) Emotional Support Animal See Rx Instructions .Route .MEDSUPPLY Qty: 1 0RF Rx Instructions: Patient needs this for Anxiety and overall health levocetirizine [Xyzal] 5 mg tablet 5 mg PO DAILY PRN (Reason: allergies) Rx Instructions: Unable to verify OTC meds at this date/time pantoprazole 40 mg tablet,delayed release (DR/EC) 0 mg PO QAM Rx Instructions: Unable to verify med with patient/family/pharmacy at this date/time. Not on file w/ pharmacy. Original Directions: 40mg by mouth daily formoterol fumarate [Perforomist] 20 mcg/2 mL solution for nebulization 0 mcg inhalation BIDR Rx Instructions: Unable to verify med with patient/family/pharmacy at this date/time. Not on file w/ pharmacy. Original Directions: 20mcg BID Incruse Ellipta 62.5 mcg/actuation blister with device 0 inh inhalation DAILY Rx Instructions: Unable to verify med with patient/family/pharmacy at this date/time. Not on file w/ pharmacy. Original Directions: 1 inh daily atorvastatin 40 mg Tablet 40 mg PO QAM Qty: 30 0RF isosorbide mononitrate 60 mg Tablet Extended Release 24 Hr 60 mg PO QAM Qty: 30 0RF spironolactone 25 mg Tablet 25 mg PO QAM Qty: 30 0RF Entresto 24-26 mg Tablet 1 tab PO BID Qty: 60 0RF aspirin 81 mg Tablet,Delayed Release (Dr/Ec) 81 mg PO QAM Qty: 30 0RF bumetanide 1 mg tablet 1 mg PO BID Qty: 60 0RF fentanyl 50 mcg/hr patch 72 hour 50 mcg transdermal Q72H Qty: 5 0RF lorazepam 1 mg tablet 1 mg PO TID PRN (Reason: anxiety, cancer) Qty: 90 0RF olanzapine 2.5 mg tablet 2.5 mg PO UD PRN (Reason: Nausea And Vomiting) prochlorperazine maleate 10 mg tablet 10 mg PO DIRECTED PRN (Reason: NAUSEA/VOMITING) ranolazine 500 mg Tablet Extended Release 12 Hr 500 mg PO BID Qty: 60 4RF metoprolol succinate 50 mg tablet extended release 24 hr 50 mg PO DAILY Qty: 30 4RF Discontinued promethazine-codeine 6.25-10 mg/5 mL syrup 5 ml PO Q8H PRN (Reason: cough) Qty: 473 0RF morphine concentrate 100 mg/5 mL (20 mg/mL) solution 5 - 10 mg PO Q4H PRN (Reason: pain or shortness of breath) Qty: 30 0RF Discharge Orders: Discharge Order- CHF (Routine); Ordered 07/10/24 Ordered By: Juanita Estrella Admission Data Admit Date/Time: 07/09/24 06:22 Attending Provider: Juanita Estrella Admit Provider: Nasreen Claros Primary Care Provider: Katarina Andre Other Providers: [facility],Hospice; Mele King Other Interventions: Discharge Summary Assessment (RN) Last Done: 07/10/24 12:23 Hospital Stay Data Consultations 07/09/24 05:21 ED Decision to Admit Stat Diagnostic Imagining Performed 07/09/24 06:22 CT chest diagnostic wo con Routine Pending Results Patient Have Any Pending Studies at Discharge: No Discharge Instructions Given to Patient (Per Discharging Provider) You were admitted for shortness of breath, heart failure, pneumonia, and low blood pressure. This improved and you will go home with hospice again with pain medication in the form of Fentanyl patch and oxycodone as needed for breakthrough pain. We will STOP the liquid morphine for now as this seems to make your blood pressure low. You should continue taking all the heart and blood pressure medications as they will help keep fluid out of your lungs from the heart failure. Please finish out 6 more days of the antibiotic for your pneumonia. Total Time Total Time Spent Total Time Spent (In Minutes): 35 minutes Total Time Includes: Examination of the Patient, Discharge Planning and Medicati on Reconciliation Coding Level of Care Code 37418 INP/OBS DISCH >30 MIN Diagnoses Acute on chronic respiratory failure with hypoxia and hypercapnia J96.21; J96.22 Acute HFrEF (heart failure with reduced ejection fraction) I50.21 Acute hyponatremia E87.1 Paroxysmal atrial fibrillation I48.0 Diabetes mellitus, type 2 E11.9 Coronary artery disease of [place] artery of [place] heart with stable angina pectoris I25.118 Associated angina: with stable angina Coronary Disease-Associated Artery/Lesion type: [place] artery [place] vs. transplanted heart: [place] heart
[2024-07-10 12:24] VITALS: BP 102/66; PULSE 72
== END 2024-07-10 13:14 | disposition hospice, home (50) | DRG 189 ==
LOC: SUATTDRO → ED 03:23 → SUATTDRO 06:22 → 2S 06:22
DX: I48.0 Paroxysmal atrial fibrillation; Z88.8 Allergy status to other drugs, medicaments and biological substances; J44.1 Chronic obstructive pulmonary disease with (acute) exacerbation; R57.0 Cardiogenic shock; I95.9 Hypotension, unspecified; E11.9 Type 2 diabetes mellitus without complications; Z99.81 Dependence on supplemental oxygen; J96.21 Acute and chronic respiratory failure with hypoxia; I21.4 Non-ST elevation (NSTEMI) myocardial infarction; I50.23 Acute on chronic systolic (congestive) heart failure; J44.0 Chronic obstructive pulmonary disease with (acute) lower respiratory infection; I35.0 Nonrheumatic aortic (valve) stenosis; J96.22 Acute and chronic respiratory failure with hypercapnia; Z79.82 Long term (current) use of aspirin; C34.32 Malignant neoplasm of lower lobe, left bronchus or lung; C79.31 Secondary malignant neoplasm of brain; Z88.7 Allergy status to serum and vaccine; E87.1 Hypo-osmolality and hyponatremia; Z91.040 Latex allergy status; Z66 Do not resuscitate; Z79.01 Long term (current) use of anticoagulants; I25.10 Atherosclerotic heart disease of native coronary artery without angina pectoris; F17.210 Nicotine dependence, cigarettes, uncomplicated; Z79.899 Other long term (current) drug therapy; J18.9 Pneumonia, unspecified organism

== ENCOUNTER 2024-07-24 09:07 | Observation (INO) ==
[2024-07-24] MEDS: NITROGLYCERIN 2% OINTMENT 30GM TUBE EXT SCH (09:20)
[2024-07-24] MEDS: NITROGLYCERIN 2% OINTMENT 30GM TUBE EXT ONE (09:20)
[2024-07-24] MEDS: ALBUT/IPRATROP 3MG/0.5MG NEB 3 ML VIAL NEB STA (09:21)
[2024-07-24] MEDS: ONDANSETRON INJ 2 MG/ML 2 ML VIAL IV STA (09:31)
[2024-07-24 09:33] LABS: Base Excess VBG 3.4 mEq/L; HCO3 VBG 30 mmol/L; Oxygen Saturation VBG 79.9 %; PCO2 VBG 50 mmHg (38-50); PO2 VBG 51 mmHg; pH VBG 7.38 (7.36-7.41)
[2024-07-24 09:37] LABS: Basophils # (auto) 0.03 K/uL (0.00-0.20); Basophils % (auto) 0.2 %; Eosinophils # (auto) 0.02 K/uL (0.00-0.50); Eosinophils % (auto) 0.2 %; Hematocrit (blood only) 44.9 % (37.0-47.0); Hemoglobin 15.3 g/dl (12.0-16.0); Immature Granulocytes # (auto) 0.12 K/uL (0.01-0.20); Immature Granulocytes % (auto) 0.9 %; Lymphocytes # (auto) 1.19 K/uL (1.20-3.40); Mean Corpuscular Hgb Conc 34.1 g/dL (32.0-36.0); Mean Corpuscular Volume 90.9 fL (80.0-100.0); Mean Platelet Volume 10.5 fL (9.4-12.4); Monocytes # (auto) 0.64 K/uL (0.11-0.59); Monocytes % (auto) 4.8 %; Neutrophils # (auto) 11.26 K/uL (1.40-6.50); Neutrophils % (auto) 84.9 %; Platelet Count 310 K/uL (130-400); RDW Coefficient of Variation 15.2 % (11.5-14.5); RDW Standard Deviation 49.9 fL (36.4-46.3); Red Blood Count 4.94 M/uL (4.20-5.40); White Blood Count 13.26 K/ul (4.8-10.8)
--- NOTE | 2024-07-24 09:52 | XRay Report ---
XR chest 1V portable HISTORY: 64 years-old Female spb acute shortness of breath COMPARISON: Chest CT 07/09/2024 TECHNIQUE: AP view the chest FINDINGS: Cardiac silhouette is enlarged. Emphysema with bilateral mixed interstitial and alveolar opacities re demonstrated, progressed from prior. Small pleural effusions. Bones appear grossly intact. IMPRESSION: 1. Cardiomegaly with progressive mixed interstitial and alveolar disease . 2. Small pleural effusions. ACT 112: Negative or not required by law. The above report was generated using voice recognition software. It may contain grammatical, syntax o r spelling errors. Electronically signed by: Garret Bowles M.D. 07/24/2024 9:50 AM
[2024-07-24 10:04] LABS: Partial Thromboplastin Time 28 Seconds (21-31); Prothrombin Time 10.7 Seconds (9.0-12.0)
[2024-07-24 10:09] LABS: Albumin Globulin Ratio 1.2 (0.9-2); Albumin Level 4.1 gm/dl (3.4-5.0); BUN Creatinine Ratio 21.8 (10-20); Bilirubin,Total 0.7 mg/dl (0.2-1.0); Calcium 10.3 mg/dl (8.6-10.3); Creatinine Clr Calc Pharmacy 54.6 ml/min; Globulin 3.5 gm/dl (2.5-4.0); Magnesium 1.6 mg/dl (1.7-2.4); Potassium 3.6 mmol/L (3.5-5.1); Total Protein 7.6 gm/dl (6.0-8.3); Troponin I High Sensitivity 91.7 pg/ml (0-14)
--- NOTE | 2024-07-24 10:18 | Emergency Department Note ---
Impression & Plan Respiratory distress, Leukocytosis, COPD exacerbation, Tachypnea, Tachycardia, Fluid overload, Elevated troponin, Acute hyperglycemia ED Provider Note NAME: SEAN GOLDMAN AGE: 64 SEX: F : 1960 ARRIVES VIA: Ambulance INFORMANT: [Patient][nursing] ED PROVIDER(S): [Onesimo Guerra MD] CHIEF COMPLAINT: Short of breath HISTORY OF PRESENT ILLNESS: The patient is a 64-year-old female with lung cancer and COPD. She chronically wears 2 to 3 L of oxygen. She was discharged from our hospital 2 weeks ago and at that time, was part of hospice. She presents back today with increasing dyspnea for a few days and today, some swelling of her legs. The patient denies fever, no chest pain. En route to the hospital, she was given 1 DuoNeb, 2 albuterol treatments, 125 of IV Solu-Medrol. PMHx/PSHx/Social Hx: See Below PHYSICAL EXAM: GENERAL: Patient is in moderate respiratory distress. HEENT: No acute trauma, normocephalic atraumatic, mucous membranes moist, no nasal congestion. NECK: No stridor, no adenopathy, no meningismus, trachea is midline. LUNGS: Crackles and wheezes bilaterally, increased respiratory rate, accessory muscle use, moderate respiratory distress noted. Breath sounds diminished bilaterally. HEART: Tachycardic, heart tones quite distant, rhythm seems regular. ABDOMEN: Soft, nontender, no peritonitis. EXTREMITIES: No cyanosis, full range of motion of all the joints without pain or difficulty. Moderate bilateral pedal edema. NEUROLOGIC: Oriented x 3, no acute motor or sensory deficits, no focal weakness. SKIN: No jaundice, no diaphoresis. DIFFERENTIAL DIAGNOSIS: CHF, exacerbation of COPD, pneumonia, anemia, DE, among others. EMERGENCY DEPARTMENT PROCEDURES: MEDICAL DECISION MAKING: There is a mild leukocytosis, this could be consistent with infection or just the stress of her presentation. There was a normal hemoglobin and platelet count. No coagulopathy. VBG did not show significant CO2 retention or acidosis. Sodium was low at 129. Glucose was high at 312. Magnesium was low at 1.6. No concerning liver enzyme elevation. ECG showed a sinus tachycardia, no obvious ST elevation. Cardiac enzyme testing was elevated, this troponin elevation could be secondary to cardiac injury or mismatch from her hypoxia and dyspnea. Chest x-ray shows some chronic change plus some increased fluid overload. BNP was elevated consistent with heart failure. Urinalysis did not show infection. Respiratory bio fire was negative. On exam, the patient appeared in respiratory distress. She was tachypneic and tachycardic. The patient was aggressively managed. She was placed immediately on BiPAP with a 1 hour DuoNeb. She was given IV Bumex to help with diuresis. She received IV Zofran for nausea. She was given IV ceftriaxone as empiric antibiotic coverage. She received IV magnesium. Nitroglycerin paste was ordered. With the above treatment, the patient is making improvement. She no longer appears in respiratory distress, she states that she feels markedly better compared to when she arrived. The patient appears to have dyspnea for multiple reasons. She has lung cancer, she is fluid overloaded, she is suffering from a flare of COPD. Her presentation today is similar to previous presentations. She is in need of a hospital stay. I did speak with the patient and case management, the on-call hospitalist was consulted. Prior/Outside records/notes reviewed: Today's EMS notes describing her presentation and transport to this hospital. ECG per my interpretation: Indication was shortness of breath. The ECG shows what appears to be a sinus tachycardia with a rate of 128. There is LVH present. There is some nonspecific ST change. There are some inverted T waves in the high lateral leads. There is no ST elevation. No PVCs. QTc is 470. Continuous Cardiac Monitoring per my interpretation: An order was placed for continuous cardiac monitoring. The monitor shows a rate of 112 with sinus tachycardia. Imaging/x-ray results per my interpretation: Chest x-ray shows some chronic change and consolidation. There may be some increased pulmonary congestion seen. No pneumothorax. Chronic Medical/Social conditions affecting care: History of lung cancer and COPD. Care/Management discussed with: Case management, the on-call hospitalist. Level of care consideration(s): After review of the information above and other included data: --I believe the patient requires escalation of care to admission Critical Care Note: I have personally spent 46 minutes of critical care time in the direct management of this patient. This includes bedside care, interpretation of diagnostic studies, and testing, discussion with consultants, patient, and family members, and other required patient management activities. This 46 minutes is in excess of all separately billable procedures. DISPOSITION: Admission Past Med/Surg History Problem List Acute hyperglycemia (Acute) Elevated troponin (Acute) Fluid overload (Acute) Tachycardia (Acute) Tachypnea (Acute) COPD exacerbation (Acute) Leukocytosis (Acute) Respiratory distress (Acute) Hypomagnesemia Hyperglycemia due to type 2 diabetes mellitus Leukocytosis Acute on chronic hypoxic respiratory failure Acute hyponatremia (Acute) Acute kidney injury (Acute) Respiratory failure (Acute) Cardiomyopathy Acute HFrEF (heart failure with reduced ejection fraction) Paroxysmal atrial fibrillation Aortic stenosis mild to moderate on 05/2023 echo (DAVIS 1.0 cm2, mean PG 15 mmHg) Diabetes mellitus, type 2 Thrush, oral CAD (coronary artery disease) Tobacco dependence Acute on chronic diastolic (congestive) heart failure Hypoxia Acute hypoxemic respiratory failure (Acute) Acute dyspnea (Acute) Bilateral leg edema (Acute) Lower extremity pain Unwitnessed fall (Acute) Aspiration pneumonia (Acute) Elevated troponin (Acute) Cancer related pain (Acute) Psychosocial problem Brain metastasis (Chronic) Hemoptysis Encounter for pain management Small cell carcinoma of lung (Acute) Anemia (Acute) Diabetes Unusual change in behavior 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 details Chest pain (Acute) Abscess of upper gum Acute bronchitis Cough Allergic rhinitis Dyspnea on exertion Routine health maintenance Trochanteric bursitis of both hips Stress bladder incontinence, female Smoker Insomnia (Chronic) HTN (hypertension), benign (Chronic) Left hip pain (Acute) Anxiety (Acute) Asthma (Chronic) Lyme disease (Chronic) Fibromyalgia (Chronic) Chronic radicular lumbar pain (Chronic) Hypothyroid (Chronic) COPD (chronic obstructive pulmonary disease) (Chronic) CVD (cardiovascular disease) (Chronic) Medical History Acute on chronic respiratory failure with hypoxia and hypercapnia Non-ST elevation DE (NSTEMI) Refusal of blood transfusions as patient is Taoism Lung cancer metastatic to brain Chronic respiratory failure Takotsubo cardiomyopathy history of Takotsubo cardiomyopathy per [facility] Aneurysmal dilatation AAA, 3.4 cm History of COVID-19 07/2023 Lumbar disc herniation Peripheral neuropathy bilateral legs Hx of deep venous thrombosis years ago Anxiety Onychomycosis Hypotension still occurring occasionally Hypertensive urgency History of TIA (transient ischemic attack) 2018, no deficits History of myocardial infarction x 5 Surgical History History of cardiac cath x 5 stents,between 2014- 2017, done in [place] History of cholecystectomy History of section History of coronary artery stent placement Family History Mother Myocardial infarction Daughter Myocardial infarction Denies family history of Ovarian cancer Prostate cancer Breast cancer Colorectal cancer Social History Smoking Status: Current every day smoker Tobacco Type: Cigarettes Age Started Using Tobacco: 15; packs per day: 1; Cigarettes Per Day: half a pack; Second Hand Exposure: No; Do You Dip or Chew Tobacco: No; Hx Alcohol Use: No Hx Substance Use: No Preferred Language: Kiswahili Communication Ability: Effective Visual Impairment: No Limitations Livestock Speculator Required: No Beliefs That Will Affect Care: Taoist Taoist Beliefs: Taoism marital status: Current Living Situation: Family Current Living Situation Comment: lives at home with . current occupational status: disabled How many Children do You have: 6 How many Children do You have Comment: 11 children, 6 biologic - 2 , son murdered in 2022 Feels Safe at Home: Yes Childhood Exposure to Second-Hand Smoke: Yes Diet: diabetic and regular caffeine: Yes (Coffee) Dental Care, Regularly: No Physical Activity Frequency: Daily Physical Activity Frequency Comment: Daily housework/activites Seatbelt Use: always Sunscreen Use: No Assistive Devices: Oxygen - Continuous Allergies Allergies Allergy/AdvReac Type Severity Reaction Status Date / Time latex Allergy Intermediate skin Verified 05/15/24 10:08 itching Influenza Virus Vaccines AdvReac Severe developed Verified 05/15/24 10:08 blood clots vaccine adjuvant system, AdvReac Severe blood clots Verified 05/15/24 10:08 AS01B liposomal [From Shingrix (PF)] varicella-zoster virus AdvReac Severe blood clots Verified 05/15/24 10:08 glycoprotein E, recombinant [From Shingrix (PF)] zolpidem [From Ambien] AdvReac Severe Hallucinati Verified 05/15/24 10:08 ng Home Meds Home Medications Medication Instructions Recorded Confirmed levocetirizine 5 mg tablet (Xyzal) 5 mg PO DAILY PRN allergies 05/26/23 07/24/24 olanzapine 2.5 mg tablet 2.5 mg PO UD PRN Nausea And 11/04/23 07/24/24 Vomiting prochlorperazine maleate 10 mg 10 mg PO DIRECTED PRN 12/28/23 07/24/24 tablet NAUSEA/VOMITING formoterol fumarate 20 mcg/2 mL 0 mcg inhalation BIDR 06/27/24 07/24/24 solution for nebulization (Perforomist) umeclidinium 62.5 mcg/actuation 0 inh inhalation DAILY 06/27/24 07/24/24 blister powder for inhalation (Incruse Ellipta) apixaban 5 mg tablet (Eliquis) 0 mg PO BID 07/24/24 07/24/24 fentanyl 50 mcg/hr transdermal 0 mcg transdermal Q72H 07/24/24 07/24/24 patch lorazepam 1 mg tablet 1 mg PO TID PRN Signs/Symptoms 07/24/24 07/24/24 Terminal Restlessness metoprolol succinate 50 mg 0 mg PO DAILY 07/24/24 07/24/24 tablet,extended release 24 hr ranolazine 500 mg tablet,extended 0 mg PO BID 07/24/24 07/24/24 release,12 hr Previous Rx's Medication Instructions Recorded Wheeled Walker #1 ea 06/16/23 blood-glucose meter (OneTouch #1 ea 10/28/23 Ultra2 Meter) lancets 33 gauge (OneTouch Delica #100 ea 10/28/23 Plus Lancet) Hospital Bed Homecare #1 ea 11/04/23 WHEEL MOBILITY SCOOTER #1 ea 11/08/23 Wheelchair (Manual) #1 ea 11/08/23 transport chair #1 ea 11/10/23 Magic Mouthwash 300 mL mouthwash 10 ml mucous membrane ACHS PRN 11/22/23 dysphagia #300 mL blood sugar diagnostic (OneTouch #100 ea 12/27/23 Ultra Test strips) albuterol sulfate 90 mcg/actuation 2 puff inhalation QID PRN 02/11/24 aerosol inhaler shortness of breath or wheezing #6.7 grams budesonide 0.5 mg/2 mL suspension 0.5 mg (2 mL) NEB BID #60 doses 02/24/24 for nebulization Emotional Support Animal #1 ea 03/31/24 ondansetron HCl 4 mg tablet 4 mg PO QID PRN nausea and 06/05/24 vomiting #120 tabs pregabalin 150 mg capsule (Lyrica) 150 mg PO TID #90 caps 06/15/24 aspirin 81 mg tablet,delayed 81 mg PO QAM #30 tabs 06/29/24 release atorvastatin 40 mg tablet 40 mg PO QAM #30 tabs 06/29/24 bumetanide 1 mg tablet 1 mg PO BID #60 tabs 06/29/24 isosorbide mononitrate 60 mg 60 mg PO QAM #30 tabs 06/29/24 tablet,extended release 24 hr sacubitril 24 mg-valsartan 26 mg 1 tab PO BID #60 tabs 06/29/24 tablet (Entresto) spironolactone 25 mg tablet 25 mg PO QAM #30 tabs 06/29/24 oxycodone 5 mg tablet 10 mg (2 x 5 mg) PO Q6H PRN pain 07/10/24 or breathlessness #30 tabs nitroglycerin 0.4 mg sublingual 0.4 mg sublingual Q5M PRN chest 07/19/24 tablet pain #30 tabs Results & Data (ED) Vital Signs Vital Signs - 24 hr 07/24/24 09:12 07/24/24 09:12 07/24/24 09:15 Temperature 36.5 C Temperature Source Oral Pulse Rate 130 H Pulse Rate [Right Finger] Pulse Rate from SpO2 Sensor Respiratory Rate 30 H Respiratory Effort / Characteristics Spontaneous Labored Short of Breath SOB on Exertion Tripoding Respiratory Depth Shallow Respiratory Pattern Blood Pressure 175/119 H 175/119 H 175/119 H Blood Pressure [Left Arm] Blood Pressure Mean 158 158 137 Blood Pressure Mean [Left Arm] Blood Pressure Position [Left Arm] Pulse Oximetry 80 L Oxygen Delivery Method Room Air Oxygen Flow Rate Fraction of Inspired Oxygen Sepsis Recent Fever Within 48 Hours No Sepsis New/Unexplained Change in Mental Status N/A Sepsis Action Taken by Nursing Physician Notified 07/24/24 09:15 07/24/24 09:15 07/24/24 09:15 Temperature Temperature Source Oral Pulse Rate Pulse Rate [Right Finger] Pulse Rate from SpO2 Sensor Respiratory Rate Respiratory Effort / Characteristics Labored Respiratory Depth Respiratory Pattern Blood Pressure Blood Pressure [Left Arm] Blood Pressure Mean Blood Pressure Mean [Left Arm] Blood Pressure Position [Left Arm] Pulse Oximetry Oxygen Delivery Method Nasal Cannula Oxygen Flow Rate Fraction of Inspired Oxygen Sepsis Recent Fever Within 48 Hours Sepsis New/Unexplained Change in Mental Status Sepsis Action Taken by Nursing 07/24/24 09:17 07/24/24 09:17 07/24/24 09:20 Temperature Temperature Source Pulse Rate 130 H 81 Pulse Rate [Right Finger] Pulse Rate from SpO2 Sensor Respiratory Rate Respiratory Effort / Characteristics Respiratory Depth Respiratory Pattern Blood Pressure Blood Pressure [Left Arm] Blood Pressure Mean Blood Pressure Mean [Left Arm] Blood Pressure Position [Left Arm] Pulse Oximetry 90 Oxygen Delivery Method Nasal Cannula Oxygen Flow Rate 6 Fraction of Inspired Oxygen Sepsis Recent Fever Within 48 Hours Sepsis New/Unexplained Change in Mental Status Sepsis Action Taken by Nursing 07/24/24 09:21 07/24/24 09:21 07/24/24 09:25 Temperature Temperature Source Pulse Rate 122 H 113 H Pulse Rate [Right Finger] 119 H Pulse Rate from SpO2 Sensor 122 H Respiratory Rate 20 23 22 Respiratory Effort / Characteristics Spontaneous Spontaneous Respiratory Depth Respiratory Pattern Tachypnea Blood Pressure Blood Pressure [Left Arm] Blood Pressure Mean Blood Pressure Mean [Left Arm] Blood Pressure Position [Left Arm] Pulse Oximetry 91 90 96 Oxygen Delivery Method Nasal Cannula Oxygen Flow Rate 6 Fraction of Inspired Oxygen 40 Sepsis Recent Fever Within 48 Hours Sepsis New/Unexplained Change in Mental Status Sepsis Action Taken by Nursing 07/24/24 09:35 07/24/24 09:35 07/24/24 10:00 Temperature Temperature Source Pulse Rate Pulse Rate [Right Finger] Pulse Rate from SpO2 Sensor Respiratory Rate Respiratory Effort / Characteristics Respiratory Depth Respiratory Pattern Blood Pressure 130/102 H 130/102 H 144/99 H Blood Pressure [Left Arm] Blood Pressure Mean 118 118 113 Blood Pressure Mean [Left Arm] Blood Pressure Position [Left Arm] Pulse Oximetry Oxygen Delivery Method Oxygen Flow Rate Fraction of Inspired Oxygen Sepsis Recent Fever Within 48 Hours Sepsis New/Unexplained Change in Mental Status Sepsis Action Taken by Nursing 07/24/24 10:03 07/24/24 10:12 07/24/24 11:00 Temperature Temperature Source Pulse Rate 108 H 104 H Pulse Rate [Right Finger] 102 H Pulse Rate from SpO2 Sensor 108 H 104 H Respiratory Rate 18 18 20 Respiratory Effort / Characteristics Respiratory Depth Respiratory Pattern Blood Pressure Blood Pressure [Left Arm] 128/103 H Blood Pressure Mean Blood Pressure Mean [Left Arm] 111 Blood Pressure Position [Left Arm] Semi-fowlers Pulse Oximetry 98 98 98 Oxygen Delivery Method BiPAP Oxygen Flow Rate Fraction of Inspired Oxygen 40 40 Sepsis Recent Fever Within 48 Hours Sepsis New/Unexplained Change in Mental Status Sepsis Action Taken by Intermediate Medications Current Medication List: was personally reviewed by me Laboratory Data Attestation: I reviewed the patient's lab results. 07/24/24 09:20 07/24/24 09:20 Lab Results 07/24/24 07/24/24 Range/Units 09:20 09:34 WBC 13.26 H (4.8-10.8) K/ul RBC 4.94 (4.20-5.40) M/uL Hgb 15.3 (12.0-16.0) g/dl Hct 44.9 (37.0-47.0) % MCV 90.9 (80.0-100.0) fL MCH 31.0 (25.0-34.0) pg MCHC 34.1 (32.0-36.0) g/dL RDW Std Deviation 49.9 H (36.4-46.3) fL RDW Coeff of Chanel 15.2 H (11.5-14.5) % Plt Count 310 (130-400) K/uL MPV 10.5 (9.4-12.4) fL Immature Gran % (Auto) 0.9 % Neut % (Auto) 84.9 % Lymph % (Auto) 9.0 % [place] % (Auto) 4.8 % Eos % (Auto) 0.2 % Baso % (Auto) 0.2 % Neut # (Auto) 11.26 H (1.40-6.50) K/uL Lymph # (Auto) 1.19 L (1.20-3.40) K/uL [place] # (Auto) 0.64 H (0.11-0.59) K/uL Eos # (Auto) 0.02 (0.00-0.50) K/uL Baso # (Auto) 0.03 (0.00-0.20) K/uL Immature Gran # (Auto) 0.12 (0.01-0.20) K/uL PT 10.7 (9.0-12.0) Seconds INR 1.0 (0.9-1.1) APTT 28 (21-31) Seconds PTT Ratio 1.0 VBG pH 7.38 (7.36-7.41) VBG pCO2 50 (38-50) mmHg VBG pO2 51 mmHg VBG HCO3 30 mmol/L VBG O2 Saturation 79.9 % VBG Base Excess 3.4 mEq/L Sodium 129 L (136-145) mmol/L Potassium 3.6 (3.5-5.1) mmol/L Chloride 90 L (98-107) mmol/L Carbon Dioxide 27 (21-32) mmol/L Anion Gap 12 H (3-11) BUN 26 H (6-23) mg/dl Creatinine 1.19 (0.6-1.2) mg/dl Est Cr Clr Drug Dosing 54.6 ml/min eGFR 50.74 BUN/Creatinine Ratio 21.8 H (10-20) Glucose 312 H* (70-99(Fasting)) mg/dl Calcium 10.3 (8.6-10.3) mg/dl Magnesium 1.6 L (1.7-2.4) mg/dl Total Bilirubin 0.7 (0.2-1.0) mg/dl AST 14 (13-39) U/L ALT 14 (7-52) U/L Alkaline Phosphatase 96 (34-104) U/L Troponin I High Sens 91.7 H* (0-14) pg/ml B-Natriuretic Peptide 1681 H (0-100) pg/ml Total Protein 7.6 (6.0-8.3) gm/dl Albumin 4.1 (3.4-5.0) gm/dl Globulin 3.5 (2.5-4.0) gm/dl Albumin/Globulin Ratio 1.2 (0.9-2) Adenovirus (PCR) Not Detected (NotDetected) B. pertussis DNA (PCR) Not Detected (NotDetected) B.parapertussis DNA PCR Not Detected (NotDetected) C. pneumoniae DNA (PCR) Not Detected (NotDetected) Coronavirus OC43 (PCR) Not Detected (NotDetected) Coronavirus HKU1 (PCR) Not Detected (NotDetected) Coronavirus 229E (PCR) Not Detected (NotDetected) SARS-CoV-2 (PCR) Not Detected (NotDetected) Coronavirus NL63 (PCR) Not Detected (NotDetected) Human Metapneumovir PCR Not Detected (NotDetected) Influenza Type A (PCR) Not Detected (NotDetected) Influenza Type B (PCR) Not Detected (NotDetected) M. pneumoniae (PCR) Not Detected (NotDetected) Parainfluenza 1 (PCR) Not Detected (NotDetected) Parainfluenza 2 (PCR) Not Detected (NotDetected) Parainfluenza 3 (PCR) Not Detected (NotDetected) Parainfluenza 4 (PCR) Not Detected (NotDetected) RSV (PCR) Not Detected (NotDetected) Entero/Rhino (PCR) Not Detected (NotDetected) Administered Medications Miscellaneous (Check Fentanyl Patch Placement) 1 each N/A QS [facility] Stop: 08/23/24 15:59 Last Admin: 07/24/24 16:16 Dose: 1 each Documented By: ELGIN Nitroglycerin (Nitroglycerin 2% Ointment 30gm Tube) 2 inch EXT Q6H [facility] Stop: 07/25/24 09:14 Last Admin: 07/24/24 16:15 Dose: 2 inch Documented By: Admin: 07/24/24 09:20 Dose: 2 inch Documented By: KARON Oxycodone HCl (Oxycodone Hcl Ir 5 Mg Tab (Immediate Release)) 10 mg PO Q6H PRN PRN Reason: pain or breathlessness Stop: 08/07/24 12:24 Last Admin: 07/24/24 14:31 Dose: 10 mg Documented By: ELGIN Pregabalin (Pregabalin 150 Mg Cap) 150 mg PO TID [facility] Stop: 08/23/24 13:59 Last Admin: 07/24/24 13:44 Dose: Not Given Documented By: ELGIN Discontinued Medications Albuterol (Albut/Ipratrop 3mg/0.5mg Neb 3 Ml Vial) 3 ml NEB NOW STA; Protocol Stop: 07/24/24 09:17 Last Admin: 07/24/24 09:21 Dose: 3 ml Documented By: JULIA Bumetanide 1 mg/ Syringe 4 mls @ 4 mls/min IV NOW STA Stop: 07/24/24 09:44 Last Admin: 07/24/24 10:20 Dose: 4 mls/min Documented By: KARON Ceftriaxone Sodium (Rocephin) 2,000 mg in 50 mls @ 100 mls/hr IV NOW STA Stop: 07/24/24 10:48 Last Infusion: 07/24/24 11:16 Dose: Infused Documented By: Admin: 07/24/24 10:46 Dose: 100 mls/hr Documented By: RAFAEL Bumetanide 1 mg/ Syringe 4 mls @ 4 mls/min IV ONE ONE Stop: 07/24/24 11:23 Last Admin: 07/24/24 12:46 Dose: 4 mls/min Documented By: ELGIN Magnesium Sulfate/Dextrose (Magnesium Sulfate / D5w) 1 gm in 100 mls @ 50 mls/hr IV Q2H [facility]ANIA Stop: 07/24/24 15:29 Last Infusion: 07/24/24 14:51 Dose: Infused Documented By: Admin: 07/24/24 12:47 Dose: 50 mls/hr Documented By: Infusion: 07/24/24 12:47 Dose: Infused Documented By: Admin: 07/24/24 12:46 Dose: 50 mls/hr Documented By: ELGIN Nitroglycerin (Nitroglycerin 2% Ointment 30gm Tube) Confirm Administered Dose 36 inch EXT .STK-MED ONE Stop: 07/24/24 09:16 Last Admin: 07/24/24 09:20 Dose: Not Given Documented By: KARON Ondansetron HCl (Ondansetron Inj 2 Mg/Ml 2 Ml Vial) 4 mg IV NOW STA Stop: 07/24/24 09:25 Last Admin: 07/24/24 09:31 Dose: 4 mg Documented By: RAFAEL Imaging Data Radiologist's Impression: Chest X-Ray 07/24/24 09:16 XR chest 1V portable HISTORY: 64 years-old Female spb acute shortness of breath COMPARISON: Chest CT 07/09/2024 TECHNIQUE: AP view the chest FINDINGS: Cardiac silhouette is enlarged. Emphysema with bilateral mixed interstitial and alveolar opacities redemonstrated, progressed from prior. Small pleural effusions. Bones appear grossly intact. IMPRESSION: 1. Cardiomegaly with progressive mixed interstitial and alveolar disease . 2. Small pleural effusions. ACT 112: Negative or not required by law. The above report was generated using voice recognition software. It may contain grammatical, syntax or spelling errors. Electronically signed by: Garret Bowles M.D. 07/24/2024 9:50 AM Discharge Plan Visit Data Chief Complaint: Shortness of Breath/Dyspnea Stated Complaint: SOB ED Provider: Onesimo Guerra Discharge Problem: Respiratory distress, Leukocytosis, COPD exacerbation, Tachypnea, Tachycardia, Fluid overload, Elevated troponin, Acute hyperglycemia Patient Disposition: Admitted As Inpatient Condition: Serious Discharge Instructions Interventions: ED Discharge Assessment Last Done: 07/24/24 11:53 Discharge Problem: Leukocytosis Qualifiers: Leukocytosis type: unspecified Qualified Code(s): D72.829 - Elevated white blood cell count, unspecified Fluid overload Qualifiers: Hypervolemia type: unspecified Qualified Code(s): E87.70 - Fluid overload, unspecified
[2024-07-24] MEDS: BUMETANIDE 1 MG in SYRINGE 0 ML IV STA (10:20)
[2024-07-24 10:41] LABS: Adenovirus PCR Not Detected (NotDetected); Bordetella parapertussis PCR Not Detected (NotDetected); Bordetella pertussis PCR Not Detected (NotDetected); Chlamydia pneumoniae PCR Not Detected (NotDetected); Coronavirus 229E PCR Not Detected (NotDetected); Coronavirus CoV-2 (COVID19)PCR Not Detected (NotDetected); Coronavirus HKU1 PCR Not Detected (NotDetected); Coronavirus NL63 PCR Not Detected (NotDetected); Coronavirus OC43PCR Not Detected (NotDetected); Human Metapneumovirus PCR Not Detected (NotDetected); Influenza A PCR Not Detected (NotDetected); Influenza B PCR Not Detected (NotDetected); Mycoplasma pneumoniae PCR Not Detected (NotDetected); Parainfluenza Virus 1 PCR Not Detected (NotDetected); Parainfluenza Virus 2 PCR Not Detected (NotDetected); Parainfluenza Virus 3 PCR Not Detected (NotDetected); Parainfluenza Virus 4 PCR Not Detected (NotDetected); Respiratory Syncytial VirusPCR Not Detected (NotDetected); Rhinovirus/Enterovirus PCR Not Detected (NotDetected)
--- NOTE | 2024-07-24 10:41 | History & Physical Report ---
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 suspect 2/2 acute HFrEF on 2-3 L O2 NC at home (reports only uses HS) 80% on RA in ED -> currently on Bipap EMS: 1 DuoNeb, 2 albuterol tx, 125 Solu-Medrol ED: Nitropaste, Rocephin, Duoneb, Zofran, 1mg IV Bumex - patient had relief with above - CXR showing cardiomegaly with mixed disease along with small pleural effusions, appears improved from XR 07/09 - leukocytosis with neutrophil predominance, no left shift - Afebrile - biofire negative - patient continues to smoke cigarettes at home - 2 pack/day - will discontinue IV abx at this time, not fitting clinical picture for PNA - blood cultures ordered in ED -> follow - wean Bipap as tolerated -> transition to NC and wean to home 2-3L as tolerated - Additional 1mg IV Bumex on admission (will reassess in afternoon to adjust dosing) - hold home PO Bumex until asses for need of continued IV vs home PO - continue DuoNeb prn Q6H - Albuterol HFA prn - continue home Perforomist and Incruse Ellipta (2) Acute HFrEF (heart failure with reduced ejection fraction): Plan: Acute on chronic HFrEF- patient with worsening dyspnea and bilateral lower ext remity edema stated she has been compliant on home Bumex 1mg PO BID but is not really following a fluid or sodium restriction as she had been on hospice - History of ischemic cardiomyopathy - CAD s/p 5 stents, with last being in 2018 - Last echocardiogram on 06/27/24 with EF 30 to 35%, severe hypokinesis to akinesis of inferior and inferior lateral irizarry, as well as moderate to severe aortic stenosis - recent NSTEMI in with cardiac cath showing severe multivessel disease, including 95% left main disease-not a candidate for CABG - BNP 1681 on admission - Heart healthy, low-sodium diet - diuresis with 2mg Bumex IV on admission -> reassess in PM as above to continue PO vs IV dosing - continue Entresto, spironolactone, and metoprolol - Strict I&O monitoring - Daily weights - osmar stockings, promote leg elevation - daily BMP and Mg with diuretic use (3) CAD (coronary artery disease): Plan: as above (4) Elevated troponin: Plan: history of CAD and NSTEMI as above suspect secondary to demand ischemia - trop 91.7 in ED -> 1006.5; will trend - trended in upper with NSTEMI and with recent admission / demand - Patient complaining of chest pain x multiple days - has been taking 2-3 nitro a day at home - EKG similar to previous 07/09, no acute ischemic changes - continue with Nitropaste x 24 hours - Will increase isosorbide mononitrate 07/25, 60mg -> 120mg - continue ASA, atorvastatin, metoprolol, and ranolazine - not a candidate for CABG given comorbidities (5) Acute hyponatremia: Plan: 129 on admission Suspect secondary to volume overload - Expect to improve with diuresis - Trend BMP (6) Leukocytosis: Plan: suspect secondary to stress - Afebrile - WBC 13.26, neutrophil predominance, no left shift - Discontinue Rocephin as does not appear to be of infectious origin at this time - follow blood cultures - Trend CBC with differential (7) Hyperglycemia due to type 2 diabetes mellitus: Plan: recently discontinued metformin as was transition to hospice care during previous admissions - Most recent A1C 5.5 on 05/08 - hyperglycemic on admission, glucose 312 - patient agreeable to loose SSI with target BSG range 110-160mg/dL, CF 30 - T2DM diet - BSG ACHS if eating, q6h if npo (8) Hypomagnesemia: Plan: 1.6 on admission - 2G IV ordered - add daily PO supplement to begin 07/25 - trend mg with diuretic use Plan Chronic stable diagnoses: Paroxysmal a fib - NSR on admission, continue Eliquis and metoprolol 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, s/p WBRT - was on home hospice prior to admission, would like to discontinue on discharge chronic pain - continue home fentanyl patch (placed Am 15), oxycodone prn, and pregabalin TID anxiety - continue Ativan prn VTE ppx: Continue home Eliquis Diet: NPO while on Bipap -> transition to heart healthy, DM2, low Na diet when weaned to NC Code status: Full code - patient was on home hospice prior to admission, she would like to discontinue this on discharge - patient would want both CPR and intubation if needed Dispo: PCU Admission and Anticipated Discharge Date Admission Date: 07/24/24 History of Present Illness Chief Complaint: dyspnea Primary Care Provider: Katarina Andre MD Patient is a 64-year-old female with a past medical history of small cell carcinoma of left lower lobe with metastatic disease to brain, s/p WBRT, paroxysmal A-fib on Eliquis, COPD on home oxygen 2-3 L O2 (reports only using at nighttime), diffuse multivessel coronary disease, NSTEMI during recent admission 06/27-06/29. She was just discharged home on 07/10 with acute on chronic respiratory failure requiring BiPAP, BiPAP was weaned to nasal cannula, she was given IV Bumex that resulted in hypotension, along with a course of oral antibiotics for possible pneumonia. She went home on hospice at this time. The patient presents today with her son and , due to increasing lower extremity edema and gradually worsening dyspnea. She called EMS because of dyspnea this morning. They gave her 1 DuoNeb, 2 albuterol treatments, and 125 IV Solu-Medrol. In the ED she was placed on BiPAP and given Nitropaste, Rocephin, 1 DuoNeb, Zofran, and 1 mg of Bumex IV. She stated that she has a lot of relief with those treatments, currently on BiPAP O2 trending between 97 to 98%. She stated that she has had worsening chest pain since her recent discharge, she takes nitroglycerin 2-3 times a day with relief. Patient denies fever, chills, dizziness, cough, sputum production. She continues to smoke 2 packs of cigarettes per day. She only uses her home oxygen overnight. She took all of her a.m. medications today, she stated that she has been compliant on all of her home medications. She just put her fentanyl patch on yesterday, orders adjusted to be replaced 72 hours after placement. Her family stated that they are unhappy with the hospice care and she agreed that she would like to be transitioned off of hospice on discharge. She wishes to be full code at this time, she would like to be resuscitated with CPR and intubation if needed in the event of acute emergency. Allergies Allergy/AdvReac Type Severity Reaction Status Date / Time latex Allergy Intermediate skin Verified 05/15/24 10:08 itching Influenza Virus Vaccines AdvReac Severe developed Verified 05/15/24 10:08 blood clots vaccine adjuvant system, AdvReac Severe blood clots Verified 05/15/24 10:08 AS01B liposomal [From Shingrix (PF)] varicella-zoster virus AdvReac Severe blood clots Verified 05/15/24 10:08 glycoprotein E, recombinant [From Shingrix (PF)] zolpidem [From Ambien] AdvReac Severe Hallucinati Verified 05/15/24 10:08 ng Home Medications Medication Instructions Recorded Confirmed Type levocetirizine 5 mg tablet (Xyzal) 5 mg PO DAILY PRN allergies 05/26/23 07/24/24 History Wheeled Walker #1 ea 06/16/23 05/15/24 Rx blood-glucose meter (FloopTouch #1 ea 10/28/23 05/15/24 Rx Ultra2 Meter) lancets 33 gauge (FloopTouch Delica #100 ea 10/28/23 05/15/24 Rx Plus Lancet) Hospital Bed Homecare #1 ea 11/04/23 05/15/24 Rx olanzapine 2.5 mg tablet 2.5 mg PO UD PRN Nausea And 11/04/23 07/24/24 History Vomiting WHEEL MOBILITY SCOOTER #1 ea 11/08/23 05/15/24 Rx Wheelchair (Manual) #1 ea 11/08/23 05/15/24 Rx transport chair #1 ea 11/10/23 05/15/24 Rx Magic Mouthwash 300 mL mouthwash 10 ml mucous membrane ACHS PRN 11/22/23 07/24/24 Rx dysphagia #300 mL blood sugar diagnostic (OneTouch #100 ea 12/27/23 05/15/24 Rx Ultra Test strips) prochlorperazine maleate 10 mg 10 mg PO DIRECTED PRN 12/28/23 07/24/24 History tablet NAUSEA/VOMITING albuterol sulfate 90 mcg/actuation 2 puff inhalation QID PRN 02/11/24 07/24/24 Rx aerosol inhaler shortness of breath or wheezing #6.7 grams budesonide 0.5 mg/2 mL suspension 0.5 mg (2 mL) NEB BID #60 doses 02/24/24 Rx for nebulization Emotional Support Animal #1 ea 03/31/24 05/15/24 Rx ondansetron HCl 4 mg tablet 4 mg PO QID PRN nausea and 06/05/24 07/24/24 Rx vomiting #120 tabs pregabalin 150 mg capsule (Lyrica) 150 mg PO TID #90 caps 06/15/24 07/24/24 Rx formoterol fumarate 20 mcg/2 mL 0 mcg inhalation BIDR 06/27/24 07/24/24 History solution for nebulization (Perforomist) umeclidinium 62.5 mcg/actuation 0 inh inhalation DAILY 06/27/24 07/24/24 History blister powder for inhalation (Incruse Ellipta) aspirin 81 mg tablet,delayed 81 mg PO QAM #30 tabs 06/29/24 07/24/24 Rx release atorvastatin 40 mg tablet 40 mg PO QAM #30 tabs 06/29/24 07/24/24 Rx bumetanide 1 mg tablet 1 mg PO BID #60 tabs 06/29/24 07/24/24 Rx isosorbide mononitrate 60 mg 60 mg PO QAM #30 tabs 06/29/24 07/24/24 Rx tablet,extended release 24 hr sacubitril 24 mg-valsartan 26 mg 1 tab PO BID #60 tabs 06/29/24 07/24/24 Rx tablet (Entresto) spironolactone 25 mg tablet 25 mg PO QAM #30 tabs 06/29/24 07/24/24 Rx oxycodone 5 mg tablet 10 mg (2 x 5 mg) PO Q6H PRN pain 07/10/24 07/24/24 Rx or breathlessness #30 tabs nitroglycerin 0.4 mg sublingual 0.4 mg sublingual Q5M PRN chest 07/19/24 07/24/24 Rx tablet pain #30 tabs apixaban 5 mg tablet (Eliquis) 0 mg PO BID 07/24/24 07/24/24 History fentanyl 50 mcg/hr transdermal 0 mcg transdermal Q72H 07/24/24 07/24/24 History patch lorazepam 1 mg tablet 1 mg PO TID PRN Signs/Symptoms 07/24/24 07/24/24 History Terminal Restlessness metoprolol succinate 50 mg 0 mg PO DAILY 07/24/24 07/24/24 History tablet,extended release 24 hr ranolazine 500 mg tablet,extended 0 mg PO BID 07/24/24 07/24/24 History release,12 hr Past Med/Surg History Problem List Hypomagnesemia Hyperglycemia due to type 2 diabetes mellitus Leukocytosis Acute on chronic hypoxic respiratory failure Acute hyponatremia (Acute) Acute kidney injury (Acute) Respiratory failure (Acute) Cardiomyopathy Acute HFrEF (heart failure with reduced ejection fraction) Paroxysmal atrial fibrillation Aortic stenosis mild to moderate on 05/2023 echo (DAVIS 1.0 cm2, mean PG 15 mmHg) Diabetes mellitus, type 2 Thrush, oral CAD (coronary artery disease) Tobacco dependence Acute on chronic diastolic (congestive) heart failure Hypoxia Acute hypoxemic respiratory failure (Acute) Acute dyspnea (Acute) Bilateral leg edema (Acute) Lower extremity pain Unwitnessed fall (Acute) Aspiration pneumonia (Acute) Elevated troponin (Acute) Cancer related pain (Acute) Psychosocial problem Brain metastasis (Chronic) Hemoptysis Encounter for pain management Small cell carcinoma of lung (Acute) Anemia (Acute) Diabetes Unusual change in behavior 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 details Chest pain (Acute) Abscess of upper gum Acute bronchitis Cough Allergic rhinitis Dyspnea on exertion Routine health maintenance Trochanteric bursitis of both hips Stress bladder incontinence, female Smoker Insomnia (Chronic) HTN (hypertension), benign (Chronic) Left hip pain (Acute) Anxiety (Acute) Asthma (Chronic) Lyme disease (Chronic) Fibromyalgia (Chronic) Chronic radicular lumbar pain (Chronic) Hypothyroid (Chronic) COPD (chronic obstructive pulmonary disease) (Chronic) CVD (cardiovascular disease) (Chronic) Medical History Acute on chronic respiratory failure with hypoxia and hypercapnia Non-ST elevation MD (NSTEMI) Refusal of blood transfusions as patient is [facility] Lung cancer metastatic to brain Chronic respiratory failure Takotsubo cardiomyopathy history of Takotsubo cardiomyopathy per [facility] Aneurysmal dilatation AAA, 3.4 cm History of COVID-19 07/2023 Lumbar disc herniation Peripheral neuropathy bilateral legs Hx of deep venous thrombosis years ago Anxiety Onychomycosis Hypotension still occurring occasionally Hypertensive urgency History of TIA (transient ischemic attack) 2018, no deficits History of myocardial infarction x 5 Surgical History History of cardiac cath x 5 stents,between 2014- 2017, done in [place] History of cholecystectomy History of section History of coronary artery stent placement Family History Mother Myocardial infarction Daughter Myocardial infarction Denies family history of Ovarian cancer Prostate cancer Breast cancer Colorectal cancer Social History Smoking Status: Current every day smoker Tobacco Type: Cigarettes Age Started Using Tobacco: 15; packs per day: 1; Cigarettes Per Day: half a pack; Second Hand Exposure: No; Do You Dip or Chew Tobacco: No; Hx Alcohol Use: No Hx Substance Use: No Preferred Language: Tajik Communication Ability: Effective Visual Impairment: No Limitations Site Lead Required: No Beliefs That Will Affect Care: Mandaen Mandaen Beliefs: [facility] marital status: Current Living Situation: Family Current Living Situation Comment: lives at home with . current occupational status: disabled How many Children do You have: 6 How many Children do You have Comment: 11 children, 6 biologic - 2 , son murdered in 2022 Feels Safe at Home: Yes Childhood Exposure to Second-Hand Smoke: Yes Diet: diabetic and regular caffeine: Yes (Coffee) Dental Care, Regularly: No Physical Activity Frequency: Daily Physical Activity Frequency Comment: Daily housework/activites Seatbelt Use: always Sunscreen Use: No Assistive Devices: Oxygen - Continuous Review of Systems Review of Systems: see HPI Physical Exam Physical Exam: The patient is lethargic, normocephalic and atraumatic. Non-toxic appearing. HEENT- EOMI, mucous membranes moist. Hearing grossly intact. Heart-normal S1 and S2. No murmurs, rubs or gallops. Lungs-diminished bilaterally, no accessory muscle use. On Bipap. Abdomen-normal bowel sounds and soft. No ascites noted. Non-tender. Extremities- no clubbing, cyanosis. +1 pitting edema bl LE. Results & Data Results & Data Vital Signs (Past 12 Hours) Vital Signs Temp Pulse Pulse Resp BP Pulse Ox O2 Del Method 07/24/24 10:12 104 H 18 98 07/24/24 10:03 108 H 18 98 07/24/24 10:00 144/99 H 07/24/24 09:35 130/102 H 07/24/24 09:35 130/102 H 07/24/24 09:25 113 H 22 96 07/24/24 09:21 122 H 23 90 07/24/24 09:21 119 H 20 91 Nasal Cannula 07/24/24 09:20 90 Nasal Cannula 07/24/24 09:17 130 H 07/24/24 09:15 Nasal Cannula 07/24/24 09:15 36.5 C 130 H 30 H 175/119 H 80 L Room Air 07/24/24 09:12 175/119 H 07/24/24 09:12 175/119 H O2 Flow Rate FiO2 07/24/24 10:12 40 07/24/24 10:03 40 07/24/24 10:00 07/24/24 09:35 07/24/24 09:35 07/24/24 09:25 40 07/24/24 09:21 07/24/24 09:21 6 07/24/24 09:20 6 07/24/24 09:17 07/24/24 09:15 07/24/24 09:15 07/24/24 09:12 07/24/24 09:12 Laboratory Results CBC, CMP, troponin, BNP, coags, VBG reviewed Diagnostic Findings CXR reviewed Code Status & VTE Plan Code Status full code VTE Prophylaxis Plan VTE Prophylaxis will be ordered: Yes Supervising Physician Co-Signing Physician Notes PA Supervision Note: I personally saw and examined the patient. I verified all franks points and agree with JERONIMO Garcia with the following exceptions and/or additions: S-Pt p/w worsening SOB and leg swelling. She was on hospice at home and is well known to me. She revoked hospice to come in for treatment, She continues to smoke 2 packs of cigarettes daily and is not using O2 during the day. She tells me she didn't follow a sodium or fluid restriction but this wasn't stressed on discharge last time because she was returning home on hospice. She was having frequent ches tpain at home relieved with nitro and after receiving nitropaste in ER CP is now gone History and ROS otherwise reviewed as above O- Vitals reviewed Gen: [drowsy,NAD] HEENT: [anicteric sclerae] CV: [RRR 3/6SEM at RUSB, 2+ pitting edema legs to knees bilat] Pulm: [+bibasilar crackles and occasional wheeze] Abd: [+BS soft NT ND no masses or hernias] Skin: [no rashes, warm/dry] ECG with NSR, ST depressions in lateral and possible slight elevation in inf leads A/P-64 yo female here with acute on chronic respiratory failure with hypoxia, acute on chronic HFrEF due to lack of sodium and fluid restriction at home, also with NSTEMI, angina, ongoing heavy smoking use. This all in the setting of lung CA, COPD, and inoperable severe CAD. Admit for diuresis, O2 support, increase antianginals Continue usual pain meds from home Revoking hospice PG Care Time/CCT Total # of Minutes Spent Total Time Spent with Patient: Total time spent is greater than 50% in coordination of care (as documented) at patient's floor/unit and/or counseling patient: Coding Level of Care Code 55718 INT INP/OBS CARE 3/75MIN Diagnoses Acute on chronic hypoxic respiratory failure J96.21 Acute HFrEF (heart failure with reduced ejection fraction) I50.21 CAD (coronary artery disease) I25.10 Elevated troponin R79.89 Acute hyponatremia E87.1 Leukocytosis D72.829 Hyperglycemia due to type 2 diabetes mellitus E11.65 Hypomagnesemia E83.42
[2024-07-24] MEDS: cefTRIAXone SODIUM 2,000 MG/50 ML BAG IV STA (10:46)
[2024-07-24] MEDS ORDERED: GLUCAGON FOR INJ 1 MG VIAL SQ PRN (12:08)
[2024-07-24] MEDS ORDERED: CARBOHYDRATES FOR HYPOGLYCEMIA PO PRN (12:08)
[2024-07-24] MEDS ORDERED: GLUCOSE 10 TAB/TUBE PO PRN (12:08)
[2024-07-24] MEDS ORDERED: DEXTROSE 50% 50 ML SYRINGE IV PRN (12:08)
[2024-07-24] MEDS ORDERED: GLUCOSE 40% GEL 15 GM TUBE PO PRN (12:08)
[2024-07-24] MEDS ORDERED: DOCUSATE SODIUM 100 MG CAP PO PRN (12:25)
[2024-07-24] MEDS ORDERED: ALBUT/IPRATROP 3MG/0.5MG NEB 3 ML VIAL NEB PRN (12:25)
[2024-07-24] MEDS ORDERED: ALBUTEROL HFA 8 GM INHALER INH PRN (12:25)
[2024-07-24] MEDS ORDERED: CETIRIZINE HCL 10 MG TABLET PO PRN (12:43)
[2024-07-24] MEDS ORDERED: FIRST - Mouthwash BLM 5 ML UDP PO PRN (12:44)
[2024-07-24] MEDS: MAGNESIUM SULFATE / D5W 1 GM/100 ML BAG IV SCH (12:46)
[2024-07-24] MEDS: BUMETANIDE 1 MG in SYRINGE 0 ML IV ONE (12:46)
[2024-07-24] MEDS: PREGABALIN 150 MG CAP PO SCH (13:44)
[2024-07-24] MEDS: oxyCODONE HCL IR 5 MG TAB (IMMEDIATE RELEASE) PO PRN (14:31)
[2024-07-24 15:15] LABS: Appearance Urine Clear (Clear); Bacteria Urine Automated None Seen (None Seen); Bilirubin Urine Negative (Negative); Blood Urine Negative (Negative); Cast Urine Automated 0-2 /lpf (0-2); Color Urine Yellow; Epithelial Cell Urine Auto 0-2 /hpf (0-2); Glucose Urine UA Negative (Negative); Ketones Urine Negative (Negative); Leukocyte Esterase Urine Trace (Negative); Nitrite Urine Negative (Negative); Protein Urine Negative (Negative); RBC Urine Automated 0-2 /hpf (0-2); Specific Gravity Urine 1.009 (1.000-1.030); Urobilinogen Urine Negative (Negative); WBC Urine Automated 0-5 /hpf (0-5); pH Urine 5.5 (4.5-7.5)
[2024-07-24] MEDS: CHECK fentaNYL PATCH PLACEMENT SCH (16:16)
[2024-07-24] MEDS: INSULIN ASPART PER UNIT CHARGE SC SCH (17:49)
[2024-07-24] MEDS: BUMETANIDE 2 MG in SYRINGE 0 ML IV SCH (17:51)
[2024-07-24] MEDS: FORMOTEROL 20 MCG/2 ML VIAL INH SCH (19:08)
[2024-07-24] MEDS: RANOLAZINE 500 MG ER TAB PO SCH (20:43)
[2024-07-24] MEDS: VALSARTAN/SACUBITRIL 26/24MG TAB PO SCH (20:43)
[2024-07-24] MEDS: APIXABAN 5 MG TABLET PO SCH (20:43)
[2024-07-25] MEDS: LORazepam 1 MG TAB PO PRN (00:04)
[2024-07-25 07:20] LABS: Basophils # (auto) 0.01 K/uL (0.00-0.20); Basophils % (auto) 0.1 %; Hematocrit (blood only) 37.1 % (37.0-47.0); Hemoglobin 12.7 g/dl (12.0-16.0); Immature Granulocytes # (auto) 0.08 K/uL (0.01-0.20); Immature Granulocytes % (auto) 0.8 %; Lymphocytes # (auto) 0.57 K/uL (1.20-3.40); Lymphocytes % (auto) 5.9 %; Mean Corpuscular Hemoglobin 31.1 pg (25.0-34.0); Mean Corpuscular Hgb Conc 34.2 g/dL (32.0-36.0); Mean Corpuscular Volume 90.7 fL (80.0-100.0); Mean Platelet Volume 10.4 fL (9.4-12.4); Monocytes # (auto) 0.47 K/uL (0.11-0.59); Monocytes % (auto) 4.8 %; Neutrophils # (auto) 8.58 K/uL (1.40-6.50); Neutrophils % (auto) 88.4 %; Platelet Count 266 K/uL (130-400); RDW Coefficient of Variation 15.7 % (11.5-14.5); RDW Standard Deviation 51.4 fL (36.4-46.3); Red Blood Count 4.09 M/uL (4.20-5.40); White Blood Count 9.71 K/ul (4.8-10.8)
[2024-07-25 07:38] LABS: Calcium 10.1 mg/dl (8.6-10.3); Creatinine Clr Calc Pharmacy 74.5 ml/min; Magnesium 1.8 mg/dl (1.7-2.4); Potassium 4.4 mmol/L (3.5-5.1)
[2024-07-25] MEDS: METOPROLOL SUCC 50MG EXT REL TAB PO SCH (08:59)
[2024-07-25] MEDS: MAGNESIUM OXIDE 400 MG TAB PO SCH (09:00)
[2024-07-25] MEDS: ASPIRIN 81 MG ECTAB PO SCH (09:01)
[2024-07-25] MEDS: ATORVASTATIN 40 MG TAB PO SCH (09:01)
[2024-07-25] MEDS: ISOSORBIDE MONO EXTENDED REL 60 MG TABCR PO SCH (09:02)
[2024-07-25] MEDS: SPIRONOLACTONE 25 MG TAB PO SCH (09:02)
[2024-07-25] MEDS: MAGNESIUM SULFATE / D5W 1 GM/100 ML BAG IV ONE (10:57)
--- NOTE | 2024-07-25 11:19 | Palliative Care Consultation ---
Date of Consultation July 25, 2024 Assessment & Plan (1) Counseling regarding goals of care: (2) Cancer-related breakthrough pain: (3) Dyspnea on exertion: encourage smoking cessation, encourage IS (4) Palliative care by specialist: Plan In short: After lengthy family discussion with pt and her spouse Alon and daughter Selam at bedside, pt and family have agreed to proceed with current course of treatment with hopes to optimize her health prior to discharge back to home for life prolonging treatments with ongoing symptom management by cardiology and palliaitive services.. Pt requests DNR/DNI status. Details of GOC discussion below. Pt was awake and alert, oriented x4. Despite poor medical literacy, the Pt does possess current decisional capacity based on the ability to convey understanding of personal PMHx, current medical condition, treatment options nor the risks / benefits of those options, and lack of ability to make decisions based on such knowledge. Hospital does not have written documentation of patient wishes concerning her chosen proxy for medical decisions. Per PA [id number], in absence of written documentation of patient wishes, pt's proxy for medical decisions would be her spouse. Pt verbally expressed that she does want her spouse to be primary contact and primary proxy for medical decisions with her daughter Selam as backup proxy. Pt and family express dissatisfaction with care provided by [address] [place] [address]. Dtr shared that they have had a difficult time reaching the stock parts inspector and hospice team has been a no show for two in person appointments. Nadia expressed concern that when she called hospice they refused to come to the house to help the pt. Pt complained of severe dyspnea on exertion and a feeling that she cannot breathe and fear of dying at home. Nadia expressed concern that he medications supplied by hospice were "to help the pt " and she refused to give her medications for comfort "until she is ready to ". Discussed the role of hospice at home, and the need for a 24hr family product test engineer who is willing to give pt medications as needed for to provide comfort and allow for a natural . Discussed pt's goals and values. Pt shared that she values time at home over anything and does not wish to be in the hospital when she dies. She expressed understanding that "I don't have much time" because she "is dying from heart failure and cancer". She shared that her heart failure has only been managed palliatively and she would not accept any high risk surgical interventions. She also shared that she does not want any further cancer directed treatments. Discussed that her refusing any further cancer directed treatments as well as cardiac interventions while accepting symptom management therapies is fitting with the theory of hospice. Pt further stated that she would not want to spend her limited time in the hospital. Discussed options of returning home with continued hospice/comfort directed care (with different hospice organization) vs continuing life prolonging therapies including ongoing labs, diagnostics and continued decompensation 2/2 HFrEF requiring frequent admissions. Pt expressed feeling that she would do much better if she had CPAP at home. She shared that she is hesitant to return to hospice care because she wants the option to return to the hospital if she gets ill. Patient and her daughter expressed desire to return home with palliative care and cardiology service to help manage her symptoms. Plan will be to continue current hospitalization to optimize pt's current health with plan to discharge to home for continued life prolonging therapy with help of cardiology and outpt palliative care to help manage symptoms as pt's disease progresses. Pt. and her daughter both shared understanding that pt would likely benefit from hospice care services however they are not comfortable with hospice services at this time. Pt shared that she will continue to want to come to the ED if she "can't breathe and feel like I am dying again". Discussed code status. Pt again expressed desire to not ever be dependent on machines. She shared that she does not wish to ever be on a ventilator nor artificial feeds. We discussed that under her current status as full code, if she were to succumb to respiratory failure or cardiac arrest she would receive YOBANI/mechanical ventilation and CPR. Pt's spouse shared that the pt "has always said that she would not any of that". All family in agreement to DNR/DNI at this time. Discussed with BSRN, case managment, and attending MD. 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 She was just discharged home on 07/10 with acute on chronic respiratory failure requiring BiPAP, BiPAP was weaned to nasal cannula, she was given IV Bumex that resulted in hypotension, along with a course of oral antibiotics for possible pneumonia. She went home on hospice at this time. The patient was sent to ED by her son and , due to increasing lower extremity edema and gradually worsening dyspnea. EMS gave her 1 DuoNeb, 2 alb uterol treatments, and 125 IV Solu-Medrol. In the ED she was placed on BiPAP and given Nitropaste, Rocephin, 1 DuoNeb, Zofran, and 1 mg of Bumex IV which did provide relief. She was placed on BiPAP with 97 to 98%. In ED she c/o worsening chest pain since her previous discharge, She continues to smoke 2 packs of cigarettes per day. She only uses her home oxygen overnight. Family stated that they are unhappy with the hospice care and pt requested Full code on admission. Allergies Allergy/AdvReac Type Severity Reaction Status Date / Time latex Allergy Intermediate skin Verified 05/15/24 10:08 itching Influenza Virus Vaccines AdvReac Severe developed Verified 05/15/24 10:08 blood clots vaccine adjuvant system, AdvReac Severe blood clots Verified 05/15/24 10:08 AS01B liposomal [From Shingrix (PF)] varicella-zoster virus AdvReac Severe blood clots Verified 05/15/24 10:08 glycoprotein E, recombinant [From Shingrix (PF)] zolpidem [From Ambien] AdvReac Severe Hallucinati Verified 05/15/24 10:08 ng Home Medications Medication Instructions Recorded Confirmed Type levocetirizine 5 mg tablet (Xyzal) 5 mg PO DAILY PRN allergies 05/26/23 07/24/24 History Wheeled Walker #1 ea 06/16/23 05/15/24 Rx blood-glucose meter (Pediatric BioscienceTouch #1 ea 10/28/23 05/15/24 Rx Ultra2 Meter) lancets 33 gauge (OneTouch Delica #100 ea 10/28/23 05/15/24 Rx Plus Lancet) Hospital Bed Homecare #1 ea 11/04/23 05/15/24 Rx olanzapine 2.5 mg tablet 2.5 mg PO UD PRN Nausea And 11/04/23 07/24/24 History Vomiting WHEEL MOBILITY SCOOTER #1 ea 11/08/23 05/15/24 Rx Wheelchair (Manual) #1 ea 11/08/23 05/15/24 Rx transport chair #1 ea 11/10/23 05/15/24 Rx Magic Mouthwash 300 mL mouthwash 10 ml mucous membrane ACHS PRN 11/22/23 07/24/24 Rx dysphagia #300 mL blood sugar diagnostic (OneTouch #100 ea 12/27/23 05/15/24 Rx Ultra Test strips) prochlorperazine maleate 10 mg 10 mg PO DIRECTED PRN 12/28/23 07/24/24 History tablet NAUSEA/VOMITING albuterol sulfate 90 mcg/actuation 2 puff inhalation QID PRN 02/11/24 07/24/24 Rx aerosol inhaler shortness of breath or wheezing #6.7 grams budesonide 0.5 mg/2 mL suspension 0.5 mg (2 mL) NEB BID #60 doses 02/24/24 07/24/24 Rx for nebulization Emotional Support Animal #1 ea 03/31/24 05/15/24 Rx ondansetron HCl 4 mg tablet 4 mg PO QID PRN nausea and 06/05/24 07/24/24 Rx vomiting #120 tabs pregabalin 150 mg capsule (Lyrica) 150 mg PO TID #90 caps 06/15/24 07/24/24 Rx formoterol fumarate 20 mcg/2 mL 0 mcg inhalation BIDR 06/27/24 07/24/24 History solution for nebulization (Perforomist) umeclidinium 62.5 mcg/actuation 0 inh inhalation DAILY 06/27/24 07/24/24 History blister powder for inhalation (Incruse Ellipta) aspirin 81 mg tablet,delayed 81 mg PO QAM #30 tabs 06/29/24 07/24/24 Rx release atorvastatin 40 mg tablet 40 mg PO QAM #30 tabs 06/29/24 07/24/24 Rx bumetanide 1 mg tablet 1 mg PO BID #60 tabs 06/29/24 07/24/24 Rx isosorbide mononitrate 60 mg 60 mg PO QAM #30 tabs 06/29/24 07/24/24 Rx tablet,extended release 24 hr sacubitril 24 mg-valsartan 26 mg 1 tab PO BID #60 tabs 06/29/24 07/24/24 Rx tablet (Entresto) spironolactone 25 mg tablet 25 mg PO QAM #30 tabs 06/29/24 07/24/24 Rx oxycodone 5 mg tablet 10 mg (2 x 5 mg) PO Q6H PRN pain 07/10/24 07/24/24 Rx or breathlessness #30 tabs nitroglycerin 0.4 mg sublingual 0.4 mg sublingual Q5M PRN chest 07/19/24 07/24/24 Rx tablet pain #30 tabs apixaban 5 mg tablet (Eliquis) 0 mg PO BID 07/24/24 07/24/24 History fentanyl 50 mcg/hr transdermal 0 mcg transdermal Q72H 07/24/24 07/24/24 History patch lorazepam 1 mg tablet 1 mg PO TID PRN Signs/Symptoms 07/24/24 07/24/24 History Terminal Restlessness metoprolol succinate 50 mg 0 mg PO DAILY 07/24/24 07/24/24 History tablet,extended release 24 hr ranolazine 500 mg tablet,extended 0 mg PO BID 07/24/24 07/24/24 History release,12 hr Patient History Medical History Acute on chronic respiratory failure with hypoxia and hypercapnia Non-ST elevation HI (NSTEMI) Refusal of blood transfusions as patient is Cheondoism Lung cancer metastatic to brain Chronic respiratory failure Takotsubo cardiomyopathy history of Takotsubo cardiomyopathy per [place] [facility] Aneurysmal dilatation AAA, 3.4 cm History of COVID-19 07/2023 Lumbar disc herniation Peripheral neuropathy bilateral legs Hx of deep venous thrombosis years ago Anxiety Onychomycosis Hypotension still occurring occasionally Hypertensive urgency History of TIA (transient ischemic attack) 2018, no deficits History of myocardial infarction x 5 Surgical History History of cardiac cath x 5 stents,between 2014- 2017, done in [place] History of cholecystectomy History of section History of coronary artery stent placement Family History Mother Myocardial infarction Daughter Myocardial infarction Denies family history of Ovarian cancer Prostate cancer Breast cancer Colorectal cancer Social History Smoking Status: Current every day smoker Tobacco Type: Cigarettes Age Started Using Tobacco: 15; packs per day: 1; Cigarettes Per Day: half a pack; Second Hand Exposure: No; Do You Dip or Chew Tobacco: No; Hx Alcohol Use: No Hx Substance Use: No Preferred Language: Turkish Communication Ability: Effective Visual Impairment: No Limitations Plaster Die Maker Required: No Beliefs That Will Affect Care: Voodoo Voodoo Beliefs: Cheondoism marital status: Current Living Situation: Family Current Living Situation Comment: lives at home with . current occupational status: disabled How many Children do You have: 6 How many Children do You have Comment: 11 children, 6 biologic - 2 , son murdered in 2022 Other Information That Helps Us Care for You: No Feels Safe at Home: Yes Safety Concerns: Feels Safe At This Time Childhood Exposure to Second-Hand Smoke: Yes Diet: diabetic and regular caffeine: Yes (Coffee) Dental Care, Regularly: No Physical Activity Frequency: Daily Physical Activity Frequency Comment: Daily housework/activites Seatbelt Use: always Sunscreen Use: No Assistive Devices: Scooter/Electric Scooter and Walker Review of Systems 2 Constitutional: + malaise and + weakness Eyes: no problem reported Respiratory: + cough, + chest congestion, + dyspnea a nd + dyspnea on exertion Cardiovascular: + dyspnea, + dyspnea at rest, + orthopne a, + palpitations and + edema; no chest pain Gastrointestinal: + early satiety; no nausea, no vomiting and no constipation Musculoskeletal: generalized weakness Neurologic: + generalized weakness Physical Exam Physical Exam: Gen.: No acute distress. Alert. Oriented. HEENT: Anicteric sclera. Neck: No obvious JVD. Cardiac: Regular. Normal S1-S2. mild edema to BLE. Pulmonary: Decreased breath sounds throughout Abdomen: Soft, nontender, nondistended, with normoactive bowel sounds. No bruits noted. Skin: no rashes, warm and dry pale Neurologic: PERRL, EOMI, accommodation nl, no face palsy, no dysarthria Results & Data Vital Signs (Past 12 Hours) Vital Signs Temp Pulse Resp BP Pulse Ox O2 Del Method O2 Flow Rate 07/25/24 11:10 36.4 C L 64 17 100/66 93 Nasal Cannula 2 07/25/24 07:53 36.4 C L 64 18 98/65 L 95 Room Air 07/25/24 07:45 Nasal Cannula 2 07/25/24 03:00 36.5 C 78 18 99/68 L 95 Nasal Cannula 2 Laboratory Results Abnormal lab results 07/24/24 07/24/24 07/24/24 Range/Units 12:31 14:33 14:45 RBC (4.20-5.40) M/uL RDW Std Deviation (36.4-46.3) fL RDW Coeff of Chanel (11.5-14.5) % Neut # (Auto) (1.40-6.50) K/uL Lymph # (Auto) (1.20-3.40) K/uL Sodium (136-145) mmol/L Chloride (98-107) mmol/L Carbon Dioxide (21-32) mmol/L BUN (6-23) mg/dl BUN/Creatinine Ratio (10-20) Glucose (70-99(Fasting)) mg/dl POC Glucose 269 H (70-99) mg/dl Troponin I High Sens 1006.5 H* D (0-14) pg/ml Ur Leukocyte Esterase Trace H (Negative) 07/24/24 07/24/24 07/24/24 Range/Units 15:51 17:37 19:52 RBC (4.20-5.40) M/uL RDW Std Deviation (36.4-46.3) fL RDW Coeff of Chanel (11.5-14.5) % Neut # (Auto) (1.40-6.50) K/uL Lymph # (Auto) (1.20-3.40) K/uL Sodium (136-145) mmol/L Chloride (98-107) mmol/L Carbon Dioxide (21-32) mmol/L BUN (6-23) mg/dl BUN/Creatinine Ratio (10-20) Glucose (70-99(Fasting)) mg/dl POC Glucose 273 H 251 H (70-99) mg/dl Troponin I High Sens 1720.5 H* D (0-14) pg/ml Ur Leukocyte Esterase (Negative) 07/24/24 07/25/24 07/25/24 Range/Units 23:40 06:23 06:33 RBC 4.09 L (4.20-5.40) M/uL RDW Std Deviation 51.4 H (36.4-46.3) fL RDW Coeff of Chanel 15.7 H (11.5-14.5) % Neut # (Auto) 8.58 H (1.40-6.50) K/uL Lymph # (Auto) 0.57 L (1.20-3.40) K/uL Sodium 132 L (136-145) mmol/L Chloride 90 L (98-107) mmol/L Carbon Dioxide 33 H (21-32) mmol/L BUN 27 H (6-23) mg/dl BUN/Creatinine Ratio 31.0 H (10-20) Glucose 136 H (70-99(Fasting)) mg/dl POC Glucose (70-99) mg/dl Troponin I High Sens 1625.1 H* 1416.2 H* (0-14) pg/ml Ur Leukocyte Esterase (Negative) 07/25/24 Range/Units 07:29 RBC (4.20-5.40) M/uL RDW Std Deviation (36.4-46.3) fL RDW Coeff of Chanel (11.5-14.5) % Neut # (Auto) (1.40-6.50) K/uL Lymph # (Auto) (1.20-3.40) K/uL Sodium (136-145) mmol/L Chloride (98-107) mmol/L Carbon Dioxide (21-32) mmol/L BUN (6-23) mg/dl BUN/Creatinine Ratio (10-20) Glucose (70-99(Fasting)) mg/dl POC Glucose 154 H (70-99) mg/dl Troponin I High Sens (0-14) pg/ml Ur Leukocyte Esterase (Negative) Diagnostic Findings Chest X-Ray 07/24/24 09:16 XR chest 1V portable HISTORY: 64 years-old Female spb acute shortness of breath COMPARISON: Chest CT 07/09/2024 TECHNIQUE: AP view the chest FINDINGS: Cardiac silhouette is enlarged. Emphysema with bilateral mixed interstitial and alveolar opacities redemonstrated, progressed from prior. Small pleural effusions. Bones appear grossly intact. IMPRESSION: 1. Cardiomegaly with progressive mixed interstitial and alveolar disease . 2. Small pleural effusions. ACT 112: Negative or not required by law. The above report was generated using voice recognition software. It may contain grammatical, syntax or spelling errors. Electronically signed by: Garret Bowles M.D. 07/24/2024 9:50 AM Medications Administered Current Inpatient Medications Acetaminophen (Acetaminophen 325 Mg Tab) 650 mg PO Q4H PRN PRN Reason: Pain or Fever Stop: 08/23/24 12:24 Albuterol (Albuterol Hfa 8 Gm Inhaler) 2 puffs INH QID PRN PRN Reason: shortness of breath or wheezing Stop: 08/23/24 12:24 Albuterol (Albut/Ipratrop 3mg/0.5mg Neb 3 Ml Vial) 3 ml NEB Q6R PRN; Protocol PRN Reason: Shortness Of Breath Or Wheezing Stop: 08/23/24 12:24 Apixaban (Apixaban 5 Mg Tablet) 5 mg PO BID [facility] Stop: 08/23/24 20:59 Last Admin: 07/25/24 09:00 Dose: 5 mg Aspirin (Aspirin 81 Mg Ectab) 81 mg PO QAM [facility] Stop: 08/24/24 08:59 Last Admin: 07/25/24 09:01 Dose: 81 mg Atorvastatin Calcium (Atorvastatin 40 Mg Tab) 40 mg PO QAM [facility] Stop: 08/24/24 08:59 Last Admin: 07/25/24 09:01 Dose: 40 mg Cetirizine HCl (Cetirizine Hcl 10 Mg Tablet) 10 mg PO DAILY PRN PRN Reason: Allergies Stop: 08/23/24 12:42 Dextrose (Dextrose 50% 50 Ml Syringe) 25 - 50 ml IV UD PRN; Protocol PRN Reason: Hypoglycemia Protocol Stop: 08/23/24 12:07 Docusate Sodium (Docusate Sodium 100 Mg Cap) 100 mg PO BID PRN PRN Reason: Constipation Stop: 08/23/24 12:24 Fentanyl (Fentanyl 75 Mcg/Hr Tdsy) 1 patch TD Q72H [facility] Stop: 08/09/24 08:59 Formoterol Fumarate (Formoterol 20 Mcg/2 Ml Vial) 20 mcg INH BIDR [facility] Stop: 08/23/24 18:59 Last Admin: 07/25/24 07:26 Dose: Not Given Glucagon (Glucagon For Inj 1 Mg Vial) 1 mg SQ UD PRN; Protocol PRN Reason: Hypoglycemia Protocol Stop: 08/23/24 12:07 Glucose (Glucose 40% Gel 15 Gm Tube) 15 - 30 gm PO UD PRN; Protocol PRN Reason: Hypoglycemia Protocol Stop: 08/23/24 12:07 Glucose (Glucose 10 Tab/Tube) 4 - 8 tab PO UD PRN; Protocol PRN Reason: Hypoglycemia Protocol Stop: 08/23/24 12:07 Bumetanide 2 mg/ Syringe 8 mls @ 4 mls/min IV BID@0900,1700 [facility] Stop: 08/23/24 16:59 Last Admin: 07/25/24 09:06 Dose: 4 mls/min Magnesium Sulfate/Dextrose (Magnesium Sulfate / D5w) 1 gm in 100 mls @ 50 mls/hr IV ONE ONE Stop: 07/25/24 11:21 Last Admin: 07/25/24 10:57 Dose: 50 mls/hr Insulin Aspart (Insulin Aspart Per Unit Charge) 0 units SC ACHS [facility] Stop: 08/23/24 16:29 Last Admin: 07/25/24 08:58 Dose: 1 units Isosorbide Mononitrate (Isosorbide [place] Extended Rel 60 Mg Tabcr) 120 mg PO QAM [facility] Stop: 08/24/24 08:59 Last Admin: 07/25/24 09:02 Dose: Not Given Lorazepam (Lorazepam 1 Mg Tab) 1 mg PO TID PRN PRN Reason: Signs/Symptoms Terminal Restlessness Stop: 08/23/24 12:24 Last Admin: 07/25/24 00:04 Dose: 1 mg Magnesium Oxide (Magnesium Oxide 400 Mg Tab) 400 mg PO QAM [facility] Stop: 08/24/24 08:59 Last Admin: 07/25/24 09:00 Dose: 400 mg Metoprolol Succinate (Metoprolol Succ 50mg Ext Rel Tab) 50 mg PO DAILY [facility] Stop: 08/24/24 08:59 Last Admin: 07/25/24 08:59 Dose: Not Given Miscellaneous (Carbohydrates For Hypoglycemia ) 15 - 30 gm PO UD PRN PRN Reason: Hypoglycemia Protocol Stop: 08/23/24 12:07 Miscellaneous (Fentanyl Patch Remove & Waste) 1 each N/A Q3D [facility] Stop: 08/25/24 08:58 Miscellaneous (Check Fentanyl Patch Placement) 1 each N/A QS [facility] Stop: 08/23/24 15:59 Last Admin: 07/25/24 08:58 Dose: 1 each Multi-Ingredient Mouthwash/Gargle (First - Mouthwash Blm 5 Ml Udp) 5 ml PO ACHS PRN PRN Reason: dysphagia Stop: 08/23/24 12:43 Ondansetron HCl (Ondansetron Inj 2 Mg/Ml 2 Ml Vial) 4 mg IV Q6H PRN PRN Reason: Nausea And Vomiting Stop: 08/23/24 12:24 Oxycodone HCl (Oxycodone Hcl Ir 5 Mg Tab (Immediate Release)) 10 mg PO Q6H PRN PRN Reason: pain or breathlessness Stop: 08/07/24 12:24 Last Admin: 07/25/24 06:49 Dose: 10 mg Pregabalin (Pregabalin 150 Mg Cap) 150 mg PO TID [facility] Stop: 08/23/24 13:59 Last Admin: 07/25/24 09:06 Dose: 150 mg Ranolazine (Ranolazine 500 Mg Er Tab) 500 mg PO BID [facility] Stop: 08/23/24 20:59 Last Admin: 07/25/24 09:01 Dose: 500 mg Sacubitril/Valsartan (Valsartan/Sacubitril 26/24mg Tab) 1 tab PO BID [facility] Stop: 08/23/24 20:59 Last Admin: 07/25/24 09:01 Dose: 1 tab Spironolactone (Spironolactone 25 Mg Tab) 25 mg PO QAM [facility] Stop: 08/24/24 08:59 Last Admin: 07/25/24 09:02 Dose: 25 mg Umeclidinium [place] (Umeclidinium [place] 62.5mcg/Blister 7 Puffs/Inhaler) 1 puffs INH DAILY [facility] Stop: 08/24/24 08:59 PG Care Time/CCT Total # of Minutes Spent Total Time Spent with Patient: Total time spent is greater than 50% in coordination of care (as documented) at patient's floor/unit and/or counseling patient: Advanced Care Planning 05341 Advanced Care Planning 30 [place] [address] IN/OBS CONSULT LVL 4,60M Patient Type New History Expanded Problem Focused Exam Expanded Problem Focused Medical Decision Making Moderate Complexity Diagnoses Counseling regarding goals of care Z71.89 Cancer-related breakthrough pain G89.3 Dyspnea on exertion R06.09 Palliative care by specialist Z51.5 Additional Codes Advanced Care Planning - 85848 Advanced Care Planning 30 Min: [id number] Advanced Care Planning 30 Min ([id number])
[2024-07-25] MEDS: HYDROmorphone HCL 2 MG TAB PO STA (11:21)
[2024-07-25] MEDS: ONDANSETRON INJ 2 MG/ML 2 ML VIAL IV PRN (11:29)
[2024-07-25] MEDS: UMECLIDINIUM BROMIDE 62.5MCG/BLISTER 7 PUFFS/INHALER INH SCH (11:46)
[2024-07-25] MEDS: ACETAMINOPHEN 325 MG TAB PO PRN (14:40)
[2024-07-25] MEDS: NITROGLYCERIN SL 0.4 MG/TAB TAB ONE (17:06)
--- NOTE | 2024-07-25 17:27 | Hospitalist Progress Note ---
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 CXR showing cardiomegaly with mixed disease along with small pleural effusions, appears improved from XR 07/09 On admission w/ leukocytosis , Afebrile, biofire negative . Patient continues to smoke cigarettes at home - 2 pack/day Now improving-weaned to room air at rest during day Continue IV diuresis No PNA-was just treated for PNA with Augmentin 2 weeks ago- blood cultures pending-will follow Continue DuoNeb prn Q6H , Albuterol HFA prn Continue home Perforomist and Incruse Ellipta (2) Acute HFrEF (heart failure with reduced ejection fraction): Plan: Acute on chronic HFrEF- patient with worsening dyspnea and bilateral lower extremity edema stated she has been compliant on home Bumex 1mg PO BID but is not really following a fluid or sodium restriction as she had been on hospice History of ischemic cardiomyopathy - CAD s/p 5 stents, with last being in 2017 Last echocardiogram on 06/27/24 with EF 30 to 35%, severe hypokinesis to akinesis of inferior and inferior lateral irizarry, as well as moderate to severe aortic stenosis With recent NSTEMI in with cardiac cath showing severe multivessel disease, including 95% left main disease-not a candidate for CABG BNP 1681 on admission Continue Heart healthy, low-sodium diet, and fluid restriction, daily weight Continue diuresis with 2mg Bumex IV bid but hold evening dose for hypotension associated with nitroglycerin use Continue Entresto, spironolactone, and metoprolol Check daily BMP and Mg with diuretic use (3) Elevated troponin: Plan: history of CAD and NSTEMI, has been having angina relieved with nitroglycerin 3x/day at home Here with chest pain and ECG changes on 07/25. Had cardiac cath last admission which showed severe multivessel dz including 95% left main stenosis Is a high risk cardiac stenting candidate and she is not a CABG candidate given met lung CA Troponin here peaked at 1700 but given new chest pain, will further trend troponins, follow ECG Resume nitropaste, continue higher dose isosorbide Continue ASA, Eliquis, atorvastatin, metoprolol, and increase dose of ranolazine to 1000mg po bid for angina No need for heparin gtt as she is anticoagulated with Eliquis and does not desire further cardiac cath Consult Cardiology placed (4) CAD (coronary artery disease): Plan: Has a h/o 5 stents in heart continue meds as above (5) Acute hyponatremia: Plan: 129 on admission suspect secondary to volume overload Improving now with diuresis, up to 132 COntinue diuresing Trend BMP (6) Leukocytosis: Plan: suspect secondary to stress -now normalized Afebrile, WBC 13.26 on admission follow blood cultures-NGTD Trend CBC in AM (7) Hyperglycemia due to type 2 diabetes mellitus: Plan: recently discontinued metformin as was transition to hospice care during previous admissions Most recent A1C 5.5 on 05/08 hyperglycemic on admission, glucose 312 Continue loose SSI with target BSG range 110-160mg/dL, CF 30 T2DM diet Plan Chronic stable diagnoses: Paroxysmal a fib - remains in NSR, continue Eliquis and metoprolol 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 ECG with significant ST depressions in lateral leads and possible inferior acute [place]. SHe was given nitro SL and had significant relief. A repeat ECG showed great improvement in ischemic changes once pain free. Otherwise, she feels her leg swelling is much improved. Tele with NSR rates 60-80s I discussed her care with Palliative Physical Exam Constitutional: well developed Respiratory: normal respiratory effort Auscultation: + crackles (bibasilar); no rhonchi and no wheezes Cardiovascular: Rate/Rhythm: regular rate and regular rhythm Heart Sounds: + murmur (3/6 ORALIA at the RUSB) Extremities: + edema (trace edema legs bilat- much improved from previous) Gastrointestinal (Abdomen): normal bowel sounds, soft, nontender, no hepatosplenomegaly Psychiatric: A+Ox3, euthymic affect Results & Data Results & Data Vital Signs (Past 12 Hours) Vital Signs Temp Pulse Pulse Resp BP Pulse Ox O2 Del Method 07/25/24 17:18 99/63 L 07/25/24 17:05 36.3 C L 85 20 103/65 94 Nasal Cannula 07/25/24 16:03 36.4 C L 65 24 106/66 93 Nasal Cannula 07/25/24 15:38 62 07/25/24 12:00 75 07/25/24 11:10 36.4 C L 64 17 100/66 93 Nasal Cannula 07/25/24 07:53 36.4 C L 64 18 98/65 L 95 Room Air 07/25/24 07:45 Nasal Cannula O2 Flow Rate 07/25/24 17:18 07/25/24 17:05 2 07/25/24 16:03 3 07/25/24 15:38 07/25/24 12:00 07/25/24 11:10 2 07/25/24 07:53 07/25/24 07:45 2 Laboratory Results CBC, BMP, mag, troponin, blood cxs reviewed PG Care Time/CCT Total # of Minutes Spent Total Time Spent with Patient: Total time spent is greater than 50% in coordination of care (as documented) at patient's floor/unit and/or counseling patient: Coding Level of Care Code 93979 SUB INP/OBS CARE 3/50MIN Diagnoses Acute on chronic hypoxic respiratory failure J96.21 Acute HFrEF (heart failure with reduced ejection fraction) I50.21 Elevated troponin R79.89 CAD (coronary artery disease) I25.10 Acute hyponatremia E87.1 Leukocytosis D72.829 Hyperglycemia due to type 2 diabetes mellitus E11.65
[2024-07-25] MEDS: NITROGLYCERIN SL 0.4 MG/TAB TAB SL STA (17:29)
[2024-07-25] MEDS: NITROGLYCERIN 2% OINTMENT 30GM TUBE EXT SCH (18:17)
[2024-07-25] MEDS ORDERED: COUGH DROP (SUGAR FREE) LOZ 24 LOZ/1 BOX BUCCAL PRN (19:16)
[2024-07-25] MEDS: NITROGLYCERIN SL 0.4 MG/TAB TAB SL PRN (20:56)
[2024-07-25] MEDS: RANOLAZINE 500 MG ER TAB PO SCH (20:57)
[2024-07-26 07:53] LABS: BUN Creatinine Ratio 30.6 (10-20); Calcium 9.4 mg/dl (8.6-10.3); Creatinine Clr Calc Pharmacy 48.5 ml/min; Potassium 4.1 mmol/L (3.5-5.1)
[2024-07-26 08:09] LABS: Basophils # (auto) 0.03 K/uL (0.00-0.20); Basophils % (auto) 0.5 %; Eosinophils # (auto) 0.06 K/uL (0.00-0.50); Hematocrit (blood only) 34.4 % (37.0-47.0); Hemoglobin 11.4 g/dl (12.0-16.0); Immature Granulocytes # (auto) 0.07 K/uL (0.01-0.20); Immature Granulocytes % (auto) 1.1 %; Lymphocytes # (auto) 1.09 K/uL (1.20-3.40); Lymphocytes % (auto) 17.8 %; Mean Corpuscular Hemoglobin 30.8 pg (25.0-34.0); Mean Corpuscular Hgb Conc 33.1 g/dL (32.0-36.0); Mean Platelet Volume 10.3 fL (9.4-12.4); Monocytes # (auto) 0.53 K/uL (0.11-0.59); Monocytes % (auto) 8.6 %; Neutrophils # (auto) 4.36 K/uL (1.40-6.50); Platelet Count 225 K/uL (130-400); RDW Coefficient of Variation 16.2 % (11.5-14.5); RDW Standard Deviation 54.9 fL (36.4-46.3); White Blood Count 6.14 K/ul (4.8-10.8)
[2024-07-26] MEDS: fentaNYL 75 MCG/HR TDSY TD SCH (08:13)
[2024-07-26] MEDS: HYDROmorphone HCL 2 MG TAB PO STA (10:45)
--- NOTE | 2024-07-26 10:55 | Palliative Family Discussion ---
Date of Service July 26, 2024 Patient Directed Conference Time of Meetin:00 -10:40 Participants: ShilaPam Trujillo AGACNP Patient participation: YES Patient Support System: Pt spouse and son Other Healthcare Provider Participation: cardiology Meeting Location: at bedside Advanced Directive available: No If yes, descriptors: The patient's surrogate medical decision maker participated: spouse and son Legally authorized health care proxy: Pt does possess current decisional capacity based on the ability to convey understanding of personal PMHx, current medical condition, treatment options nor the risks / benefits of those options, and lack of ability to make decisions based on such knowledge. Hospital does not have written documentation of patient wishes concerning her chosen proxy for medical decisions. Per PA [id number], in absence of written documentation of patient wishes, pt's proxy for medical decisions would be her spouse. Pt verbally expressed that she does want her spouse to be primary contact and primary proxy for medical decisions with her daughter Selam as backup proxy. Other surrogate: n/a A [facility] meeting was held for SEAN GOLDM[facility]. This meeting was necessary for determining the appropriate course of treatment. Topics of Discussion Topics of Discussion: 1. expected progression of end stage HF 2. goals of care 3. hospice 4. anticipatory guidance / Stages of dying Other Content of Meetin. Opportunity given for participants to speak and ask questions. 2. Participants were assured of attention to patient comfort. 3. Reassurance provided. 4. Support was provided for informed, good-arcelia decisions. 5. Emotions expressed by family were acknowledged and addressed. 6. Follow-up Outpatient: n/a 7. Plan of Care: home with hospice Along with Dr. Lizama (cardiology), met with patient at bedside, no family present at the time. Dr. Lizama, helped pt to understand that given the advanced stage of her heart disease any invasive procedures would be extremely high risk and likely cause more harm than help. Pt shared that she is not comfortable with the risk of dying during any procedure and understand that she is "dying anyway, but don't want to on the table". We discussed the expected progression of her disease process. Helped her understand that at this point, any treatment options would be strictly palliative in nature. Pt expressed understanding that there are no treatments available that would cure her disease nor significantly prolong her life. She shared that she wants to go home and not suffer anymore. Discussed need for Heart Failure GDMT and comfort directed therapies in order to minimize her symptom burden and ensure for comfort and dignity while allowing for a natural . Patient shared that she would like to go home with hospice care but requests a different hospice organization. Shared with pt that [facility] reports having received calls from her residence cancelling their scheduled visits. Patient shared that would have been her son calling them because he is not in agreement with her having hospice care. She shred that her son has placed her hospice medications in a locked box he calls "the box". Patient shared that her son and daughter are holding those medications until she is actually dying. We discussed that the medications that hospice has supplied are the same medications she is receiving for comfort here, and are not intended to hasten , but to assure her comfort as we are here. Pt verbalized understanding of this and reinforced her wish to be at home with her comfort managed as it is being in the hospital. At this point Dr. Lizama politely excused himself from room. Continued conversation a short while later with pt's son and spouse present. Pt shared details of earlier talk with the family and helped them understand that her desire is to return home with hospice and spend the remainder of what time she has left at home with family and not to return to the hospital again. She shared that she knows she is dying soon and most importantly does not want to in the hospital. Helped family understand that all the medications given at home with hospice care will be directed at easing her dyspnea, pain or other discomfort. Offered anticipatory guidance on stages of dying and encouraged that whomever will be the pt's caretakers at home should be at house to meet with the hospice team for instruction on medications. Discussed changes pt may move through in the dying process including but not limited to sleeping more, disorientation when awake, restlessness, diminished senses/inability to respond to stimulus although ability to be aware of them remains intact longer, and changes in body temperatures, skin changes/mottling/cyanosis, respiratory pattern changes, and oral secretions. Family verbalized understanding. The goal is to assure a peaceful . Attempt made to contact pt's daughter Selam via phone to give update, no answer, no VM capability. Time Involved in Meeting: I spent 85 minutes overall addressing this case: 15 in medical data review/discussion with referring provider(s) and/or preparation for the visit 40 in direct interaction with the patient [] 30 Advance Care Planning/Goals of Care discussions as detailed above in note (must be >16min) 15 in subsequent review and synthesis of assessment and plan 15 in communicating with other providers regarding the patient's case: Dr Estrella (attdg), BSRN, case management
--- NOTE | 2024-07-26 11:57 | Hospitalist Progress Note ---
Date of Service July 26, 2024 Assessment & Plan (1) Comfort measures only status: Plan: With refractory angina, severe CAD, acute on chronic HFrEF with respiratory failure, severe , and now hypotension secondary to cardiogenic shock vs nitrates/opioids/CHF meds, all in setting of lung CA with mets to brain with chronic pain issues---> transition to RN MOBILE on 07/26 as per multiple discussions with patient, family members including , son, and daughter. Stop all po meds as she is very lethargic Stop any further IVFs for hypotension No further lab draws or glucose checks Start IV dilaudid 1mg IV q2h prn SOB or pain, continue Fentanyl patch 75 Start IV ativan 0.5mg IV prn anxiety Start RObinul prn secretions O2 for comfort Can place [place] if desired for comfort Will likely pass away in hospital within 2-3 days (2) Acute HFrEF (heart failure with reduced ejection fraction): Plan: Acute on chronic HFrEF- patient with worsening dyspnea and bilateral lower extremity edema stated she has been compliant on home Bumex 1mg PO BID but is not really following a fluid or sodium restriction as she had been on hospice Daughter reports pt wasn't actually taking the Bumex because it made her urinate too much History of ischemic cardiomyopathy - CAD s/p 5 stents, with last being in 2017 Last echocardiogram on 06/27/24 with EF 30 to 35%, severe hypokinesis to akinesis of inferior and inferior lateral irizarry, as well as moderate to severe aortic stenosis With recent NSTEMI in with cardiac cath showing severe multivessel disease, including 95% left main disease-not a candidate for CABG BNP 1681 on admission Received diuresis with 2mg Bumex IV bid and diuresed wuite a bit. 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 CXR showing cardiomegaly with mixed disease along with small pleural effusions, appears improved from XR 07/09 On admission w/ leukocytosis , Afebrile, biofire negative . Patient continues to smoke cigarettes at home - 2 pack/day Weaned to room air after diuresis No PNA-was just treated for PNA with Augmentin 2 weeks ago- blood cultures pending-will follow Continue DuoNeb prn Q6 prn but pursuing RN MOBILE now-dc maintenance inhalers (4) Elevated troponin: Plan: Likely Type II OH due to acute on chronic systolic CHF and acute on chronic hypoxic respiratory failure history of CAD and NSTEMI, has been having angina relieved with nitroglycerin 3x/day at home Here with chest pain and ECG changes on 07/25. Had cardiac cath last admission which showed severe multivessel dz including 95% left main stenosis Is a high risk cardiac stenting candidate and she is not a CABG candidate given met lung CA Troponin here peaked at 1700, but pt continued to have ongoing angina requiring nitrates and subsequent hypotension Nitrates stopped and was given back some IVFs on 07/26 for profound hypotension BP 50-60 systolic-combo of Entresto, metoprolol, opioids for pain, previous nitrates, isosorbide, and previous diuresis. Now on RN MOBILE (5) CAD (coronary artery disease): Plan: Has a h/o 5 stents in heart and severe left main disease, not CABG candidate (6) Acute hyponatremia: Plan: 129 on admission suspect secondary to volume overload Improved with diuresis, up to 132 no further lab draws on RN MOBILE (7) Hyperglycemia due to type 2 diabetes mellitus: Plan: recently discontinued metformin as was transition to hospice care during previous admissions Most recent A1C 5.5 on 05/08 hyperglycemic on admission, glucose 312 on RN MOBILE, stop glucose checks and insulin Plan Chronic stable diagnoses: Paroxysmal a fib - remains in NSR, dc Eliquis and metoprolol on RN MOBILE 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 Appreciate Palliative Med and Cardiology consults. Admission and Anticipated Discharge Date Admission Date: July 24, 2024 Subjective Pt seen on two occasions today. Seen in AM and was lethargic but having low BP at 60s systolic. She had been given po dilaudid about an hour before that after long discussion with Palliative and family with decision to pursue hospice again. Her nitropaste was discontinued due to the hypotension and she was given a small bolus of NS and BP improved somewhat. Discussed her care with her and son at bedside and her daughter on the phone. Then, in mid afternoon, RN informed me pt had a BP of 50 systolic and was unresponsive. I came to the bedside and she was occasionally moaning to verbal and tactile stimulus. A small bolus was given again of NS and I discussed her care with son, , and daughter all at bedside. said he wanted her to not have pain anymore and we came to mutual decision to pursue RN MOBILE, stop fluids as these would likely lead to worsening pulm edema and SOB, and stop all meds except those strictly for comfort. I discussed her care at length with Cardiology and Palliative Med Physical Exam Constitutional: + ill appearing and + lethargic; no acut e distress Respiratory: Auscultation: + crackles (bibasilar); no rhonchi and no wheezes Cardiovascular: Rate/Rhythm: regular rate and regular rhythm Heart Sounds: + murmur (3/6 ORALIA at the RUSB) Extremities: + edema (trace edema legs bilat) Gastrointestinal (Abdomen): normal bowel sounds, soft, nontender, no hepatosplenomegaly Psychiatric: Orientation: + not alert Results & Data Results & Data Vital Signs (Past 12 Hours) Vital Signs Temp Pulse Pulse Resp BP BP Pulse Ox 07/26/24 11:31 61 16 65/42 L 64/37 L 96 07/26/24 07:41 36.8 C 85 18 101/59 L 97 07/26/24 07:27 07/26/24 07:20 68 20 92 07/26/24 07:15 66 07/26/24 06:25 92/56 L 07/26/24 06:13 136/87 07/26/24 04:03 129/88 07/26/24 03:53 36.7 C 68 18 85/60 L 92 07/26/24 01:54 126/91 07/26/24 00:25 87/56 L O2 Del Method O2 Flow Rate 07/26/24 11:31 Nasal Cannula 2 07/26/24 07:41 Room Air 07/26/24 07:27 Nasal Cannula 2 07/26/24 07:20 Room Air 07/26/24 07:15 07/26/24 06:25 07/26/24 06:13 07/26/24 04:03 07/26/24 03:53 Nasal Cannula 2 07/26/24 01:54 07/26/24 00:25 Laboratory Results CBC, BMP, magnesium, troponin reviewed PG Care Time/CCT Total # of Minutes Spent Total Time Spent with Patient: Total time spent is greater than 50% in coordination of care (as documented) at patient's floor/unit and/or counseling patient: Coding Level of Care Code 12682 SUB INP/OBS CARE 3/50MIN Diagnoses Comfort measures only status Z51.5 Acute HFrEF (heart failure with reduced ejection fraction) I50.21 Acute on chronic hypoxic respiratory failure J96.21 Elevated troponin R79.89 CAD (coronary artery disease) I25.10 Acute hyponatremia E87.1 Hyperglycemia due to type 2 diabetes mellitus E11.65
--- NOTE | 2024-07-26 15:04 | Cardiology Consultation ---
Date of Consultation July 26, 2024 Assessment & Plan (1) Non-ST elevation ME (NSTEMI): (2) CAD (coronary artery disease): (3) Aortic stenosis: (4) Acute HFrEF (heart failure with reduced ejection fraction): (5) Paroxysmal atrial fibrillation: (6) Acute on chronic hypoxic respiratory failure: (7) Cardiomyopathy: Plan ASSESSMENT/PLAN: 1. Severe multivessel CAD (prior PCI)/NSTEMI: She has severe multivessel CAD including left main and subtotaled RCA with [id number] collaterals, and ostial circumflex CAD. She has declined CT surgery evaluation and given her other comorbidities, is not an ideal candidate for CABG. PCI would be very high risk. These options and medical therapy were once again discussed with her today. She was very clear that she would like to pursue medical therapy with the goal of improving quality of life while also continuing with hospice care. Continue antianginals for quality of life improvement, including ranolazine and beta-brianna. Can replace isosorbide mononitrate with low-dose nitroglycerin patch. 2. Acute on chronic heart failure with reduced EF: She did not appear to be significantly hypervolemic today. Can continue diuretic for quality of life improvement to try to maintain euvolemia. Low-sodium diet. GDMT with goal of improving quality of life. 3. Aortic stenosis: Moderate to severe. She has not wanted to pursue aggressive measures from a surgical standpoint and with her multiple comorbidities, is not an ideal candidate. 4. Paroxysmal atrial fibrillation: Sinus rhythm today. Can continue anticoagulation for stroke risk reduction unless she would like to pursue comfort measures only. Continue beta-brianna. 5. Metastatic small cell lung cancer: Diagnosed in October 2023. Has followed with oncology. 6. Acute on chronic hypoxic respiratory failure: Supportive measures per primary hospitalist service. BiPAP has been transition to nasal cannula. 7. Disposition: Very poor prognosis. Had a meaningful discussion with patient with palliative care provider at the bedside. Ms. Santos was very clear that she would like to continue with hospice with a goal of improved quality of life. She does not want to be in pain or have difficulty breathing. We can continue to use heart failure medical therapy to improve quality of life as well. She requested that I stop by later today to meet with her and family. Addendum: I represented to the bedside this afternoon. Due to significant hypotension and reported lethargy, she received IV fluid bolus as per primary hospitalist service. Dr. Estrella reports that family has chosen to pursue comfort measures. Family was at the bedside. Ms. Santos was awake and talking. Offered any assistance and excuse myself so that family could spend time together. Plan of care have been discussed both with Norma Trujillo of palliative care and Dr. Estrella of the primary hospitalist service. Highly complex medical issues. History of Present Illness Reason for Consultation: "NSTEMI, severe CAD" Requesting Physician: Juanita Estrella MD Attending Physician: Juanita Estrella MD History of Present Illness Mrs. Santos is a pleasant 64-year-old female with a history significant for severe multivessel CAD s/p multiple PCI (4 or 5 in [id number]), ischemic cardiomyopathy, significant aortic stenosis, metastatic small cell carcinoma of the left lower lobe to the brain, paroxysmal atrial fibrillation, COPD on supplemental home oxygen, Takotsubo cardiomyopathy 2018, TIA, chronic respiratory failure, recurrent DVT, hypertension, diabetes, hypothyroidism. Her primary accounting manager cpa is Dr. Andrade. She has had the following studies/procedures: 1. Multiple PCI in [id number] at outside facility. 2. Echo 06/27/2024 [facility]: Normal LV size. EF 30-35%. Severe hypokinesis to akinesis of the inferior and inferolateral wall. Otherwise global hypokinesis. Moderate LVH. Normal RV size and systolic function. Moderate left atrial dilation. Moderate to severe aortic stenosis however Doppler evaluation may underestimate severity given reduced LV systolic function. (PV 3.5; MG 28; DAVIS 1; DI 0.27). Mild MR. 3. Cardiac cath 06/28/2024 [facility]: LM 95%. Ostial LAD 30%. Early mid LAD 50 to 60% and diffuse 40 to 50%. Mid LAD stent patent. Mid LAD 50% just distal to mid LAD stent. Large D1 ostial 70 to 80%. Ostial/proximal circumflex 98%. Distal circumflex 40%. OM1 mid 50 to 60%. Dominant RCA. Early mid RCA 10%. Mid RCA stent with subtotal occlusion in-stent restenosis. TOYA I flow. PDA and PL fill via left to right collaterals. She was hospitalized on 06/27/2024 with NSTEMI and acute heart failure with reduced EF. LV systolic function significantly reduced at that time. High- sensitivity troponin peaked at 2950 and she required BiPAP initially. She underwent cardiac catheterization which demonstrated severe multivessel CAD. She was not found to be an optimal surgical candidate, if a candidate at all given her other comorbidities, and she did not want to pursue CT surgery evaluation for an opinion. Medical therapy was agreed upon. She was set up for hospice at home and has since been readmitted on 07/09/2024 and again on 07/24/2024. For this hospital stay, she initially stated that she did not want to reenroll in hospice initially. She came to the hospital for recurrent chest discomfort. She states that she has substernal chest pressure consistent with prior angina roughly every 4 hours at rest. She takes nitroglycerin with relief. She has associated shortness of breath and nausea. She once again required BiPAP on presentation on 07/24/2024. She had edema which she states is improving. She was chest pain-free during initial visit this morning. She states that she maintains a low-sodium diet. She has been smoking 2 packs/day but quit cigarettes 3 to 4 days ago. She states that she has been taking her medications as prescribed, specifically her cardiac medications. She had not been taking her pain regimen through hospice. Norma LUCERO for palliative medicine presented to the bedside during this morning's evaluation. She denies melena, hematochezia, hematuria, or other bleeding. She denies palpitations or syncope. She was adamant that she wants to feel better. Review of systems: As above. Family history: Mother, father, brother all had CAD. Social history: She smokes a pack per day. She denies drug or alcohol abuse. She lives at home with her . She had 11 children, 6 biologic. 2 of her children have , most recently a son was murdered in 2022. There was no family at the bedside for initial visit today. Allergies Allergy/AdvReac Type Severity Reaction Status Date / Time latex Allergy Intermediate skin Verified 05/15/24 10:08 itching Influenza Virus Vaccines AdvReac Severe developed Verified 05/15/24 10:08 blood clots vaccine adjuvant system, AdvReac Severe blood clots Verified 05/15/24 10:08 [id number] liposomal [From Shingrix (PF)] varicella-zoster virus AdvReac Severe blood clots Verified 05/15/24 10:08 glycoprotein E, recombinant [From Shingrix (PF)] zolpidem [From Ambien] AdvReac Severe Hallucinati Verified 05/15/24 10:08 ng Home Medications Medication Instructions Recorded Confirmed Type levocetirizine 5 mg tablet (Xyzal) 5 mg PO DAILY PRN allergies 05/26/23 07/24/24 History Wheeled Walker #1 ea 06/16/23 05/15/24 Rx blood-glucose meter (OneTouch #1 ea 10/28/23 05/15/24 Rx Ultra2 Meter) lancets 33 gauge (OneTouch Delica #100 ea 10/28/23 05/15/24 Rx Plus Lancet) Hospital Bed Homecare #1 ea 11/04/23 05/15/24 Rx olanzapine 2.5 mg tablet 2.5 mg PO UD PRN Nausea And 11/04/23 07/24/24 History Vomiting WHEEL MOBILITY SCOOTER #1 ea 11/08/23 05/15/24 Rx Wheelchair (Manual) #1 ea 11/08/23 05/15/24 Rx transport chair #1 ea 11/10/23 05/15/24 Rx Magic Mouthwash 300 mL mouthwash 10 ml mucous membrane ACHS PRN 11/22/23 07/24/24 Rx dysphagia #300 mL blood sugar diagnostic (OneTouch #100 ea 12/27/23 05/15/24 Rx Ultra Test strips) prochlorperazine maleate 10 mg 10 mg PO DIRECTED PRN 12/28/23 07/24/24 History tablet NAUSEA/VOMITING albuterol sulfate 90 mcg/actuation 2 puff inhalation QID PRN 02/11/24 07/24/24 Rx aerosol inhaler shortness of breath or wheezing #6.7 grams budesonide 0.5 mg/2 mL suspension 0.5 mg (2 mL) NEB BID #60 doses 02/24/24 07/24/24 Rx for nebulization Emotional Support Animal #1 ea 03/31/24 05/15/24 Rx ondansetron HCl 4 mg tablet 4 mg PO QID PRN nausea and 06/05/24 07/24/24 Rx vomiting #120 tabs pregabalin 150 mg capsule (Lyrica) 150 mg PO TID #90 caps 06/15/24 07/24/24 Rx formoterol fumarate 20 mcg/2 mL 0 mcg inhalation BIDR 06/27/24 07/24/24 History solution for nebulization (Perforomist) umeclidinium 62.5 mcg/actuation 0 inh inhalation DAILY 06/27/24 07/24/24 History blister powder for inhalation (Incruse Ellipta) aspirin 81 mg tablet,delayed 81 mg PO QAM #30 tabs 06/29/24 07/24/24 Rx release atorvastatin 40 mg tablet 40 mg PO QAM #30 tabs 06/29/24 07/24/24 Rx bumetanide 1 mg tablet 1 mg PO BID #60 tabs 06/29/24 07/24/24 Rx isosorbide mononitrate 60 mg 60 mg PO QAM #30 tabs 06/29/24 07/24/24 Rx tablet,extended release 24 hr sacubitril 24 mg-valsartan 26 mg 1 tab PO BID #60 tabs 06/29/24 07/24/24 Rx tablet (Entresto) spironolactone 25 mg tablet 25 mg PO QAM #30 tabs 06/29/24 07/24/24 Rx oxycodone 5 mg tablet 10 mg (2 x 5 mg) PO Q6H PRN pain 07/10/24 07/24/24 Rx or breathlessness #30 tabs nitroglycerin 0.4 mg sublingual 0.4 mg sublingual Q5M PRN chest 07/19/24 07/24/24 Rx tablet pain #30 tabs apixaban 5 mg tablet (Eliquis) 0 mg PO BID 07/24/24 07/24/24 History fentanyl 50 mcg/hr transdermal 0 mcg transdermal Q72H 07/24/24 07/24/24 History patch lorazepam 1 mg tablet 1 mg PO TID PRN Signs/Symptoms 07/24/24 07/24/24 History Terminal Restlessness metoprolol succinate 50 mg 0 mg PO DAILY 07/24/24 07/24/24 History tablet,extended release 24 hr ranolazine 500 mg tablet,extended 0 mg PO BID 07/24/24 07/24/24 History release,12 hr Problem List Dyspnea on exertion Counseling regarding goals of care Palliative care by specialist Cancer-related breakthrough pain Acute hyperglycemia (Acute) Elevated troponin (Acute) Fluid overload (Acute) Tachycardia (Acute) Tachypnea (Acute) COPD exacerbation (Acute) Leukocytosis (Acute) Respiratory distress (Acute) Hypomagnesemia Hyperglycemia due to type 2 diabetes mellitus Leukocytosis Acute on chronic hypoxic respiratory failure Acute hyponatremia (Acute) Acute kidney injury (Acute) Respiratory failure (Acute) Cardiomyopathy Acute HFrEF (heart failure with reduced ejection fraction) Paroxysmal atrial fibrillation Aortic stenosis mild to moderate on 05/2023 echo (DAVIS 1.0 cm2, mean PG 15 mmHg) Diabetes mellitus, type 2 Thrush, oral CAD (coronary artery disease) Tobacco dependence Acute on chronic diastolic (congestive) heart failure Hypoxia Acute hypoxemic respiratory failure (Acute) Acute dyspnea (Acute) Bilateral leg edema (Acute) Lower extremity pain Unwitnessed fall (Acute) Aspiration pneumonia (Acute) Elevated troponin (Acute) Cancer related pain (Acute) Psychosocial problem Brain metastasis (Chronic) Hemoptysis Encounter for pain management Small cell carcinoma of lung (Acute) Anemia (Acute) Diabetes Unusual change in behavior 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 details Chest pain (Acute) Abscess of upper gum Acute bronchitis Cough Allergic rhinitis Dyspnea on exertion Routine health maintenance Trochanteric bursitis of both hips Stress bladder incontinence, female Smoker Insomnia (Chronic) HTN (hypertension), benign (Chronic) Left hip pain (Acute) Anxiety (Acute) Asthma (Chronic) Lyme disease (Chronic) Fibromyalgia (Chronic) Chronic radicular lumbar pain (Chronic) Hypothyroid (Chronic) COPD (chronic obstructive pulmonary disease) (Chronic) CVD (cardiovascular disease) (Chronic) Patient History Medical History Acute on chronic respiratory failure with hypoxia and hypercapnia Non-ST elevation ME (NSTEMI) Refusal of blood transfusions as patient is Zoroastrian Lung cancer metastatic to brain Chronic respiratory failure Takotsubo cardiomyopathy history of Takotsubo cardiomyopathy per [facility] Aneurysmal dilatation AAA, 3.4 cm History of COVID-19 07/2023 Lumbar disc herniation Peripheral neuropathy bilateral legs Hx of deep venous thrombosis years ago Anxiety Onychomycosis Hypotension still occurring occasionally Hypertensive urgency History of TIA (transient ischemic attack) 2018, no deficits History of myocardial infarction x 5 Surgical History History of cardiac cath x 5 stents,between 2014- 2017, done in [place] History of cholecystectomy History of section History of coronary artery stent placement Family History Mother Myocardial infarction Daughter Myocardial infarction Denies family history of Ovarian cancer Prostate cancer Breast cancer Colorectal cancer Social History Smoking Status: Current every day smoker Tobacco Type: Cigarettes Age Started Using Tobacco: 15; packs per day: 1; Cigarettes Per Day: half a pack; Second Hand Exposure: No; Do You Dip or Chew Tobacco: No; Hx Alcohol Use: No Hx Substance Use: No Preferred Language: Romansh Communication Ability: Effective Visual Impairment: No Limitations Custom Clothier Required: No Beliefs That Will Affect Care: Yazidism Yazidism Beliefs: Zoroastrian marital status: Current Living Situation: Family Current Living Situation Comment: lives at home with . current occupational status: disabled How many Children do You have: 6 How many Children do You have Comment: 11 children, 6 biologic - 2 , son murdered in 2022 Other Information That Helps Us Care for You: No Feels Safe at Home: Yes Safety Concerns: Feels Safe At This Time Childhood Exposure to Second-Hand Smoke: Yes Diet: diabetic and regular caffeine: Yes (Coffee) Dental Care, Regularly: No Physical Activity Frequency: Daily Physical Activity Frequency Comment: Daily housework/activites Seatbelt Use: always Sunscreen Use: No Assistive Devices: Scooter/Electric Scooter and Walker Physical Exam Physical Exam: Gen.: No acute distress. Alert and oriented. HEENT: Anicteric sclera. Neck: No JVD. Cardiac: Regular. Normal S1-S2. 2/6 mid-to-late peaking systolic ejection murmur. Pulmonary: Clear to auscultation bilaterally without wheezes, rales, or rhonchi. Abdomen: Soft, nontender, nondistended, with normoactive bowel sounds. No bruits noted. Extremities: 2+ radial pulses bilaterally. 2+ posterior tibialis pulses bilaterally. No edema or cyanosis. Psychiatric: Affect appears appropriate. Results & Data Vital Signs (Past 12 Hours) Vital Signs Temp Pulse Pulse Resp BP BP Pulse Ox 07/26/24 14:08 57 L 07/26/24 12:00 75/44 L 07/26/24 11:31 61 16 65/42 L 64/37 L 96 07/26/24 07:41 36.8 C 85 18 101/59 L 97 07/26/24 07:27 07/26/24 07:20 68 20 92 07/26/24 07:15 66 07/26/24 06:25 92/56 L 07/26/24 06:13 136/87 07/26/24 04:03 129/88 07/26/24 03:53 36.7 C 68 18 85/60 L 92 O2 Del Method O2 Flow Rate 07/26/24 14:08 07/26/24 12:00 07/26/24 11:31 Nasal Cannula 2 07/26/24 07:41 Room Air 07/26/24 07:27 Nasal Cannula 2 07/26/24 07:20 Room Air 07/26/24 07:15 07/26/24 06:25 07/26/24 06:13 07/26/24 04:03 07/26/24 03:53 Nasal Cannula 2 Intake & Output 07/24/24 07/25/24 07/26/24 07/27/24 06:59 06:59 06:59 06:59 Intake Total 210.833 / 210.833 200 / 200 Output Total 400 / 400 1450 / 1450 Balance -189.167 / -189.167 -1250 / -1250 Weight 207 lb 3.752 oz 208 lb 5.389 oz Laboratory Results Laboratory Results - last 24 hr 07/25/24 07/25/24 07/25/24 16:09 18:07 20:05 WBC RBC Hgb Hct MCV MCH MCHC RDW Std Deviation RDW Coeff of Chanel Plt Count MPV Immature Gran % (Auto) Neut % (Auto) Lymph % (Auto) [place] % (Auto) Eos % (Auto) Baso % (Auto) Neut # (Auto) Lymph # (Auto) [place] # (Auto) Eos # (Auto) Baso # (Auto) Immature Gran # (Auto) Sodium Potassium Chloride Carbon Dioxide Anion Gap BUN Creatinine Est Cr Clr Drug Dosing eGFR BUN/Creatinine Ratio Glucose POC Glucose 130 H 160 H Calcium Magnesium Troponin I High Sens 745.8 H* D 07/25/24 07/26/24 07/26/24 23:08 07:18 07:21 WBC 6.14 RBC 3.70 L Hgb 11.4 L Hct 34.4 L MCV 93.0 MCH 30.8 MCHC 33.1 RDW Std Deviation 54.9 H RDW Coeff of Chanel 16.2 H Plt Count 225 MPV 10.3 Immature Gran % (Auto) 1.1 Neut % (Auto) 71.0 Lymph % (Auto) 17.8 [place] % (Auto) 8.6 Eos % (Auto) 1.0 Baso % (Auto) 0.5 Neut # (Auto) 4.36 Lymph # (Auto) 1.09 L [place] # (Auto) 0.53 Eos # (Auto) 0.06 Baso # (Auto) 0.03 Immature Gran # (Auto) 0.07 Sodium 131 L Potassium 4.1 Chloride 91 L Carbon Dioxide 33 H Anion Gap 7 BUN 41 H Creatinine 1.34 H D Est Cr Clr Drug Dosing 48.5 eGFR 44.00 BUN/Creatinine Ratio 30.6 H Glucose 89 POC Glucose 97 Calcium 9.4 Magnesium 2.0 Troponin I High Sens 683.1 H* 07/26/24 11:30 WBC RBC Hgb Hct MCV MCH MCHC RDW Std Deviation RDW Coeff of Chanel Plt Count MPV Immature Gran % (Auto) Neut % (Auto) Lymph % (Auto) [place] % (Auto) Eos % (Auto) Baso % (Auto) Neut # (Auto) Lymph # (Auto) [place] # (Auto) Eos # (Auto) Baso # (Auto) Immature Gran # (Auto) Sodium Potassium Chloride Carbon Dioxide Anion Gap BUN Creatinine Est Cr Clr Drug Dosing eGFR BUN/Creatinine Ratio Glucose POC Glucose 98 Calcium Magnesium Troponin I High Sens Diagnostic Findings Telemetry personally reviewed: Sinus rhythm. No arrhythmia. Palliative care consultation reviewed. History and physical report reviewed. ECGs personally reviewed: ECG 07/24/2024 at 1440: Sinus rhythm [address]/T wave abnormality. ECG 07/25/2024 at 1657: Sinus rhythm 74 bpm. Anterior and lateral ST/T wave abnormality. ST and T wave abnormality more pronounced compared to 07/24/2024 ECG. ECG 07/25/2024 at 1718: Sinus rhythm [address]/T wave abnormality. Cardiac cath report reviewed as noted above in HPI. Echo report reviewed as noted above in HPI. Labs reviewed and notable for mild anemia, normal transaminase levels, mildly abnormal renal function suggesting azotemia, normal potassium, mild hyponatremia. Chest x-ray 07/24/2024: Progressive mixed interstitial and alveolar disease with small pleural effusions per radiology. Medications Administered Current Inpatient Medications Acetaminophen (Acetaminophen 325 Mg Tab) 650 mg PO Q4H PRN PRN Reason: Pain or Fever Stop: 08/23/24 12:24 Last Admin: 07/25/24 14:40 Dose: 650 mg Albuterol (Albuterol Hfa 8 Gm Inhaler) 2 puffs INH QID PRN PRN Reason: shortness of breath or wheezing Stop: 08/23/24 12:24 Albuterol (Albut/Ipratrop 3mg/0.5mg Neb 3 Ml Vial) 3 ml NEB Q6R PRN; Protocol PRN Reason: Shortness Of Breath Or Wheezing Stop: 08/23/24 12:24 Apixaban (Apixaban 5 Mg Tablet) 5 mg PO BID [facility] Stop: 08/23/24 20:59 Last Admin: 07/26/24 08:03 Dose: 5 mg Aspirin (Aspirin 81 Mg Ectab) [facility]: 08/24/24 08:59 Last Admin: 07/26/24 08:03 Dose: 81 mg Atorvastatin Calcium (Atorvastatin 40 Mg Tab) 40 mg PO QAM [facility] Stop: 08/24/24 08:59 Last Admin: 07/26/24 08:03 Dose: 40 mg Cetirizine HCl (Cetirizine Hcl 10 Mg Tablet) 10 mg PO DAILY PRN PRN Reason: Allergies Stop: 08/23/24 12:42 Dextrose (Dextrose 50% 50 Ml Syringe) 25 - 50 ml IV UD PRN; Protocol PRN Reason: Hypoglycemia Protocol Stop: 08/23/24 12:07 Docusate Sodium (Docusate Sodium 100 Mg Cap) 100 mg PO BID PRN PRN Reason: Constipation Stop: 08/23/24 12:24 Fentanyl (Fentanyl 75 Mcg/Hr Tdsy) 1 patch TD Q72H [facility] Stop: 08/09/24 08:59 Last Admin: 07/26/24 08:13 Dose: 1 patch Formoterol Fumarate (Formoterol 20 Mcg/2 Ml Vial) 20 mcg INH BIDR [facility] Stop: 08/23/24 18:59 Last Admin: 07/26/24 07:19 Dose: 20 mcg Glucagon (Glucagon For Inj 1 Mg Vial) 1 mg SQ UD PRN; Protocol PRN Reason: Hypoglycemia Protocol Stop: 08/23/24 12:07 Glucose (Glucose 40% Gel 15 Gm Tube) 15 - 30 gm PO UD PRN; Protocol PRN Reason: Hypoglycemia Protocol Stop: 08/23/24 12:07 Glucose (Glucose 10 Tab/Tube) 4 - 8 tab PO UD PRN; Protocol PRN Reason: Hypoglycemia Protocol Stop: 08/23/24 12:07 Bumetanide 2 mg/ Syringe 8 mls @ 4 mls/min IV BID@0900,1700 [facility] Stop: 08/23/24 16:59 Last Admin: 07/25/24 19:21 Dose: Not Given Insulin Aspart (Insulin Aspart Per Unit Charge) 0 units SC ACHS [facility] Stop: 08/23/24 16:29 Last Admin: 07/26/24 11:42 Dose: Not Given Lorazepam (Lorazepam 1 Mg Tab) 1 mg PO TID PRN PRN Reason: Signs/Symptoms Terminal Restlessness Stop: 08/23/24 12:24 Last Admin: 07/26/24 06:33 Dose: 1 mg Magnesium Oxide (Magnesium Oxide 400 Mg Tab) 400 mg PO QAM [facility] Stop: 08/24/24 08:59 Last Admin: 07/26/24 08:02 Dose: 400 mg Menthol (Cough Drop (Sugar Free) Juan 24 Juan/1 Box) 1 juan BUCCAL PRN PRN PRN Reason: Sore Throat Stop: 08/24/24 19:15 Metoprolol Succinate (Metoprolol Succ 50mg Ext Rel Tab) 50 mg PO DAILY [facility] Stop: 08/24/24 08:59 Last Admin: 07/26/24 08:02 Dose: 50 mg Miscellaneous (Carbohydrates For Hypoglycemia ) 15 - 30 gm PO UD PRN PRN Reason: Hypoglycemia Protocol Stop: 08/23/24 12:07 Miscellaneous (Fentanyl Patch Remove & Waste) 1 each N/A Q3D [facility] Stop: 08/25/24 08:58 Last Admin: 07/26/24 08:05 Dose: 1 each Miscellaneous (Check Fentanyl Patch Placement) 1 each N/A QS [facility] Stop: 08/23/24 15:59 Last Admin: 07/26/24 08:03 Dose: 1 each Miscellaneous (Remove Nitro-Dur Patch) 1 each N/A DAILY@1500 [facility] Stop: 08/26/24 14:59 Multi-Ingredient Mouthwash/Gargle (First - Mouthwash Blm 5 Ml Udp) 5 ml PO ACHS PRN PRN Reason: dysphagia Stop: 08/23/24 12:43 Nitroglycerin (Nitroglycerin Sl 0.4 Mg/Tab Tab) 0.4 mg SL Q5M PRN PRN Reason: Chest Pain Stop: 08/24/24 18:38 Last Admin: 07/26/24 11:25 Dose: 0.4 mg Nitroglycerin (Nitroglycerin 0.1 Mg/Hr Patch) 1 patch TD DAILY@1500 [facility] Stop: 08/25/24 14:59 Ondansetron HCl (Ondansetron Inj 2 Mg/Ml 2 Ml Vial) 4 mg IV Q6H PRN PRN Reason: Nausea And Vomiting Stop: 08/23/24 12:24 Last Admin: 07/25/24 11:29 Dose: 4 mg Oxycodone HCl (Oxycodone Hcl Ir 5 Mg Tab (Immediate Release)) 10 mg PO Q6H PRN PRN Reason: pain or breathlessness Stop: 08/07/24 12:24 Last Admin: 07/26/24 08:01 Dose: 10 mg Pregabalin (Pregabalin 150 Mg Cap) 150 mg PO TID [facility] Stop: 08/23/24 13:59 Last Admin: 07/26/24 14:00 Dose: Not Given Ranolazine (Ranolazine 500 Mg Er Tab) 1,000 mg PO BID [facility] Stop: 08/24/24 20:59 Last Admin: 07/26/24 08:04 Dose: 1,000 mg Sacubitril/Valsartan (Valsartan/Sacubitril 26/24mg Tab) 1 tab PO BID [facility] Stop: 08/23/24 20:59 Last Admin: 07/26/24 08:02 Dose: 1 tab Spironolactone (Spironolactone 25 Mg Tab) 25 mg PO QAM [facility] Stop: 08/24/24 08:59 Last Admin: 07/26/24 08:04 Dose: 25 mg Umeclidinium Imogene (Umeclidinium Imogene 62.5mcg/Blister 7 Puffs/Inhaler) 1 puffs INH DAILY [facility] Stop: 08/24/24 08:59 Last Admin: 07/26/24 08:05 Dose: Not Given PG Care Time/CCT Total # of Minutes Spent Total Time Spent with Patient: Total time spent is greater than 50% in coordination of care (as documented) at patient's floor/unit and/or counseling patient: Coding Level of Care Code 06088 INT INP/OBS CARE 3/75MIN Diagnoses Non-ST elevation ME (NSTEMI) I21.4 CAD (coronary artery disease) I25.10 Aortic stenosis I35.0 Acute HFrEF (heart failure with reduced ejection fraction) I50.21 Paroxysmal atrial fibrillation I48.0 Acute on chronic hypoxic respiratory failure J96.21 Cardiomyopathy I42.9
[2024-07-26] MEDS: HYDROmorphone INJ 0.5 MG/0.5 ML SYR ONE (16:04)
[2024-07-26] MEDS ORDERED: GLYCOPYRROLATE 0.2 MG/ML VIAL IV PRN (16:07)
[2024-07-26] MEDS ORDERED: HYDROmorphone INJ 0.5 MG/0.5 ML SYR IV PRN (16:07)
[2024-07-26] MEDS: SODIUM CHLORIDE 0.9% 250 ML IV ONE (16:18)
[2024-07-26] MEDS: HYDROmorphone INJ 0.5 MG/0.5 ML SYR IV PRN (16:43)
[2024-07-26] MEDS: NITROGLYCERIN 0.1 MG/HR PATCH TD SCH (16:50)
[2024-07-26] MEDS: HYDROmorphone INJ 0.5 MG/0.5 ML SYR IV STA (17:42)
--- NOTE | 2024-07-26 21:13 | Electrocardiogram Report ---
Test Reason : Blood Pressure : */* mmHG Vent. Rate : 128 BPM Atrial Rate : 128 BPM P-R Int : 142 ms QRS Dur : 114 ms QT Int : 322 ms P-R-T Axes : 86 51 117 degrees QTcB Int : 470 ms Sinus tachycardia Incomplete left bundle block Moderate voltage criteria for LVH, may be normal variant ( Sokolow-Serna , [place] product ) ST elevation consider inferior injury or acute infarct Abnormal ECG When compared with ECG of 09-Jul-2024 03:32, Minimal criteria for Septal infarct are no longer Present ST elevation has replaced ST depression in Inferior leads Confirmed by Brian Lizama ([id number]) on 07/26/2024 9:13:12 PM Referred By: Confirmed By: Brian Lizama
--- NOTE | 2024-07-26 21:14 | Electrocardiogram Report ---
Test Reason : Blood Pressure : */* mmHG Vent. Rate : 84 BPM Atrial Rate : 84 BPM P-R Int : 156 ms QRS Dur : 110 ms QT Int : 402 ms P-R-T Axes : 75 27 128 degrees QTcB Int : 475 ms Normal sinus rhythm Possible Left atrial enlargement Incomplete left bundle block Prolonged QT Abnormal ECG When compared with ECG of 24-Jul-2024 09:13, Vent. rate has decreased by 44 bpm Confirmed by Brian Lizama ([id number]) on 07/26/2024 9:14:01 PM Referred By: REFERRED SELF Confirmed By: Brian Lizama
--- NOTE | 2024-07-26 21:15 | Electrocardiogram Report ---
Test Reason : Blood Pressure : */* mmHG Vent. Rate : 71 BPM Atrial Rate : 71 BPM P-R Int : 156 ms QRS Dur : 98 ms QT Int : 454 ms P-R-T Axes : 74 27 104 degrees QTcB Int : 493 ms Normal sinus rhythm Prolonged QT Abnormal ECG When compared with ECG of 25-Jul-2024 16:57, T wave inversion less evident in Lateral leads Confirmed by Brian Lizama ([id number]) on 07/26/2024 9:15:02 PM Referred By: REFERRED SELF Confirmed By: Brian Lizama
--- NOTE | 2024-07-26 21:15 | Electrocardiogram Report ---
Test Reason : Blood Pressure : */* mmHG Vent. Rate : 74 BPM Atrial Rate : 74 BPM P-R Int : 158 ms QRS Dur : 102 ms QT Int : 424 ms P-R-T Axes : 72 49 135 degrees QTcB Int : 470 ms Normal sinus rhythm Abnormal ECG When compared with ECG of 24-Jul-2024 14:40, ST now depressed in Anterior leads Confirmed by Brian Lizama ([id number]) on 07/26/2024 9:14:41 PM Referred By: REFERRED SELF Confirmed By: Brian Lizama
[2024-07-26] MEDS: LORazepam 2 MG/1 ML VIAL IV PRN (23:25)
--- NOTE | 2024-07-27 08:52 | Palliative Care Progress Note ---
Date of Service July 27, 2024 Assessment & Plan (1) Palliative care by specialist: Plan: Pt's daughter was at bedside, discussed plan of care / NEWSPAPER LIBRARY MANAGER symptom management and offered anticipatory guidance on stages of dying. Helped her understand that all the medications given will be directed at easing her dyspnea, anxiety, pain or other discomfort. Discussed changes pt may move through in the dying process including but not limited to sleeping more, disorientation when awake, restlessness, diminished senses/inability to respond to stimulus although ability to be aware of them remains intact longer, and changes in body temperatures, skin changes/mottling/cyanosis, respiratory pattern changes, and oral secretions. Family verbalized understanding. The goal is to assure a peaceful . Family will likely require frequent reinforcement of these details. (2) Comfort measures only status: (3) Need for comfort care: Plan NEWSPAPER LIBRARY MANAGER - Symptom manamgement: Continue GDMT per cardiology/primary. Angina SL nitroglycerin 0.4 mg SL Q5M PRN Pain/dyspnea/tachypnea/angina refractory to nitrogycerin Continue duragesic 75mcg 1 patch TD Q72H TANIA dilaudid 0.5mg IVP PRN [id number] Consider dilaudid infusion if pt requires >3 PRN doses in under two consecutive hours. Nausea/vomitting zofran 4mg IVP q4h PRN Agitation scheduled ativan 0.5mg IVP q8h ativan 0.5mg IVP q4h PRN Hyperactive delirium haldol 5mg IVP q6h PRN Secretions - if repositioning not effective robinul 0.4mg IV q4h PRN atropine SL 3 drops Q1h PRN Nursing care: Discontinue all medications not directed towards comfort. Detether pt from IV tubing, monitor cables, and check vitals once per shift. Please continue HFNC and titrate down as able for patient comfort. Use medications above PRN for dyspnea/tachypnea and do not increase oxygen once titrated down. Assess q1h for pain/dyspnea and treat accordingly. Admission and Anticipated Discharge Date Admission Date: July 24, 2024 Subjective Assessed pt at bedside, She was transitioned to NEWSPAPER LIBRARY MANAGER overnight 05/26/2024. Pt is drowsy but arouses to verbal stimuli, she is pleasantly confused. She did complain of anxiety and mild chest discomfort and requested "nitro and ativan". Pt's daughter was at bedside, discussed plan of care / NEWSPAPER LIBRARY MANAGER symptom management and offered anticipatory guidance. Review of Systems Review of Systems: Unobtainable due to cognitive status Physical Exam Physical Exam: Gen.: No acute distress. Drowsy, but arousable, oriented to person only. HEENT: Anicteric sclera. Neck: No obvious JVD. Cardiac: Regular. Normal S1-S2. mild edema to BLE. Pulmonary: Decreased breath sounds throughout Abdomen: Soft, nontender, nondistended, with normoactive bowel sounds. No bruits noted. Skin: no rashes, warm and dry pale Neurologic: PERRL, EOMI, accommodation nl, no face palsy, no dysarthria Results & Data Vital Signs (Past 12 Hours) Vital Signs Temp Pulse Pulse Resp BP BP Pulse Ox 07/27/24 08:41 36.3 C L 69 20 94/61 L 91 07/27/24 00:08 36.5 C 72 18 87/59 L 98 07/26/24 23:59 58 L 07/26/24 21:55 O2 Del Method 07/27/24 08:41 Room Air 07/27/24 00:08 Room Air 07/26/24 23:59 07/26/24 21:55 Room Air Laboratory Results No further labs or diagnostics in concert with comfort directed care. Diagnostic Findings No further labs or diagnostics in concert with comfort directed care. Medications Administered Current Inpatient Medications Albuterol (Albut/Ipratrop 3mg/0.5mg Neb 3 Ml Vial) 3 ml NEB Q6R PRN; Protocol PRN Reason: Shortness Of Breath Or Wheezing Stop: 08/23/24 12:24 Fentanyl (Fentanyl 75 Mcg/Hr Tdsy) 1 patch TD Q72H TANIA Stop: 08/09/24 08:59 Last Admin: 07/26/24 08:13 Dose: 1 patch Glycopyrrolate (Glycopyrrolate 0.2 Mg/Ml Vial) 0.4 mg IV Q4H PRN PRN Reason: Rattling Secretions or Pulm Congestion Stop: 08/25/24 16:06 Hydromorphone HCl (Hydromorphone Inj 1 Mg/Ml Syringe) 1 mg IV Q1H PRN PRN Reason: Pain or Respiratory Distress Stop: 08/10/24 10:27 Last Admin: 07/27/24 10:31 Dose: 1 mg Lorazepam (Lorazepam 2 Mg/1 Ml Vial) 0.5 mg IV Q4H PRN PRN Reason: Anxiety/Agitation Stop: 08/25/24 16:06 Last Admin: 07/27/24 07:55 Dose: 0.5 mg Lorazepam (Lorazepam 2 Mg/1 Ml Vial) 0.5 mg IV Q8H TANIA Stop: 08/26/24 10:29 Last Admin: 07/27/24 10:32 Dose: 0.5 mg Miscellaneous (Fentanyl Patch Remove & Waste) 1 each N/A Q3D [facility] Stop: 08/25/24 08:58 Last Admin: 07/26/24 08:05 Dose: 1 each Miscellaneous (Check Fentanyl Patch Placement) 1 each N/A QS [facility] Stop: 08/23/24 15:59 Last Admin: 07/27/24 07:56 Dose: 1 each Nitroglycerin (Nitroglycerin Sl 0.4 Mg/Tab Tab) 0.4 mg SL Q5M PRN PRN Reason: Chest Pain Stop: 08/24/24 18:38 Last Admin: 07/26/24 11:25 Dose: 0.4 mg Ondansetron HCl (Ondansetron Inj 2 Mg/Ml 2 Ml Vial) 4 mg IV Q6H PRN PRN Reason: Nausea And Vomiting Stop: 08/23/24 12:24 Last Admin: 07/26/24 16:43 Dose: 4 mg PG Care Time/CCT Total # of Minutes Spent Total Time Spent with Patient: Total time spent is greater than 50% in coordination of care (as documented) at patient's floor/unit and/or counseling patient: Advanced Care Planning 62107 Advanced Care Planning 30 Min [place] [address] SUB INP/OBS CARE 2/35MIN Patient Type Established Medical Decision Making Moderate Complexity Diagnoses Palliative care by specialist Z51.5 Comfort measures only status Z51.5 Need for comfort care Additional Codes Advanced Care Planning - 91134 Advanced Care Planning 30 Min: 10296 Advanced Care Planning 30 Min ([id number])
[2024-07-27] MEDS: HYDROmorphone INJ 1 MG/ML SYRINGE IV PRN (10:31)
[2024-07-27] MEDS: LORazepam 2 MG/1 ML VIAL IV SCH (10:32)
--- NOTE | 2024-07-27 13:04 | Hospitalist Progress Note ---
Date of Service July 27, 2024 Assessment & Plan (1) Comfort measures only status: Plan: With refractory angina, severe CAD, acute on chronic HFrEF with respiratory failure, severe , and now hypotension secondary to cardiogenic shock vs nitrates/opioids/CHF meds, all in setting of lung CA with mets to brain with chronic pain issues---> transitioned to SPIRAL MACHINE OPERATOR on 07/26 as per multiple discussions with patient, family members including , son, and daughter. Stopped all po meds as she is very lethargic No further lab draws or glucose checks COntinue IV dilaudid 1mg IV--> increase frequency to q1h prn SOB or pain, continue Fentanyl patch 75 Make IV ativan 0.5mg IV tid scheduled and also with prn breakthrough Continue RObinul and atropine gtts prn secretions O2 for comfort Can place [place] if desired for comfort Will likely pass away in hospital within the next 7 days Remove bulk station operator and downgrade to medical unit (2) Acute HFrEF (heart failure with reduced ejection fraction): Plan: Acute on chronic HFrEF- patient with worsening dyspnea and bilateral lower extremity edema stated she has been compliant on home Bumex 1mg PO BID but is not really following a fluid or sodium restriction as she had been on hospice Daughter reports pt wasn't actually taking the Bumex because it made her urinate too much History of ischemic cardiomyopathy - CAD s/p 5 stents, with last being in 2017 Last echocardiogram on 06/27/24 with EF 30 to 35%, severe hypokinesis to akinesis of inferior and inferior lateral irizarry, as well as moderate to severe aortic stenosis With recent NSTEMI in with cardiac cath showing severe multivessel disease, including 95% left main disease-not a candidate for CABG BNP 1681 on admission Received diuresis with 2mg Bumex IV bid and diuresed quite a bit. 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 CXR showing cardiomegaly with mixed disease along with small pleural effusions, appears improved from CXR 07/09 On admission w/ leukocytosis , Afebrile, biofire negative . Patient continues to smoke cigarettes at home - 2 pack/day Weaned to room air after diuresis No PNA-was just treated for PNA with Augmentin 2 weeks ago- blood cultures no growth Continue DuoNeb prn Q6 prn but now on SPIRAL MACHINE OPERATOR -dcd maintenance inhalers (4) Elevated troponin: Plan: Likely Type II OR due to acute on chronic systolic CHF and acute on chronic hypoxic respiratory failure history of CAD and NSTEMI, has been having angina relieved with nitroglycerin 3x/day at home Here with chest pain on numerous occasions with associated ECG changes . Had cardiac cath last admission which showed severe multivessel dz including 95% left main stenosis Is a high risk cardiac stenting candidate and she is not a CABG candidate given met lung CA Troponin here peaked at 1700, but pt continued to have ongoing angina requiring nitrates and subsequent hypotension Nitrates stopped and was given back some IVFs on 07/26 for profound hypotension BP 50-60 systolic-combo of Entresto, metoprolol, opioids for pain, previous nitrates, isosorbide, and previous diuresis. Now on SPIRAL MACHINE OPERATOR (5) CAD (coronary artery disease): Plan: Has a h/o 5 stents in heart and severe left main disease, not CABG candidate (6) Acute hyponatremia: Plan: 129 on admission suspect secondary to volume overload Improved with diuresis, up to 132 no further lab draws on SPIRAL MACHINE OPERATOR (7) Hyperglycemia due to type 2 diabetes mellitus: Plan: recently discontinued metformin as was transition to hospice care during previous admissions Most recent A1C 5.5 on 05/08 hyperglycemic on admission, glucose 312 on SPIRAL MACHINE OPERATOR, stopped glucose checks and insulin Plan Chronic stable diagnoses: Paroxysmal a fib - remains in NSR, dcd Eliquis and metoprolol on SPIRAL MACHINE OPERATOR 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 Appreciate Palliative Med and Cardiology consults. Admission and Anticipated Discharge Date Admission Date: July 24, 2024 Subjective Pt obtunded and I did not try to wake her. Son at bedside says she is comfortable, sometimes confused when she is awake. Physical Exam Constitutional: + lethargic; no acute distress Respiratory: normal respiratory effort Psychiatric: Orientation: + not alert Results & Data Results & Data Vital Signs (Past 12 Hours) Vital Signs Temp Pulse Resp BP Pulse Ox O2 Del Method 07/27/24 08:41 36.3 C L 69 20 94/61 L 91 Room Air PG Care Time/CCT Total # of Minutes Spent Total Time Spent with Patient: Total time spent is greater than 50% in coordination of care (as documented) at patient's floor/unit and/or counseling patient: Coding Level of Care Code 86681 SUB INP/OBS CARE 09/02MIN Diagnoses Comfort measures only status Z51.5 Acute HFrEF (heart failure with reduced ejection fraction) I50.21 Acute on chronic hypoxic respiratory failure J96.21 Elevated troponin R79.89 CAD (coronary artery disease) I25.10 Acute hyponatremia E87.1 Hyperglycemia due to type 2 diabetes mellitus E11.65
--- NOTE | 2024-07-28 08:32 | Hospitalist Progress Note ---
Date of Service July 28, 2024 Assessment & Plan (1) Comfort measures only status: Plan: With refractory angina, severe CAD, acute on chronic HFrEF with respiratory failure, severe , and now hypotension secondary to cardiogenic shock vs nitrates/opioids/CHF meds, all in setting of lung CA with mets to brain with chronic pain issues---> transitioned to CUSTOMER RELATIONS ADVISOR on 07/26 as per multiple discussions with patient, family members including , son, and daughter. Stopped all po meds as she is very lethargic No further lab draws or glucose checks Continue IV Dilaudid 1mg IV--> increase frequency to q1h prn SOB or pain, continue Fentanyl patch 75 - will discuss switching to continuous IV infusion with palliative care Make IV Ativan 0.5mg IV tid scheduled and also with prn breakthrough Continue Robinul and atropine gtts prn secretions Add Compazine and Phenergan for nausea O2 for comfort Can place [place] if desired for comfort Will likely pass away in hospital within the next 7 days Remove cardiac exercise physiologist and downgrade to medical unit (2) Acute HFrEF (heart failure with reduced ejection fraction): (3) Acute on chronic hypoxic respiratory failure: (4) Elevated troponin: (5) CAD (coronary artery disease): (6) Acute hyponatremia: (7) Hyperglycemia due to type 2 diabetes mellitus: Plan Dispo:transitioned to CUSTOMER RELATIONS ADVISOR 07/26. Appreciate Palliative Med and Cardiology consults. Admission and Anticipated Discharge Date Admission Date: July 24, 2024 Subjective Patient awake and confused. Complaining of 9/10 severity pain in back. Ongoing nausea despite ondansetron use. Daughter concerned about PRN opiates rather than continuous IV infusion. Physical Exam Constitutional: well developed; no acute distress Results & Data Results & Data Vital Signs (Past 12 Hours) Vital Signs O2 Del Method 07/28/24 07:54 Room Air PG Care Time/CCT Total # of Minutes Spent Total Time Spent with Patient: Total time spent is greater than 50% in coordination of care (as documented) at patient's floor/unit and/or counseling patient: Coding Level of Care Code 11528 SUB INP/OBS CARE 2/35MIN Diagnoses Comfort measures only status Z51.5 Acute HFrEF (heart failure with reduced ejection fraction) I50.21 Acute on chronic hypoxic respiratory failure J96.21 Elevated troponin R79.89 CAD (coronary artery disease) I25.10 Acute hyponatremia E87.1 Hyperglycemia due to type 2 diabetes mellitus E11.65
[2024-07-28 09:07] VITALS: BP 116/80; PULSE 74; RESP 14; TEMP 98.4; O2SAT 93
[2024-07-28] MEDS ORDERED: PROMETHAZINE HCL 25 MG TAB PO PRN (09:56)
[2024-07-28] MEDS ORDERED: PROCHLORPERAZINE 5 MG in SYRINGE 4 ML IV PRN (09:56)
[2024-07-28] MEDS ORDERED: STAT IV Infusion **Titration per Protocol STA (11:35)
--- NOTE | 2024-07-28 11:42 | Palliative Care Progress Note ---
Date of Service July 28, 2024 Assessment & Plan (1) Palliative care by specialist: Plan: Pt's spouse Alon was at bedside, discussed plan of care / MARKETING EDUCATION TEACHER symptom management and offered anticipatory guidance on stages of dying. Helped him understand that all the medications given will be directed at easing her dyspnea, anxiety, pain or other discomfort. Discussed changes pt may move through in the dying process including but not limited to sleeping more, disorientation when awake, restlessness, diminished senses/inability to respond to stimulus although ability to be aware of them remains intact longer, and changes in body temperatures, skin changes/mottling/cyanosis, respiratory pattern changes, and oral secretions. Alon verbalized understanding. The goal is to assure a peaceful . Family will likely require frequent reinforcement of these details. (2) Comfort measures only status: (3) Need for comfort care: Plan MARKETING EDUCATION TEACHER - Symptom manamgement: Continue GDMT per cardiology/primary. Angina SL nitroglycerin 0.4 mg SL Q5M PRN Pain/dyspnea/tachypnea/angina refractory to nitrogycerin Continue duragesic 75mcg 1 patch TD Q72H TANIA dilaudid 0.5mg IVP PRN [id number] Initiate dilaudid infusion if pt requires >3 PRN doses in under two consecutive hours. Nausea/vomitting zofran 4mg IVP q4h PRN Agitation scheduled ativan 0.5mg IVP q8h ativan 0.5mg IVP q4h PRN Hyperactive delirium haldol 5mg IVP q6h PRN Secretions - if repositioning not effective robinul 0.4mg IV q4h PRN atropine SL 3 drops Q1h PRN Nursing care: Discontinue all medications not directed towards comfort. Detether pt from IV tubing, monitor cables, and check vitals once per shift. Please continue HFNC and titrate down as able for patient comfort. Use medications above PRN for dyspnea/tachypnea and do not increase oxygen once titrated down. Assess q1h for pain/dyspnea and treat accordingly. Admission and Anticipated Discharge Date Admission Date: July 24, 2024 Subjective Assessed pt at bedside, She was transitioned to MARKETING EDUCATION TEACHER on 05/26/2024. Pt is drowsy but arouses to verbal stimuli, she is pleasantly confused. She did complain of sharp nagging back pain and requested pain medication. Pt's spouse was at bedside, discussed plan of care / MARKETING EDUCATION TEACHER symptom management and offered anticipatory guidance. Spouse expressed concern that pt is not getting adequate pain mgmt. Review of Systems Review of Systems: All systems reviewed & are unremarkable except as noted in HPI & below Physical Exam Physical Exam: Gen.: No acute distress. Drowsy, but arousable, oriented to person only. HEENT: Anicteric sclera. Neck: No obvious JVD. Cardiac: Regular. Normal S1-S2. mild edema to BLE. Pulmonary: Decreased breath sounds throughout Abdomen: Soft, nontender, nondistended, with normoactive bowel sounds. No bruits noted. Skin: no rashes, warm and dry pale Neurologic: PERRL, EOMI, accommodation nl, no face palsy, no dysarthria Results & Data Vital Signs (Past 12 Hours) Vital Signs Temp Pulse Resp BP Pulse Ox O2 Del Method 07/28/24 07:54 Room Air 07/28/24 07:35 36.9 C 74 14 116/80 93 Room Air Laboratory Results No further labs or diagnostics in concert with comfort directed care. Diagnostic Findings No further labs or diagnostics in concert with comfort directed care. Medications Administered Current Inpatient Medications Albuterol (Albut/Ipratrop 3mg/0.5mg Neb 3 Ml Vial) 3 ml NEB Q6R PRN; Protocol PRN Reason: Shortness Of Breath Or Wheezing Stop: 08/23/24 12:24 Fentanyl (Fentanyl 75 Mcg/Hr Tdsy) 1 patch TD Q72H TANIA Stop: 08/09/24 08:59 Last Admin: 07/26/24 08:13 Dose: 1 patch Glycopyrrolate (Glycopyrrolate 0.2 Mg/Ml Vial) 0.4 mg IV Q4H PRN PRN Reason: Rattling Secretions or Pulm Congestion Stop: 08/25/24 16:06 Hydromorphone HCl (Hydromorphone Bolus From Bag) 0.5 mg IV Q30M PRN PRN Reason: Comfort Care Parameters Stop: 08/11/24 11:34 Last Admin: 07/28/24 16:19 Dose: 0.5 mg Prochlorperazine 5 mg/ Syringe 5 mls @ 5 mls/min IV Q6H PRN PRN Reason: Nausea &/or Vomiting Stop: 08/27/24 09:55 Hydromorphone HCl (Dilaudid) 100 mg in 100 mls @ 0.5 mls/hr IV .Q96H [facility]; Protocol Stop: 08/11/24 11:44 Last Admin: 07/28/24 12:19 Dose: 0.5 mg/hr, 0.5 mls/hr Lorazepam (Lorazepam 2 Mg/1 Ml Vial) 0.5 mg IV Q4H PRN PRN Reason: Anxiety/Agitation Stop: 08/25/24 16:06 Last Admin: 07/28/24 14:22 Dose: 0.5 mg Lorazepam (Lorazepam 2 Mg/1 Ml Vial) 0.5 mg IV Q8H [facility] Stop: 08/26/24 10:29 Last Admin: 07/28/24 09:53 Dose: 0.5 mg Miscellaneous (Fentanyl Patch Remove & Waste) 1 each N/A Q3D [facility] Stop: 08/25/24 08:58 Last Admin: 07/26/24 08:05 Dose: 1 each Miscellaneous (Check Fentanyl Patch Placement) 1 each N/A QS [facility] Stop: 08/23/24 15:59 Last Admin: 07/28/24 15:57 Dose: 1 each Nitroglycerin (Nitroglycerin Sl 0.4 Mg/Tab Tab) 0.4 mg SL Q5M PRN PRN Reason: Chest Pain Stop: 08/24/24 18:38 Last Admin: 07/26/24 11:25 Dose: 0.4 mg Ondansetron HCl (Ondansetron Inj 2 Mg/Ml 2 Ml Vial) 4 mg IV Q6H PRN PRN Reason: Nausea And Vomiting Stop: 08/23/24 12:24 Last Admin: 07/28/24 16:26 Dose: 4 mg Promethazine HCl (Promethazine Hcl 25 Mg Tab) 12.5 mg PO Q6H PRN PRN Reason: Nausea &/or Vomiting Stop: 08/27/24 09:55 PG Care Time/CCT Total # of Minutes Spent Total Time Spent with Patient: Total time spent is greater than 50% in coordination of care (as documented) at patient's floor/unit and/or counseling patient: Coding [place] [address] SUB INP/OBS CARE 2/35MIN Patient Type Established History Problem Focused Exam Problem Focused Medical Decision Making Low Complexity Diagnoses Palliative care by specialist Z51.5 Comfort measures only status Z51.5 Need for comfort care
[2024-07-28] MEDS: HYDROmorphone 100 MG/100 ML BAG IV SCH (12:19)
[2024-07-28] MEDS: HYDROmorphone BOLUS from BAG IV PRN (16:19)
[2024-07-28] MEDS: LORazepam 2 MG/1 ML VIAL IV PRN (22:25)
--- NOTE | 2024-07-29 09:19 | Hospitalist Progress Note ---
Date of Service July 29, 2024 Assessment & Plan (1) Comfort measures only status: Plan: With refractory angina, severe CAD, acute on chronic HFrEF with respiratory failure, severe , and now hypotension secondary to cardiogenic shock vs nitrates/opioids/CHF meds, all in setting of lung CA with mets to brain with chronic pain issues---> transitioned to MARKETING COMPLIANCE MANAGER on 07/26 as per multiple discussions with patient, family members including , son, and daughter. Stopped all po meds as she is lethargic No further lab draws or glucose checks Not on continuous Dilaudid Make IV Ativan 0.5mg IV tid scheduled and also with prn breakthrough Continue Robinul and atropine gtts prn secretions Added Compazine and Phenergan for nausea O2 for comfort Can place [place] if desired for comfort Remove nuclear monitoring technician and downgrade to medical unit (2) Acute HFrEF (heart failure with reduced ejection fraction): (3) Acute on chronic hypoxic respiratory failure: (4) Elevated troponin: (5) CAD (coronary artery disease): (6) Acute hyponatremia: (7) Hyperglycemia due to type 2 diabetes mellitus: Plan Dispo:transitioned to MARKETING COMPLIANCE MANAGER 07/26. Appreciate Palliative Med and Cardiology consults. Admission and Anticipated Discharge Date Admission Date: July 24, 2024 Subjective Patient now on Dilaudid continuous drip. No pain. She appears confused. No questions or concerns from family member at bedside. Physical Exam Constitutional: well developed; no acute distress PG Care Time/CCT Total # of Minutes Spent Total Time Spent with Patient: Total time spent is greater than 50% in coordination of care (as documented) at patient's floor/unit and/or counseling patient: Coding Level of Care Code 79855 SUB INP/OBS CARE 1/25MIN Diagnoses Comfort measures only status Z51.5 Acute HFrEF (heart failure with reduced ejection fraction) I50.21 Acute on chronic hypoxic respiratory failure J96.21 Elevated troponin R79.89 CAD (coronary artery disease) I25.10 Acute hyponatremia E87.1 Hyperglycemia due to type 2 diabetes mellitus E11.65
[2024-07-30] MEDS: SODIUM CHLORIDE 0.65% NA SOLN 45 ML (OCEAN) ONE (01:52)
--- NOTE | 2024-07-30 10:04 | Hospitalist Progress Note ---
Date of Service July 30, 2024 Assessment & Plan (1) Comfort measures only status: Plan: With refractory angina, severe CAD, acute on chronic HFrEF with respiratory failure, severe , and now hypotension secondary to cardiogenic shock vs nitrates/opioids/CHF meds, all in setting of lung CA with mets to brain with chronic pain issues---> transitioned to [employer] on 07/26 as per multiple discussions with patient, family members including , son, and daughter. Stopped all po meds as she is lethargic No further lab draws or glucose checks Now on continuous Dilaudid IV Ativan 0.5mg IV tid scheduled and also with prn breakthrough Continue Robinul and atropine gtts prn secretions Ondansetron 1st line, Compazine and Phenergan for nausea O2 for comfort Can place Henderson if desired for comfort If not actively dying tomorrow and able to meet needs at home will defer to palliative care whether this can be set up (2) Acute HFrEF (heart failure with reduced ejection fraction): (3) Acute on chronic hypoxic respiratory failure: (4) Elevated troponin: (5) CAD (coronary artery disease): (6) Acute hyponatremia: (7) Hyperglycemia due to type 2 diabetes mellitus: Plan Dispo:transitioned to [employer] 07/26. Appreciate Palliative Med and Cardiology consults. Admission and Anticipated Discharge Date Admission Date: July 24, 2024 Subjective Remains on Dilaudid continuous drip. Repeating the word "home" but not in pain. Physical Exam Constitutional: no acute distress Respiratory: normal respiratory effort; no respiratory distress PG Care Time/CCT Total # of Minutes Spent Total Time Spent with Patient: Total time spent is greater than 50% in coordination of care (as documented) at patient's floor/unit and/or counseling patient: Coding Level of Care Code 70547 SUB INP/OBS CARE 1/25MIN Diagnoses Comfort measures only status Z51.5 Acute HFrEF (heart failure with reduced ejection fraction) I50.21 Acute on chronic hypoxic respiratory failure J96.21 Elevated troponin R79.89 CAD (coronary artery disease) I25.10 Acute hyponatremia E87.1 Hyperglycemia due to type 2 diabetes mellitus E11.65
[2024-07-30] MEDS: diphenhydrAMINE 50 MG/ML VIAL IV STA (23:49)
--- NOTE | 2024-07-31 10:55 | Hospitalist Progress Note ---
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 Now on continuous Dilaudid IV Ativan 0.5mg IV tid scheduled and also with prn breakthrough Continue Robinul and atropine gtts prn secretions Ondansetron 1st line, Compazine and Phenergan for nausea O2 for comfort Continue Henderson discussed with palliative care provider, Norma - not a candidate for return home, will remain inpatient GIP consult today (2) Acute HFrEF (heart failure with reduced ejection fraction): (3) Acute on chronic hypoxic respiratory failure: (4) Elevated troponin: (5) CAD (coronary artery disease): (6) Acute hyponatremia: (7) Hyperglycemia due to type 2 diabetes mellitus: Plan Dispo: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 GIP consult today updated at bedside 07/31 Admission and Anticipated Discharge Date Admission Date: July 24, 2024 Supervising Physician Co-Signing Physician Notes Attending Attestation - Chart reviewed, care plan d/w JERONIMO Turner. I agree w/ the franks components of her documentation. Appreciate palliative care assistance. Saman Hicks MD Subjective Patient seen sitting up in bed present at bedside. Reports back pain radiating across her shoulders, denies chest pain unsure if the recent Dilaudid bolus has helped her pain Patient remains on comfort measures only status Review of Systems Review of Systems: All systems reviewed & are unremarkable except as noted in Subjective Physical Exam Physical Exam: appears comfortable, breathing is unlabored Back: Pain with palpation between shoulder blades Regular heart rate positive murmur : Henderson in place PG Care Time/CCT Total # of Minutes Spent Total Time Spent with Patient: Total time spent is greater than 50% in coordination of care (as documented) at patient's floor/unit and/or counseling patient: Coding Level of Care Code 62638 SUB INP/OBS CARE 1/25MIN Diagnoses Comfort measures only status Z51.5 Acute HFrEF (heart failure with reduced ejection fraction) I50.21 Acute on chronic hypoxic respiratory failure J96.21 Elevated troponin R79.89 CAD (coronary artery disease) I25.10 Acute hyponatremia E87.1 Hyperglycemia due to type 2 diabetes mellitus E11.65
--- NOTE | 2024-07-31 13:10 | Palliative Care Progress Note ---
Date of Service July 31, 2024 Assessment & Plan (1) Palliative care by specialist: Plan: Pt's spouse Alon was at bedside, discussed plan of care / AMMONIA NITRATE OPERATOR symptom management and offered anticipatory guidance on stages of dying. Reinforced that all the medications given will be directed at easing her dyspnea, anxiety, pain or other discomfort. Reinforced changes pt may move through in the dying process including but not limited to sleeping more, disorientation when awake, restlessness, diminished senses/inability to respond to stimulus although ability to be aware of them remains intact longer, and changes in body temperatures, skin changes/mottling/cyanosis, respiratory pattern changes, and oral secretions. Alon verbalized understanding. The goal is to assure a peaceful . Alon shared that he has not been sleeping much and is only concerned for his 's comfort. Self-care encouraged. (2) Comfort measures only status: (3) Need for comfort care: Plan AMMONIA NITRATE OPERATOR - Symptom manamgement: Continue GDMT per cardiology/primary. Angina SL nitroglycerin 0.4 mg SL Q5M PRN Pain/dyspnea/tachypnea/angina refractory to nitrogycerin Continue duragesic 75mcg 1 patch TD Q72H TANIA dilaudid 0.5mg IVP PRN [id number] continue dilaudid infusion if pt requires >3 PRN doses in under two consecutive hours. Nausea/vomitting zofran 4mg IVP q4h PRN Itching/ second line for N/V Promethazine Hcl 12.5 mg PO Q6H PRN Agitation scheduled ativan 0.5mg IVP q8h ativan 0.5mg IVP q4h PRN Hyperactive delirium haldol 5mg IVP q6h PRN Secretions - if repositioning not effective robinul 0.4mg IV q4h PRN atropine SL 3 drops Q1h PRN Nursing care: Discontinue all medications not directed towards comfort. Detether pt from IV tubing, monitor cables, and check vitals once per shift. Please continue HFNC and titrate down as able for patient comfort. Use medications above PRN for dyspnea/tachypnea and do not increase oxygen once titrated down. Assess q1h for pain/dyspnea and treat accordingly. Admission and Anticipated Discharge Date Admission Date: July 24, 2024 Subjective Assessed pt at bedside, She was transitioned to AMMONIA NITRATE OPERATOR on 05/26/2024. Pt is drowsy but arouses to verbal stimuli, she is pleasantly confused. She shared that her pain is well managed now, c/o facial itching. Pt's spouse was at bedside, discussed plan of care / AMMONIA NITRATE OPERATOR symptom management and offered anticipatory guidance. Spouse expressed that pt had a better weekend and seemed more comfortable. Review of Systems Review of Systems: All systems reviewed & are unremarkable except as noted in HPI & below Physical Exam Physical Exam: Gen.: No acute distress. Drowsy, but arousable, oriented to person only. HEENT: Anicteric sclera. Neck: No obvious JVD. Cardiac: Regular. Normal S1-S2. mild edema to BLE. Pulmonary: Decreased breath sounds throughout Abdomen: Soft, nontender, nondistended, with normoactive bowel sounds. No bruits noted. Skin: no rashes, warm and dry pale Neurologic: PERRL, EOMI, accommodation nl, no face palsy, no dysarthria Results & Data Vital Signs (Past 12 Hours) Vital Signs Temp 36.9 C 07/28/24 07:35 Pulse 74 07/28/24 07:35 Resp 14 07/28/24 07:35 BP 116/80 07/28/24 07:35 Pulse Ox 93 07/28/24 07:35 O2 Del Method Room Air 07/30/24 21:45 O2 Flow Rate 2 07/26/24 11:31 FiO2 40 07/24/24 11:36 Intake & Output 07/30/24 07/31/24 07/31/24 18:59 06:59 18:59 Intake Total .922 / .2 19.468 / 19.468 Output Total 600 / 1000 400 / 1000 Balance -587.078 / -987.078 -400 / -987.078 19.468 / 19.468 Intake: IV .92 / . 19.468 / 19.468 HYDROmorphone 100 mg In 100 ml .922 / . 19.468 / 19.468 @ 1.1 MG/HR 1.1 mls/hr IV . [id number] [facility] Rx#:[id number] Output: Urine Amount (Catheter) 600 / 1000 400 / 1000 Henderson/Indwelling 600 / 1000 400 / 1000 Laboratory Results No further labs or diagnostics in concert with comfort directed care. Diagnostic Findings No further labs or diagnostics in concert with comfort directed care. Medications Administered Current Inpatient Medications Albuterol (Albut/Ipratrop 3mg/0.5mg Neb 3 Ml Vial) 3 ml NEB Q6R PRN; Protocol PRN Reason: Shortness Of Breath Or Wheezing Stop: 08/23/24 12:24 Fentanyl (Fentanyl 75 Mcg/Hr Tdsy) 1 patch TD Q72H TANIA Stop: 08/09/24 08:59 Last Admin: 07/29/24 09:08 Dose: 1 patch Glycopyrrolate (Glycopyrrolate 0.2 Mg/Ml Vial) 0.4 mg IV Q4H PRN PRN Reason: Rattling Secretions or Pulm Congestion Stop: 08/25/24 16:06 Hydromorphone HCl (Hydromorphone Bolus From Bag) 0.5 mg IV Q30M PRN PRN Reason: Comfort Care Parameters Stop: 08/11/24 11:34 Last Admin: 07/31/24 11:48 Dose: 0.5 mg Prochlorperazine 5 mg/ Syringe 5 mls @ 5 mls/min IV Q6H PRN PRN Reason: Nausea &/or Vomiting Stop: 08/27/24 09:55 Hydromorphone HCl (Dilaudid) 100 mg in 100 mls @ 1.5 mls/hr IV .[id number] TANIA; Protocol Stop: 08/11/24 11:44 Last Titration: 07/31/24 11:48 Dose: 1.5 mg/hr, 1.5 mls/hr Lorazepam (Lorazepam 2 Mg/1 Ml Vial) 0.5 mg IV Q8H TANIA Stop: 08/26/24 10:29 Last Admin: 07/31/24 10:42 Dose: 0.5 mg Lorazepam (Lorazepam 2 Mg/1 Ml Vial) 1 mg IV Q4H PRN PRN Reason: Anxiety/Agitation Stop: 08/25/24 16:06 Last Admin: 07/31/24 05:13 Dose: 1 mg Miscellaneous (Fentanyl Patch Remove & Waste) 1 each N/A Q3D TANIA Stop: 08/25/24 08:58 Last Admin: 07/29/24 09:09 Dose: 1 each Miscellaneous (Check Fentanyl Patch Placement) 1 each N/A QS [facility] Stop: 08/23/24 15:59 Last Admin: 07/31/24 09:35 Dose: 1 each Nitroglycerin (Nitroglycerin Sl 0.4 Mg/Tab Tab) 0.4 mg SL Q5M PRN PRN Reason: Chest Pain Stop: 08/24/24 18:38 Last Admin: 07/26/24 11:25 Dose: 0.4 mg Ondansetron HCl (Ondansetron Inj 2 Mg/Ml 2 Ml Vial) 4 mg IV Q6H PRN PRN Reason: Nausea And Vomiting Stop: 08/23/24 12:24 Last Admin: 07/31/24 05:12 Dose: 4 mg Promethazine HCl (Promethazine Hcl 25 Mg Tab) 12.5 mg PO Q6H PRN PRN Reason: Nausea &/or Vomiting Stop: 08/27/24 09:55 PG Care Time/CCT Total # of Minutes Spent Total Time Spent with Patient: Total time spent is greater than 50% in coordination of care (as documented) at patient's floor/unit and/or counseling patient: [place] [address] SUB INP/OBS CARE 09/02MIN Patient Type Established History Problem Focused Exam Problem Focused Medical Decision Making Low Complexity Diagnoses Palliative care by specialist Z51.5 Comfort measures only status Z51.5 Need for comfort care
[2024-07-31] MEDS: PROMETHAZINE HCL 25 MG TAB PO PRN (13:22)
--- NOTE | 2024-08-01 00:31 | Communication Note ---
Date of Service: August 01, 2024 I was notified by nursing that the family of Sanjuanita Santos had completed a new POLST form this evening (due to changes in their preference for the options in the original POLST), which requires a physician signature. Nursing also reported that [facility] hospice had assessed patient at bedside and provided recommendations which include: -Dilaudid 2mg/hr -Dilaudid bolus 0.7mg q15min -Ativan 1mg IVP q6h scheduled -Ativan 1mg IVP q2h PRN -Remove Fentanyl patch Nursing states that family is interested in implementing the recommendations tonight so that the patient can "get home as soon as possible". Will initiate changes step salvador- start with increase of Dilaudid from 1.7 to 2mg/hr, will hold on further changes at this time unless patient condition changes. Notified nursing that the POLST form should be signed by the daytime hospitalist, I will signout this to daytime provider. Resident Activity Tracking Resident Involvement: Resident Care Provided Care Provided: Adult Hospital Medicine
[2024-08-01] MEDS: ACETAMINOPHEN 1,000 MG/100 ML VIAL IV STA (01:15)
[2024-08-01] MEDS: LORazepam 2 MG/1 ML VIAL IV STA (01:24)
--- NOTE | 2024-08-01 13:16 | Discharge Summary ---
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 Evaluated by [facility] hospice 07/31 evening and accepted for GIP, will be discharged and readmitted with GIP and their recommendations Now on continuous Dilaudid IV Ativan 0.5mg IV tid scheduled and also with prn breakthrough Continue Robinul and atropine gtts prn secretions Ondansetron 1st line, Compazine and Phenergan for nausea O2 for comfort Continue Beatriz discussed with palliative care provider, Norma (2) Acute HFrEF (heart failure with reduced ejection fraction): (3) Acute on chronic hypoxic respiratory failure: (4) Elevated troponin: (5) CAD (coronary artery disease): (6) Acute hyponatremia: (7) Hyperglycemia due to type 2 diabetes mellitus: Plan Dispo:discharge for GIP updated at bedside 07/31, 08/01 and addiotnal family members. 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 She was just discharged home on 07/10 with acute on chronic respiratory failure requiring BiPAP, BiPAP was weaned to nasal cannula, she was given IV Bumex that resulted in hypotension, along with a course of oral antibiotics for possible pneumonia. She went home on hospice at this time. The patient presents today with her son and , due to increasing lower extremity edema and gradually worsening dyspnea. She called EMS because of dyspnea this morning. They gave her 1 DuoNeb, 2 albuterol treatments, and 125 IV Solu-Medrol. In the ED she was placed on BiPAP and given Nitropaste, Rocephin, 1 DuoNeb, Zofran, and 1 mg of Bumex IV. She stated that she has a lot of relief with those treatments, currently on BiPAP O2 trending between 97 to 98%. She stated that she has had worsening chest pain since her recent discharge, she takes nitroglycerin 2-3 times a day with relief. Patient denies fever, chills, dizziness, cough, sputum production. She continues to smoke 2 packs of cigarettes per day. She only uses her home oxygen overnight. She took all of her a.m. medications today, she stated that she has been compliant on all of her home medications. She just put her fentanyl patch on yesterday, orders adjusted to be replaced 72 hours after vance cement. Her family stated that they are unhappy with the hospice care and she agreed that she would like to be transitioned off of hospice on discharge. She wishes to be full code at this time, she would like to be resuscitated with CPR and intubation if needed in the event of acute emergency. Discharge Exam appears comfortable, breathing is unlabored Back: Pain with palpation between shoulder blades Regular heart rate positive murmur : Henderson in place Discharge Plan Discharge Items Patient Disposition: Hospice - Medical Facility Reason For Visit: hypoxia, acute chf Discharge Diagnosis: metastatic cancer, CHF, CAD Condition on Discharge: Serious Activity: As commented below Activity Comment: [employer]ENE[employer] STOCK GRADER Non-emergency contact: Primary Care Provider Call non-emergency contact if: you have any medication questions Follow-up/Referrals: Katarina Andre MD [Primary Care Provider] - Diet: Regular Addtl Attending Provider Instructions: D/c for GIP as pt is VENEER STOCK GRADER Pending Studies at Discharge: No Stand-Alone Forms: [facility] Skilled Items Patient informed of condition?: Yes DNR: Yes Discharge Level of Care: Other Communicable Disease: No Discharge Prognosis: Deteriorating Lines: Peripheral IV Urinary Catheter: Yes Medications and DC Order Prescriptions: Discontinued (DME) Wheeled Walker Misc See Rx Instructions .Route Qty: 1 0RF Rx Instructions: w/ a seat and hand brakes (DME) Hospital Bed Homecare Misc See Rx Instructions .Route Qty: 1 0RF Rx Instructions: As directed (DME) Wheelchair (Manual) Device See Rx Instructions .Route Qty: 1 0RF Rx Instructions: As directed (DME) WHEEL MOBILITY SCOOTER See Rx Instructions .Route .MEDSUPPLY Qty: 1 0RF Rx Instructions: As directed (DME) transport chair See Rx Instructions .Route .MEDSUPPLY Qty: 1 0RF Rx Instructions: As directed Magic Mouthwash 300 mL mouthwash 10 ml mucous membrane ACHS PRN (Reason: dysphagia) Qty: 300 3RF (DME) OneTouch Ultra Test Strip See Rx Instructions .Route Qty: 100 0RF Rx Instructions: As directed budesonide 0.5 mg/2 mL suspension for nebulization 0.5 mg NEB BID Qty: 60 6RF ondansetron HCl 4 mg tablet 4 mg PO QID PRN (Reason: nausea and vomiting) Qty: 120 5RF pregabalin [Lyrica] 150 mg capsule 150 mg PO TID Qty: 90 2RF nitroglycerin 0.4 mg tablet, sublingual 0.4 mg sublingual Q5M PRN (Reason: chest pain) Qty: 30 4RF Rx Instructions: do not exceed 3 doses per episode. call 911 if ongoing chest pain. (DME) blood-glucose meter [Shop HersTouch Ultra2 Meter] Misc See Rx Instructions .Route Qty: 1 0RF Rx Instructions: As directed (DME) lancets [OneTouch Delica Plus Lancet] 33 gauge misc See Rx Instructions .Route Qty: 100 0RF Rx Instructions: As directed albuterol sulfate 90 mcg/actuation HFA aerosol inhaler 2 puff inhalation QID PRN (Reason: shortness of breath or wheezing) Qty: 6.7 3RF (DME) Emotional Support Animal See Rx Instructions .Route .MEDSUPPLY Qty: 1 0RF Rx Instructions: Patient needs this for Anxiety and overall health levocetirizine [Xyzal] 5 mg tablet 5 mg PO DAILY PRN (Reason: allergies) Rx Instructions: Unable to verify OTC meds at this date/time formoterol fumarate [Perforomist] 20 mcg/2 mL solution for nebulization 0 mcg inhalation BIDR Rx Instructions: Last filled 02/2024 x30 day supply, unable to verify if pt still taking/getting samples. Original Directions: 20mcg twie daily Incruse Ellipta 62.5 mcg/actuation blister with device 0 inh inhalation DAILY Rx Instructions: Last filled 02/2024 x30 day supply, unable to verify if pt still taking/getting samples. Original Directions: 1 puff daily atorvastatin 40 mg Tablet 40 mg PO QAM Qty: 30 0RF isosorbide mononitrate 60 mg Tablet Extended Release 24 Hr 60 mg PO QAM Qty: 30 0RF spironolactone 25 mg Tablet 25 mg PO QAM Qty: 30 0RF sacubitril-valsartan [Entresto] 24-26 mg Tablet 1 tab PO BID Qty: 60 0RF aspirin 81 mg Tablet,Delayed Release (Dr/Ec) 81 mg PO QAM Qty: 30 0RF Rx Instructions: Unable to verify OTC meds at this date/time. bumetanide 1 mg tablet 1 mg PO BID Qty: 60 0RF oxycodone 5 mg Tablet 10 mg PO Q6H PRN (Reason: pain or breathlessness) Qty: 30 0RF fentanyl 50 mcg/hr patch 72 hour 0 mcg transdermal Q72H Rx Instructions: Per pharmacy: 75mcg/hr (new script) was picked up on 07/23/24, look like patient will start 75mcg on 07/25/24 but unsure. Original Directions: 50mcg/hr transdermal every 72 hours. metoprolol succinate 50 mg tablet extended release 24 hr 0 mg PO DAILY Rx Instructions: Last filled 05/2024 x30 day supply, unable to verify if pt still taking. Original Directions: 50mg by mouth daily lorazepam 1 mg tablet 1 mg PO TID PRN (Reason: Signs/Symptoms Terminal Restlessness) ranolazine 500 mg tablet extended release 12 hr 0 mg PO BID Rx Instructions: Last filled 05/2024 x30 day supply, unable to verify if pt still taking. Original Directions: 500mg by mouth twice daily Eliquis 5 mg tablet 0 mg PO BID Rx Instructions: Last filled 05/2024 x30 day supply, unable to verify if pt still taking/getting samples. Original Directions: 5mg by mouth twice daily olanzapine 2.5 mg tablet 2.5 mg PO UD PRN (Reason: Nausea And Vomiting) prochlorperazine maleate 10 mg tablet 10 mg PO DIRECTED PRN (Reason: NAUSEA/VOMITING) Discharge Orders: Discharge Order (Routine); Ordered 08/01/24 Ordered By: Sierra Turner Admission Data Admit Date/Time: 07/24/24 11:21 Attending Provider: Claudia Summers Admit Provider: Juanita Estrella Primary Care Provider: Katarina Andre Other Providers: [facility],Home Healthcare; Juanita Estrella; Norma Trujillo; Brian Lizama Hospital Stay Data Consultations 07/24/24 10:45 ED Decision to Admit Stat 07/24/24 16:32 Consult Palliative Care Routine 07/25/24 17:30 Consult Cardiology Routine Pending Results Patient Have Any Pending Studies at Discharge: No Discharge Instructions Given to Patient (Per Discharging Provider) D/c for GIP as pt is VENEER STOCK GRADER Total Time Total Time Spent Total Time Spent (In Minutes): Time spent day of discharge 25 minutes including direct patient care, medication reconciliation, documentation, review of labs and images, and coordination of care. Coding Level of Care Code 89677 IN/OBS DISCH 30 MIN/LESS Diagnoses Comfort measures only status Z51.5 Acute HFrEF (heart failure with reduced ejection fraction) I50.21 Acute on chronic hypoxic respiratory failure J96.21 Elevated troponin R79.89 CAD (coronary artery disease) I25.10 Acute hyponatremia E87.1 Hyperglycemia due to type 2 diabetes mellitus E11.65
== END 2024-08-01 13:50 | disposition hospice, inpatient (51) | DRG 280 ==
LOC: SUATTDRO → ED 09:07 → SUATTDRO 11:21 → INTOOBSV 11:21 → 2S 11:21 → 2E 07-26 18:32 → 3E 07-27 17:23

== ENCOUNTER 2024-08-01 13:20 | Inpatient (IN) ==
[2024-08-01] MEDS ORDERED: LORazepam 2 MG/1 ML VIAL IV PRN (13:26)
[2024-08-01] MEDS ORDERED: STAT IV Infusion **Titration per Protocol STA (13:26)
--- NOTE | 2024-08-01 13:33 | History & Physical Report ---
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 She was just discharged on hospice. Presented to the ED on 07/24 for concerns for difficulty breathing, likely secondary to CHF exacerbation. Cardiology was previously involved not acute intervention with meaningful benefit. Patient was transitioned to BEHAVIORAL SCIENTIST on 07/26 per discussion with pt and family. Evaluated and accepted to GIP with [facility] hospice on 08/01. Recommendations from [facility] hospice (ordered): - D/c palliative Services - Decreased fentanyl to 50mcq Q3 days - Lorazepam - 1mg IV q4 scheduled - lorazepam 2mg IV q5min prn seizure - continue diluadid drip, not to exceed basal dose of 2.5mg [facility] hospice will visit pt daily. If needing to contact them call Keep wheatley in place. Continue PRN robinul, zofran and Phenergan. (2) CAD (coronary artery disease): (3) Small cell carcinoma of lung: Plan Dispo: continued inpatient stay, BEHAVIORAL SCIENTIST/GIP family updated at bedside 08/01 History of Present Illness Chief Complaint: GIP status Primary Care Provider: Katarina Andre MD Patient is a 64-year-old female with a past medical history of small cell carc inoma of left lower lobe with metastatic disease to brain, s/p WBRT, paroxysmal A-fib on Eliquis, COPD, diffuse multivessel coronary disease, NSTEMI during recent admission 06/27-06/29. She was just discharged on hospice. Presented to the ED on 07/24 for concerns for difficulty breathing, likely secondary to CHF exacerbation. Cardiology was previously involved not acute intervention with meaningful benefit. Was BEHAVIORAL SCIENTIST and has now qualified for GIP with [facility] hospice. Allergies Allergy/AdvReac Type Severity Reaction Status Date / Time latex Allergy Intermediate skin Verified 05/15/24 10:08 itching Influenza Virus Vaccines AdvReac Severe developed Verified 05/15/24 10:08 blood clots vaccine adjuvant system, AdvReac Severe blood clots Verified 05/15/24 10:08 AS01B liposomal [From Shingrix (PF)] varicella-zoster virus AdvReac Severe blood clots Verified 05/15/24 10:08 glycoprotein E, recombinant [From Shingrix (PF)] zolpidem [From Ambien] AdvReac Severe Hallucinati Verified 05/15/24 10:08 ng Past Med/Surg History Problem List (Updated 07/27/24 @ 11:31 by NIC Jules) Need for comfort care Comfort measures only status Dyspnea on exertion Counseling regarding goals of care Palliative care by specialist Cancer-related breakthrough pain Acute hyperglycemia (Acute) Elevated troponin (Acute) Fluid overload (Acute) Tachycardia (Acute) Tachypnea (Acute) COPD exacerbation (Acute) Leukocytosis (Acute) Respiratory distress (Acute) Hypomagnesemia Hyperglycemia due to type 2 diabetes mellitus Leukocytosis Acute on chronic hypoxic respiratory failure Acute hyponatremia (Acute) Acute kidney injury (Acute) Respiratory failure (Acute) Cardiomyopathy Acute HFrEF (heart failure with reduced ejection fraction) Paroxysmal atrial fibrillation Aortic stenosis mild to moderate on 05/2023 echo (DAVIS 1.0 cm2, mean PG 15 mmHg) Diabetes mellitus, type 2 Thrush, oral CAD (coronary artery disease) Tobacco dependence Acute on chronic diastolic (congestive) heart failure Hypoxia Acute hypoxemic respiratory failure (Acute) Acute dyspnea (Acute) Bilateral leg edema (Acute) Lower extremity pain Unwitnessed fall (Acute) Aspiration pneumonia (Acute) Elevated troponin (Acute) Cancer related pain (Acute) Psychosocial problem Brain metastasis (Chronic) Hemoptysis Encounter for pain management Small cell carcinoma of lung (Acute) Anemia (Acute) Diabetes Unusual change in behavior 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 details Chest pain (Acute) Abscess of upper gum Acute bronchitis Cough Allergic rhinitis Dyspnea on exertion Routine health maintenance Trochanteric bursitis of both hips Stress bladder incontinence, female Smoker Insomnia (Chronic) HTN (hypertension), benign (Chronic) Left hip pain (Acute) Anxiety (Acute) Asthma (Chronic) Lyme disease (Chronic) Fibromyalgia (Chronic) Chronic radicular lumbar pain (Chronic) Hypothyroid (Chronic) COPD (chronic obstructive pulmonary disease) (Chronic) CVD (cardiovascular disease) (Chronic) Medical History Acute on chronic respiratory failure with hypoxia and hypercapnia Non-ST elevation DC (NSTEMI) Refusal of blood transfusions as patient is Mu-ism Lung cancer metastatic to brain Chronic respiratory failure Takotsubo cardiomyopathy history of Takotsubo cardiomyopathy per [place] [facility] Aneurysmal dilatation AAA, 3.4 cm History of COVID-19 07/2023 Lumbar disc herniation Peripheral neuropathy bilateral legs Hx of deep venous thrombosis years ago Anxiety Onychomycosis Hypotension still occurring occasionally Hypertensive urgency History of TIA (transient ischemic attack) 2018, no deficits History of myocardial infarction x 5 Surgical History History of cardiac cath x 5 stents,between 2014- 2017, done in [place] History of cholecystectomy History of section History of coronary artery stent placement Family History Mother Myocardial infarction Daughter Myocardial infarction Denies family history of Ovarian cancer Prostate cancer Breast cancer Colorectal cancer Social History Smoking Status: Current every day smoker Tobacco Type: Cigarettes Age Started Using Tobacco: 15; packs per day: 1; Cigarettes Per Day: half a pack; Second Hand Exposure: No; Do You Dip or Chew Tobacco: No; Hx Alcohol Use: No Hx Substance Use: No Preferred Language: Honduran Communication Ability: Effective Visual Impairment: No Limitations Security Assessor Required: No Beliefs That Will Affect Care: Spiritual Spiritual Healthcare Practices: Refuses any blood products marital status: Current Living Situation: Family Current Living Situation Comment: lives at home with . current occupational status: disabled How many Children do You have: 6 How many Children do You have Comment: 11 children, 6 biologic - 2 , son murdered in 2022 Feels Safe at Home: Yes Childhood Exposure to Second-Hand Smoke: Yes Diet: diabetic and regular caffeine: Yes (Coffee) Dental Care, Regularly: No Physical Activity Frequency: Daily Physical Activity Frequency Comment: Daily housework/activites Seatbelt Use: always Sunscreen Use: No Assistive Devices: Scooter/Electric Scooter and Walker Physical Exam Physical Exam: resting in bed, awakens briefly spontaneously does not appear in pain not restless like she was yesterday wheatley draining concentrated urine Code Status & VTE Plan VTE Prophylaxis Plan VTE Prophylaxis will be ordered: No PG Care Time/CCT Total # of Minutes Spent Total Time Spent with Patient: Total time spent is greater than 50% in coordination of care (as documented) at patient's floor/unit and/or counseling patient: Coding Level of Care Code 65745 INT INP/OBS CARE 1/40MIN Diagnoses Comfort measures only status Z51.5 CAD (coronary artery disease) I25.10 Small cell carcinoma of lower lobe of left lung C34.32 Laterality: left Lung location: lower lobe of lung (3) Small cell carcinoma of lung Laterality: left Lung location: lower lobe of lung Qualified Code(s): C34.32 - Malignant neoplasm of lower lobe, left bronchus or lung
[2024-08-01] MEDS: fentaNYL 50 MCG/HR TDSY TD SCH (16:12)
[2024-08-01] MEDS: LORazepam 2 MG/1 ML VIAL IV SCH (16:13)
[2024-08-01] MEDS: CHECK fentaNYL PATCH PLACEMENT SCH (16:18)
[2024-08-01] MEDS: HYDROmorphone 100 MG/100 ML BAG IV SCH (20:39)
[2024-08-01] MEDS: ONDANSETRON INJ 2 MG/ML 2 ML VIAL IV PRN (21:27)
[2024-08-02] MEDS: HYDROmorphone BOLUS from BAG IV PRN (06:08)
--- NOTE | 2024-08-02 12:47 | Hospitalist Progress Note ---
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 She was just discharged on hospice. Presented to the ED on 07/24 for concerns for difficulty breathing, likely secondary to CHF exacerbation. Cardiology was previously involved not acute intervention with meaningful benefit. Patient was transitioned to BOOM STORAGE on 07/26 per discussion with pt and family. Evaluated and accepted to [facility] with [facility] hospice on 08/01. Recommendations from [facility] hospice (ordered): - D/c palliative Services - Decreased fentanyl to 50mcq Q3 days - Lorazepam - 1mg IV q4 scheduled - lorazepam 2mg IV q5min prn seizure - continue diluadid drip, not to exceed basal dose of 2.5mg [facility] hospice will visit pt daily. If needing to contact them call Keep wheatley in place. Continue PRN robinul, zofran and Phenergan. Patient's requested diet, soft bite sized food ordered for patient. family advised of risk of aspiration w/ diet. (2) CAD (coronary artery disease): (3) Small cell carcinoma of lung: Plan Dispo: continued inpatient stay, BOOM STORAGE/GIP Admission and Anticipated Discharge Date Admission Date: August 01, 2024 Subjective Patient seen and examined with friend at bedside. patient offered no complaints at time of encounter. She ate a small amount for breakfast and was sitting up in bed. Physical Exam Constitutional: resting in bed comfortably. wheatley draining concentrated urine. does not appear in pain PG Care Time/CCT Total # of Minutes Spent Total Time Spent with Patient: Total time spent is greater than 50% in coordination of care (as documented) at patient's floor/unit and/or counseling patient: Coding Level of Care Code 38716 SUB INP/OBS CARE 09/02MIN Diagnoses Comfort measures only status Z51.5 CAD (coronary artery disease) I25.10 Small cell carcinoma of lower lobe of left lung C34.32 Laterality: left Lung location: lower lobe of lung (3) Small cell carcinoma of lung Laterality: left Lung location: lower lobe of lung Qualified Code(s): C34.32 - Malignant neoplasm of lower lobe, left bronchus or lung
[2024-08-02] MEDS: diphenhydrAMINE 50 MG/ML VIAL IV PRN (21:22)
[2024-08-02] MEDS: LORazepam 2 MG/1 ML VIAL IV SCH (21:22)
[2024-08-03] MEDS: GLYCOPYRROLATE 0.2 MG/ML VIAL IV PRN (00:56)
--- NOTE | 2024-08-03 10:56 | Hospitalist Progress Note ---
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 She was just discharged on hospice. Presented to the ED on 07/24 for concerns for difficulty breathing, likely secondary to CHF exacerbation. Cardiology was previously involved not acute intervention with meaningful benefit. Patient was transitioned to MARKETING CLERK on 07/26 per discussion with pt and family. Evaluated and accepted to [facility] with [facility] hospice on 08/01. Recommendations from [facility] hospice (ordered): - D/c palliative Services - Decreased fentanyl to 50mcq Q3 days - Lorazepam - 1mg IV q3 hour scheduled - lorazepam 2mg IV q5min prn seizure - continue Dilaudid drip, not to exceed basal dose of 2.5mg [facility] hospice will visit pt daily. If needing to contact them call Keep wheatley in place. Continue PRN robinul, zofran and Phenergan. Patient's requested diet, soft bite sized food ordered for patient. family advised of risk of aspiration w/ diet. (2) CAD (coronary artery disease): (3) Small cell carcinoma of lung: Plan Dispo: continued inpatient stay, MARKETING CLERK/GIP Admission and Anticipated Discharge Date Admission Date: August 01, 2024 Subjective Patient seen and examined this morning. Patient sleeping at time of encounter. Spoke w/ at bedside who reports she slept the entire night and appears comfortable and not in pain. Physical Exam Constitutional: sleeping at time of encounter Results & Data Results & Data Vital Signs (Past 12 Hours) Vital Signs O2 Del Method 08/03/24 09:45 Room Air PG Care Time/CCT Total # of Minutes Spent Total Time Spent with Patient: Total time spent is greater than 50% in coordination of care (as documented) at patient's floor/unit and/or counseling patient: Coding Level of Care Code 63376 SUB INP/OBS CARE 1/25MIN Diagnoses Comfort measures only status Z51.5 CAD (coronary artery disease) I25.10 Small cell carcinoma of lower lobe of left lung C34.32 Laterality: left Lung location: lower lobe of lung (3) Small cell carcinoma of lung Laterality: left Lung location: lower lobe of lung Qualified Code(s): C34.32 - Malignant neoplasm of lower lobe, left bronchus or lung
[2024-08-03] MEDS ORDERED: Nursing to Pharmacy Communication SCH (20:30)
[2024-08-04] MEDS: HYDROmorphone BOLUS from BAG IV PRN (01:25)
[2024-08-04] MEDS: PROMETHAZINE 12.5 MG/50.5 ML BAG IV PRN (02:04)
[2024-08-04] MEDS: fentaNYL 25 MCG/HR TDSY TD SCH (02:48)
[2024-08-04] MEDS: CHECK fentaNYL PATCH PLACEMENT SCH (09:12)
--- NOTE | 2024-08-04 13:42 | Hospitalist Progress Note ---
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 She was just discharged on hospice. Presented to the ED on 07/24 for concerns for difficulty breathing, likely secondary to CHF exacerbation. Cardiology was previously involved not acute intervention with meaningful benefit. Patient was transitioned to WEB CONTENT EXECUTIVE on 07/26 per discussion with pt and family. Evaluated and accepted to [facility] with [facility] hospice on 08/01. Recommendations from [facility] hospice (ordered): - D/c palliative Services - Lorazepam - 1mg IV q3 hour scheduled - lorazepam 2mg IV q5min prn seizure - continue Dilaudid drip, not to exceed basal dose of 2.5mg - Fentanyl patch re-started labview programmer of 08/04 due to increased symptoms. made [facility] Hospice aware [facility] hospice will visit pt daily. If needing to contact them call Keep wheatley in place. Continue PRN robinul, zofran and Phenergan. Patient's requested diet, soft bite sized food ordered for patient. family advised of risk of aspiration w/ diet. (2) CAD (coronary artery disease): (3) Small cell carcinoma of lung: Plan Dispo: continued inpatient stay, WEB CONTENT EXECUTIVE/GIP Admission and Anticipated Discharge Date Admission Date: August 01, 2024 Subjective Patient seen and examined this morning. at bedside. overnight patient required to be started back on Fentanyl patch for pain and SOB. At time of encounter patient was sleeping. Patient's reports she has slept all morning. She appeared comfortable. Physical Exam Constitutional: asleep, appears comfortable and not in pain Results & Data Results & Data Vital Signs (Past 12 Hours) Vital Signs O2 Del Method 08/04/24 07:45 Room Air PG Care Time/CCT Total # of Minutes Spent Total Time Spent with Patient: Total time spent is greater than 50% in coordination of care (as documented) at patient's floor/unit and/or counseling patient: Coding Level of Care Code 04425 SUB INP/OBS CARE 25MIN Diagnoses Comfort measures only status Z51.5 CAD (coronary artery disease) I25.10 Small cell carcinoma of lower lobe of left lung C34.32 Laterality: left Lung location: lower lobe of lung (3) Small cell carcinoma of lung Laterality: left Lung location: lower lobe of lung Qualified Code(s): C34.32 - Malignant neoplasm of lower lobe, left bronchus or lung
[2024-08-05] MEDS: NYSTATIN POWDER 15GM BTL EXT PRN (00:37)
[2024-08-05] MEDS: LORazepam 2 MG/1 ML VIAL IV SCH (05:31)
--- NOTE | 2024-08-05 12:33 | Hospitalist Progress Note ---
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 She was just discharged on hospice. Presented to the ED on 07/24 for concerns for difficulty breathing, likely secondary to CHF exacerbation. Cardiology was previously involved not acute intervention with meaningful benefit. Patient was transitioned to HAND ENGRAVER on 07/26 per discussion with pt and family. Evaluated and accepted to GIP with [facility] hospice on 08/01. Recommendations from [facility] hospice (ordered): - Lorazepam - 1mg IV q2 hour scheduled - lorazepam 2mg IV q5min prn seizure - continue Dilaudid drip, not to exceed basal dose of 2.5mg - Dilaudid 1mg bolus q20 minutes prn - Fentanyl patch re-started alarm installation technician of 08/04 due to increased symptoms. made [facility]osp[facility] aware [facility] hospice will visit pt daily. If needing to contact them call Keep [place] in place. Continue PRN robinul, zofran and Phenergan, Benadryl (2) CAD (coronary artery disease): (3) Small cell carcinoma of lung: Plan Dispo: continued inpatient stay, HAND ENGRAVER/GIP Discussed w/ at bedside Admission and Anticipated Discharge Date Admission Date: August 01, 2024 Subjective Patient seen and examined this morning. at bedside. overnight patient required changes to her comfort medications including Ativan and required diluadid boluses. Patient resting comfortably at time of my encounter and sleeping. reports more labored breathing today thus far. Physical Exam Constitutional: asleep in bed. does appear comfortable and not in pain Results & Data Results & Data Vital Signs (Past 12 Hours) Vital Signs O2 Del Method 08/05/24 07:45 Room Air PG Care Time/CCT Total # of Minutes Spent Total Time Spent with Patient: Total time spent is greater than 50% in coordination of care (as documented) at patient's floor/unit and/or counseling patient: Coding Level of Care Code 82581 SUB INP/OBS CARE 09/02MIN Diagnoses Comfort measures only status Z51.5 CAD (coronary artery disease) I25.10 Small cell carcinoma of lower lobe of left lung C34.32 Laterality: left Lung location: lower lobe of lung (3) Small cell carcinoma of lung Laterality: left Lung location: lower lobe of lung Qualified Code(s): C34.32 - Malignant neoplasm of lower lobe, left bronchus or lung
[2024-08-05] MEDS: HYDROmorphone BOLUS from BAG IV PRN (12:58)
[2024-08-05] MEDS ORDERED: Nursing to Pharmacy Communication SCH (22:30)
--- NOTE | 2024-08-06 12:41 | Hospitalist Progress Note ---
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 She was just discharged on hospice. Presented to the ED on 07/24 for concerns for difficulty breathing, likely secondary to CHF exacerbation. Cardiology was previously involved not acute intervention with meaningful benefit. Patient was transitioned to IP TECHNOLOGY TRANSACTIONS ATTORNEY on 07/26 per discussion with pt and family. Evaluated and accepted to GIP with [facility] hospice on 08/01. Recommendations from [facility] hospice (ordered): - Lorazepam - 1mg IV q2 hour scheduled - lorazepam 2mg IV q5min prn seizure - continue Dilaudid drip, not to exceed basal dose of 2.5mg - Dilaudid 1mg bolus q20 minutes prn - Fentanyl patch re-started tank maker wood of 08/04 due to increased symptoms. [facility] hospice will visit pt daily. If needing to contact them call Keep [place] in place. Continue PRN robinul, zofran and Phenergan, Benadryl (2) CAD (coronary artery disease): (3) Small cell carcinoma of lung: Plan Dispo: continued inpatient stay, IP TECHNOLOGY TRANSACTIONS ATTORNEY/GIP discussed in detail w/ [facility] hospice nurse, [place] Admission and Anticipated Discharge Date Admission Date: August 01, 2024 Subjective Patient seen and examined this morning w/ hospice nurse. Patient sleeping soundly at time of encounter. appeared comfortable. no family present during encounter. Physical Exam Constitutional: sleeping at time of encounter. appeared comfortable PG Care Time/CCT Total # of Minutes Spent Total Time Spent with Patient: Total time spent is greater than 50% in coordination of care (as documented) at patient's floor/unit and/or counseling patient: Coding Level of Care Code 89850 SUB INP/OBS CARE 2/35MIN Diagnoses Comfort measures only status Z51.5 CAD (coronary artery disease) I25.10 Small cell carcinoma of lower lobe of left lung C34.32 Laterality: left Lung location: lower lobe of lung (3) Small cell carcinoma of lung Laterality: left Lung location: lower lobe of lung Qualified Code(s): C34.32 - Malignant neoplasm of lower lobe, left bronchus or lung
--- NOTE | 2024-08-06 20:42 | Death Pronouncement Note ---
Date of Service August 06, 2024 Pronouncement Note Admission Date Admission Date: August 01, 2024 Contributing Factors (1) Comfort measures only status: (2) CAD (coronary artery disease): (3) Small cell carcinoma of lung: Summary Additional details: I was called to pronounce the of Sanjuanita Santos (: 1960) by nursing staff on 08/06/2024. Upon entering the room, patient was found to be in a terminal state. They were unresponsive to, and did not withdrawal from, verbal or tactile stimuli. They were unresponsive to pupillary and oculocephalic reflexes. On cardiopulmonary exam, they were found to be without detectable carotid and radial pulses and without spontaneous heart tones or respirations. Time of was pronounced by me on 08/06/2024 at 20:33. Attending physician was notified. Next of kin was at bedside. Signed, Leela Ramirez D.O. Additional Data Attending physician: Salo Adams MD
--- NOTE | 2024-08-07 07:59 | Discharge Summary ---
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 She was just discharged on hospice. Presented to the ED on 07/24 for concerns for difficulty breathing, likely secondary to CHF exacerbation. Cardiology was previously involved not acute intervention with meaningful benefit. Patient was transitioned to [employer] on 07/26 per discussion with pt and family. Evaluated and accepted to GIP with [facility] hospice on 08/01. Patient on 08/06/2024 at 20:33. was pronounced by Dr. Leela Ramirez and next of kin was at bedside. Cause of was multi-factorial including small cell carcinoma of left lower lobe with metastatic disease to the brain and diffuse multivessel coronary disease. 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 She was just discharged on hospice. Presented to the ED on 07/24 for concerns for difficulty breathing, likely secondary to CHF exacerbation. Cardiology was previously involved not acute intervention with meaningful benefit. Was [employer] and has now qualified for GIP with [facility] hospice. Discharge Plan Discharge Items Patient Disposition: Other Date/Time: 08/06/24 19:45 Hospital Stay Data Consultations 08/05/24 16:45 Consult Patient Rep [Consult Patient Services] Routine Total Time Total Time Spent Total Time Spent (In Minutes): 25 Total Time Includes: Other Coding Level of Care Code 19791 IN/OBS DISCH 30 MIN/LESS Diagnoses Comfort measures only status Z51.5 CAD (coronary artery disease) I25.10 Small cell carcinoma of lower lobe of left lung C34.32 Laterality: left Lung location: lower lobe of lung
== END 2024-08-06 23:38 | disposition expired | DRG 951 ==
LOC: 3E 14:05 → SUATTDRO 14:05
DX: Z88.7 Allergy status to serum and vaccine; I25.10 Atherosclerotic heart disease of native coronary artery without angina pectoris; Z88.8 Allergy status to other drugs, medicaments and biological substances; F17.210 Nicotine dependence, cigarettes, uncomplicated; I25.2 Old myocardial infarction; Z51.5 Encounter for palliative care; I48.0 Paroxysmal atrial fibrillation; C79.31 Secondary malignant neoplasm of brain; Z92.3 Personal history of irradiation; J44.9 Chronic obstructive pulmonary disease, unspecified; Z91.040 Latex allergy status; Z79.01 Long term (current) use of anticoagulants; C34.32 Malignant neoplasm of lower lobe, left bronchus or lung